=== PATIENT | female | born 1940 | race Caucasian/White ===

== ENCOUNTER → 2016-09-30 | Outpatient (CLI) | payer MEDICARE ==
[2016-09-30 11:25] LABS: ALT 34 U/L (9-52); AST 15 U/L (14-36); Alkaline Phosphatase 64 U/L (38-126); Anion Gap 11 mmol/L; Blood Urea Nitrogen 20 mg/dL (7-17); Calcium 9.5 mg/dL (8.4-10.2); Carbon Dioxide 29 mmol/L (22-30); Chloride 105 mmol/L (98-107); Cholesterol 152 mg/dL (<200); Glucose 112 mg/dL (74-99); HDL Cholesterol 44 mg/dL (40-60); Non-African American GFR(MDRD) 56 (>60 ml/min/1.73 sqM); Potassium 4.6 mmol/L (3.5-5.1); Sodium 145 mmol/L (137-145); Total Bilirubin 0.6 mg/dL (0.2-1.3); Total Protein 6.7 g/dL (6.3-8.2); Triglycerides 186 mg/dL (<150)
[2016-09-30 11:26] LABS: Basophils # (A) 0.1 k/uL (0-0.2); Basophils % (A) 1 %; CH 30.1; Eosinophils # (A) 0.1 k/uL (0-0.7); Eosinophils % (A) 2 %; HCT 43.6 % (34.0-46.0); HDW 2.83; HGB 14.1 gm/dL (11.4-16.0); Luc # (Auto) 0.16; Luc % (Auto) 3; Lymphocytes # (A) 1.6 k/uL (1.0-4.8); Lymphocytes % (A) 24 %; MCH 29.6 pg (25.0-35.0); MCHC 32.4 g/dL (31.0-37.0); MCV 91.4 fL (80.0-100.0); Monocytes # (A) 0.4 k/uL (0-1.0); Monocytes % (A) 5 %; Neutrophils # (A) 4.4 k/uL (1.3-7.7); Neutrophils % (A) 66 %; RBC 4.77 m/uL (3.80-5.40); RDW 14.3 % (11.5-15.5); WBC 6.6 k/uL (3.8-10.6); WBC (Perox) 6.91
== END | disposition home or self-care (01) ==
LOC: LABWHC1 10:23
PROVIDERS: ATTEND Internal Medicine
DX: E78.5 Hyperlipidemia, unspecified (principal); I10 Essential (primary) hypertension
CPT/HCPCS: 36415; 80053; 80061; 84439; 84443; 85025

== ENCOUNTER 2016-10-10 10:40 | Day surgery (SDC) | payer MEDICARE ==
[2016-10-07 15:51] VITALS: BMI 30.4
[~2016-10-10 10:40] MED LIST: LACTATED RINGERS 1,000 ML IV SCH; LIDOCAINE 1% 20 ML VIAL (10MG/ML) FOR IV START INTRADERMA PRN
[2016-10-10 12:07] VITALS: RESP 18; TEMP 98.8
[2016-10-10] MEDS ORDERED: PROPOFOL 10 MG/ML 20 ML VIAL IV ONE (12:07)
--- NOTE | 2016-10-10 12:30 | P.PCN ---
Date of Procedure: 10/10/16 Procedure(s) Performed: Procedure: Esophagogastroduodenoscopy and biopsy. Preoperative diagnosis: Dysphagia and stomach upset. Postoperative diagnosis: 1. Small sliding hiatal hernia with no obvious esophagitis or complicated reflux disease. 2. Mild gastritis and duodenitis. 3. Multiple biopsies obtained from the duodenum, antrum and esophagus. Preparation and sedation: Were provided by anesthesia. Brief clinical history: The patient is a 76-year-old female with chronic reflux symptoms who is referred for this evaluation because of dysphagia and issues with nausea and vomiting that she has had on and off worse over the last few months. This evaluation is to assess for complicated reflux disease or other pathology. Procedure: With the patient on her left lateral decubitus position and after informed consent and adequate sedation, I passed the Olympus-GIF 160 video upper endoscope through the cricopharyngeus down the esophagus. GE junction was around 38-39 cm from the incisors and there was a small sliding hiatal hernia. The esophagus did not show any obvious erosions, ulcers, strictures or Covington's esophagus. The endoscope was then passed into the stomach which was insufflated with air and inspected in detail including the retroflex view in the cardia. There was some mottling and erythema in the antrum but no ulcers or erosions. Pyloric channel did not show any ulcers. Duodenal bulb, post bulbar area and descending duodenum showed minimal erythema. I obtained multiple biopsies from the duodenum, antrum and esophagus then the endoscope was withdrawn. The patient tolerated the procedure well. Plan: The patient was reassured. Will await biopsy results. Will continue symptomatic treatment and further plans can be made based on her course and biopsy results. Would be happy to see in the office of her symptoms persist.
[2016-10-10 16:32] VITALS: BP 154/69; PULSE 53
== END 2016-10-10 13:20 | disposition home or self-care (01) ==
LOC: ORWHC2ENDO 10:40
DX: K29.50 Unspecified chronic gastritis without bleeding (principal); K29.80 Duodenitis without bleeding; K44.9 Diaphragmatic hernia without obstruction or gangrene; K21.9 Gastro-esophageal reflux disease without esophagitis; J45.909 Unspecified asthma, uncomplicated; J44.9 Chronic obstructive pulmonary disease, unspecified; I10 Essential (primary) hypertension; E78.5 Hyperlipidemia, unspecified; G47.33 Obstructive sleep apnea (adult) (pediatric); E07.9 Disorder of thyroid, unspecified; F39 Unspecified mood [affective] disorder; Z86.711 Personal history of pulmonary embolism; Z79.899 Other long term (current) drug therapy; Z88.1 Allergy status to other antibiotic agents; Z88.2 Allergy status to sulfonamides; Z88.8 Allergy status to other drugs, medicaments and biological substances
CPT/HCPCS: 88305; 88342; 43239; J2704

== ENCOUNTER → 2016-12-03 | Outpatient (CLI) | payer MEDICARE ==
--- NOTE | 2016-12-03 10:09 | CT ---
EXAMINATION TYPE: CT chest wo con DATE OF EXAM: 12/03/2016 9:40 AM COMPARISON: August 26, 2012 HISTORY: SOB CT DLP: 405.[address] of the chest was performed with lung and mediastinal window settings submitted. The la ck of contrast limits evaluation of the vascular, mediastinal and parenchymal structures including th e upper abdomen. LUNGS: Right upper lobe nodule is unchanged in size and measures 6 mm. Right middle lobe nodule withi n its periphery is also unchanged and measures 4 mm. 4 mm right upper lobe nodule is also unchanged a djacent to the fissure. Left upper lobe nodule is unchanged image 19 and measures 4.2 mm. No addition al nodules are seen. There is no evidence for pulmonary mass. Hyperinflation compatible with COPD. MEDIASTINUM/KADE: Thoracic aorta is of normal caliber with limited evaluation given lack of contrast . Atheromatous changes seen of the thoracic aorta. The heart is enlarged. Coronary artery calcific ations seen. Chronic small pericardial effusion measuring 9 mm posteriorly. No evidence for mediastin al mass. No lymph nodes greater than 1cm. UPPER ABDOMEN: Cholecystectomy clips identified. OTHER: No significant other abnormality. IMPRESSION: 1. Mild COPD change. No evidence for infiltrate. 2. Stable nonspecific pulmonary nodularity dating back to 2012 indicating benign process. 3. Cardiomegaly with small pericardial effusion.
== END | disposition home or self-care (01) ==
LOC: RADCTMAIN 09:12
PROVIDERS: ATTEND Internal Medicine Hematology & Oncology
DX: J44.9 Chronic obstructive pulmonary disease, unspecified (principal); I51.7 Cardiomegaly; I31.3 Pericardial effusion (noninflammatory); R92.8 Other abnormal and inconclusive findings on diagnostic imaging of breast; C44.92 Squamous cell carcinoma of skin, unspecified
CPT/HCPCS: 71250

== ENCOUNTER 2017-01-28 07:57 | Day surgery (SDC) | payer MEDICARE ==
[~2017-01-28 07:57] MED LIST changes: +ONDANSETRON 4 MG/2 ML VIAL IVP PRN
[2017-01-28] MEDS ORDERED: LACTATED RINGERS 1,000 ML IV ONE (08:14)
[2017-01-28] MEDS ORDERED: SCOPOLAMINE 1.5MG/72HR PATCH TRANSDERM ONE (08:28)
[2017-01-28] MEDS ORDERED: HEPARIN SODIUM,PORCINE 5,000 UNIT/ML 1 ML VIAL SQ ONE ×2 (08:30→08:53)
[2017-01-28] MEDS ORDERED: diphenhydrAMINE 50 MG/ML 1 ML VIAL ONE (09:37)
[2017-01-28] MEDS ORDERED: PROPOFOL 10 MG/ML 20 ML VIAL IV ONE (09:37)
[2017-01-28] MEDS ORDERED: LIDOCAINE 1% INJ 10MG/ML (20 ML MDV) SQ ONE ×2 (09:56)
--- NOTE | 2017-01-28 10:32 | P.OP ---
Date of Procedure: 01/28/17 Preoperative Diagnosis: Skin lesions of concern Postoperative Diagnosis: Lesions 3 left forehead, left leg, left arm Procedure(s) Performed: Wide excision skin lesions left forehead left arm left leg Implants: Anesthesia: RILEY Surgeon: Xiomara Stoner [employer]rication Supervisor #1: Sajan Arredondo Estimated Blood Loss (ml): 5 IV fluids (ml): 200 Pathology: other (Lesion left forehead, lesion left arm, lesion left leg) Condition: stable Disposition: PACU Indications for Procedure: Changing skin lesions Operative Findings: Skin lesions of concern left forehead and left leg left arm Description of Procedure: Patient was taken to the operating room and following sedation the area of the left forehead was prepped in a sterile fashion. One percent lidocaine was used to anesthetize the area of concern wide excision of the of concern was performed. This was approximately 2.5 cm in length. Following this deep Vicryl sutures were placed followed by closure of the skin with nylon suture. The specimen was oriented and marked with a suture. Following this the area of the left leg was approached. The area was prepped in a sterile fashion 1% lidocaine was used to anesthetize the area of concern, instruments were changed appropriately. Wide excision was performed and skin was closed using a nylon suture. The lesion was approximately 1 cm in size. Following this the area of the left arm was approached. Instruments were changed appropriately the arm was prepped and draped in a sterile fashion 1% lidocaine was used to anesthetize the area of concern wide excision was performed through the skin and into the subcutaneous tissue. The skin was then closed using nylon sutures. The specimen was marked for orientation. Patient tolerated procedure in stable condition. Specimens were sent to pathology. All instrument and sponge counts were correct at the end of the case.
--- NOTE | 2017-01-28 10:33 | P.DS ---
Providers Attending physician: Xiomara Stoner Primary care physician: Ying Pearson Plan - Discharge Summary New Discharge Prescriptions: No Action Albuterol Nebulized [Ventolin Nebulized] 1 applicate INHALATION QID PRN PRN Reason: Shortness Of Breath Albuterol Inhaler [Ventolin Hfa Inhaler] 2 puff INHALATION Q4HR PRN PRN Reason: Shortness Of Breath amLODIPine [Norvasc] 10 mg PO QAM ALPRAZolam [ALPRAZolam] 0.5 mg PO Q4-6H PRN PRN Reason: Anxiety Losartan Potassium [Losartan Potassium] 100 mg PO QAM Furosemide [Furosemide] 40 mg PO QAM Atenolol [Atenolol] 25 mg PO QAM Simvastatin [Simvastatin] 40 mg PO HS cloNIDine HCL [cloNIDine HCL] 0.3 mg PO BID Levothyroxine Sodium [Synthroid] 112 mcg PO QAM Metoclopramide [Reglan] 10 mg PO TID PRN PRN Reason: Nausea Potassium Chloride [Klor-Con 20] 20 meq PO QAM Lansoprazole [Prevacid] 30 mg PO BID hydrALAZINE HCL 50 mg PO TID Multivit-Min/Iron/Folic/Lutein [Centrum Silver Women Tablet] 1 each PO DAILY Acetaminophen Tab [Tylenol Tab] 500 mg PO Q6H PRN PRN Reason: Pain L.acidoph,Paracasei, B.lactis [Probiotic] 1 each PO DAILY Stool Softener 1 tab PO DAILY PRN PRN Reason: Constipation Discharge Medication List ALPRAZolam [ALPRAZolam] 0.5 mg PO Q4-6H PRN 07/01/14 [History] Albuterol Inhaler [Ventolin Hfa Inhaler] 2 puff INHALATION Q4HR PRN 07/01/14 [ History] Albuterol Nebulized [Ventolin Nebulized] 1 applicate INHALATION QID PRN [History] Atenolol [Atenolol] 25 mg PO QAM 07/01/14 [History] Furosemide [Furosemide] 40 mg PO QAM 07/01/14 [History] Levothyroxine Sodium [Synthroid] 112 mcg PO QAM 07/01/14 [History] Losartan Potassium [Losartan Potassium] 100 mg PO QAM 07/01/14 [History] Metoclopramide [Reglan] 10 mg PO TID PRN 07/01/14 [History] Simvastatin [Simvastatin] 40 mg PO HS 07/01/14 [History] amLODIPine [Norvasc] 10 mg PO QAM 07/01/14 [History] cloNIDine HCL [cloNIDine HCL] 0.3 mg PO BID 07/01/14 [History] Potassium Chloride [Klor-Con 20] 20 meq PO QAM 09/16/14 [History] Lansoprazole [Prevacid] 30 mg PO BID 03/15/16 [History] Multivit-Min/Iron/Folic/Lutein [Centrum Silver Women Tablet] 1 each PO DAILY [History] hydrALAZINE HCL 50 mg PO TID 03/15/16 [History] Acetaminophen Tab [Tylenol Tab] 500 mg PO Q6H PRN 10/07/16 [History] L.acidoph,Paracasei, B.lactis [Probiotic] 1 each PO DAILY 10/07/16 [History] Stool Softener 1 tab PO DAILY PRN 10/07/16 [History] Patient Instructions/Handouts: *Surgery [facility] - Scopalamine Patch Instructions Activity/Diet/Wound Care/Special Instructions: do not drive today Discharge Disposition: HOME SELF-CARE
[2017-01-28] MEDS: HYDROmorphone 1 MG/ML 1 ML SYRINGE IVP PRN ×2 (11:00→11:15)
[2017-01-28 11:02] VITALS: RESP 16; TEMP 97
[2017-01-28] MEDS ORDERED: ACETAMINOPHEN TAB 325 MG TAB PO ONE (11:59)
[2017-01-28 12:18] VITALS: BP 156/73; PULSE 55
--- NOTE | 2017-02-11 08:10 | CDI ---
Dr. Stoner Ms Franco was seen on 01/28/17 for excision of skin lesions. According the your procedure note the left arm was prepped, draped and a wide excision was performed through the skin and into the subcutaneous tissue. The size of the skin lesion excised from the left arm is needed for proper reporting purposes. Please clarify the size (lesion diameter plus the most narrow margins): * 0.5 cm or LESS * 0.6 to 1.0 cm * 1.1 to 2.0 cm * 2.1 to 3.0 cm * 3.1 to 4.0 cm * over 4.0 cm PLEASE RESPOND TO THIS QUERY BY DICTATING AN ADDENDUM TO YOUR PROCEDURE NOTE. Thank you for your assistance. MINA Rolle If you have any questions, please contact the Assistant Athletic Trainer, Eva Simpson, at [phone]. [facility]
--- NOTE | 2017-03-03 06:54 | CDI ---
Dr. Stoner Ms Franco was seen on 01/28/17 for excision of skin lesions. According the your procedure note the left arm was prepped, draped and a wide excision was performed through the skin and into the subcutaneous tissue. The size of the skin lesion excised from the left arm is needed for proper reporting purposes. Please clarify the size (lesion diameter plus the most narrow margins): * 0.5 cm or LESS * 0.6 to 1.0 cm * 1.1 to 2.0 cm * 2.1 to 3.0 cm * 3.1 to 4.0 cm * over 4.0 cm PLEASE RESPOND TO THIS QUERY BY DICTATING AN ADDENDUM TO YOUR PROCEDURE NOTE. Thank you for your assistance. MINA Rolle If you have any questions, please contact the [place] Attendant, Eva Simpson, at [phone]. I have dictated on this . [facility]
--- NOTE | 2017-03-04 14:12 | P.PN ---
Progress Note - Text This is an addendum on operative report in [facility] Franco from 01/28/2017. Please note the lesion on the left forearm was approximately 1.5 cm in size.
== END 2017-01-28 12:24 | disposition home or self-care (01) ==
LOC: OR 07:57
PROVIDERS: ATTEND Surgery
DX: D04.39 Carcinoma in situ of skin of other parts of face (principal); D04.62 Carcinoma in situ of skin of left upper limb, including shoulder; D04.72 Carcinoma in situ of skin of left lower limb, including hip; L57.0 Actinic keratosis; L57.8 Other skin changes due to chronic exposure to nonionizing radiation; I10 Essential (primary) hypertension; R00.1 Bradycardia, unspecified; J43.9 Emphysema, unspecified; J45.909 Unspecified asthma, uncomplicated; F41.9 Anxiety disorder, unspecified; K21.9 Gastro-esophageal reflux disease without esophagitis; N60.19 Diffuse cystic mastopathy of unspecified breast; E03.9 Hypothyroidism, unspecified; K59.00 Constipation, unspecified; Z87.891 Personal history of nicotine dependence; Z79.52 Long term (current) use of systemic steroids; Z88.6 Allergy status to analgesic agent; Z88.1 Allergy status to other antibiotic agents; Z88.5 Allergy status to narcotic agent; Z88.2 Allergy status to sulfonamides; Z88.8 Allergy status to other drugs, medicaments and biological substances; Z79.2 Long term (current) use of antibiotics; Z79.899 Other long term (current) drug therapy
CPT/HCPCS: 11643; 11601; 11602; 88305; J1200; J1644; J2405; J2001; J1170; J2704

== ENCOUNTER 2017-05-13 12:19 | Day surgery (SDC) | payer MEDICARE ==
[2017-05-07 12:08] VITALS: BMI 30.7
[~2017-05-13 12:19] MED LIST changes: +DEXAMETHASONE SOD PHOSPHATE 10 MG/ML 1 ML VIAL IV ONE; +HEPARIN SODIUM,PORCINE 5,000 UNIT/ML 1 ML VIAL SQ ONE; -LIDOCAINE 1% 20 ML VIAL (10MG/ML) FOR IV START INTRADERMA PRN; +MIDAZOLAM 2 MG/2 ML VIAL IV PRN; +ONDANSETRON 4 MG/2 ML VIAL IVP ONE; -ONDANSETRON 4 MG/2 ML VIAL IVP PRN; +Pre Op ABX Message 1 EACH MISC MISCELLANE ONE
[2017-05-13] MEDS ORDERED: LIDOCAINE 1% 20 ML VIAL (10MG/ML) FOR IV START INTRADERMA ONE (12:45)
[2017-05-13 13:01] LABS: Basophils % (A) 1 %; Eosinophils # (A) 0.1 k/uL (0-0.7); Eosinophils % (A) 2 %; HCT 41.9 % (34.0-46.0); HDW 2.76; HGB 13.5 gm/dL (11.4-16.0); Luc # (Auto) 0.07; Luc % (Auto) 1; Lymphocytes # (A) 1.6 k/uL (1.0-4.8); Lymphocytes % (A) 23 %; MCH 29.6 pg (25.0-35.0); MCHC 32.3 g/dL (31.0-37.0); MCV 91.8 fL (80.0-100.0); Mean Platelet Volume 7.7; Monocytes # (A) 0.3 k/uL (0-1.0); Monocytes % (A) 5 %; Neutrophils # (A) 4.7 k/uL (1.3-7.7); Neutrophils % (A) 69 %; RBC 4.56 m/uL (3.80-5.40); WBC 6.8 k/uL (3.8-10.6); WBC (Perox) 6.99
[2017-05-13 13:11] LABS: ALT 30 U/L (9-52); AST 16 U/L (14-36); Alkaline Phosphatase 60 U/L (38-126); Anion Gap 10 mmol/L; Blood Urea Nitrogen 15 mg/dL (7-17); Calcium 9.2 mg/dL (8.4-10.2); Carbon Dioxide 25 mmol/L (22-30); Chloride 107 mmol/L (98-107); Glucose 114 mg/dL (74-99); Non-African American GFR(MDRD) >60 (>60 ml/min/1.73 sqM); Potassium 4.1 mmol/L (3.5-5.1); Sodium 142 mmol/L (137-145); Total Bilirubin 0.5 mg/dL (0.2-1.3); Total Protein 6.1 g/dL (6.3-8.2)
[2017-05-13] MEDS ORDERED: HEPARIN SODIUM,PORCINE 5,000 UNIT/ML 1 ML VIAL SQ ONE (13:51)
[2017-05-13] MEDS ORDERED: diphenhydrAMINE 50 MG/ML 1 ML VIAL ONE (13:55)
[2017-05-13] MEDS ORDERED: PROPOFOL 10 MG/ML 20 ML VIAL IV ONE (13:55)
[2017-05-13] MEDS ORDERED: LIDOCAINE 1% INJ 10MG/ML (20 ML MDV) SQ ONE ×2 (14:40)
--- NOTE | 2017-05-13 15:31 | P.OP ---
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, one margin positive Postoperative Diagnosis: same Procedure(s) Performed: Excision of skin lesions Anesthesia: local Surgeon: Xiomara Stoner Estimated Blood Loss (ml): 10 IV fluids (ml): 550 Pathology: other (S skin lesions 7) Condition: stable Disposition: PACU Indications for Procedure: Multiple skin lesions of concern Operative Findings: Multiple skin lesions of concern Description of Procedure: The patient was taken to the operating room and following sedation the right posterior arm was prepped in sterile fashion 1% lidocaine was used to anesthetize the area of concern incision was carried down through the skin and subcutaneous tissue. Lesion was removed. This was 3 centimeters in size. The skin was closed using nylon suture. The lesion on the left hand was then prepped in a sterile fashion. 1% lidocaine was used to anesthetize the area of concern. The left lateral hand lesion was excised through the skin and subcutaneous tissue. Lesion was 4.5 centimeters by 2 cm in size. There was marked for orientation. The skin was closed using nylon suture. Three lesions were removed from the left posterior thigh. 1% lidocaine was used to anesthetize the skin. The incisions were carried through skin and subcutaneous tissue. Each lesion was approximately 1.5 cm in size. The skin was closed using nylon suture. Final two lesions were on the left posterior arm. 2 lesions were removed. One percent lidocaine was used to anesthetize the skin. The first was approximately 1.5 cm in size, the second was approximately 3 cm in size. Each lesion was removed through skin and subcutaneous tissue. The skin was closed using nylon suture. The area was dressed using a sterile dressing. All instrument and sponge counts were correct at the end of the case. The patient tolerated the procedure in stable condition.
--- NOTE | 2017-05-13 15:32 | P.DS ---
Providers Attending physician: Xiomara Stoner Primary care physician: Ying Pearson Plan - Discharge Summary New Discharge Prescriptions: No Action Albuterol Nebulized [Ventolin Nebulized] 1 applicate INHALATION QID PRN PRN Reason: Shortness Of Breath Albuterol Inhaler [Ventolin Hfa Inhaler] 2 puff INHALATION Q4HR PRN PRN Reason: Shortness Of Breath amLODIPine [Norvasc] 10 mg PO QAM ALPRAZolam [ALPRAZolam] 0.5 mg PO Q4-6H PRN PRN Reason: Anxiety Losartan Potassium [Losartan Potassium] 100 mg PO QAM Furosemide [Furosemide] 40 mg PO QAM Atenolol [Atenolol] 25 mg PO QAM Simvastatin [Simvastatin] 40 mg PO HS cloNIDine HCL [cloNIDine HCL] 0.3 mg PO BID Levothyroxine Sodium [Synthroid] 112 mcg PO QAM Metoclopramide [Reglan] 10 mg PO QAM Lansoprazole [Prevacid] 30 mg PO QAM hydrALAZINE HCL 50 mg PO BID Multivit-Min/Iron/Folic/Lutein [Centrum Silver Women Tablet] 1 each PO DAILY Acetaminophen Tab [Tylenol Tab] 500 mg PO Q6H PRN PRN Reason: Pain L.acidoph,Paracasei, B.lactis [Probiotic] 1 each PO DAILY Stool Softener 1 tab PO DAILY PRN PRN Reason: Constipation diphenhydrAMINE [Benadryl] 25 mg PO HS PRN PRN Reason: sleep/allergies Melatonin 10 mg PO HS PRN PRN Reason: sleep Potassium Chloride [Klor-Con 10] 20 meq PO DAILY Discharge Medication List ALPRAZolam [ALPRAZolam] 0.5 mg PO Q4-6H PRN 07/01/14 [History] Albuterol Inhaler [Ventolin Hfa Inhaler] 2 puff INHALATION Q4HR PRN 07/01/14 [ History] Albuterol Nebulized [Ventolin Nebulized] 1 applicate INHALATION QID PRN [History] Atenolol [Atenolol] 25 mg PO QAM 07/01/14 [History] Furosemide [Furosemide] 40 mg PO QAM 07/01/14 [History] Levothyroxine Sodium [Synthroid] 112 mcg PO QAM 07/01/14 [History] Losartan Potassium [Losartan Potassium] 100 mg PO QAM 07/01/14 [History] Metoclopramide [Reglan] 10 mg PO QAM 07/01/14 [History] Simvastatin [Simvastatin] 40 mg PO HS 07/01/14 [History] amLODIPine [Norvasc] 10 mg PO QAM 07/01/14 [History] cloNIDine HCL [cloNIDine HCL] 0.3 mg PO BID 07/01/14 [History] Lansoprazole [Prevacid] 30 mg PO QAM 03/15/16 [History] Multivit-Min/Iron/Folic/Lutein [Centrum Silver Women Tablet] 1 each PO DAILY [History] hydrALAZINE HCL 50 mg PO BID 03/15/16 [History] Acetaminophen Tab [Tylenol Tab] 500 mg PO Q6H PRN 10/07/16 [History] L.acidoph,Paracasei, B.lactis [Probiotic] 1 each PO DAILY 10/07/16 [History] Stool Softener 1 tab PO DAILY PRN 10/07/16 [History] Melatonin 10 mg PO HS PRN 05/07/17 [History] Potassium Chloride [Klor-Con 10] 20 meq PO DAILY 05/07/17 [History] diphenhydrAMINE [Benadryl] 25 mg PO HS PRN 05/07/17 [History] Follow up Appointment(s)/Referral(s): Xiomara Stoner MD [STAFF PHYSICIAN] - 1 Week Activity/Diet/Wound Care/Special Instructions: Do not shower [address] Do not drive if taking narcotic pain medication Discharge Disposition: HOME SELF-CARE
[2017-05-13] MEDS: fentaNYL (PF) 50 MCG/ML 2 ML AMP IV PRN ×2 (15:46→15:59)
[2017-05-13 16:16] VITALS: TEMP 97
[2017-05-13 16:19] VITALS: RESP 18
[2017-05-13 17:15] VITALS: PULSE 55
[2017-05-13 17:17] VITALS: BP 145/78
== END 2017-05-13 17:16 | disposition home or self-care (01) ==
LOC: OR 12:19
PROVIDERS: ATTEND Surgery
DX: L90.5 Scar conditions and fibrosis of skin (principal); L57.8 Other skin changes due to chronic exposure to nonionizing radiation; D04.62 Carcinoma in situ of skin of left upper limb, including shoulder; D04.72 Carcinoma in situ of skin of left lower limb, including hip; L57.0 Actinic keratosis; I10 Essential (primary) hypertension; J44.9 Chronic obstructive pulmonary disease, unspecified; E07.9 Disorder of thyroid, unspecified; K21.9 Gastro-esophageal reflux disease without esophagitis; F41.9 Anxiety disorder, unspecified; M19.90 Unspecified osteoarthritis, unspecified site; Z79.899 Other long term (current) drug therapy; Z88.6 Allergy status to analgesic agent; Z88.1 Allergy status to other antibiotic agents; Z88.5 Allergy status to narcotic agent; Z88.2 Allergy status to sulfonamides
CPT/HCPCS: 88305; 80053; 85025; 11406; 11402; 11626; 11602; 11603; J1200; J1644; J1100; J2405; J2001; J3010; J2704

== ENCOUNTER → 2017-12-02 | Outpatient (CLI) | payer MEDICARE ==
--- NOTE | 2017-12-02 14:48 | CT ---
EXAMINATION TYPE: CT angio chest DATE OF EXAM: 12/02/2017 COMPARISON: 12/03/2016 HISTORY: Shortness of breath CT DLP: 470.6 mGycm. Automated Exposure Control for Dose Reduction was Utilized. CONTRAST: CTA scan of the thorax is performed with IV Contrast, patient injected with 74 mL of Isovue 370, pulm onary embolism protocol. MIP Images are created on CT scanner and reviewed. FINDINGS: LUNGS: There is right apical pleural parenchymal scarring. Right middle lobe 3 mm pulmonary nodule pr esent on series 5 image 87. Right upper lobe 6 mm pulmonary nodule is seen on series 5 image 59. Thes e are unchanged in size from the prior exam and stated to be stable back to 2012 on the exam of 2016. The previously seen 4 mm upper lobe pulmonary nodule adjacent to the fissure is no longer prese nt. The known left upper lobe pulmonary nodule measuring 4 mm on the prior exam of 2016 is also not v isualized on today's examination. No focal consolidation is seen. Minimal centrilobular emphysema i s again noted. There is no pleural effusion or pneumothorax seen. The tracheobronchial tree is paten t. MEDIASTINUM: There is satisfactory enhancement of the pulmonary artery and its branches, there is no CT evidence for pulmonary embolism. There are no greater than 1 cm hilar or mediastinal lymph nodes. The right and left main pulmonary arteries are enlarged with the right measuring 3.0 cm and the left measuring 2.6 cm. Moderate three-vessel coronary calcifications are seen. Heart is mildly enlarged. There is a small pericardial effusion. OTHER: Probable prominent, Danny is seen on the left with cortical renal atrophy. Gallbladder surgic ally absent. Atrophy of the pancreatic parenchyma is also noted. IMPRESSION: 1. No evidence of pulmonary embolus. Enlargement of the ulnar arteries suggests underlying pulmonary arterial hypertension. 2. Mild pulmonary emphysema and stable bilateral benign pulmonary nodules. 3. Cardiomegaly and persistent trace pericardial effusion.
== END | disposition home or self-care (01) ==
LOC: RADCTMAIN 12:35
PROVIDERS: ATTEND Internal Medicine
DX: J43.9 Emphysema, unspecified (principal); R91.8 Other nonspecific abnormal finding of lung field; I51.7 Cardiomegaly; I31.3 Pericardial effusion (noninflammatory); Z88.5 Allergy status to narcotic agent; Z88.6 Allergy status to analgesic agent; Z88.2 Allergy status to sulfonamides; Z91.011 Allergy to milk products; Z88.1 Allergy status to other antibiotic agents
CPT/HCPCS: 82565; 84520; 71275; 36415; Q9967

== ENCOUNTER 2018-03-19 13:18 | Inpatient (IN) | payer MEDICARE ==
[2018-03-19 13:50] LABS: Basophils # (A) 0.1 k/uL (0-0.2); Basophils % (A) 1 %; Eosinophils # (A) 0.1 k/uL (0-0.7); Eosinophils % (A) 1 %; Lymphocytes # (A) 2.6 k/uL (1.0-4.8); Lymphocytes % (A) 27 %; MCH 29.8 pg (25.0-35.0); MCHC 32.7 g/dL (31.0-37.0); MCV 91.1 fL (80.0-100.0); Mean Platelet Volume 6.8; Monocytes # (A) 0.4 k/uL (0-1.0); Monocytes % (A) 4 %; Neutrophils # (A) 6.1 k/uL (1.3-7.7); Neutrophils % (A) 64 %; Platelet Count 288 k/uL (150-450); RBC 4.72 m/uL (3.80-5.40); RDW 14.1 % (11.5-15.5); WBC 9.4 k/uL (3.8-10.6)
--- NOTE | 2018-03-19 14:04 | XR ---
EXAMINATION TYPE: XR chest 2V DATE OF EXAM: 03/19/2018 COMPARISON: 09/02/2012 HISTORY: 77-year-old female with chest pain and shortness of breath TECHNIQUE: AP and lateral views FINDINGS: Heart mildly enlarged. Atherosclerotic arch calcifications. Mild diffuse interstitial prominence. Lioda ntration anterior right hemidiaphragm redemonstrated. Mild diffuse interstitial prominence without co nsolidation or pleural effusion. IMPRESSION: Borderline cardiomegaly. There are chronic changes, possible bronchitis or asthma. No definite acute process.
[2018-03-19 14:05] LABS: Albumin 4.6 g/dL (3.5-5.0); Calcium 9.9 mg/dL (8.4-10.2); Magnesium 1.8 mg/dL (1.6-2.3); Potassium 3.8 mmol/L (3.5-5.1); Total Bilirubin 0.6 mg/dL (0.2-1.3); Total Protein 6.6 g/dL (6.3-8.2)
[2018-03-19 14:10] LABS: Partial Thromboplastin Time 23.1 sec (22.0-30.0); Prothrombin Time 9.7 sec (9.0-12.0)
[2018-03-19 14:12] LABS: Creatine Kinase 45 U/L (30-135)
[2018-03-19 14:21] LABS: D-Dimer 0.72 mg/L FEU (<0.60)
[2018-03-19 14:24] LABS: Creatine Kinase MB 0.8 ng/mL (0.0-2.4); Troponin I <0.012 ng/mL (0.000-0.034)
--- NOTE | 2018-03-19 15:37 | CT ---
EXAMINATION TYPE: CT angio chest DATE OF EXAM: 03/19/2018 COMPARISON: 12/02/2017 HISTORY: 77-year-old female with pain, Shortness of breath and cough TECHNIQUE: Contiguous axial scanning of the chest performed with IV Contrast, patient injected with 7 5 mL of Isovue 370. Coronal/sagittal MIP reconstructions performed. CT DLP: 597 mGycm Automated exposure control for dose reduction was used. FINDINGS: Heart is borderline to mildly enlarged with similar small pericardial effusion measuring up to 1.1 cm thick. Coronary vessel calcifications are present. Aorta normal caliber with moderate atherosclerotic arch calcifications and conventional arch vessel b ranching anatomy. Satisfactory opacification of the pulmonary artery system. Redemonstrated large caliber to the main r ight and left pulmonary arteries at 3.0 and 2.8 cm, respectively. Some mild respiratory motion in the lower lobes. No definite pulmonary embolus. Stable nonenlarged and borderline-sized mediastinal lymph nodes measuring up to 1 cm. Mild biapical pleural-parenchymal scarring. Strandy scarring or atelectasis in the lower lungs. Uncha nged 6 mm right midlung pulmonary nodule suggesting a benign etiology. Tiny hiatal hernia. Visualized upper abdomen shows cholecystectomy clips. Bones: Endplate spondylosis mid to lower thoracic spine. IMPRESSION: 1. BORDERLINE TO MILD CARDIOMEGALY WITH SIMILAR SMALL PERICARDIAL EFFUSION. 2. PULMONARY ARTERIAL HYPERTENSION. THERE ARE SOME MILD MOTION ARTIFACTS IN THE LOWER LOBES BUT NO DE FINITE PULMONARY EMBOLUS.
[2018-03-19] MEDS ORDERED: CLOPIDOGREL 75 MG TAB PO STA (15:45)
[2018-03-19] MEDS ORDERED: NALOXONE 0.4 MG/ML 1 ML VIAL IV PRN (16:30)
[2018-03-19] MEDS ORDERED: ALBUTEROL NEBULIZED 2.5 MG/3 ML INHALATION PRN (16:31)
[2018-03-19] MEDS ORDERED: NITROGLYCERIN SL TABS 0.4 MG TAB SUBLINGUAL PRN (16:33)
--- NOTE | 2018-03-19 16:40 | ED ---
General Adult HPI - General Chief complaint: Chest Pain Stated complaint: Chest pain Source: patient Mode of arrival: wheelchair Limitations: no limitations - History of Present Illness Initial comments: Dictation was produced using [employer] dictation software. please excuse any grammatical, word or spelling errors. Chief Complaint: 77-year-old female past medical history asthma, cancer, COPD, dyslipidemia, hypertension, PE presents with acute onset chest pain shortness of breath. History of Present Illness: Medardo is a 77-year-old female with multiple comorbidities presents with acute onset chest pain or shortness of breath. Patient states the new onset was with the chest pain. Patient states she's been short of breath for several days now. Patient has cardiac history. She was evaluated by cardiology and told that she was to receive a cardiac cath. Patient denies any constitutional symptoms. She states that her chest pain is to her midsternal chest. It causes her crushing sensation. Patient never experienced anything like this before. The ROS documented in this emergency department record has been reviewed and confirmed by me. Those systems with pertinent positive or negative responses have been documented in the HPI. All other systems are other negative and/or noncontributory. - Related Data Home Medications Medication Instructions Recorded Confirmed ALPRAZolam 0.5 mg PO Q4-6H PRN 07/01/14 03/19/18 Albuterol Inhaler [Ventolin Hfa 2 puff INHALATION RT-Q4H PRN 07/01/14 03/19/18 Inhaler] Albuterol Nebulized [Ventolin 1 applicate INHALATION QID PRN 07/01/14 03/19/18 Nebulized] Atenolol 25 mg PO QAM 07/01/14 03/19/18 Furosemide 40 mg PO QAM 07/01/14 03/19/18 Levothyroxine Sodium [Synthroid] 112 mcg PO QAM 07/01/14 03/19/18 Losartan Potassium 100 mg PO QAM 07/01/14 03/19/18 Metoclopramide [Reglan] 10 mg PO TID 07/01/14 03/19/18 Simvastatin 40 mg PO HS 07/01/14 03/19/18 amLODIPine [Norvasc] 10 mg PO QAM 07/01/14 03/19/18 cloNIDine HCL 0.3 mg PO BID 07/01/14 03/19/18 Multivit-Min/Iron/Folic/Lutein 1 tab PO DAILY 03/15/16 03/19/18 [Centrum Silver Women Tablet] hydrALAZINE HCL 50 mg PO TID 03/15/16 03/19/18 Acetaminophen Tab [Tylenol Tab] 500 mg PO Q6H PRN 10/07/16 03/19/18 L.acidoph,Paracasei, B.lactis 1 cap PO DAILY 10/07/16 03/19/18 [Probiotic] Stool Softener 1 tab PO DAILY PRN 10/07/16 03/19/18 Potassium Chloride [Klor-Con 10] 20 meq PO DAILY 05/07/17 03/19/18 Allergies Allergy/AdvReac Type Severity Reaction Status Date / Time adhesive Allergy SKIN Verified 03/19/18 14:57 REDDENS & BLISTERS- PAPER TAPE OKAY azithromycin [From Zithromax] Allergy Nausea & Verified 03/19/18 14:57 Vomiting meperidine HCl [From Demerol] Allergy Nausea & Verified 03/19/18 14:57 Vomiting morphine Allergy Nausea & Verified 03/19/18 14:57 Vomiting Sulfa (Sulfonamide Allergy Nausea & Verified 03/19/18 14:57 Antibiotics) Vomiting aspirin AdvReac STOMACH Verified 03/19/18 14:57 HERRERA milk AdvReac Nausea-Gas,Bloating,Stomach Verified 03/19/18 14:57 upset anesthesia Allergy facial/arms/hands Uncoded 03/19/18 13:28 swelling,skin"turns beet red", nausea DISSOLVING SUTURES Allergy INFECTION Uncoded 03/19/18 13:28 Review of Systems ROS Statement: Those systems with pertinent positive or pertinent negative responses have been documented in the HPI. ROS Other: All systems not noted in ROS Statement are negative. 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 melanoma lesion on back, History of Any Multi-Drug Resistant Organisms: None Reported Past Surgical History: Bowel Resection, Cholecystectomy, Hernia Repair, Hysterectomy, Joint Replacement, Orthopedic Surgery Additional Past Surgical History / Comment(s): LEFT KNEE REPLACED, PARTIAL THYROIDECTOMY,HIATAL HERNIA REPAIR 07/2013, ABDOMINAL HERNIA REPAIR,MULTIPLE SKIN LESION ( NECK,RT UPPER & LOWER THIGH,LT ARM,RT ARM, face, back-melanoma) SKIN GRAFTS TO VINOD.LEGS-LT EAR-LT MIDDLE FINGER,ACHILLES TENDON surgery Past Anesthesia/Blood Transfusion Reactions: Previous Problems w/ Anesthesia, Motion Sickness, Postoperative Nausea & Vomiting (PONV) Additional Past Anesthesia/Blood Transfusion Reaction / Comment(s): STATES "HAS HAD SWELLING TO FACE,HANDS,ARMS AND SKIN TURNS "BEET RED"WITH ANESTHESIA-with IV sedation. stgates no problems with last surgery at [facility] 01/2017-anesthesia records on chart Past Psychological History: Anxiety Smoking Status: Former smoker Past Alcohol Use History: None Reported Past Drug Use History: None Reported - Past Family History Mother Family Medical History: Diabetes Mellitus Additional Family Medical History / Comment(s): HEART PROBLEMS Sister(s) Family Medical History: Diabetes Mellitus, Myocardial Infarction ([place]) Additional Family Medical History / Comment(s): EMPHYSEMA Father Family Medical History: Cancer Additional Family Medical History / Comment(s): LUNG CA. General Exam - General Exam Comments Initial Comments: PHYSICAL EXAM: General Impression: Alert and oriented x3, tachypneic HEENT: Normocephalic atraumatic, extra-ocular movements intact, pupils equal and reactive to light bilaterally, mucous membranes moist. Cardiovascular: Heart regular rate and rhythm, S1&S2 audible, no murmurs, rubs or gallops Chest: Lungs clear to auscultation bilaterally, no rhonchi, no wheeze, no rales Abdomen: Bowel sounds present, abdomen soft, non-tender, non-distended, no organomegaly Musculoskeletal: Pulses present and equal in all extremities, no peripheral edema Motor: Power 5/5 bilaterally, no focal deficits noted Neurological: CN II-XII grossly intact, no focal motor or sensory deficits noted Skin: Intact with no visualized rashes Psych: Anxious, tearful Limitations: no limitations Course Vital Signs 03/19/18 03/19/18 13:22 14:18 Temperature 97.3 F L Pulse Rate 60 72 Respiratory 18 22 Rate Blood Pressure 206/84 173/72 O2 Sat by Pulse 96 98 Oximetry Medical Decision Making - Medical Decision Making ED course: 77-year-old female with multiple comorbidities presents with chest pain and shortness of breath. Vital signs upon arrival shows blood pressure 206/84. Chart review shows that patient has history of elevated blood pressure requiring a myriad of antihypertensives. Laboratory evaluation obtained. CBC is unremarkable. Coag panel unremarkable. D-dimer is elevated 0.72. Metabolic panel shows mild hyperglycemia 161. Cardiac enzymes are negative. Chest x-ray shows chronic findings, nothing acute. Given elevated d- dimer CT angios the chest was obtained not showing any findings to suggest pulmonary emboli. Patient's symptoms are concerning for ACS given that is substernal chest pressure and patient has multiple comorbidities. Patient benefit from a inpatient stay for serial troponins and cardiology consultation. Patient given Plavix she is ALLERGIC to aspirin. Discussed patient case with admitting physician who is aware. EKG Interpretation: A 12 lead EKG was obtained. It was interpreted by myself and attending physician. There is a P wave before every QRS complex. Rate is 83. Rhythm is sinus rhythm, IA interval 124, QRS 80, QTc 455. QT is not prolonged. No ST segment depression or elevation. Overall this EKG is unremarkable - Lab Data Result diagrams: 03/19/18 13:28 03/19/18 13:28 Lab Results 03/19/18 03/19/18 03/19/18 Range/Units 13:28 13:28 13:28 WBC 9.4 (3.8-10.6) k/uL RBC 4.72 (3.80-5.40) m/uL Hgb 14.0 (11.4-16.0) gm/dL Hct 43.0 (34.0-46.0) % MCV 91.1 (80.0-100.0) fL MCH 29.8 (25.0-35.0) pg MCHC 32.7 (31.0-37.0) g/dL RDW 14.1 (11.5-15.5) % Plt Count 288 (150-450) k/uL Neutrophils % 64 % Lymphocytes % 27 % Monocytes % 4 % Eosinophils % 1 % Basophils % 1 % Neutrophils # 6.1 (1.3-7.7) k/uL Lymphocytes # 2.6 (1.0-4.8) k/uL Monocytes # 0.4 (0-1.0) k/uL Eosinophils # 0.1 (0-0.7) k/uL Basophils # 0.1 (0-0.2) k/uL PT (9.0-12.0) sec INR (<1.2) APTT (22.0-30.0) sec D-Dimer (<0.60) mg/L FEU Sodium 140 (137-145) mmol/L Potassium 3.8 (3.5-5.1) mmol/L Chloride 102 (98-107) mmol/L Carbon Dioxide 24 (22-30) mmol/L Anion Gap 14 mmol/L BUN 10 (7-17) mg/dL Creatinine 0.91 (0.52-1.04) mg/dL Est GFR (CKD-EPI)AfAm 70 (>60 ml/min/1.73 sqM) Est GFR (CKD-EPI)NonAf 61 (>60 ml/min/1.73 sqM) Glucose 161 H (74-99) mg/dL Calcium 9.9 (8.4-10.2) mg/dL Magnesium 1.8 (1.6-2.3) mg/dL Total Bilirubin 0.6 (0.2-1.3) mg/dL AST 26 (14-36) U/L ALT 27 (9-52) U/L Alkaline Phosphatase 59 (38-126) U/L Total Creatine Kinase 45 (30-135) U/L CK-MB (CK-2) 0.8 (0.0-2.4) ng/mL CK-MB (CK-2) Rel Index 1.8 Troponin I <0.012 (0.000-0.034) ng/mL Total Protein 6.6 (6.3-8.2) g/dL Albumin 4.6 (3.5-5.0) g/dL 03/19/18 Range/Units 13:28 WBC (3.8-10.6) k/uL RBC (3.80-5.40) m/uL Hgb (11.4-16.0) gm/dL Hct (34.0-46.0) % MCV (80.0-100.0) fL MCH (25.0-35.0) pg MCHC (31.0-37.0) g/dL RDW (11.5-15.5) % Plt Count (150-450) k/uL Neutrophils % % Lymphocytes % % Monocytes % % Eosinophils % % Basophils % % Neutrophils # (1.3-7.7) k/uL Lymphocytes # (1.0-4.8) k/uL Monocytes # (0-1.0) k/uL Eosinophils # (0-0.7) k/uL Basophils # (0-0.2) k/uL PT 9.7 (9.0-12.0) sec INR 1.0 (<1.2) APTT 23.1 (22.0-30.0) sec D-Dimer 0.72 H (<0.60) mg/L FEU Sodium (137-145) mmol/L Potassium (3.5-5.1) mmol/L Chloride (98-107) mmol/L Carbon Dioxide (22-30) mmol/L Anion Gap mmol/L BUN (7-17) mg/dL Creatinine (0.52-1.04) mg/dL Est GFR (CKD-EPI)AfAm (>60 ml/min/1.73 sqM) Est GFR (CKD-EPI)NonAf (>60 ml/min/1.73 sqM) Glucose (74-99) mg/dL Calcium (8.4-10.2) mg/dL Magnesium (1.6-2.3) mg/dL Total Bilirubin (0.2-1.3) mg/dL AST (14-36) U/L ALT (9-52) U/L Alkaline Phosphatase (38-126) U/L Total Creatine Kinase (30-135) U/L CK-MB (CK-2) (0.0-2.4) ng/mL CK-MB (CK-2) Rel Index Troponin I (0.000-0.034) ng/mL Total Protein (6.3-8.2) g/dL Albumin (3.5-5.0) g/dL Disposition Clinical Impression: Chest pain Disposition: ADMITTED IP TO THIS HOSP Condition: Fair Referrals: Ying Pearson MD [Primary Care Provider] - 1-2 days Time of Disposition: 16:40
[2018-03-19] MEDS ORDERED: hydrALAZINE HCL 50 MG TAB PO STA (16:47)
[2018-03-19] MEDS ORDERED: amLODIPine 5 MG TAB PO STA (16:47)
[2018-03-19] MEDS ORDERED: LEVOTHYROXINE 112 MCG TAB PO STA (16:48)
[2018-03-19] MEDS ORDERED: LOSARTAN 50 MG TAB PO STA (16:49)
[2018-03-19] MEDS ORDERED: POTASSIUM CHLORIDE ER 20 MEQ TAB.ER PO STA (16:49)
[2018-03-19] MEDS ORDERED: IPRATROPIUM-ALBUTEROL 3 ML NEB INHALATION PRN (17:23)
[2018-03-19] MEDS ORDERED: predniSONE 20 MG TAB PO STA (17:24)
[2018-03-19] MEDS ORDERED: methylPREDNISolone SOD SUCCI 125 MG/2 ML VIAL IV STA (17:25)
[2018-03-19] MEDS ORDERED: ALPRAZolam 0.5 MG TAB PO PRN (17:32)
--- NOTE | 2018-03-19 17:42 | P.HPIM ---
History of Present Illness 71-year-old pleasant female came in with comments of shortness of breath has been going on since November and today patient started having pressure-like chest pain 4/10 in severity nonradiating associated with it seems shortness of breath nonpruritic in nature, no fevers no chills denied is comparing of some dry cough. Patient does have sleep apnea doesn't use CPAP machine. Patient had a CAT scan of the chest which is suspicious for pulmonary hypertension no PE no interstitial infiltrate or pneumonia. Patient had some nonspecific ST-T wave changes fourth set of troponin is negative. Patient is supposed to get cardiac catheterization scheduled by Dr. Corona as an outpatient. Patient had a stress test last year which was negative. Patient denied any fever chills, dysuria. Patient becomes quite short of breath with minimal exertion patient does not have any elevated JVD and is wheezing on exam which is only mildly wheezing all give her a dose of steroids inhalational treatments will obtain an ABG we may need a pulmonary consultation as well. Patient smoked years ago. Patient does have history of asthma. Patient does have mild pedal edema but does not have any elevated JVD patient had multiple skins, several lesions removed in the past Review of Systems REVIEW OF SYSTEMS: CONSTITUTIONAL: No fever, no malaise, no fatigue. HEENT: No recent visual problems or hearing problems. Denied any sore throat. CARDIOVASCULAR: No orthopnea, PND, no palpitations, no syncope. PULMONARY: no hemoptysis. GASTROINTESTINAL: No diarrhea, no nausea, no vomiting, no abdominal pain. Normoactive bowel sounds. NEUROLOGICAL: No headaches, no weakness, no numbness. HEMATOLOGICAL: Denies any bleeding or petechiae. GENITOURINARY: Denies any burning micturition, frequency, or urgency. MUSCULOSKELETAL/RHEUMATOLOGICAL: Denies any joint pain, swelling, or any muscle pain. ENDOCRINE: Denies any polyuria or polydipsia. The rest of the 14-point review of systems is negative. 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 melanoma lesion on back, History of Any Multi-Drug Resistant Organisms: None Reported Past Surgical History: Bowel Resection, Cholecystectomy, Hernia Repair, Hysterectomy, Joint Replacement, Orthopedic Surgery Additional Past Surgical History / Comment(s): LEFT KNEE REPLACED, PARTIAL THYROIDECTOMY,HIATAL HERNIA REPAIR 07/2013, ABDOMINAL HERNIA REPAIR,MULTIPLE SKIN LESION ( NECK,RT UPPER & LOWER THIGH,LT ARM,RT ARM, face, back-melanoma) SKIN GRAFTS TO VINOD.LEGS-LT EAR-LT MIDDLE FINGER,ACHILLES TENDON surgery Past Anesthesia/Blood Transfusion Reactions: Previous Problems w/ Anesthesia, Motion Sickness, Postoperative Nausea & Vomiting (PONV) Additional Past Anesthesia/Blood Transfusion Reaction / Comment(s): STATES "HAS HAD SWELLING TO FACE,HANDS,ARMS AND SKIN TURNS "BEET RED"WITH ANESTHESIA-with IV sedation. stgates no problems with last surgery at [facility] 01/2017-anesthesia records on chart Past Psychological History: Anxiety Smoking Status: Former smoker Past Alcohol Use History: None Reported Past Drug Use History: None Reported - Past Family History Mother Family Medical History: Diabetes Mellitus Additional Family Medical History / Comment(s): HEART PROBLEMS Sister(s) Family Medical History: Diabetes Mellitus, Myocardial Infarction ([place]) Additional Family Medical History / Comment(s): EMPHYSEMA Father Family Medical History: Cancer Additional Family Medical History / Comment(s): LUNG CA. Medications and Allergies Home Medications Medication Instructions Recorded Confirmed Type ALPRAZolam 0.5 mg PO Q4-6H PRN 07/01/14 03/19/18 History Albuterol Inhaler [Ventolin Hfa 2 puff INHALATION RT-Q4H PRN 07/01/14 03/19/18 History Inhaler] Albuterol Nebulized [Ventolin 1 applicate INHALATION QID PRN 07/01/14 03/19/18 History Nebulized] Atenolol 25 mg PO QAM 07/01/14 03/19/18 History Furosemide 40 mg PO QAM 07/01/14 03/19/18 History Levothyroxine Sodium [Synthroid] 112 mcg PO QAM 07/01/14 03/19/18 History Losartan Potassium 100 mg PO QAM 07/01/14 03/19/18 History Metoclopramide [Reglan] 10 mg PO TID 07/01/14 03/19/18 History Simvastatin 40 mg PO HS 07/01/14 03/19/18 History amLODIPine [Norvasc] 10 mg PO QAM 07/01/14 03/19/18 History cloNIDine HCL 0.3 mg PO BID 07/01/14 03/19/18 History Multivit-Min/Iron/Folic/Lutein 1 tab PO DAILY 03/15/16 03/19/18 History [Centrum Silver Women Tablet] hydrALAZINE HCL 50 mg PO TID 03/15/16 03/19/18 History Acetaminophen Tab [Tylenol Tab] 500 mg PO Q6H PRN 10/07/16 03/19/18 History L.acidoph,Paracasei, B.lactis 1 cap PO DAILY 10/07/16 03/19/18 History [Probiotic] Stool Softener 1 tab PO DAILY PRN 10/07/16 03/19/18 History Potassium Chloride [Klor-Con 10] 20 meq PO DAILY 05/07/17 03/19/18 History Allergies Allergy/AdvReac Type Severity Reaction Status Date / Time adhesive Allergy SKIN Verified 03/19/18 14:57 REDDENS & BLISTERS- PAPER TAPE OKAY azithromycin [From Zithromax] Allergy Nausea & Verified 03/19/18 14:57 Vomiting meperidine HCl [From Demerol] Allergy Nausea & Verified 03/19/18 14:57 Vomiting morphine Allergy Nausea & Verified 03/19/18 14:57 Vomiting Sulfa (Sulfonamide Allergy Nausea & Verified 03/19/18 14:57 Antibiotics) Vomiting aspirin AdvReac STOMACH Verified 03/19/18 14:57 HERRERA milk AdvReac Nausea-Gas,Bloating,Stomach Verified 03/19/18 14:57 upset anesthesia Allergy facial/arms/hands Uncoded 03/19/18 13:28 swelling,skin"turns beet red", nausea DISSOLVING SUTURES Allergy INFECTION Uncoded 03/19/18 13:28 Physical Exam Vitals: Vital Signs Temp Pulse Resp BP Pulse Ox 03/19/18 16:56 77 24 178/84 96 03/19/18 14:18 72 22 173/72 98 03/19/18 13:22 97.3 F L 60 18 206/84 96 Intake and Output 03/19/18 03/19/18 03/19/18 06:59 14:59 22:59 Other: Weight 83.007 kg PHYSICAL EXAMINATION: GENERAL: The patient is alert and oriented x3, not in any acute distress. Well developed, well nourished. HEENT: Pupils are round and equally reacting to light. EOMI. No scleral icterus. No conjunctival pallor. Normocephalic, atraumatic. No pharyngeal erythema. No thyromegaly. CARDIOVASCULAR: S1 and S2 present. No murmurs, rubs, or gallops. PULMONARY: Minimal expiratory wheezing minimally decreased air entry into bilateral lung khalil. ABDOMEN: Soft, nontender, nondistended, normoactive bowel sounds. No palpable organomegaly. MUSCULOSKELETAL: No joint swelling or deformity. EXTREMITIES: No cyanosis, clubbing, or pedal edema. NEUROLOGICAL: Gross neurological examination did not reveal any focal deficits. SKIN: No rashes. Results CBC & Chem 7: 03/19/18 13:28 03/19/18 13:28 Labs: Abnormal Lab Results - Last 24 Hours (Table) 03/19/18 03/19/18 Range/Units 13:28 13:28 D-Dimer 0.72 H (<0.60) mg/L FEU Glucose 161 H (74-99) mg/dL Assessment and Plan Plan: -Chest pain: We'll rule out acute coronary syndromes. Patient shortness of breath is not clearly explained patient may benefit from cardiac catheterization. -Shortness of breath: Etiology is not clear patient does have minimal asthma exacerbation given IV steroids and inhalational treatments obtain an ABG pulmonary consultation. Patient does have sleep apnea as well -Sleep apnea uses CPAP machine at home -Rule out pulmonary embolism -Gastroesophageal reflux disease -History of PE in the past -Hypothyroidism -Hypertension -Hyperlipidemia For above-mentioned chronic medical problems patient will be resumed and continued on appropriate home medications
[2018-03-19] MEDS: IPRATROPIUM-ALBUTEROL 3 ML NEB INHALATION SCH (18:13)
[2018-03-19] MEDS: ALPRAZolam 0.5 MG TAB PO PRN ×2 (18:41→23:02)
[2018-03-19 20:05] LABS: Creatine Kinase 36 U/L (30-135)
[2018-03-19 20:18] LABS: Creatine Kinase MB 0.5 ng/mL (0.0-2.4); Troponin I <0.012 ng/mL (0.000-0.034)
[2018-03-19] MEDS: hydrALAZINE HCL 50 MG TAB PO SCH (20:38)
[2018-03-19] MEDS: ATORVASTATIN 20 MG TAB PO SCH (20:38)
[2018-03-19] MEDS: cloNIDine HCL 0.1 MG TAB PO SCH (20:38)
[2018-03-19 20:54] LABS: ABG Base Excess 3.2 mmol/L; ABG HCO3 27 mmol/L (21-25); ABG Oxygen Saturation 96.3 % (94-97); ABG PCO2 37 mmHg (35-45); ABG PH 7.47 (7.35-7.45); ABG PO2 77 mmHg (83-108); ABG TCO2 28 mmol/L (19-24)
[2018-03-19] MEDS: PANTOPRAZOLE 40 MG TABLET PO SCH (22:57)
[2018-03-19] MEDS: METOCLOPRAMIDE 10 MG TAB PO SCH (22:57)
[2018-03-20] MEDS: methylPREDNISolone SOD SUCCI 125 MG/2 ML VIAL IV SCH ×5 (01:06→23:19)
[2018-03-20 01:29] LABS: Cholesterol 139 mg/dL (<200); HDL Cholesterol 47 mg/dL (40-60); LDL Cholesterol,Calculated 67 mg/dL (0-99); Triglycerides 125 mg/dL (<150)
[2018-03-20 01:41] LABS: Creatine Kinase 35 U/L (30-135)
[2018-03-20 01:54] LABS: Creatine Kinase MB 0.5 ng/mL (0.0-2.4); Troponin I <0.012 ng/mL (0.000-0.034)
[2018-03-20] MEDS: LEVOTHYROXINE 112 MCG TAB PO SCH ×2 (05:01→09:10)
[2018-03-20] MEDS: IPRATROPIUM-ALBUTEROL 3 ML NEB INHALATION SCH ×4 (07:01→20:12)
[2018-03-20] MEDS ORDERED: ASPIRIN 325 MG TAB PO STA (08:23)
[2018-03-20] MEDS ORDERED: SODIUM CHLORIDE 0.9% 1,000 ML in EMPTY BAG 1 BAG IV ONE (08:23)
[2018-03-20] MEDS: INSULIN ASPART 100 UNIT/ML 1 ML 10 ML VIAL SQ SCH ×4 (08:46→20:57)
[2018-03-20] MEDS: METOCLOPRAMIDE 10 MG TAB PO SCH ×3 (09:10→19:38)
[2018-03-20] MEDS: hydrALAZINE HCL 50 MG TAB PO SCH (09:10)
[2018-03-20] MEDS: POTASSIUM CHLORIDE ER 20 MEQ TAB.ER PO SCH (09:10)
[2018-03-20] MEDS: PANTOPRAZOLE 40 MG TABLET PO SCH ×2 (09:10→19:38)
[2018-03-20] MEDS: CLOPIDOGREL 75 MG TAB PO SCH (09:10)
[2018-03-20] MEDS: LOSARTAN 50 MG TAB PO SCH (09:11)
[2018-03-20] MEDS: amLODIPine 10 MG TAB PO SCH (09:11)
[2018-03-20] MEDS: cloNIDine HCL 0.1 MG TAB PO SCH ×2 (09:11→19:38)
[2018-03-20] MEDS: ATENOLOL 25 MG TAB PO SCH (09:11)
[2018-03-20] MEDS: ALPRAZolam 0.5 MG TAB PO PRN ×2 (09:53→20:58)
--- NOTE | 2018-03-20 10:18 | P.CRDCN ---
History of Present Illness History of present illness: Mrs. Franco is seen and examined sitting up in bed. Past medical history significant for COPD, hypertension, dyslipidemia, gastroesophageal reflux disease, obstructive sleep apnea and former nicotine use. She follows with Dr. Rudolph in the office. We have been asked to see her in consultation for symptoms of chest pain and shortness of breath. She states yesterday her and went out to eat. After eating she was preparing to walk to the car and she felt so short of breath that she needed to sit and rest before walking. She then started developing a heavy pressure sensation in the mid-sternal region described as an elephant sitting on her chest. She finally was able to walk to the car and came to ED for evaluation. She states she has been feeling increasingly short of breath for the last few weeks. She saw Dr. Rudolph in the office and he thought she may need a heart cath to further evaluate but wanted her evaluated by her security systems manager Dr. Lili rowan. She did she him and was evaluated. He recommended her proceeding with cath as well and thought her symptoms were more related to heart rather than lungs. Office notes reviewed. She is currently chest pain free with ongoing shortness of breath at rest. Blood pressure on arrival 206/84. EKG reveals sinus mechanism with minimal ST depression in lateral leads. Chest x-ray reveals borderline cardiomegaly with chronic changes possible bronchitis or asthma with no acute cardiopulmonary process. CTA borderline mildly enlarged heart with small pericardial effusion and coronary vessel calcifications noted. No definite evidence of PE. Laboratory data reviewed, hemoglobin 14, platelets 288, d-dimer 0.72, sodium 140 , potassium 3.8, magnesium 1.8, creatinine 0.91, cardiac enzymes negative 3, proBNP 189, ABG: PH 7.47, pO2 77, bicarb 27. Lipid panel: LDL 67, HDL 47, triglycerides 125 total cholesterol 139. Current cardiac medications include hydralazine 50 mg 3 times a day, clonidine 0.3 mg twice a day, amlodipine 10 mg daily, simvastatin 40 mg daily, potassium supplementation 20 daily, losartan 100 mg daily, Lasix 40 mg daily and atenolol 25 mg daily. She also takes Xanax, Ventolin, Synthroid, Reglan and Protonix. Most recent echocardiogram performed in the office reveals preserved left ventricular systolic function. Review of Systems At the time of my exam: CONSTITUTIONAL: Denies fever. Denies chills. EYES: Denies blurred vision. Denies vision changes. Denies eye pain. EARS, NOSE, MOUTH & THROAT: Denies headache. Denies sore throat. Denies ear pain. CARDIOVASCULAR: Denies chest pain. Complains of shortness of breath. Denies orthopnea. Denies PND. Denies palpitations. RESPIRATORY: Denies cough. GASTROINTESTINAL: Denies abdominal pain. Denies diarrhea. Denies constipation. Denies nausea. Denies vomiting. MUSCULOSKELETAL: Denies myalgias. INTEGUMENTARY: Denies pruitis. Denies rash. NEUROLOGIC: Denies numbness. Denies tingling. Denies weakness. PSYCHIATRIC: Denies anxiety. Denies depression. ENDOCRINE: Denies fatigue. Denies weight change. Denies polydipsia. Denies polyurina. GENITOURINARY: Denies burning, hematuria or urgency with micturation. HEMATOLOGIC: Denies history of anemia. Denies bleeding. 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 DIVERTICULITIS,FIBROCYSTIC BREAST DISEASE,SLEEP APNEA-CAN'T SLEEP WITH MACHINE. varicose veins, jaundice/hepatitis age 7. 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 History of Any Multi-Drug Resistant Organisms: None Reported Past Surgical History: Bladder Surgery, Bowel Resection, Cholecystectomy, Hernia Repair, Hysterectomy, Joint Replacement, Orthopedic Surgery Additional Past Surgical History / Comment(s): LEFT KNEE REPLACED, PARTIAL THYROIDECTOMY,HIATAL HERNIA REPAIR 07/2013, ABDOMINAL HERNIA REPAIR,MULTIPLE SKIN LESIONS-PT STATED HAS HAS BASAL,SQUAMOUS AND MELANOMA SKIN CA ( NECK,RT UPPER & LOWER THIGH,LT ARM,RT ARM, face, back-melanoma)SKIN GRAFTS TO VINOD.LEGS- LT EAR-LT MIDDLE FINGER,ACHILLES TENDON surgery. RT OVARY 1 TUBE REMOVED, SIGMOID RESECTION D/T BOWEL OBSTRUCTION,RT LITLE FINGER AMP, Past Anesthesia/Blood Transfusion Reactions: Previous Problems w/ Anesthesia, Motion Sickness, Postoperative Nausea & Vomiting (PONV) Additional Past Anesthesia/Blood Transfusion Reaction / Comment(s): STATES "HAS HAD SWELLING TO FACE,HANDS,ARMS AND SKIN TURNS "BEET RED"WITH ANESTHESIA-with IV sedation. stgates no problems with last surgery at [facility] 01/2017-anesthesia records on chart Past Psychological History: Anxiety Smoking Status: Former smoker Past Alcohol Use History: None Reported Additional Past Alcohol Use History / Comment(s): STARTED SMOKING 1963 AND QUIT 1973 SMOKED 1 PPD Past Drug Use History: None Reported - Past Family History Mother Family Medical History: Diabetes Mellitus Additional Family Medical History / Comment(s): HEART PROBLEMS Sister(s) Family Medical History: Diabetes Mellitus, Myocardial Infarction ([place]) Additional Family Medical History / Comment(s): EMPHYSEMA Father Family Medical History: Cancer Additional Family Medical History / Comment(s): LUNG CA. Medications and Allergies Home Medications Medication Instructions Recorded Confirmed Type ALPRAZolam 0.5 mg PO Q4-6H PRN 07/01/14 03/19/18 History Albuterol Inhaler [Ventolin Hfa 2 puff INHALATION RT-Q4H PRN 07/01/14 03/19/18 History Inhaler] Albuterol Nebulized [Ventolin 1 applicate INHALATION QID PRN 07/01/14 03/19/18 History Nebulized] Atenolol 25 mg PO QAM 07/01/14 03/19/18 History Furosemide 40 mg PO QAM 07/01/14 03/19/18 History Levothyroxine Sodium [Synthroid] 112 mcg PO QAM 07/01/14 03/19/18 History Losartan Potassium 100 mg PO QAM 07/01/14 03/19/18 History Metoclopramide [Reglan] 10 mg PO TID 07/01/14 03/19/18 History Simvastatin 40 mg PO HS 07/01/14 03/19/18 History amLODIPine [Norvasc] 10 mg PO QAM 07/01/14 03/19/18 History cloNIDine HCL 0.3 mg PO BID 07/01/14 03/19/18 History Multivit-Min/Iron/Folic/Lutein 1 tab PO DAILY 03/15/16 03/19/18 History [Centrum Silver Women Tablet] hydrALAZINE HCL 50 mg PO TID 03/15/16 03/19/18 History Acetaminophen Tab [Tylenol Tab] 500 mg PO Q6H PRN 10/07/16 03/19/18 History L.acidoph,Paracasei, B.lactis 1 cap PO DAILY 10/07/16 03/19/18 History [Probiotic] Stool Softener 1 tab PO DAILY PRN 10/07/16 03/19/18 History Potassium Chloride [Klor-Con 10] 20 meq PO DAILY 05/07/17 03/19/18 History Pantoprazole Sodium [Protonix] 40 mg PO BID 03/19/18 03/19/18 History Allergies Allergy/AdvReac Type Severity Reaction Status Date / Time adhesive Allergy SKIN Verified 03/19/18 14:57 REDDENS & BLISTERS- PAPER TAPE OKAY azithromycin [From Zithromax] Allergy Nausea & Verified 03/19/18 14:57 Vomiting meperidine HCl [From Demerol] Allergy Nausea & Verified 03/19/18 14:57 Vomiting morphine Allergy Nausea & Verified 03/19/18 14:57 Vomiting Sulfa (Sulfonamide Allergy Nausea & Verified 03/19/18 14:57 Antibiotics) Vomiting aspirin AdvReac STOMACH Verified 03/19/18 14:57 HERRERA milk AdvReac Nausea-Gas,Bloating,Stomach Verified 03/19/18 14:57 upset anesthesia Allergy facial/arms/hands Uncoded 03/19/18 13:28 swelling,skin"turns beet red", nausea DISSOLVING SUTURES Allergy INFECTION Uncoded 03/19/18 13:28 Physical Exam Vitals: Vital Signs Temp Pulse Pulse Resp BP BP Pulse Ox 03/20/18 07:12 72 03/20/18 07:03 68 95 03/20/18 03:58 16 03/20/18 03:24 98.2 F 60 16 121/66 97 03/19/18 23:46 98.8 F 58 L 16 131/75 96 03/19/18 23:43 56 L 20 03/19/18 20:00 61 20 03/19/18 19:15 98.4 F 78 20 152/71 96 03/19/18 18:42 99.5 F 82 18 180/76 96 03/19/18 18:18 78 03/19/18 18:10 78 03/19/18 16:56 77 24 178/84 96 08/02/18 14:18 72 22 173/72 98 03/19/18 13:22 97.3 F L 60 18 206/84 96 Intake and Output 03/19/18 03/20/18 03/20/18 22:59 06:59 14:59 Other: Voiding Method Bedside Commode Bedside Commode # Voids 1 2 Weight 83 kg Blood pressure 144 7308 afebrile maintaining oxygen saturation on nasal cannula GENERAL: This is a 77-year-old female in no apparent distress at the time of my examination. HEENT: Head is atraumatic, normocephalic. Pupils are equal, round. Sclerae anicteric. Conjunctivae are clear. Mucous membranes of the mouth are moist. Neck is supple. There is no jugular venous distention. No carotid bruit is heard. LUNGS: Clear to auscultation no wheezes, rales or rhonchi. No chest wall tenderness is noted on palpation or with deep breathing. Diminished bilaterally. HEART: Regular rate and rhythm without murmurs, rubs or gallops. S1 and S2 heard. ABDOMEN: Soft, nontender. Bowel sounds are heard. No organomegaly noted. EXTREMITIES: No evidence of peripheral edema and no calf tenderness noted. VASCULAR: Radial and dorsalis pedis pulses palpated, no evidence of clubbing. NEUROLOGIC: Patient is awake, alert and oriented x3. Results 03/19/18 13:28 03/19/18 13:28 Cardiac Enzymes 03/19/18 03/19/18 03/19/18 Range/Units 13:28 13:28 19:23 AST 26 (14-36) U/L CK-MB (CK-2) 0.8 0.5 (0.0-2.4) ng/mL Troponin I <0.012 <0.012 (0.000-0.034) ng/mL 03/20/18 Range/Units 01:04 AST (14-36) U/L CK-MB (CK-2) 0.5 (0.0-2.4) ng/mL Troponin I <0.012 (0.000-0.034) ng/mL Coagulation 03/19/18 Range/Units 13:28 PT 9.7 (9.0-12.0) sec APTT 23.1 (22.0-30.0) sec Lipids 03/20/18 Range/Units 01:04 Triglycerides 125 (<150) mg/dL Cholesterol 139 (<200) mg/dL HDL Cholesterol 47 (40-60) mg/dL CBC 03/19/18 Range/Units 13:28 WBC 9.4 (3.8-10.6) k/uL RBC 4.72 (3.80-5.40) m/uL Hgb 14.0 (11.4-16.0) gm/dL Hct 43.0 (34.0-46.0) % Plt Count 288 (150-450) k/uL Comprehensive Metabolic Panel 03/19/18 Range/Units 13:28 Sodium 140 (137-145) mmol/L Potassium 3.8 (3.5-5.1) mmol/L Chloride 102 (98-107) mmol/L Carbon Dioxide 24 (22-30) mmol/L BUN 10 (7-17) mg/dL Creatinine 0.91 (0.52-1.04) mg/dL Glucose 161 H (74-99) mg/dL Calcium 9.9 (8.4-10.2) mg/dL AST 26 (14-36) U/L ALT 27 (9-52) U/L Alkaline Phosphatase 59 (38-126) U/L Total Protein 6.6 (6.3-8.2) g/dL Albumin 4.6 (3.5-5.0) g/dL Current Medications Generic Name Dose Route Start Last Admin Trade Name Freq PRN Reason Stop Dose Admin Acetaminophen 500 mg 03/19/18 16:31 Tylenol Tab PO Q6H PRN Pain Albuterol/Ipratropium 3 ml 03/19/18 17:23 03/19/18 18:08 Duoneb 0.5 Mg-3 Mg/3 Ml Soln INHALATION 3 ml RT-QID PRN Administration Shortness Of Breath Or Wheezing Albuterol/Ipratropium 3 ml 03/19/18 20:00 03/20/18 07:01 Duoneb 0.5 Mg-3 Mg/3 Ml Soln INHALATION 3 ml RT-QID KSENIA Administration Alprazolam 0.5 mg 03/19/18 16:31 03/19/18 23:02 Xanax PO 0.5 mg Q4H PRN Administration MODERATE Anxiety Alprazolam 0.5 mg 03/19/18 17:32 Xanax PO Q6H PRN MILD Anxiety Amlodipine Besylate 10 mg 03/20/18 09:00 Norvasc PO QAM KSENIA Atenolol 25 mg 03/20/18 09:00 Tenormin PO QAM KSENIA Atorvastatin Calcium 20 mg 03/19/18 21:00 03/19/18 20:38 Lipitor PO 20 mg HS KSENIA Administration Clonidine 0.3 mg 03/19/18 21:00 03/19/18 20:38 Catapres PO 0.3 mg BID KSENIA Administration Clopidogrel Bisulfate 75 mg 03/20/18 09:00 Plavix PO DAILY [facility] Hydralazine HCl 50 mg 03/19/18 22:00 03/19/18 20:38 Apresoline PO 50 mg TID [facility] Administration Insulin Aspart 0 unit 03/20/18 07:30 Novolog SQ ACHS [facility] Protocol Levothyroxine Sodium 112 mcg 03/20/18 06:30 03/20/18 05:01 Synthroid PO Not Given 0630 [facility] Losartan Potassium 100 mg 03/20/18 09:00 Cozaar PO QAM [facility] Methylprednisolone Sodium Succinate 60 mg 03/20/18 00:00 03/20/18 05:41 Solu-Medrol IV 60 mg Q6HR KSENIA Administration Metoclopramide HCl 10 mg 03/19/18 22:00 03/19/18 22:57 Reglan PO 10 mg TID [facility] Administration Naloxone HCl 0.2 mg 03/19/18 16:30 Narcan IV Q2M PRN Opioid Reversal Nitroglycerin 0.4 mg 03/19/18 16:33 Nitrostat SUBLINGUAL Q5M PRN Chest Pain Pantoprazole Sodium 40 mg 03/19/18 21:00 03/19/18 22:57 Protonix PO 40 mg BID [facility] Administration Potassium Chloride 20 meq 03/20/18 09:00 K-Dur 20 PO DAILY [facility] Intake and Output 03/19/18 03/20/18 03/20/18 22:59 06:59 14:59 Other: Voiding Method Bedside Commode Bedside Commode # Voids 1 2 Weight 83 kg 03/19/18 13:28 03/19/18 13:28 Assessment and Plan Assessment: ASSESSMENT Unstable angina, exertional chest pain and shortness of breath. Patient has been seen as an outpatient by Dr. Pearson and office notes of been reviewed. Hypertension, uncontrolled Dyslipidemia COPD Obstructive sleep apnea cannot tolerate BiPAP PLAN We recommend proceeding with cardiac catheterization. I have discussed the risks , benefits and alternative therapies for the above-mentioned procedure and for both sedation/analgesia as well as necessary blood product administration, if indicated, as they pertain to this patient. The patient has indicated understanding and acceptance of the risks and procedures discussed. Questions have been answered properly and she is agreeable to move forward with the above stated procedure. Obtain 2-D echocardiogram and Doppler study to assess cardiac structure and function. ProBNP has been added on this morning and is normal. Further recommendations to follow based upon clinical course. Thank you kindly for this consultation. The above impression and plan of care have been discussed and directed by the signing physician. Virgie Sandoval, nurse practitioner, acting as scribe for signing physician.
[2018-03-20] MEDS ORDERED: MIDAZOLAM 2 MG/2 ML VIAL ONE (10:27)
--- NOTE | 2018-03-20 10:27 | P.CNPUL ---
History of Present Illness Consult date: 03/20/18 Reason for consult: dyspnea History of present illness: This is a 77-year-old female patient who was hospitalized for evaluation of shortness of breath. This patient has been seen Dr. Pearson for more than a year regarding shortness of breath. Seems that her breathing has been progressively getting worse and she significantly got worse as of November 2017. The patient was seen in the office by Dr. Chamorro. The patient is an ex-smoker. She has approximate 50-ejni-rwpc smoking history. The patient has had series of 40 function tests in our office dating back as long as 2011. Back and the patient severe obstructive airway limitation when FEV1 as low as 45% of predicted. Subsequent spirometry was done 2016 showed an FEV1 of 50% of predicted and the most recent spirometry was done on 02/19/2018 showed an FEV1 of 56% of predicted with some reversibility post-bronchodilation in the order of 50% with a post-bronchodilators in FEV1 of 64%. Note that during the course of the treatment the patient has received several courses of prednisone taper to which she responded nicely. The patient was given diagnosis of COPD/asthma and the patient was given for rescue inhaler and albuterol solution and that she was using on an as-needed basis. She was not placed on any form of maintenance inhalers. Due to her ongoing shortness of breath, the patient was also referred to cardiology. The patient was supposed to have an outpatient cardiac catheterization by Dr. Corona. This did not get done as the patient got admitted to the hospital for worsening shortness of breath, chest discomfort, occasional pressure-like sensation over the chest and cough and wheeze. A CT angios the chest was done and it showed no evidence of any pulmonary embolism. There was a small posterior pericardial effusion. Some changes consistent with COPD. Otherwise no airspace disease. No collapse or pneumothorax. No atelectasis. No other major abnormalities seen on the CT of the chest. Her cardiac enzymes are negative. EKG showed sinus mechanism with rare PVCs. The patient was started on bronchodilators. The patient is also on IV Solu-Medrol she claims that she is less short of breath compared to yesterday. The cardiac catheterization will be done today by Dr. Capellan. Echo cardiogram and also be done to assess LV function. Review of Systems Constitutional: Denies chills, Denies fever Eyes: denies blurred vision, denies bulging eye, denies decreased vision Ears: deny: decreased hearing, ear discharge, earache, tinnitus Ears, nose, mouth and throat: Reports as per HPI Cardiovascular: Reports decreased exercise tolerance, Reports dyspnea on exertion, Reports shortness of breath Respiratory: Reports cough, Reports dyspnea, Reports wheezing Gastrointestinal: Denies abdominal pain, Denies diarrhea, Denies nausea, Denies vomiting Genitourinary: Denies dysuria, Denies hematuria Musculoskeletal: Reports as per HPI Musculoskeletal: absent: ankle pain, ankle stiffness, ankle swelling Integumentary: Denies pruritus, Denies rash Neurological: Reports as per HPI Psychiatric: Denies anxiety, Denies depression Endocrine: Reports as per HPI Hematologic/Lymphatic: Reports as per HPI Allergic/Immunologic: Reports as per HPI Past Medical History Past Medical History: Asthma, Cancer, COPD, GERD/Reflux, Hyperlipidemia, Hypertension, Osteoarthritis (OA), Pneumonia, Pulmonary Embolus (PE), Rheumatoid Arthritis (RA), Sleep Apnea/CPAP/BIPAP, Thyroid Disorder Additional Past Medical History / Comment(s): COPD/asthma, chronic cough, acid reflux, hypertension, hypothyroidism, previous history of hiatal hernia surgically repaired, history of basal cell carcinoma of the skin resected, history of melanoma of the skin involving the back, resected, history of diverticulosis/diverticulitis, history of fibrocystic disease, obstructive sleep apnea can sleep with the CPAP, varicose veins in lower extremities, questionable history of pulmonary embolism. Many years back, hyperlipidemia, carotid arthritis, hypothyroidism, osteoarthritis History of Any Multi-Drug Resistant Organisms: None Reported Past Surgical History: Bladder Surgery, Bowel Resection, Cholecystectomy, Hernia Repair, Hysterectomy, Joint Replacement, Orthopedic Surgery Additional Past Surgical History / Comment(s): LEFT KNEE REPLACED, PARTIAL THYROIDECTOMY,HIATAL HERNIA REPAIR 07/2013, ABDOMINAL HERNIA REPAIR,MULTIPLE SKIN LESIONS-PT STATED HAS HAS BASAL,SQUAMOUS AND MELANOMA SKIN CA ( NECK,RT UPPER & LOWER THIGH,LT ARM,RT ARM, face, back-melanoma)SKIN GRAFTS TO VINOD.LEGS- LT EAR-LT MIDDLE FINGER,ACHILLES TENDON surgery. RT OVARY 1 TUBE REMOVED, SIGMOID RESECTION D/T BOWEL OBSTRUCTION,RT LITLE FINGER AMP, Past Anesthesia/Blood Transfusion Reactions: Previous Problems w/ Anesthesia, Motion Sickness, Postoperative Nausea & Vomiting (PONV) Additional Past Anesthesia/Blood Transfusion Reaction / Comment(s): STATES "HAS HAD SWELLING TO FACE,HANDS,ARMS AND SKIN TURNS "BEET RED"WITH ANESTHESIA-with IV sedation. stgates no problems with last surgery at [facility] 01/2017-anesthesia records on chart Past Psychological History: Anxiety Smoking Status: Former smoker Past Alcohol Use History: None Reported Additional Past Alcohol Use History / Comment(s): STARTED SMOKING 1963 AND QUIT 1974 SMOKED 1 PPD Past Drug Use History: None Reported - Past Family History Mother Family Medical History: Diabetes Mellitus Additional Family Medical History / Comment(s): HEART PROBLEMS Sister(s) Family Medical History: Diabetes Mellitus, Myocardial Infarction ([place]) Additional Family Medical History / Comment(s): EMPHYSEMA Father Family Medical History: Cancer Additional Family Medical History / Comment(s): LUNG CA. Medications and Allergies Home Medications Medication Instructions Recorded Confirmed Type ALPRAZolam 0.5 mg PO Q4-6H PRN 07/01/14 03/19/18 History Albuterol Inhaler [Ventolin Hfa 2 puff INHALATION RT-Q4H PRN 07/01/14 03/19/18 History Inhaler] Albuterol Nebulized [Ventolin 1 applicate INHALATION QID PRN 07/01/14 03/19/18 History Nebulized] Atenolol 25 mg PO QAM 07/01/14 03/19/18 History Furosemide 40 mg PO QAM 07/01/14 03/19/18 History Levothyroxine Sodium [Synthroid] 112 mcg PO QAM 07/01/14 03/19/18 History Losartan Potassium 100 mg PO QAM 07/01/14 03/19/18 History Metoclopramide [Reglan] 10 mg PO TID 07/01/14 03/19/18 History Simvastatin 40 mg PO HS 07/01/14 03/19/18 History amLODIPine [Norvasc] 10 mg PO QAM 07/01/14 03/19/18 History cloNIDine HCL 0.3 mg PO BID 07/01/14 03/19/18 History Multivit-Min/Iron/Folic/Lutein 1 tab PO DAILY 03/15/16 03/19/18 History [Centrum Silver Women Tablet] hydrALAZINE HCL 50 mg PO TID 03/15/16 03/19/18 History Acetaminophen Tab [Tylenol Tab] 500 mg PO Q6H PRN 10/07/16 03/19/18 History L.acidoph,Paracasei, B.lactis 1 cap PO DAILY 10/07/16 03/19/18 History [Probiotic] Stool Softener 1 tab PO DAILY PRN 10/07/16 03/19/18 History Potassium Chloride [Klor-Con 10] 20 meq PO DAILY 05/07/17 03/19/18 History Pantoprazole Sodium [Protonix] 40 mg PO BID 03/19/18 03/19/18 History Allergies Allergy/AdvReac Type Severity Reaction Status Date / Time adhesive Allergy SKIN Verified 03/19/18 14:57 REDDENS & BLISTERS- PAPER TAPE OKAY azithromycin [From Zithromax] Allergy Nausea & Verified 03/19/18 14:57 Vomiting meperidine HCl [From Demerol] Allergy Nausea & Verified 03/19/18 14:57 Vomiting morphine Allergy Nausea & Verified 03/19/18 14:57 Vomiting Sulfa (Sulfonamide Allergy Nausea & Verified 03/19/18 14:57 Antibiotics) Vomiting aspirin AdvReac STOMACH Verified 03/19/18 14:57 HERRERA milk AdvReac Nausea-Gas,Bloating,Stomach Verified 03/19/18 14:57 upset anesthesia Allergy facial/arms/hands Uncoded 03/19/18 13:28 swelling,skin"turns beet red", nausea DISSOLVING SUTURES Allergy INFECTION Uncoded 03/19/18 13:28 Physical Exam Vitals: Vital Signs Temp Pulse Pulse Resp BP BP Pulse Ox 03/20/18 08:00 97.7 F 88 18 144/73 95 03/20/18 07:12 72 03/20/18 07:03 68 95 03/20/18 03:58 16 03/20/18 03:24 98.2 F 60 16 121/66 97 03/19/18 23:46 98.8 F 58 L 16 131/75 96 03/19/18 23:43 56 L 20 03/19/18 20:00 61 20 03/19/18 19:15 98.4 F 78 20 152/71 96 03/19/18 18:42 99.5 F 82 18 180/76 96 03/19/18 18:18 78 03/19/18 18:10 78 03/19/18 16:56 77 24 178/84 96 03/19/18 14:18 72 22 173/72 98 03/19/18 13:22 97.3 F L 60 18 206/84 96 Intake and Output 03/19/18 03/20/18 03/20/18 22:59 06:59 14:59 Other: Voiding Method Bedside Commode Bedside Commode # Voids 1 2 Weight 83 kg Gen. appearance the patient is calm and she is comfortable. She seems to be having mildly labored breathing even at rest. She is able to speak of. This is without any major difficulties. Head exam was generally normal. There was no scleral icterus or corneal arcus. Mucous membranes were moist. Neck was supple and without jugular venous distension, thyromegaly, or carotid bruits. Carotids were easily palpable bilaterally. There was no adenopathy. Lungs sounds are diminished bilaterally along with some prolongation of expiratory phase of breathing. There are expiratory wheezes bilaterally. Abdominal exam revealed normal bowel sounds. The abdomen was soft, non-tender, and without masses, organomegaly, or appreciable enlargement of the abdominal aorta. Examination of the extremities revealed easily palpable radial, femoral and pedal pulses. There was no cyanosis, clubbing or edema. The patient has varicose veins bilaterally. Examination of the skin revealed no evidence of significant rashes, suspicious appearing nevi or other concerning lesions. Neurologically the patient is awake and alert and there is no focal neurological deficits. Results - Laboratory Findings CBC and BMP: 03/19/18 13:28 03/19/18 13:28 ABG ABG pH 7.47 (7.35-7.45) H 03/19/18 20:49 ABG pCO2 37 mmHg (35-45) 03/19/18 20:49 ABG pO2 77 mmHg (83-108) L 03/19/18 20:49 ABG O2 Saturation 96.3 % (94-97) 03/19/18 20:49 PT/INR, D-dimer PT 9.7 sec (9.0-12.0) 03/19/18 13:28 INR 1.0 (<1.2) 03/19/18 13:28 D-Dimer 0.72 mg/L FEU (<0.60) H 03/19/18 13:28 Abnormal lab findings: Abnormal Labs 03/19/18 03/19/18 03/19/18 13:28 13:28 20:49 D-Dimer 0.72 H ABG pH 7.47 H ABG pO2 77 L ABG HCO3 27 H ABG Total CO2 28 H Glucose 161 H - Diagnostic Findings Chest x-ray: image reviewed CT scan - chest: image reviewed Assessment and Plan Plan: Assessment 1 shortness of breath without obvious signs of an obstructive lung which based on her previous spirometer analysis is a combination of COPD/asthma. The patient has moderate degree of obstructive airway limitation her spirometry with reversibility post-bronchodilation. She hasn't been utilizing any formal maintenance inhalers on outpatient basis. Currently she is on a combination of bronchodilators and steroids. She is improving. A cardiac catheterization and echocardiogram will be done to rule out any cardiac contribution to her chronic shortness of breath. CT angios the chest is negative for pulmonary embolism. 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 Would recommend outpatient maintenance treatment probably an inhaled corticosteroids form such as Breo Ellipta for her COPD/asthma condition. Continue systemic steroids and prednisone burst taper will be done at the time of discharge. Awaiting echocardiogram. Awaiting cardiac catheterization. We'll continue to follow.
[2018-03-20] MEDS ORDERED: LIDOCAINE 1% INJ 10MG/ML (20 ML MDV) ONE (10:28)
[2018-03-20 10:53] LABS: Calcium 9.5 mg/dL (8.4-10.2); Potassium 3.7 mmol/L (3.5-5.1)
[2018-03-20] MEDS ORDERED: LIDOCAINE 1% INJ 10MG/ML (20 ML MDV) IM ONE (11:00)
[2018-03-20] MEDS ORDERED: MIDAZOLAM 2 MG/2 ML VIAL IVP ONE ×2 (11:01→11:06)
--- NOTE | 2018-03-20 11:09 | ECHOF ---
Referral Reason:pericardial effusion MEASUREMENTS -------- HEIGHT: 170.2 cm WEIGHT: 82.5 kg BP: 121/66 IVSd: 1.0 cm (0.6 - 1.1) LVIDd: 5.4 cm (3.9 - 5.3) LVPWd: 1.2 cm (0.6 - 1.1) IVSs: 1.4 cm LVIDs: 2.7 cm LVPWs: 1.5 cm Ao Diam: 3.0 cm (2.0 - 3.7) LA Diam: 4.1 cm (2.7 - 3.8) MV E Nilesh: 0.44 m/s MV DecT: 238 ms MV A Nilesh: 0.93 m/s MV E/A Ratio: 0.47 RAP: 5.00 mmHg RVSP: 15.56 mmHg FINDINGS -------- Sinus rhythm. This was a techncally difficult study with suboptimal views, , Lumason utilized for enhancement of im ages. The left ventricular size is normal. There is mild concentric left ventricular hypertrophy. Overa ll left ventricular systolic function is low-normal with, an EF between 50 - 55 %. The right ventricle is normal in size. The left atrium is mildly dilated. The right atrial size is normal. 5.0mg OF Lumason UTLIZED: 2 OR MORE WALL SEGMENTS NOT VISUALIZED. The aortic valve was not well visualized. Mild mitral regurgitation is present. Mild tricuspid regurgitation present. Right ventricular systolic pressure is normal at < 35 mmHg. There is no evidence of pulmonary hypertension. The pulmonic valve was not well visualized. The aortic root size is normal. Echo free space represents a pericardial fat pad. CONCLUSIONS -------- 1. This was a techncally difficult study with suboptimal views, , Lumason utilized for enhancement of images. 2. The left ventricular size is normal. 3. There is mild concentric left ventricular hypertrophy. 4. Overall left ventricular systolic function is low-normal with, an EF between 50 - 55 %. 5. The right ventricle is normal in size. 6. The left atrium is mildly dilated. 7. The right atrial size is normal. 8. 5.0mg OF Lumason UTLIZED: 2 OR MORE WALL SEGMENTS NOT VISUALIZED. 9. The aortic valve was not well visualized. 10. Mild mitral regurgitation is present. 11. Mild tricuspid regurgitation present. 12. Right ventricular systolic pressure is normal at < 35 mmHg. 13. There is no evidence of pulmonary hypertension. 14. The pulmonic valve was not well visualized. 15. The aortic root size is normal. 16. Echo free space represents a pericardial fat pad. SENIOR [employer] ADMINISTRATOR: Gabbie Boston RDCS
[2018-03-20] MEDS ORDERED: RX INFO: IV CONTRAST WAS GIVEN 1 EACH MISC MISCELLANE PRN (11:21)
[2018-03-20] MEDS ORDERED: IOPAMIDOL-370 125ML BTL INJ ONE (11:23)
[2018-03-20] MEDS ORDERED: IV FLUID CONTINUATION 1,000 ML IV ONE (11:25)
[2018-03-20 12:15] LABS: Glucose,Whole Blood 156 mg/dL (75-99)
--- NOTE | 2018-03-20 14:11 | CC ---
CARDIAC CATHETERIZATION REPORT INDICATION: Unstable angina. This is a 77-year-old lady who follows with Dr. Rudolph, my associate, has been having exertion shortness of breath and yesterday came in with an episode of exertional shortness of breath and chest pressure. The patient was evaluated by Dr. Rudolph and apparently had a negative stress test. Subsequently had seen Dr. Pearson, who thought her symptoms were not explained by any underlying lung disease and advised her to undergo cardiac catheterization. Since being admitted to hospital, she ruled out for myocardial infarction and has remained symptom free. The patient was advised to undergo cardiac catheterization and had been explained of risks, benefits and alternatives. PROCEDURE NOTE: After obtaining informed consent, left heart catheterization and coronary angiogram and LV gram are performed via the right femoral artery using standard Timothy catheters. The patient tolerated the procedure well without any obvious immediate complications. A femoral angiogram was performed and Angio-Seal was deployed for hemostasis. FINDINGS: 1. HEMODYNAMICS: Left ventricular end-diastolic pressure is 14 mm. There is no significant gradient across aortic valve. 2. LEFT VENTRICULOGRAM: Left ventriculogram was performed in VALVERDE position and shows normal left ventricular size and systolic function with an ejection fraction of 60%. 3. ANGIOGRAPHIC DATA: 4. Left Main Coronary Artery: Left main coronary are artery appears calcified. It is a short vessel. Divides into left anterior descending coronary artery and circumflex coronary artery. Circumflex coronary artery and its branches are free of significant stenosis. LAD shows a mild atherosclerotic plaque in the proximal portion. Right coronary artery is a small nondominant vessel and is free of significant disease. CONCLUSIONS: 1. Mild nonobstructive coronary artery disease involving proximal LAD. 2. Normal LV function. PLAN: I reviewed angiographic data with the patient and told her that her shortness of breath is noncardiac in origin and her management is going to be in the form of risk factor modification. After the Angio-Seal was deployed and the nurses noticed that the patient had developed significant splitting of the skin in the groin area. That was prior to out obtaining vascular access and when the patient was prepped for the cath, she did not have any erythema or inflammation in the skin area. However, did not have any excoriation or inflammation prior to cath, but she seemed to have a very fragile skin and has developed splitting of the skin that extends across the groin. We are going to apply sterile dressing and have the wound care team get involved. Talking to the , she has a very fragile skin and the gets peeled off even when a Band-Aid is applied and taken off. I am going to have an opinion from a general surgeon to see if we need to apply any sutures. HARJIT / MPN: [id number] /
--- NOTE | 2018-03-20 14:43 | P.PN ---
Progress Note - Text Called by nurse to evaluate the patient post-procedure for a skin tear to the right groin. Pt is seen laying flat in bed eating chips. Wound approximately 8 cm in length measured by nursing staff. Bright red blood noted at wound base with no active bleeding appreciated. Pt denies pain at the site, no hemotoma felt. Findings reported to Dr. Conde and recommended evaluation per General Surgery for recommendation on possible suturing vs. wound care. We will await his recommendations.
--- NOTE | 2018-03-20 14:45 | P.GSCN ---
History of Present Illness Consult date: 03/20/18 Reason for Consult: Right groin skin tear History of present illness: Patient underwent current catheterization. While they were holding pressure the patient was noted to have a skin tear that is full-thickness just at the groin level. The patient is a history of very thin skin with frequent skin tears. She states that when have tried to suture her skin tears in the past it has been unsuccessful because of the lack of integrity of the skin. Denies pain. No significant bleeding. Review of Systems The patient denies any acute changes in vision or hearing, no dysphagia or odynophagia, no dysuria or hematuria, no headache, no runny nose, no rectal bleeding or melena, no unexplained weight loss Past Medical History Past Medical History: Asthma, Cancer, COPD, GERD/Reflux, Hyperlipidemia, Hypertension, Osteoarthritis (OA), Pneumonia, Pulmonary Embolus (PE), Rheumatoid Arthritis (RA), Sleep Apnea/CPAP/BIPAP, Thyroid Disorder Additional Past Medical History / Comment(s): COPD/asthma, chronic cough, acid reflux, hypertension, hypothyroidism, previous history of hiatal hernia surgically repaired, history of basal cell carcinoma of the skin resected, history of melanoma of the skin involving the back, resected, history of diverticulosis/diverticulitis, history of fibrocystic disease, obstructive sleep apnea can sleep with the CPAP, varicose veins in lower extremities, questionable history of pulmonary embolism. Many years back, hyperlipidemia, carotid arthritis, hypothyroidism, osteoarthritis History of Any Multi-Drug Resistant Organisms: None Reported Past Surgical History: Bladder Surgery, Bowel Resection, Cholecystectomy, Hernia Repair, Hysterectomy, Joint Replacement, Orthopedic Surgery Additional Past Surgical History / Comment(s): LEFT KNEE REPLACED, PARTIAL THYROIDECTOMY,HIATAL HERNIA REPAIR 07/2013, ABDOMINAL HERNIA REPAIR,MULTIPLE SKIN LESIONS-PT STATED HAS HAS BASAL,SQUAMOUS AND MELANOMA SKIN CA ( NECK,RT UPPER & LOWER THIGH,LT ARM,RT ARM, face, back-melanoma)SKIN GRAFTS TO VINOD.LEGS- LT EAR-LT MIDDLE FINGER,ACHILLES TENDON surgery. RT OVARY 1 TUBE REMOVED, SIGMOID RESECTION D/T BOWEL OBSTRUCTION,RT LITLE FINGER AMP, Past Anesthesia/Blood Transfusion Reactions: Previous Problems w/ Anesthesia, Motion Sickness, Postoperative Nausea & Vomiting (PONV) Additional Past Anesthesia/Blood Transfusion Reaction / Comm: STATES "HAS HAD SWELLING TO FACE,HANDS,ARMS AND SKIN TURNS "BEET RED"WITH ANESTHESIA-with IV sedation. stgates no problems with last surgery at [facility] 01/2017-anesthesia records on chart Past Psychological History: Anxiety Smoking Status: Former smoker Past Alcohol Use History: None Reported Additional Past Alcohol Use History / Comment(s): STARTED SMOKING 1963 AND QUIT 1974 SMOKED 1 PPD Past Drug Use History: None Reported - Past Family History Mother Family Medical History: Diabetes Mellitus Additional Family Medical History / Comment(s): HEART PROBLEMS Sister(s) Family Medical History: Diabetes Mellitus, Myocardial Infarction (DC) Additional Family Medical History / Comment(s): EMPHYSEMA Father Family Medical History: Cancer Additional Family Medical History / Comment(s): LUNG CA. Medications and Allergies Home Medications Medication Instructions Recorded Confirmed Type ALPRAZolam 0.5 mg PO Q4-6H PRN 07/01/14 03/19/18 History Albuterol Inhaler [Ventolin Hfa 2 puff INHALATION RT-Q4H PRN 07/01/14 03/19/18 History Inhaler] Albuterol Nebulized [Ventolin 1 applicate INHALATION QID PRN 07/01/14 03/19/18 History Nebulized] Atenolol 25 mg PO QAM 07/01/14 03/19/18 History Furosemide 40 mg PO QAM 07/01/14 03/19/18 History Levothyroxine Sodium [Synthroid] 112 mcg PO QAM 07/01/14 03/19/18 History Losartan Potassium 100 mg PO QAM 07/01/14 03/19/18 History Metoclopramide [Reglan] 10 mg PO TID 07/01/14 03/19/18 History Simvastatin 40 mg PO HS 07/01/14 03/19/18 History amLODIPine [Norvasc] 10 mg PO QAM 07/01/14 03/19/18 History cloNIDine HCL 0.3 mg PO BID 07/01/14 03/19/18 History Multivit-Min/Iron/Folic/Lutein 1 tab PO DAILY 03/15/16 03/19/18 History [Centrum Silver Women Tablet] hydrALAZINE HCL 50 mg PO TID 03/15/16 03/19/18 History Acetaminophen Tab [Tylenol Tab] 500 mg PO Q6H PRN 10/07/16 03/19/18 History L.acidoph,Paracasei, B.lactis 1 cap PO DAILY 10/07/16 03/19/18 History [Probiotic] Stool Softener 1 tab PO DAILY PRN 10/07/16 03/19/18 History Potassium Chloride [Klor-Con 10] 20 meq PO DAILY 05/07/17 03/19/18 History Pantoprazole Sodium [Protonix] 40 mg PO BID 03/19/18 03/19/18 History Allergies Allergy/AdvReac Type Severity Reaction Status Date / Time adhesive Allergy SKIN Verified 03/19/18 14:57 REDDENS & BLISTERS- PAPER TAPE OKAY azithromycin [From Zithromax] Allergy Nausea & Verified 03/19/18 14:57 Vomiting meperidine HCl [From Demerol] Allergy Nausea & Verified 03/19/18 14:57 Vomiting morphine Allergy Nausea & Verified 03/19/18 14:57 Vomiting Sulfa (Sulfonamide Allergy Nausea & Verified 03/19/18 14:57 Antibiotics) Vomiting aspirin AdvReac STOMACH Verified 03/19/18 14:57 HERRERA milk AdvReac Nausea-Gas,Bloating,Stomach Verified 03/19/18 14:57 upset anesthesia Allergy facial/arms/hands Uncoded 03/19/18 13:28 swelling,skin"turns beet red", nausea DISSOLVING SUTURES Allergy INFECTION Uncoded 03/19/18 13:28 Surgical - Exam Vital Signs Temp Pulse Resp BP Pulse Ox 97.3 F L 60 18 206/84 96 03/19/18 13:22 03/19/18 13:22 03/19/18 13:22 03/19/18 13:22 03/19/18 13:22 Physical exam: General: Well-developed, well-nourished HEENT: Normocephalic, sclerae nonicteric Abdomen: Nontender, nondistended Extremities: No edema, laceration right groin 5-6 cm with depth of approximately 8 mm, no bleeding, mild tenderness, no erythema, skin extremely thin Neuro: Alert and oriented Results - Labs 03/19/18 13:28 03/20/18 08:11 Abnormal Lab Results - Last 24 Hours (Table) 03/19/18 03/20/18 03/20/18 Range/Units 20:49 08:11 12:05 ABG pH 7.47 H (7.35-7.45) ABG pO2 77 L (83-108) mmHg ABG HCO3 27 H (21-25) mmol/L ABG Total CO2 28 H (19-24) mmol/L Glucose 191 H (74-99) mg/dL POC Glucose (mg/dL) 156 H (75-99) mg/dL Diabetes panel 03/20/18 03/20/18 Range/Units 01:04 08:11 Sodium 140 (137-145) mmol/L Potassium 3.7 (3.5-5.1) mmol/L Chloride 105 (98-107) mmol/L Carbon Dioxide 23 (22-30) mmol/L BUN 12 (7-17) mg/dL Creatinine 0.91 (0.52-1.04) mg/dL Glucose 191 H (74-99) mg/dL Calcium 9.5 (8.4-10.2) mg/dL Triglycerides 125 (<150) mg/dL HDL Cholesterol 47 (40-60) mg/dL Calcium panel 03/20/18 Range/Units 08:11 Calcium 9.5 (8.4-10.2) mg/dL Pituitary panel 03/20/18 Range/Units 08:11 Sodium 140 (137-145) mmol/L Potassium 3.7 (3.5-5.1) mmol/L Chloride 105 (98-107) mmol/L Carbon Dioxide 23 (22-30) mmol/L BUN 12 (7-17) mg/dL Creatinine 0.91 (0.52-1.04) mg/dL Glucose 191 H (74-99) mg/dL Calcium 9.5 (8.4-10.2) mg/dL Adrenal panel 03/20/18 Range/Units 08:11 Sodium 140 (137-145) mmol/L Potassium 3.7 (3.5-5.1) mmol/L Chloride 105 (98-107) mmol/L Carbon Dioxide 23 (22-30) mmol/L BUN 12 (7-17) mg/dL Creatinine 0.91 (0.52-1.04) mg/dL Glucose 191 H (74-99) mg/dL Calcium 9.5 (8.4-10.2) mg/dL Assessment and Plan (1) Open wound of right thigh Narrative/Plan: Options discussed with the patient and her family in detail. Closure in my opinion would require skin dia for the strength of a provide. She is anxious to have this wound left open with healing by secondary intention. She states that is how she has treated her skin tears in the past. Will start Aquacel silver rope to that area. Will follow. Current Visit: Yes Status: Acute Code(s): S71.101A - UNSPECIFIED OPEN WOUND , RIGHT THIGH, INITIAL ENCOUNTER SNOMED Code(s): 355393419
--- NOTE | 2018-03-20 14:50 | P.PN ---
Subjective Patient is admitted for shortness of breath and chest pressure like sensation patient on cardiac catheterization which did not show any significant coronary occlusive disease. Patient is still short of breath is wheezing on exam patient may have asthma exacerbation along with mild COPD competent. Patient may have restrictive lung disease as well. Patient was started on systemic steroids which will be continued. Patient remains hypoxemic and significantly short of breath with minimal exertion. Patient will be made inpatient. Constitutional: Denied any fatigue denied any fever. Cardio vascular: denied any chest pain, palpitations Gastrointestinal denied any nausea vomiting Pulmonary: As mentioned in HPI Neurologic denied any new focal deficits Objective - Vital Signs Vital signs: Vital Signs Temp 97.7 F 03/20/18 08:24 Pulse 88 03/20/18 08:24 Resp 16 03/20/18 11:45 BP 112/57 03/20/18 11:45 Pulse Ox 96 03/20/18 11:45 Intake & Output 03/19/18 03/20/18 03/20/18 18:59 06:59 18:59 Intake Total 100 Balance 100 Weight 83.007 kg 83 kg Intake: IV 100 Other: Voiding Method Bedside Commode Bedside Commode # Voids 2 - Exam PHYSICAL EXAMINATION: GENERAL: The patient is alert and oriented x3, not in any acute distress. Well developed, well nourished. HEENT: Pupils are round and equally reacting to light. EOMI. No scleral icterus. No conjunctival pallor. Normocephalic, atraumatic. No pharyngeal erythema. No thyromegaly. CARDIOVASCULAR: S1 and S2 present. No murmurs, rubs, or gallops. PULMONARY: Significant expiratory wheezing was appreciated ABDOMEN: Soft, nontender, nondistended, normoactive bowel sounds. No palpable organomegaly. MUSCULOSKELETAL: No joint swelling or deformity. EXTREMITIES: No cyanosis, clubbing, or pedal edema. NEUROLOGICAL: Gross neurological examination did not reveal any focal deficits. SKIN: No rashes. - Labs CBC & Chem 7: 03/19/18 13:28 03/20/18 08:11 Labs: Abnormal Lab Results - Last 24 Hours (Table) 03/19/18 03/20/18 03/20/18 Range/Units 20:49 08:11 12:05 ABG pH 7.47 H (7.35-7.45) ABG pO2 77 L (83-108) mmHg ABG HCO3 27 H (21-25) mmol/L ABG Total CO2 28 H (19-24) mmol/L Glucose 191 H (74-99) mg/dL POC Glucose (mg/dL) 156 H (75-99) mg/dL Assessment and Plan Plan: -Chest pain: Patient underwent cardiac catheterization which did not show any significant coronary atherosclerotic occlusive disease -Shortness of breath: Multifactorial from restrictive as well as obstructive lung disease is and patient is being treated for asthma exacerbation patient was evaluated by pulmonology. -Sleep apnea uses CPAP machine at home -Rule out pulmonary embolism -Gastroesophageal reflux disease -History of PE in the past -Hypothyroidism -Hypertension -Hyperlipidemia For above-mentioned chronic medical problems patient will be resumed and continued on appropriate home medications
[2018-03-20 16:03] LABS: Hemoglobin A1C 5.3 % (4.0-6.0)
[2018-03-20] MEDS: ACETAMINOPHEN TAB 500 MG TAB PO PRN (16:58)
[2018-03-20 17:36] LABS: Glucose,Whole Blood 174 mg/dL (75-99)
[2018-03-20] MEDS: ATORVASTATIN 20 MG TAB PO SCH (19:38)
[2018-03-20 20:51] LABS: Glucose,Whole Blood 280 mg/dL (75-99)
[2018-03-21] MEDS: methylPREDNISolone SOD SUCCI 125 MG/2 ML VIAL IV SCH ×3 (05:50→17:53)
[2018-03-21] MEDS: LEVOTHYROXINE 112 MCG TAB PO SCH (05:51)
[2018-03-21 07:44] LABS: Glucose,Whole Blood 198 mg/dL (75-99)
[2018-03-21] MEDS: CLOPIDOGREL 75 MG TAB PO SCH (08:35)
[2018-03-21] MEDS: LOSARTAN 50 MG TAB PO SCH (08:35)
[2018-03-21] MEDS: cloNIDine HCL 0.1 MG TAB PO SCH ×2 (08:35→22:00)
[2018-03-21] MEDS: IPRATROPIUM-ALBUTEROL 3 ML NEB INHALATION SCH ×4 (08:36→21:08)
[2018-03-21] MEDS: INSULIN ASPART 100 UNIT/ML 1 ML 10 ML VIAL SQ SCH ×4 (08:36→22:05)
[2018-03-21] MEDS: POTASSIUM CHLORIDE ER 20 MEQ TAB.ER PO SCH (08:36)
[2018-03-21] MEDS: amLODIPine 10 MG TAB PO SCH (08:36)
[2018-03-21] MEDS: PANTOPRAZOLE 40 MG TABLET PO SCH ×2 (08:36→22:04)
[2018-03-21] MEDS: ATENOLOL 25 MG TAB PO SCH (08:41)
[2018-03-21] MEDS: METOCLOPRAMIDE 10 MG TAB PO SCH ×3 (09:35→22:00)
--- NOTE | 2018-03-21 10:23 | P.PN ---
Subjective Progress Note Date: 03/21/18 Principal diagnosis: Groin wound Patient doing well today. No pain in the right groin. No significant drainage. She is afebrile. Objective - Vital Signs Vital signs: Vital Signs Temp 97.6 F 03/21/18 07:52 Pulse 84 03/21/18 08:36 Resp 14 03/21/18 08:00 BP 162/77 03/21/18 07:52 Pulse Ox 95 03/21/18 07:52 Intake & Output 03/20/18 03/21/18 03/21/18 18:59 06:59 18:59 Intake Total 100 200 Balance 100 200 Intake: IV 100 Oral 200 Other: Voiding Method Bedside Commode Bedside Commode Bedside Commode - Exam Abdomen: Soft, nondistended, right groin wound clean without erythema or significant tenderness - Labs CBC & Chem 7: 03/19/18 13:28 03/20/18 08:11 Labs: Abnormal Lab Results - Last 24 Hours (Table) 03/20/18 03/20/18 03/20/18 Range/Units 08:11 12:05 17:32 Glucose 191 H (74-99) mg/dL POC Glucose (mg/dL) 156 H 174 H (75-99) mg/dL 03/20/18 03/21/18 Range/Units 20:48 07:37 Glucose (74-99) mg/dL POC Glucose (mg/dL) 280 H 198 H (75-99) mg/dL Assessment and Plan (1) Open wound of right thigh Narrative/Plan: Continue local wound care. Make arrangements for homecare. Follow-up with myself as needed. Current Visit: Yes Status: Acute Code(s): S71.101A - UNSPECIFIED OPEN WOUND , RIGHT THIGH, INITIAL ENCOUNTER SNOMED Code(s): 852090995
[2018-03-21 12:07] LABS: Glucose,Whole Blood 256 mg/dL (75-99)
--- NOTE | 2018-03-21 13:29 | P.PN ---
Subjective Progress Note Date: 03/21/18 This is a 77-year-old female patient who was hospitalized for evaluation of shortness of breath. This patient has been seen Dr. Pearson for more than a year regarding shortness of breath. Seems that her breathing has been progressively getting worse and she significantly got worse as of November 2017. The patient was seen in the office by Dr. Chamorro. The patient is an ex-smoker. She has approximate 33-[id number]-bwle smoking history. The patient has had series of 40 function tests in our office dating back as long as 2011. Back and the patient severe obstructive airway limitation when FEV1 as low as 45% of predicted. Subsequent spirometry was done 2016 showed an FEV1 of 50% of predicted and the most recent spirometry was done on 02/19/2018 showed an FEV1 of 56% of predicted with some reversibility post-bronchodilation in the order of 50% with a post-bronchodilators in FEV1 of 64%. Note that during the course of the treatment the patient has received several courses of prednisone taper to which she responded nicely. The patient was given diagnosis of COPD/asthma and the patient was given for rescue inhaler and albuterol solution and that she was using on an as-needed basis. She was not placed on any form of maintenance inhalers. Due to her ongoing shortness of breath, the patient was also referred to cardiology. The patient was supposed to have an outpatient cardiac catheterization by Dr. Corona. This did not get done as the patient got admitted to the hospital for worsening shortness of breath, chest discomfort, occasional pressure-like sensation over the chest and cough and wheeze. A CT angios the chest was done and it showed no evidence of any pulmonary embolism. There was a small posterior pericardial effusion. Some changes consistent with COPD. Otherwise no airspace disease. No collapse or pneumothorax. No atelectasis. No other major abnormalities seen on the CT of the chest. Her cardiac enzymes are negative. EKG showed sinus mechanism with rare PVCs. The patient was started on bronchodilators. The patient is also on IV Solu-Medrol she claims that she is less short of breath compared to yesterday. The cardiac catheterization will be done today by Dr. Capellan. Echo cardiogram and also be done to assess LV function. On 03/21/2018 I'm seeing this patient for a follow-up. The patient underwent a cardiac catheterization that showed nonocclusive disease and the patient was found to have a normal LV. The Cardizem was also within normal limits. The patient had a skin break and site of the angiogram and she is eating local wound care at this point in time. No evidence of any acute bleeding and she has adequate pulses in lower extremities bilaterally. At the same time the patient is receiving bronchodilators and systemic steroids. She has responded nicely. She is less broken spastic and wheezy and this further supports my suspicion that she has underlying COPD/asthma that needs to be further managed on outpatient basis. She is feeling overall much better compared to yesterday. She is on IV Solu-Medrol. She is free of any chest pain. Objective - Vital Signs Vital signs: Vital Signs Temp 97.9 F 03/21/18 11:37 Pulse 79 03/21/18 12:00 Resp 14 03/21/18 12:00 BP 133/69 03/21/18 11:37 Pulse Ox 93 L 03/21/18 11:37 Intake & Output 03/20/18 03/21/18 03/21/18 18:59 06:59 18:59 Intake Total 100 200 Balance 100 200 Weight 83 kg Intake: IV 100 Oral 200 Other: Voiding Method Bedside Commode Bedside Commode Bedside Commode # Voids 2 - Exam Gen. appearance the patient is calm and she is comfortable. She seems to be having mildly labored breathing even at rest. She is able to speak of. This is without any major difficulties. Head exam was generally normal. There was no scleral icterus or corneal arcus. Mucous membranes were moist. Neck was supple and without jugular venous distension, thyromegaly, or carotid bruits. Carotids were easily palpable bilaterally. There was no adenopathy. Lungs sounds are diminished bilaterally along with some prolongation of expiratory phase of breathing. There are expiratory wheezes bilaterally. Abdominal exam revealed normal bowel sounds. The abdomen was soft, non-tender, and without masses, organomegaly, or appreciable enlargement of the abdominal aorta. Examination of the extremities revealed easily palpable radial, femoral and pedal pulses. There was no cyanosis, clubbing or edema. The patient has varicose veins bilaterally. Examination of the skin revealed no evidence of significant rashes, suspicious appearing nevi or other concerning lesions. The area of the cardiac catheterization is appropriately dressed and there is no evidence of any acute bleeding. Neurologically the patient is awake and alert and there is no focal neurological deficits. - Labs CBC & Chem 7: 03/19/18 13:28 03/20/18 08:11 Labs: Abnormal Lab Results - Last 24 Hours (Table) 03/20/18 03/20/18 03/21/18 Range/Units 17:32 20:48 07:37 POC Glucose (mg/dL) 174 H 280 H 198 H (75-99) mg/dL 03/21/18 Range/Units 12:04 POC Glucose (mg/dL) 256 H (75-99) mg/dL Assessment and Plan Plan: Assessment 1 shortness of breath without obvious signs of an obstructive lung which based on her previous spirometer analysis is a combination of COPD/asthma. The cardiac workup is negative and the cardiac catheterization showed nonocclusive disease. 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 Local wound care to the groin area at the site of the cardiac catheterization.
--- NOTE | 2018-03-21 13:34 | P.DS ---
Providers Date of admission: 03/20/18 13:44 Attending physician: Nita Arias Consults: 03/19/18 16:33 Consult Physician Urgent Consulting Provider: Hans Rudolph Consult Reason/Comments: chest pain w SOB Do you want consulting provider notified?: Yes 03/19/18 17:26 Consult Physician Routine Consulting Provider: Brennen Bose Consult Reason/Comments: SOB, unclear etiology Do you want consulting provider notified?: Yes 03/20/18 12:25 Consult Physician Routine Consulting Provider: Hunter Ragland Consult Reason/Comments: skin tear right groin Do you want consulting provider notified?: Yes Primary care physician: Ying Lili [facility] Course: Patient is admitted for shortness of breath and chest pressure like sensation patient on cardiac catheterization which did not show any significant coronary occlusive disease. Patient is still short of breath is wheezing on exam patient may have asthma exacerbation along with mild COPD competent. Patient may have restrictive lung disease as well. Patient was started on systemic steroids which will be continued. Patient remains hypoxemic and significantly short of breath with minimal exertion. Patient will be made inpatient. 03/21/2018 Patient wheezing completely resolved wanted to go home as today's is her birthday, patient will be discharged on weaning dose of steroids patient and she benefits from 1 more day of hospitalization acid patient uses patient will be discharged on steroid taper. Patient appears to have mostly COPD exacerbation patient has an injury to the right groin after cardiac catheterization for which patient will have local wound care. PHYSICAL EXAMINATION: GENERAL: The patient is alert and oriented x3, not in any acute distress. Well developed, well nourished. HEENT: Pupils are round and equally reacting to light. EOMI. No scleral icterus. No conjunctival pallor. Normocephalic, atraumatic. No pharyngeal erythema. No thyromegaly. CARDIOVASCULAR: S1 and S2 present. No murmurs, rubs, or gallops. PULMONARY: Chest is clear to auscultation, no wheezing or crackles. ABDOMEN: Soft, nontender, nondistended, normoactive bowel sounds. No palpable organomegaly. MUSCULOSKELETAL: No joint swelling or deformity. EXTREMITIES: No cyanosis, clubbing, or pedal edema. NEUROLOGICAL: Gross neurological examination did not reveal any focal deficits. SKIN: No rashes. Assessment and Plan Plan: -Chest pain: Patient underwent cardiac catheterization which did not show any significant coronary atherosclerotic occlusive disease -Shortness of breath: Multifactorial from restrictive as well as obstructive lung disease is and patient is being treated for asthma exacerbation patient was evaluated by pulmonology. Significant improvement in shortness of breath with the steroids. -Sleep apnea uses CPAP machine at home -Rule out pulmonary embolism -Gastroesophageal reflux disease -History of PE in the past -Hypothyroidism -Hypertension -Hyperlipidemia Patient Condition at Discharge: Fair Plan - Discharge Summary Discharge Rx Participant: Yes New Discharge Prescriptions: New Budesonide-Formot 160-4.5 Mcg [Symbicort 160-4.5 Mcg Inhaler] 2 puff INHALATION BID #1 inhaler predniSONE 10 mg PO DAILY #30 tab Tiotropium [place] [Spiriva] 1 cap INHALATION DAILY #1 device Continue Albuterol Nebulized [Ventolin Nebulized] 1 applicate INHALATION QID PRN PRN Reason: Shortness Of Breath Albuterol Inhaler [Ventolin Hfa Inhaler] 2 puff INHALATION RT-Q4H PRN PRN Reason: Shortness Of Breath amLODIPine [Norvasc] 10 mg PO QAM ALPRAZolam 0.5 mg PO Q4-6H PRN PRN Reason: Anxiety Atenolol 25 mg PO QAM Simvastatin 40 mg PO HS cloNIDine HCL 0.3 mg PO BID Levothyroxine Sodium [Synthroid] 112 mcg PO QAM Metoclopramide [Reglan] 10 mg PO TID Multivit-Min/Iron/Folic/Lutein [Centrum Silver Women Tablet] 1 tab PO DAILY Acetaminophen Tab [Tylenol] 500 mg PO Q6H PRN PRN Reason: Pain L.acidoph,Paracasei, B.lactis [Probiotic] 1 cap PO DAILY Stool Softener 1 tab PO DAILY PRN PRN Reason: Constipation Pantoprazole Sodium [Protonix] 40 mg PO BID Changed Losartan Potassium 50 mg PO QAM #0 Discontinued Furosemide 40 mg PO QAM hydrALAZINE HCL 50 mg PO TID Potassium Chloride [Klor-Con 10] 20 meq PO DAILY Discharge Medication List ALPRAZolam 0.5 mg PO Q4-6H PRN 07/01/14 [History] Albuterol Inhaler [Ventolin Hfa Inhaler] 2 puff INHALATION RT-Q4H PRN 07/01/14 [ History] Albuterol Nebulized [Ventolin Nebulized] 1 applicate INHALATION QID PRN [History] Atenolol 25 mg PO QAM 07/01/14 [History] Levothyroxine Sodium [Synthroid] 112 mcg PO QAM 07/01/14 [History] Metoclopramide [Reglan] 10 mg PO TID 07/01/14 [History] Simvastatin 40 mg PO HS 07/01/14 [History] amLODIPine [Norvasc] 10 mg PO QAM 07/01/14 [History] cloNIDine HCL 0.3 mg PO BID 07/01/14 [History] Multivit-Min/Iron/Folic/Lutein [Centrum Silver Women Tablet] 1 tab PO DAILY [History] Acetaminophen Tab [Tylenol] 500 mg PO Q6H PRN 10/07/16 [History] L.acidoph,Paracasei, B.lactis [Probiotic] 1 cap PO DAILY 10/07/16 [History] Stool Softener 1 tab PO DAILY PRN 10/07/16 [History] Pantoprazole Sodium [Protonix] 40 mg PO BID 03/19/18 [History] Budesonide-Formot 160-4.5 Mcg [Symbicort 160-4.5 Mcg Inhaler] 2 puff INHALATION BID #1 inhaler 03/21/18 [Rx] Losartan Potassium 50 mg PO QAM #0 03/21/18 [Rx] Tiotropium [place] [Spiriva] 1 cap INHALATION DAILY #1 device 03/21/18 [Rx] predniSONE 10 mg PO DAILY #30 tab 03/21/18 [Rx] Follow up Appointment(s)/Referral(s): Ying Pearson MD [Primary Care Provider] - 3 Days Hans Rudolph MD [STAFF PHYSICIAN] - 1 Week [facility], [NON-STAFF] - Activity/Diet/Wound Care/Special Instructions: Wound discharge orders: To right groin, apply aquacel silver rope lightly moistened with saline. Cover with dry gauze. Aqualcel silver should be changed every 2-3 days. Dry gauze should be changed every day. Discharge Disposition: HOME WITH HOME HEALTH SERVICES
[2018-03-21] MEDS ORDERED: BISACODYL 10 MG SUPP RECTAL STA (15:28)
[2018-03-21 17:13] LABS: Glucose,Whole Blood 184 mg/dL (75-99)
--- NOTE | 2018-03-21 20:30 | PN ---
PROGRESS NOTE This patient underwent cardiac catheterization yesterday. The patient was found to have a skin separation ulcerated skin in the right groin. Dr. Ragland has seen the patient in consultation. Conservative treatment is recommended. She has been having a little bit of wheezing, shortness of breath and so patient is going to stay in the hospital today. She denies any chest pain. There is evidence of a hematoma. Blood pressure is 149/75 mmHg. Heart is S1, S2. Lungs examination reveals a few scattered wheezes. We will continue the current medications and patient will be probably be discharged home tomorrow. MMODL / IJN: [id number] /
[2018-03-21 20:32] LABS: Glucose,Whole Blood 236 mg/dL (75-99)
[2018-03-21] MEDS: ATORVASTATIN 20 MG TAB PO SCH (21:59)
[2018-03-21] MEDS: ALPRAZolam 0.5 MG TAB PO PRN (22:00)
[2018-03-22] MEDS: methylPREDNISolone SOD SUCCI 125 MG/2 ML VIAL IV SCH ×2 (00:33→05:14)
[2018-03-22] MEDS: ACETAMINOPHEN TAB 500 MG TAB PO PRN (01:10)
[2018-03-22] MEDS: LEVOTHYROXINE 112 MCG TAB PO SCH (05:14)
[2018-03-22 07:09] LABS: Glucose,Whole Blood 191 mg/dL (75-99)
[2018-03-22 07:34] VITALS: RESP 16; TEMP 98.5
[2018-03-22] MEDS: IPRATROPIUM-ALBUTEROL 3 ML NEB INHALATION SCH ×2 (08:05→11:21)
[2018-03-22] MEDS: INSULIN ASPART 100 UNIT/ML 1 ML 10 ML VIAL SQ SCH (08:49)
[2018-03-22] MEDS: amLODIPine 10 MG TAB PO SCH (08:50)
[2018-03-22] MEDS: LOSARTAN 50 MG TAB PO SCH (08:50)
[2018-03-22] MEDS: cloNIDine HCL 0.1 MG TAB PO SCH (08:50)
[2018-03-22] MEDS: ATENOLOL 25 MG TAB PO SCH (08:50)
[2018-03-22] MEDS: METOCLOPRAMIDE 10 MG TAB PO SCH (08:50)
[2018-03-22] MEDS: POTASSIUM CHLORIDE ER 20 MEQ TAB.ER PO SCH (08:51)
[2018-03-22] MEDS: PANTOPRAZOLE 40 MG TABLET PO SCH (08:51)
[2018-03-22] MEDS: CLOPIDOGREL 75 MG TAB PO SCH (08:51)
--- NOTE | 2018-03-22 10:06 | P.PN ---
Subjective Progress Note Date: 03/22/18 Principal diagnosis: Groin wound Patient feels well today. Apparently she did not go home yesterday because of some shortness of breath issues. Denies pain. Objective - Vital Signs Vital signs: Vital Signs Temp 98.5 F 03/22/18 07:31 Pulse 84 03/22/18 08:15 Resp 16 03/22/18 08:00 BP 157/64 03/22/18 07:31 Pulse Ox 93 L 03/22/18 07:31 Intake & Output 03/21/18 03/22/18 03/22/18 18:59 06:59 18:59 Intake Total 240 236 Balance 240 236 Weight 83 kg 83 kg Intake: Oral 240 236 Other: Voiding Method Bedside Commode Bedside Commode Bedside Commode # Voids 2 2 - Exam Right groin wound clean, no erythema, minimal tenderness - Labs CBC & Chem 7: 03/19/18 13:28 03/20/18 08:11 Labs: Abnormal Lab Results - Last 24 Hours (Table) 03/21/18 03/21/18 03/21/18 Range/Units 12:04 17:11 20:27 POC Glucose (mg/dL) 256 H 184 H 236 H (75-99) mg/dL 03/22/18 Range/Units 07:04 POC Glucose (mg/dL) 191 H (75-99) mg/dL Assessment and Plan (1) Open wound of right thigh Narrative/Plan: Continue local wound care. Follow-up in the office as needed. Current Visit: Yes Status: Acute Code(s): S71.101A - UNSPECIFIED OPEN WOUND , RIGHT THIGH, INITIAL ENCOUNTER SNOMED Code(s): 100428831
[2018-03-22 11:32] VITALS: BP 149/72; PULSE 76
--- NOTE | 2018-03-22 12:48 | P.DS ---
Providers Date of admission: 03/20/18 13:44 Attending physician: Nita Arias Consults: 03/19/18 16:33 Consult Physician Urgent Consulting Provider: Hans Rudolph Consult Reason/Comments: chest pain w SOB Do you want consulting provider notified?: Yes 03/19/18 17:26 Consult Physician Routine Consulting Provider: Brennen Bose Consult Reason/Comments: SOB, unclear etiology Do you want consulting provider notified?: Yes 03/20/18 12:25 Consult Physician Routine Consulting Provider: Hunter Ragland Consult Reason/Comments: skin tear right groin Do you want consulting provider notified?: Yes Primary care physician: Ying Lili Layton Hospital Course: Please refer to my discharge summary from yesterday for further details. Patient up staying in the hospital yesterday as pulmonology recommended 1 more day of hospitalization. Pulmonology cleared her to be discharged today. PHYSICAL EXAMINATION: GENERAL: The patient is alert and oriented x3, not in any acute distress. Well developed, well nourished. HEENT: Pupils are round and equally reacting to light. EOMI. No scleral icterus. No conjunctival pallor. Normocephalic, atraumatic. No pharyngeal erythema. No thyromegaly. CARDIOVASCULAR: S1 and S2 present. No murmurs, rubs, or gallops. PULMONARY: Chest is clear to auscultation, no wheezing or crackles. ABDOMEN: Soft, nontender, nondistended, normoactive bowel sounds. No palpable organomegaly. MUSCULOSKELETAL: No joint swelling or deformity. EXTREMITIES: No cyanosis, clubbing, or pedal edema. NEUROLOGICAL: Gross neurological examination did not reveal any focal deficits. SKIN: No rashes. Please refer to my dictation of discharge summary from yesterday for further details Patient Condition at Discharge: Fair Plan - Discharge Summary Discharge Rx Participant: Yes New Discharge Prescriptions: New Budesonide-Formot 160-4.5 Mcg [Symbicort 160-4.5 Mcg Inhaler] 2 puff INHALATION BID #1 inhaler predniSONE 10 mg PO DAILY #30 tab Tiotropium Gipsy [Spiriva] 1 cap INHALATION DAILY #1 device Losartan [Cozaar] 100 mg PO QAM tab Continue Albuterol Nebulized [Ventolin Nebulized] 1 applicate INHALATION QID PRN PRN Reason: Shortness Of Breath Albuterol Inhaler [Ventolin Hfa Inhaler] 2 puff INHALATION RT-Q4H PRN PRN Reason: Shortness Of Breath amLODIPine [Norvasc] 10 mg PO QAM ALPRAZolam 0.5 mg PO Q4-6H PRN PRN Reason: Anxiety Atenolol 25 mg PO QAM Simvastatin 40 mg PO HS cloNIDine HCL 0.3 mg PO BID Levothyroxine Sodium [Synthroid] 112 mcg PO QAM Metoclopramide [Reglan] 10 mg PO TID Multivit-Min/Iron/Folic/Lutein [Centrum Silver Women Tablet] 1 tab PO DAILY Acetaminophen Tab [Tylenol] 500 mg PO Q6H PRN PRN Reason: Pain L.acidoph,Paracasei, B.lactis [Probiotic] 1 cap PO DAILY Stool Softener 1 tab PO DAILY PRN PRN Reason: Constipation Pantoprazole Sodium [Protonix] 40 mg PO BID Discontinued Losartan Potassium 100 mg PO QAM Furosemide 40 mg PO QAM hydrALAZINE HCL 50 mg PO TID Potassium Chloride [Klor-Con 10] 20 meq PO DAILY Discharge Medication List ALPRAZolam 0.5 mg PO Q4-6H PRN 07/01/14 [History] Albuterol Inhaler [Ventolin Hfa Inhaler] 2 puff INHALATION RT-Q4H PRN 07/01/14 [ History] Albuterol Nebulized [Ventolin Nebulized] 1 applicate INHALATION QID PRN [History] Atenolol 25 mg PO QAM 07/01/14 [History] Levothyroxine Sodium [Synthroid] 112 mcg PO QAM 07/01/14 [History] Metoclopramide [Reglan] 10 mg PO TID 07/01/14 [History] Simvastatin 40 mg PO HS 07/01/14 [History] amLODIPine [Norvasc] 10 mg PO QAM 07/01/14 [History] cloNIDine HCL 0.3 mg PO BID 07/01/14 [History] Multivit-Min/Iron/Folic/Lutein [Centrum Silver Women Tablet] 1 tab PO DAILY [History] Acetaminophen Tab [Tylenol] 500 mg PO Q6H PRN 10/07/16 [History] L.acidoph,Paracasei, B.lactis [Probiotic] 1 cap PO DAILY 10/07/16 [History] Stool Softener 1 tab PO DAILY PRN 10/07/16 [History] Pantoprazole Sodium [Protonix] 40 mg PO BID 03/19/18 [History] Budesonide-Formot 160-4.5 Mcg [Symbicort 160-4.5 Mcg Inhaler] 2 puff INHALATION BID #1 inhaler 03/21/18 [Rx] Tiotropium Gipsy [Spiriva] 1 cap INHALATION DAILY #1 device 03/21/18 [Rx] predniSONE 10 mg PO DAILY #30 tab 03/21/18 [Rx] Losartan [Cozaar] 100 mg PO QAM tab 03/22/18 [Rx] Follow up Appointment(s)/Referral(s): Ying Pearson MD [Primary Care Provider] - 3 Days Hans Rudolph MD [STAFF PHYSICIAN] - 1 Week [facility], [NON-STAFF] - Activity/Diet/Wound Care/Special Instructions: Wound discharge orders: To right groin, apply aquacel silver rope lightly moistened with saline. Cover with dry gauze. Aqualcel silver should be changed every 2-3 days. Dry gauze should be changed every day. Discharge Disposition: HOME WITH HOME HEALTH SERVICES
--- NOTE | 2018-03-22 13:02 | P.PN ---
Subjective Progress Note Date: 03/22/18 This is a 77-year-old female patient who was hospitalized for evaluation of shortness of breath. This patient has been seen Dr. Pearson for more than a year regarding shortness of breath. Seems that her breathing has been progressively getting worse and she significantly got worse as of November 2017. The patient was seen in the office by Dr. Chamorro. The patient is an ex-smoker. She has approximate 28-gxtl-mest smoking history. The patient has had series of 40 function tests in our office dating back as long as 2011. Back and the patient severe obstructive airway limitation when FEV1 as low as 45% of predicted. Subsequent spirometry was done 2016 showed an FEV1 of 50% of predicted and the most recent spirometry was done on 02/19/2018 showed an FEV1 of 56% of predicted with some reversibility post-bronchodilation in the order of 50% with a post-bronchodilators in FEV1 of 64%. Note that during the course of the treatment the patient has received several courses of prednisone taper to which she responded nicely. The patient was given diagnosis of COPD/asthma and the patient was given for rescue inhaler and albuterol solution and that she was using on an as-needed basis. She was not placed on any form of maintenance inhalers. Due to her ongoing shortness of breath, the patient was also referred to cardiology. The patient was supposed to have an outpatient cardiac catheterization by Dr. Corona. This did not get done as the patient got admitted to the hospital for worsening shortness of breath, chest discomfort, occasional pressure-like sensation over the chest and cough and wheeze. A CT angios the chest was done and it showed no evidence of any pulmonary embolism. There was a small posterior pericardial effusion. Some changes consistent with COPD. Otherwise no airspace disease. No collapse or pneumothorax. No atelectasis. No other major abnormalities seen on the CT of the chest. Her cardiac enzymes are negative. EKG showed sinus mechanism with rare PVCs. The patient was started on bronchodilators. The patient is also on IV Solu-Medrol she claims that she is less short of breath compared to yesterday. The cardiac catheterization will be done today by Dr. Capellan. Echo cardiogram and also be done to assess LV function. On 03/21/2018 I'm seeing this patient for a follow-up. The patient underwent a cardiac catheterization that showed nonocclusive disease and the patient was found to have a normal LV. The Cardizem was also within normal limits. The patient had a skin break and site of the angiogram and she is eating local wound care at this point in time. No evidence of any acute bleeding and she has adequate pulses in lower extremities bilaterally. At the same time the patient is receiving bronchodilators and systemic steroids. She has responded nicely. She is less broken spastic and wheezy and this further supports my suspicion that she has underlying COPD/asthma that needs to be further managed on outpatient basis. She is feeling overall much better compared to yesterday. She is on IV Solu-Medrol. She is free of any chest pain. On 03/22/2018 the patient is feeling much better and she is very comfortable with her breathing and her cough and wheezing and chest tightness has subsided and the patient has responded nicely to systemic steroids. Cardiac workup has been noted. Objective - Vital Signs Vital signs: Vital Signs Temp 98.5 F 03/22/18 11:30 Pulse 76 03/22/18 11:30 Resp 16 03/22/18 11:30 BP 149/72 03/22/18 11:30 Pulse Ox 92 L 03/22/18 11:30 Intake & Output 03/21/18 03/22/18 03/22/18 18:59 06:59 18:59 Intake Total 240 236 Balance 240 236 Weight 83 kg 83 kg Intake: Oral 240 236 Other: Voiding Method Bedside Commode Bedside Commode Bedside Commode # Voids 2 2 - Exam Gen. appearance the patient is calm and she is comfortable. She seems to be having mildly labored breathing even at rest. She is able to speak of. This is without any major difficulties. Head exam was generally normal. There was no scleral icterus or corneal arcus. Mucous membranes were moist. Neck was supple and without jugular venous distension, thyromegaly, or carotid bruits. Carotids were easily palpable bilaterally. There was no adenopathy. Lungs sounds are diminished bilaterally along with some prolongation of expiratory phase of breathing. There are expiratory wheezes bilaterally. Abdominal exam revealed normal bowel sounds. The abdomen was soft, non-tender, and without masses, organomegaly, or appreciable enlargement of the abdominal aorta. Examination of the extremities revealed easily palpable radial, femoral and pedal pulses. There was no cyanosis, clubbing or edema. The patient has varicose veins bilaterally. Examination of the skin revealed no evidence of significant rashes, suspicious appearing nevi or other concerning lesions. The area of the cardiac catheterization is appropriately dressed and there is no evidence of any acute bleeding. Neurologically the patient is awake and alert and there is no focal neurological deficits. - Labs CBC & Chem 7: 03/19/18 13:28 03/20/18 08:11 Labs: Abnormal Lab Results - Last 24 Hours (Table) 03/21/18 03/21/18 03/22/18 Range/Units 17:11 20:27 07:04 POC Glucose (mg/dL) 184 H 236 H 191 H (75-99) mg/dL Assessment and Plan Plan: Assessment 1 shortness of breath without obvious signs of an obstructive lung which based on her previous spirometer analysis is a combination of COPD/asthma. The cardiac workup is negative and the cardiac catheterization showed nonocclusive disease. Echocardiogram is within normal and the patient will need management of COPD/asthma on outpatient basis 2 hypertension 3 hypothyroidism 4 rheumatoid arthritis 5 obstructive sleep apnea nontolerant to CPAP therapy 6 history of skin cancer in the form of squamous cell carcinoma and basal cell carcinoma and melanoma, all resected 8 history of diverticular disease 9 acid reflux 10 remote history of pulmonary embolism, in a postoperative setting Plan Patient can be discharged home in a prednisone burst taper. She has an albuterol nebulizer at home pH should be following up in our office for further adjustments regarding maintenance of his COPD/asthma. Good for discharge from a pulmonary standpoint.
== END 2018-03-22 11:54 | disposition home health service (06) | DRG 191 ==
LOC: EC 13:18 → 3OBS 16:45 → OBSVTOIN 03-20 13:44 → 3SUR 03-20 19:04 → 3OBS 03-22 01:09
PROVIDERS: ADMIT Internal Medicine; ATTEND Internal Medicine
PROC: B2111ZZ Fluoroscopy of Multiple Coronary Arteries using Low Osmolar Contrast (ICD-10-PCS; 2018-03-20)
PROC: B2151ZZ Fluoroscopy of Left Heart using Low Osmolar Contrast (ICD-10-PCS; 2018-03-20)
PROC: 4A023N7 Measurement of Cardiac Sampling and Pressure, Left Heart, Percutaneous Approach (ICD-10-PCS; principal; 2018-03-20 10:30)
DX: J44.1 Chronic obstructive pulmonary disease with (acute) exacerbation (principal); I31.3 Pericardial effusion (noninflammatory); R07.9 Chest pain, unspecified; S71.111A Laceration without foreign body, right thigh, initial encounter; I11.9 Hypertensive heart disease without heart failure; M06.9 Rheumatoid arthritis, unspecified; E78.5 Hyperlipidemia, unspecified; F41.9 Anxiety disorder, unspecified; G47.33 Obstructive sleep apnea (adult) (pediatric); I49.3 Ventricular premature depolarization; K21.9 Gastro-esophageal reflux disease without esophagitis; N60.19 Diffuse cystic mastopathy of unspecified breast; R09.02 Hypoxemia; I83.90 Asymptomatic varicose veins of unspecified lower extremity; K44.9 Diaphragmatic hernia without obstruction or gangrene; K57.90 Diverticulosis of intestine, part unspecified, without perforation or abscess without bleeding; R73.9 Hyperglycemia, unspecified; E89.0 Postprocedural hypothyroidism; M19.90 Unspecified osteoarthritis, unspecified site; Z79.899 Other long term (current) drug therapy; Z79.890 Hormone replacement therapy; Z90.710 Acquired absence of both cervix and uterus; Z85.820 Personal history of malignant melanoma of skin; Z86.711 Personal history of pulmonary embolism; Z87.891 Personal history of nicotine dependence; Z87.01 Personal history of pneumonia (recurrent); Z87.898 Personal history of other specified conditions; Z88.6 Allergy status to analgesic agent; Z88.1 Allergy status to other antibiotic agents; Z88.5 Allergy status to narcotic agent; Z88.2 Allergy status to sulfonamides; Z88.8 Allergy status to other drugs, medicaments and biological substances; Z91.018 Allergy to other foods; Z91.048 Other nonmedicinal substance allergy status; Z90.49 Acquired absence of other specified parts of digestive tract; Z96.652 Presence of left artificial knee joint; Z83.3 Family history of diabetes mellitus; Z82.5 Family history of asthma and other chronic lower respiratory diseases; Z80.1 Family history of malignant neoplasm of trachea, bronchus and lung; Z82.49 Family history of ischemic heart disease and other diseases of the circulatory system; X58.XXXA Exposure to other specified factors, initial encounter; Y92.239 Unspecified place in hospital as the place of occurrence of the external cause
CPT/HCPCS: 36415; 36600; 71046; 71275; 80048; 80053; 80061; 82550; 82553; 82805; 83036; 83735; 83880; 84484; 85025; 85379; 85610; 85730; 93005; 93306; 93458; 94640; 94760; 99285

== ENCOUNTER → 2018-06-24 | Outpatient (CLI) | payer MEDICARE ==
--- NOTE | 2018-06-30 20:28 | ENG ---
ELECTRONYSTAGMOGRAM REPORT SOURCE OF CONSULT: 06/24/2018. ATTENDING PHYSICIAN: Dr. Jim Marin. VNG INDICATIONS: 78-year-old female with vertigo, lightheadedness, dizziness and imbalance began 5-6 weeks ago associated with a sinus infection. Dizziness is gradual, improving with intermittent vertigo occurring every 4-5 days lasting for 15 minutes at a time. Multiple positions can trigger the vertigo. She has difficulty with hearing bilaterally and wears hearing aids and has tendinitis bilaterally of a steady nature. Denies any pain fullness or pressure in the ears. VNG FINDINGS: Saccades shows unremarkable peak velocities, accuracy and latencies. Gaze with fixation shows no nystagmus when any of the directions of gaze including centrally with vision denied. Tracking is well performed. No break-ups. Optokinetic nystagmus that slower speeds shows no asymmetry. Static position testing was done in 4 different positions with the eyes open and with vision denied and was no nystagmus. Patient could not perform Aimee-Hallpike maneuvers due to back condition. Caloric testing shows a bilateral caloric weakness. IMPRESSIONS: 1. Bilateral caloric weakness precludes any determination of vestibulopathy. Bilateral caloric weakness is unusual, but another test, such as the head thrust test or if available, active and passive rotation testing is required to confirm presence of bilateral vestibular dysfunction. 2. Other features of this VNG are unremarkable. MMODL / IJN: [id number] /
== END | disposition home or self-care (01) ==
LOC: NEUROMAIN 08:51
PROVIDERS: ATTEND Otolaryngology
DX: R42 Dizziness and giddiness (principal)
CPT/HCPCS: 92537; 92540

== ENCOUNTER 2018-12-18 11:51 | Day surgery (SDC) | payer MEDICARE ==
[2018-12-16 16:15] VITALS: BMI 28.1
[~2018-12-18 11:51] MED LIST changes: -DEXAMETHASONE SOD PHOSPHATE 10 MG/ML 1 ML VIAL IV ONE; -HEPARIN SODIUM,PORCINE 5,000 UNIT/ML 1 ML VIAL SQ ONE; -MIDAZOLAM 2 MG/2 ML VIAL IV PRN; -ONDANSETRON 4 MG/2 ML VIAL IVP ONE; -Pre Op ABX Message 1 EACH MISC MISCELLANE ONE
[2018-12-18 13:13] VITALS: RESP 16; TEMP 97.5
[2018-12-18] MEDS ORDERED: PROPOFOL 10 MG/ML 20 ML VIAL IV ONE (14:21)
--- NOTE | 2018-12-18 14:49 | P.PCN ---
Date of Procedure: 12/18/18 Procedure(s) Performed: BRIEF HISTORY: Patient is a 78-year-old pleasant female, scheduled for an elective colonoscopy as a part of value should of chronic diarrhea for the last 1 month duration. She is been having bowel movements attempted to 15 mm was to watery in consistency. No blood or mucus in the stool. She is been on Lomotil 2 tablets 4 times daily with no help. Stool cultures and C. diff toxin was negative. PROCEDURE PERFORMED: Colonoscopy with random biopsies. PREOPERATIVE DIAGNOSIS: Chronic diarrhea 1 month duration. IV sedation per Anesthesia. PROCEDURE: After informed consent was obtained, the patient, was brought into the endoscopy unit. IV sedation was administered by Anesthesia under continuous monitoring. Digital rectal examination was normal. Initially the Olympus CF-160 flexible video colonoscope was then inserted in the rectum, gradually advanced into the cecum without any difficulty. Careful examination was performed as the scope was gradually being withdrawn. Ileocecal valve and the appendiceal orifice were visualized and appeared normal. Prep was excellent. Mucosa of the cecum, ascending colon, transverse colon, descending colon, sigmoid colon, and rectum appeared normal. Random biopsies were done from the ascending and descending colon to rule out microscopic/collagenous colitis. Moderate left sided diverticulosis seen. Retroflexion was performed in the rectum and no lesions were seen. The patient tolerated the procedure well. IMPRESSION: Normal-appearing colon from rectum to cecum with no evidence of colitis or colorectal neoplasia Moderate diverticulosis . RECOMMENDATIONS: Findings of this examination were discussed with the patient as well as her family. She was advised to follow with the biopsy results. She'll be seen in office in one to 2 weeks..
[2018-12-18 15:06] VITALS: BP 169/67; PULSE 71
== END 2018-12-18 15:15 | disposition home or self-care (01) ==
LOC: ORWHC2ENDO 11:51
PROVIDERS: ATTEND Internal Medicine Gastroenterology
DX: K52.839 Microscopic colitis, unspecified (principal); K57.30 Diverticulosis of large intestine without perforation or abscess without bleeding; M06.9 Rheumatoid arthritis, unspecified; G47.33 Obstructive sleep apnea (adult) (pediatric); I10 Essential (primary) hypertension; E78.5 Hyperlipidemia, unspecified; J44.9 Chronic obstructive pulmonary disease, unspecified; Z99.89 Dependence on other enabling machines and devices; K21.9 Gastro-esophageal reflux disease without esophagitis; Z88.6 Allergy status to analgesic agent; Z79.899 Other long term (current) drug therapy; Z91.048 Other nonmedicinal substance allergy status; Z88.5 Allergy status to narcotic agent; Z88.1 Allergy status to other antibiotic agents; Z86.718 Personal history of other venous thrombosis and embolism; Z86.711 Personal history of pulmonary embolism; Z79.890 Hormone replacement therapy
CPT/HCPCS: 88305; 45380; J2704

== ENCOUNTER → 2020-02-09 | Outpatient (CLI) | payer MEDICARE ==
[2020-02-09 08:55] LABS: Basophils # (A) 0.1 k/uL (0-0.2); Basophils % (A) 1 %; Eosinophils # (A) 0.2 k/uL (0-0.7); Eosinophils % (A) 3 %; HCT 43.3 % (34.0-46.0); HGB 13.2 gm/dL (11.4-16.0); Hypochromasia Slight; Lymphocytes # (A) 1.9 k/uL (1.0-4.8); Lymphocytes % (A) 24 %; MCH 29.4 pg (25.0-35.0); MCHC 30.4 g/dL (31.0-37.0); MCV 96.6 fL (80.0-100.0); Mean Platelet Volume 7.2; Monocytes # (A) 0.4 k/uL (0-1.0); Monocytes % (A) 6 %; Neutrophils % (A) 64 %; Platelet Count 257 k/uL (150-450); RBC 4.48 m/uL (3.80-5.40); RDW 14.3 % (11.5-15.5); WBC 7.8 k/uL (3.8-10.6)
[2020-02-09 16:21] LABS: African American GFR (CKD) 61.6 (60.0-200.0); Albumin 4.3 g/dL (3.80-4.90); Albumin/Globulin Ratio 1.95 (1.60-3.17); Anion Gap 10.7 mmol/L (4.00-12.00); Calcium 9.4 mg/dL (8.7-10.3); Carbon Dioxide 28.3 mmol/L (21.6-31.8); Chol/HDL Ratio 3.3; Globulin 2.2 g/dL (1.6-3.3); LDL Cholesterol,Calculated 62.6 mg/dL (0.0-131.0); Non-African American GFR(CKD) 53.2 (60.0-200.0); Potassium 4.4 mmol/L (3.5-5.5); Total Bilirubin 0.4 mg/dL (0.3-1.2); Total Protein 6.5 g/dL (6.2-8.2); VLDL Calculation 38.4 mg/dL (5.00-40.00)
[2020-02-09 16:31] LABS: T4, Free (Free Thyroxine) 1.1 ng/dL (0.80-1.80)
== END | disposition home or self-care (01) ==
LOC: LABWHC1 08:14
PROVIDERS: ATTEND Internal Medicine
DX: Z00.00 Encounter for general adult medical examination without abnormal findings (principal)
CPT/HCPCS: 36415; 80053; 80061; 84439; 84443; 85025

== ENCOUNTER 2020-10-14 21:38 | Emergency (ER) | payer MEDICARE ==
[2020-10-14 21:50] VITALS: RESP 20; TEMP 98.7
--- NOTE | 2020-10-14 22:33 | ED ---
General Adult HPI - General Chief complaint: Anxiety Stated complaint: Anxiety Time Seen by Provider: 10/14/20 21:48 Source: patient, EMS Mode of arrival: EMS - History of Present Illness Initial comments: Dictation was produced using [employer] dictation software. please excuse any grammatical, word or spelling errors. This patient was cared for during a federal and state declared state of emergency secondary to Covid 19 Chief Complaint: 80-year-old female with past nuchal history of hypertension presents with high blood pressure and headache History of Present Illness: 80-year-old female she is brought to the emergency department by EMS. Patient states she is here for elevated blood pressure. She was found have elevated blood pressure by her primary care physician. He thought that perhaps it was due to anxiety. She was recently prescribed Zoloft and Xanax. She was told to monitor blood pressures. She was checking her blood pressure today with significant elevations with systolics measuring greater than 200. Worse that she had a headache starting this morning. She states it was severe however it's much better since being in the emergency department. Patient has a chest pain. No shortness of breath. No focal neurologic deficits. Patient has extensive history of hypertension she takes multiple antihypertensive medications. The ROS documented in this emergency department record has been reviewed and confirmed by me. Those systems with pertinent positive or negative responses have been documented in the HPI. All other systems are other negative and/or noncontributory. PHYSICAL EXAM: General Impression: Alert and oriented x3, not in acute distress HEENT: Normocephalic atraumatic, extra-ocular movements intact, pupils equal and reactive to light bilaterally, mucous membranes moist, no neck stiffness Cardiovascular: Heart regular rate and rhythm Chest: Able to complete full sentences, no retractions, no tachypnea, lungs clear to auscultation bilaterally Abdomen: abdomen soft, non-tender, non-distended, no organomegaly Musculoskeletal: Pulses present and equal in all extremities, no peripheral edema Motor: no focal deficits noted Neurological: CN II-XII grossly intact, no focal motor or sensory deficits noted Skin: Intact with no visualized rashes Psych: Normal affect and mood ED course: 80-year-old female presents with hypertension and headache. Vital Signs upon arrival shows blood pressure 179/77, rest of vital signs within acceptable limits. Patient is well-appearing at bedside. She does not have any neck stiffness. She does report that her headache is. However she does not appear to be in any acute distress. Laboratory evaluation obtained. CBC, coag panel, metabolic panel is unremarkable. Blood pressures are improved while in the emergency department. Computed tomography scan of the brain was obtained showing no acute processes. Chest x-rays negative. Patient is feeling well. Patient wants to be discharge. She denies any headache at this time. Patient is well-appearing at this time. She presents typical for her to get these mild headaches when her blood pressure is high. Patient is agreeable with discharge. Return parameters discussed. EKG interpretation: Ventricular rate 89, sinus rhythm, MD interval 140, QRS 92, QTC 493. No MD prolongation, no QTC prolongation, no ST or T-wave changes noted. EKG compared to 03/19/2018 showing no changes. Overall, this EKG is unrem arkable - Related Data Home Medications Medication Instructions Recorded Confirmed ALPRAZolam 0.5 mg PO Q4-6H PRN 07/01/14 12/18/18 Albuterol Inhaler (Mhu) [Ventolin 2 puff INHALATION RT-Q4H PRN 07/01/14 12/18/18 Hfa Inhaler (Mhu)] Albuterol Nebulized [Ventolin 1 applicate INHALATION QID PRN 07/01/14 12/18/18 Nebulized] Levothyroxine Sodium [Synthroid] 112 mcg PO QAM 07/01/14 12/18/18 Metoclopramide [Reglan] 10 mg PO BID 07/01/14 12/18/18 Simvastatin 40 mg PO HS 07/01/14 12/18/18 amLODIPine [Norvasc] 10 mg PO QAM 07/01/14 12/18/18 cloNIDine HCL 0.3 mg PO BID 07/01/14 12/18/18 Multivit-Min/Iron/Folic/Lutein 1 tab PO DAILY 03/15/16 12/16/18 [Centrum Silver Women Tablet] Acetaminophen Tab [Tylenol] 500 mg PO Q6H PRN 10/07/16 12/18/18 L.acidoph,Paracasei, B.lactis 1 cap PO DAILY 10/07/16 12/18/18 [Probiotic] Stool Softener 1 tab PO DAILY PRN 10/07/16 12/18/18 Pantoprazole Sodium [Protonix] 40 mg PO BID 03/19/18 12/18/18 Budesonide-Formot 160-4.5 Mcg 2 puff INHALATION BID PRN 12/16/18 12/18/18 [Symbicort 160-4.5 Mcg Inhaler] Furosemide [Lasix] 40 mg PO DAILY 12/16/18 12/18/18 Potassium Chloride ER [K-Dur 10] 20 meq PO BID 12/16/18 12/18/18 diphenhydrAMINE [Benadryl] 50 mg PO HS 12/16/18 12/18/18 Previous Rx's Medication Instructions Recorded Losartan [Cozaar] 100 mg PO QAM tab 03/22/18 Allergies Allergy/AdvReac Type Severity Reaction Status Date / Time adhesive Allergy SKIN Verified 10/14/20 21:50 REDDENS & BLISTERS- PAPER TAPE OKAY azithromycin [From Zithromax] Allergy Nausea & Verified 10/14/20 21:50 Vomiting meperidine HCl [From Demerol] Allergy Nausea & Verified 10/14/20 21:50 Vomiting morphine Allergy Nausea & Verified 10/14/20 21:50 Vomiting Sulfa (Sulfonamide Allergy Nausea & Verified 10/14/20 21:50 Antibiotics) Vomiting aspirin AdvReac STOMACH Verified 10/14/20 21:50 HERERRA anesthesia Allergy facial/arms/hands Uncoded 10/14/20 21:50 swelling,skin"turns beet red", nausea DISSOLVING SUTURES Allergy INFECTION Uncoded 10/14/20 21:50 Review of Systems ROS Statement: Those systems with pertinent positive or pertinent negative responses have been documented in the HPI. ROS Other: All systems not noted in ROS Statement are negative. Past Medical History Past Medical History: Asthma, Cancer, COPD, GERD/Reflux, Hyperlipidemia, Hypertension, Osteoarthritis (OA), Pneumonia, Pulmonary Embolus (PE), Rheumatoid Arthritis (RA), Sleep Apnea/CPAP/BIPAP, Thyroid Disorder Additional Past Medical History / Comment(s): COPD/asthma, chronic cough, hypothyroidism, history of basal cell carcinoma of the skin resected, history of melanoma of the skin involving the back, resected, history of diverticulosis/diverticulitis, history of fibrocystic disease, obstructive sleep apnea can sleep with the CPAP, varicose veins in lower extremities, hypothyroidism History of Any Multi-Drug Resistant Organisms: None Reported Past Surgical History: Bladder Surgery, Bowel Resection, Cholecystectomy, Heart Catheterization, Hernia Repair, Hysterectomy, Joint Replacement, Orthopedic Surgery Additional Past Surgical History / Comment(s): LEFT KNEE REPLACED, PARTIAL THYROIDECTOMY,HIATAL HERNIA REPAIR 07/2013, ABDOMINAL HERNIA REPAIR,MULTIPLE SKIN LESIONS-PT STATED HAS HAS BASAL,SQUAMOUS AND MELANOMA SKIN CA ( NECK,RT UPPER & LOWER THIGH,LT ARM,RT ARM, face, back-melanoma)SKIN GRAFTS TO VINOD.LEGS- LT EAR-LT MIDDLE FINGER,ACHILLES TENDON surgery. RT OVARY 1 TUBE REMOVED, SIGMOID RESECTION D/T BOWEL OBSTRUCTION,RT LITLE FINGER AMP, Past Anesthesia/Blood Transfusion Reactions: Previous Problems w/ Anesthesia, Motion Sickness, Postoperative Nausea & Vomiting (PONV) Additional Past Anesthesia/Blood Transfusion Reaction / Comment(s): STATES "HAS HAD SWELLING TO FACE,HANDS,ARMS AND SKIN TURNS "BEET RED"WITH ANESTHESIA-with IV sedation. states no problems with last surgery at [facility] 01/2017-anesthesia records on chart Past Psychological History: Anxiety Smoking Status: Never smoker Past Alcohol Use History: None Reported Past Drug Use History: None Reported - Past Family History Mother Family Medical History: Diabetes Mellitus Additional Family Medical History / Comment(s): HEART PROBLEMS Sister(s) Family Medical History: Diabetes Mellitus, Myocardial Infarction ([place]) Additional Family Medical History / Comment(s): EMPHYSEMA Father Family Medical History: Cancer Additional Family Medical History / Comment(s): LUNG CA. Course Vital Signs 10/14/20 10/14/20 10/14/20 21:43 21:51 23:02 Temperature 98.7 F Pulse Rate 95 91 88 Respiratory 20 20 20 Rate Blood Pressure 206/80 179/77 130/77 O2 Sat by Pulse 96 96 96 Oximetry Medical Decision Making - Lab Data Result diagrams: 10/14/20 22:36 10/14/20 22:36 Lab Results 10/14/20 10/14/20 10/14/20 Range/Units 22:36 22:36 22:36 WBC 12.3 H (3.8-10.6) k/uL RBC 4.59 (3.80-5.40) m/uL Hgb 13.9 (11.4-16.0) gm/dL Hct 42.2 (34.0-46.0) % MCV 92.0 (80.0-100.0) fL MCH 30.4 (25.0-35.0) pg MCHC 33.0 (31.0-37.0) g/dL RDW 14.9 (11.5-15.5) % Plt Count 230 (150-450) k/uL MPV 7.0 Neutrophils % 75 % Lymphocytes % 18 % Monocytes % 4 % Eosinophils % 2 % Basophils % 0 % Neutrophils # 9.3 H (1.3-7.7) k/uL Lymphocytes # 2.2 (1.0-4.8) k/uL Monocytes # 0.5 (0-1.0) k/uL Eosinophils # 0.2 (0-0.7) k/uL Basophils # 0.0 (0-0.2) k/uL PT 9.8 (9.0-12.0) sec INR 0.9 (<1.2) APTT 21.8 L (22.0-30.0) sec Sodium 141 (137-145) mmol/L Potassium 3.4 L (3.5-5.1) mmol/L Chloride 104 (98-107) mmol/L Carbon Dioxide 26 (22-30) mmol/L Anion Gap 11 mmol/L BUN 16 (7-17) mg/dL Creatinine 0.68 (0.52-1.04) mg/dL Est GFR (CKD-EPI)AfAm >90 (>60 ml/min/1.73 sqM) Est GFR (CKD-EPI)NonAf 82 (>60 ml/min/1.73 sqM) Glucose 144 H (74-99) mg/dL Calcium 9.1 (8.4-10.2) mg/dL Disposition Clinical Impression: Headache, Hypertension Disposition: HOME SELF-CARE Instructions (If sedation given, give patient instructions): Generalized Anxiety Disorder (ED), Hypertension (ED) Is patient prescribed a controlled substance at d/c from ED?: No Referrals: Yign Pearson MD [Primary Care Provider] - 1-2 days Time of Disposition: 23:16
--- NOTE | 2020-10-14 22:41 | XR ---
EXAMINATION TYPE: XR chest 1V portable DATE OF EXAM: 10/14/2020 COMPARISON: March 19, 2018 HISTORY: Chest pain TECHNIQUE: FINDINGS: Heart is enlarged. There is no heart failure. Thoracic aorta is atheromatous. There is no p leural effusion. There are no hilar masses. Bony thorax is intact. IMPRESSION: Cardiomegaly. No active cardiopulmonary disease. No change.
[2020-10-14 22:44] LABS: Basophils % (A) 0 %; Eosinophils # (A) 0.2 k/uL (0-0.7); Eosinophils % (A) 2 %; HCT 42.2 % (34.0-46.0); HGB 13.9 gm/dL (11.4-16.0); Lymphocytes # (A) 2.2 k/uL (1.0-4.8); Lymphocytes % (A) 18 %; MCH 30.4 pg (25.0-35.0); Monocytes # (A) 0.5 k/uL (0-1.0); Monocytes % (A) 4 %; Neutrophils # (A) 9.3 k/uL (1.3-7.7); Neutrophils % (A) 75 %; Platelet Count 230 k/uL (150-450); RBC 4.59 m/uL (3.80-5.40); RDW 14.9 % (11.5-15.5); WBC 12.3 k/uL (3.8-10.6)
--- NOTE | 2020-10-14 22:56 | CT ---
EXAMINATION TYPE: CT brain wo con DATE OF EXAM: 10/14/2020 COMPARISON: None HISTORY: HYPERTENSION CT DLP: 1133.4 mGycm Automated exposure control for dose reduction was used. There is mild cerebral atrophy. There is no mass effect nor midline shift. There is no sign of intrac ranial hemorrhage. There is some white matter hypodensity in the posterior temporal lobes bilaterally . The calvarium is intact. Skull base is intact. IMPRESSION: White matter hypodensity suggestive of some chronic small vessel ischemia in the posterior temporal l obes. Mild atrophy.
[2020-10-14 23:01] LABS: INR 0.9 (<1.2); Prothrombin Time 9.8 sec (9.0-12.0)
[2020-10-14 23:03] VITALS: BP 130/77; PULSE 88
[2020-10-14 23:04] LABS: African American GFR (CKD) >90 (>60 ml/min/1.73 sqM); Anion Gap 11 mmol/L; Blood Urea Nitrogen 16 mg/dL (7-17); Calcium 9.1 mg/dL (8.4-10.2); Carbon Dioxide 26 mmol/L (22-30); Chloride 104 mmol/L (98-107); Glucose 144 mg/dL (74-99); Non-African American GFR(CKD) 82 (>60 ml/min/1.73 sqM); Potassium 3.4 mmol/L (3.5-5.1); Sodium 141 mmol/L (137-145)
[2020-10-14 23:05] LABS: Partial Thromboplastin Time 21.8 sec (22.0-30.0)
== END 2020-10-14 23:30 | disposition home or self-care (01) ==
LOC: EC 21:38
DX: I10 Essential (primary) hypertension (principal); R51.9 Headache, unspecified; E78.5 Hyperlipidemia, unspecified; F41.9 Anxiety disorder, unspecified; G47.33 Obstructive sleep apnea (adult) (pediatric); J44.9 Chronic obstructive pulmonary disease, unspecified; K21.9 Gastro-esophageal reflux disease without esophagitis; Z79.51 Long term (current) use of inhaled steroids; Z79.899 Other long term (current) drug therapy
CPT/HCPCS: 36415; 70450; 71045; 80048; 85025; 85610; 85730; 93005; 99284

== ENCOUNTER 2020-10-18 18:35 | Inpatient (IN) | payer MEDICARE ==
[2020-10-18] MEDS ORDERED: ACETAMINOPHEN TAB 500 MG TAB PO STA (19:03)
[2020-10-18] MEDS ORDERED: hydrALAZINE HCL 20 MG/ML 1 ML VIAL IVP STA ×4 (19:04→21:17)
--- NOTE | 2020-10-18 19:15 | ED ---
General Adult HPI - General Chief complaint: Recheck/Abnormal Lab/Rx Stated complaint: High BP Time Seen by Provider: 10/18/20 18:35 Source: patient, RN notes reviewed, old records reviewed Mode of arrival: ambulatory Limitations: no limitations - History of Present Illness Initial comments: This is an 80-year-old female presents emergency Department complaining that her blood pressures elevated and she has headache. Patient states she was here 5 days ago because of same she had a CAT scan and was given something to relax and her blood pressure did come down. Patient states she wasn't given anything emergency department. I verified this on her old chart. Patient states she has headache but it's typical headache that she gets high blood pressure. Patient denies any numbness weakness. Patient denies chest pain difficulty breathing shortness of breath. Patient denies any fever chills or cough per patient denies any abdominal pain patient denies nausea vomiting diarrhea. Patient states she's excessively anxious because her just in August after 62 years of marriage. - Related Data Home Medications Medication Instructions Recorded Confirmed cloNIDine HCL 0.3 mg PO HS 07/01/14 10/18/20 Pantoprazole Sodium [Protonix] 40 mg PO BID 03/19/18 10/18/20 Furosemide [Lasix] 40 mg PO DAILY 12/16/18 10/18/20 Potassium Chloride ER [K-Dur 10] 10 meq PO BID 12/16/18 10/18/20 ALPRAZolam [Xanax] 0.25 mg PO BID PRN 10/18/20 10/18/20 Budesonide [Budesonide EC] 3 mg PO TID 10/18/20 10/18/20 Clotrimazole/Betameth Cream 1 applic TOPICAL BID 10/18/20 10/18/20 [Lotrisone] Colon Probiotic 1 tab PO DAILY 10/18/20 10/18/20 Echinacea 1,000 mg PO BID 10/18/20 10/18/20 Elderberry Fruit and Flower [Black 1 cap PO DAILY 10/18/20 10/18/20 Elderberry 575 mg Cap] Levothyroxine Sodium [Synthroid] 125 mcg PO DAILY 10/18/20 10/18/20 Losartan Potassium 100 mg PO DAILY 10/18/20 10/18/20 Sertraline [Zoloft] 25 mg PO HS 10/18/20 10/18/20 Simvastatin 40 mg PO DAILY 10/18/20 10/18/20 Turmeric Root Extract [Turmeric] 500 mg PO BID 10/18/20 10/18/20 amLODIPine [Norvasc] 10 mg PO HS 10/18/20 10/18/20 hydrALAZINE HCL [Apresoline] 25 mg PO TID 10/18/20 10/18/20 Allergies Allergy/AdvReac Type Severity Reaction Status Date / Time adhesive Allergy SKIN Verified 10/18/20 19:46 REDDENS & BLISTERS- PAPER TAPE OKAY azithromycin [From Zithromax] Allergy Nausea & Verified 10/18/20 19:46 Vomiting meperidine HCl [From Demerol] Allergy Nausea & Verified 10/18/20 19:46 Vomiting morphine Allergy Nausea & Verified 10/18/20 19:46 Vomiting Sulfa (Sulfonamide Allergy Nausea & Verified 10/18/20 19:46 Antibiotics) Vomiting aspirin AdvReac STOMACH Verified 10/18/20 19:46 HERRERA anesthesia Allergy facial/arms/hands Uncoded 10/14/20 21:50 swelling,skin"turns beet red", nausea DISSOLVING SUTURES Allergy INFECTION Uncoded 10/14/20 21:50 Review of Systems ROS Statement: Those systems with pertinent positive or pertinent negative responses have been documented in the HPI. ROS Other: All systems not noted in ROS Statement are negative. Past Medical History Past Medical History: Asthma, Cancer, COPD, GERD/Reflux, Hyperlipidemia, Hypertension, Osteoarthritis (OA), Pneumonia, Pulmonary Embolus (PE), Rheumatoid Arthritis (RA), Sleep Apnea/CPAP/BIPAP, Thyroid Disorder Additional Past Medical History / Comment(s): COPD/asthma, chronic cough, hypothyroidism, history of basal cell carcinoma of the skin resected, history of melanoma of the skin involving the back, resected, history of diverticulosis/diverticulitis, history of fibrocystic disease, obstructive sleep apnea can sleep with the CPAP, varicose veins in lower extremities, hypothyroidism History of Any Multi-Drug Resistant Organisms: None Reported Past Surgical History: Bladder Surgery, Bowel Resection, Cholecystectomy, Heart Catheterization, Hernia Repair, Hysterectomy, Joint Replacement, Orthopedic Surgery Additional Past Surgical History / Comment(s): LEFT KNEE REPLACED, PARTIAL THYROIDECTOMY,HIATAL HERNIA REPAIR 07/2013, ABDOMINAL HERNIA REPAIR,MULTIPLE SKIN LESIONS-PT STATED HAS HAS BASAL,SQUAMOUS AND MELANOMA SKIN CA ( NECK,RT UPPER & LOWER THIGH,LT ARM,RT ARM, face, back-melanoma)SKIN GRAFTS TO VINOD.LEGS- LT EAR-LT MIDDLE FINGER,ACHILLES TENDON surgery. RT OVARY 1 TUBE REMOVED, SIGMOID RESECTION D/T BOWEL OBSTRUCTION,RT LITLE FINGER AMP, Past Anesthesia/Blood Transfusion Reactions: Previous Problems w/ Anesthesia, Motion Sickness, Postoperative Nausea & Vomiting (PONV) Additional Past Anesthesia/Blood Transfusion Reaction / Comment(s): STATES "HAS HAD SWELLING TO FACE,HANDS,ARMS AND SKIN TURNS "BEET RED"WITH ANESTHESIA-with IV sedation. states no problems with last surgery at [facility] 01/2017-anesthesia re cords on chart Past Psychological History: Anxiety Smoking Status: Never smoker Past Alcohol Use History: None Reported Past Drug Use History: None Reported - Past Family History Mother Family Medical History: Diabetes Mellitus Additional Family Medical History / Comment(s): HEART PROBLEMS Sister(s) Family Medical History: Diabetes Mellitus, Myocardial Infarction ([place]) Additional Family Medical History / Comment(s): EMPHYSEMA Father Family Medical History: Cancer Additional Family Medical History / Comment(s): LUNG CA. General Exam - General Exam Comments Initial Comments: GENERAL: Patient is well-developed and well-nourished. Patient is nontoxic and well- hydrated and is in mild distress. ENT: Neck is soft and supple. No significant lymphadenopathy is noted. Oropharynx is clear. Moist mucous membranes. Neck has full range of motion without eliciting any pain. EYES: The sclera were anicteric and conjunctiva were pink and moist. Extraocular movements were intact and pupils were equal round and reactive to light. Eye lids were unremarkable. PULMONARY: Unlabored respirations. Good breath sounds bilaterally. No audible rales rhonchi or wheezing was noted. CARDIOVASCULAR: There is a regular rate and rhythm without any murmurs gallops or rubs. ABDOMEN: Soft and nontender with normal bowel sounds. SKIN: Skin is clear with no lesions or rashes and otherwise unremarkable. NEUROLOGIC: Patient is alert and oriented x3. Cranial nerves II through XII are grossly intact. Motor and sensory are also intact. Normal speech, volume and content. Symmetrical smile. MUSCULOSKELETAL: Normal extremities with adequate strength and full range of motion. LYMPHATICS: No significant lymphadenopathy is noted PSYCHIATRIC: Patient is very anxious Limitations: no limitations Course Vital Signs 0310/18/20 10/18/20 18:37 19:45 20:00 Temperature 98.9 F Pulse Rate 99 94 93 Respiratory 24 20 20 Rate Blood Pressure 220/85 207/90 209/87 O2 Sat by Pulse 96 95 94 L Oximetry 10/18/20 10/18/20 10/18/20 20:30 21:00 21:14 Temperature Pulse Rate 86 101 H 101 H Respiratory 18 22 22 Rate Blood Pressure 191/87 181/83 181/92 O2 Sat by Pulse 95 93 L 94 L Oximetry 10/18/20 21:45 Temperature Pulse Rate 103 H Respiratory 22 Rate Blood Pressure 171/76 O2 Sat by Pulse 93 L Oximetry Medical Decision Making - Medical Decision Making EKG shows sinus rhythm with occasional PVC at 90 bpm MT interval is 136 QRS is 86 QT interval 396 QTC is 484. Patient's EKG shows no ST segment elevation or depression. Patient received hydralazine 10 mg 3 in the emergency department as well as her home Catapres. Patient also got Ativan for her anxiety. CT of the brain shows no acute abnormality. Patient's blood pressure remained high she did become nauseous slightly gave her some droperidol for the nausea and is in analgesia for headache and hopefully for some of her agitation. I spoke with Rekha the nurse practitioner for Dr. Khan she agreed to admit the patient. I consulted the psychiatrist - Lab Data Result diagrams: 10/18/20 21:23 10/18/20 21:23 Lab Results 10/18/20 10/18/20 10/18/20 Range/Units 21:23 21:23 21:23 WBC 11.1 H (3.8-10.6) k/uL RBC 4.50 (3.80-5.40) m/uL Hgb 13.7 (11.4-16.0) gm/dL Hct 41.0 (34.0-46.0) % MCV 91.2 (80.0-100.0) fL MCH 30.4 (25.0-35.0) pg MCHC 33.3 (31.0-37.0) g/dL RDW 14.8 (11.5-15.5) % Plt Count 256 (150-450) k/uL MPV 7.3 Neutrophils % 75 % Lymphocytes % 18 % Monocytes % 3 % Eosinophils % 3 % Basophils % 0 % Neutrophils # 8.3 H (1.3-7.7) k/uL Lymphocytes # 2.0 (1.0-4.8) k/uL Monocytes # 0.3 (0-1.0) k/uL Eosinophils # 0.3 (0-0.7) k/uL Basophils # 0.0 (0-0.2) k/uL Sodium 137 (137-145) mmol/L Potassium 4.0 (3.5-5.1) mmol/L Chloride 102 (98-107) mmol/L Carbon Dioxide 28 (22-30) mmol/L Anion Gap 7 mmol/L BUN 22 H (7-17) mg/dL Creatinine 0.84 (0.52-1.04) mg/dL Est GFR (CKD-EPI)AfAm 75 (>60 ml/min/1.73 sqM) Est GFR (CKD-EPI)NonAf 65 (>60 ml/min/1.73 sqM) Glucose 137 H (74-99) mg/dL Calcium 9.3 (8.4-10.2) mg/dL Total Bilirubin 0.5 (0.2-1.3) mg/dL AST 19 (14-36) U/L ALT 16 (4-34) U/L Alkaline Phosphatase 66 (38-126) U/L Troponin I 0.012 (0.000-0.034) ng/mL Total Protein 6.7 (6.3-8.2) g/dL Albumin 4.2 (3.5-5.0) g/dL Disposition Clinical Impression: Hypertensive urgency, Anxiety Disposition: ADMITTED IP TO THIS [facility] Referrals: Ying Pearson MD [Primary Care Provider] - 1-2 days Time of Disposition: 21:50
[2020-10-18] MEDS: LORazepam 2 MG/ML INJ IV STA ×2 (19:17→20:25)
[2020-10-18] MEDS ORDERED: cloNIDine HCL 0.1 MG TAB PO STA (20:50)
[2020-10-18] MEDS ORDERED: cloNIDine HCL 0.2 MG TAB PO STA (21:02)
[2020-10-18] MEDS ORDERED: ONDANSETRON 4 MG/2 ML VIAL IVP STA (21:15)
[2020-10-18] MEDS ORDERED: LORazepam 2 MG/ML INJ IV STA (21:17)
[2020-10-18 21:34] LABS: Basophils % (A) 0 %; Eosinophils # (A) 0.3 k/uL (0-0.7); Eosinophils % (A) 3 %; HGB 13.7 gm/dL (11.4-16.0); Lymphocytes % (A) 18 %; MCH 30.4 pg (25.0-35.0); MCHC 33.3 g/dL (31.0-37.0); MCV 91.2 fL (80.0-100.0); Mean Platelet Volume 7.3; Monocytes # (A) 0.3 k/uL (0-1.0); Monocytes % (A) 3 %; Neutrophils # (A) 8.3 k/uL (1.3-7.7); Neutrophils % (A) 75 %; Platelet Count 256 k/uL (150-450); RDW 14.8 % (11.5-15.5); WBC 11.1 k/uL (3.8-10.6)
[2020-10-18 21:43] LABS: Albumin 4.2 g/dL (3.5-5.0); Calcium 9.3 mg/dL (8.4-10.2); Total Bilirubin 0.5 mg/dL (0.2-1.3); Total Protein 6.7 g/dL (6.3-8.2)
--- NOTE | 2020-10-18 21:52 | CT ---
EXAMINATION TYPE: CT brain wo con DATE OF EXAM: 10/18/2020 COMPARISON: 10/14/2020 HISTORY: Hypertensive headache. CT DLP: 1247.4 mGycm Automated exposure control for dose reduction was used. Ventricles have normal size. There is no mass effect nor midline shift. There is no sign of intracran ial hemorrhage. There is minimal hypodensity in the periventricular white matter. Calvarium is intact . The skull base is intact. IMPRESSION: Mild atrophy and chronic small vessel ischemia. No acute intracranial abnormality. No change.
[2020-10-18] MEDS ORDERED: SODIUM CHLORIDE 0.9% 1,000 ML IV ONE (22:03)
[2020-10-18] MEDS ORDERED: ALPRAZolam 0.25 MG TAB PO PRN (22:05)
[2020-10-19] MEDS: LEVOTHYROXINE 125 MCG TAB PO SCH (06:31)
[2020-10-19] MEDS: ACETAMINOPHEN TAB 325 MG TAB PO PRN ×3 (06:53→17:32)
[2020-10-19] MEDS ORDERED: FUROSEMIDE 40 MG TAB PO SCH (09:00)
[2020-10-19] MEDS ORDERED: hydrALAZINE HCL 25 MG TAB PO SCH (09:00)
[2020-10-19] MEDS: PANTOPRAZOLE 40 MG TABLET PO SCH ×2 (09:43→19:44)
[2020-10-19] MEDS: ATORVASTATIN 20 MG TAB PO SCH (09:44)
[2020-10-19] MEDS: LOSARTAN 50 MG TAB PO SCH (09:44)
[2020-10-19] MEDS: FUROSEMIDE 10 MG/ML 4 ML VIAL IV SCH ×2 (10:42→17:27)
[2020-10-19] MEDS: carvediloL 6.25 MG TAB PO SCH ×2 (11:47→17:32)
--- NOTE | 2020-10-19 12:00 | ECHOF ---
Referral Reason:shortness of breath, orthopnea MEASUREMENTS -------- HEIGHT: 170.2 cm WEIGHT: 88.0 kg BP: RVIDd: 3.4 cm (< 3.3) IVSd: 1.3 cm (0.6 - 1.1) LVIDd: 4.9 cm (3.9 - 5.3) LVPWd: 2.0 cm (0.6 - 1.1) IVSs: 1.8 cm LVIDs: 4.4 cm LVPWs: 1.7 cm LA Diam: 3.7 cm (2.7 - 3.8) MV EXCURSION: 17.310 mm (> 18.000) MV EF SLOPE: 80 mm/s (70 - 150) EPSS: 0.9 cm MV E Nilesh: 0.32 m/s MV DecT: 247 ms MV A Nilesh: 0.68 m/s MV E/A Ratio: 0.47 RAP: 5.00 mmHg RVSP: 16.65 mmHg FINDINGS -------- Sinus rhythm. This was a techncally difficult study with suboptimal views, , Lumason utilized for enhancement of im ages. The left ventricular size is normal. There is mild concentric left ventricular hypertrophy. Overa ll left ventricular systolic function is low-normal with, an EF between 50 - 55 %. The right ventricle is normal in size. The left atrial size is normal. The right atrial size is normal. The aortic valve was not well visualized. The mitral valve was not well visualized. Mild mitral regurgitation is present. The tricuspid valve was not well visualized. No regurgitation noted Right ventricular systolic pr essure is normal at < 35 mmHg. The pulmonic valve was not well visualized. CONCLUSIONS -------- 1. This was a techncally difficult study with suboptimal views, , Lumason utilized for enhancement of images. 2. The left ventricular size is normal. 3. There is mild concentric left ventricular hypertrophy. 4. Overall left ventricular systolic function is low-normal with, an EF between 50 - 55 %. 5. The right ventricle is normal in size. 6. The left atrial size is normal. 7. The right atrial size is normal. 8. The aortic valve was not well visualized. 9. The mitral valve was not well visualized. 10. Mild mitral regurgitation is present. 11. The tricuspid valve was not well visualized. 12. No regurgitation noted 13. The pulmonic valve was not well visualized. COAL DUMPING EQUIPMENT OPERATOR: Gabbie Boston RDCS
--- NOTE | 2020-10-19 12:57 | P.CRDCN ---
History of Present Illness History of present illness: HISTORY OF PRESENTING ILLNESS This is a pleasant 80-year-old female past medical history significant for asthma, COPD, hypertension, sleep apnea, hyperlipidemia. And she follows in the office with Dr. Newsome. We have been asked to see in consultation for hypertensive urgency, shortness of breath. Patient is seen and examined at bedside, resting in chair, no acute distress. She stated that yesterday while watching TV she started to get a 5/10 constant, dull headache. She knew her blood pressure was high. She called her son to take her to the emergency department. She endorses intermittent shortness of breath and lightheadedness when this occurred. At home her blood pressure usually runs around 130-140 systolic. She recently saw her PCP on 10/17 and was prescribed hydralazine 25 mg three times a day. She has been taking all her medications as prescribed. Her recently . She did hurt her back while taking care of her and has continuously been taking Advil three times a day. She also endorses symptoms of orthopnea and lower extremity edema, she has been sleeping in a recliner. She does have a history of sleep apnea but stated she could not tolerate her CPAP at night. On arrival to emergency department BP 220/85 Hr 99, maintaining oxygen saturations on room air. Patient was given 10 mg of IV hydralazine 3, droperidol 1.5 mg IV, clonidine 2 mg by mouth and admitted to cardiac floor. Patient denies history of diabetes, [place] or stroke. Laboratory data reviewed, sodium 137, potassium 4.0, creatinine 0.84, troponin negative. Vital signs blood pressure 176/92 heart rate 96, oxygen saturation 76% in room air, afebrile. DIAGNOSTICS Most recent Echo in 2018 showed a ejection fraction of 50-55% Patient had a cardiac catheterization in 2018 which showed mild nonobstructive CAD involving proximal LAD with a ejection fraction of 60%. EKG reveals sinus rhythm with PVCs, and left axis deviation. Telemetry tracings indicate patient in sinus rhythm heart rate in the 80s. Current cardiac medications include simvastatin 40 mg daily, hydralazine 25 mg 3 times a day, losartan 100 mg daily, amlodipine 10 mg nightly, clonidine 0.3 mg nightly, Lasix 40 mg by mouth daily. REVIEW OF SYSTEMS At the time of my exam: CONSTITUTIONAL: Denies fever or chills. CARDIOVASCULAR: +shortness of breath, +orthopnea, +PND, +LE edema. Denies chest pain, or palpitations. RESPIRATORY: Denies cough. GASTROINTESTINAL: Denies abdominal pain, diarrhea, constipation, nausea or vomiting. MUSCULOSKELETAL: Denies myalgias. NEUROLOGIC:+headache Denies numbness, tingling, or weakness. ENDOCRINE: Denies fatigue, weight change, polydipsia or polyurina. GENITOURINARY: Denies burning, hematuria or urgency with micturation. HEMATOLOGIC: Denies history of anemia or bleeding. PHYSICAL EXAMINATION CONSTITUTIONAL: No apparent distress. HEENT: Head is normocephalic. Pupils are equal, round. Sclerae anicteric. Mucous membranes of the mouth are moist. No JVD. No carotid bruit. CHEST EXAMINATION: Lungs diminished bibasilar, other lung khalil clear to auscultation. No chest wall tenderness is noted on palpation or with deep breathing. HEART EXAMINATION: Tachycardic rate and rhythm. S1, S2 heard. No murmurs, gallops or rub. ABDOMEN: Soft, nontender. Positive bowel sounds. SKIN: intact, no wounds EXTREMITIES: 2+ peripheral pulses, +3 pitting bilateral lower extremity edema and + calf tenderness. NEUROLOGIC EXAMINATION: Patient is awake, alert and oriented x3. ASSESSMENT -Acute on chronic diastolic heart failure -Hypertensive Urgency -History of coronary artery disease -History of Hypertension -History of hyperlipidemia PLAN -TTE ordered -Start IV diuretics 40mg IV BID and monitor I/Os -Continue losartan 100mg daily, amlodipine 10mg nightly, clonidine 0.3mg nightly -Continue statin -Start beta esthela- carvedilol 6.25mg BID -Heart Healthy Diet, I/Os, Daily Weights Nurse Practitioner note has been reviewed, I agree with a documented findings and plan of care. Patient was seen and examined. Past Medical History Past Medical History: Asthma, Cancer, COPD, GERD/Reflux, Hyperlipidemia, Hypertension, Osteoarthritis (OA), Pneumonia, Pulmonary Embolus (PE), Rheumatoid Arthritis (RA), Sleep Apnea/CPAP/BIPAP, Thyroid Disorder Additional Past Medical History / Comment(s): COPD/asthma, chronic cough, hypothyroidism, history of basal cell carcinoma of the skin resected, history of melanoma of the skin involving the back, resected, history of diverticulosis /diverticulitis, history of fibrocystic disease, obstructive sleep apnea can sleep with the CPAP, varicose veins in lower extremities, hypothyroidism History of Any Multi-Drug Resistant Organisms: None Reported Past Surgical History: Bladder Surgery, Bowel Resection, Cholecystectomy, Heart Catheterization, Hernia Repair, Hysterectomy, Joint Replacement, Orthopedic Surgery Additional Past Surgical History / Comment(s): LEFT KNEE REPLACED, PARTIAL THYROIDECTOMY,HIATAL HERNIA REPAIR 07/2013, ABDOMINAL HERNIA REPAIR,MULTIPLE SKIN LESIONS-PT STATED HAS HAS BASAL,SQUAMOUS AND MELANOMA SKIN CA ( NECK,RT UPPER & LOWER THIGH,LT ARM,RT ARM, face, back-melanoma)SKIN GRAFTS TO VINOD.LEGS- LT EAR-LT MIDDLE FINGER,ACHILLES TENDON surgery. RT OVARY 1 TUBE REMOVED, SIGMOID RESECTION D/T BOWEL OBSTRUCTION,RT LITLE FINGER AMP, Past Anesthesia/Blood Transfusion Reactions: Previous Problems w/ Anesthesia, Motion Sickness, Postoperative Nausea & Vomiting (PONV) Additional Past Anesthesia/Blood Transfusion Reaction / Comment(s): STATES "HAS HAD SWELLING TO FACE,HANDS,ARMS AND SKIN TURNS "BEET RED"WITH ANESTHESIA-with IV sedation. states no problems with last surgery at [facility] 01/2017-anesthesia records on chart Past Psychological History: Anxiety Smoking Status: Never smoker Past Alcohol Use History: None Reported Additional Past Alcohol Use History / Comment(s): STARTED SMOKING 1963 AND QUIT 1973 SMOKED 1 PPD Past Drug Use History: None Reported - Past Family History Mother Family Medical History: Diabetes Mellitus Additional Family Medical History / Comment(s): HEART PROBLEMS Sister(s) Family Medical History: Diabetes Mellitus, Myocardial Infarction ([place]) Additional Family Medical History / Comment(s): EMPHYSEMA Father Family Medical History: Cancer Additional Family Medical History / Comment(s): LUNG CA. Medications and Allergies Home Medications Medication Instructions Recorded Confirmed Type cloNIDine HCL 0.3 mg PO HS 07/01/14 10/18/20 History Pantoprazole Sodium [Protonix] 40 mg PO BID 03/19/18 10/18/20 History Furosemide [Lasix] 40 mg PO DAILY 12/16/18 10/18/20 History Potassium Chloride ER [K-Dur 10] 10 meq PO BID 12/16/18 10/18/20 History ALPRAZolam [Xanax] 0.25 mg PO BID PRN 10/18/20 10/18/20 History Budesonide [Budesonide EC] 3 mg PO TID 10/18/20 10/18/20 History Clotrimazole/Betameth Cream 1 applic TOPICAL BID 10/18/20 10/18/20 History [Lotrisone] Colon Probiotic 1 tab PO DAILY 10/18/20 10/18/20 History Echinacea 1,000 mg PO BID 10/18/20 10/18/20 History Elderberry Fruit and Flower [Black 1 cap PO DAILY 10/18/20 10/18/20 History Elderberry 575 mg Cap] Levothyroxine Sodium [Synthroid] 125 mcg PO DAILY 10/18/20 10/18/20 History Losartan Potassium 100 mg PO DAILY 10/18/20 10/18/20 History Sertraline [Zoloft] 25 mg PO HS 10/18/20 10/18/20 History Simvastatin 40 mg PO DAILY 10/18/20 10/18/20 History Turmeric Root Extract [Turmeric] 500 mg PO BID 10/18/20 10/18/20 History amLODIPine [Norvasc] 10 mg PO HS 10/18/20 10/18/20 History hydrALAZINE HCL [Apresoline] 25 mg PO TID 10/18/20 10/18/20 History Allergies Allergy/AdvReac Type Severity Reaction Status Date / Time adhesive Allergy SKIN Verified 10/18/20 19:46 REDDENS & BLISTERS- PAPER TAPE OKAY azithromycin [From Zithromax] Allergy Nausea & Verified 10/18/20 19:46 Vomiting meperidine HCl [From Demerol] Allergy Nausea & Verified 10/18/20 19:46 Vomiting morphine Allergy Nausea & Verified 10/18/20 19:46 Vomiting Sulfa (Sulfonamide Allergy Nausea & Verified 10/18/20 19:46 Antibiotics) Vomiting aspirin AdvReac STOMACH Verified 10/18/20 19:46 HERRERA anesthesia Allergy facial/arms/hands Uncoded 10/14/20 21:50 swelling,skin"turns beet red", nausea DISSOLVING SUTURES Allergy INFECTION Uncoded 10/14/20 21:50 Physical Exam Vitals: Vital Signs Temp Pulse Pulse Resp BP BP Pulse Ox 10/19/20 06:34 195/88 10/19/20 04:00 98.3 F 86 19 191/84 94 L 10/18/20 23:23 98 F 83 18 174/77 97 10/18/20 22:40 98.3 F 98 24 173/73 94 L 10/18/20 22:00 101 H 22 173/72 93 L 10/18/20 21:45 103 H 22 171/76 93 L 10/18/20 21:14 101 H 22 181/92 94 L 10/18/20 21:00 101 H 22 181/83 93 L 10/18/20 20:30 86 18 191/87 95 10/18/20 20:00 93 20 209/87 94 L 10/18/20 19:45 94 20 207/90 95 10/18/20 18:37 98.9 F 99 24 220/85 96 Intake and Output 10/18/20 10/19/20 10/19/20 22:59 06:59 14:59 Other: Voiding Method Toilet # Voids 1 3 Weight 81.647 kg 88.2 kg Results 10/18/20 21:23 10/18/20 21:23 Cardiac Enzymes 10/18/20 10/18/20 Range/Units 21:23 21:23 AST 19 (14-36) U/L Troponin I 0.012 (0.000-0.034) ng/mL CBC 10/18/20 Range/Units 21:23 WBC 11.1 H (3.8-10.6) k/uL RBC 4.50 (3.80-5.40) m/uL Hgb 13.7 (11.4-16.0) gm/dL Hct 41.0 (34.0-46.0) % Plt Count 256 (150-450) k/uL Comprehensive Metabolic Panel 10/18/20 Range/Units 21:23 Sodium 137 (137-145) mmol/L Potassium 4.0 (3.5-5.1) mmol/L Chloride 102 (98-107) mmol/L Carbon Dioxide 28 (22-30) mmol/L BUN 22 H (7-17) mg/dL Creatinine 0.84 (0.52-1.04) mg/dL Glucose 137 H (74-99) mg/dL Calcium 9.3 (8.4-10.2) mg/dL AST 19 (14-36) U/L ALT 16 (4-34) U/L Alkaline Phosphatase 66 (38-126) U/L Total Protein 6.7 (6.3-8.2) g/dL Albumin 4.2 (3.5-5.0) g/dL Current Medications Generic Name Dose Route Start Last Admin Trade Name Freq PRN Reason Stop Dose Admin Acetaminophen 650 mg 10/19/20 06:39 10/19/20 06:53 Acetaminophen Tab 325 Mg Tab PO 650 mg Q6HR PRN Administration Fever and/ or Pain Alprazolam 0.25 mg 10/18/20 22:05 Alprazolam 0.25 Mg Tab PO BID PRN Anxiety Amlodipine Besylate 10 mg 10/19/20 21:00 Amlodipine 10 Mg Tab PO HS KSENIA Atorvastatin Calcium 20 mg 10/19/20 09:00 Atorvastatin 20 Mg Tab PO DAILY KSENIA Furosemide 40 mg 10/19/20 09:00 Furosemide 40 Mg Tab PO DAILY KSENIA Hydralazine HCl 25 mg 10/19/20 09:00 Hydralazine Hcl 25 Mg Tab PO TID KSENIA Sodium Chloride 1,000 mls @ 50 mls/hr 10/18/20 22:03 10/18/20 22:58 Saline 0.9% IV 10/19/20 18:02 50 mls/hr .Q20H ONE Administration Levothyroxine Sodium 125 mcg 10/19/20 06:30 10/19/20 06:31 Levothyroxine 125 Mcg Tab PO 125 mcg DAILY@0630 KSEINA Administration Losartan Potassium 100 mg 10/19/20 09:00 Losartan 50 Mg Tab PO DAILY KSENIA Pantoprazole Sodium 40 mg 10/19/20 09:00 Pantoprazole 40 Mg Tablet PO BID KSENIA Sertraline HCl 25 mg 10/19/20 21:00 Sertraline 25 Mg Tab PO HS [facility] Intake and Output 10/18/20 10/19/20 10/19/20 22:59 06:59 14:59 Other: Voiding Method Toilet # Voids 1 3 Weight 81.647 kg 88.2 kg 10/18/20 21:23 10/18/20 21:23
--- NOTE | 2020-10-19 13:29 | P.CN ---
Psychiatric Consult - . Consult date: 10/19/20 Consult:: 10/19/20 13:18 IDENTIFYING DATA: This patient is a 80-year-old female, , currently lives alone in a house has 2 kids and 3 grandkids. REASON FOR REFERRAL: Psychiatry was consulted for anxiety/grief reaction HISTORY OF PRESENT ILLNESS: The patient presented to the hospital yesterday with an increase in her blood pressure and complaints of a headache. According to ER report patient was experiencing this and was treated in the ER 5 days prior. Patient was given Catapres and hydralazine in the ER and admitted to medicine for further evaluation and treatment. Patient also had been complaining of significant anxiety and grief due to her dying in August after 62 years of marriage. Patient's computed tomography scan of her brain showed no acute changes are recorded show mild atrophy and chronic vessel ischemia. Patient was seen at the bedside today and was fairly cooperative with typewriter mechanic however appear to be anxious at times. She states that she was having high blood pressure and experiencing significant anxiety at home. She spoke mainly about her who in August of this year. She describes him having a fall at home and breaking his hip and a long and difficult course at rehab. She states that he did not get better at rehab and that it was "the biggest mistake of my life putting them there". She claims that she has guilt associated with this. She states that she took him back home and was not able to care for him and then eventually placed him in a assisted-living home for 2-1/2 months before he . She states that her mood is "down sometimes" and denies any current depression however states that she does "missed him a lot" and was tearful when speaking about her . She states that she has been finding it difficult to cope with her loss over the past few months and states that her 2 kids have been trying to visit her and have been fairly supportive. She states that her sleep has been poor and appetite has been fair. She states that she has been on Zoloft for the past several weeks however has not seen much change in her anxiety and mood. At this time patient denies any suicidal or homical ideations, intent or plan. Patient denies any auditory, visual hallucinations and denies any paranoia or delusions. Patients admits to using no recreational drugs or cigarettes. PAST PSYCHIATRIC HISTORY: Patient has a a history of anxiety and depression. Patient was previously on Xanax when necessary and also Zoloft prescribed by her primary care doctor. Patient denies any previous psychiatric hospitalizations. Patient denies any psychiatric outpatient follow-up. Patient denies any history of suicide attempts in the past. PAST MEDICAL HISTORY: Asthma, cancer, COPD, GERD, hyperlipidemia, hypertension, osteoporosis, rheumatoid arthritis, obstructive sleep apnea, thyroid disorder. ALLERGIES: as per EMR. CHEMICAL DEPENDENCY HISTORY: as per HPI. FAMILY PSYCHIATRIC/SUBSTANCE USE HISTORY: denies SOCIAL HISTORY: Patient was born and raised in [place]. 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 She states that she has never been in shelter or detention. She claims that she currently lives alone in a house has 2 kids and 3 grandkids. MENTAL STATUS EXAM: General Appearance: Patient appears to be sitting in a chair, stated age is alert, pleasant, and cooperative. Appears to be anxious at times. Patient appears to have fair hygiene and grooming wearing hospital gown with fair eye contact. Behavior: Patient is calmly lying in bed without any agitated behavior. Appears to be anxious at times. Speech: Patient's speech is fluent and nonpressured. Mood/Affect: Patient reports their mood is "anxious", affect is congruent Suicidality/Homicidality: Patient denies having any suicidal or homicidal ideation intent or plan. Perceptions: Patient denies any visual hallucinations and denies any auditory hallucinations Though content/process: There is no evidence of any delusional thought content and thought process is linear and goal-directed. Focused on her stressors and her passing away. Memory and concentration: AOX3, grossly intact for the purposes of this session. Can spell "WORLD" backwards Judgment and insight: Fair IMPRESSIONS: Adjustment disorder with mixed anxiety and depressed mood PLAN: -At this time patient DOES NOT meet criteria for inpatient psychiatric admission. -Delirium precautions recommended with patient including - avoiding use of narcotics and SUPERVISOR ABATTOIR sedatives, limit anticholinergic medications when possible, frequent re-orientation, minimize use of restraints, open window shades during the day and close them at night -Would recommend the following medication changes/additions: Increase Zoloft to 50 mg daily for mood/anxiety. Added on Remeron 15 mg daily at bedtime for mood/anxiety/insomnia. Can continue with current dose of Xanax when necessary for now. -spring salvage worker to provide patient with outpatient mental health/psychiatry resources for appropriate follow up upon discharge -Will continue to follow along -Please contact with any questions.
--- NOTE | 2020-10-19 14:48 | P.HPIM ---
History of Present Illness H&P Date: 10/19/20 Chief Complaint: High blood pressure 80-year-old female presents emergency Department complaining that her blood pressures elevated and she has headache. Patient states she was here 5 days ago because of same she had a CAT scan and was given something to relax and her blood pressure did come down. Patient states she wasn't given anything emergency department. I verified this on her old chart. Patient states she has headache but it's typical headache that she gets high blood pressure. Patient denies any numbness weakness. Patient denies chest pain difficulty breathing shortness of breath. Patient denies any fever chills or cough per patient denies any abdominal pain patient denies nausea vomiting diarrhea. Patient states she's excessively anxious because her just in August after 62 years of marriage. Workup in ED including an EKG shows sinus rhythm with occasional PVC at 90 bpm HI interval is 136 QRS is 86 QT interval 396 QTC is 484. Patient's EKG shows no ST segment elevation or depression. Patient received hydralazine 10 mg 3 in the emergency department as well as her home Catapres. Patient also got Ativan for her anxiety. CT of the brain shows no acute abnormality. Patient's blood pressure remained high she did become nauseous; patient received droperidol for the nausea and analgesia for headache and agitation. Review of Systems REVIEW OF SYSTEMS: CONSTITUTIONAL: No fever, no malaise, no fatigue. HEENT: No recent visual problems or hearing problems. Denied any sore throat. CARDIOVASCULAR: No chest pain, orthopnea, PND, no palpitations, no syncope. PULMONARY: No shortness of breath, no cough, no hemoptysis. GASTROINTESTINAL: No diarrhea, no nausea, no vomiting, no abdominal pain. NEUROLOGICAL: No headaches, no weakness, no numbness. HEMATOLOGICAL: Denies any bleeding or petechiae. GENITOURINARY: Denies any burning micturition, frequency, or urgency. MUSCULOSKELETAL/RHEUMATOLOGICAL: Denies any joint pain, swelling, or any muscle pain. ENDOCRINE: Denies any polyuria or polydipsia. The rest of the 14-point review of systems is negative. Past Medical History Past Medical History: Asthma, Cancer, COPD, GERD/Reflux, Hyperlipidemia, Hypertension, Osteoarthritis (OA), Pneumonia, Pulmonary Embolus (PE), Rheumatoid Arthritis (RA), Sleep Apnea/CPAP/BIPAP, Thyroid Disorder Additional Past Medical History / Comment(s): COPD/asthma, chronic cough, hypothyroidism, history of basal cell carcinoma of the skin resected, history of melanoma of the skin involving the back, resected, history of diverticulosis/diverticulitis, history of fibrocystic disease, obstructive sleep apnea can sleep with the CPAP, varicose veins in lower extremities, hypothyroidism History of Any Multi-Drug Resistant Organisms: None Reported Past Surgical History: Bladder Surgery, Bowel Resection, Cholecystectomy, Heart Catheterization, Hernia Repair, Hysterectomy, Joint Replacement, Orthopedic Surgery Additional Past Surgical History / Comment(s): LEFT KNEE REPLACED, PARTIAL THYROIDECTOMY,HIATAL HERNIA REPAIR 07/2013, ABDOMINAL HERNIA REPAIR,MULTIPLE SKIN LESIONS-PT STATED HAS HAS BASAL,SQUAMOUS AND MELANOMA SKIN CA ( NECK,RT UPPER & LOWER THIGH,LT ARM,RT ARM, face, back-melanoma)SKIN GRAFTS TO VINOD.LEGS- LT EAR-LT MIDDLE FINGER,ACHILLES TENDON surgery. RT OVARY 1 TUBE REMOVED, SIGMOID RESECTION D/T BOWEL OBSTRUCTION,RT LITLE FINGER AMP, Past Anesthesia/Blood Transfusion Reactions: Previous Problems w/ Anesthesia, Motion Sickness, Postoperative Nausea & Vomiting (PONV) Additional Past Anesthesia/Blood Transfusion Reaction / Comment(s): STATES "HAS HAD SWELLING TO FACE,HANDS,ARMS AND SKIN TURNS "BEET RED"WITH ANESTHESIA-with IV sedation. states no problems with last surgery at [facility] 01/2017-anesthesia records on chart Past Psychological History: Anxiety Smoking Status: Never smoker Past Alcohol Use History: None Reported Additional Past Alcohol Use History / Comment(s): STARTED SMOKING 1963 AND QUIT 1974 SMOKED 1 PPD Past Drug Use History: None Reported - Past Family History Mother Family Medical History: Diabetes Mellitus Additional Family Medical History / Comment(s): HEART PROBLEMS Sister(s) Family Medical History: Diabetes Mellitus, Myocardial Infarction (ID) Additional Family Medical History / Comment(s): EMPHYSEMA Father Family Medical History: Cancer Additional Family Medical History / Comment(s): LUNG CA. Medications and Allergies Home Medications Medication Instructions Recorded Confirmed Type cloNIDine HCL 0.3 mg PO HS 07/01/14 10/18/20 History Pantoprazole Sodium [Protonix] 40 mg PO BID 03/19/18 10/18/20 History Furosemide [Lasix] 40 mg PO DAILY 12/16/18 10/18/20 History Potassium Chloride ER [K-Dur 10] 10 meq PO BID 12/16/18 10/18/20 History ALPRAZolam [Xanax] 0.25 mg PO BID PRN 10/18/20 10/18/20 History Budesonide [Budesonide EC] 3 mg PO TID 10/18/20 10/18/20 History Clotrimazole/Betameth Cream 1 applic TOPICAL BID 10/18/20 10/18/20 History [Lotrisone] Colon Probiotic 1 tab PO DAILY 10/18/20 10/18/20 History Echinacea 1,000 mg PO BID 10/18/20 10/18/20 History Elderberry Fruit and Flower [Black 1 cap PO DAILY 10/18/20 10/18/20 History Elderberry 575 mg Cap] Levothyroxine Sodium [Synthroid] 125 mcg PO DAILY 10/18/20 10/18/20 History Losartan Potassium 100 mg PO DAILY 10/18/20 10/18/20 History Sertraline [Zoloft] 25 mg PO HS 10/18/20 10/18/20 History Simvastatin 40 mg PO DAILY 10/18/20 10/18/20 History Turmeric Root Extract [Turmeric] 500 mg PO BID 10/18/20 10/18/20 History amLODIPine [Norvasc] 10 mg PO HS 10/18/20 10/18/20 History hydrALAZINE HCL [Apresoline] 25 mg PO TID 10/18/20 10/18/20 History Allergies Allergy/AdvReac Type Severity Reaction Status Date / Time adhesive Allergy SKIN Verified 10/18/20 19:46 REDDENS & BLISTERS- PAPER TAPE OKAY azithromycin [From Zithromax] Allergy Nausea & Verified 10/18/20 19:46 Vomiting meperidine HCl [From Demerol] Allergy Nausea & Verified 10/18/20 19:46 Vomiting morphine Allergy Nausea & Verified 10/18/20 19:46 Vomiting Sulfa (Sulfonamide Allergy Nausea & Verified 10/18/20 19:46 Antibiotics) Vomiting aspirin AdvReac STOMACH Verified 10/18/20 19:46 HERRERA anesthesia Allergy facial/arms/hands Uncoded 10/14/20 21:50 swelling,skin"turns beet red", nausea DISSOLVING SUTURES Allergy INFECTION Uncoded 10/14/20 21:50 Physical Exam Vitals: Vital Signs Temp Pulse Pulse Resp BP BP Pulse Ox 10/19/20 08:00 97.5 F L 96 18 176/92 96 10/19/20 06:34 195/88 10/19/20 04:00 98.3 F 86 19 191/84 94 L 10/18/20 23:23 98 F 83 18 174/77 97 10/18/20 22:40 98.3 F 98 24 173/73 94 L 10/18/20 22:00 101 H 22 173/72 93 L 10/18/20 21:45 103 H 22 171/76 93 L 10/18/20 21:14 101 H 22 181/92 94 L 10/18/20 21:00 101 H 22 181/83 93 L 10/18/20 20:30 86 18 191/87 95 10/18/20 20:00 93 20 209/87 94 L 10/18/20 19:45 94 20 207/90 95 10/18/20 18:37 98.9 F 99 24 220/85 96 Intake and Output 10/18/20 10/19/20 10/19/20 22:59 06:59 14:59 Output Total 200 Balance -200 Output: Urine 200 Other: Voiding Method Toilet Toilet # Voids 1 3 1 Weight 81.647 kg 88.2 kg - Constitutional General appearance: Present: average body habitus, cooperative, no acute distress - EENT Eyes: Present: anicteric sclerae, EOMI, PERRLA, normal appearance ENT: Present: hearing grossly normal, normal oropharynx Ears: bilateral: normal - Neck Neck: Present: normal ROM. Absent: lymphadenopathy, rigidity, thyromegaly Carotids: negative: bruit present Thyroid: bilateral: normal size, negative: enlarged, nodule - Respiratory Respiratory: bilateral: CTA, negative: rales, rhonchi, wheezing - Cardiovascular Rhythm: regular Heart sounds: normal: S1, S2 Abnormal Heart Sounds: Absent: systolic murmur, diastolic murmur - Gastrointestinal General gastrointestinal: Present: normal bowel sounds, soft. Absent: distended, organomegaly, tenderness - Genitourinary Genitourinary Comment(s): deferred - Integumentary Integumentary: Present: normal turgor. Absent: jaundiced, rash, ulcer - Neurologic Neurologic: Present: CNII-XII intact. Absent: focal deficits - Musculoskeletal Musculoskeletal: Present: gait normal, strength equal bilaterally - Psychiatric Psychiatric: Present: A&O x's 3, appropriate affect, intact judgment & insight Results CBC & Chem 7: 10/18/20 21:23 10/18/20 21:23 Labs: Abnormal Lab Results - Last 24 Hours (Table) 10/18/20 10/18/20 Range/Units 21:23 21:23 WBC 11.1 H (3.8-10.6) k/uL Neutrophils # 8.3 H (1.3-7.7) k/uL BUN 22 H (7-17) mg/dL Glucose 137 H (74-99) mg/dL Thrombosis Risk Factor Assmnt - Choose All That Apply Any of the Below Risk Factors Present?: Yes Each Factor Represents 1 point: Abnormal pulmonary function (COPD), Obesity (BMI >25) Other Risk Factors: No Other congenital or acquired thrombophilia - If yes, enter type in comment: No Thrombosis Risk Factor Assessment Total Risk Factor Score: 2 Thrombosis Risk Factor Assessment Level: Low Risk Assessment and Plan Assessment: 1. Acute on chronic diastolic CHF - Cardiology on board and recommending to continue with IV diuretics in form of Lasix 40 mg IV twice a day; monitor strict BALAJI's, daily weights, renal function and electrolytes; continue with low-salt/fluid restricted diet 2. Hypertensive urgency - Patient restarted on home dose of losartan, amlodipine and clonidine; cardiology added Coreg 6.25 mg twice a day; we will increase home hydralazine from 25 mg 3 times a day up to 50 mg 3 times a day; monitor blood pressure closely 3. Mild leukocytosis; possibly reactive; no signs of acute infection; we will monitor CBC 4. Hyperlipidemia; continue with home dose of atorvastatin 20 mg by mouth daily at bedtime 5. Asthma/COPD; not in exacerbation 6. Hypothyroidism; levothyroxine 125 MCG daily 7. Depression; Zoloft 25 mg daily at bedtime along with home dose of Xanax DVT prophylaxis; subcu Lovenox/SCD CODE STATUS; full code
[2020-10-19] MEDS: hydrALAZINE HCL 50 MG TAB PO SCH ×2 (15:28→19:44)
[2020-10-19] MEDS: SERTRALINE 50 MG TAB PO SCH (15:28)
[2020-10-19] MEDS: BUDESONIDE 3 MG PO SCH ×2 (17:15→20:23)
[2020-10-19] MEDS: MIRTAZAPINE 15 MG TAB PO SCH (19:43)
[2020-10-19] MEDS: amLODIPine 10 MG TAB PO SCH (19:43)
[2020-10-19] MEDS: CLOTRIMAZOLE/BETAMETH 1-0.05% CREAM 45 GM TUBE TOPICAL SCH (19:44)
[2020-10-19] MEDS: POTASSIUM CHLORIDE ER 10 MEQ TAB.ER.PRT PO SCH (19:44)
[2020-10-19] MEDS ORDERED: SERTRALINE 25 MG TAB PO SCH (21:00)
[2020-10-19] MEDS ORDERED: cloNIDine HCL 0.1 MG TAB PO SCH (21:00)
[2020-10-20] MEDS: LEVOTHYROXINE 125 MCG TAB PO SCH (06:33)
[2020-10-20] MEDS: carvediloL 6.25 MG TAB PO SCH ×2 (06:33→17:25)
[2020-10-20 08:38] LABS: Basophils % (A) 0 %; Eosinophils # (A) 0.2 k/uL (0-0.7); Eosinophils % (A) 2 %; HCT 43.5 % (34.0-46.0); HGB 14.5 gm/dL (11.4-16.0); Lymphocytes # (A) 2.1 k/uL (1.0-4.8); Lymphocytes % (A) 23 %; MCH 31.3 pg (25.0-35.0); MCHC 33.3 g/dL (31.0-37.0); MCV 94.1 fL (80.0-100.0); Mean Platelet Volume 7.1; Monocytes # (A) 0.5 k/uL (0-1.0); Monocytes % (A) 6 %; Neutrophils % (A) 67 %; Platelet Count 255 k/uL (150-450); RBC 4.62 m/uL (3.80-5.40); RDW 14.6 % (11.5-15.5); WBC 8.9 k/uL (3.8-10.6)
[2020-10-20 08:58] LABS: Calcium 9.4 mg/dL (8.4-10.2); Potassium 3.6 mmol/L (3.5-5.1)
[2020-10-20] MEDS: PANTOPRAZOLE 40 MG TABLET PO SCH ×2 (09:03→20:04)
[2020-10-20] MEDS: SERTRALINE 50 MG TAB PO SCH (09:03)
[2020-10-20] MEDS: hydrALAZINE HCL 50 MG TAB PO SCH ×3 (09:03→20:04)
[2020-10-20] MEDS: ATORVASTATIN 20 MG TAB PO SCH (09:03)
[2020-10-20] MEDS: POTASSIUM CHLORIDE ER 10 MEQ TAB.ER.PRT PO SCH ×2 (09:03→20:04)
[2020-10-20] MEDS: FUROSEMIDE 10 MG/ML 4 ML VIAL IV SCH ×2 (09:04→09:06)
[2020-10-20] MEDS: LOSARTAN 50 MG TAB PO SCH (09:04)
[2020-10-20] MEDS: LACTOBACILLUS ACIDOPH & BULGAR 1 EACH PACKET PO SCH ×2 (09:04→09:07)
--- NOTE | 2020-10-20 11:56 | P.PN ---
Subjective HISTORY OF PRESENTING ILLNESS This is a pleasant 80-year-old female past medical history significant for asthma, COPD, hypertension, sleep apnea, hyperlipidemia. And she follows in the office with Dr. Newsome. We have been asked to see in consultation for hypertensive urgency, shortness of breath. Patient is seen and examined at bed side, resting in chair, no acute distress. She stated that yesterday while watching TV she started to get a 5/10 constant, dull headache. She knew her blood pressure was high. She called her son to take her to the emergency department. She endorses intermittent shortness of breath and lightheadedness when this occurred. At home her blood pressure usually runs around 130-140 systolic. She recently saw her PCP on 10/17 and was prescribed hydralazine 25 mg three times a day. She has been taking all her medications as prescribed. Her recently . She did hurt her back while taking care of her and has continuously been taking Advil three times a day. She also endorses symptoms of orthopnea and lower extremity edema, she has been sleeping in a recliner. She does have a history of sleep apnea but stated she could not tolerate her CPAP at night. On arrival to emergency department BP 220/85 Hr 99, maintaining oxygen saturations on room air. Patient was given 10 mg of IV hydralazine 3, droperidol 1.5 mg IV, clonidine 2 mg by mouth and admitted to cardiac floor. Patient denies history of diabetes, MO or stroke. TTE 10/19: mild concentric left ventricular hypertrophy, EF 50-55%, LV size is normal, RV size is normal, LA size is normal, RA size is normal. 10/20/20: Patient seen and examined this morning, resting comfortably in chair. Endorses intermittent shortness of breath when walking to bathroom, but states her breathing has improved from yesterday. Denies chest pain, palpitations, headache, dizziness, lightheadedness. Laboratory data reviewed, sodium 140, potassium 3.6, renal function stable creatinine 0.84. Blood pressure improving- Vital signs blood pressure 150/70 heart rate 78, oxygen saturation 93% in room air, afebrile. DIAGNOSTICS Most recent Echo in 2018 showed a ejection fraction of 50-55% Patient had a cardiac catheterization in 2018 which showed mild nonobstructive CAD involving proximal LAD with a ejection fraction of 60%. EKG reveals sinus rhythm with PVCs, and left axis deviation. Telemetry tracings indicate patient in sinus rhythm heart rate in the 80s. Current cardiac medications include simvastatin 40 mg daily, hydralazine 25 mg 3 times a day, losartan 100 mg daily, amlodipine 10 mg nightly, clonidine 0.3 mg nightly, Lasix 40 mg by mouth daily. PHYSICAL EXAMINATION CONSTITUTIONAL: No apparent distress. HEENT: Head is normocephalic. Pupils are equal, round. Sclerae anicteric. Mucous membranes of the mouth are moist. No JVD. No carotid bruit. CHEST EXAMINATION: Lungs diminished bibasilar, other lung khalil clear to auscultation. No chest wall tenderness is noted on palpation or with deep breathing. HEART EXAMINATION: Tachycardic rate and rhythm. S1, S2 heard. No murmurs, gallops or rub. ABDOMEN: Soft, nontender. Positive bowel sounds. SKIN: intact, no wounds EXTREMITIES: 2+ peripheral pulses, non- pitting bilateral lower extremity edema and + calf tenderness. NEUROLOGIC EXAMINATION: Patient is awake, alert and oriented x3. ASSESSMENT -Hypertensive Urgency -History of coronary artery disease -History of Hypertension -History of hyperlipidemia PLAN -Patient with improvement in blood pressure and volume status. Will discontinue IV lasix and transition to PO Lasix 40mg daily. -Patient on clonidine 0.3mg nightly at home. Clonidine could be causing rebound hypertension in patient. Will transition to clonidine 0.2mg BID and patient will follow up in cardiology clinic for further titration of dose. -Continue losartan 100mg daily, amlodipine 10mg nightly, carvedilol 6.25mg BID and statin -If continues to be stable, will most likely discharge tomorrow. Nurse Practitioner note has been reviewed, I agree with a documented findings and plan of care. Patient was seen and examined. Objective - Vital Signs Vital signs: Vital Signs Temp 98.2 F 10/20/20 04:05 Pulse 78 10/20/20 04:05 Resp 18 10/20/20 04:05 BP 175/82 10/20/20 04:05 Pulse Ox 93 L 10/20/20 04:05 Intake & Output 10/19/20 10/19/20 10/20/20 06:59 18:59 06:59 Intake Total 458 Output Total 200 Balance 258 Weight 88.2 kg Intake: Oral 458 Output: Urine 200 Other: Voiding Method Toilet Toilet Toilet # Voids 3 6 - Labs CBC & Chem 7: 10/20/20 06:51 10/20/20 06:51
[2020-10-20] MEDS: CLOTRIMAZOLE/BETAMETH 1-0.05% CREAM 45 GM TUBE TOPICAL SCH ×2 (12:16→20:05)
[2020-10-20] MEDS: BUDESONIDE 3 MG PO SCH ×3 (12:17→20:05)
--- NOTE | 2020-10-20 14:19 | P.PN ---
Progress Note - Text Progress Note Date: 10/20/20 Interval History: Patient was seen today for psychiatric follow-up regarding patient's mood and anxiety. Patient was started on Zoloft and Remeron yesterday. Patient appeared to have a brighter affect today and acknowledges bid writer. She states that she is feeling "a lot better" and states that she had the "best sleep I have had in a long time". She claims that she sees the value in taking her medications and wants to continue on the same dose. She is denying any anxiety at this time. She appeared to be more future oriented and spoke about her family today. She claims that her appetite has been mildly improving today. At this time patient denies any suicidal or homical ideations, intent or plan. Patient denies any auditory, visual hallucinations and denies any paranoia or delusions. Patient denies any side effects from the medications and has been compliant with meds. Mental Status Exam: General Appearance: Patient appears to be sitting in a chair, stated age is alert, pleasant, and cooperative. Patient appears to have fair hygiene and grooming wearing hospital gown with fair eye contact. Behavior: Patient is calmly lying in bed without any agitated behavior. Appears to be anxious at times. Speech: Patient's speech is fluent and nonpressured. Mood/Affect: Patient reports their mood is "good", affect is congruent and appropriate. Suicidality/Homicidality: Patient denies having any suicidal or homicidal ideation intent or plan. Perceptions: Patient denies any visual hallucinations and denies any auditory hallucinations Though content/process: There is no evidence of any delusional thought content and thought process is linear and goal-directed. More future oriented today Memory and concentration: AOX3, grossly intact for the purposes of this session Judgment and insight: Fair Assessment Adjustment disorder with mixed anxiety and depressed mood Plan: -At this time patient DOES NOT meet criteria for inpatient psychiatric admission. -Delirium precautions recommended with patient including - avoiding use of narcotics and HOT WALKER sedatives, limit anticholinergic medications when possible, frequent re-orientation, minimize use of restraints, open window shades during the day and close them at night -Would recommend the following medication changes/additions: Continue with Zoloft to 50 mg daily for mood/anxiety. Continue with Remeron 15 mg daily at bedtime for mood/anxiety/insomnia. Can continue with current dose of Xanax when necessary. Spoke with patient in detail about the potential harm for Xanax and the dose should not be increased further due to risk of falls or confusion or abuse. -research worker encyclopedia to provide patient with outpatient mental health/psychiatry resources for appropriate follow up upon discharge -At this time psychiatry will sign off. -Please contact with any questions.
--- NOTE | 2020-10-20 16:40 | P.PN ---
Subjective Progress Note Date: 10/20/20 Principal diagnosis: Acute on chronic diastolic CHF Hypertensive urgency Anxiety/depression 80-year-old female past medical history significant for asthma, COPD, hypertension, sleep apnea, hyperlipidemia. And she follows in the office with Dr. Newsome. We have been asked to see in consultation for hypertensive urgency, shortness of breath. Patient is seen and examined at bedside, resting in chair, no acute distress. She stated that yesterday while watching TV she started to get a 5/10 constant, dull headache. She knew her blood pressure was high. She called her son to take her to the emergency department. She endorses intermittent shortness of breath and lightheadedness when this occurred. At home her blood pressure usually runs around 130-140 systolic. She recently saw her PCP on 10/17 and was prescribed hydralazine 25 mg three times a day. She has been taking all her medications as prescribed. Her recently . She did hurt her back while taking care of her and has continuously been taking Advil three times a day. She also endorses symptoms of orthopnea and lower extremity edema, she has been sleeping in a recliner. She does have a history of sleep apnea but stated she could not tolerate her CPAP at night. On arrival to emergency department BP 220/85 Hr 99, maintaining oxygen saturations on room air. Patient was given 10 mg of IV hydralazine 3, droperidol 1.5 mg IV, clonidine 2 mg by mouth and admitted to cardiac floor. 10/20/2020 Patient is seen and evaluated sitting up in bedside chair; denies any complaint of chest pain or shortness of breath; patient reports concerns about shortness of breath when ambulating to the bathroom but markedly improved since yesterday Vital signs are reviewed with stable blood pressure 175/82, pulse 78, respiration 18 Laboratory review shows sodium of 140, potassium 3.6, BUN/creatinine of 21/0.84 Cardiology on board and recommending to discontinue IV Lasix and transitioned to Lasix 40 mg by mouth daily; patient is currently taking clonidine 0.3 mg daily at bedtime which could be the reason for rebound hypertension; cardiology recommending to transition to clonidine 0.2 mg twice a day and follow-up with cardiology for further titration Patient remains on losartan 100 mg daily, amlodipine 10 mg daily at bedtime, Coreg 6.25 mg twice a day Patient has been evaluated by psychiatry and is started on Remeron 15 mg daily at bedtime for mood/anxiety/insomnia; Zoloft is increased to 50 mg daily Possible discharge in next 24 hours if remains stable Objective - Vital Signs Vital signs: Vital Signs Temp 98.3 F 10/20/20 08:00 Pulse 78 10/20/20 08:00 Resp 20 10/20/20 08:00 BP 150/70 10/20/20 08:00 Pulse Ox 92 L 10/20/20 08:00 Intake & Output 10/19/20 10/20/20 10/20/20 18:59 06:59 18:59 Intake Total 458 240 Output Total 200 400 Balance 258 -160 Weight 88 kg Intake: Oral 458 240 Output: Urine 200 400 Other: Voiding Method Toilet Toilet # Voids 6 - Exam - Constitutional General appearance: Present: average body habitus, cooperative, no acute distress - EENT Eyes: Present: anicteric sclerae, EOMI, PERRLA, normal appearance ENT: Present: hearing grossly normal, normal oropharynx Ears: bilateral: normal - Neck Neck: Present: normal ROM. Absent: lymphadenopathy, rigidity, thyromegaly Carotids: negative: bruit present Thyroid: bilateral: normal size, negative: enlarged, nodule - Respiratory Respiratory: bilateral: CTA, negative: rales, rhonchi, wheezing - Cardiovascular Rhythm: regular Heart sounds: normal: S1, S2 Abnormal Heart Sounds: Absent: systolic murmur, diastolic murmur - Gastrointestinal General gastrointestinal: Present: normal bowel sounds, soft. Absent: distended, organomegaly, tenderness - Genitourinary Genitourinary Comment(s): deferred - Integumentary Integumentary: Present: normal turgor. Absent: jaundiced, rash, ulcer - Neurologic Neurologic: Present: CNII-XII intact. Absent: focal deficits - Musculoskeletal Musculoskeletal: Present: gait normal, strength equal bilaterally - Psychiatric Psychiatric: Present: A&O x's 3, appropriate affect, intact judgment & insight - Labs CBC & Chem 7: 10/20/20 06:51 10/20/20 06:51 Labs: Abnormal Lab Results - Last 24 Hours (Table) 10/20/20 Range/Units 06:51 BUN 21 H (7-17) mg/dL Glucose 101 H (74-99) mg/dL Assessment and Plan Assessment: 1. Acute on chronic diastolic CHF - Cardiology on board and recommending to continue with IV diuretics in form of Lasix 40 mg IV twice a day; monitor strict BALAJI's, daily weights, renal function and electrolytes; continue with low-salt/fluid restricted diet 2. Hypertensive urgency - Patient restarted on home dose of losartan, amlodipine and clonidine; cardiology added Coreg 6.25 mg twice a day; we will increase home hydralazine from 25 mg 3 times a day up to 50 mg 3 times a day; monitor blood pressure closely 3. Mild leukocytosis; possibly reactive; no signs of acute infection; we will monitor CBC 4. Hyperlipidemia; continue with home dose of atorvastatin 20 mg by mouth daily at bedtime 5. Asthma/COPD; not in exacerbation 6. Hypothyroidism; levothyroxine 125 MCG daily 7. Depression; Zoloft 25 mg daily at bedtime along with home dose of Xanax DVT prophylaxis; subcu Lovenox/SCD CODE STATUS; full code
[2020-10-20] MEDS ORDERED: CALCIUM CARBONATE 500 MG CHEWABLE PO PRN (18:27)
[2020-10-20] MEDS: cloNIDine HCL 0.2 MG TAB PO SCH (20:04)
[2020-10-20] MEDS: MIRTAZAPINE 15 MG TAB PO SCH (20:04)
[2020-10-20] MEDS: amLODIPine 10 MG TAB PO SCH (20:04)
[2020-10-21] MEDS: carvediloL 6.25 MG TAB PO SCH ×2 (06:43→16:39)
[2020-10-21] MEDS: LEVOTHYROXINE 125 MCG TAB PO SCH (06:43)
[2020-10-21] MEDS: PANTOPRAZOLE 40 MG TABLET PO SCH ×2 (09:18→20:39)
[2020-10-21] MEDS: hydrALAZINE HCL 50 MG TAB PO SCH ×3 (09:18→20:41)
[2020-10-21] MEDS: SERTRALINE 50 MG TAB PO SCH (09:18)
[2020-10-21] MEDS: ATORVASTATIN 20 MG TAB PO SCH (09:18)
[2020-10-21] MEDS: LOSARTAN 50 MG TAB PO SCH (09:18)
[2020-10-21] MEDS: POTASSIUM CHLORIDE ER 10 MEQ TAB.ER.PRT PO SCH ×2 (09:18→20:39)
[2020-10-21] MEDS: cloNIDine HCL 0.2 MG TAB PO SCH ×2 (09:18→20:39)
[2020-10-21] MEDS: FUROSEMIDE 40 MG TAB PO SCH (09:18)
[2020-10-21] MEDS: LACTOBACILLUS ACIDOPH & BULGAR 1 EACH PACKET PO SCH (09:19)
[2020-10-21] MEDS: BUDESONIDE 3 MG PO SCH ×3 (09:25→20:13)
[2020-10-21 10:29] VITALS: RESP 18
[2020-10-21] MEDS: CLOTRIMAZOLE/BETAMETH 1-0.05% CREAM 45 GM TUBE TOPICAL SCH ×2 (16:39→20:40)
--- NOTE | 2020-10-21 16:51 | P.PN ---
Subjective Progress Note Date: 10/21/20 Principal diagnosis: Acute on chronic diastolic CHF Hypertensive urgency Anxiety/depression 80-year-old female past medical history significant for asthma, COPD, hypertension, sleep apnea, hyperlipidemia. And she follows in the office with Dr. Newsome. We have been asked to see in consultation for hypertensive urgency, shortness of breath. Patient is seen and examined at bedside, resting in chair, no acute distress. She stated that yesterday while watching TV she started to get a 5/10 constant, dull headache. She knew her blood pressure was high. She called her son to take her to the emergency department. She endorses intermittent shortness of breath and lightheadedness when this occurred. At home her blood pressure usually runs around 130-140 systolic. She recently saw her PCP on 10/17 and was prescribed hydralazine 25 mg three times a day. She has been taking all her medications as prescribed. Her recently . She did hurt her back while taking care of her and has continuously been taking Advil three times a day. She also endorses symptoms of orthopnea and lower extremity edema, she has been sleeping in a recliner. She does have a history of sleep apnea but stated she could not tolerate her CPAP at night. On arrival to emergency department BP 220/85 Hr 99, maintaining oxygen saturations on room air. Patient was given 10 mg of IV hydralazine 3, droperidol 1.5 mg IV, clonidine 2 mg by mouth and admitted to cardiac floor. 10/20/2020 Patient is seen and evaluated sitting up in bedside chair; denies any complaint of chest pain or shortness of breath; patient reports concerns about shortness of breath when ambulating to the bathroom but markedly improved since yesterday Vital signs are reviewed with stable blood pressure 175/82, pulse 78, respiration 18 Laboratory review shows sodium of 140, potassium 3.6, BUN/creatinine of 21/0.84 Cardiology on board and recommending to discontinue IV Lasix and transitioned to Lasix 40 mg by mouth daily; patient is currently taking clonidine 0.3 mg daily at bedtime which could be the reason for rebound hypertension; cardiology recommending to transition to clonidine 0.2 mg twice a day and follow-up with cardiology for further titration Patient remains on losartan 100 mg daily, amlodipine 10 mg daily at bedtime, Coreg 6.25 mg twice a day Patient has been evaluated by psychiatry and is started on Remeron 15 mg daily at bedtime for mood/anxiety/insomnia; Zoloft is increased to 50 mg daily Possible discharge in next 24 hours if remains stable 10/21/2020 Patient is seen and evaluated sitting up in bedside chair; reports she feels fine but did have rough morning when blood pressure was markedly elevated Vital signs are reviewed and blood pressure escalated up to 228/10 2 in the morning; currently 122/75 Patient's medications have been adjusted by cardiology but continues to have episodes of markedly elevated blood pressure; continue with all current medications and continued monitoring for another 24 hours; await cardiology to reevaluate and make further recommendations Objective - Vital Signs Vital signs: Vital Signs Temp 98.0 F 10/21/20 12:00 Pulse 74 10/21/20 14:00 Resp 18 10/21/20 14:00 BP 122/75 10/21/20 12:00 Pulse Ox 94 L 10/21/20 12:00 Intake & Output 10/20/20 10/21/20 10/21/20 18:59 06:59 18:59 Intake Total 720 960 Output Total 500 550 Balance 220 410 Weight 86.3 kg Intake: Oral 720 960 Output: Urine 500 550 Other: Voiding Method Toilet Toilet # Voids 1 - Exam - Constitutional General appearance: Present: average body habitus, cooperative, no acute distress - EENT Eyes: Present: anicteric sclerae, EOMI, PERRLA, normal appearance ENT: Present: hearing grossly normal, normal oropharynx Ears: bilateral: normal - Neck Neck: Present: normal ROM. Absent: lymphadenopathy, rigidity, thyromegaly Carotids: negative: bruit present Thyroid: bilateral: normal size, negative: enlarged, nodule - Respiratory Respiratory: bilateral: CTA, negative: rales, rhonchi, wheezing - Cardiovascular Rhythm: regular Heart sounds: normal: S1, S2 Abnormal Heart Sounds: Absent: systolic murmur, diastolic murmur - Gastrointestinal General gastrointestinal: Present: normal bowel sounds, soft. Absent: distended, organomegaly, tenderness - Genitourinary Genitourinary Comment(s): deferred - Integumentary Integumentary: Present: normal turgor. Absent: jaundiced, rash, ulcer - Neurologic Neurologic: Present: CNII-XII intact. Absent: focal deficits - Musculoskeletal Musculoskeletal: Present: gait normal, strength equal bilaterally - Psychiatric Psychiatric: Present: A&O x's 3, appropriate affect, intact judgment & insight - Labs CBC & Chem 7: 10/20/20 06:51 10/20/20 06:51 Assessment and Plan Assessment: 1. Acute on chronic diastolic CHF - Cardiology on board and recommending to continue with IV diuretics in form of Lasix 40 mg IV twice a day; monitor strict BALAJI's, daily weights, renal function and electrolytes; continue with low-salt/fluid restricted diet 2. Hypertensive urgency - Patient restarted on home dose of losartan, amlodipine and clonidine; cardiology added Coreg 6.25 mg twice a day; we will increase home hydralazine from 25 mg 3 times a day up to 50 mg 3 times a day; monitor blood pressure closely 3. Mild leukocytosis; possibly reactive; no signs of acute infection; we will monitor CBC 4. Hyperlipidemia; continue with home dose of atorvastatin 20 mg by mouth daily at bedtime 5. Asthma/COPD; not in exacerbation 6. Hypothyroidism; levothyroxine 125 MCG daily 7. Depression; Zoloft 25 mg daily at bedtime along with home dose of Xanax DVT prophylaxis; subcu Lovenox/SCD CODE STATUS; full code
--- NOTE | 2020-10-21 19:22 | P.PN ---
Subjective HISTORY OF PRESENTING ILLNESS This is a pleasant 80-year-old female past medical history significant for asthma, COPD, hypertension, sleep apnea, hyperlipidemia. And she follows in the office with Dr. Newsome. We have been asked to see in consultation for hypertensive urgency, shortness of breath. Patient is seen and examined at [facility], resting in chair, no acute distress. She stated that yesterday while watching TV she started to get a 5/10 constant, dull headache. She knew her blood pressure was high. She called her son to take her to the emergency department. She endorses intermittent shortness of breath and lightheadedness when this occurred. At home her blood pressure usually runs around 130-140 systolic. She recently saw her PCP on 10/17 and was prescribed hydralazine 25 mg three times a day. She has been taking all her medications as prescribed. Her recently . She did hurt her back while taking care of her and has continuously been taking Advil three times a day. She also endorses symptoms of orthopnea and lower extremity edema, she has been sleeping in a recliner. She does have a history of sleep apnea but stated she could not tolerate her CPAP at night. On arrival to emergency department BP 220/85 Hr 99, maintaining oxygen saturations on room air. Patient was given 10 mg of IV hydralazine 3, droperidol 1.5 mg IV, clonidine 2 mg by mouth and admitted to cardiac floor. Patient denies history of diabetes, [place] or stroke. TTE 10/19: mild concentric left ventricular hypertrophy, EF 50-55%, LV size is normal, RV size is normal, LA size is normal, RA size is normal. 10/20/20: Patient seen and examined this morning, resting comfortably in chair. Endorses intermittent shortness of breath when walking to bathroom, but states her breathing has improved from yesterday. Denies chest pain, palpitations, headache, dizziness, lightheadedness. Laboratory data reviewed, sodium 140, potassium 3.6, renal function stable creatinine 0.84. Blood pressure improving- Vital signs blood pressure 150/70 heart rate 78, oxygen saturation 93% in room air, afebrile. 10/21/20 Patient seen and examined. No chest pain, pressure, SOB. Patient with isolated BP 228/102 this morning however next BP of 112/74. May be some rebound from Catapres. Lasix was changed to 40mg PO daily today. DIAGNOSTICS Most recent Echo in 2018 showed a ejection fraction of 50-55% Patient had a cardiac catheterization in 2018 which showed mild nonobstructive CAD involving proximal LAD with a ejection fraction of 60%. EKG reveals sinus rhythm with PVCs, and left axis deviation. Telemetry tracings indicate patient in sinus rhythm heart rate in the 80s. Current cardiac medications include simvastatin 40 mg daily, hydralazine 25 mg 3 times a day, losartan 100 mg daily, amlodipine 10 mg nightly, clonidine 0.3 mg nightly, Lasix 40 mg by mouth daily. PHYSICAL EXAMINATION CONSTITUTIONAL: No apparent distress. HEENT: Head is normocephalic. Pupils are equal, round. Sclerae anicteric. Mucous membranes of the mouth are moist. No JVD. No carotid bruit. CHEST EXAMINATION: Lungs diminished bibasilar, other lung khalil clear to auscultation. No chest wall tenderness is noted on palpation or with deep breathing. HEART EXAMINATION: Tachycardic rate and rhythm. S1, S2 heard. No murmurs, gallops or rub. ABDOMEN: Soft, nontender. Positive bowel sounds. SKIN: intact, no wounds EXTREMITIES: 2+ peripheral pulses, non- pitting bilateral lower extremity edema and + calf tenderness. NEUROLOGIC EXAMINATION: Patient is awake, alert and oriented x3. ASSESSMENT -Hypertensive Urgency -History of coronary artery disease -History of Hypertension -History of hyperlipidemia -Acute on chronic diastolic heart failure PLAN -Patient with improvement in blood pressure and volume status. Continue maintenence Lasix going home. -Catapres may be causing some rebound hypertension in the morning. -Continue losartan 100mg daily, amlodipine 10mg nightly -Increase Coreg to 12.5mg bid -If continues to be stable, will most likely discharge tomorrow. Objective - Vital Signs Vital signs: Vital Signs Temp 98.5 F 10/21/20 16:00 Pulse 76 10/21/20 16:00 Resp 18 10/21/20 16:00 BP 178/79 10/21/20 16:00 Pulse Ox 94 L 10/21/20 16:00 Intake & Output 10/21/20 10/21/20 10/22/20 06:59 18:59 06:59 Intake Total 1080 Output Total 550 Balance 530 Weight 86.3 kg Intake: Oral 1080 Output: Urine 550 Other: Voiding Method Toilet Toilet # Voids 1 - Labs CBC & Chem 7: 10/20/20 06:51 10/20/20 06:51
[2020-10-21] MEDS: MIRTAZAPINE 15 MG TAB PO SCH (20:39)
[2020-10-21] MEDS: amLODIPine 10 MG TAB PO SCH (20:39)
[2020-10-22] MEDS: carvediloL 12.5 MG TAB PO SCH ×2 (06:24→15:55)
[2020-10-22] MEDS: LEVOTHYROXINE 125 MCG TAB PO SCH (06:24)
[2020-10-22] MEDS: PANTOPRAZOLE 40 MG TABLET PO SCH (08:27)
[2020-10-22] MEDS: cloNIDine HCL 0.2 MG TAB PO SCH (08:27)
[2020-10-22] MEDS: POTASSIUM CHLORIDE ER 10 MEQ TAB.ER.PRT PO SCH (08:27)
[2020-10-22] MEDS: hydrALAZINE HCL 50 MG TAB PO SCH ×2 (08:27→15:55)
[2020-10-22] MEDS: ATORVASTATIN 20 MG TAB PO SCH (08:27)
[2020-10-22] MEDS: SERTRALINE 50 MG TAB PO SCH (08:27)
[2020-10-22] MEDS: FUROSEMIDE 40 MG TAB PO SCH (08:27)
[2020-10-22] MEDS: LOSARTAN 50 MG TAB PO SCH (08:27)
[2020-10-22] MEDS: LACTOBACILLUS ACIDOPH & BULGAR 1 EACH PACKET PO SCH (08:28)
[2020-10-22] MEDS: BUDESONIDE 3 MG PO SCH ×2 (08:28→16:05)
[2020-10-22] MEDS: CLOTRIMAZOLE/BETAMETH 1-0.05% CREAM 45 GM TUBE TOPICAL SCH (08:29)
[2020-10-22 09:08] LABS: Potassium 3.8 mmol/L (3.5-5.1)
[2020-10-22 14:53] VITALS: BP 116/61; PULSE 66; TEMP 98.3
--- NOTE | 2020-10-22 19:47 | P.PN ---
Subjective HISTORY OF PRESENTING ILLNESS This is a pleasant 80-year-old female past medical history significant for asthma, COPD, hypertension, sleep apnea, hyperlipidemia. And she follows in the office with Dr. Newsome. We have been asked to see in consultation for hypertensive urgency, shortness of breath. Patient is seen and examined at [facility], resting in chair, no acute distress. She stated that yesterday while watching TV she started to get a 5/10 constant, dull headache. She knew her blood pressure was high. She called her son to take her to the emergency department. She endorses intermittent shortness of breath and lightheadedness when this occurred. At home her blood pressure usually runs around 130-140 systolic. She recently saw her PCP on 10/17 and was prescribed hydralazine 25 mg three times a day. She has been taking all her medications as prescribed. Her recently . She did hurt her back while taking care of her and has continuously been taking Advil three times a day. She also endorses symptoms of orthopnea and lower extremity edema, she has been sleeping in a recliner. She does have a history of sleep apnea but stated she could not tolerate her CPAP at night. On arrival to emergency department BP 220/85 Hr 99, maintaining oxygen saturations on room air. Patient was given 10 mg of IV hydralazine 3, droperidol 1.5 mg IV, clonidine 2 mg by mouth and admitted to cardiac floor. Patient denies history of diabetes, [place] or stroke. TTE 10/19: mild concentric left ventricular hypertrophy, EF 50-55%, LV size is normal, RV size is normal, LA size is normal, RA size is normal. 10/22/20 Patient seen and examined. No chest pain, pressure, SOB. BP's better controlled over last 24 hrs. DIAGNOSTICS Most recent Echo in 2018 showed a ejection fraction of 50-55% Patient had a cardiac catheterization in 2018 which showed mild nonobstructive CAD involving proximal LAD with a ejection fraction of 60%. EKG reveals sinus rhythm with PVCs, and left axis deviation. Telemetry tracings indicate patient in sinus rhythm heart rate in the 80s. Current cardiac medications include simvastatin 40 mg daily, hydralazine 25 mg 3 times a day, losartan 100 mg daily, amlodipine 10 mg nightly, clonidine 0.3 mg nightly, Lasix 40 mg by mouth daily. PHYSICAL EXAMINATION CONSTITUTIONAL: No apparent distress. HEENT: Head is normocephalic. Pupils are equal, round. Sclerae anicteric. Mucous membranes of the mouth are moist. No JVD. No carotid bruit. CHEST EXAMINATION: Lungs diminished bibasilar, other lung khalil clear to auscultation. No chest wall tenderness is noted on palpation or with deep breathing. HEART EXAMINATION: Tachycardic rate and rhythm. S1, S2 heard. No murmurs, gallops or rub. ABDOMEN: Soft, nontender. Positive bowel sounds. SKIN: intact, no wounds EXTREMITIES: 2+ peripheral pulses, non- pitting bilateral lower extremity edema and + calf tenderness. NEUROLOGIC EXAMINATION: Patient is awake, alert and oriented x3. ASSESSMENT -Hypertensive Urgency -History of coronary artery disease -History of Hypertension -History of hyperlipidemia -Acute on chronic diastolic heart failure PLAN -Patient with improvement in blood pressure and volume status. Continue maintene nce Lasix going home. -Patient appears stable for DC home today. Objective - Vital Signs Vital signs: Vital Signs Temp 98.3 F 10/22/20 12:00 Pulse 66 10/22/20 14:00 Resp 18 10/22/20 14:00 BP 116/61 10/22/20 12:00 Pulse Ox 94 L 10/22/20 12:00 Intake & Output 10/22/20 10/22/20 10/23/20 06:59 18:59 06:59 Intake Total 720 Output Total 400 Balance -400 720 Weight 86.9 kg 86.9 kg Intake: Oral 720 Output: Urine 400 Other: Voiding Method Toilet Toilet # Voids 1 - Labs CBC & Chem 7: 10/20/20 06:51 10/22/20 08:31 Labs: Abnormal Lab Results - Last 24 Hours (Table) 10/22/20 Range/Units 08:31 BUN 28 H (7-17) mg/dL Glucose 206 H (74-99) mg/dL
--- NOTE | 2020-11-01 08:09 | P.DS ---
Providers Date of admission: 10/18/20 22:07 Expected date of discharge: 10/22/20 Attending physician: Victoria Khan Consults: 10/18/20 22:03 Consult Physician Urgent Consulting Provider: [facility] Consult Reason/Comments: Hypertensive urgency Do you want consulting provider notified?: Yes Consult Physician Urgent Consulting Provider: Carlos Alanis Consult Reason/Comments: Anxiety, grief reaction Do you want consulting provider notified?: Yes 10/19/20 13:14 Consult Physician Routine Consulting Provider: Ying Pearson Consult Reason/Comments: knew the pt Do you want consulting provider notified?: Yes Primary care physician: Ying [facility] Course: 80-year-old female past medical history significant for asthma, COPD, hypertension, sleep apnea, hyperlipidemia. And she follows in the office with Dr. Newsome. We have been asked to see in consultation for hypertensive urgency, shortness of breath. Patient is seen and examined at bedside, resting in chair, no acute distress. She stated that yesterday while watching TV she started to get a 5/10 constant, dull headache. She knew her blood pressure was high. She called her son to take her to the emergency department. She endorses intermittent shortness of breath and lightheadedness when this occurred. At home her blood pressure usually runs around 130-140 systolic. She recently saw her PCP on 10/17 and was prescribed hydralazine 25 mg three times a day. She has been taking all her medications as prescribed. Her recently . She did hurt her back while taking care of her and has continuously been taking Advil three times a day. She also endorses symptoms of orthopnea and lower extremity edema, she has been sleeping in a recliner. She does have a history of sleep apnea but stated she could not tolerate her CPAP at night. On arrival to emergency department BP 220/85 Hr 99, maintaining oxygen saturations on room air. Patient was given 10 mg of IV hydralazine 3, droperidol 1.5 mg IV, clonidine 2 mg by mouth and admitted to cardiac floor. Patient denies history of diabetes, [place] or stroke. TTE 10/19: mild concentric left ventricular hypertrophy, EF 50-55%, LV size is normal, RV size is normal, LA size is normal, RA size is normal. 3/5/21: Patient seen and examined this morning, resting comfortably in chair. Endorses intermittent shortness of breath when walking to bathroom, but states her breathing has improved from yesterday. Denies chest pain, palpitations, headache, dizziness, lightheadedness. Laboratory data reviewed, sodium 140, p otassium 3.6, renal function stable creatinine 0.84. Blood pressure improving- Vital signs blood pressure 150/70 heart rate 78, oxygen saturation 93% in room air, afebrile. DIAGNOSTICS Most recent Echo in 2018 showed a ejection fraction of 50-55% Patient had a cardiac catheterization in 2018 which showed mild nonobstructive CAD involving proximal LAD with a ejection fraction of 60%. EKG reveals sinus rhythm with PVCs, and left axis deviation. Telemetry tracings indicate patient in sinus rhythm heart rate in the 80s. Current cardiac medications include simvastatin 40 mg daily, hydralazine 25 mg 3 times a day, losartan 100 mg daily, amlodipine 10 mg nightly, clonidine 0.3 mg nightly, Lasix 40 mg by mouth daily. ASSESSMENT -Hypertensive Urgency -History of coronary artery disease -History of Hypertension -History of hyperlipidemia PLAN -Patient with improvement in blood pressure and volume status. Will discontinue IV lasix and transition to PO Lasix 40mg daily. -Patient on clonidine 0.3mg nightly at home. Clonidine could be causing rebound hypertension in patient. Will transition to clonidine 0.2mg BID and patient will follow up in cardiology clinic for further titration of dose. -Continue losartan 100mg daily, amlodipine 10mg nightly, carvedilol 6.25mg BID and statin -If continues to be stable, will most likely discharge tomorrow. Plan - Discharge Summary Discharge Rx Participant: No New Discharge Prescriptions: New cloNIDine HCL [Catapres] 0.2 mg PO BID 30 Days #60 tab carvediloL [Coreg*] 12.5 mg PO BID-W/MEALS #60 tab Mirtazapine [Remeron] 15 mg PO HS #30 tab Sertraline [Zoloft] 50 mg PO DAILY #30 tab Continue Pantoprazole Sodium [Protonix] 40 mg PO BID Potassium Chloride ER [K-Dur 10] 10 meq PO BID Furosemide [Lasix] 40 mg PO DAILY Colon Probiotic 1 tab PO DAILY Simvastatin 40 mg PO DAILY hydrALAZINE HCL [Apresoline] 25 mg PO TID Losartan Potassium 100 mg PO DAILY Levothyroxine Sodium [Synthroid] 125 mcg PO DAILY amLODIPine [Norvasc] 10 mg PO HS Budesonide [Budesonide EC] 3 mg PO TID ALPRAZolam [Xanax] 0.25 mg PO BID PRN PRN Reason: Anxiety Discontinued cloNIDine HCL 0.3 mg PO HS Turmeric Root Extract [Turmeric] 500 mg PO BID Echinacea 1,000 mg PO BID Sertraline [Zoloft] 25 mg PO HS Clotrimazole/Betameth Cream [Lotrisone] 1 applic TOPICAL BID Elderberry Fruit and Flower [Black Elderberry 575 mg Cap] 1 cap PO DAILY No Action predniSONE [Deltasone] 20 mg PO BID #10 tab Doxycycline Hyclate 100 mg PO BID 1 Days #20 tab Discharge Medication List Pantoprazole Sodium [Protonix] 40 mg PO BID 03/19/18 [History] Furosemide [Lasix] 40 mg PO DAILY 12/16/18 [History] Potassium Chloride ER [K-Dur 10] 10 meq PO BID 12/16/18 [History] ALPRAZolam [Xanax] 0.25 mg PO BID PRN 10/18/20 [History] Budesonide [Budesonide EC] 3 mg PO TID 10/18/20 [History] Colon Probiotic 1 tab PO DAILY 10/18/20 [History] Levothyroxine Sodium [Synthroid] 125 mcg PO DAILY 10/18/20 [History] Losartan Potassium 100 mg PO DAILY 10/18/20 [History] Simvastatin 40 mg PO DAILY 10/18/20 [History] amLODIPine [Norvasc] 10 mg PO HS 10/18/20 [History] hydrALAZINE HCL [Apresoline] 25 mg PO TID 10/18/20 [History] cloNIDine HCL [Catapres] 0.2 mg PO BID 30 Days #60 tab 10/20/20 [Rx] Mirtazapine [Remeron] 15 mg PO HS #30 tab 10/22/20 [Rx] Sertraline [Zoloft] 50 mg PO DAILY #30 tab 10/22/20 [Rx] carvediloL [Coreg*] 12.5 mg PO BID-W/MEALS #60 tab 10/22/20 [Rx] Doxycycline Hyclate 100 mg PO BID 1 Days #20 tab 10/29/20 [Rx] predniSONE [Deltasone] 20 mg PO BID #10 tab 10/29/20 [Rx] Follow up Appointment(s)/Referral(s): Ying Pearson MD [Primary Care Provider] - 1-2 days (Please call when office is open to set up appointment ) Hans Rudolph MD [STAFF PHYSICIAN] - 2 Weeks (Please call when office is open to set up appointment) Patient Instructions/Handouts: Hypertensive Crisis (DC), Hypertensive Crisis (GEN), Anxiety (GEN) Discharge Disposition: HOME SELF-CARE
== END 2020-10-22 17:02 | disposition home or self-care (01) | DRG 304 ==
LOC: EC 18:35 → UNDOADMOB 22:07 → 3SCARD 22:07
PROVIDERS: ADMIT Hospitalist; ATTEND Hospitalist
DX: I16.0 Hypertensive urgency (principal); I50.33 Acute on chronic diastolic (congestive) heart failure; I11.0 Hypertensive heart disease with heart failure; F43.23 Adjustment disorder with mixed anxiety and depressed mood; J44.9 Chronic obstructive pulmonary disease, unspecified; M06.9 Rheumatoid arthritis, unspecified; I49.3 Ventricular premature depolarization; I25.10 Atherosclerotic heart disease of native coronary artery without angina pectoris; G47.00 Insomnia, unspecified; E78.5 Hyperlipidemia, unspecified; E03.9 Hypothyroidism, unspecified; Z63.4 Disappearance and death of family member; F41.9 Anxiety disorder, unspecified; K57.90 Diverticulosis of intestine, part unspecified, without perforation or abscess without bleeding; Z60.2 Problems related to living alone; Z88.4 Allergy status to anesthetic agent; Z88.1 Allergy status to other antibiotic agents; Z88.5 Allergy status to narcotic agent; Z88.2 Allergy status to sulfonamides; E89.0 Postprocedural hypothyroidism; Z20.822 Contact with and (suspected) exposure to COVID-19; Z79.890 Hormone replacement therapy; Z79.899 Other long term (current) drug therapy; G47.33 Obstructive sleep apnea (adult) (pediatric); I83.93 Asymptomatic varicose veins of bilateral lower extremities; Z80.1 Family history of malignant neoplasm of trachea, bronchus and lung; Z82.49 Family history of ischemic heart disease and other diseases of the circulatory system; D72.829 Elevated white blood cell count, unspecified; Z82.5 Family history of asthma and other chronic lower respiratory diseases; Z83.3 Family history of diabetes mellitus; Z85.820 Personal history of malignant melanoma of skin; Z85.828 Personal history of other malignant neoplasm of skin; Z86.711 Personal history of pulmonary embolism; Z87.891 Personal history of nicotine dependence; Z90.710 Acquired absence of both cervix and uterus; Z90.79 Acquired absence of other genital organ(s); Z90.721 Acquired absence of ovaries, unilateral; Z89.021 Acquired absence of right finger(s); Z99.89 Dependence on other enabling machines and devices; Z96.652 Presence of left artificial knee joint; Z90.49 Acquired absence of other specified parts of digestive tract
CPT/HCPCS: 36415; 70450; 80048; 80053; 83880; 84484; 85025; 87635; 93005; 93306; 96374; 96375; 96376; 99285

== ENCOUNTER 2020-10-29 10:56 | Emergency (ER) | payer MEDICARE ==
[2020-10-29 11:01] VITALS: TEMP 97.9
[2020-10-29] MEDS ORDERED: IPRATROPIUM-ALBUTEROL 3 ML NEB INHALATION STA (11:54)
[2020-10-29 12:06] LABS: Basophils # (A) 0.1 k/uL (0-0.2); Basophils % (A) 0 %; Eosinophils # (A) 0.3 k/uL (0-0.7); Eosinophils % (A) 2 %; HCT 38.1 % (34.0-46.0); HGB 12.2 gm/dL (11.4-16.0); Lymphocytes # (A) 1.9 k/uL (1.0-4.8); Lymphocytes % (A) 17 %; MCH 30.5 pg (25.0-35.0); MCHC 32.1 g/dL (31.0-37.0); Mean Platelet Volume 8.7; Monocytes # (A) 0.5 k/uL (0-1.0); Monocytes % (A) 5 %; Neutrophils # (A) 8.2 k/uL (1.3-7.7); Neutrophils % (A) 75 %; Platelet Count 329 k/uL (150-450); RBC 4.01 m/uL (3.80-5.40); RDW 14.8 % (11.5-15.5)
[2020-10-29 12:08] LABS: Albumin 3.7 g/dL (3.5-5.0); Total Bilirubin 0.5 mg/dL (0.2-1.3); Total Protein 6.2 g/dL (6.3-8.2)
--- NOTE | 2020-10-29 12:24 | ED ---
SOB HPI - General Chief Complaint: Shortness of Breath Stated Complaint: sob Time Seen by Provider: 10/29/20 11:00 Source: patient Mode of arrival: wheelchair Limitations: no limitations - History of Present Illness Initial Comments: Pt is an 80-year-old female past history of COPD, asthma, PE who presents to the emergency room with reported shortness of breath. Patient states that she had surgery last week and was intubated for skin cancer removal. States that this morning she awoke feeling more short of breath than normal. Admits to nasal congestion and a nonproductive cough. Has been taking Mucinex without improvement in her symptoms. She does have a nebulizer at home which she only uses as needed. States that she did use once earlier today. Patient is not dependent on oxygen. Follows with Dr. Pearson. Denies any fevers or chills. H ospitalized 2 weeks ago for uncontrolled hypertension therefore does have possible sick contacts. She denies any chest pain. No lower trauma swelling. Admits to history of PE after surgery. Patient not on any anticoagulant patient at this time. No abdominal pain. No other alleviating, precipitating or modifying factors - Related Data Home Medications Medication Instructions Recorded Confirmed Pantoprazole Sodium [Protonix] 40 mg PO BID 03/19/18 10/29/20 Furosemide [Lasix] 40 mg PO DAILY 12/16/18 10/29/20 Potassium Chloride ER [K-Dur 10] 10 meq PO BID 12/16/18 10/29/20 ALPRAZolam [Xanax] 0.25 mg PO BID PRN 10/18/20 10/29/20 Budesonide [Budesonide EC] 3 mg PO TID 10/18/20 10/29/20 Colon Probiotic 1 tab PO DAILY 10/18/20 10/29/20 Levothyroxine Sodium [Synthroid] 125 mcg PO DAILY 10/18/20 10/29/20 Losartan Potassium 100 mg PO DAILY 10/18/20 10/29/20 Simvastatin 40 mg PO DAILY 10/18/20 10/29/20 amLODIPine [Norvasc] 10 mg PO HS 10/18/20 10/29/20 hydrALAZINE HCL [Apresoline] 25 mg PO TID 10/18/20 10/29/20 Previous Rx's Medication Instructions Recorded cloNIDine HCL [Catapres] 0.2 mg PO BID 30 Days #60 tab 10/20/20 Mirtazapine [Remeron] 15 mg PO HS #30 tab 10/22/20 Sertraline [Zoloft] 50 mg PO DAILY #30 tab 10/22/20 carvediloL [Coreg*] 12.5 mg PO BID-W/MEALS #60 tab 10/22/20 Doxycycline Hyclate 100 mg PO BID 1 Days #20 tab 10/29/20 predniSONE [Deltasone] 20 mg PO BID #10 tab 10/29/20 Allergies Allergy/AdvReac Type Severity Reaction Status Date / Time adhesive Allergy SKIN Verified 10/29/20 11:01 REDDENS & BLISTERS- PAPER TAPE OKAY azithromycin [From Zithromax] Allergy Nausea & Verified 10/29/20 11:01 Vomiting meperidine HCl [From Demerol] Allergy Nausea & Verified 10/29/20 11:01 Vomiting morphine Allergy Nausea & Verified 10/29/20 11:01 Vomiting Sulfa (Sulfonamide Allergy Nausea & Verified 10/29/20 11:01 Antibiotics) Vomiting aspirin AdvReac STOMACH Verified 10/29/20 11:01 HERRERA anesthesia Allergy facial/arms/hands Uncoded 10/29/20 11:01 swelling,skin"turns beet red", nausea DISSOLVING SUTURES Allergy INFECTION Uncoded 10/29/20 11:01 Review of Systems ROS Statement: Those systems with pertinent positive or pertinent negative responses have been documented in the HPI. ROS Other: All systems not noted in ROS Statement are negative. Past Medical History Past Medical History: Asthma, Cancer, COPD, GERD/Reflux, Hyperlipidemia, Hypertension, Osteoarthritis (OA), Pneumonia, Pulmonary Embolus (PE), Rheumatoid Arthritis (RA), Sleep Apnea/CPAP/BIPAP, Thyroid Disorder Additional Past Medical History / Comment(s): COPD/asthma, chronic cough, hypothyroidism, history of basal cell carcinoma of the skin resected, history of melanoma of the skin involving the back, resected, history of diverticulosis/div erticulitis, history of fibrocystic disease, obstructive sleep apnea can sleep with the CPAP, varicose veins in lower extremities, hypothyroidism History of Any Multi-Drug Resistant Organisms: None Reported Past Surgical History: Bladder Surgery, Bowel Resection, Cholecystectomy, Heart Catheterization, Hernia Repair, Hysterectomy, Joint Replacement, Orthopedic Surgery Additional Past Surgical History / Comment(s): LEFT KNEE REPLACED, PARTIAL THYROIDECTOMY,HIATAL HERNIA REPAIR 07/2013, ABDOMINAL HERNIA REPAIR,MULTIPLE SK IN LESIONS-PT STATED HAS HAS BASAL,SQUAMOUS AND MELANOMA SKIN CA ( NECK,RT UPPER & LOWER THIGH,LT ARM,RT ARM, face, back-melanoma)SKIN GRAFTS TO VINOD.LEGS-LT EAR- LT MIDDLE FINGER,ACHILLES TENDON surgery. RT OVARY 1 TUBE REMOVED, SIGMOID RESECTION D/T BOWEL OBSTRUCTION,RT LITLE FINGER AMP, Past Anesthesia/Blood Transfusion Reactions: Previous Problems w/ Anesthesia, Motion Sickness, Postoperative Nausea & Vomiting (PONV) Additional Past Anesthesia/Blood Transfusion Reaction / Comment(s): STATES "HAS HAD SWELLING TO FACE,HANDS,ARMS AND SKIN TURNS "BEET RED"WITH ANESTHESIA-with IV sedation. states no problems with last surgery at [facility] 01/2017-anesthesia records on chart Past Psychological History: Anxiety Smoking Status: Never smoker Past Alcohol Use History: None Reported Past Drug Use History: None Reported - Past Family History Mother Family Medical History: Diabetes Mellitus Additional Family Medical History / Comment(s): HEART PROBLEMS Sister(s) Family Medical History: Diabetes Mellitus, Myocardial Infarction (HI) Additional Family Medical History / Comment(s): EMPHYSEMA Father Family Medical History: Cancer Additional Family Medical History / Comment(s): LUNG CA. General Exam Limitations: no limitations General appearance: alert, in no apparent distress Head exam: Present: atraumatic, normocephalic, normal inspection Eye exam: Present: normal appearance, PERRL, EOMI. Absent: scleral icterus, conjunctival injection, periorbital swelling ENT exam: Present: normal exam, mucous membranes moist Neck exam: Present: normal inspection. Absent: tenderness, meningismus, lymphadenopathy Respiratory exam: Present: normal lung sounds bilaterally. Absent: respiratory distress, wheezes, rales, rhonchi, stridor Cardiovascular Exam: Present: regular rate, normal rhythm, normal heart sounds. Absent: systolic murmur, diastolic murmur, rubs, gallop, clicks GI/Abdominal exam: Present: soft, normal bowel sounds. Absent: distended, tenderness, guarding, rebound, rigid Extremities exam: Present: normal inspection, full ROM, normal capillary refill. Absent: tenderness, pedal edema, joint swelling, calf tenderness Back exam: Present: normal inspection Neurological exam: Present: alert, oriented X3, CN II-XII intact Psychiatric exam: Present: normal affect, normal mood Skin exam: Present: warm, dry, intact, normal color. Absent: rash Course Vital Signs 10/29/20 10/29/20 10/29/20 10:57 12:34 12:41 Temperature 97.9 F Pulse Rate 61 55 L 58 L Respiratory 30 H 18 18 Rate Blood Pressure 177/66 O2 Sat by Pulse 94 L Oximetry 10/29/20 12:49 Temperature Pulse Rate 54 L Respiratory 20 Rate Blood Pressure 157/71 O2 Sat by Pulse 98 Oximetry Medical Decision Making - Medical Decision Making Upon arrival patient was placed into room 3. A thorough history and physical exam was performed. IV is established. Laboratories are conducted. Patient did go for CT of her chest that she is not a low-risk candidate. Laboratory studies reveal a lactic acid 2.6. Troponin is negative. Covid negative. CT fails to demonstrate a central pulmonary embolism. Small pericardial effusion slightly increased. I did discuss results with the patient. Patient is requesting to go home at this time. She does have follow-up appointment with Dr. Romero on Friday. I will attempt to treat the patient with prednisone at this time. She is to use her breathing treatments every 4 hours. Patient will also be given a prescription for doxycycline to start taking if her symptoms dont improve in one week. Patient agreed to this. Return to the emergency room for any new or worsening symptoms per patient was discharged home in stable condition - Lab Data Result diagrams: 10/29/20 11:45 10/29/20 11:45 Lab Results 10/29/20 10/29/20 10/29/20 Range/Units 11:45 11:45 11:45 WBC 11.0 H (3.8-10.6) k/uL RBC 4.01 (3.80-5.40) m/uL Hgb 12.2 (11.4-16.0) gm/dL Hct 38.1 (34.0-46.0) % MCV 95.0 (80.0-100.0) fL MCH 30.5 (25.0-35.0) pg MCHC 32.1 (31.0-37.0) g/dL RDW 14.8 (11.5-15.5) % Plt Count 329 (150-450) k/uL MPV 8.7 Neutrophils % 75 % Lymphocytes % 17 % Monocytes % 5 % Eosinophils % 2 % Basophils % 0 % Neutrophils # 8.2 H (1.3-7.7) k/uL Lymphocytes # 1.9 (1.0-4.8) k/uL Monocytes # 0.5 (0-1.0) k/uL Eosinophils # 0.3 (0-0.7) k/uL Basophils # 0.1 (0-0.2) k/uL PT 9.7 (9.0-12.0) sec INR 0.9 (<1.2) APTT 19.7 L (22.0-30.0) sec Sodium 140 (137-145) mmol/L Potassium 4.2 (3.5-5.1) mmol/L Chloride 106 (98-107) mmol/L Carbon Dioxide 22 (22-30) mmol/L Anion Gap 12 mmol/L BUN 24 H (7-17) mg/dL Creatinine 0.83 (0.52-1.04) mg/dL Est GFR (CKD-EPI)AfAm 77 (>60 ml/min/1.73 sqM) Est GFR (CKD-EPI)NonAf 67 (>60 ml/min/1.73 sqM) Glucose 140 H (74-99) mg/dL Lactic Ac Sepsis Rflx Plasma Lactic Acid Tyron (0.7-2.0) mmol/L Calcium 9.0 (8.4-10.2) mg/dL Magnesium 2.0 (1.6-2.3) mg/dL Total Bilirubin 0.5 (0.2-1.3) mg/dL AST 24 (14-36) U/L ALT 10 (4-34) U/L Alkaline Phosphatase 47 (38-126) U/L Troponin I (0.000-0.034) ng/mL NT-Pro-B Natriuret Pep pg/mL Total Protein 6.2 L (6.3-8.2) g/dL Albumin 3.7 (3.5-5.0) g/dL Influenza Type A (PCR) (Not Detectd) Influenza Type B (PCR) (Not Detectd) RSV (PCR) (Not Detectd) SARS-CoV-2 (PCR) (Not Detectd) 10/29/20 10/29/20 10/29/20 Range/Units 11:45 11:45 11:45 WBC (3.8-10.6) k/uL RBC (3.80-5.40) m/uL Hgb (11.4-16.0) gm/dL Hct (34.0-46.0) % MCV (80.0-100.0) fL MCH (25.0-35.0) pg MCHC (31.0-37.0) g/dL RDW (11.5-15.5) % Plt Count (150-450) k/uL MPV Neutrophils % % Lymphocytes % % Monocytes % % Eosinophils % % Basophils % % Neutrophils # (1.3-7.7) k/uL Lymphocytes # (1.0-4.8) k/uL Monocytes # (0-1.0) k/uL Eosinophils # (0-0.7) k/uL Basophils # (0-0.2) k/uL PT (9.0-12.0) sec INR (<1.2) APTT (22.0-30.0) sec Sodium (137-145) mmol/L Potassium (3.5-5.1) mmol/L Chloride (98-107) mmol/L Carbon Dioxide (22-30) mmol/L Anion Gap mmol/L BUN (7-17) mg/dL Creatinine (0.52-1.04) mg/dL Est GFR (CKD-EPI)AfAm (>60 ml/min/1.73 sqM) Est GFR (CKD-EPI)NonAf (>60 ml/min/1.73 sqM) Glucose (74-99) mg/dL Lactic Ac Sepsis Rflx Plasma Lactic Acid Tyron 2.6 H* (0.7-2.0) mmol/L Calcium (8.4-10.2) mg/dL Magnesium (1.6-2.3) mg/dL Total Bilirubin (0.2-1.3) mg/dL AST (14-36) U/L ALT (4-34) U/L Alkaline Phosphatase (38-126) U/L Troponin I <0.012 (0.000-0.034) ng/mL NT-Pro-B Natriuret Pep 2210 pg/mL Total Protein (6.3-8.2) g/dL Albumin (3.5-5.0) g/dL Influenza Type A (PCR) (Not Detectd) Influenza Type B (PCR) (Not Detectd) RSV (PCR) (Not Detectd) SARS-CoV-2 (PCR) (Not Detectd) 10/29/20 10/29/20 Range/Units 12:20 12:21 WBC (3.8-10.6) k/uL RBC (3.80-5.40) m/uL Hgb (11.4-16.0) gm/dL Hct (34.0-46.0) % MCV (80.0-100.0) fL MCH (25.0-35.0) pg MCHC (31.0-37.0) g/dL RDW (11.5-15.5) % Plt Count (150-450) k/uL MPV Neutrophils % % Lymphocytes % % Monocytes % % Eosinophils % % Basophils % % Neutrophils # (1.3-7.7) k/uL Lymphocytes # (1.0-4.8) k/uL Monocytes # (0-1.0) k/uL Eosinophils # (0-0.7) k/uL Basophils # (0-0.2) k/uL PT (9.0-12.0) sec INR (<1.2) APTT (22.0-30.0) sec Sodium (137-145) mmol/L Potassium (3.5-5.1) mmol/L Chloride (98-107) mmol/L Carbon Dioxide (22-30) mmol/L Anion Gap mmol/L BUN (7-17) mg/dL Creatinine (0.52-1.04) mg/dL Est GFR (CKD-EPI)AfAm (>60 ml/min/1.73 sqM) Est GFR (CKD-EPI)NonAf (>60 ml/min/1.73 sqM) Glucose (74-99) mg/dL Lactic Ac Sepsis Rflx Y Plasma Lactic Acid Tyron (0.7-2.0) mmol/L Calcium (8.4-10.2) mg/dL Magnesium (1.6-2.3) mg/dL Total Bilirubin (0.2-1.3) mg/dL AST (14-36) U/L ALT (4-34) U/L Alkaline Phosphatase (38-126) U/L Troponin I (0.000-0.034) ng/mL NT-Pro-B Natriuret Pep pg/mL Total Protein (6.3-8.2) g/dL Albumin (3.5-5.0) g/dL Influenza Type A (PCR) Not Detected (Not Detectd) Influenza Type B (PCR) Not Detected (Not Detectd) RSV (PCR) Not Detected (Not Detectd) SARS-CoV-2 (PCR) Not Detected (Not Detectd) - EKG Data EKG Comments: EKG demonstrates sinus bradycardia with PVCs. Rate of 54. ID interval 158. QRS 100. QTC of 441. No acute ST segment elevations or depressions Disposition Clinical Impression: Shortness of breath, Pulmonary hypertension, COPD (chronic obstructive pulmonary disease), Respiratory insufficiency Disposition: HOME SELF-CARE Condition: Stable Instructions (If sedation given, give patient instructions): Upper Respiratory Infection (ED) Additional Instructions: Please follow up with Dr. Pearson on Friday at your scheduled appointment. Use your breathing treatments every 4 hours. Return to the ED for any new or worsening symptoms. Prescriptions: predniSONE [Deltasone] 20 mg PO BID #10 tab Doxycycline Hyclate 100 mg PO BID 1 Days #20 tab Is patient prescribed a controlled substance at d/c from ED?: No Referrals: Ying Pearson MD [Primary Care Provider] - 1-2 days Time of Disposition: 14:07
[2020-10-29 12:28] LABS: Potassium 4.2 mmol/L (3.5-5.1)
[2020-10-29 12:35] LABS: INR 0.9 (<1.2); Prothrombin Time 9.7 sec (9.0-12.0)
[2020-10-29 12:37] LABS: Partial Thromboplastin Time 19.7 sec (22.0-30.0)
[2020-10-29 12:49] VITALS: BP 157/71; PULSE 54; RESP 20
--- NOTE | 2020-10-29 13:27 | CT ---
EXAMINATION TYPE: CT chest angio for PE DATE OF EXAM: 10/29/2020 COMPARISON: 03/19/2018 HISTORY: 80-year-old female with shortness of breath, Trouble breathing, recent surgery (skin cancer spots removed) TECHNIQUE: Contiguous axial scanning of the chest performed with IV Contrast, patient injected with 1 00, wasted 23 ml mL of Isovue 370. Coronal/sagittal MIP reconstructions performed. CT DLP: 382.2 mGycm Automated exposure control for dose reduction was used. FINDINGS: Heart remains enlarged. No flattening of the interventricular septum. Mild reflux of contrast into th e IVC. Small pericardial effusion slightly increased, laterally measuring up to 1.6 cm versus 1.1 cm, previously. LAD and circumflex coronary calcifications are present. Mild to moderate atherosclerotic arch calcifications with conventional branching anatomy. Moderate pr ostatic calcification centimeter of the descending thoracic aorta. Large caliber to the main right and left pulmonary arteries and 3.3 and 2.9 cm, respectively, suggest ing underlying pulmonary arterial hypertension. There is excessive breathing motion throughout the en tire scan causing significant limitations in assessment for pulmonary emboli. No large central or def inite lobar branch embolus is seen. Many of the segmental and more distal arterial branches are nondi agnostic. No thoracic lymphadenopathy by CT size criteria. Extensive breathing motion limits assessment of the lung parenchyma. Suggestion of some strandy atele ctasis in the lower lungs. Tiny hiatal hernia. Ectatic upper abdominal aorta at 2.8 cm. Bones: DISH within the lower thoracic spine. IMPRESSION: 1. SEVERELY DEGRADED EXAM. THE PATIENT WAS BREATHING THROUGH THE SCAN. NO DEFINITE CENTRAL OR LOBAR B RANCH EMBOLUS. MANY OF THE SEGMENTAL AND MORE DISTAL ARTERIAL BRANCHES ARE NONDIAGNOSTIC AND EMBOLI I N THESE LOCATIONS CANNOT BE EXCLUDED ON THE BASIS OF THIS EXAM. CONSIDER SHORT INTERVAL FOLLOW-UP IF PERSISTENT CLINICAL CONCERN. 2. SMALL PERICARDIAL EFFUSION SLIGHTLY INCREASED. 3. AGAIN, UNDERLYING PULMONARY ARTERIAL HYPERTENSION IS SUGGESTED. CONSIDER FURTHER WORKUP.
[2020-10-29] MEDS ORDERED: methylPREDNISolone SOD SUCCI 125 MG/2 ML VIAL IV STA (13:58)
[2020-10-29] MEDS ORDERED: predniSONE 20 MG TAB PO STA (14:07)
== END 2020-10-29 14:50 | disposition home or self-care (01) ==
LOC: EC 10:56
DX: J44.9 Chronic obstructive pulmonary disease, unspecified (principal); I27.20 Pulmonary hypertension, unspecified; F41.9 Anxiety disorder, unspecified; K21.9 Gastro-esophageal reflux disease without esophagitis; E78.5 Hyperlipidemia, unspecified; I10 Essential (primary) hypertension; M06.9 Rheumatoid arthritis, unspecified; E03.9 Hypothyroidism, unspecified; G47.33 Obstructive sleep apnea (adult) (pediatric); Z79.890 Hormone replacement therapy; Z79.899 Other long term (current) drug therapy; Z88.1 Allergy status to other antibiotic agents; Z88.2 Allergy status to sulfonamides; Z88.5 Allergy status to narcotic agent; Z88.8 Allergy status to other drugs, medicaments and biological substances; Z91.048 Other nonmedicinal substance allergy status; Z85.828 Personal history of other malignant neoplasm of skin; Z90.49 Acquired absence of other specified parts of digestive tract; Z90.710 Acquired absence of both cervix and uterus; Z95.5 Presence of coronary angioplasty implant and graft; Z96.652 Presence of left artificial knee joint; Z80.1 Family history of malignant neoplasm of trachea, bronchus and lung
CPT/HCPCS: 36415; 94640; 93005; 83880; 80053; 83605; 83735; 84484; 85025; 85610; 85730; 87636; 71275; 99285; J7512; Q9967

== ENCOUNTER → 2020-11-23 | Outpatient (CLI) | payer MEDICARE ==
[2020-11-23 22:10] LABS: African American GFR (CKD) 61.2 (60.0-200.0); Anion Gap 4.1 mmol/L (4.00-12.00); Calcium 9.1 mg/dL (8.7-10.3); Carbon Dioxide 31.9 mmol/L (21.6-31.8); Magnesium 2.3 mg/dL (1.5-2.4); Non-African American GFR(CKD) 52.8 (60.0-200.0); Potassium 5.6 mmol/L (3.5-5.5)
== END | disposition home or self-care (01) ==
LOC: LABWHC1 10:24
PROVIDERS: ATTEND Nurse Practitioner Adult Health
DX: I10 Essential (primary) hypertension (principal)
CPT/HCPCS: 36415; 80048; 83735

== ENCOUNTER 2021-05-08 00:05 | Emergency (ER) | payer MEDICARE ==
[2021-05-08 00:15] VITALS: TEMP 99.8
[2021-05-08] MEDS ORDERED: HYDROmorphone 1 MG/ML 1 ML SYRINGE IVP STA ×2 (00:20→01:56)
--- NOTE | 2021-05-08 00:49 | XR ---
EXAMINATION TYPE: XR lumbar spine 2 or 3V DATE OF EXAM: 05/08/2021 COMPARISON: NONE HISTORY: Back pain TECHNIQUE: 3 views FINDINGS: Lumbar vertebra have normal alignment. Posterior elements are intact. There is osteopenia. There is no significant compression fracture. Sacroiliac joints appear intact. IMPRESSION: No acute abnormality. Osteopenia.
[2021-05-08] MEDS ORDERED: ONDANSETRON 4 MG/2 ML VIAL IVP STA (00:50)
--- NOTE | 2021-05-08 00:58 | ED ---
Back Pain HPI - General Chief Complaint: Back Pain/Injury Stated Complaint: Back Pain Time Seen by Provider: 05/08/21 00:16 Source: patient, EMS, RN notes reviewed Limitations: no limitations - History of Present Illness Initial Comments: Patient is an 81-year-old female that presents to the emergency department via EMS for chronic back pain. She notes that she is scheduled to have a epidural injection to help. She notes that she cannot wait any longer and came in for symptomatic control. Patient states that she has chronic high blood pressure and takes several medications. She notes that she does have very bad anxiety also. She notes that she has taken over at home medications as prescribed. She notes that she gets radicular symptoms into her left upper thigh. She denied any injury or trauma. She was otherwise in no apparent distress. She denied chest pain shortness of breath headache nausea vomiting diarrhea constipation fever fatigue chills. - Related Data Home Medications Medication Instructions Recorded Confirmed Pantoprazole Sodium [Protonix] 40 mg PO BID 03/19/18 10/29/20 Furosemide [Lasix] 40 mg PO DAILY 12/16/18 10/29/20 Potassium Chloride ER [K-Dur 10] 10 meq PO BID 12/16/18 10/29/20 ALPRAZolam [Xanax] 0.25 mg PO BID PRN 10/18/20 10/29/20 Budesonide [Budesonide EC] 3 mg PO TID 10/18/20 10/29/20 Colon Probiotic 1 tab PO DAILY 10/18/20 10/29/20 Levothyroxine Sodium [Synthroid] 125 mcg PO DAILY 10/18/20 10/29/20 Losartan Potassium 100 mg PO DAILY 10/18/20 10/29/20 Simvastatin 40 mg PO DAILY 10/18/20 10/29/20 amLODIPine [Norvasc] 10 mg PO HS 10/18/20 10/29/20 hydrALAZINE HCL [Apresoline] 25 mg PO TID 10/18/20 10/29/20 Previous Rx's Medication Instructions Recorded cloNIDine HCL [Catapres] 0.2 mg PO BID 30 Days #60 tab 10/20/20 Mirtazapine [Remeron] 15 mg PO HS #30 tab 10/22/20 Sertraline [Zoloft] 50 mg PO DAILY #30 tab 03/07/21 carvediloL [Coreg*] 12.5 mg PO BID-W/MEALS #60 tab 10/22/20 Doxycycline Hyclate 100 mg PO BID 1 Days #20 tab 10/29/20 predniSONE [Deltasone] 20 mg PO BID #10 tab 10/29/20 Allergies Allergy/AdvReac Type Severity Reaction Status Date / Time adhesive Allergy SKIN Verified 10/29/20 11:01 REDDENS & BLISTERS- PAPER TAPE OKAY azithromycin [From Zithromax] Allergy Nausea & Verified 10/29/20 11:01 Vomiting meperidine HCl [From Demerol] Allergy Nausea & Verified 10/29/20 11:01 Vomiting morphine Allergy Nausea & Verified 10/29/20 11:01 Vomiting Sulfa (Sulfonamide Allergy Nausea & Verified 10/29/20 11:01 Antibiotics) Vomiting aspirin AdvReac STOMACH Verified 10/29/20 11:01 HERRERA anesthesia Allergy facial/arms/hands Uncoded 10/29/20 11:01 swelling,skin"turns beet red", nausea DISSOLVING SUTURES Allergy INFECTION Uncoded 10/29/20 11:01 Review of Systems ROS Statement: Those systems with pertinent positive or pertinent negative responses have been documented in the HPI. ROS Other: All systems not noted in ROS Statement are negative. Past Medical History Past Medical History: Asthma, Cancer, COPD, GERD/Reflux, Hyperlipidemia, Hypertension, Osteoarthritis (OA), Pneumonia, Pulmonary Embolus (PE), Rheumatoid Arthritis (RA), Sleep Apnea/CPAP/BIPAP, Thyroid Disorder Additional Past Medical History / Comment(s): COPD/asthma, chronic cough, hypothyroidism, history of basal cell carcinoma of the skin resected, history of melanoma of the skin involving the back, resected, history of diverticulosis/diverticulitis, history of fibrocystic disease, obstructive sleep apnea can sleep with the CPAP, varicose veins in lower extremities, hypothyroidism History of Any Multi-Drug Resistant Organisms: None Reported Past Surgical History: Bladder Surgery, Bowel Resection, Cholecystectomy, Heart Catheterization, Hernia Repair, Hysterectomy, Joint Replacement, Orthopedic Surgery Additional Past Surgical History / Comment(s): LEFT KNEE REPLACED, PARTIAL THYROIDECTOMY,HIATAL HERNIA REPAIR 07/2013, ABDOMINAL HERNIA REPAIR,MULTIPLE SKIN LESIONS-PT STATED HAS HAS BASAL,SQUAMOUS AND MELANOMA SKIN CA ( NECK,RT UPPER & LOWER THIGH,LT ARM,RT ARM, face, back-melanoma)SKIN GRAFTS TO VINOD.LEGS- LT EAR-LT MIDDLE FINGER,ACHILLES TENDON surgery. RT OVARY 1 TUBE REMOVED, SIGMOID RESECTION D/T BOWEL OBSTRUCTION,RT LITLE FINGER AMP, Past Anesthesia/Blood Transfusion Reactions: Previous Problems w/ Anesthesia, Motion Sickness, Postoperative Nausea & Vomiting (PONV) Additional Past Anesthesia/Blood Transfusion Reaction / Comment(s): STATES "HAS HAD SWELLING TO FACE,HANDS,ARMS AND SKIN TURNS "BEET RED"WITH ANESTHESIA-with IV sedation. states no problems with last surgery at [facility] 01/2017-anesthesia records on chart Past Psychological History: Anxiety Smoking Status: Never smoker Past Alcohol Use History: None Reported Past Drug Use History: None Reported - Past Family History Mother Family Medical History: Diabetes Mellitus Additional Family Medical History / Comment(s): HEART PROBLEMS Sister(s) Family Medical History: Diabetes Mellitus, Myocardial Infarction ([place]) Additional Family Medical History / Comment(s): EMPHYSEMA Father Family Medical History: Cancer Additional Family Medical History / Comment(s): LUNG CA. General Exam Limitations: no limitations General appearance: alert, in no apparent distress, obese, other (Patient wears oxygen at home nasal cannula in place.) Head exam: Present: atraumatic, normocephalic, normal inspection Eye exam: Present: normal appearance, PERRL, EOMI. Absent: scleral icterus, conjunctival injection, periorbital swelling ENT exam: Present: normal exam, mucous membranes moist Neck exam: Present: normal inspection Respiratory exam: Present: normal lung sounds bilaterally. Absent: respiratory distress, wheezes, rales, rhonchi, stridor Cardiovascular Exam: Present: regular rate, normal rhythm, normal heart sounds. Absent: systolic murmur, diastolic murmur, rubs, gallop, clicks Extremities exam: Present: normal inspection, full ROM, normal capillary refill. Absent: tenderness, pedal edema, joint swelling, calf tenderness Back exam: Present: normal inspection, tenderness (Low back and left side) Neurological exam: Present: alert, oriented X3 Psychiatric exam: Present: normal affect, normal mood Skin exam: Present: warm, dry, intact, normal color. Absent: rash Course Vital Signs 05/08/21 00:07 Temperature 99.8 F H Pulse Rate 87 Respiratory 24 Rate Blood Pressure 190/98 O2 Sat by Pulse 96 Oximetry Medical Decision Making - Medical Decision Making 81-year-old female complaining of chronic low back pain requesting symptomatic control. 1 mg of Dilaudid, x-ray lumbar spine ordered. X-ray the lumbar spine shows no acute process, osteopenia. 4 mg Zofran for nausea given. Patient's blood pressure elevated but she denies any headache change in vision blurry vision dizziness lightheadedness. Case discussed with Dr. Abraham, patient can discharge home with follow-up to specialist as planned. - Radiology Data Radiology results: report reviewed, image reviewed Lumbar spine x-ray: No acute abnormality. Osteopenia. Disposition Clinical Impression: Sciatica Disposition: HOME SELF-CARE Condition: Stable Instructions (If sedation given, give patient instructions): Acute Low Back Pain (ED) Additional Instructions: Please return to the Emergency Department if symptoms worsen or any other concerns. Follow-up with primary care 1-2 days. Follow-up with specialist as planned tomorrow. Is patient prescribed a controlled substance at d/c from ED?: No Referrals: Ying Pearson MD [Primary Care Provider] - 1-2 days Time of Disposition: 01:57
[2021-05-08 02:48] VITALS: PULSE 84; RESP 20
[2021-05-08 02:49] VITALS: BP 174/84
== END 2021-05-08 02:49 | disposition home or self-care (01) ==
LOC: EC 00:05
DX: M54.42 Lumbago with sciatica, left side (principal); J44.9 Chronic obstructive pulmonary disease, unspecified; E78.5 Hyperlipidemia, unspecified; K21.9 Gastro-esophageal reflux disease without esophagitis; I10 Essential (primary) hypertension; M19.90 Unspecified osteoarthritis, unspecified site; M06.9 Rheumatoid arthritis, unspecified; G47.33 Obstructive sleep apnea (adult) (pediatric); F41.9 Anxiety disorder, unspecified; Z86.711 Personal history of pulmonary embolism; Z99.81 Dependence on supplemental oxygen
CPT/HCPCS: 72100; 96374; 96375; 96376; 99284

== ENCOUNTER 2021-06-03 19:30 | Inpatient (IN) | payer MEDICARE ==
--- NOTE | 2021-06-03 20:08 | ED ---
General Adult HPI - General Chief complaint: Weakness Stated complaint: Weakness,Nausea Time Seen by Provider: 06/03/21 20:06 Source: patient Mode of arrival: wheelchair Limitations: no limitations - History of Present Illness Initial comments: Patient presents to the ED with her daughter for evaluation. Patient states that she has been generally weak and nauseated for the past 4 days or so. Patient also states that she has had decreased appetite and has felt "hot and cold". Patient admits to having a chronic and unchanged cough. Patient also ad mits to having chronic and unchanged dyspnea. Patient denies measured fever, headache, focal numbness/weakness/neuro deficit, sore throat, nasal congestion, chest pain, hemoptysis, palpitations, syncope, abdominal pain, vomiting, diarrhea or constipation, bloody or melanotic stool, dysuria/hematuria/urinary frequency/urinary symptoms, leg or calf swelling or pain, or any other symptoms or complaints. - Related Data Home Medications Medication Instructions Recorded Confirmed Furosemide [Lasix] 40 mg PO BID 12/16/18 06/03/21 Colon Probiotic 1 tab PO DAILY 10/18/20 06/03/21 Levothyroxine Sodium [Synthroid] 125 mcg PO DAILY 10/18/20 06/03/21 Simvastatin 40 mg PO HS 10/18/20 06/03/21 amLODIPine [Norvasc] 10 mg PO DAILY 10/18/20 06/03/21 Albuterol Sulfate [Albuterol 2 puff PO RT-Q6H PRN 06/03/21 06/03/21 Sulfate Hfa] Clotrimazole/Betamethasone Dip 1 applic TOPICAL BID 06/03/21 06/03/21 [Lotrisone Cream] Elderberry Fruit and Flower [Black 1 cap PO BID 06/03/21 06/03/21 Elderberry 575 mg Cap] HYDROcodone/APAP 7.5-325MG [[place] 1 tab PO TID PRN 06/03/21 06/03/21 7.5-325] Sertraline [Zoloft] 50 mg PO HS 06/03/21 06/03/21 Spironolactone 25 mg PO DAILY 06/03/21 06/03/21 cloNIDine HCL [Catapres] 0.3 mg PO BID 06/03/21 06/03/21 diphenhydrAMINE HCL [Benadryl] 25 mg PO BID 06/03/21 06/03/21 hydrALAZINE HCL 50 mg PO TID 06/03/21 06/03/21 Previous Rx's Medication Instructions Recorded Mirtazapine [Remeron] 15 mg PO HS #30 tab 10/22/20 carvediloL [Coreg*] 12.5 mg PO BID-W/MEALS #60 tab 10/22/20 Allergies Allergy/AdvReac Type Severity Reaction Status Date / Time adhesive Allergy SKIN Verified 06/03/21 22:03 REDDENS & BLISTERS- PAPER TAPE OKAY azithromycin [From Zithromax] Allergy Nausea & Verified 06/03/21 22:03 Vomiting meperidine HCl [From Demerol] Allergy Nausea & Verified 06/03/21 22:03 Vomiting morphine Allergy Nausea & Verified 06/03/21 22:03 Vomiting Sulfa (Sulfonamide Allergy Nausea & Verified 06/03/21 22:03 Antibiotics) Vomiting aspirin AdvReac STOMACH Verified 06/03/21 22:03 HERRERA anesthesia Allergy facial/arms/hands Uncoded 06/03/21 22:03 swelling,skin"turns beet red", nausea DISSOLVING SUTURES Allergy INFECTION Uncoded 06/03/21 22:03 Review of Systems ROS Statement: Those systems with pertinent positive or pertinent negative responses have been documented in the HPI. ROS Other: All systems not noted in ROS Statement are negative. Past Medical History Past Medical History: Asthma, Cancer, COPD, GERD/Reflux, Hyperlipidemia, Hypertension, Osteoarthritis (OA), Pneumonia, Pulmonary Embolus (PE), Rheumatoid Arthritis (RA), Sleep Apnea/CPAP/BIPAP, Thyroid Disorder Additional Past Medical History / Comment(s): COPD/asthma, chronic cough, hypothyroidism, history of basal cell carcinoma of the skin resected, history of melanoma of the skin involving the back, resected, history of divertic ulosis/diverticulitis, history of fibrocystic disease, obstructive sleep apnea can sleep with the CPAP, varicose veins in lower extremities, hypothyroidism History of Any Multi-Drug Resistant Organisms: None Reported Past Surgical History: Bladder Surgery, Bowel Resection, Cholecystectomy, Heart Catheterization, Hernia Repair, Hysterectomy, Joint Replacement, Orthopedic Surgery Additional Past Surgical History / Comment(s): LEFT KNEE REPLACED, PARTIAL THYROIDECTOMY,HIATAL HERNIA REPAIR 07/2013, ABDOMINAL HERNIA REPAIR,MULTIPLE SKIN LESIONS-PT STATED HAS HAS BASAL,SQUAMOUS AND MELANOMA SKIN CA ( NECK,RT UPPER & LOWER THIGH,LT ARM,RT ARM, face, back-melanoma)SKIN GRAFTS TO VINOD.LEGS- LT EAR-LT MIDDLE FINGER,ACHILLES TENDON surgery. RT OVARY 1 TUBE REMOVED, SIGMOID RESECTION D/T BOWEL OBSTRUCTION,RT LITLE FINGER AMP, Past Anesthesia/Blood Transfusion Reactions: Previous Problems w/ Anesthesia, Motion Sickness, Postoperative Nausea & Vomiting (PONV) Additional Past Anesthesia/Blood Transfusion Reaction / Comment(s): STATES "HAS HAD SWELLING TO FACE,HANDS,ARMS AND SKIN TURNS "BEET RED"WITH ANESTHESIA-with IV sedation. states no problems with last surgery at [facility] 01/2017-anesthesia records on chart Past Psychological History: Anxiety Smoking Status: Never smoker Past Alcohol Use History: None Reported Past Drug Use History: None Reported - Past Family History Mother Family Medical History: Diabetes Mellitus Additional Family Medical History / Comment(s): HEART PROBLEMS Sister(s) Family Medical History: Diabetes Mellitus, Myocardial Infarction ([place]) Additional Family Medical History / Comment(s): EMPHYSEMA Father Family Medical History: Cancer Additional Family Medical History / Comment(s): LUNG CA. General Exam Limitations: no limitations General appearance: alert, in no apparent distress Head exam: Present: atraumatic, normocephalic Eye exam: Present: normal appearance, PERRL, EOMI ENT exam: Present: mucous membranes dry Neck exam: Present: other (Trachea is in midline) Respiratory exam: Present: normal lung sounds bilaterally. Absent: respiratory distress, wheezes, rales, rhonchi, stridor Cardiovascular Exam: Present: regular rate, normal rhythm, normal heart sounds, other (Normal radial pulses bilaterally) GI/Abdominal exam: Present: soft. Absent: distended, tenderness, guarding Extremities exam: Absent: tenderness, pedal edema, calf tenderness Back exam: Absent: CVA tenderness (R), CVA tenderness (L) Neurological exam: Present: alert, oriented X3, CN II-XII intact. Absent: motor sensory deficit Psychiatric exam: Present: normal affect, normal mood Skin exam: Present: warm, dry, intact, normal color Course Vital Signs 06/03/21 19:37 Temperature 98.9 F Pulse Rate 64 Respiratory 18 Rate Blood Pressure 174/74 O2 Sat by Pulse 94 L Oximetry - Reevaluation(s) Reevaluation #1: 10/17/21 22:20 Patient denies development of any new symptoms while in the ED. Patient remains alert and breathing comfortably. Patient and daughter are aware of the patient's test results, and they both agree with hospital admission at this time. 06/03/21 22:25 Case, H&P, test results and ED management thus far were discussed with Dr. Estes. She accepts hospital admission. She agrees with cardiology consultation. She does not recommend heparin anticoagulation at this time. She has no further recommendations at this time. EKG Findings - EKG Comments: EKG Findings:: Sinus bradycardia, ventricular rate of 53 bpm, no ectopy, normal FL and QRS intervals, normal QT interval, moderate voltage criteria for LVH, no ST or T-wave abnormality, no significant change when compared to 10/29/2020 EKG Medical Decision Making - Medical Decision Making I suspect that the patient is dehydrated given her dry oral mucosa and elevated renal function labs. Patient has been hydrated with IV fluids in the ED. Patient has a minimally elevated troponin, but she has no EKG changes and she denies having any chest pain or pressure. Patient was treated with a dose of oral aspirin in the ED. Dr. Estse has accepted hospital admission, and she does not recommend heparin anticoagulation at this time. Patient was also given oral and IV potassium repletion given her potassium level of 2.5. A cardiology consultation order has been placed. - Lab Data Result diagrams: 06/03/21 21:00 06/03/21 21:00 Lab Results 06/03/21 06/03/21 06/03/21 Range/Units 21:00 21:00 21:00 WBC 8.3 (3.8-10.6) k/uL RBC 4.22 (3.80-5.40) m/uL Hgb 13.3 (11.4-16.0) gm/dL Hct 38.4 (34.0-46.0) % MCV 91.1 (80.0-100.0) fL MCH 31.6 (25.0-35.0) pg MCHC 34.7 (31.0-37.0) g/dL RDW 15.3 (11.5-15.5) % Plt Count 271 (150-450) k/uL MPV 7.6 Neutrophils % 75 % Lymphocytes % 17 % Monocytes % 4 % Eosinophils % 2 % Basophils % 1 % Neutrophils # 6.2 (1.3-7.7) k/uL Lymphocytes # 1.4 (1.0-4.8) k/uL Monocytes # 0.4 (0-1.0) k/uL Eosinophils # 0.1 (0-0.7) k/uL Basophils # 0.0 (0-0.2) k/uL PT 10.4 (9.0-12.0) sec INR 1.0 (<1.2) APTT 22.8 (22.0-30.0) sec Sodium 133 L (137-145) mmol/L Potassium 2.5 L* (3.5-5.1) mmol/L Chloride 86 L (98-107) mmol/L Carbon Dioxide 36 H (22-30) mmol/L Anion Gap 11 mmol/L BUN 38 H (7-17) mg/dL Creatinine 1.65 H (0.52-1.04) mg/dL Est GFR (CKD-EPI)AfAm 33 (>60 ml/min/1.73 sqM) Est GFR (CKD-EPI)NonAf 29 (>60 ml/min/1.73 sqM) Glucose 166 H (74-99) mg/dL Plasma Lactic Acid Tyron (0.7-2.0) mmol/L Calcium 9.4 (8.4-10.2) mg/dL Magnesium 2.5 H (1.6-2.3) mg/dL Total Bilirubin 0.6 (0.2-1.3) mg/dL AST 22 (14-36) U/L ALT 13 (4-34) U/L Alkaline Phosphatase 94 (38-126) U/L Troponin I (0.000-0.034) ng/mL NT-Pro-B Natriuret Pep pg/mL Total Protein 6.6 (6.3-8.2) g/dL Albumin 4.0 (3.5-5.0) g/dL TSH 3.570 (0.465-4.680) mIU/L Coronavirus (PCR) (Not Detectd) 06/03/21 06/03/21 06/03/21 Range/Units 21:00 21:00 21:00 WBC (3.8-10.6) k/uL RBC (3.80-5.40) m/uL Hgb (11.4-16.0) gm/dL Hct (34.0-46.0) % MCV (80.0-100.0) fL MCH (25.0-35.0) pg MCHC (31.0-37.0) g/dL RDW (11.5-15.5) % Plt Count (150-450) k/uL MPV Neutrophils % % Lymphocytes % % Monocytes % % Eosinophils % % Basophils % % Neutrophils # (1.3-7.7) k/uL Lymphocytes # (1.0-4.8) k/uL Monocytes # (0-1.0) k/uL Eosinophils # (0-0.7) k/uL Basophils # (0-0.2) k/uL PT (9.0-12.0) sec INR (<1.2) APTT (22.0-30.0) sec Sodium (137-145) mmol/L Potassium (3.5-5.1) mmol/L Chloride (98-107) mmol/L Carbon Dioxide (22-30) mmol/L Anion Gap mmol/L BUN (7-17) mg/dL Creatinine (0.52-1.04) mg/dL Est GFR (CKD-EPI)AfAm (>60 ml/min/1.73 sqM) Est GFR (CKD-EPI)NonAf (>60 ml/min/1.73 sqM) Glucose (74-99) mg/dL Plasma Lactic Acid Tyron 1.5 (0.7-2.0) mmol/L Calcium (8.4-10.2) mg/dL Magnesium (1.6-2.3) mg/dL Total Bilirubin (0.2-1.3) mg/dL AST (14-36) U/L ALT (4-34) U/L Alkaline Phosphatase (38-126) U/L Troponin I 0.040 H* (0.000-0.034) ng/mL NT-Pro-B Natriuret Pep 313 pg/mL Total Protein (6.3-8.2) g/dL Albumin (3.5-5.0) g/dL TSH (0.465-4.680) mIU/L Coronavirus (PCR) (Not Detectd) 06/03/21 Range/Units 21:00 WBC (3.8-10.6) k/uL RBC (3.80-5.40) m/uL Hgb (11.4-16.0) gm/dL Hct (34.0-46.0) % MCV (80.0-100.0) fL MCH (25.0-35.0) pg MCHC (31.0-37.0) g/dL RDW (11.5-15.5) % Plt Count (150-450) k/uL MPV Neutrophils % % Lymphocytes % % Monocytes % % Eosinophils % % Basophils % % Neutrophils # (1.3-7.7) k/uL Lymphocytes # (1.0-4.8) k/uL Monocytes # (0-1.0) k/uL Eosinophils # (0-0.7) k/uL Basophils # (0-0.2) k/uL PT (9.0-12.0) sec INR (<1.2) APTT (22.0-30.0) sec Sodium (137-145) mmol/L Potassium (3.5-5.1) mmol/L Chloride (98-107) mmol/L Carbon Dioxide (22-30) mmol/L Anion Gap mmol/L BUN (7-17) mg/dL Creatinine (0.52-1.04) mg/dL Est GFR (CKD-EPI)AfAm (>60 ml/min/1.73 sqM) Est GFR (CKD-EPI)NonAf (>60 ml/min/1.73 sqM) Glucose (74-99) mg/dL Plasma Lactic Acid Tyron (0.7-2.0) mmol/L Calcium (8.4-10.2) mg/dL Magnesium (1.6-2.3) mg/dL Total Bilirubin (0.2-1.3) mg/dL AST (14-36) U/L ALT (4-34) U/L Alkaline Phosphatase (38-126) U/L Troponin I (0.000-0.034) ng/mL NT-Pro-B Natriuret Pep pg/mL Total Protein (6.3-8.2) g/dL Albumin (3.5-5.0) g/dL TSH (0.465-4.680) mIU/L Coronavirus (PCR) Not Detected (Not Detectd) - Radiology Data Radiology results: report reviewed (Chest x-ray: Cardiomegaly. Heart appears increased compared to old exam. No heart failure.) Disposition Clinical Impression: Dehydration, Nausea, Weakness, Elevated troponin, Hypokalemia Disposition: ADMITTED IP TO THIS HOSP Condition: Stable Is patient prescribed a controlled substance at d/c from ED?: No Referrals: Ying Pearson MD [Primary Care Provider] - 1-2 days Time of Disposition: 22:41
[2021-06-03] MEDS ORDERED: SODIUM CHLORIDE 0.9% 500 ML 500 ML IV STA (20:28)
[2021-06-03] MEDS ORDERED: ONDANSETRON 4 MG/2 ML VIAL IVP STA (20:28)
--- NOTE | 2021-06-03 21:15 | XR ---
EXAMINATION TYPE: XR chest 1V portable DATE OF EXAM: 06/03/2021 COMPARISON: 12/11/2020 HISTORY: Short of breath TECHNIQUE: Single view FINDINGS: Heart is enlarged. There is no gross heart failure. Thoracic aorta is atheromatous. Bony th orax is intact. IMPRESSION: Cardiomegaly. Heart appears increased compared to old exam. No heart failure
[2021-06-03 21:25] LABS: Basophils % (A) 1 %; Eosinophils # (A) 0.1 k/uL (0-0.7); Eosinophils % (A) 2 %; HCT 38.4 % (34.0-46.0); HGB 13.3 gm/dL (11.4-16.0); Lymphocytes # (A) 1.4 k/uL (1.0-4.8); Lymphocytes % (A) 17 %; MCH 31.6 pg (25.0-35.0); MCHC 34.7 g/dL (31.0-37.0); MCV 91.1 fL (80.0-100.0); Mean Platelet Volume 7.6; Monocytes # (A) 0.4 k/uL (0-1.0); Monocytes % (A) 4 %; Neutrophils # (A) 6.2 k/uL (1.3-7.7); Neutrophils % (A) 75 %; Platelet Count 271 k/uL (150-450); RBC 4.22 m/uL (3.80-5.40); RDW 15.3 % (11.5-15.5); WBC 8.3 k/uL (3.8-10.6)
[2021-06-03 21:30] LABS: Partial Thromboplastin Time 22.8 sec (22.0-30.0); Prothrombin Time 10.4 sec (9.0-12.0)
[2021-06-03 22:05] LABS: Calcium 9.4 mg/dL (8.4-10.2); Magnesium 2.5 mg/dL (1.6-2.3); Total Bilirubin 0.6 mg/dL (0.2-1.3); Total Protein 6.6 g/dL (6.3-8.2)
[2021-06-03 22:10] LABS: Potassium 2.5 mmol/L (3.5-5.1)
[2021-06-03] MEDS ORDERED: POTASSIUM CHLORIDE ER 20 MEQ TAB.ER PO STA (22:13)
[2021-06-03] MEDS ORDERED: SODIUM CHLORIDE 0.9% 500 ML 500 ML IV ONE (22:13)
[2021-06-03] MEDS ORDERED: ASPIRIN 325 MG TAB PO STA (22:14)
[2021-06-03] MEDS ORDERED: POTASSIUM CHLORIDE 20 MEQ in WATER FOR INJECTION 1 100ML.BAG IVPB ONE (22:30)
[2021-06-03] MEDS: SODIUM CHLORIDE 0.9% 1,000 ML IV SCH (23:08)
[2021-06-04 01:13] LABS: Appearance,Urine Cloudy (Clear); Bacteria,Urine Rare /hpf; Bilirubin,Urine Negative (Negative); Blood,Urine Negative (Negative); Color,Urine Yellow; Glucose,Urine (UA) Negative (Negative); Hyaline Casts,Urine 77 /lpf (0-2); Ketones,Urine Negative (Negative); Leukocyte Esterase,Urine Large (Negative); Mucus,Urine Occasional /hpf; Nitrite,Urine Negative (Negative); PH, Urine 5.5 (5.0-8.0); Protein,Urine Trace (Negative); RBC,Urine 1 /hpf (0-5); Specific Gravity,Urine 1.016 (1.001-1.035); Squamous Epithelial Cell,Urine 8 /hpf (0-4); Urobilinogen,Urine <2.0 mg/dL (<2.0); WBC,Urine 55 /hpf (0-5)
[2021-06-04 04:23] LABS: Basophils % (A) 0 %; Eosinophils # (A) 0.2 k/uL (0-0.7); Eosinophils % (A) 2 %; HGB 12.8 gm/dL (11.4-16.0); Lymphocytes # (A) 1.9 k/uL (1.0-4.8); Lymphocytes % (A) 20 %; MCH 30.3 pg (25.0-35.0); MCHC 31.9 g/dL (31.0-37.0); MCV 94.9 fL (80.0-100.0); Mean Platelet Volume 7.8; Monocytes # (A) 0.4 k/uL (0-1.0); Monocytes % (A) 4 %; Neutrophils # (A) 6.7 k/uL (1.3-7.7); Neutrophils % (A) 71 %; Platelet Count 265 k/uL (150-450); RBC 4.21 m/uL (3.80-5.40); RDW 15.3 % (11.5-15.5); WBC 9.4 k/uL (3.8-10.6)
[2021-06-04 04:31] LABS: Albumin 3.6 g/dL (3.5-5.0); Calcium 8.7 mg/dL (8.4-10.2); Potassium 3.3 mmol/L (3.5-5.1); Total Bilirubin 0.4 mg/dL (0.2-1.3)
[2021-06-04] MEDS: SODIUM CHLORIDE 0.9% 1,000 ML IV SCH ×2 (06:39→21:33)
[2021-06-04] MEDS: LEVOTHYROXINE 125 MCG TAB PO SCH (06:39)
[2021-06-04] MEDS: cloNIDine HCL 0.1 MG TAB PO SCH ×2 (08:24→21:33)
[2021-06-04] MEDS: hydrALAZINE HCL 50 MG TAB PO SCH ×3 (08:24→21:32)
[2021-06-04] MEDS ORDERED: IPRATROPIUM-ALBUTEROL 3 ML NEB INHALATION PRN (08:24)
[2021-06-04] MEDS: amLODIPine 10 MG TAB PO SCH (08:24)
[2021-06-04] MEDS: carvediloL 12.5 MG TAB PO SCH ×2 (08:24→18:45)
[2021-06-04] MEDS ORDERED: FAMOTIDINE 20 MG/2 ML VIAL IV SCH ×2 (09:00)
[2021-06-04] MEDS ORDERED: FUROSEMIDE 40 MG TAB PO SCH (09:00)
--- NOTE | 2021-06-04 09:47 | P.HPIM ---
History of Present Illness This is a pleasant 81 years old female with past medical history of COPD AND CHRONIC HYPOXIC RESPIRATORY FAILURE ON 2.5 L OXYGEN , SHE FOLLOWS UP WITH DR. MURPHY. GERD, Hyperlipidemia, Hypertension, Osteoarthritis (OA), Pulmonary Embolus not on anticoagulation, Rheumatoid Arthritis (RA), Sleep Apnea/CPAP/BIPAP, hypothyroidism, history of basal cell carcinoma of the skin resected, history of melanoma of the skin involving the back, resected, Presents because of nausea, decreased appetite and generalized weakness. Patient states over the last week she was getting episodes of feeling hot with chills with lightheadedness, she does not want to eat but she drinks LIQUIDS. Also she reports worsening of her dyspnea and orthopnea over the last week with worsening cough than usual, she has chronic cough and clear phlegm. She denies any urinary tract symptoms, no dysuria or urgency or hesitancy. No suprapubic tenderness or discomfort. No new back pain. He is really she has constipation however she had 1-2 days episodes of diarrhea which is resolved now, over the last 2 days she did not have bowel movement. She denies any abdominal pain or vomiting. No alcohol, smoking or illicit drugs. Patient not on CPAP. Vitas looks stable, she is to keep liquids breathing rate 20-24, blood pressure 179/84 Labs show unremarkable CBC, INR, low potassium 2.5 came back to 3.3. No sodium 133 and 136. Height creatinine 1.65 came down to 1.36 Urinalysis is suspicious of infection. Coronal virus however is not detected. Troponin elevated 0.04 and 0.035. Her last one was normal 0.030. EKG shows sinus bradycardia at [address]-T changes and QTC 487. Chest x-ray: Cardiomegaly On admission patient received normal saline. Patient was started on aspirin Cardiology team were consulted Review of Systems CONSTITUTIONAL: No fever, no malaise, no fatigue. HEENT: No recent visual problems or hearing problems. Denied any sore throat. CARDIOVASCULAR: No orthopnea, PND, no palpitations, no syncope. PULMONARY: No chest wall tenderness, no hemoptysis. GASTROINTESTINAL: No diarrhea, no nausea, no vomiting, no abdominal pain. Normoactive bowel sounds. NEUROLOGICAL: No headaches, no weakness, no numbness. HEMATOLOGICAL: Denies any bleeding or petechiae. GENITOURINARY: Denies any burning micturition, frequency, or urgency. MUSCULOSKELETAL/RHEUMATOLOGICAL: Denies any joint pain, swelling, or any muscle pain. ENDOCRINE: Denies any polyuria or polydipsia. Past Medical History Past Medical History: Asthma, Cancer, COPD, GERD/Reflux, Hyperlipidemia, Hypertension, Osteoarthritis (OA), Pneumonia, Pulmonary Embolus (PE), Rheumatoid Arthritis (RA), Sleep Apnea/CPAP/BIPAP, Thyroid Disorder Additional Past Medical History / Comment(s): COPD/asthma, chronic cough, hypothyroidism, history of basal cell carcinoma of the skin resected, history of melanoma of the skin involving the back, resected, history of diverticulosis/diverticulitis, history of fibrocystic disease, obstructive sleep apnea can sleep with the CPAP, varicose veins in lower extremities, hypothyroidism History of Any Multi-Drug Resistant Organisms: None Reported Past Surgical History: Bladder Surgery, Bowel Resection, Cholecystectomy, Heart Catheterization, Hernia Repair, Hysterectomy, Joint Replacement, Orthopedic Surgery Additional Past Surgical History / Comment(s): LEFT KNEE REPLACED, PARTIAL THYROIDECTOMY,HIATAL HERNIA REPAIR 07/2013, ABDOMINAL HERNIA REPAIR,MULTIPLE SKIN LESIONS-PT STATED HAS HAS BASAL,SQUAMOUS AND MELANOMA SKIN CA ( NECK,RT UPPER & LOWER THIGH,LT ARM,RT ARM, face, back-melanoma)SKIN GRAFTS TO VINOD.LEGS- LT EAR-LT MIDDLE FINGER,ACHILLES TENDON surgery. RT OVARY 1 TUBE REMOVED, SIGMOID RESECTION D/T BOWEL OBSTRUCTION,RT LITLE FINGER AMP, Past Anesthesia/Blood Transfusion Reactions: Previous Problems w/ Anesthesia, Motion Sickness, Postoperative Nausea & Vomiting (PONV) Additional Past Anesthesia/Blood Transfusion Reaction / Comment(s): STATES "HAS HAD SWELLING TO FACE,HANDS,ARMS AND SKIN TURNS "BEET RED"WITH ANESTHESIA-with IV sedation. states no problems with last surgery at [facility] 01/2017-anesthesia records on chart Past Psychological History: Anxiety Smoking Status: Never smoker Past Alcohol Use History: None Reported Past Drug Use History: None Reported - Past Family History Mother Family Medical History: Diabetes Mellitus Additional Family Medical History / Comment(s): HEART PROBLEMS Sister(s) Family Medical History: Diabetes Mellitus, Myocardial Infarction ([place]) Additional Family Medical History / Comment(s): EMPHYSEMA Father Family Medical History: Cancer Additional Family Medical History / Comment(s): LUNG CA. Medications and Allergies Home Medications Medication Instructions Recorded Confirmed Type Furosemide [Lasix] 40 mg PO BID 12/16/18 06/03/21 History Colon Probiotic 1 tab PO DAILY 10/18/20 06/03/21 History Levothyroxine Sodium [Synthroid] 125 mcg PO DAILY 10/18/20 06/03/21 History Simvastatin 40 mg PO HS 10/18/20 06/03/21 History amLODIPine [Norvasc] 10 mg PO DAILY 10/18/20 06/03/21 History Mirtazapine [Remeron] 15 mg PO HS #30 tab 10/22/20 06/03/21 Rx carvediloL [Coreg*] 12.5 mg PO BID-W/MEALS #60 tab 10/22/20 06/03/21 Rx Albuterol Sulfate [Albuterol 2 puff PO RT-Q6H PRN 06/03/21 06/03/21 History Sulfate Hfa] Clotrimazole/Betamethasone Dip 1 applic TOPICAL BID 06/03/21 06/03/21 History [Lotrisone Cream] Elderberry Fruit and Flower [Black 1 cap PO BID 06/03/21 06/03/21 History Elderberry 575 mg Cap] HYDROcodone/APAP 7.5-325MG [[place] 1 tab PO TID PRN 06/03/21 06/03/21 History 7.5-325] Sertraline [Zoloft] 50 mg PO HS 06/03/21 06/03/21 History Spironolactone 25 mg PO DAILY 06/03/21 06/03/21 History cloNIDine HCL [Catapres] 0.3 mg PO BID 06/03/21 06/03/21 History diphenhydrAMINE HCL [Benadryl] 25 mg PO BID 06/03/21 06/03/21 History hydrALAZINE HCL 50 mg PO TID 06/03/21 06/03/21 History Allergies Allergy/AdvReac Type Severity Reaction Status Date / Time adhesive Allergy SKIN Verified 06/03/21 22:03 REDDENS & BLISTERS- PAPER TAPE OKAY azithromycin [From Zithromax] Allergy Nausea & Verified 06/03/21 22:03 Vomiting meperidine HCl [From Demerol] Allergy Nausea & Verified 06/03/21 22:03 Vomiting morphine Allergy Nausea & Verified 06/03/21 22:03 Vomiting Sulfa (Sulfonamide Allergy Nausea & Verified 06/03/21 22:03 Antibiotics) Vomiting aspirin AdvReac STOMACH Verified 06/03/21 22:03 HERRERA anesthesia Allergy facial/arms/hands Uncoded 06/03/21 22:03 swelling,skin"turns beet red", nausea DISSOLVING SUTURES Allergy INFECTION Uncoded 06/03/21 22:03 Physical Exam Vitals: Vital Signs Temp Pulse Resp BP Pulse Ox 06/04/21 08:19 97.8 F 74 24 179/84 98 06/04/21 05:00 97.8 F 74 24 174/96 98 06/04/21 01:26 97.8 F 96 20 167/83 98 06/04/21 00:11 68 20 167/83 96 06/03/21 19:37 98.9 F 64 18 174/74 94 L Intake and Output 06/03/21 06/04/21 06/04/21 22:59 06:59 14:59 Intake Total 375 Output Total 400 Balance -25 Intake: Intake, IV Titration 375 Amount Sodium Chloride 0.9% 1, 375 000 ml @ 75 mls/hr IV . [id number] [facility] Rx#:[id number] Output: Urine 400 Other: # Voids 2 Weight 92.986 kg GENERAL: The patient is alert and oriented x3, not in any acute distress. Well developed, well nourished. HEENT: Pupils are round and equally reacting to light. EOMI. No scleral icterus. No conjunctival pallor. Normocephalic, atraumatic. No pharyngeal erythema. No thyromegaly. CARDIOVASCULAR: S1 and S2 present. No murmurs, rubs, or gallops. -PULMONARY: Chest is clear to auscultation, no wheezing or crackles. Tachypnea with decreased air entry on both sides ABDOMEN: Soft, nontender, nondistended, normoactive bowel sounds. No palpable organomegaly. MUSCULOSKELETAL: No joint swelling or deformity. -EXTREMITIES: No cyanosis, clubbing, . 1+ bilateral pitting edema. NEUROLOGICAL: Gross neurological examination did not reveal any focal deficits. SKIN: No rashes. No petechiae Results CBC & Chem 7: 06/04/21 04:06 06/04/21 04:06 Labs: Abnormal Lab Results - Last 24 Hours (Table) 10/17/21 10/17/21 10/18/21 Range/Units 21:00 21:00 00:08 Sodium 133 L (137-145) mmol/L Potassium 2.5 L* (3.5-5.1) mmol/L Chloride 86 L (98-107) mmol/L Carbon Dioxide 36 H (22-30) mmol/L BUN 38 H (7-17) mg/dL Creatinine 1.65 H (0.52-1.04) mg/dL Glucose 166 H (74-99) mg/dL Magnesium 2.5 H (1.6-2.3) mg/dL Troponin I 0.040 H* 0.035 H* (0.000-0.034) ng/mL Total Protein (6.3-8.2) g/dL Urine Appearance (Clear) Urine Protein (Negative) Ur Leukocyte Esterase (Negative) Urine WBC (0-5) /hpf Ur Squamous Epith Cells (0-4) /hpf Urine Bacteria (None) /hpf Hyaline Casts (0-2) /lpf Urine Mucus (None) /hpf 06/04/21 06/04/21 Range/Units 00:30 04:06 Sodium 136 L (137-145) mmol/L Potassium 3.3 L (3.5-5.1) mmol/L Chloride 93 L (98-107) mmol/L Carbon Dioxide 35 H (22-30) mmol/L BUN 37 H (7-17) mg/dL Creatinine 1.36 H (0.52-1.04) mg/dL Glucose 129 H (74-99) mg/dL Magnesium (1.6-2.3) mg/dL Troponin I (0.000-0.034) ng/mL Total Protein 6.0 L (6.3-8.2) g/dL Urine Appearance Cloudy H (Clear) Urine Protein Trace H (Negative) Ur Leukocyte Esterase Large H (Negative) Urine WBC 55 H (0-5) /hpf Ur Squamous Epith Cells 8 H (0-4) /hpf Urine Bacteria Rare H (None) /hpf Hyaline Casts 77 H (0-2) /lpf Urine Mucus Occasional H (None) /hpf Assessment and Plan Assessment: Acute COPD exacerbation Possible Acute urinary tract infection, versus asymptomatic bacteriuria Elevated troponin, rule out cardiac causes hypokalemia Chronic hypoxic respiratory failure Acute kidney injury Hypertension Hyperlipidemia History of COPD/asthma, not acute exacerbation History of osteoarthritis History of PE, not on anticoagulation History of rheumatoid arthritis History of sleep apnea Hypothyroidism Plan: This is a pleasant 81 years old female who presents with a gait I an elevated troponin and UTI. Continue with aspirin and cardiology consult, telemetry monitoring. Continue with IV fluids, hold Lasix and Aldactone Start ceftriaxone with follow-up urine culture At [facility] and pulmonary consult, bronchodilators Labs and medication were reviewed.. Continue same treatment. Continue with symptomatic treatment. Resume home medication. Monitor lytes and vitals. DVT and GI prophylaxis. Further recommendations depends on the clinical course of the patient DVT prophylaxis: Subcutaneous heparin GI Prophylaxis: Pepcid PT/OT: Pending Prognosis is guarded
[2021-06-04] MEDS ORDERED: hydrALAZINE HCL 25 MG TAB PO PRN (09:48)
--- NOTE | 2021-06-04 11:18 | P.CRDCN ---
History of Present Illness History of present illness: This is a pleasant 81-year-old female past medical history significant for asthma, COPD, hypertension, sleep apnea, hyperlipidemia. And she follows in the office with Dr. Rudolph. We have been asked to see in consultation for elevated troponin. Patient is seen and examined in the emergency department. Patient presents with feeling weak, nausea, dry heaving, and decreased by mouth intake since Friday. She also endorses a cough. She denies any chest pain, shortness of breath, lightheadedness, dizziness, syncope, palpitations. She denies any fever or chills. She denies any abdominal pain or vomiting. Patient denies history of diabetes, [place] or stroke. She denies smoking. DIAGNOSTICS Most recent Echo October 2020 revealed 5055 percent, mild mitral regurgitation. Patient had a cardiac catheterization in 2018 which showed mild nonobstructive CAD involving proximal LAD with a ejection fraction of 60%. Labs CBC unremarkable, sodium 133, potassium 2.5 improved 3.3, BUN 38, serum creatinine 1.65, magnesium 2.5, troponin 0.04, 0.03, 0.03, proBNP 313, TSH within normal limits, COVID-19 PCR negative EKG reveals sinus bradycardia, heart rate 53, nonspecific STT wave ab normalities. Telemetry tracings indicate sinus mechanism. Current home cardiac medications include carvedilol 12.5 mg twice a day, simvastatin 40 mg nightly, hydralazine 50 mg 3 times a day, aspirin lactone 25 mg daily, Lasix 40 mg twice a day, amlodipine 10 mg daily, clonidine 0.3 mg twice a day REVIEW OF SYSTEMS At the time of my exam: CONSTITUTIONAL: Positive chills Denies fever CARDIOVASCULAR: Denies shortness of breath, Denies orthopnea, PND, Denies chest pain, or palpitations. RESPIRATORY: +cought GASTROINTESTINAL: + Nausea, dry heaves, decreased by mouth intake Denies abdominal pain, diarrhea, constipation, vomiting. MUSCULOSKELETAL: Denies myalgias. NEUROLOGIC:+headache Denies numbness, tingling, or weakness. ENDOCRINE: Denies fatigue, weight change, polydipsia or polyurina. GENITOURINARY: Denies burning, hematuria or urgency with micturation. HEMATOLOGIC: Denies history of anemia or bleeding. PHYSICAL EXAMINATION Vitals blood pressure 154/75, heart rate 50, afebrile, T-max O2 sat on 3 L nasal cannula CONSTITUTIONAL: No apparent distress. HEENT: Head is normocephalic. Pupils are equal, round. Sclerae anicteric. Mucous membranes of the mouth are moist. No JVD. No carotid bruit. CHEST EXAMINATION: Lungs diminished bibasilar, other lung khalil clear to auscultation. No chest wall tenderness is noted on palpation or with deep breathing. HEART EXAMINATION: Regular rate and rhythm. S1, S2 heard. No murmurs, gallops or rub. ABDOMEN: Soft, nontender. Positive bowel sounds. SKIN: intact, no wounds EXTREMITIES: 2+ peripheral pulses, no lower extremity edema NEUROLOGIC EXAMINATION: Patient is awake, alert and oriented x3. ASSESSMENT -Elevated troponin, trend not indicative of acute coronary syndrome -Nausea, Decreased PO Intake -Acute Kidney Injury -Dehydration -Mild non-obstructive coronary artery disease -History of Hypertension -History of hyperlipidemia PLAN -Elevated troponin, not indicative of acute coronary syndrome, most likely due to patient's acute kidney injury. -No further cardiac workup or adjustments from a cardiology perspective. -Continue to hold PO Lasix -Continue home cardiac medications aspirin, statin, carvedilol, clonidine Nurse Practitioner note has been reviewed, I agree with a documented findings and plan of care. Patient was seen and examined. Past Medical History Past Medical History: Asthma, Cancer, COPD, GERD/Reflux, Hyperlipidemia, Hypertension, Osteoarthritis (OA), Pneumonia, Pulmonary Embolus (PE), Rheumatoid Arthritis (RA), Sleep Apnea/CPAP/BIPAP, Thyroid Disorder Additional Past Medical History / Comment(s): COPD/asthma, chronic cough, hypothyroidism, history of basal cell carcinoma of the skin resected, history of melanoma of the skin involving the back, resected, history of diverticulosis/diverticulitis, history of fibrocystic disease, obstructive sleep apnea can sleep with the CPAP, varicose veins in lower extremities, hypot hyroidism History of Any Multi-Drug Resistant Organisms: None Reported Past Surgical History: Bladder Surgery, Bowel Resection, Cholecystectomy, Heart Catheterization, Hernia Repair, Hysterectomy, Joint Replacement, Orthopedic Surgery Additional Past Surgical History / Comment(s): LEFT KNEE REPLACED, PARTIAL THYROIDECTOMY,HIATAL HERNIA REPAIR 07/2013, ABDOMINAL HERNIA REPAIR,MULTIPLE SKIN LESIONS-PT STATED HAS HAS BASAL,SQUAMOUS AND MELANOMA SKIN CA ( NECK,RT UPPER & LOWER THIGH,LT ARM,RT ARM, face, back-melanoma)SKIN GRAFTS TO VINOD.LEGS- LT EAR-LT MIDDLE FINGER,ACHILLES TENDON surgery. RT OVARY 1 TUBE REMOVED, SIGMOID RESECTION D/T BOWEL OBSTRUCTION,RT LITLE FINGER AMP, Past Anesthesia/Blood Transfusion Reactions: Previous Problems w/ Anesthesia, Motion Sickness, Postoperative Nausea & Vomiting (PONV) Additional Past Anesthesia/Blood Transfusion Reaction / Comment(s): STATES "HAS HAD SWELLING TO FACE,HANDS,ARMS AND SKIN TURNS "BEET RED"WITH ANESTHESIA-with IV sedation. states no problems with last surgery at [facility] 01/2017-anesthesia records on chart Past Psychological History: Anxiety Smoking Status: Never smoker Past Alcohol Use History: None Reported Past Drug Use History: None Reported - Past Family History Mother Family Medical History: Diabetes Mellitus Additional Family Medical History / Comment(s): HEART PROBLEMS Sister(s) Family Medical History: Diabetes Mellitus, Myocardial Infarction ([place]) Additional Family Medical History / Comment(s): EMPHYSEMA Father Family Medical History: Cancer Additional Family Medical History / Comment(s): LUNG CA. Medications and Allergies Home Medications Medication Instructions Recorded Confirmed Type Furosemide [Lasix] 40 mg PO BID 12/16/18 06/03/21 History Colon Probiotic 1 tab PO DAILY 10/18/20 06/03/21 History Levothyroxine Sodium [Synthroid] 125 mcg PO DAILY 10/18/20 06/03/21 History Simvastatin 40 mg PO HS 10/18/20 06/03/21 History amLODIPine [Norvasc] 10 mg PO DAILY 10/18/20 06/03/21 History Mirtazapine [Remeron] 15 mg PO HS #30 tab 10/22/20 06/03/21 Rx carvediloL [Coreg*] 12.5 mg PO BID-W/MEALS #60 tab 10/22/20 06/03/21 Rx Albuterol Sulfate [Albuterol 2 puff PO RT-Q6H PRN 06/03/21 06/03/21 History Sulfate Hfa] Clotrimazole/Betamethasone Dip 1 applic TOPICAL BID 06/03/21 06/03/21 History [Lotrisone Cream] Elderberry Fruit and Flower [Black 1 cap PO BID 06/03/21 06/03/21 History Elderberry 575 mg Cap] HYDROcodone/APAP 7.5-325MG [[place] 1 tab PO TID PRN 06/03/21 06/03/21 History 7.5-325] Sertraline [Zoloft] 50 mg PO HS 06/03/21 06/03/21 History Spironolactone 25 mg PO DAILY 06/03/21 06/03/21 History cloNIDine HCL [Catapres] 0.3 mg PO BID 06/03/21 06/03/21 History diphenhydrAMINE HCL [Benadryl] 25 mg PO BID 06/03/21 06/03/21 History hydrALAZINE HCL 50 mg PO TID 06/03/21 06/03/21 History Allergies Allergy/AdvReac Type Severity Reaction Status Date / Time adhesive Allergy SKIN Verified 06/03/21 22:03 REDDENS & BLISTERS- PAPER TAPE OKAY azithromycin [From Zithromax] Allergy Nausea & Verified 06/03/21 22:03 Vomiting meperidine HCl [From Demerol] Allergy Nausea & Verified 06/03/21 22:03 Vomiting morphine Allergy Nausea & Verified 06/03/21 22:03 Vomiting Sulfa (Sulfonamide Allergy Nausea & Verified 06/03/21 22:03 Antibiotics) Vomiting aspirin AdvReac STOMACH Verified 06/03/21 22:03 HERRERA anesthesia Allergy facial/arms/hands Uncoded 06/03/21 22:03 swelling,skin"turns beet red", nausea DISSOLVING SUTURES Allergy INFECTION Uncoded 06/03/21 22:03 Physical Exam Vitals: Vital Signs Temp Pulse Resp BP Pulse Ox 06/04/21 05:00 97.8 F 74 24 174/96 98 06/04/21 01:26 97.8 F 96 20 167/83 98 06/04/21 00:11 68 20 167/83 96 06/03/21 19:37 98.9 F 64 18 174/74 94 L Intake and Output 06/03/21 06/04/21 06/04/21 22:59 06:59 14:59 Intake Total 375 Output Total 400 Balance -25 Intake: Intake, IV Titration 375 Amount Sodium Chloride 0.9% 1, 375 000 ml @ 75 mls/hr IV . [id number] KSENIA Rx#:[id number] Output: Urine 400 Other: # Voids 2 Weight 92.986 kg Results 06/04/21 04:06 06/04/21 04:06 Cardiac Enzymes 06/03/21 06/03/21 06/04/21 Range/Units 21:00 21:00 00:08 AST 22 (14-36) U/L Troponin I 0.040 H* 0.035 H* (0.000-0.034) ng/mL 06/04/21 06/04/21 Range/Units 04:06 04:06 AST 19 (14-36) U/L Troponin I 0.030 (0.000-0.034) ng/mL Coagulation 06/03/21 Range/Units 21:00 PT 10.4 (9.0-12.0) sec APTT 22.8 (22.0-30.0) sec CBC 06/03/21 06/04/21 Range/Units 21:00 04:06 WBC 8.3 9.4 (3.8-10.6) k/uL RBC 4.22 4.21 (3.80-5.40) m/uL Hgb 13.3 12.8 (11.4-16.0) gm/dL Hct 38.4 40.0 (34.0-46.0) % Plt Count 271 265 (150-450) k/uL Comprehensive Metabolic Panel 06/03/21 06/04/21 Range/Units 21:00 04:06 Sodium 133 L 136 L (137-145) mmol/L Potassium 2.5 L* 3.3 L (3.5-5.1) mmol/L Chloride 86 L 93 L (98-107) mmol/L Carbon Dioxide 36 H 35 H (22-30) mmol/L BUN 38 H 37 H (7-17) mg/dL Creatinine 1.65 H 1.36 H (0.52-1.04) mg/dL Glucose 166 H 129 H (74-99) mg/dL Calcium 9.4 8.7 (8.4-10.2) mg/dL AST 22 19 (14-36) U/L ALT 13 12 (4-34) U/L Alkaline Phosphatase 94 81 (38-126) U/L Total Protein 6.6 6.0 L (6.3-8.2) g/dL Albumin 4.0 3.6 (3.5-5.0) g/dL Current Medications Generic Name Dose Route Start Last Admin Trade Name Freq PRN Reason Stop Dose Admin Amlodipine Besylate 10 mg 10/18/21 09:00 Amlodipine 10 Mg Tab PO DAILY PENDING SALE TO [facility] Atorvastatin Calcium 20 mg 06/04/21 21:00 Atorvastatin 20 Mg Tab PO HS KSENIA Carvedilol 12.5 mg 06/04/21 07:30 Carvedilol 12.5 Mg Tab PO BID-W/MEALS [facility] Clonidine 0.3 mg 06/04/21 09:00 Clonidine Hcl 0.1 Mg Tab PO BID [facility] Hydralazine HCl 50 mg 06/04/21 09:00 Hydralazine Hcl 50 Mg Tab PO TID [facility] Sodium Chloride 1,000 mls @ 75 mls/hr 06/03/21 22:45 06/04/21 06:39 Saline 0.9% IV 75 mls/hr .[id number] [facility] Administration Levothyroxine Sodium 125 mcg 06/04/21 06:30 06/04/21 06:39 Levothyroxine 125 Mcg Tab PO 125 mcg DAILY@0630 [facility] Administration Mirtazapine 15 mg 06/04/21 21:00 Mirtazapine 15 Mg Tab PO HS [facility] Ondansetron HCl 4 mg 06/03/21 22:41 Ondansetron 4 Mg/2 Ml Vial IVP Q8HR PRN Nausea And Vomiting Sertraline HCl 50 mg 06/04/21 21:00 Sertraline 50 Mg Tab PO HS PENDING SALE TO [facility] Intake and Output 06/03/21 06/04/21 06/04/21 22:59 06:59 14:59 Intake Total 375 Output Total 400 Balance -25 Intake: Intake, IV Titration 375 Amount Sodium Chloride 0.9% 1, 375 000 ml @ 75 mls/hr IV . [id number] PENDING SALE TO [facility] Rx#:[id number] Output: Urine 400 Other: # Voids 2 Weight 92.986 kg 06/04/21 04:06 06/04/21 04:06
[2021-06-04] MEDS: ONDANSETRON 4 MG/2 ML VIAL IVP PRN ×2 (11:21→21:31)
[2021-06-04] MEDS: ASPIRIN 81 MG PO SCH (11:22)
[2021-06-04] MEDS: HEPARIN SODIUM,PORCINE/PF 5,000 UNIT/0.5 ML SYRINGE SQ SCH ×2 (11:25→21:31)
[2021-06-04] MEDS ORDERED: HYDROcodone/APAP 7.5-325MG 1 EACH TAB PO PRN (15:23)
--- NOTE | 2021-06-04 16:30 | P.CNPUL ---
History of Present Illness Consult date: 06/04/21 History of present illness: 81-year-old female patient, presented to hospital because of feeling weak, nausea, dry heaves, oral dryness, increased cough. No significant chest pain or shortness of breath. No lightheadedness, dizziness, syncope, angina, palpitations, pleurisy or hemoptysis. Denied having any fever or chills. Denied having any nausea vomiting or diarrhea or abdominal pain. She is known to have COPD, obstructive sleep apnea and hypertension and hyperlipidemia. The patient is also known to have mild nonobstructive CAD and based on recent cardiac catheterization from 2017, the patient ejection fraction of 60% with mild nonobstructive CAD involving the proximal LAD. Echo from October 2020 showed an ejection fraction of 50-55% and the patient also had a mild mitral regurgitation. She is also known to have rheumatoid arthritis and skin cancer t hat has been resected in the form of melanoma and basal cell carcinoma. In emergency, workup has been initiated and the patient had a CBC that was essentially unremarkable. The patient's blood work showed a sodium of 133 with a potassium of 2.5 at a time of admission with a creatinine of 1.65 and a BUN of 38. Troponins were 0.04, 0.03 and 0.03 respectively 3. ProBNP level was 313. TSH was normal. EKG was showing sinus bradycardia, no acute ischemic changes. COVID-19 testing was also negative. The patienthad a chest x-ray that was essentially within normal with some cardiomegaly. UA was abnormal. Review of Systems Constitutional: Denies chills, Denies fever, positive for generalized weakness and fatigue Eyes: denies blurred vision, denies bulging eye, denies decreased vision Ears: deny: decreased hearing, ear discharge, earache, tinnitus Ears, nose, mouth and throat: Reports as per HPI Cardiovascular: Reports decreased exercise tolerance, Reports dyspnea on exertion, Reports shortness of breath Respiratory: Reports cough, Reports dyspnea, Reports wheezing Gastrointestinal: Denies abdominal pain, Denies diarrhea, Denies nausea, Denies vomiting Genitourinary: Denies dysuria, Denies hematuria Musculoskeletal: Reports as per HPI Musculoskeletal: absent: ankle pain, ankle stiffness, ankle swelling Integumentary: Denies pruritus, Denies rash Neurological: Reports as per HPI Psychiatric: Denies anxiety, Denies depression Endocrine: Reports as per HPI Hematologic/Lymphatic: Reports as per HPI Allergic/Immunologic: Reports as per HPI Past Medical History Past Medical History: Asthma, Cancer, COPD, GERD/Reflux, Hyperlipidemia, Hypertension, Osteoarthritis (OA), Pneumonia, Pulmonary Embolus (PE), Rheumatoid Arthritis (RA), Sleep Apnea/CPAP/BIPAP, Thyroid Disorder Additional Past Medical History / Comment(s): COPD/asthma, chronic cough, hypothyroidism, history of basal cell carcinoma of the skin resected, history of melanoma of the skin involving the back, resected, history of diverticulosis/diverticulitis, history of fibrocystic disease, obstructive sleep apnea can sleep with the CPAP, varicose veins in lower extremities, hypothyroidism History of Any Multi-Drug Resistant Organisms: None Reported Past Surgical History: Bladder Surgery, Bowel Resection, Cholecystectomy, Heart Catheterization, Hernia Repair, Hysterectomy, Joint Replacement, Orthopedic Surgery Additional Past Surgical History / Comment(s): LEFT KNEE REPLACED, PARTIAL THYROIDECTOMY,HIATAL HERNIA REPAIR 07/2013, ABDOMINAL HERNIA REPAIR,MULTIPLE SKIN LESIONS-PT STATED HAS HAS BASAL,SQUAMOUS AND MELANOMA SKIN CA ( NECK,RT UPPER & LOWER THIGH,LT ARM,RT ARM, face, back-melanoma)SKIN GRAFTS TO VINOD.LEGS- LT EAR-LT MIDDLE FINGER,ACHILLES TENDON surgery. RT OVARY 1 TUBE REMOVED, SIGMOID RESECTION D/T BOWEL OBSTRUCTION,RT LITLE FINGER AMP, Past Anesthesia/Blood Transfusion Reactions: Previous Problems w/ Anesthesia, Motion Sickness, Postoperative Nausea & Vomiting (PONV) Additional Past Anesthesia/Blood Transfusion Reaction / Comment(s): STATES "HAS HAD SWELLING TO FACE,HANDS,ARMS AND SKIN TURNS "BEET RED"WITH ANESTHESIA-with IV sedation. states no problems with last surgery at [facility] 01/2017-anesthesia records on chart Past Psychological History: Anxiety Smoking Status: Never smoker Past Alcohol Use History: None Reported Past Drug Use History: None Reported - Past Family History Mother Family Medical History: Diabetes Mellitus Additional Family Medical History / Comment(s): HEART PROBLEMS Sister(s) Family Medical History: Diabetes Mellitus, Myocardial Infarction ([place]) Additional Family Medical History / Comment(s): EMPHYSEMA Father Family Medical History: Cancer Additional Family Medical History / Comment(s): LUNG CA. Medications and Allergies Home Medications Medication Instructions Recorded Confirmed Type Colon Probiotic 1 tab PO DAILY 10/18/20 06/03/21 History Levothyroxine Sodium [Synthroid] 125 mcg PO DAILY 10/18/20 06/03/21 History Simvastatin 40 mg PO HS 10/18/20 06/03/21 History amLODIPine [Norvasc] 10 mg PO DAILY 10/18/20 06/03/21 History Mirtazapine [Remeron] 15 mg PO HS #30 tab 10/22/20 06/03/21 Rx carvediloL [Coreg*] 12.5 mg PO BID-W/MEALS #60 tab 10/22/20 06/03/21 Rx Albuterol Sulfate [Albuterol 2 puff PO RT-Q6H PRN 06/03/21 06/03/21 History Sulfate Hfa] Clotrimazole/Betamethasone Dip 1 applic TOPICAL BID 06/03/21 06/03/21 History [Lotrisone Cream] Elderberry Fruit and Flower [Black 1 cap PO BID 06/03/21 06/03/21 History Elderberry 575 mg Cap] HYDROcodone/APAP 7.5-325MG [Mark 1 tab PO TID PRN 06/03/21 06/03/21 History 7.5-325] Sertraline [Zoloft] 50 mg PO HS 06/03/21 06/03/21 History Spironolactone 25 mg PO DAILY 06/03/21 06/03/21 History cloNIDine HCL [Catapres] 0.3 mg PO BID 06/03/21 06/03/21 History diphenhydrAMINE HCL [Benadryl] 25 mg PO BID 06/03/21 06/03/21 History hydrALAZINE HCL 50 mg PO TID 06/03/21 06/03/21 History Allergies Allergy/AdvReac Type Severity Reaction Status Date / Time adhesive Allergy SKIN Verified 06/03/21 22:03 REDDENS & BLISTERS- PAPER TAPE OKAY azithromycin [From Zithromax] Allergy Nausea & Verified 06/03/21 22:03 Vomiting meperidine HCl [From Demerol] Allergy Nausea & Verified 06/03/21 22:03 Vomiting morphine Allergy Nausea & Verified 06/03/21 22:03 Vomiting Sulfa (Sulfonamide Allergy Nausea & Verified 06/03/21 22:03 Antibiotics) Vomiting aspirin AdvReac STOMACH Verified 06/03/21 22:03 HERRERA anesthesia Allergy facial/arms/hands Uncoded 06/03/21 22:03 swelling,skin"turns beet red", nausea DISSOLVING SUTURES Allergy INFECTION Uncoded 06/03/21 22:03 Physical Exam Vitals: Vital Signs Temp Pulse Resp BP Pulse Ox 06/04/21 12:16 62 22 96 06/04/21 11:00 58 L 22 154/75 96 06/04/21 10:00 22 06/04/21 09:00 24 06/04/21 08:20 24 06/04/21 08:19 97.8 F 74 24 179/84 98 06/04/21 05:00 97.8 F 74 24 174/96 98 06/04/21 01:26 97.8 F 96 20 167/83 98 06/04/21 00:11 68 20 167/83 96 06/03/21 19:37 98.9 F 64 18 174/74 94 L Intake and Output 06/03/21 06/04/21 06/04/21 22:59 06:59 14:59 Intake Total 375 Output Total 400 Balance -25 Intake: Intake, IV Titration 375 Amount Sodium Chloride 0.9% 1, 375 000 ml @ 75 mls/hr IV . [id number] [facility] Rx#:[id number] Output: Urine 400 Other: # Voids 2 Weight 92.986 kg Gen. appearance the patient is calm and she is comfortable. breathing is nonlabored Head exam was generally normal. There was no scleral icterus or corneal arcus. Mucous membranes were moist. Neck was supple and without jugular venous distension, thyromegaly, or carotid bruits. Carotids were easily palpable bilaterally. There was no adenopathy. Lungs sounds are diminished bilaterally along with some prolongation of expiratory phase of breathing. There are expiratory wheezes bilaterally. Abdominal exam revealed normal bowel sounds. The abdomen was soft, non-tender, and without masses, organomegaly, or appreciable enlargement of the abdominal aorta. Examination of the extremities revealed easily palpable radial, femoral and pedal pulses. There was no cyanosis, clubbing or edema. The patient has varicose veins bilaterally. Examination of the skin revealed no evidence of significant rashes, suspicious appearing nevi or other concerning lesions. Neurologically the patient is awake and alert and there is no focal neurological deficits. Results - Laboratory Findings CBC and BMP: 06/04/21 04:06 06/04/21 04:06 PT/INR, D-dimer PT 10.4 sec (9.0-12.0) 06/03/21 21:00 INR 1.0 (<1.2) 06/03/21 21:00 Abnormal lab findings: Abnormal Labs 06/03/21 06/03/21 06/04/21 21:00 21:00 00:08 Sodium 133 L Potassium 2.5 L* Chloride 86 L Carbon Dioxide 36 H BUN 38 H Creatinine 1.65 H Glucose 166 H Magnesium 2.5 H Troponin I 0.040 H* 0.035 H* Total Protein Urine Appearance Urine Protein Ur Leukocyte Esterase Urine WBC Ur Squamous Epith Cells Urine Bacteria Hyaline Casts Urine Mucus 06/04/21 06/04/21 00:30 04:06 Sodium 136 L Potassium 3.3 L Chloride 93 L Carbon Dioxide 35 H BUN 37 H Creatinine 1.36 H Glucose 129 H Magnesium Troponin I Total Protein 6.0 L Urine Appearance Cloudy H Urine Protein Trace H Ur Leukocyte Esterase Large H Urine WBC 55 H Ur Squamous Epith Cells 8 H Urine Bacteria Rare H Hyaline Casts 77 H Urine Mucus Occasional H - Diagnostic Findings Chest x-ray: image reviewed Assessment and Plan Plan: 1 generalized weakness, likely on the basis of an underlying UTI, consider underlying sepsis 2 COPD currently inactive in stable and the patient has chronic dyspnea has been vaccinated for COVID-19 3 coronary artery disease with nonocclusive disease based on a cardiac catheterization from 2018 with mild disease involving the LAD, preserved LV function 4 rheumatoid arthritis 5 obstructive sleep apnea nontolerant to CPAP therapy 6 history of skin cancer in the 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 14 acute kidney injury, recovering Plan urine cultures Blood culture IV Rocephin Cardiology evaluation Resume home medications We'll follow
[2021-06-04] MEDS: IPRATROPIUM-ALBUTEROL 3 ML NEB INHALATION SCH (19:34)
[2021-06-04] MEDS: SYMBICORT 160-4.5 MCG INHALER INHALATION SCH (19:34)
[2021-06-04] MEDS: HYDROcodone/APAP 7.5-325MG 1 EACH TAB PO PRN (21:32)
[2021-06-04] MEDS: ATORVASTATIN 20 MG TAB PO SCH (21:32)
[2021-06-04] MEDS: MIRTAZAPINE 15 MG TAB PO SCH (21:32)
[2021-06-04] MEDS: SERTRALINE 50 MG TAB PO SCH (21:32)
[2021-06-05] MEDS: LEVOTHYROXINE 125 MCG TAB PO SCH (06:18)
[2021-06-05] MEDS: carvediloL 12.5 MG TAB PO SCH ×2 (06:20→17:28)
[2021-06-05] MEDS: SYMBICORT 160-4.5 MCG INHALER INHALATION SCH ×2 (07:49→20:28)
[2021-06-05] MEDS: IPRATROPIUM-ALBUTEROL 3 ML NEB INHALATION SCH ×4 (07:49→20:28)
[2021-06-05] MEDS: HEPARIN SODIUM,PORCINE/PF 5,000 UNIT/0.5 ML SYRINGE SQ SCH ×2 (09:18→20:36)
[2021-06-05] MEDS: amLODIPine 10 MG TAB PO SCH (09:19)
[2021-06-05] MEDS: cloNIDine HCL 0.1 MG TAB PO SCH ×2 (09:19→20:35)
[2021-06-05] MEDS: ASPIRIN 81 MG PO SCH (09:19)
[2021-06-05] MEDS: hydrALAZINE HCL 50 MG TAB PO SCH (09:19)
[2021-06-05] MEDS: HYDROcodone/APAP 7.5-325MG 1 EACH TAB PO PRN ×2 (09:20→17:28)
[2021-06-05] MEDS: FAMOTIDINE 20 MG TAB PO SCH (09:20)
[2021-06-05 11:06] LABS: Potassium 3.3 mmol/L (3.5-5.1)
[2021-06-05] MEDS ORDERED: POTASSIUM CHLORIDE ER 20 MEQ TAB.ER PO ONE (11:18)
[2021-06-05] MEDS ORDERED: Potassium Replacement Protocol 1 EACH MISC MISCELLANE PRN (11:18)
--- NOTE | 2021-06-05 11:31 | P.PN ---
Subjective Progress Note Date: 06/05/21 81-year-old female patient, presented to hospital because of feeling weak, nausea, dry heaves, oral dryness, increased cough. No significant chest pain or shortness of breath. No lightheadedness, dizziness, syncope, angina, palpitations, pleurisy or hemoptysis. Denied having any fever or chills. Emmanuel ed having any nausea vomiting or diarrhea or abdominal pain. She is known to have COPD, obstructive sleep apnea and hypertension and hyperlipidemia. The patient is also known to have mild nonobstructive CAD and based on recent cardiac catheterization from 2017, the patient ejection fraction of 60% with mild nonobstructive CAD involving the proximal LAD. Echo from October 2020 showed an ejection fraction of 50-55% and the patient also had a mild mitral regurgitation. She is also known to have rheumatoid arthritis and skin cancer that has been resected in the form of melanoma and basal cell carcinoma. In emergency, workup has been initiated and the patient had a CBC that was essentially unremarkable. The patient's blood work showed a sodium of 133 with a potassium of 2.5 at a time of admission with a creatinine of 1.65 and a BUN of 38. Troponins were 0.04, 0.03 and 0.03 respectively 3. ProBNP level was 313. TSH was normal. EKG was showing sinus bradycardia, no acute ischemic changes. COVID-19 testing was also negative. The patienthad a chest x-ray that was essentially within normal with some cardiomegaly. UA was abnormal. Evaluation on today's evaluation of 06/05/2021, the patient is feeling much better. Energy level is improved significantly and the patient is working with physical therapy. No more fever. The urine cultures still pending for now. The patient remains on IV Rocephin. No nausea. No vomiting. No diarrhea. No abdominal pain. No chest pain. No other significant events overnight. The electrolytes all within normal limits. Creatinine is normalized and is down to 1.09 with a BUN of 25. COVID-19 testing came back negative. No other sign ificant events overnight. Objective - Vital Signs Vital signs: Vital Signs Temp 98.4 F 06/05/21 08:00 Pulse 68 06/05/21 08:01 Resp 16 06/05/21 08:01 BP 183/79 06/05/21 08:00 Pulse Ox 97 06/05/21 08:00 Intake & Output 06/04/21 06/05/21 06/05/21 18:59 06:59 18:59 Intake Total 350 150 240 Output Total 1000 Balance -650 150 240 Weight 92.986 kg Intake: Intake, IV Titration 150 Amount Sodium Chloride 0.9% 1, 150 000 ml @ 75 mls/hr IV . [id number] [facility] Rx#:[id number] Oral 350 240 Output: Urine 1000 Other: Voiding Method Bedside Commode # Voids 4 1 - Exam Gen. appearance the patient is calm and she is comfortable. breathing is nonlabored Head exam was generally normal. There was no scleral icterus or corneal arcus. Mucous membranes were moist. Neck was supple and without jugular venous distension, thyromegaly, or carotid bruits. Carotids were easily palpable bilaterally. There was no adenopathy. Lungs sounds are diminished bilaterally along with some prolongation of expiratory phase of breathing. There are expiratory wheezes bilaterally. Abdominal exam revealed normal bowel sounds. The abdomen was soft, non-tender, and without masses, organomegaly, or appreciable enlargement of the abdominal aorta. Examination of the extremities revealed easily palpable radial, femoral and pedal pulses. There was no cyanosis, clubbing or edema. The patient has varicose veins bilaterally. Examination of the skin revealed no evidence of significant rashes, suspicious appearing nevi or other concerning lesions. Neurologically the patient is awake and alert and there is no focal neurological deficits. - Labs CBC & Chem 7: 06/04/21 04:06 06/05/21 10:24 Labs: Abnormal Lab Results - Last 24 Hours (Table) 06/05/21 Range/Units 10:24 Potassium 3.3 L (3.5-5.1) mmol/L Chloride 96 L (98-107) mmol/L Carbon Dioxide 34 H (22-30) mmol/L BUN 25 H (7-17) mg/dL Creatinine 1.09 H (0.52-1.04) mg/dL Glucose 152 H (74-99) mg/dL Microbiology - Last 24 Hours (Table) 06/03/21 21:00 Blood Culture - Preliminary Blood No Growth after 24 hours 06/04/21 00:30 Urine Culture - Preliminary Urine,Voided Assessment and Plan Plan: 1 generalized weakness, likely on the basis of an underlying UTI, consider un derlying sepsis awaiting final cultures. The patient clinically is improved. Acute kidney injury is also improved and recovered. 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 14 acute kidney injury, recovering, creatinine is back to normal Plan urine cultures, pending Blood culture, pending negative for now Continue IV Rocephin Cardiology evaluation Resume home medications We'll follow, possible home with home care
--- NOTE | 2021-06-05 12:18 | P.PN ---
Subjective This is a pleasant 81-year-old female past medical history significant for asthma, COPD, hypertension, sleep apnea, hyperlipidemia. And she follows in the office with Dr. Rudolph. We have been asked to see in consultation for elevated troponin. Patient is seen and examined in the emergency department. Patient presents with feeling weak, nausea, dry heaving, and decreased by mouth intake since Friday. She also endorses a cough. She denies any chest pain, shortness of breath, lightheadedness, dizziness, syncope, palpitations. She denies any fever or chills. She denies any abdominal pain or vomiting. Patient denies history of diabetes, CT or stroke. She denies smoking. DIAGNOSTICS Most recent Echo October 2020 revealed 5055% mild mitral regurgitation. Patient had a cardiac catheterization in 2018 which showed mild nonobstructive CAD involving proximal LAD with a ejection fraction of 60%. Labs CBC unremarkable, sodium 133, potassium 2.5 improved 3.3, BUN 38, serum creatinine 1.65, magnesium 2.5, troponin 0.04, 0.03, 0.03, proBNP 313, TSH within normal limits, COVID-19 PCR negative EKG reveals sinus bradycardia, heart rate 53, nonspecific STT wave abnormalities. 06/05/21: Patient seen and examined at bedside, no acute distress. She states she is feeling much better. No carotid bruits of chest pain, shortness of breath, lightheadedness, dizziness. Laboratory data reviewed, sodium 138, potassium 3.3, BUN 25, serum creatinine 1.0. Patient was receiving IV fluids. She's currently maintained on aspirin 81 mg daily, atorvastatin 20 mg nightly, amlodipine 10 mg daily, carvedilol 12.5 mg twice a day, clonidine 0.3 mg twice a day, hydralazine 75 mg 3 times a day. PHYSICAL EXAMINATION Vitals blood pressure 183/79, (SBP was in the 150s yesterday) heart rate 61, afebrile, maintaining oxygen saturations 97% on 3 L nasal cannula CONSTITUTIONAL: No apparent distress. HEENT: Neck Supple. No JVD. CHEST EXAMINATION: Lungs diminished bibasilar, other lung khalil clear to auscultation. No chest wall tenderness is noted on palpation or with deep breathing. HEART EXAMINATION: Regular rate and rhythm. S1, S2 heard. No murmurs, gallops or rub. ABDOMEN: Soft, nontender. Positive bowel sounds. SKIN: intact, no wounds EXTREMITIES: 2+ peripheral pulses, no lower extremity edema NEUROLOGIC EXAMINATION: Patient is awake, alert and oriented x3. ASSESSMENT -Elevated troponin, trend not indicative of acute coronary syndrome -Nausea, Decreased PO Intake -Acute Kidney Injury, improving -Hypokalemia -Dehydration -Mild non-obstructive coronary artery disease -History of Hypertension -History of hyperlipidemia PLAN -Elevated troponin, not indicative of acute coronary syndrome, most likely due to patient's acute kidney injury. -Replace potassium per protocol -Continue to hold PO Lasix -Continue home cardiac medications aspirin, statin, carvedilol, clonidine -No further cardiac workup or adjustments from a cardiology perspective. -Patient to follow up with Dr. Rudolph outpatient, patient has an appointment scheduled on June 26, 2021. Nurse Practitioner note has been reviewed, I agree with a documented findings and plan of care. Patient was seen and examined. Objective - Vital Signs Vital signs: Vital Signs Temp 98.4 F 06/05/21 08:00 Pulse 68 06/05/21 08:01 Resp 16 06/05/21 08:01 BP 183/79 06/05/21 08:00 Pulse Ox 97 06/05/21 08:00 Intake & Output 06/04/21 06/05/21 06/05/21 18:59 06:59 18:59 Intake Total 350 150 240 Output Total 1000 Balance -650 150 240 Weight 92.986 kg Intake: Intake, IV Titration 150 Amount Sodium Chloride 0.9% 1, 150 000 ml @ 75 mls/hr IV . [id number] [facility] Rx#:[id number] Oral 350 240 Output: Urine 1000 Other: Voiding Method Bedside Commode # Voids 4 1 - Labs CBC & Chem 7: 06/04/21 04:06 06/05/21 10:24 Labs: Abnormal Lab Results - Last 24 Hours (Table) 06/05/21 Range/Units 10:24 Potassium 3.3 L (3.5-5.1) mmol/L Chloride 96 L (98-107) mmol/L Carbon Dioxide 34 H (22-30) mmol/L BUN 25 H (7-17) mg/dL Creatinine 1.09 H (0.52-1.04) mg/dL Glucose 152 H (74-99) mg/dL Microbiology - Last 24 Hours (Table) 06/03/21 21:00 Blood Culture - Preliminary Blood No Growth after 24 hours 06/04/21 00:30 Urine Culture - Preliminary Urine,Voided
--- NOTE | 2021-06-05 12:21 | P.PN ---
Subjective This is a pleasant 81 years old female with past medical history of COPD AND CHRONIC HYPOXIC RESPIRATORY FAILURE ON 2.5 L OXYGEN , SHE FOLLOWS UP WITH DR. MURPHY. GERD, Hyperlipidemia, Hypertension, Osteoarthritis (OA), Pulmonary Embolus not on anticoagulation, Rheumatoid Arthritis (RA), Sleep Apnea/CPAP/BIPAP, hypothyroidism, history of basal cell carcinoma of the skin resected, history of melanoma of the skin involving the back, resected, Presents because of nausea, decreased appetite and generalized weakness. Patient states over the last week she was getting episodes of feeling hot with chills with lightheadedness, she does not want to eat but she drinks LIQUIDS. Also she reports worsening of her dyspnea and orthopnea over the last week with worsening cough than usual, she has chronic cough and clear phlegm. She denies any urinary tract symptoms, no dysuria or urgency or hesitancy. No suprapubic tenderness or discomfort. No new back pain. He is really she has constipation however she had 1-2 days episodes of diarrhea which is resolved now, over the last 2 days she did not have bowel movement. She denies any abdominal pain or vomiting. No alcohol, smoking or illicit drugs. Patient not on CPAP. Vitas looks stable, she is to keep liquids breathing rate 20-24, blood pressure 179/84 Labs show unremarkable CBC, INR, low potassium 2.5 came back to 3.3. No sodium 133 and 136. Height creatinine 1.65 came down to 1.36 Urinalysis is suspicious of infection. Coronal virus however is not detected. Troponin elevated 0.04 and 0.035. Her last one was normal 0.030. EKG shows sinus bradycardia at [address]-T changes and QTC 487. Chest x-ray: Cardiomegaly On admission patient received normal saline. Patient was started on aspirin Cardiology team were consulted 06/05/2021 Patient still with generalized weakness, no overt urinary symptoms. No chest pain or dyspnea., However patient feels some heartburn. She is hemodynamically stable, blood pressure elevated 183/79. Hydralazine 50 mg 3 times a day increased to 75 mg. Creatinine back to normal at 1.0, stop IV fluid, patient still might have el ements of chronic kidney disease. Oral Lasix and hold, continue with ceftriaxone, urine culture is negative however urine analysis was repeated a still abnormal. Cardiology recommended no further cardiac workup and elevated troponin related to renal disease. Continue with home oxygen of 30 L/m. Physical therapy: Pending Objective - Vital Signs Vital signs: Vital Signs Temp 98.4 F 06/05/21 08:00 Pulse 68 06/05/21 08:01 Resp 16 06/05/21 08:01 BP 183/79 06/05/21 08:00 Pulse Ox 97 06/05/21 08:00 Intake & Output 06/04/21 06/05/21 06/05/21 18:59 06:59 18:59 Intake Total 350 150 240 Output Total 1000 Balance -650 150 240 Weight 92.986 kg Intake: Intake, IV Titration 150 Amount Sodium Chloride 0.9% 1, 150 000 ml @ 75 mls/hr IV . [id number] [facility] Rx#:[id number] Oral 350 240 Output: Urine 1000 Other: Voiding Method Bedside Commode # Voids 4 1 - Exam -GENERAL: The patient is alert and oriented x3, not in any acute distress. Well developed, well nourished. Mild general weakness HEENT: Pupils are round and equally reacting to light. EOMI. No scleral icterus. No conjunctival pallor. Normocephalic, atraumatic. No pharyngeal erythema. No thyromegaly. CARDIOVASCULAR: S1 and S2 present. No murmurs, rubs, or gallops. PULMONARY: Chest is clear to auscultation, no wheezing or crackles. ABDOMEN: Soft, nontender, nondistended, normoactive bowel sounds. No palpable organomegaly. MUSCULOSKELETAL: No joint swelling or deformity. EXTREMITIES: No cyanosis, clubbing, or pedal edema. NEUROLOGICAL: Gross neurological examination did not reveal any focal deficits. SKIN: No rashes. no petechiae. - Labs CBC & Chem 7: 06/04/21 04:06 06/05/21 10:24 Labs: Abnormal Lab Results - Last 24 Hours (Table) 06/05/21 Range/Units 10:24 Potassium 3.3 L (3.5-5.1) mmol/L Chloride 96 L (98-107) mmol/L Carbon Dioxide 34 H (22-30) mmol/L BUN 25 H (7-17) mg/dL Creatinine 1.09 H (0.52-1.04) mg/dL Glucose 152 H (74-99) mg/dL Microbiology - Last 24 Hours (Table) 06/03/21 21:00 Blood Culture - Preliminary Blood No Growth after 24 hours 06/04/21 00:30 Urine Culture - Preliminary Urine,Voided Assessment and Plan Assessment: Acute COPD exacerbation Possible Acute urinary tract infection, versus asymptomatic bacteriuria Elevated troponin, cardiac causes were ruled out hypokalemia Chronic hypoxic respiratory failure Acute kidney injury Hypertension Hyperlipidemia History of COPD/asthma, not acute exacerbation History of osteoarthritis History of PE, not on anticoagulation History of rheumatoid arthritis History of sleep apnea Hypothyroidism Plan: This is a pleasant 81 years old female who presents with a gait I an elevated troponin and UTI. Continue with aspirin and cardiology consult Discontinue Continue with IV fluids, hold Lasix and Aldactone Continue with ceftriaxone with follow-up urine culture Add Symbicort and pulmonary consult, bronchodilators Labs and medication were reviewed.. Continue same treatment. Continue with symptomatic treatment. Resume home medication. Monitor lytes and vitals. DVT and GI prophylaxis. Further recommendations depends on the clinical course of the patient DVT prophylaxis: Subcutaneous heparin GI Prophylaxis: Pepcid PT/OT: Pending Prognosis is guarded
[2021-06-05] MEDS: hydrALAZINE HCL 25 MG TAB PO SCH ×2 (17:27→23:05)
[2021-06-05] MEDS: ATORVASTATIN 20 MG TAB PO SCH (20:35)
[2021-06-05] MEDS: MIRTAZAPINE 15 MG TAB PO SCH (20:35)
[2021-06-05] MEDS: SERTRALINE 50 MG TAB PO SCH (20:35)
[2021-06-05] MEDS: AMPICILLIN-SULBACTAM 3 GM in SODIUM CHLORIDE 0.9% 100 ML IVPB SCH (20:36)
[2021-06-05] MEDS: ONDANSETRON 4 MG/2 ML VIAL IVP PRN (20:37)
[2021-06-06] MEDS: ONDANSETRON 4 MG/2 ML VIAL IVP PRN ×3 (03:15→23:32)
[2021-06-06] MEDS: AMPICILLIN-SULBACTAM 3 GM in SODIUM CHLORIDE 0.9% 100 ML IVPB SCH ×4 (03:15→18:38)
[2021-06-06] MEDS ORDERED: MORPHINE SULFATE 2 MG/ML SYRINGE IVP STA (04:11)
[2021-06-06] MEDS ORDERED: KETOROLAC 15 MG/ML 1 ML VIAL IVP PRN (04:28)
[2021-06-06] MEDS ORDERED: KETOROLAC 15 MG/ML 1 ML VIAL IVP SCH (06:00)
[2021-06-06] MEDS: LEVOTHYROXINE 125 MCG TAB PO SCH (06:27)
[2021-06-06] MEDS: carvediloL 12.5 MG TAB PO SCH ×2 (06:27→17:29)
[2021-06-06] MEDS: HYDROcodone/APAP 7.5-325MG 1 EACH TAB PO PRN (06:32)
[2021-06-06] MEDS: SYMBICORT 160-4.5 MCG INHALER INHALATION SCH ×2 (08:16→20:23)
[2021-06-06] MEDS: IPRATROPIUM-ALBUTEROL 3 ML NEB INHALATION SCH ×4 (08:16→20:23)
[2021-06-06] MEDS: cloNIDine HCL 0.1 MG TAB PO SCH ×2 (08:41→20:08)
[2021-06-06] MEDS: ASPIRIN 81 MG PO SCH (08:41)
[2021-06-06] MEDS: hydrALAZINE HCL 25 MG TAB PO SCH ×3 (08:41→20:08)
[2021-06-06] MEDS: HEPARIN SODIUM,PORCINE/PF 5,000 UNIT/0.5 ML SYRINGE SQ SCH ×2 (08:41→20:26)
[2021-06-06] MEDS: FAMOTIDINE 20 MG TAB PO SCH (08:41)
[2021-06-06] MEDS: amLODIPine 10 MG TAB PO SCH (08:42)
--- NOTE | 2021-06-06 09:20 | XR ---
EXAMINATION TYPE: XR abdomen 2V DATE OF EXAM: 06/06/2021 COMPARISON: NONE HISTORY: Pain and bloating TECHNIQUE: One view abdominal series FINDINGS: Bibasilar infiltrates. Surgical clips right upper quadrant. Numerous dilated small bowel loops with a ir-fluid levels. Surgical clips right upper quadrant. Air is seen within the rectum. Arthropathy of t he hips and degenerative change of the spine. Vascular calcification of the aorta. Abdominal aortic a neurysm suspected. Additional vascular calcifications noted. IMPRESSION: 1. Multiple dilated small bowel loops correlate for obstruction or severe ileus. 2. Suspect abdominal aortic aneurysm correlate clinically. 3. Bibasilar atelectasis or infiltrate.
[2021-06-06] MEDS ORDERED: Magnesium Replacement Protocol 1 EACH MISC MISCELLANE PRN (09:43)
--- NOTE | 2021-06-06 09:49 | P.PN ---
Subjective This is a pleasant 81 years old female with past medical history of COPD AND CHRONIC HYPOXIC RESPIRATORY FAILURE ON 2.5 L OXYGEN , SHE FOLLOWS UP WITH DR. MURPHY. GERD, Hyperlipidemia, Hypertension, Osteoarthritis (OA), Pulmonary Embolus not on anticoagulation, Rheumatoid Arthritis (RA), Sleep Apnea/CPAP/BIPAP, hypothyroidism, history of basal cell carcinoma of the skin resected, history of melanoma of the skin involving the back, resected, Presents because of nausea, decreased appetite and generalized weakness. Patient states over the last week she was getting episodes of feeling hot with chills with lightheadedness, she does not want to eat but she drinks LIQUIDS. Also she reports worsening of her dyspnea and orthopnea over the last week with worsening cough than usual, she has chronic cough and clear phlegm. She denies any urinary tract symptoms, no dysuria or urgency or hesitancy. No suprapubic tenderness or discomfort. No new back pain. He is really she has constipation however she had 1-2 days episodes of diarrhea which is resolved now, over the last 2 days she did not have bowel movement. She denies any abdominal pain or vomiting. No alcohol, smoking or illicit drugs. Patient not on CPAP. Vitas looks stable, she is to keep liquids breathing rate 20-24, blood pressure 179/84 Labs show unremarkable CBC, INR, low potassium 2.5 came back to 3.3. No sodium 133 and 136. Height creatinine 1.65 came down to 1.36 Urinalysis is suspicious of infection. Coronal virus however is not detected. Troponin elevated 0.04 and 0.035. Her last one was normal 0.030. EKG shows sinus bradycardia at [address]-T changes and QTC 487. Chest x-ray: Cardiomegaly On admission patient received normal saline. Patient was started on aspirin Cardiology team were consulted 06/05/2021 Patient still with generalized weakness, no overt urinary symptoms. No chest pain or dyspnea., However patient feels some heartburn. She is hemodynamically stable, blood pressure elevated 183/79. Hydralazine 50 mg 3 times a day increased to 75 mg. Creatinine back to normal at 1.0, stop IV fluid, patient still might have el ements of chronic kidney disease. Oral Lasix and hold, continue with ceftriaxone, urine culture is negative however urine analysis was repeated a still abnormal. Cardiology recommended no further cardiac workup and elevated troponin related to renal disease. Continue with home oxygen of 30 L/m. Physical therapy: Pending 06/06/2021 Patient today developed severe abdominal periumbilical pain started last night with significant nausea, vomited once. No bowel movement over the last 2 days, no passing gas. Baseline bowel movement is every 2-3 days. Also her abdomen was distended and tender on examination. Abdominal x-ray showed dilated loops suspicious for bowel obstruction. Patient was placed nothing by mouth, IV fluid and pain medication. Surgery team consulted. Other than that she is doing well from cardiology and pulmonary perspective for discharge yesterday Urine culture came pulmonary results for enterococcus, antibiotics were adjusted to Unasyn for now. Start the patient on normal saline at 75 mL/h Monitor potassium and magnesium. Physical therapy pending Review of systems CONSTITUTIONAL: No fever, no malaise, no fatigue. HEENT: No recent visual problems or hearing problems. Denied any sore throat. CARDIOVASCULAR: No orthopnea, PND, no palpitations, no syncope. PULMONARY: No shortness of breath, no cough, no hemoptysis. GASTROINTESTINAL: No diarrhea, no hematemesis. Normoactive bowel sounds. Active Medications Generic Name Dose Route Start Last Admin Trade Name Freq PRN Reason Stop Dose Admin Hydrocodone Bitart/Acetaminophen 1 each 06/04/21 15:22 06/06/21 06:32 Hydrocodone/Apap 7.5-325mg 1 Each Tab PO 1 each TID PRN Administration Pain Hydrocodone Bitart/Acetaminophen 1 each 06/04/21 15:23 Hydrocodone/Apap 7.5-325mg 1 Each Tab PO Q8HR PRN Pain Albuterol/Ipratropium 3 ml 06/04/21 08:24 06/04/21 16:18 Ipratropium-Albuterol 3 Ml Neb INHALATION 3 ml RT-QID PRN Administration Shortness Of Breath Or Wheezing Albuterol/Ipratropium 3 ml 06/04/21 20:00 06/06/21 08:16 Ipratropium-Albuterol 3 Ml Neb INHALATION Not Given RT-QID [facility] Amlodipine Besylate 10 mg 06/04/21 09:00 06/06/21 08:42 Amlodipine 10 Mg Tab PO 10 mg DAILY [facility] Administration Aspirin 81 mg 06/04/21 09:00 06/06/21 08:41 Aspirin 81 Mg PO 81 mg DAILY [facility] Administration Atorvastatin Calcium 20 mg 06/04/21 21:00 06/05/21 20:35 Atorvastatin 20 Mg Tab PO 20 mg HS [facility] Administration Budesonide/Formoterol Fumarate 2 puff 06/04/21 20:00 06/06/21 08:16 Symbicort 160-4.5 Mcg Inhaler INHALATION Not Given RT-BID [facility] Carvedilol 12.5 mg 06/04/21 07:30 06/06/21 06:27 Carvedilol 12.5 Mg Tab PO 12.5 mg BID-W/MEALS [facility] Administration Clonidine 0.3 mg 06/04/21 09:00 06/06/21 08:41 Clonidine Hcl 0.1 Mg Tab PO 0.3 mg BID [facility] Administration Famotidine 20 mg 06/05/21 09:00 06/06/21 08:41 Famotidine 20 Mg Tab PO 20 mg DAILY [facility] Administration Heparin Sodium (Porcine) 5,000 unit 06/04/21 09:00 06/06/21 08:41 Heparin Sodium,Porcine/Pf 5,000 Unit/0.5 Ml Syringe SQ 5,000 unit Q12HR [facility] Administration Hydralazine HCl 25 mg 06/04/21 09:48 06/04/21 18:45 Hydralazine Hcl 25 Mg Tab PO 25 mg QID PRN Administration Blood Pressure - High Hydralazine HCl 75 mg 06/05/21 16:00 06/06/21 08:41 Hydralazine Hcl 25 Mg Tab PO 75 mg TID [facility] Administration Ampicillin Sodium/Sulbactam 100 mls @ 200 mls/hr 06/05/21 19:15 06/06/21 08:38 Sodium 3 gm/ Sodium Chloride IVPB 200 mls/hr Q6HR [facility] Administration Dextrose/Sodium Chloride 1,000 mls @ 75 mls/hr 06/06/21 10:00 Dextrose 5%-Ns Iv Soln IV .[id number] [facility] Levothyroxine Sodium 125 mcg 06/04/21 06:30 06/06/21 06:27 Levothyroxine 125 Mcg Tab PO 125 mcg DAILY@0630 [facility] Administration Mirtazapine 15 mg 06/04/21 21:00 06/05/21 20:35 Mirtazapine 15 Mg Tab PO 15 mg HS [facility] Administration Miscellaneous Information 1 each 06/05/21 11:18 Potassium Replacement Protocol 1 Each [facility] [place] MISCELLANE DAILY PRN Per Protocol Protocol Miscellaneous Information 1 each 06/06/21 09:43 Magnesium Replacement Protocol 1 Each [facility] [place] MISCELLANE DAILY PRN Per Protocol Protocol Morphine Sulfate 4 mg 06/06/21 08:25 Morphine Sulfate 4 Mg/Ml Syringe IVP Q4HR PRN Pain Ondansetron HCl 4 mg 06/03/21 22:41 06/06/21 03:15 Ondansetron 4 Mg/2 Ml Vial IVP 4 mg Q8HR PRN Administration Nausea And Vomiting Sertraline HCl 50 mg 06/04/21 21:00 06/05/21 20:35 Sertraline 50 Mg Tab PO 50 mg HS [facility] Administration Objective - Vital Signs Vital signs: Vital Signs Temp 98.2 F 06/06/21 08:00 Pulse 71 06/06/21 08:00 Resp 20 06/06/21 08:00 BP 173/72 06/06/21 08:00 Pulse Ox 97 06/06/21 08:00 Intake & Output 06/05/21 06/06/21 06/06/21 18:59 06:59 18:59 Intake Total 480 325 100 Output Total 300 Balance 180 325 100 Intake: Intake, IV Titration 325 100 Amount Ampicillin-Sulbactam 3 gm 100 100 In Sodium Chloride 0.9% 100 ml @ 200 mls/hr IVPB Q6HR [facility] Rx#:[id number] Sodium Chloride 0.9% 1, 225 000 ml @ 75 mls/hr IV . [id number] [facility] Rx#:[id number] Oral 480 Output: Urine 300 Other: Voiding Method Bedside Commode # Voids 2 1 - Exam -GENERAL: The patient is alert and oriented x3, not in any acute distress. Well developed, well nourished. Mild general weakness HEENT: Pupils are round and equally reacting to light. EOMI. No scleral icterus. No conjunctival pallor. Normocephalic, atraumatic. No pharyngeal erythema. No thyromegaly. CARDIOVASCULAR: S1 and S2 present. No murmurs, rubs, or gallops. PULMONARY: Chest is clear to auscultation, no wheezing or crackles. -ABDOMEN: Soft, distended with periumbilical tenderness, normoactive bowel sounds. No palpable organomegaly. MUSCULOSKELETAL: No joint swelling or deformity. EXTREMITIES: No cyanosis, clubbing, or pedal edema. NEUROLOGICAL: Gross neurological examination did not reveal any focal deficits. SKIN: No rashes. no petechiae. - Labs CBC & Chem 7: 06/04/21 04:06 06/05/21 10:24 Labs: Abnormal Lab Results - Last 24 Hours (Table) 06/05/21 Range/Units 10:24 Potassium 3.3 L (3.5-5.1) mmol/L Chloride 96 L (98-107) mmol/L Carbon Dioxide 34 H (22-30) mmol/L BUN 25 H (7-17) mg/dL Creatinine 1.09 H (0.52-1.04) mg/dL Glucose 152 H (74-99) mg/dL Microbiology - Last 24 Hours (Table) 06/03/21 21:00 Blood Culture - Preliminary Blood No Growth after 48 hours 06/04/21 00:30 Urine Culture - Preliminary Urine,Voided Group D Enterococcus Assessment and Plan Assessment: Acute bowel obstruction enterococcus urinary tract infection Acute COPD exacerbation, mild improved Elevated troponin, cardiac causes were ruled out hypokalemia Chronic hypoxic respiratory failure Acute kidney injury Hypertension Hyperlipidemia History of COPD/asthma, not acute exacerbation History of osteoarthritis History of PE, not on anticoagulation History of rheumatoid arthritis History of sleep apnea Hypothyroidism Plan: This is a pleasant 81 years old female who presents with a gait I an elevated troponin and UTI. Nothing by mouth, IV fluids and pain medication and surgical consult. Continue with Unasyn and follow-up final urine culture results. Continue gentle hydration Continue with Symbicort. Pulmonary team on the case Labs and medication were reviewed.. Continue same treatment. Continue with symptomatic treatment. Resume home medication. Monitor lytes and vitals. DVT and GI prophylaxis. Further recommendations depends on the clinical course of the patient DVT prophylaxis: Subcutaneous heparin GI Prophylaxis: Pepcid PT/OT: Pending Prognosis is guarded
[2021-06-06 10:47] LABS: Potassium 3.2 mmol/L (3.5-5.1)
[2021-06-06] MEDS: MORPHINE SULFATE 4 MG/ML SYRINGE IVP PRN ×2 (11:28→16:28)
[2021-06-06] MEDS: DEXTROSE 5%-0.9% NACL 1,000 ML IV SCH (11:28)
[2021-06-06] MEDS: IOPAMIDOL CONTRAST (ORAL USE) VIAL PO PRN ×2 (11:48→13:00)
--- NOTE | 2021-06-06 11:48 | P.PN ---
Subjective Progress Note Date: 06/06/21 81-year-old female patient, presented to hospital because of feeling weak, nausea, dry heaves, oral dryness, increased cough. No significant chest pain or shortness of breath. No lightheadedness, dizziness, syncope, angina, palpitations, pleurisy or hemoptysis. Denied having any fever or chills. Emmanuel ed having any nausea vomiting or diarrhea or abdominal pain. She is known to have COPD, obstructive sleep apnea and hypertension and hyperlipidemia. The patient is also known to have mild nonobstructive CAD and based on recent cardiac catheterization from 2017, the patient ejection fraction of 60% with mild nonobstructive CAD involving the proximal LAD. Echo from October 2020 showed an ejection fraction of 50-55% and the patient also had a mild mitral regurgitation. She is also known to have rheumatoid arthritis and skin cancer that has been resected in the form of melanoma and basal cell carcinoma. In emergency, workup has been initiated and the patient had a CBC that was essentially unremarkable. The patient's blood work showed a sodium of 133 with a potassium of 2.5 at a time of admission with a creatinine of 1.65 and a BUN of 38. Troponins were 0.04, 0.03 and 0.03 respectively 3. ProBNP level was 313. TSH was normal. EKG was showing sinus bradycardia, no acute ischemic changes. COVID-19 testing was also negative. The patienthad a chest x-ray that was essentially within normal with some cardiomegaly. UA was abnormal. Evaluation on today's evaluation of 06/05/2021, the patient is feeling much better. Energy level is improved significantly and the patient is working with physical therapy. No more fever. The urine cultures still pending for now. The patient remains on IV Rocephin. No nausea. No vomiting. No diarrhea. No abdominal pain. No chest pain. No other significant events overnight. The electrolytes all within normal limits. Creatinine is normalized and is down to 1.09 with a BUN of 25. COVID-19 testing came back negative. No other sign ificant events overnight. On today's evaluation of 06/06/2021, the patient is being treated for an enterococcal UTI. Urine culture came back positive for enterococcus and the patient wasto Unasyn. Nevertheless, as of yesterday, the patient developed some periumbilical pain that was quite achy and crampy. She hasn't had a bowel movement for the past 2-3 days. Flat film of the abdomen was done and showed some dilated loops of bowel. Gen. surgery consultation was obtained and a CAT scan of the abdomen and pelvis is in progress. Otherwise, electrodes are normal, her potassium level is at 3.2 that needs to be replaced, creatinine is at 1.1. She is on Unasyn regarding her enterococcal UTI. No nausea. No vomiting. No fever. No chills. IV fluids are in the form of [id number] at the rate of 75mL an hour. The patient is also working with physical therapy. She is on oxygen at 3 L per minute nasal cannula. Objective - Vital Signs Vital signs: Vital Signs Temp 98.2 F 06/06/21 08:00 Pulse 71 06/06/21 08:00 Resp 20 06/06/21 08:00 BP 173/72 06/06/21 08:00 Pulse Ox 97 06/06/21 08:00 Intake & Output 06/05/21 06/06/21 06/06/21 18:59 06:59 18:59 Intake Total 480 325 100 Output Total 300 Balance 180 325 100 Intake: Intake, IV Titration 325 100 Amount Ampicillin-Sulbactam 3 gm 100 100 In Sodium Chloride 0.9% 100 ml @ 200 mls/hr IVPB Q6HR [facility] Rx#:[id number] Sodium Chloride 0.9% 1, 225 000 ml @ 75 mls/hr IV . [id number] [facility] Rx#:[id number] Oral 480 Output: Urine 300 Other: Voiding Method Bedside Commode # Voids 2 1 - Exam Gen. appearance the patient is calm and she is comfortable. breathing is nonlabored Head exam was generally normal. There was no scleral icterus or corneal arcus. Mucous membranes were moist. Neck was supple and without jugular venous distension, thyromegaly, or carotid bruits. Carotids were easily palpable bilaterally. There was no adenopathy. Lungs sounds are diminished bilaterally along with some prolongation of exp iratory phase of breathing. There are expiratory wheezes bilaterally. Abdominal exam revealed normal bowel sounds. The abdomen was soft, non-tender, and without masses, organomegaly, or appreciable enlargement of the abdominal aorta. Examination of the extremities revealed easily palpable radial, femoral and pedal pulses. There was no cyanosis, clubbing or edema. The patient has varicose veins bilaterally. Examination of the skin revealed no evidence of significant rashes, suspicious appearing nevi or other concerning lesions. Neurologically the patient is awake and alert and there is no focal neurological deficits. - Labs CBC & Chem 7: 06/04/21 04:06 06/06/21 09:38 Labs: Abnormal Lab Results - Last 24 Hours (Table) 06/06/21 06/06/21 Range/Units 09:38 09:38 Potassium 3.2 L (3.5-5.1) mmol/L Carbon Dioxide 31 H (22-30) mmol/L BUN 19 H (7-17) mg/dL Creatinine 1.11 H (0.52-1.04) mg/dL Glucose 150 H (74-99) mg/dL Magnesium 2.4 H (1.6-2.3) mg/dL Microbiology - Last 24 Hours (Table) 06/03/21 21:00 Blood Culture - Preliminary Blood No Growth after 48 hours 06/04/21 00:30 Urine Culture - Preliminary Urine,Voided Group D Enterococcus Assessment and Plan Plan: 1 generalized weakness, likely on the basis of an underlying UTI as the patient was found to have enterococcus group B in the urine and the patient was switched to Unasyn. Currently being investigated for an abdominal pain, periumbilical, given morphine for pain control, currently free of any abdominal pain and the patient will have a CAT scan of the abdomen and pelvis today with by mouth contrast., 2 COPD currently inactive in stable and the patient has chronic dyspnea has been vaccinated for COVID-19 3 coronary artery disease with nonocclusive disease based on a cardiac catheterization from 2018 with mild disease involving the LAD, preserved LV function 4 rheumatoid arthritis 5 obstructive sleep apnea nontolerant to CPAP therapy 6 history of skin cancer in the form of squamous cell carcinoma and basal cell carcinoma and melanoma, all resected 8 history of diverticular disease 9 acid reflux 10 remote history of pulmonary embolism, in a postoperative setting 11 hypertension 12 hypothyroidism 13 Chronic back pain has been on [place] 7.5 and she'll be given 1 tablet every 24 hours on an as-needed basis for ongoing pain. 14 acute kidney injury, recovering, creatinine is back to normal 15 abdominal pain currently under investigation Plan Continue Unasyn CAT scan of the abdomen and pelvis with oral contrast Urine cultures were noted Working with physical therapy General surgery consultation Replace potassium We'll continue to follow
[2021-06-06] MEDS ORDERED: METOCLOPRAMIDE 5 MG/ML 2 ML VIAL IVP STA (13:07)
[2021-06-06] MEDS: PROMETHAZINE 25 MG TAB PO PRN (13:18)
--- NOTE | 2021-06-06 13:34 | P.GSCN ---
History of Present Illness Consult date: 06/06/21 History of present illness: CHIEF COMPLAINT: Weakness Reason for consult bowel obstruction HISTORY OF PRESENT ILLNESS: This is a 81-year-old female who initially presented to the hospital with complaints of weakness. She is currently being treated for a UTI with enterococcus. She's also been having hypokalemia. Yesterday patient started having sharp abdominal pains in the center of her abdomen. She reports she's been having dry heaves and nausea. Her last bowel movement was 2 days ago and it was a large bowel movement. Abdominal x-ray completed showing multiple dilated small bowel loops correlate for obstruction or severe ileus. Patient does have prior history of bowel obstructions. Most of them have been treated conservatively. She did require a bowel resection several years ago. Patient has had multiple abdominal surgeries. She denies any fever chills or sweats. Denies any burning with urination. PAST MEDICAL HISTORY: COPD, service of apnea, hypertension and hyperlipidemia, coronary artery disease, rheumatoid arthritis, skin cancer melanoma and basal cell carcinoma, hypothyroidism, diverticulosis, PE in postoperative setting and is not on any anticoagulation PAST SURGICAL HISTORY: Bowel resection, cholecystectomy, hiatal hernia repair, abdominal hernia repair, hysterectomy MEDICATIONS: See list. ALLERGIES: See list. SOCIAL HISTORY: No illicit drug use. REVIEW OF SYSTEMS: CONSTITUTIONAL: Denies fever or chills. HEENT: Denies blurred vision, vision changes, or eye pain. Denies hemoptysis CARDIOVASCULAR: Denies chest pain or pressure. RESPIRATORY: No shortness of breath. GASTROINTESTINAL: See HPI for pertinent findings HEMATOLOGIC: Denies bleeding disorders. GENITOURINARY: Denies any blood in urine or increased urinary frequency. SKIN: Denies pruitis. Denies rash. PHYSICAL EXAM: VITAL SIGNS: Reviewed GENERAL: Well-developed in no acute distress. HEENT: No sclera icterus. Extraocular movements grossly intact. Moist buccal mucosa. Head is atraumatic, normocephalic. No nasal drainage. ABDOMEN: Soft. Mildly distended. left mid abdominal tenderness. Patient does have evidence of yeast infection in skin folds. Skin has broken down. NEUROLOGIC: Alert and oriented. Cranial nerves II through XII grossly intact. LABORATORY DATA: WBC 9.4 hemoglobin 12.8 sodium 138 potassium 3.2 BUN 19 creatinine 1.11 magnesium 2.4 Urine cultures group D enterococcus IMAGING: Abdominal x-ray showing multiple dilated small bowel loops correlate for obstruction or severe ileus. Suspect abdominal aortic aneurysm. Bibasilar atelectasis or infiltrate ASSESSMENT: 1. Abdominal pain 2. Possible small bowel obstruction versus severe ileus 3. Multiple abdominal surgeries 4. Prior history of bowel obstruction requiring bowel resection 5. UTI 6. Hypokalemia PLAN: -Check a computed tomography scan of the abdomen and pelvis with oral contrast for further evaluation of patient's abdominal pain and possible small bowel obstruction versus ileus -Keep patient nothing by mouth -Continue to correct potassium -Continue antibiotics for UTI -Further recommendations forthcoming per surgeon depending on computed tomography scan results Thank you for this consultation Physician Decontamination Technician note has been reviewed by physician. Signing provider agrees with the documented findings, assessment, and plan of care. Past Medical History Past Medical History: Asthma, Cancer, Heart Failure, COPD, GERD/Reflux, Hyperlipidemia, Hypertension, Osteoarthritis (OA), Pneumonia, Pulmonary Embolus (PE), Rheumatoid Arthritis (RA), Sleep Apnea/CPAP/BIPAP, Thyroid Disorder Additional Past Medical History / Comment(s): COPD/asthma, chronic cough, hypothyroidism, history of basal cell carcinoma of the skin resected, history of melanoma of the skin involving the back, resected, history of diverticulosis/diverticulitis, history of fibrocystic disease, obstructive sleep apnea can sleep with the CPAP, varicose veins in lower extremities, hypothyroidism History of Any Multi-Drug Resistant Organisms: None Reported Past Surgical History: Bladder Surgery, Bowel Resection, Cholecystectomy, Heart Catheterization, Hernia Repair, Hysterectomy, Joint Replacement, Orthopedic Surgery Additional Past Surgical History / Comment(s): LEFT KNEE REPLACED, PARTIAL THYROIDECTOMY,HIATAL HERNIA REPAIR 07/2013, ABDOMINAL HERNIA REPAIR,MULTIPLE SKIN LESIONS-PT STATED HAS HAS BASAL,SQUAMOUS AND MELANOMA SKIN CA ( NECK,RT UPPER & LOWER THIGH,LT ARM,RT ARM, face, back-melanoma)SKIN GRAFTS TO VINOD.LEGS- LT EAR-LT MIDDLE FINGER,ACHILLES TENDON surgery. RT OVARY 1 TUBE REMOVED, SIGMOID RESECTION D/T BOWEL OBSTRUCTION,RT LITLE FINGER AMP, Past Anesthesia/Blood Transfusion Reactions: Previous Problems w/ Anesthesia, Motion Sickness, Postoperative Nausea & Vomiting (PONV) Additional Past Anesthesia/Blood Transfusion Reaction / Comm: STATES "HAS HAD SWELLING TO FACE,HANDS,ARMS AND SKIN TURNS "BEET RED"WITH ANESTHESIA-with IV sedation. states no problems with last surgery at [facility] 01/2017-anesthesia records on chart Past Psychological History: Anxiety Smoking Status: Former smoker Past Alcohol Use History: None Reported Additional Past Alcohol Use History / Comment(s): STARTED SMOKING 1963 AND QUIT 1973 SMOKED 1 PPD Past Drug Use History: None Reported - Past Family History Mother Family Medical History: Diabetes Mellitus Additional Family Medical History / Comment(s): HEART PROBLEMS Sister(s) Family Medical History: Diabetes Mellitus, Myocardial Infarction (ME) Additional Family Medical History / Comment(s): EMPHYSEMA Father Family Medical History: Cancer Additional Family Medical History / Comment(s): LUNG CA. Medications and Allergies Home Medications Medication Instructions Recorded Confirmed Type Colon Probiotic 1 tab PO DAILY 10/18/20 06/03/21 History Levothyroxine Sodium [Synthroid] 125 mcg PO DAILY 10/18/20 06/03/21 History Simvastatin 40 mg PO HS 10/18/20 06/03/21 History amLODIPine [Norvasc] 10 mg PO DAILY 10/18/20 06/03/21 History Mirtazapine [Remeron] 15 mg PO HS #30 tab 10/22/20 06/03/21 Rx carvediloL [Coreg*] 12.5 mg PO BID-W/MEALS #60 tab 10/22/20 06/03/21 Rx Albuterol Sulfate [Albuterol 2 puff PO RT-Q6H PRN 06/03/21 06/03/21 History Sulfate Hfa] Clotrimazole/Betamethasone Dip 1 applic TOPICAL BID 06/03/21 06/03/21 History [Lotrisone Cream] Elderberry Fruit and Flower [Black 1 cap PO BID 06/03/21 06/03/21 History Elderberry 575 mg Cap] HYDROcodone/APAP 7.5-325MG [[place] 1 tab PO TID PRN 06/03/21 06/03/21 History 7.5-325] Sertraline [Zoloft] 50 mg PO HS 06/03/21 06/03/21 History Spironolactone 25 mg PO DAILY 06/03/21 06/03/21 History cloNIDine HCL [Catapres] 0.3 mg PO BID 06/03/21 06/03/21 History Budesonide-Formot 160-4.5 Mcg 2 puff INHALATION RT-BID #1 inh 06/05/21 Rx [Symbicort 160-4.5 Mcg Inhaler] Cefuroxime Axetil [Ceftin] 500 mg PO BID 3 Days #6 tab 06/05/21 Rx hydrALAZINE HCL [Apresoline] 75 mg PO TID #270 tab 06/05/21 Rx Allergies Allergy/AdvReac Type Severity Reaction Status Date / Time adhesive Allergy SKIN Verified 06/03/21 22:03 REDDENS & BLISTERS- PAPER TAPE OKAY azithromycin [From Zithromax] Allergy Nausea & Verified 06/03/21 22:03 Vomiting meperidine HCl [From Demerol] Allergy Nausea & Verified 06/03/21 22:03 Vomiting morphine Allergy Nausea & Verified 06/03/21 22:03 Vomiting Sulfa (Sulfonamide Allergy Nausea & Verified 06/03/21 22:03 Antibiotics) Vomiting aspirin AdvReac STOMACH Verified 06/03/21 22:03 HERRERA anesthesia Allergy facial/arms/hands Uncoded 06/03/21 22:03 swelling,skin"turns beet red", nausea DISSOLVING SUTURES Allergy INFECTION Uncoded 06/03/21 22:03 Surgical - Exam Vital Signs Temp Pulse Resp BP Pulse Ox 98.9 F 64 18 174/74 94 L 06/03/21 19:37 06/03/21 19:37 06/03/21 19:37 06/03/21 19:37 06/03/21 19:37 Results - Labs 06/04/21 04:06 06/06/21 09:38 Abnormal Lab Results - Last 24 Hours (Table) 06/06/21 06/06/21 Range/Units 09:38 09:38 Potassium 3.2 L (3.5-5.1) mmol/L Carbon Dioxide 31 H (22-30) mmol/L BUN 19 H (7-17) mg/dL Creatinine 1.11 H (0.52-1.04) mg/dL Glucose 150 H (74-99) mg/dL Magnesium 2.4 H (1.6-2.3) mg/dL Microbiology - Last 24 Hours (Table) 06/03/21 21:00 Blood Culture - Preliminary Blood No Growth after 48 hours 06/04/21 00:30 Urine Culture - Preliminary Urine,Voided Group D Enterococcus Diabetes panel 06/06/21 Range/Units 09:38 Sodium 138 (137-145) mmol/L Potassium 3.2 L (3.5-5.1) mmol/L Chloride 99 (98-107) mmol/L Carbon Dioxide 31 H (22-30) mmol/L BUN 19 H (7-17) mg/dL Creatinine 1.11 H (0.52-1.04) mg/dL Glucose 150 H (74-99) mg/dL Calcium 9.0 (8.4-10.2) mg/dL Calcium panel 06/06/21 Range/Units 09:38 Calcium 9.0 (8.4-10.2) mg/dL Pituitary panel 06/06/21 Range/Units 09:38 Sodium 138 (137-145) mmol/L Potassium 3.2 L (3.5-5.1) mmol/L Chloride 99 (98-107) mmol/L Carbon Dioxide 31 H (22-30) mmol/L BUN 19 H (7-17) mg/dL Creatinine 1.11 H (0.52-1.04) mg/dL Glucose 150 H (74-99) mg/dL Calcium 9.0 (8.4-10.2) mg/dL Adrenal panel 06/06/21 Range/Units 09:38 Sodium 138 (137-145) mmol/L Potassium 3.2 L (3.5-5.1) mmol/L Chloride 99 (98-107) mmol/L Carbon Dioxide 31 H (22-30) mmol/L BUN 19 H (7-17) mg/dL Creatinine 1.11 H (0.52-1.04) mg/dL Glucose 150 H (74-99) mg/dL Calcium 9.0 (8.4-10.2) mg/dL
--- NOTE | 2021-06-06 14:11 | CT ---
EXAMINATION TYPE: CT abdomen pelvis wo con DATE OF EXAM: 06/06/2021 COMPARISON: None HISTORY: Abdominal pain. CT DLP: 1077.2 mGycm Examination of the solid and hollow viscera is limited given the lack of contrast. FINDINGS: LUNG BASES: No evidence for nodule. No evidence for infiltrate. LIVER/GB: The gallbladder is surgically absent. No space-occupying hepatic lesion. PANCREAS: No pancreatic mass identified. No inflammatory process seen. SPLEEN: No evidence for splenomegaly. No intrasplenic lesions seen. ADRENALS: No adrenal nodules identified. No evidence for thickening. KIDNEYS: 1 cm hyperdense lesion lower pole right kidney may reflect hemorrhagic or mucinous containin g cyst. No nephrolithiasis. No hydronephrosis. BOWEL: There are multiple dilated loops of small bowel with air-fluid levels seen measuring up to 3.8 cm. Distal small bowel loops are decompressed. Partial or early complete small bowel obstruction is difficult to exclude. The appendix has a normal appearance. No evidence for free air or abscess. Lymph nodes: No evidence for adenopathy greater than 1 cm. Abdominal aorta: Atheromatous changes seen. No evidence for aneurysm. Genital organs: No significant abnormality. Other: No significant abnormality. IMPRESSION: 1.There are multiple dilated loops of small bowel with air-fluid levels seen measuring up to 3.8 cm. Distal small bowel loops are decompressed. Partial or early complete small bowel obstruction is diffi cult to exclude.
[2021-06-06] MEDS: HYDROmorphone 0.5 MG/0.5 ML SYRINGE IVP PRN ×3 (17:30→23:35)
[2021-06-06] MEDS: SERTRALINE 50 MG TAB PO SCH (20:08)
[2021-06-06] MEDS: MIRTAZAPINE 15 MG TAB PO SCH (20:08)
[2021-06-06] MEDS: ATORVASTATIN 20 MG TAB PO SCH (20:08)
--- NOTE | 2021-06-06 20:32 | XR ---
EXAMINATION TYPE: XR chest 1V DATE OF EXAM: 06/06/2021 COMPARISON: 06/03/2021 HISTORY: NG tube placement TECHNIQUE: Single frontal view of the chest is obtained. FINDINGS: NG tube seen coursing in the abdomen bilateral infiltrate and small effusion. No pneumotho rax. Atherosclerotic change aorta. Diffuse osteopenia with arthropathy of the shoulders. Heart enlarg ed. IMPRESSION: 1. NG tube seen coursing into the abdomen. 2. Bibasilar infiltrate and small effusion.
[2021-06-07] MEDS: AMPICILLIN-SULBACTAM 3 GM in SODIUM CHLORIDE 0.9% 100 ML IVPB SCH ×5 (01:44→23:22)
[2021-06-07] MEDS: SYMBICORT 160-4.5 MCG INHALER INHALATION SCH ×2 (05:34→19:25)
[2021-06-07] MEDS: IPRATROPIUM-ALBUTEROL 3 ML NEB INHALATION SCH ×4 (05:34→19:24)
[2021-06-07] MEDS: DEXTROSE 5%-0.9% NACL 1,000 ML IV SCH ×2 (05:36→11:33)
[2021-06-07] MEDS: LEVOTHYROXINE 125 MCG TAB PO SCH (05:37)
[2021-06-07] MEDS: HYDROmorphone 0.5 MG/0.5 ML SYRINGE IVP PRN (05:37)
[2021-06-07 08:50] LABS: HGB 13.5 gm/dL (11.4-16.0); MCH 30.5 pg (25.0-35.0); MCHC 32.1 g/dL (31.0-37.0); Mean Platelet Volume 7.4; Platelet Count 279 k/uL (150-450); RBC 4.43 m/uL (3.80-5.40); RDW 14.7 % (11.5-15.5); WBC 11.7 k/uL (3.8-10.6)
[2021-06-07] MEDS: carvediloL 12.5 MG TAB PO SCH (08:53)
[2021-06-07] MEDS ORDERED: cloNIDine 0.3 MG/24HR PATCH TRANSDERM SCH (09:00)
[2021-06-07] MEDS: HEPARIN SODIUM,PORCINE/PF 5,000 UNIT/0.5 ML SYRINGE SQ SCH ×2 (09:01→20:56)
[2021-06-07] MEDS: ONDANSETRON 4 MG/2 ML VIAL IVP PRN ×2 (09:01→16:02)
[2021-06-07] MEDS: FAMOTIDINE 20 MG/2 ML VIAL IV SCH (09:05)
[2021-06-07] MEDS: HYDROmorphone 1 MG/ML 1 ML SYRINGE IVP PRN ×3 (09:05→16:54)
[2021-06-07] MEDS: hydrALAZINE HCL 20 MG/ML 1 ML VIAL IVP SCH ×5 (09:05→23:22)
[2021-06-07 09:09] LABS: Calcium 9.4 mg/dL (8.4-10.2); Magnesium 2.4 mg/dL (1.6-2.3); Potassium 3.1 mmol/L (3.5-5.1)
[2021-06-07] MEDS: PROMETHAZINE 25 MG TAB PO PRN (10:09)
[2021-06-07] MEDS ORDERED: Potassium Replacement Protocol 1 EACH MISC MISCELLANE PRN (10:25)
[2021-06-07] MEDS: POTASSIUM CHLORIDE 10 MEQ in WATER FOR INJECTION 1 100ML.BAG IVPB SCH ×4 (11:25→15:57)
--- NOTE | 2021-06-07 12:41 | P.PN ---
Subjective This is a pleasant 81 years old female with past medical history of COPD AND CHRONIC HYPOXIC RESPIRATORY FAILURE ON 2.5 L OXYGEN , SHE FOLLOWS UP WITH DR. MURPHY. GERD, Hyperlipidemia, Hypertension, Osteoarthritis (OA), Pulmonary Embolus not on anticoagulation, Rheumatoid Arthritis (RA), Sleep Apnea/CPAP/BIPAP, hypothyroidism, history of basal cell carcinoma of the skin resected, history of melanoma of the skin involving the back, resected, Presents because of nausea, decreased appetite and generalized weakness. Patient states over the last week she was getting episodes of feeling hot with chills with lightheadedness, she does not want to eat but she drinks LIQUIDS. Also she reports worsening of her dyspnea and orthopnea over the last week with worsening cough than usual, she has chronic cough and clear phlegm. She denies any urinary tract symptoms, no dysuria or urgency or hesitancy. No suprapubic tenderness or discomfort. No new back pain. He is really she has constipation however she had 1-2 days episodes of diarrhea which is resolved now, over the last 2 days she did not have bowel movement. She denies any abdominal pain or vomiting. No alcohol, smoking or illicit drugs. Patient not on CPAP. Vitas looks stable, she is to keep liquids breathing rate 20-24, blood pressure 179/84 Labs show unremarkable CBC, INR, low potassium 2.5 came back to 3.3. No sodium 133 and 136. Height creatinine 1.65 came down to 1.36 Urinalysis is suspicious of infection. Coronal virus however is not detected. Troponin elevated 0.04 and 0.035. Her last one was normal 0.030. EKG shows sinus bradycardia at [address]-T changes and QTC 487. Chest x-ray: Cardiomegaly On admission patient received normal saline. Patient was started on aspirin Cardiology team were consulted 06/05/2021 Patient still with generalized weakness, no overt urinary symptoms. No chest pain or dyspnea., However patient feels some heartburn. She is hemodynamically stable, blood pressure elevated 183/79. Hydralazine 50 mg 3 times a day increased to 75 mg. Creatinine back to normal at 1.0, stop IV fluid, patient still might have el ements of chronic kidney disease. Oral Lasix and hold, continue with ceftriaxone, urine culture is negative however urine analysis was repeated a still abnormal. Cardiology recommended no further cardiac workup and elevated troponin related to renal disease. Continue with home oxygen of 30 L/m. Physical therapy: Pending 06/06/2021 Patient today developed severe abdominal periumbilical pain started last night with significant nausea, vomited once. No bowel movement over the last 2 days, no passing gas. Baseline bowel movement is every 2-3 days. Also her abdomen was distended and tender on examination. Abdominal x-ray showed dilated loops suspicious for bowel obstruction. Patient was placed nothing by mouth, IV fluid and pain medication. Surgery team consulted. Other than that she is doing well from cardiology and pulmonary perspective for discharge yesterday Urine culture came pulmonary results for enterococcus, antibiotics were adjusted to Unasyn for now. Start the patient on normal saline at 75 mL/h Monitor potassium and magnesium. Physical therapy pending 06/07/2021 Her abdominal pain got more severe yesterday evening and this morning, NG tube was started yesterday and she has 500 mL of color discharge most likely bile. Also started on Dilaudid 0.5 mg increased to 1 mg every 3 hours when necessary. She is afebrile. Blood pressure slightly elevated and change her blood pressure medication and to IV hydralazine when necessary and clonidine patch 0.3 mg instead of oral hydralazine 75 mg 3 times a day and clonidine 0.3 mg twice a day. We will keep monitor blood pressure closely. Creatinine is stable at 1.06. WBC is slightly elevated at 11.7. Chest x-ray showing NG tube is in place and she has bilateral infiltrates in both lung bases which looks similar to x-ray from 06/03/2021. She remains on Unasyn for urine culture final enterococcus which is sensitive to vancomycin and ampicillin. Also she kept on D5 normal saline at 75 mL/h Algology Teacher already cleared the patient. Keep monitoring labs and electrolytes. Surgery team on the case Objective - Vital Signs Vital signs: Vital Signs Temp 98.4 F 06/07/21 11:20 Pulse 92 06/07/21 11:20 Resp 22 06/07/21 11:20 BP 175/87 06/07/21 11:20 Pulse Ox 97 06/07/21 11:20 Intake & Output 06/06/21 06/07/21 06/07/21 18:59 06:59 18:59 Intake Total 100 0 Output Total 300 75 Balance 100 -300 -75 Intake: Intake, IV Titration 100 Amount Ampicillin-Sulbactam 3 gm 100 In Sodium Chloride 0.9% 100 ml @ 200 mls/hr IVPB Q6HR [facility] Rx#:[id number] Oral 0 0 Output: Gastric Drainage 200 75 Urine 100 Other: Voiding Method Bedside Commode # Voids 2 1 - Exam -GENERAL: The patient is alert and oriented x3, not in any acute distress. Well developed, well nourished. Mild general weakness HEENT: Pupils are round and equally reacting to light. EOMI. No scleral icterus. No conjunctival pallor. Normocephalic, atraumatic. No pharyngeal erythema. No thyromegaly. CARDIOVASCULAR: S1 and S2 present. No murmurs, rubs, or gallops. PULMONARY: Chest is clear to auscultation, no wheezing or crackles. -ABDOMEN: Soft, distended with periumbilical tenderness, normoactive bowel sounds. No palpable organomegaly. MUSCULOSKELETAL: No joint swelling or deformity. EXTREMITIES: No cyanosis, clubbing, or pedal edema. NEUROLOGICAL: Gross neurological examination did not reveal any focal deficits. SKIN: No rashes. no petechiae. - Labs CBC & Chem 7: 06/07/21 08:22 06/07/21 08:22 Labs: Abnormal Lab Results - Last 24 Hours (Table) 06/07/21 06/07/21 Range/Units 08:22 08:22 WBC 11.7 H (3.8-10.6) k/uL Potassium 3.1 L (3.5-5.1) mmol/L Creatinine 1.06 H (0.52-1.04) mg/dL Glucose 153 H (74-99) mg/dL Magnesium 2.4 H (1.6-2.3) mg/dL Microbiology - Last 24 Hours (Table) 06/03/21 21:00 Blood Culture - Preliminary Blood No Growth after 72 hours 06/04/21 00:30 Urine Culture - Final Urine,Voided Enterococcus faecalis Assessment and Plan Assessment: Acute bowel obstruction enterococcus urinary tract infection Acute COPD exacerbation, mild improved Elevated troponin, cardiac causes were ruled out hypokalemia Chronic hypoxic respiratory failure Acute kidney injury Hypertension Hyperlipidemia History of COPD/asthma, not acute exacerbation History of osteoarthritis History of PE, not on anticoagulation History of rheumatoid arthritis History of sleep apnea Hypothyroidism Plan: This is a pleasant 81 years old female who presents with a gait I an elevated troponin and UTI. Nothing by mouth, IV fluids and pain medication and surgical consult. Continue with Unasyn and follow-up final urine culture results. Continue gentle hydration Continue with Symbicort. Pulmonary team on the case Labs and medication were reviewed.. Continue same treatment. Continue with symptomatic treatment. Resume home medication. Monitor lytes and vitals. DVT and GI prophylaxis. Further recommendations depends on the clinical course of the patient DVT prophylaxis: Subcutaneous heparin GI Prophylaxis: Pepcid PT/OT: Pending Prognosis is guarded
--- NOTE | 2021-06-07 12:47 | P.PN ---
Subjective Progress Note Date: 06/07/21 CHIEF COMPLAINT: Small bowel obstruction HISTORY OF PRESENT ILLNESS: Surgical service is following regards to patient's small bowel obstruction. She had NG tube placed yesterday. Patient does report relief in her abdominal pain after NG tube placed. NG tube output is dark brown. Patient has had 275 mL output. She does report abdominal pain is controlled with medication. She has been having some nausea. No flatus or BM. Afebrile. WBC 11.7 hemoglobin 13.5 platelets 274 potassium is still low at 3.1 magnesium is 2.4 patient is on antibiotics for UTI CT abdomen and pelvis shows multiple dilated loops of small bowel with air-fluid level seen measuring up to 3.8 cm. Distal small bowel loops are decompressed. A partial or early complete small bowel obstruction is difficult to exclude. PHYSICAL EXAM: VITAL SIGNS: Reviewed. GENERAL: Well-developed in no acute distress. HEENT: No sclera icterus. Extraocular movements grossly intact. Moist buccal mucosa. Head is atraumatic, normocephalic. ABDOMEN: Soft. Distended upper abdominal tenderness with palpation NEUROLOGIC: Alert and oriented. Cranial nerves II through XII grossly intact. ASSESSMENT: 1. Abdominal pain with partial small bowel obstruction 2. Hypokalemia 3. History of multiple abdominal surgeries PLAN: -Continue NG tube for decompression -Continue supportive care -If no bowel function by Friday patient will require surgical intervention -Continue to replace potassium -Continue IV fluids Physician Ornamental Iron Erector note has been reviewed by physician. Signing provider agrees with the documented findings, assessment, and plan of care. Objective - Vital Signs Vital signs: Vital Signs Temp 98.4 F 06/07/21 11:20 Pulse 92 06/07/21 11:20 Resp 22 06/07/21 11:20 BP 175/87 06/07/21 11:20 Pulse Ox 97 06/07/21 11:20 Intake & Output 06/06/21 06/07/21 06/07/21 18:59 06:59 18:59 Intake Total 100 0 Output Total 300 75 Balance 100 -300 -75 Intake: Intake, IV Titration 100 Amount Ampicillin-Sulbactam 3 gm 100 In Sodium Chloride 0.9% 100 ml @ 200 mls/hr IVPB Q6HR [facility] Rx#:[id number] Oral 0 0 Output: Gastric Drainage 200 75 Urine 100 Other: Voiding Method Bedside Commode # Voids 2 1 - Labs CBC & Chem 7: 06/07/21 08:22 06/07/21 08:22 Labs: Abnormal Lab Results - Last 24 Hours (Table) 06/07/21 06/07/21 Range/Units 08:22 08:22 WBC 11.7 H (3.8-10.6) k/uL Potassium 3.1 L (3.5-5.1) mmol/L Creatinine 1.06 H (0.52-1.04) mg/dL Glucose 153 H (74-99) mg/dL Magnesium 2.4 H (1.6-2.3) mg/dL Microbiology - Last 24 Hours (Table) 06/03/21 21:00 Blood Culture - Preliminary Blood No Growth after 72 hours 06/04/21 00:30 Urine Culture - Final Urine,Voided Enterococcus faecalis
--- NOTE | 2021-06-07 13:26 | P.PN ---
Subjective Progress Note Date: 06/07/21 81-year-old female patient, presented to hospital because of feeling weak, nausea, dry heaves, oral dryness, increased cough. No significant chest pain or shortness of breath. No lightheadedness, dizziness, syncope, angina, palpitations, pleurisy or hemoptysis. Denied having any fever or chills. Emmanuel ed having any nausea vomiting or diarrhea or abdominal pain. She is known to have COPD, obstructive sleep apnea and hypertension and hyperlipidemia. The patient is also known to have mild nonobstructive CAD and based on recent cardiac catheterization from 2017, the patient ejection fraction of 60% with mild nonobstructive CAD involving the proximal LAD. Echo from October 2020 showed an ejection fraction of 50-55% and the patient also had a mild mitral regurgitation. She is also known to have rheumatoid arthritis and skin cancer that has been resected in the form of melanoma and basal cell carcinoma. In emergency, workup has been initiated and the patient had a CBC that was essentially unremarkable. The patient's blood work showed a sodium of 133 with a potassium of 2.5 at a time of admission with a creatinine of 1.65 and a BUN of 38. Troponins were 0.04, 0.03 and 0.03 respectively 3. ProBNP level was 313. TSH was normal. EKG was showing sinus bradycardia, no acute ischemic changes. COVID-19 testing was also negative. The patienthad a chest x-ray that was essentially within normal with some cardiomegaly. UA was abnormal. Evaluation on today's evaluation of 06/05/2021, the patient is feeling much better. Energy level is improved significantly and the patient is working with physical therapy. No more fever. The urine cultures still pending for now. The patient remains on IV Rocephin. No nausea. No vomiting. No diarrhea. No abdominal pain. No chest pain. No other significant events overnight. The electrolytes all within normal limits. Creatinine is normalized and is down to 1.09 with a BUN of 25. COVID-19 testing came back negative. No other sign ificant events overnight. On today's evaluation of 06/06/2021, the patient is being treated for an enterococcal UTI. Urine culture came back positive for enterococcus and the patient wasto Unasyn. Nevertheless, as of yesterday, the patient developed some periumbilical pain that was quite achy and crampy. She hasn't had a bowel movement for the past 2-3 days. Flat film of the abdomen was done and showed some dilated loops of bowel. Gen. surgery consultation was obtained and a CAT scan of the abdomen and pelvis is in progress. Otherwise, electrodes are normal, her potassium level is at 3.2 that needs to be replaced, creatinine is at 1.1. She is on Unasyn regarding her enterococcal UTI. No nausea. No vomiting. No fever. No chills. IV fluids are in the form of [id number] at the rate of 75mL an hour. The patient is also working with physical therapy. She is on oxygen at 3 L per minute nasal cannula. 06/07/2021, the patient is being seen for a follow-up. She was having abdominal pain. Stop the abdomen was done yesterday and it showed evidence of bowel obstruction involving the small bowel. NG tube was inserted and a total of 2 75 mL and output was obtained. Currently she is calm and comfortable. Her CAT scan of the abdomen showed multiple dilated loops of small bowel along with air- fluid levels with dilatation of the small bowel up to 3.8 cm in size. Distal small bowel loops were decompressed. Meanwhile, the patient is still being treated for a enterococcal UTI. Currently she is on Unasyn. No respiratory distress. No fever. No chills. Hemodynamically stable and she is currently untreated oxygen by nasal cannula with a pulse ox of 98%. IV fluids are in the form of D5 normal saline at the rate of 75 mL an hour. Her blood work is showing a white cell count of 11.7 with a hemoglobin of 13.5. Electrodes are normal and the potassium needs to be replaced at 3.1. The glucose at 153. BUN and creatinine are normal with a creatinine of 1.06. Objective - Vital Signs Vital signs: Vital Signs Temp 98.4 F 06/07/21 11:20 Pulse 92 06/07/21 11:20 Resp 22 06/07/21 11:20 BP 175/87 06/07/21 11:20 Pulse Ox 97 06/07/21 11:20 Intake & Output 06/06/21 06/07/21 06/07/21 18:59 06:59 18:59 Intake Total 100 0 Output Total 300 75 Balance 100 -300 -75 Intake: Intake, IV Titration 100 Amount Ampicillin-Sulbactam 3 gm 100 In Sodium Chloride 0.9% 100 ml @ 200 mls/hr IVPB Q6HR COUNT INCLUDES THE [facility] Rx#:[id number] Oral 0 0 Output: Gastric Drainage 200 75 Urine 100 Other: Voiding Method Bedside Commode # Voids 2 1 - Exam Gen. appearance the patient is calm and she is comfortable. breathing is nonlabored, NG tube is in place Head exam was generally normal. There was no scleral icterus or corneal arcus. Mucous membranes were moist. Neck was supple and without jugular venous distension, thyromegaly, or carotid bruits. Carotids were easily palpable bilaterally. There was no adenopathy. Lungs sounds are diminished bilaterally along with some prolongation of expiratory phase of breathing. There are expiratory wheezes bilaterally. . The abdomen was soft, non-tender, and without masses, organomegaly, or appreciable enlargement of the abdominal aorta. The patient has no significant bowel sounds on today's evaluation. The bowel sounds are extremely sluggish. Examination of the extremities revealed easily palpable radial, femoral and pedal pulses. There was no cyanosis, clubbing or edema. The patient has varicose veins bilaterally. Examination of the skin revealed no evidence of significant rashes, suspicious appearing nevi or other concerning lesions. Neurologically the patient is awake and alert and there is no focal neurological deficits. - Labs CBC & Chem 7: 06/07/21 08:22 06/07/21 08:22 Labs: Abnormal Lab Results - Last 24 Hours (Table) 06/07/21 06/07/21 Range/Units 08:22 08:22 WBC 11.7 H (3.8-10.6) k/uL Potassium 3.1 L (3.5-5.1) mmol/L Creatinine 1.06 H (0.52-1.04) mg/dL Glucose 153 H (74-99) mg/dL Magnesium 2.4 H (1.6-2.3) mg/dL Microbiology - Last 24 Hours (Table) 06/03/21 21:00 Blood Culture - Preliminary Blood No Growth after 72 hours 06/04/21 00:30 Urine Culture - Final Urine,Voided Enterococcus faecalis Assessment and Plan Plan: 1 generalized weakness, likely on the basis of an underlying UTI as the patient was found to have enterococcus group B in the urine and the patient was switched to Unasyn. Currently being investigated for an abdominal pain, periumbilical, given morphine for pain control, currently free of any abdominal pain and the patient will have a CAT scan of the abdomen and pelvis today with by mouth contrast., NG tube is in place. Further investigation revealed that the patient had a small bowel obstruction and an NG tube in place. She was having increased nausea and abdominal pain and emesis. NG tube was inserted accordingly. She is currently nothing by mouth and the bowels were placed to rest 2 COPD currently inactive in stable and the patient has chronic dyspnea has been vaccinated for COVID-19 3 coronary artery disease with nonocclusive disease based on a cardiac catheterization from 2018 with mild disease involving the LAD, preserved LV function 4 rheumatoid arthritis 5 obstructive sleep apnea nontolerant to CPAP therapy 6 history of skin cancer in the form of squamous cell carcinoma and basal cell carcinoma and melanoma, all resected 8 history of diverticular disease 9 acid reflux 10 remote history of pulmonary embolism, in a postoperative setting 11 hypertension 12 hypothyroidism 13 Chronic back pain has been on [place] 7.5 and she'll be given 1 tablet every 24 hours on an as-needed basis for ongoing pain. 14 acute kidney injury, recovering, creatinine is back to normal 15 abdominal pain secondary to small bowel obstruction. NG tube is in place. Further investigation revealed that the patient had a small bowel obstruction and an NG tube in place. She was having increased nausea and abdominal pain and emesis. NG tube was inserted accordingly. She is currently nothing by mouth and the bowels were placed to rest no Plan Continue Unasyn CAT scan of the abdomen and pelvis with oral contrast was completed and was consistent with small bowel obstruction. The patient currently has an NG tube in place. She is currently nothing by mouth. Urine cultures were noted and the patient has enterococcal UTI currently on IV Unasyn Working with physical therapy General surgery consultation Replace potassium We'll continue to follow
[2021-06-07] MEDS: D5-0.9% NACL WITH KCL 40 MEQ/L 1,000 ML IV SCH (15:00)
[2021-06-07] MEDS ORDERED: LORazepam 2 MG/ML INJ IV STA (16:49)
--- NOTE | 2021-06-07 17:57 | XR ---
EXAMINATION TYPE: XR chest 1V DATE OF EXAM: 06/07/2021 COMPARISON: Chest x-ray 06/06/2021 HISTORY: Dyspnea TECHNIQUE: Single frontal view of the chest is obtained. FINDINGS: NG tube is present, coiled within the stomach. The aorta is dense, patient is rotated There is no focal air space opacity, pleural effusion, or pneumothorax seen. The cardiac silhouette size is stable and enlarged. Lung volumes are improved compared to prior exam. There are overlying artif acts. Patient is rotated. The osseous structures are intact. IMPRESSION: Improvement in lung volume. Stable cardiomegaly.
[2021-06-07 18:22] LABS: Magnesium 2.4 mg/dL (1.6-2.3); Potassium 3.7 mmol/L (3.5-5.1)
[2021-06-07] MEDS: MIRTAZAPINE 15 MG TAB PO SCH (20:47)
[2021-06-07] MEDS: SERTRALINE 50 MG TAB PO SCH (20:47)
[2021-06-07] MEDS: LORazepam 2 MG/ML INJ IV PRN (21:06)
[2021-06-08] MEDS: hydrALAZINE HCL 20 MG/ML 1 ML VIAL IVP SCH ×6 (04:15→23:55)
[2021-06-08] MEDS: D5-0.9% NACL WITH KCL 40 MEQ/L 1,000 ML IV SCH (04:18)
[2021-06-08] MEDS: AMPICILLIN-SULBACTAM 3 GM in SODIUM CHLORIDE 0.9% 100 ML IVPB SCH ×4 (06:43→23:55)
[2021-06-08 07:35] LABS: Basophils % (A) 0 %; Eosinophils # (A) 0.1 k/uL (0-0.7); Eosinophils % (A) 1 %; HCT 38.8 % (34.0-46.0); HGB 12.5 gm/dL (11.4-16.0); Lymphocytes # (A) 1.4 k/uL (1.0-4.8); Lymphocytes % (A) 15 %; MCH 31.1 pg (25.0-35.0); MCHC 32.3 g/dL (31.0-37.0); MCV 96.2 fL (80.0-100.0); Mean Platelet Volume 7.7; Monocytes # (A) 0.5 k/uL (0-1.0); Monocytes % (A) 5 %; Neutrophils # (A) 7.1 k/uL (1.3-7.7); Neutrophils % (A) 77 %; Platelet Count 285 k/uL (150-450); RBC 4.03 m/uL (3.80-5.40); WBC 9.3 k/uL (3.8-10.6)
[2021-06-08 07:57] LABS: Calcium 9.1 mg/dL (8.4-10.2); Magnesium 2.4 mg/dL (1.6-2.3); Potassium 3.8 mmol/L (3.5-5.1)
[2021-06-08] MEDS: SYMBICORT 160-4.5 MCG INHALER INHALATION SCH ×2 (08:02→20:35)
[2021-06-08] MEDS: IPRATROPIUM-ALBUTEROL 3 ML NEB INHALATION SCH ×4 (08:02→20:35)
[2021-06-08] MEDS: LORazepam 2 MG/ML INJ IV PRN (08:47)
[2021-06-08] MEDS: POTASSIUM CHLORIDE 10 MEQ in WATER FOR INJECTION 1 100ML.BAG IVPB SCH ×2 (08:48→11:17)
[2021-06-08] MEDS: HEPARIN SODIUM,PORCINE/PF 5,000 UNIT/0.5 ML SYRINGE SQ SCH ×2 (08:48→21:23)
[2021-06-08] MEDS: FAMOTIDINE 20 MG/2 ML VIAL IV SCH (08:48)
[2021-06-08] MEDS: HYDROmorphone 1 MG/ML 1 ML SYRINGE IVP PRN (08:55)
[2021-06-08] MEDS: DEXTROSE 5%-0.9% NACL 1,000 ML IV SCH ×2 (09:19→21:25)
--- NOTE | 2021-06-08 11:25 | P.PN ---
Subjective Progress Note Date: 06/08/21 81-year-old female patient, presented to hospital because of feeling weak, nausea, dry heaves, oral dryness, increased cough. No significant chest pain or shortness of breath. No lightheadedness, dizziness, syncope, angina, palpitations, pleurisy or hemoptysis. Denied having any fever or chills. Denied having any nausea vomiting or diarrhea or abdominal pain. She is known to have COPD, obstructive sleep apnea and hypertension and hyperlipidemia. The patient is also known to have mild nonobstructive CAD and based on recent cardiac catheterization from 2017, the patient ejection fraction of 60% with mild nonobstructive CAD involving the proximal LAD. Echo from October 2020 showed an ejection fraction of 50-55% and the patient also had a mild mitral regurgitation. She is also known to have rheumatoid arthritis and skin cancer that has been resected in the form of melanoma and basal cell carcinoma. In emergency, workup has been initiated and the patient had a CBC that was essentially unremarkable. The patient's blood work showed a sodium of 133 with a potassium of 2.5 at a time of admission with a creatinine of 1.65 and a BUN of 38. Troponins were 0.04, 0.03 and 0.03 respectively 3. ProBNP level was 313. TSH was normal. EKG was showing sinus bradycardia, no acute ischemic changes. COVID-19 testing was also negative. The patienthad a chest x-ray that was essentially within normal with some cardiomegaly. UA was abnormal. Evaluation on today's evaluation of 06/05/2021, the patient is feeling much better. Energy level is improved significantly and the patient is working with physical therapy. No more fever. The urine cultures still pending for now. The patient remains on IV Rocephin. No nausea. No vomiting. No diarrhea. No abdominal pain. No chest pain. No other significant events overnight. The electrolytes all within normal limits. Creatinine is normalized and is down to 1.09 with a BUN of 25. COVID-19 testing came back negative. No other signif icant events overnight. On today's evaluation of 06/06/2021, the patient is being treated for an en terococcal UTI. Urine culture came back positive for enterococcus and the patient wasto Unasyn. Nevertheless, as of yesterday, the patient developed some periumbilical pain that was quite achy and crampy. She hasn't had a bowel movement for the past 2-3 days. Flat film of the abdomen was done and showed some dilated loops of bowel. Gen. surgery consultation was obtained and a CAT scan of the abdomen and pelvis is in progress. Otherwise, electrodes are normal, her potassium level is at 3.2 that needs to be replaced, creatinine is at 1.1. She is on Unasyn regarding her enterococcal UTI. No nausea. No vomiting. No fever. No chills. IV fluids are in the form of [id number] at the rate of 75mL an hour. The patient is also working with physical therapy. She is on oxygen at 3 L per minute nasal cannula. 06/07/2021, the patient is being seen for a follow-up. She was having abdominal pain. Stop the abdomen was done yesterday and it showed evidence of bowel obstruction involving the small bowel. NG tube was inserted and a total of 2 75 mL and output was obtained. Currently she is calm and comfortable. Her CAT scan of the abdomen showed multiple dilated loops of small bowel along with air- fluid levels with dilatation of the small bowel up to 3.8 cm in size. Distal small bowel loops were decompressed. Meanwhile, the patient is still being treated for a enterococcal UTI. Currently she is on Unasyn. No respiratory distress. No fever. No chills. Hemodynamically stable and she is currently untreated oxygen by nasal cannula with a pulse ox of 98%. IV fluids are in the form of D5 normal saline at the rate of 75 mL an hour. Her blood work is showing a white cell count of 11.7 with a hemoglobin of 13.5. Electrodes are normal and the potassium needs to be replaced at 3.1. The glucose at 153. BUN and creatinine are normal with a creatinine of 1.06. On 06/08/2021 patient is seen in follow-up on 3 [address] monitored bed, she said she had a rough night, but denies any worsening dyspnea, lung sounds are positive for some rare scattered rhonchi, no significant wheezing, she remains on 3 L of oxygen pulse ox of 96%, she has had a low-grade fevers overnight, abdomen is nontender, NG tube remains in place, and patient is now starting to passing flatus. Patient had a total of 925 ML of gastric output in the last 24 hours, general surgery is following closely. Patient states she usually takes milk of magnesia, and stool softeners. Today's labs have been reviewed, CBC is all within normal limits, white blood cell count is 9.3, hemoglobin is 12.5, platelet count is 285, electrolytes are within normal limits, BUN 17 creatinine 1.08. Urine culture was positive for enterococcus faecalis, blood culture was negative, patient is currently on Unasyn. He is on Symbicort and DuoNeb nebulized treatments. Breathing is stable. Objective - Vital Signs Vital signs: Vital Signs Temp 99.9 F H 06/08/21 07:30 Pulse 108 H 06/08/21 11:12 Resp 18 06/08/21 07:30 BP 128/81 06/08/21 07:30 Pulse Ox 96 06/08/21 07:30 Intake & Output 06/07/21 06/08/21 06/08/21 18:59 06:59 18:59 Intake Total 1510 200 10 Output Total 475 450 Balance 1035 -250 10 Intake: IV 1510 200 10 Ampicillin-Sulbactam 3 gm 200 In Sodium Chloride 0.9% 100 ml @ 200 mls/hr IVPB Q6HR [facility] Rx#:[id number] D5-0.9% NaCl with KCl 40 75 Meq/l 1,000 ml @ 75 mls/ hr IV .[id number] [facility] Rx#: [id number] Dextrose 5%-0.9% NaCl 1, 825 200 000 ml @ 75 mls/hr IV . [id number] [facility] Rx#:[id number] Invasive Line 3 10 Invasive Line 4 10 Potassium Chloride 10 meq 400 In Water For Injection 1 100ml.bag @ 100 mls/hr IVPB Q1HR [facility] Rx#: [id number] Oral 0 0 Output: Gastric Drainage 475 450 Other: Voiding Method Bedside Commode Bedside Commode Bedside Commode # Voids 1 - Exam GENERAL EXAM: Alert, very pleasant, 81-year-old white female, on 3 L of oxygen pulse ox 96%, comfortable in no apparent distress. HEAD: Normocephalic/atraumatic. EYES: Normal reaction of pupils, equal size. Conjunctiva pink, sclera white. NOSE: Clear with pink turbinates. NG tube is present, to low intermittent suction, with a total of 925 mL of gastric output, NG tube was inserted for possible bowel obstruction THROAT: No erythema or exudates. NECK: No masses, no JVD, no thyroid enlargement, no adenopathy. CHEST: No chest wall deformity. Symmetrical expansion. LUNGS: Equal air entry with a few scattered rhonchi CVS: Regular rate and rhythm, normal S1 and S2, no gallops, no murmurs, no rubs ABDOMEN: Soft, nontender. No hepatosplenomegaly, normal bowel sounds, no guarding or rigidity. EXTREMITIES: No clubbing, mild bilateral lower extremity edema, no cyanosis, 2+ pulses and upper and lower extremities. MUSCULOSKELETAL: Muscle strength and tone normal. SPINE: No scoliosis or deformity SKIN: No rashes CENTRAL NERVOUS SYSTEM: Alert and oriented -3. No focal deficits, tone is normal in all 4 extremities. PSYCHIATRIC: Alert and oriented -3. Appropriate affect. Intact judgment and insight. - Labs CBC & Chem 7: 06/08/21 06:45 06/08/21 06:48 Labs: Abnormal Lab Results - Last 24 Hours (Table) 06/07/21 06/08/21 Range/Units 18:00 06:48 Creatinine 1.08 H (0.52-1.04) mg/dL Glucose 138 H (74-99) mg/dL Magnesium 2.4 H 2.4 H (1.6-2.3) mg/dL Microbiology - Last 24 Hours (Table) 06/03/21 21:00 Blood Culture - Preliminary Blood No Growth after 96 hours Assessment and Plan Plan: Assessment: #1. Generalized weakness, likely on the basis of an underlying UTI as the patient was found to have enterococcus group B in the urine and the patient was switched to Unasyn. Currently being investigated for an abdominal pain, periumbilical, given morphine for pain control, currently free of any abdominal pain and the patient will have a CAT scan of the abdomen and pelvis today with by mouth contrast., NG tube is in place. Further investigation revealed that the patient had a small bowel obstruction and an NG tube in place. She was having increased nausea and abdominal pain and emesis. NG tube was inserted accordingly. She is currently nothing by mouth and the bowels were placed to rest #2. COPD currently inactive in stable and the patient has chronic dyspnea has been vaccinated for COVID-19 #3. Coronary artery disease with nonocclusive disease based on a cardiac catheterization from 2018 with mild disease involving the LAD, preserved LV function #4. Rheumatoid arthritis #5. Obstructive sleep apnea nontolerant to CPAP therapy #6. History of skin cancer in the form of squamous cell carcinoma and basal cell carcinoma and melanoma, all resected #7. History of diverticular disease #8. Acid reflux #10. Remote history of pulmonary embolism, in a postoperative setting #11. Hypertension #12. Hypothyroidism #13. Chronic back pain has been on [place] 7.5 and she'll be given 1 tablet every 24 hours on an as-needed basis for ongoing pain. #14. Acute kidney injury, recovering, creatinine is back to normal #15. Abdominal pain secondary to small bowel obstruction. NG tube is in place. Further investigation revealed that the patient had a small bowel obstruction and an NG tube in place. She was having increased nausea and abdominal pain and emesis. NG tube was inserted accordingly. She is currently nothing by mouth and the bowels were placed to rest no Plan Continue current medical treatment From pulmonary perspective she remains stable, no worsening dyspnea, Continue Symbicort, nebulized bronchodilators Provide incentive spirometer instructed on the use Continue with Unasyn for Enterococcus faecalis urinary tract infection Gen. surgery is following, patient is starting to pass gas, NG tube remains in place for small bowel obstruction Hemodynamically she is stable, We'll continue to follow I performed a history & physical examination of the patient and discussed their management with my nurse practitioner, Meghan Naidu. I reviewed the nurse practitioner's note and agree with the documented findings and plan of care. Lung sounds are positive for diminished breath sounds throughout the lung khalil. The findings and the impression was discussed with the patient. I attest to the documentation by the nurse practitioner. Time with Patient: Less than 30
[2021-06-08] MEDS: LACTULOSE 20 GM/30 ML CUP PO SCH ×2 (12:11→21:24)
[2021-06-08] MEDS: SERTRALINE 50 MG TAB PO SCH (12:12)
--- NOTE | 2021-06-08 12:14 | P.PN ---
Subjective This is a pleasant 81 years old female with past medical history of COPD AND CHRONIC HYPOXIC RESPIRATORY FAILURE ON 2.5 L OXYGEN , SHE FOLLOWS UP WITH DR. MURPHY. GERD, Hyperlipidemia, Hypertension, Osteoarthritis (OA), Pulmonary Embolus not on anticoagulation, Rheumatoid Arthritis (RA), Sleep Apnea/CPAP/BIPAP, hypothyroidism, history of basal cell carcinoma of the skin resected, history of melanoma of the skin involving the back, resected, Presents because of nausea, decreased appetite and generalized weakness. Patient states over the last week she was getting episodes of feeling hot with chills with lightheadedness, she does not want to eat but she drinks LIQUIDS. Also she reports worsening of her dyspnea and orthopnea over the last week with worsening cough than usual, she has chronic cough and clear phlegm. She denies any urinary tract symptoms, no dysuria or urgency or hesitancy. No suprapubic tenderness or discomfort. No new back pain. He is really she has constipation however she had 1-2 days episodes of diarrhea which is resolved now, over the last 2 days she did not have bowel movement. She denies any abdominal pain or vomiting. No alcohol, smoking or illicit drugs. Patient not on CPAP. Vitas looks stable, she is to keep liquids breathing rate 20-24, blood pressure 179/84 Labs show unremarkable CBC, INR, low potassium 2.5 came back to 3.3. No sodium 133 and 136. Height creatinine 1.65 came down to 1.36 Urinalysis is suspicious of infection. Coronal virus however is not detected. Troponin elevated 0.04 and 0.035. Her last one was normal 0.030. EKG shows sinus bradycardia at [address]-T changes and QTC 487. Chest x-ray: Cardiomegaly On admission patient received normal saline. Patient was started on aspirin Cardiology team were consulted 06/05/2021 Patient still with generalized weakness, no overt urinary symptoms. No chest pain or dyspnea., However patient feels some heartburn. She is hemodynamically stable, blood pressure elevated 183/79. Hydralazine 50 mg 3 times a day increased to 75 mg. Creatinine back to normal at 1.0, stop IV fluid, patient still might have el ements of chronic kidney disease. Oral Lasix and hold, continue with ceftriaxone, urine culture is negative however urine analysis was repeated a still abnormal. Cardiology recommended no further cardiac workup and elevated troponin related to renal disease. Continue with home oxygen of 30 L/m. Physical therapy: Pending 06/06/2021 Patient today developed severe abdominal periumbilical pain started last night with significant nausea, vomited once. No bowel movement over the last 2 days, no passing gas. Baseline bowel movement is every 2-3 days. Also her abdomen was distended and tender on examination. Abdominal x-ray showed dilated loops suspicious for bowel obstruction. Patient was placed nothing by mouth, IV fluid and pain medication. Surgery team consulted. Other than that she is doing well from cardiology and pulmonary perspective for discharge yesterday Urine culture came pulmonary results for enterococcus, antibiotics were adjusted to Unasyn for now. Start the patient on normal saline at 75 mL/h Monitor potassium and magnesium. Physical therapy pending 06/07/2021 Her abdominal pain got more severe yesterday evening and this morning, NG tube was started yesterday and she has 500 mL of color discharge most likely bile. Also started on Dilaudid 0.5 mg increased to 1 mg every 3 hours when necessary. She is afebrile. Blood pressure slightly elevated and change her blood pressure medication and to IV hydralazine when necessary and clonidine patch 0.3 mg instead of oral hydralazine 75 mg 3 times a day and clonidine 0.3 mg twice a day. We will keep monitor blood pressure closely. Creatinine is stable at 1.06. WBC is slightly elevated at 11.7. Chest x-ray showing NG tube is in place and she has bilateral infiltrates in both lung bases which looks similar to x-ray from 06/03/2021. She remains on Unasyn for urine culture final enterococcus which is sensitive to vancomycin and ampicillin. Also she kept on D5 normal saline at 75 mL/h Director Of Technology already cleared the patient. Keep monitoring labs and electrolytes. Surgery team on the case 06/08/2021 Patient has this discharge from her NG tube around 200 mL this morning. Her abdominal pain and distention almost improved completely. However she still have discharge from NG tube. Surgery team start her on lactulose today. Patient is passing a lot of gas is but no bowel movement yet. Patient remains nothing by mouth currently. She is hemodynamically stable but developing low-grade fever 99.9. Blood pressure is wished to IV hydralazine and clonidine patch. Creatinine is stable at 1.08 and WBC is back to normal today. She remains on Unasyn and D5 normal saline at 75. Keep monitoring labs Objective - Vital Signs Vital signs: Vital Signs Temp 99.7 F H 06/08/21 11:19 Pulse 87 06/08/21 11:19 Resp 18 06/08/21 11:19 BP 176/92 06/08/21 11:19 Pulse Ox 97 06/08/21 11:19 Intake & Output 06/07/21 06/08/21 06/08/21 18:59 06:59 18:59 Intake Total 1510 200 910 Output Total 475 450 250 Balance 1035 -250 660 Weight 106.5 kg Intake: IV 1510 200 910 Ampicillin-Sulbactam 3 gm 200 100 In Sodium Chloride 0.9% 100 ml @ 200 mls/hr IVPB Q6HR [facility] Rx#:[id number] D5-0.9% NaCl with KCl 40 75 Meq/l 1,000 ml @ 75 mls/ hr IV .[id number] [facility] Rx#: [id number] Dextrose 5%-0.9% NaCl 1, 825 200 600 000 ml @ 75 mls/hr IV . [id number] [facility] Rx#:[id number] Invasive Line 3 10 Invasive Line 4 10 Potassium Chloride 10 meq 400 200 In Water For Injection 1 100ml.bag @ 100 mls/hr IVPB Q1HR [facility] Rx#: [id number] Oral 0 0 Output: Gastric Drainage 475 450 250 Other: Voiding Method Bedside Commode Bedside Commode Bedside Commode # Voids 1 - Exam -GENERAL: The patient is alert and oriented x3, not in any acute distress. Well developed, well nourished. Mild general weakness HEENT: Pupils are round and equally reacting to light. EOMI. No scleral icterus. No conjunctival pallor. Normocephalic, atraumatic. No pharyngeal erythema. No thyromegaly. CARDIOVASCULAR: S1 and S2 present. No murmurs, rubs, or gallops. PULMONARY: Chest is clear to auscultation, no wheezing or crackles. -ABDOMEN: Soft, distended with periumbilical tenderness, normoactive bowel sounds. No palpable organomegaly. MUSCULOSKELETAL: No joint swelling or deformity. EXTREMITIES: No cyanosis, clubbing, or pedal edema. NEUROLOGICAL: Gross neurological examination did not reveal any focal deficits. SKIN: No rashes. no petechiae. - Labs CBC & Chem 7: 06/08/21 06:45 06/08/21 06:48 Labs: Abnormal Lab Results - Last 24 Hours (Table) 06/07/21 06/08/21 Range/Units 18:00 06:48 Creatinine 1.08 H (0.52-1.04) mg/dL Glucose 138 H (74-99) mg/dL Magnesium 2.4 H 2.4 H (1.6-2.3) mg/dL Microbiology - Last 24 Hours (Table) 06/03/21 21:00 Blood Culture - Preliminary Blood No Growth after 96 hours Assessment and Plan Assessment: Acute bowel obstruction enterococcus urinary tract infection Acute COPD exacerbation, mild improved Elevated troponin, cardiac causes were ruled out hypokalemia Chronic hypoxic respiratory failure Acute kidney injury Hypertension Hyperlipidemia History of COPD/asthma, not acute exacerbation History of osteoarthritis History of PE, not on anticoagulation History of rheumatoid arthritis History of sleep apnea Hypothyroidism Plan: This is a pleasant 81 years old female who presents with a gait I an elevated t roponin and UTI. Nothing by mouth, IV fluids and pain medication and surgical consult. Continue with Unasyn and follow-up final urine culture results. Continue gentle hydration Continue with Symbicort. Pulmonary team on the case Labs and medication were reviewed.. Continue same treatment. Continue with symptomatic treatment. Resume home medication. Monitor lytes and vitals. DVT and GI prophylaxis. Further recommendations depends on the clinical course of the patient DVT prophylaxis: Subcutaneous heparin GI Prophylaxis: Pepcid PT/OT: Pending Prognosis is guarded
--- NOTE | 2021-06-08 12:37 | P.PN ---
Subjective Progress Note Date: 06/08/21 CHIEF COMPLAINT: Small bowel obstruction HISTORY OF PRESENT ILLNESS: Surgical service is following regards to patient's small bowel obstruction. Patient currently has NG tube in place. She had 450 ML output through the night. She reports a decrease in her pain and nausea. She has having a large amount of flatus. Afebrile WBC has normalized at 9.3. Hypokalemia resolved potassium 3.8 CT abdomen and pelvis shows multiple dilated loops of small bowel with air-fluid level seen measuring up to 3.8 cm. Distal small bowel loops are decompressed. A partial or early complete small bowel obstruction is difficult to exclude. Patient seen and examined with Dr. fabian PHYSICAL EXAM: VITAL SIGNS: Reviewed. GENERAL: Well-developed in no acute distress. HEENT: No sclera icterus. Extraocular movements grossly intact. Moist buccal mucosa. Head is atraumatic, normocephalic. ABDOMEN: Soft. Abdomen less distended. Minimal pain with palpation of upper abdomen. NEUROLOGIC: Alert and oriented. Cranial nerves II through XII grossly intact. ASSESSMENT: 1. Small bowel obstruction 2. Hypokalemia improved 3. History of multiple abdominal surgeries PLAN: -discontinue NG tube -Start clear liquids -Lactulose twice a day -Continue supportive care -Continue IV fluids Physician Spray Rig Operator note has been reviewed by physician. Signing provider agrees with the documented findings, assessment, and plan of care. Objective - Vital Signs Vital signs: Vital Signs Temp 99.9 F H 06/08/21 07:30 Pulse 97 06/08/21 07:30 Resp 18 06/08/21 07:30 BP 128/81 06/08/21 07:30 Pulse Ox 96 06/08/21 07:30 Intake & Output 06/07/21 06/08/21 06/08/21 18:59 06:59 18:59 Intake Total 1510 200 10 Output Total 475 450 Balance 1035 -250 10 Intake: IV 1510 200 10 Ampicillin-Sulbactam 3 gm 200 In Sodium Chloride 0.9% 100 ml @ 200 mls/hr IVPB Q6HR [facility] Rx#:[id number] D5-0.9% NaCl with KCl 40 75 Meq/l 1,000 ml @ 75 mls/ hr IV .[id number] [facility] Rx#: [id number] Dextrose 5%-0.9% NaCl 1, 825 200 000 ml @ 75 mls/hr IV . [id number] [facility] Rx#:[id number] Invasive Line 3 10 Invasive Line 4 10 Potassium Chloride 10 meq 400 In Water For Injection 1 100ml.bag @ 100 mls/hr IVPB Q1HR [facility] Rx#: [id number] Oral 0 0 Output: Gastric Drainage 475 450 Other: Voiding Method Bedside Commode Bedside Commode Bedside Commode # Voids 1 - Labs CBC & Chem 7: 06/08/21 06:45 06/08/21 06:48 Labs: Abnormal Lab Results - Last 24 Hours (Table) 06/07/21 06/08/21 Range/Units 18:00 06:48 Creatinine 1.08 H (0.52-1.04) mg/dL Glucose 138 H (74-99) mg/dL Magnesium 2.4 H 2.4 H (1.6-2.3) mg/dL Microbiology - Last 24 Hours (Table) 06/03/21 21:00 Blood Culture - Preliminary Blood No Growth after 96 hours
[2021-06-08] MEDS: POTASSIUM CHLORIDE ER 20 MEQ TAB.ER PO SCH (17:07)
[2021-06-08] MEDS: MIRTAZAPINE 15 MG TAB PO SCH (21:24)
[2021-06-09] MEDS: hydrALAZINE HCL 20 MG/ML 1 ML VIAL IVP SCH ×6 (03:50→23:33)
[2021-06-09] MEDS: AMPICILLIN-SULBACTAM 3 GM in SODIUM CHLORIDE 0.9% 100 ML IVPB SCH (06:33)
[2021-06-09] MEDS: LEVOTHYROXINE 125 MCG TAB PO SCH (06:33)
[2021-06-09] MEDS: carvediloL 12.5 MG TAB PO SCH ×2 (06:33→17:24)
[2021-06-09] MEDS: SYMBICORT 160-4.5 MCG INHALER INHALATION SCH ×2 (07:45→19:54)
[2021-06-09] MEDS: IPRATROPIUM-ALBUTEROL 3 ML NEB INHALATION SCH ×4 (07:45→19:54)
[2021-06-09] MEDS: FAMOTIDINE 20 MG TAB PO SCH (08:24)
[2021-06-09] MEDS: HEPARIN SODIUM,PORCINE/PF 5,000 UNIT/0.5 ML SYRINGE SQ SCH ×2 (08:24→20:50)
[2021-06-09] MEDS: ATORVASTATIN 20 MG TAB PO SCH (08:24)
[2021-06-09] MEDS: LACTULOSE 20 GM/30 ML CUP PO SCH ×2 (08:24→20:51)
[2021-06-09] MEDS: cloNIDine HCL 0.2 MG TAB PO SCH ×2 (08:24→20:51)
[2021-06-09 08:30] LABS: Calcium 9.2 mg/dL (8.4-10.2); Magnesium 2.3 mg/dL (1.6-2.3); Potassium 3.5 mmol/L (3.5-5.1)
--- NOTE | 2021-06-09 10:03 | P.PN ---
Subjective Progress Note Date: 06/09/21 81-year-old female patient, presented to hospital because of feeling weak, nausea, dry heaves, oral dryness, increased cough. No significant chest pain or shortness of breath. No lightheadedness, dizziness, syncope, angina, palpitations, pleurisy or hemoptysis. Denied having any fever or chills. Emmanuel ed having any nausea vomiting or diarrhea or abdominal pain. She is known to have COPD, obstructive sleep apnea and hypertension and hyperlipidemia. The patient is also known to have mild nonobstructive CAD and based on recent cardiac catheterization from 2017, the patient ejection fraction of 60% with mild nonobstructive CAD involving the proximal LAD. Echo from October 2020 showed an ejection fraction of 50-55% and the patient also had a mild mitral regurgitation. She is also known to have rheumatoid arthritis and skin cancer that has been resected in the form of melanoma and basal cell carcinoma. In emergency, workup has been initiated and the patient had a CBC that was essentially unremarkable. The patient's blood work showed a sodium of 133 with a potassium of 2.5 at a time of admission with a creatinine of 1.65 and a BUN of 38. Troponins were 0.04, 0.03 and 0.03 respectively 3. ProBNP level was 313. TSH was normal. EKG was showing sinus bradycardia, no acute ischemic changes. COVID-19 testing was also negative. The patienthad a chest x-ray that was essentially within normal with some cardiomegaly. UA was abnormal. Evaluation on today's evaluation of 06/05/2021, the patient is feeling much better. Energy level is improved significantly and the patient is working with physical therapy. No more fever. The urine cultures still pending for now. The patient remains on IV Rocephin. No nausea. No vomiting. No diarrhea. No abdominal pain. No chest pain. No other significant events overnight. The electrolytes all within normal limits. Creatinine is normalized and is down to 1.09 with a BUN of 25. COVID-19 testing came back negative. No other sign ificant events overnight. On today's evaluation of 06/06/2021, the patient is being treated for an enterococcal UTI. Urine culture came back positive for enterococcus and the patient wasto Unasyn. Nevertheless, as of yesterday, the patient developed some periumbilical pain that was quite achy and crampy. She hasn't had a bowel movement for the past 2-3 days. Flat film of the abdomen was done and showed some dilated loops of bowel. Gen. surgery consultation was obtained and a CAT scan of the abdomen and pelvis is in progress. Otherwise, electrodes are normal, her potassium level is at 3.2 that needs to be replaced, creatinine is at 1.1. She is on Unasyn regarding her enterococcal UTI. No nausea. No vomiting. No fever. No chills. IV fluids are in the form of A4tigrct at the rate of 75mL an hour. The patient is also working with physical therapy. She is on oxygen at 3 L per minute nasal cannula. 06/07/2021, the patient is being seen for a follow-up. She was having abdominal pain. Stop the abdomen was done yesterday and it showed evidence of bowel obstruction involving the small bowel. NG tube was inserted and a total of 2 75 mL and output was obtained. Currently she is calm and comfortable. Her CAT scan of the abdomen showed multiple dilated loops of small bowel along with air- fluid levels with dilatation of the small bowel up to 3.8 cm in size. Distal small bowel loops were decompressed. Meanwhile, the patient is still being treated for a enterococcal UTI. Currently she is on Unasyn. No respiratory distress. No fever. No chills. Hemodynamically stable and she is currently untreated oxygen by nasal cannula with a pulse ox of 98%. IV fluids are in the form of D5 normal saline at the rate of 75 mL an hour. Her blood work is showing a white cell count of 11.7 with a hemoglobin of 13.5. Electrodes are normal and the potassium needs to be replaced at 3.1. The glucose at 153. BUN and creatinine are normal with a creatinine of 1.06. On 06/08/2021 patient is seen in follow-up on 3 south monitored bed, she said she had a rough night, but denies any worsening dyspnea, lung sounds are positive for some rare scattered rhonchi, no significant wheezing, she remains on 3 L of oxygen pulse ox of 96%, she has had a low-grade fevers overnight, abd omen is nontender, NG tube remains in place, and patient is now starting to passing flatus. Patient had a total of 925 ML of gastric output in the last 24 hours, general surgery is following closely. Patient states she usually takes milk of magnesia, and stool softeners. Today's labs have been reviewed, CBC is all within normal limits, white blood cell count is 9.3, hemoglobin is 12.5, platelet count is 285, electrolytes are within normal limits, BUN 17 creatinine 1.08. Urine culture was positive for enterococcus faecalis, blood culture was negative, patient is currently on Unasyn. He is on Symbicort and DuoNeb nebulized treatments. Breathing is stable. 06/09/2021, the patient's abdominal pain has subsided. The patient is passing flatus. She had several bowel movements activity. NG tube has been removed. The patient is currently a clear liquid diet. She had a bout of emesis this morning. Overall, she is doing better. No abdominal pain. She is on antibiotics regarding her enterococcal urinary tract infection the patient is on IV Unasyn. Sodium is at 142 and potassium is at 3.5 and a BUN and creatinine are within normal limits. No fever. No significant respiratory distress. General surgeries on the case regarding her bowel obstruction. Blood culture has been negative. Objective - Vital Signs Vital signs: Vital Signs Temp 98.4 F 06/09/21 08:00 Pulse 80 06/09/21 08:00 Resp 18 06/09/21 08:00 BP 174/70 06/09/21 08:00 Pulse Ox 95 06/09/21 08:00 Intake & Output 06/08/21 06/09/21 06/09/21 18:59 06:59 18:59 Intake Total 1190 118 Output Total 250 150 Balance 940 -150 118 Weight 106.5 kg 92.9 kg Intake: IV 950 Ampicillin-Sulbactam 3 gm 100 In Sodium Chloride 0.9% 100 ml @ 200 mls/hr IVPB Q6HR [facility] Rx#:[id number] Dextrose 5%-0.9% NaCl 1, 600 000 ml @ 75 mls/hr IV . [id number] [facility] Rx#:[id number] Invasive Line 4 30 Invasive Line 5 20 Potassium Chloride 10 meq 200 In Water For Injection 1 100ml.bag @ 100 mls/hr IVPB Q1HR [facility] Rx#: [id number] Oral 240 118 Output: Gastric Drainage 250 Urine 150 Other: Voiding Method Bedside Commode Bedside Commode Bedside Commode # Voids 2 # Bowel Movements 1 - Exam Gen. appearance the patient is calm and she is comfortable. breathing is nonlabored, NG tube has been removed Head exam was generally normal. There was no scleral icterus or corneal arcus. Mucous membranes were moist. Neck was supple and without jugular venous distension, thyromegaly, or carotid bruits. Carotids were easily palpable bilaterally. There was no adenopathy. Lungs sounds are diminished bilaterally along with some prolongation of expiratory phase of breathing. There are expiratory wheezes bilaterally. . The abdomen was soft, non-tender, and without masses, organomegaly, or appreciable enlargement of the abdominal aorta. The patient has no significant bowel sounds on today's evaluation. The bowel sounds have improved compared to yesterday and the patient has adequate bowel sounds Examination of the extremities revealed easily palpable radial, femoral and pedal pulses. There was no cyanosis, clubbing or edema. The patient has vari cose veins bilaterally. Examination of the skin revealed no evidence of significant rashes, suspicious appearing nevi or other concerning lesions. Neurologically the patient is awake and alert and there is no focal neurological deficits. - Labs CBC & Chem 7: 06/08/21 06:45 06/09/21 07:26 Labs: Abnormal Lab Results - Last 24 Hours (Table) 06/08/21 06/09/21 Range/Units 16:28 07:26 Potassium 3.3 L (3.5-5.1) mmol/L Chloride 110 H (98-107) mmol/L Glucose 133 H (74-99) mg/dL Microbiology - Last 24 Hours (Table) 06/03/21 21:00 Blood Culture - Preliminary Blood No Growth after 120 hours Assessment and Plan Plan: 1 UTI secondary to enterococcus currently on IV Unasyn 2 COPD currently inactive in stable and the patient has chronic dyspnea has been vaccinated for COVID-19 3 coronary artery disease with nonocclusive disease based on a cardiac catheterization from 2018 with mild disease involving the LAD, preserved LV function 4 small bowel obstruction, recovered and the NG tube was removed and the patient is passing flatus and bowel movements. 5 obstructive sleep apnea nontolerant to CPAP therapy 6 history of skin cancer in the form of squamous cell carcinoma and basal cell carcinoma and melanoma, all resected 8 history of diverticular disease 9 acid reflux 10 remote history of pulmonary embolism, in a postoperative setting 11 hypertension 12 hypothyroidism 13 Chronic back pain has been on [place] 7.5 and she'll be given 1 tablet every 24 hours on an as-needed basis for ongoing pain. 14 acute kidney injury, recovering, creatinine is back to normal 15 rheumatoid arthritis Plan IV Unasyn can be discontinued and the patient can be switched to Augmentin 875 mg by mouth twice a day Advance diet as tolerated, currently on clear liquid diet and I will leave it up to Gen. surgery to advance her diet Working with physical therapy General surgery consultation Morbidities are all inactive in stable We'll continue to follow
--- NOTE | 2021-06-09 10:57 | P.PN ---
Progress Note - Text Progress Note Date: 06/09/21 The patient's sleeping in her bed. She is difficult to get any information from. On exam vital signs are stable. Abdomen soft. There is no significant tenderness. Resolving colonic ileus. Patient will continue lactulose and have her diet advanced as tolerated.
[2021-06-09] MEDS: DEXTROSE 5%-0.9% NACL 1,000 ML IV SCH ×2 (12:20→23:31)
[2021-06-09] MEDS ORDERED: POTASSIUM CHLORIDE ER 20 MEQ TAB.ER PO STA (12:22)
--- NOTE | 2021-06-09 12:24 | P.PN ---
Subjective This is a pleasant 81 years old female with past medical history of COPD AND CHRONIC HYPOXIC RESPIRATORY FAILURE ON 2.5 L OXYGEN , SHE FOLLOWS UP WITH DR. MURPHY. GERD, Hyperlipidemia, Hypertension, Osteoarthritis (OA), Pulmonary Embolus not on anticoagulation, Rheumatoid Arthritis (RA), Sleep Apnea/CPAP/BIPAP, hypothyroidism, history of basal cell carcinoma of the skin resected, history of melanoma of the skin involving the back, resected, Presents because of nausea, decreased appetite and generalized weakness. Patient states over the last week she was getting episodes of feeling hot with chills with lightheadedness, she does not want to eat but she drinks LIQUIDS. Also she reports worsening of her dyspnea and orthopnea over the last week with worsening cough than usual, she has chronic cough and clear phlegm. She denies any urinary tract symptoms, no dysuria or urgency or hesitancy. No suprapubic tenderness or discomfort. No new back pain. He is really she has constipation however she had 1-2 days episodes of diarrhea which is resolved now, over the last 2 days she did not have bowel movement. She denies any abdominal pain or vomiting. No alcohol, smoking or illicit drugs. Patient not on CPAP. Vitas looks stable, she is to keep liquids breathing rate 20-24, blood pressure 179/84 Labs show unremarkable CBC, INR, low potassium 2.5 came back to 3.3. No sodium 133 and 136. Height creatinine 1.65 came down to 1.36 Urinalysis is suspicious of infection. Coronal virus however is not detected. Troponin elevated 0.04 and 0.035. Her last one was normal 0.030. EKG shows sinus bradycardia at [address]-T changes and QTC 487. Chest x-ray: Cardiomegaly On admission patient received normal saline. Patient was started on aspirin Cardiology team were consulted 06/05/2021 Patient still with generalized weakness, no overt urinary symptoms. No chest pain or dyspnea., However patient feels some heartburn. She is hemodynamically stable, blood pressure elevated 183/79. Hydralazine 50 mg 3 times a day increased to 75 mg. Creatinine back to normal at 1.0, stop IV fluid, patient still might have el ements of chronic kidney disease. Oral Lasix and hold, continue with ceftriaxone, urine culture is negative however urine analysis was repeated a still abnormal. Cardiology recommended no further cardiac workup and elevated troponin related to renal disease. Continue with home oxygen of 30 L/m. Physical therapy: Pending 06/06/2021 Patient today developed severe abdominal periumbilical pain started last night with significant nausea, vomited once. No bowel movement over the last 2 days, no passing gas. Baseline bowel movement is every 2-3 days. Also her abdomen was distended and tender on examination. Abdominal x-ray showed dilated loops suspicious for bowel obstruction. Patient was placed nothing by mouth, IV fluid and pain medication. Surgery team consulted. Other than that she is doing well from cardiology and pulmonary perspective for discharge yesterday Urine culture came pulmonary results for enterococcus, antibiotics were adjusted to Unasyn for now. Start the patient on normal saline at 75 mL/h Monitor potassium and magnesium. Physical therapy pending 06/07/2021 Her abdominal pain got more severe yesterday evening and this morning, NG tube was started yesterday and she has 500 mL of color discharge most likely bile. Also started on Dilaudid 0.5 mg increased to 1 mg every 3 hours when necessary. She is afebrile. Blood pressure slightly elevated and change her blood pressure medication and to IV hydralazine when necessary and clonidine patch 0.3 mg instead of oral hydralazine 75 mg 3 times a day and clonidine 0.3 mg twice a day. We will keep monitor blood pressure closely. Creatinine is stable at 1.06. WBC is slightly elevated at 11.7. Chest x-ray showing NG tube is in place and she has bilateral infiltrates in both lung bases which looks similar to x-ray from 06/03/2021. She remains on Unasyn for urine culture final enterococcus which is sensitive to vancomycin and ampicillin. Also she kept on D5 normal saline at 75 mL/h [employer] already cleared the patient. Keep monitoring labs and electrolytes. Surgery team on the case 06/08/2021 Patient has this discharge from her NG tube around 200 mL this morning. Her abdominal pain and distention almost improved completely. However she still have discharge from NG tube. Surgery team start her on lactulose today. Patient is passing a lot of gas is but no bowel movement yet. Patient remains nothing by mouth currently. She is hemodynamically stable but developing low-grade fever 99.9. Blood pressure is wished to IV hydralazine and clonidine patch. Creatinine is stable at 1.08 and WBC is back to normal today. She remains on Unasyn and D5 normal saline at 75. Keep monitoring labs 06/09/2021 Patient is a well today, tube has been taken out, she had good soft bowel movement this morning. Abdominal pain and distention resolved. And she was placed on clear liquid diet but she vomited once this morning and she wanted after that to be advanced to full liquid diet. Also IV fluid was lowered to 50 mL/h. Hemodynamically stable. Blood pressure slightly elevated but her oral blood pressure medication from home were started. At exchanged to Augmentin. For her enterococcus UTI. Objective - Vital Signs Vital signs: Vital Signs Temp 98.4 F 06/09/21 08:00 Pulse 100 06/09/21 11:03 Resp 18 06/09/21 08:00 BP 174/70 06/09/21 08:00 Pulse Ox 95 06/09/21 08:00 Intake & Output 06/08/21 06/09/21 06/09/21 18:59 06:59 18:59 Intake Total 1190 118 Output Total 250 150 Balance 940 -150 118 Weight 106.5 kg 92.9 kg Intake: IV 950 Ampicillin-Sulbactam 3 gm 100 In Sodium Chloride 0.9% 100 ml @ 200 mls/hr IVPB Q6HR [facility] Rx#:[id number] Dextrose 5%-0.9% NaCl 1, 600 000 ml @ 75 mls/hr IV . [id number] [facility] Rx#:[id number] Invasive Line 4 30 Invasive Line 5 20 Potassium Chloride 10 meq 200 In Water For Injection 1 100ml.bag @ 100 mls/hr IVPB Q1HR [facility] Rx#: [id number] Oral 240 118 Output: Gastric Drainage 250 Urine 150 Other: Voiding Method Bedside Commode Bedside Commode Bedside Commode # Voids 2 1 # Bowel Movements 1 1 - Exam -GENERAL: The patient is alert and oriented x3, not in any acute distress. Well developed, well nourished. Mild general weakness HEENT: Pupils are round and equally reacting to light. EOMI. No scleral icterus. No conjunctival pallor. Normocephalic, atraumatic. No pharyngeal erythema. No thyromegaly. CARDIOVASCULAR: S1 and S2 present. No murmurs, rubs, or gallops. PULMONARY: Chest is clear to auscultation, no wheezing or crackles. -ABDOMEN: Soft, distended with periumbilical tenderness, normoactive bowel sounds. No palpable organomegaly. MUSCULOSKELETAL: No joint swelling or deformity. EXTREMITIES: No cyanosis, clubbing, or pedal edema. NEUROLOGICAL: Gross neurological examination did not reveal any focal deficits. SKIN: No rashes. no petechiae. - Labs CBC & Chem 7: 06/08/21 06:45 06/09/21 07:26 Labs: Abnormal Lab Results - Last 24 Hours (Table) 06/08/21 06/09/21 Range/Units 16:28 07:26 Potassium 3.3 L (3.5-5.1) mmol/L Chloride 110 H (98-107) mmol/L Glucose 133 H (74-99) mg/dL Microbiology - Last 24 Hours (Table) 06/03/21 21:00 Blood Culture - Preliminary Blood No Growth after 120 hours Assessment and Plan Assessment: Acute bowel obstruction enterococcus urinary tract infection Acute COPD exacerbation, mild improved Elevated troponin, cardiac causes were ruled out hypokalemia Chronic hypoxic respiratory failure Acute kidney injury Hypertension Hyperlipidemia History of COPD/asthma, not acute exacerbation History of osteoarthritis History of PE, not on anticoagulation History of rheumatoid arthritis History of sleep apnea Hypothyroidism Plan: This is a pleasant 81 years old female who presents with a gait I an elevated tr oponin and UTI. Nothing by mouth, IV fluids and pain medication and surgical consult. Continue with Augmentin Advance diet Continue gentle hydration Continue with Symbicort. Pulmonary team on the case Labs and medication were reviewed.. Continue same treatment. Continue with symptomatic treatment. Resume home medication. Monitor lytes and vitals. DVT and GI prophylaxis. Further recommendations depends on the clinical course of the patient DVT prophylaxis: Subcutaneous heparin GI Prophylaxis: Pepcid PT/OT: Pending Prognosis is guarded
[2021-06-09] MEDS: AMOXIC-POT CLAV 875-125MG 1 EACH TAB PO SCH (20:51)
[2021-06-09] MEDS: SERTRALINE 50 MG TAB PO SCH (20:51)
[2021-06-09] MEDS: MIRTAZAPINE 15 MG TAB PO SCH (20:51)
[2021-06-10] MEDS: hydrALAZINE HCL 20 MG/ML 1 ML VIAL IVP SCH ×4 (04:14→16:21)
[2021-06-10] MEDS: LEVOTHYROXINE 125 MCG TAB PO SCH (06:15)
[2021-06-10] MEDS: carvediloL 12.5 MG TAB PO SCH ×2 (06:15→16:21)
[2021-06-10] MEDS: SYMBICORT 160-4.5 MCG INHALER INHALATION SCH ×2 (07:41→21:03)
[2021-06-10] MEDS: IPRATROPIUM-ALBUTEROL 3 ML NEB INHALATION SCH ×4 (07:41→21:03)
[2021-06-10] MEDS: cloNIDine HCL 0.2 MG TAB PO SCH ×2 (07:58→22:54)
[2021-06-10] MEDS: LACTULOSE 20 GM/30 ML CUP PO SCH ×2 (07:58→20:23)
[2021-06-10] MEDS: HEPARIN SODIUM,PORCINE/PF 5,000 UNIT/0.5 ML SYRINGE SQ SCH ×2 (07:58→22:55)
[2021-06-10] MEDS: FAMOTIDINE 20 MG TAB PO SCH (07:58)
[2021-06-10] MEDS: AMOXIC-POT CLAV 875-125MG 1 EACH TAB PO SCH ×2 (07:58→22:54)
[2021-06-10] MEDS: ATORVASTATIN 20 MG TAB PO SCH (07:58)
[2021-06-10 09:03] LABS: Calcium 8.9 mg/dL (8.4-10.2); Magnesium 2.1 mg/dL (1.6-2.3); Potassium 3.4 mmol/L (3.5-5.1)
--- NOTE | 2021-06-10 09:49 | P.PN ---
Subjective Progress Note Date: 06/10/21 81-year-old female patient, presented to hospital because of feeling weak, nausea, dry heaves, oral dryness, increased cough. No significant chest pain or shortness of breath. No lightheadedness, dizziness, syncope, angina, palpitations, pleurisy or hemoptysis. Denied having any fever or chills. Emmanuel ed having any nausea vomiting or diarrhea or abdominal pain. She is known to have COPD, obstructive sleep apnea and hypertension and hyperlipidemia. The patient is also known to have mild nonobstructive CAD and based on recent cardiac catheterization from 2017, the patient ejection fraction of 60% with mild nonobstructive CAD involving the proximal LAD. Echo from October 2020 showed an ejection fraction of 50-55% and the patient also had a mild mitral regurgitation. She is also known to have rheumatoid arthritis and skin cancer that has been resected in the form of melanoma and basal cell carcinoma. In emergency, workup has been initiated and the patient had a CBC that was essentially unremarkable. The patient's blood work showed a sodium of 133 with a potassium of 2.5 at a time of admission with a creatinine of 1.65 and a BUN of 38. Troponins were 0.04, 0.03 and 0.03 respectively 3. ProBNP level was 313. TSH was normal. EKG was showing sinus bradycardia, no acute ischemic changes. COVID-19 testing was also negative. The patienthad a chest x-ray that was essentially within normal with some cardiomegaly. UA was abnormal. Evaluation on today's evaluation of 06/05/2021, the patient is feeling much better. Energy level is improved significantly and the patient is working with physical therapy. No more fever. The urine cultures still pending for now. The patient remains on IV Rocephin. No nausea. No vomiting. No diarrhea. No abdominal pain. No chest pain. No other significant events overnight. The electrolytes all within normal limits. Creatinine is normalized and is down to 1.09 with a BUN of 25. COVID-19 testing came back negative. No other sign ificant events overnight. On today's evaluation of 06/06/2021, the patient is being treated for an enterococcal UTI. Urine culture came back positive for enterococcus and the patient wasto Unasyn. Nevertheless, as of yesterday, the patient developed some periumbilical pain that was quite achy and crampy. She hasn't had a bowel movement for the past 2-3 days. Flat film of the abdomen was done and showed some dilated loops of bowel. Gen. surgery consultation was obtained and a CAT scan of the abdomen and pelvis is in progress. Otherwise, electrodes are normal, her potassium level is at 3.2 that needs to be replaced, creatinine is at 1.1. She is on Unasyn regarding her enterococcal UTI. No nausea. No vomiting. No fever. No chills. IV fluids are in the form of [id number] at the rate of 75mL an hour. The patient is also working with physical therapy. She is on oxygen at 3 L per minute nasal cannula. 06/07/2021, the patient is being seen for a follow-up. She was having abdominal pain. Stop the abdomen was done yesterday and it showed evidence of bowel obstruction involving the small bowel. NG tube was inserted and a total of 2 75 mL and output was obtained. Currently she is calm and comfortable. Her CAT scan of the abdomen showed multiple dilated loops of small bowel along with air- fluid levels with dilatation of the small bowel up to 3.8 cm in size. Distal small bowel loops were decompressed. Meanwhile, the patient is still being treated for a enterococcal UTI. Currently she is on Unasyn. No respiratory distress. No fever. No chills. Hemodynamically stable and she is currently untreated oxygen by nasal cannula with a pulse ox of 98%. IV fluids are in the form of D5 normal saline at the rate of 75 mL an hour. Her blood work is showing a white cell count of 11.7 with a hemoglobin of 13.5. Electrodes are normal and the potassium needs to be replaced at 3.1. The glucose at 153. BUN and creatinine are normal with a creatinine of 1.06. On 06/08/2021 patient is seen in follow-up on 3 south monitored bed, she said she had a rough night, but denies any worsening dyspnea, lung sounds are positive for some rare scattered rhonchi, no significant wheezing, she remains on 3 L of oxygen pulse ox of 96%, she has had a low-grade fevers overnight, abd omen is nontender, NG tube remains in place, and patient is now starting to passing flatus. Patient had a total of 925 ML of gastric output in the last 24 hours, general surgery is following closely. Patient states she usually takes milk of magnesia, and stool softeners. Today's labs have been reviewed, CBC is all within normal limits, white blood cell count is 9.3, hemoglobin is 12.5, platelet count is 285, electrolytes are within normal limits, BUN 17 creatinine 1.08. Urine culture was positive for enterococcus faecalis, blood culture was negative, patient is currently on Unasyn. He is on Symbicort and DuoNeb nebulized treatments. Breathing is stable. 06/09/2021, the patient's abdominal pain has subsided. The patient is passing flatus. She had several bowel movements activity. NG tube has been removed. The patient is currently a clear liquid diet. She had a bout of emesis this morning. Overall, she is doing better. No abdominal pain. She is on antibiotics regarding her enterococcal urinary tract infection the patient is on IV Unasyn. Sodium is at 142 and potassium is at 3.5 and a BUN and creatinine are within normal limits. No fever. No significant respiratory distress. General surgeries on the case regarding her bowel obstruction. Blood culture has been negative. On today's evaluation of 06/10/2021, the patient is on full liquid diet and she is having bowel movements and her diet can be advanced. No nausea. No emesis. She has adequate bowel sounds. She is passing flatus. Electrolytes from yesterday were all within normal limits. Blood work from today in the involving electrolytes and renal function are all stable. The patient is currently on oral Augmentin for respiratory distress. No other issues otherwise. Objective - Vital Signs Vital signs: Vital Signs Temp 98.6 F 06/10/21 08:00 Pulse 70 06/10/21 08:00 Resp 20 06/10/21 08:00 BP 161/69 06/10/21 08:00 Pulse Ox 96 06/10/21 08:00 Intake & Output 06/09/21 06/10/21 06/10/21 18:59 06:59 18:59 Intake Total 236 250 Output Total 4 200 Balance 232 50 Weight 108.6 kg Intake: Intake, IV Titration 250 Amount Dextrose 5%-0.9% NaCl 1, 250 000 ml @ 50 mls/hr IV . Q20H [facility] Rx#:[id number] Oral 236 Output: Urine 200 Urine/Stool Mix 4 Other: Voiding Method Bedside Commode Bedside Commode Bedside Commode Diaper # Voids 1 1 # Bowel Movements 1 - Exam Gen. appearance the patient is calm and she is comfortable. breathing is nonlabored, NG tube has been removed Head exam was generally normal. There was no scleral icterus or corneal arcus. Mucous membranes were moist. Neck was supple and without jugular venous distension, thyromegaly, or carotid bruits. Carotids were easily palpable bilaterally. There was no adenopathy. Lungs sounds are diminished bilaterally along with some prolongation of expiratory phase of breathing. There are expiratory wheezes bilaterally. . The abdomen was soft, non-tender, and without masses, organomegaly, or appreciable enlargement of the abdominal aorta. The patient has no significant bowel sounds on today's evaluation. The bowel sounds have improved compared to yesterday and the patient has adequate bowel sounds Examination of the extremities revealed easily palpable radial, femoral and pedal pulses. There was no cyanosis, clubbing or edema. The patient has varicose veins bilaterally. Examination of the skin revealed no evidence of significant rashes, suspicious appearing nevi or other concerning lesions. Neurologically the patient is awake and alert and there is no focal neurological deficits. - Labs CBC & Chem 7: 06/08/21 06:45 06/10/21 08:09 Labs: Abnormal Lab Results - Last 24 Hours (Table) 06/10/21 Range/Units 08:09 Potassium 3.4 L (3.5-5.1) mmol/L Chloride 108 H (98-107) mmol/L Glucose 144 H (74-99) mg/dL Microbiology - Last 24 Hours (Table) 06/03/21 21:00 Blood Culture - Final Blood No Growth after 144 hours Assessment and Plan Plan: 1 UTI secondary to enterococcus currently on Augmentin 2 COPD currently inactive in stable and the patient has chronic dyspnea has been vaccinated for COVID-19 3 coronary artery disease with nonocclusive disease based on a cardiac catheterization from 2018 with mild disease involving the LAD, preserved LV function 4 small bowel obstruction, recovered and the NG tube was removed and the patient is passing flatus and bowel movements. Diet is to be advanced 5 obstructive sleep apnea nontolerant to CPAP therapy 6 history of skin cancer in the form of squamous cell carcinoma and basal cell carcinoma and melanoma, all resected 8 history of diverticular disease 9 acid reflux 10 remote history of pulmonary embolism, in a postoperative setting 11 hypertension 12 hypothyroidism 13 Chronic back pain has been on [place] 7.5 and she'll be given 1 tablet every 24 hours on an as-needed basis for ongoing pain. 14 acute kidney injury, recovering, creatinine is back to normal 15 rheumatoid arthritis Plan Augmentin 875 mg by mouth twice a day Advance diet as tolerated, currently on clear liquid diet and I will leave it up to Gen. surgery to advance her diet Working with physical therapy General surgery consultation Morbidities are all inactive in stable Pulmonary service will sign off and the patient should be able to advance her diet and discharge within next 24 hours.
--- NOTE | 2021-06-10 10:30 | P.PN ---
Progress Note - Text Progress Note Date: 06/10/21 Patient states she feels better today. She has had bowel movements and flatus. On exam vital signs are stable. Abdomen soft. Resolving ileus. Patient will continue supportive care. She'll have her diet advanced.
--- NOTE | 2021-06-10 14:18 | P.PN ---
Subjective This is a pleasant 81 years old female with past medical history of COPD AND CHRONIC HYPOXIC RESPIRATORY FAILURE ON 2.5 L OXYGEN , SHE FOLLOWS UP WITH DR. MURPHY. GERD, Hyperlipidemia, Hypertension, Osteoarthritis (OA), Pulmonary Embolus not on anticoagulation, Rheumatoid Arthritis (RA), Sleep Apnea/CPAP/BIPAP, hypothyroidism, history of basal cell carcinoma of the skin resected, history of melanoma of the skin involving the back, resected, Presents because of nausea, decreased appetite and generalized weakness. Patient states over the last week she was getting episodes of feeling hot with chills with lightheadedness, she does not want to eat but she drinks LIQUIDS. Also she reports worsening of her dyspnea and orthopnea over the last week with worsening cough than usual, she has chronic cough and clear phlegm. She denies any urinary tract symptoms, no dysuria or urgency or hesitancy. No suprapubic tenderness or discomfort. No new back pain. He is really she has constipation however she had 1-2 days episodes of diarrhea which is resolved now, over the last 2 days she did not have bowel movement. She denies any abdominal pain or vomiting. No alcohol, smoking or illicit drugs. Patient not on CPAP. Vitas looks stable, she is to keep liquids breathing rate 20-24, blood pressure 179/84 Labs show unremarkable CBC, INR, low potassium 2.5 came back to 3.3. No sodium 133 and 136. Height creatinine 1.65 came down to 1.36 Urinalysis is suspicious of infection. Coronal virus however is not detected. Troponin elevated 0.04 and 0.035. Her last one was normal 0.030. EKG shows sinus bradycardia at [address]-T changes and QTC 487. Chest x-ray: Cardiomegaly On admission patient received normal saline. Patient was started on aspirin Cardiology team were consulted 06/05/2021 Patient still with generalized weakness, no overt urinary symptoms. No chest pain or dyspnea., However patient feels some heartburn. She is hemodynamically stable, blood pressure elevated 183/79. Hydralazine 50 mg 3 times a day increased to 75 mg. Creatinine back to normal at 1.0, stop IV fluid, patient still might have el ements of chronic kidney disease. Oral Lasix and hold, continue with ceftriaxone, urine culture is negative however urine analysis was repeated a still abnormal. Cardiology recommended no further cardiac workup and elevated troponin related to renal disease. Continue with home oxygen of 30 L/m. Physical therapy: Pending 06/06/2021 Patient today developed severe abdominal periumbilical pain started last night with significant nausea, vomited once. No bowel movement over the last 2 days, no passing gas. Baseline bowel movement is every 2-3 days. Also her abdomen was distended and tender on examination. Abdominal x-ray showed dilated loops suspicious for bowel obstruction. Patient was placed nothing by mouth, IV fluid and pain medication. Surgery team consulted. Other than that she is doing well from cardiology and pulmonary perspective for discharge yesterday Urine culture came pulmonary results for enterococcus, antibiotics were adjusted to Unasyn for now. Start the patient on normal saline at 75 mL/h Monitor potassium and magnesium. Physical therapy pending 06/07/2021 Her abdominal pain got more severe yesterday evening and this morning, NG tube was started yesterday and she has 500 mL of color discharge most likely bile. Also started on Dilaudid 0.5 mg increased to 1 mg every 3 hours when necessary. She is afebrile. Blood pressure slightly elevated and change her blood pressure medication and to IV hydralazine when necessary and clonidine patch 0.3 mg instead of oral hydralazine 75 mg 3 times a day and clonidine 0.3 mg twice a day. We will keep monitor blood pressure closely. Creatinine is stable at 1.06. WBC is slightly elevated at 11.7. Chest x-ray showing NG tube is in place and she has bilateral infiltrates in both lung bases which looks similar to x-ray from 06/03/2021. She remains on Unasyn for urine culture final enterococcus which is sensitive to vancomycin and ampicillin. Also she kept on D5 normal saline at 75 mL/h [employer] Repair Person already cleared the patient. Keep monitoring labs and electrolytes. Surgery team on the case 06/08/2021 Patient has this discharge from her NG tube around 200 mL this morning. Her abdominal pain and distention almost improved completely. However she still have discharge from NG tube. Surgery team start her on lactulose today. Patient is passing a lot of gas is but no bowel movement yet. Patient remains nothing by mouth currently. She is hemodynamically stable but developing low-grade fever 99.9. Blood pressure is wished to IV hydralazine and clonidine patch. Creatinine is stable at 1.08 and WBC is back to normal today. She remains on Unasyn and D5 normal saline at 75. Keep monitoring labs 06/09/2021 Patient is a well today, tube has been taken out, she had good soft bowel movement this morning. Abdominal pain and distention resolved. And she was placed on clear liquid diet but she vomited once this morning and she wanted after that to be advanced to full liquid diet. Also IV fluid was lowered to 50 mL/h. Hemodynamically stable. Blood pressure slightly elevated but her oral blood pressure medication from home were started. At exchanged to Augmentin. For her enterococcus UTI. 06/10/2021 Today patient is improving significantly. She is tolerating liquid diet that was to be advanced. IV fluids were stopped. No abdominal pain. Blood pressure elevated 171/72 and she is on clonidine and metoprolol, we will hydralazine 50 mg 3 times a day. She remains on Augmentin for her enterococcus UTI. Oral Lasix remains on hold. Respiratory status is better and pulmonary team signed off Objective - Vital Signs Vital signs: Vital Signs Temp 98.6 F 06/10/21 11:46 Pulse 67 06/10/21 14:00 Resp 19 06/10/21 14:00 BP 171/72 06/10/21 11:46 Pulse Ox 99 06/10/21 11:46 Intake & Output 06/09/21 06/10/21 06/10/21 18:59 06:59 18:59 Intake Total 236 250 Output Total 4 200 Balance 232 50 Weight 108.6 kg Intake: Intake, IV Titration 250 Amount Dextrose 5%-0.9% NaCl 1, 250 000 ml @ 50 mls/hr IV . [facility] Rx#:[id number] Oral 236 Output: Urine 200 Urine/Stool Mix 4 Other: Voiding Method Bedside Commode Bedside Commode Bedside Commode Diaper # Voids 1 1 1 # Bowel Movements 1 1 - Exam -GENERAL: The patient is alert and oriented x3, not in any acute distress. Well developed, well nourished. Mild general weakness HEENT: Pupils are round and equally reacting to light. EOMI. No scleral icterus. No conjunctival pallor. Normocephalic, atraumatic. No pharyngeal erythema. No thyromegaly. CARDIOVASCULAR: S1 and S2 present. No murmurs, rubs, or gallops. PULMONARY: Chest is clear to auscultation, no wheezing or crackles. -ABDOMEN: Soft, distended with periumbilical tenderness, normoactive bowel sounds. No palpable organomegaly. MUSCULOSKELETAL: No joint swelling or deformity. EXTREMITIES: No cyanosis, clubbing, or pedal edema. NEUROLOGICAL: Gross neurological examination did not reveal any focal deficits. SKIN: No rashes. no petechiae. - Labs CBC & Chem 7: 06/08/21 06:45 06/10/21 08:09 Labs: Abnormal Lab Results - Last 24 Hours (Table) 06/10/21 Range/Units 08:09 Potassium 3.4 L (3.5-5.1) mmol/L Chloride 108 H (98-107) mmol/L Glucose 144 H (74-99) mg/dL Microbiology - Last 24 Hours (Table) 06/03/21 21:00 Blood Culture - Final Blood No Growth after 144 hours Assessment and Plan Assessment: Acute bowel obstruction , resolved enterococcus urinary tract infection Acute COPD exacerbation, mild . improved Elevated troponin, cardiac causes were ruled out hypokalemia Chronic hypoxic respiratory failure Acute kidney injury Hypertension Hyperlipidemia History of COPD/asthma, not acute exacerbation History of osteoarthritis History of PE, not on anticoagulation History of rheumatoid arthritis History of sleep apnea Hypothyroidism Plan: This is a pleasant 81 years old female who presents with a gait I an elevated troponin and UTI. Advance diet. Discontinue IV fluid Continue with Augmentin Continue with Symbicort. Pulmonary team on the case and signed off Labs and medication were reviewed.. Continue same treatment. Continue with symptomatic treatment. Resume home medication. Monitor lytes and vitals. DVT and GI prophylaxis. Further recommendations depends on the clinical course of the patient DVT prophylaxis: Subcutaneous heparin GI Prophylaxis: Pepcid PT/OT: Pending Prognosis is guarded
[2021-06-10] MEDS: hydrALAZINE HCL 50 MG TAB PO SCH ×2 (16:21→22:54)
[2021-06-10] MEDS: MIRTAZAPINE 15 MG TAB PO SCH (22:54)
[2021-06-10] MEDS: HYDROcodone/APAP 7.5-325MG 1 EACH TAB PO PRN (22:55)
[2021-06-10] MEDS: SERTRALINE 50 MG TAB PO SCH (22:55)
[2021-06-11] MEDS: LEVOTHYROXINE 125 MCG TAB PO SCH (06:48)
[2021-06-11] MEDS: carvediloL 12.5 MG TAB PO SCH ×2 (06:48→15:47)
[2021-06-11] MEDS: AMOXIC-POT CLAV 875-125MG 1 EACH TAB PO SCH (07:49)
[2021-06-11] MEDS: cloNIDine HCL 0.2 MG TAB PO SCH (07:49)
[2021-06-11] MEDS: HEPARIN SODIUM,PORCINE/PF 5,000 UNIT/0.5 ML SYRINGE SQ SCH (07:49)
[2021-06-11] MEDS: ATORVASTATIN 20 MG TAB PO SCH (07:49)
[2021-06-11] MEDS: hydrALAZINE HCL 50 MG TAB PO SCH (07:49)
[2021-06-11] MEDS: FAMOTIDINE 20 MG TAB PO SCH (07:49)
[2021-06-11] MEDS: LACTULOSE 20 GM/30 ML CUP PO SCH (07:50)
[2021-06-11] MEDS: SYMBICORT 160-4.5 MCG INHALER INHALATION SCH (08:41)
[2021-06-11] MEDS: IPRATROPIUM-ALBUTEROL 3 ML NEB INHALATION SCH ×3 (08:41→15:38)
[2021-06-11 09:09] LABS: Basophils % (A) 1 %; Eosinophils # (A) 0.2 k/uL (0-0.7); Eosinophils % (A) 3 %; HCT 34.8 % (34.0-46.0); HGB 11.2 gm/dL (11.4-16.0); Lymphocytes # (A) 1.6 k/uL (1.0-4.8); Lymphocytes % (A) 29 %; MCH 31.2 pg (25.0-35.0); MCV 97.5 fL (80.0-100.0); Mean Platelet Volume 8.8; Monocytes # (A) 0.3 k/uL (0-1.0); Monocytes % (A) 5 %; Neutrophils # (A) 3.4 k/uL (1.3-7.7); Neutrophils % (A) 62 %; Platelet Count 196 k/uL (150-450); RBC 3.57 m/uL (3.80-5.40); RDW 14.9 % (11.5-15.5); WBC 5.5 k/uL (3.8-10.6)
[2021-06-11 09:30] LABS: Potassium 4.1 mmol/L (3.5-5.1)
[2021-06-11] MEDS ORDERED: DOCUSATE 100 MG CAP PO SCH (10:00)
[2021-06-11] MEDS ORDERED: BENZOCAINE/MENTHOL LOZENG 1 EACH LOZENGE MUCOUS MEM PRN (12:18)
[2021-06-11] MEDS ORDERED: FUROSEMIDE 40 MG TAB PO SCH (12:30)
[2021-06-11] MEDS: HYDROcodone/APAP 7.5-325MG 1 EACH TAB PO PRN (13:26)
--- NOTE | 2021-06-11 13:44 | P.PN ---
Subjective Progress Note Date: 06/11/21 CHIEF COMPLAINT: ileus HISTORY OF PRESENT ILLNESS: Surgical service is following regards to patient's ileus. Patient is tolerating diet. She is having bowel movements and flatus. She denies any abdominal pain. Afebrile. WBC 5.5 potassium 4.1. Patient refusing lactulose and requesting stool softener. PHYSICAL EXAM: VITAL SIGNS: Reviewed. GENERAL: Well-developed in no acute distress. HEENT: No sclera icterus. Extraocular movements grossly intact. Moist buccal mucosa. Head is atraumatic, normocephalic. ABDOMEN: Soft. Nontender nondistended NEUROLOGIC: Alert and oriented. Cranial nerves II through XII grossly intact. ASSESSMENT: 1. Ileus resolved 2. Hypokalemia improved 3. History of multiple abdominal surgeries PLAN: -Continue supportive care -No surgical intervention planned -Add Colace -Patient can be discharged from surgical standpoint when medically stable Physician Senior Investigator note has been reviewed by physician. Signing provider agrees with the documented findings, assessment, and plan of care. Objective - Vital Signs Vital signs: Vital Signs Temp 98.0 F 06/11/21 07:53 Pulse 70 06/11/21 08:53 Resp 19 06/11/21 08:00 BP 185/66 06/11/21 07:53 Pulse Ox 98 06/11/21 07:53 Intake & Output 06/10/21 06/11/21 06/11/21 18:59 06:59 18:59 Intake Total 320 300 480 Output Total 0 Balance 320 300 480 Intake: Oral 320 300 480 Output: Urine 0 Stool 0 Urine/Stool Mix 0 Other: Voiding Method Bedside Commode Bedside Commode Bedside Commode Diaper Diaper Diaper # Voids 1 5 0 # Bowel Movements 1 0 - Labs CBC & Chem 7: 06/11/21 08:54 06/11/21 08:54 Labs: Abnormal Lab Results - Last 24 Hours (Table) 06/11/21 06/11/21 Range/Units 08:54 08:54 RBC 3.57 L (3.80-5.40) m/uL Hgb 11.2 L (11.4-16.0) gm/dL Glucose 171 H (74-99) mg/dL
[2021-06-11 15:27] VITALS: BP 176/68; RESP 19; TEMP 98
--- NOTE | 2021-06-11 15:28 | P.DS ---
Providers Date of admission: 06/06/21 14:59 Attending physician: Ashley Estes MD Consults: 06/03/21 22:42 Consult Physician Urgent Consulting Provider: Hans Rudolph Consult Reason/Comments: elevated troponin Do you want consulting provider notified?: Yes 06/04/21 09:46 Consult Physician Urgent Consulting Provider: Brennen Bose Consult Reason/Comments: copd Do you want consulting provider notified?: Yes 06/06/21 10:47 Consult Physician Urgent Consulting Provider: Fede Sneed Consult Reason/Comments: bowel obstruction Do you want consulting provider notified?: Already Contacted Primary care physician: Ying Pearson [facility] Course: Final diagnoses Acute bowel obstruction , resolved enterococcus urinary tract infection Acute COPD exacerbation, mild . improved Elevated troponin, cardiac causes were ruled out hypokalemia, repleted Chronic hypoxic respiratory failure Acute kidney injury, resolved. Hypertension Hyperlipidemia History of COPD/asthma History of osteoarthritis History of PE, not on anticoagulation History of rheumatoid arthritis History of sleep apnea Hypothyroidism Discharge disposition Patient was discharged to [facility] for rehab. She will follow up with primary care, cardiology, GI. Scripts are given. Hospital course This is a pleasant 81-year-old female who came to the hospital with complaints of nausea, decreased appetite, generalized weakness. Patient states over the last week she was getting episodes of Hot with Chills Lightheadedness and a Decreased Appetite. She Was Drinking Liquids. Patient Has a past Medical History for COPD, Chronic Hypoxic Respiratory Failure onto a Half Liters Oxygen at Home [place] up with Dr. Chamorro, GERD, Hyperlipidemia, Hypertension, Osteoarthritis. Also, History of Pulmonary Embolism Not on Any Anticoagulation, Rheumatoid Arthritis, Sleep Apnea, CPAP BiPAP, Hypothyroidism, History of Basal Cell Carcinoma of the Skin Which Was Resected, History of Melanoma of the Skin Involving the Back Which Was Resected. Patient is also reporting worsening dyspnea and orthopnea with a cough. She does have a chronic cough and clear phlegm. She denied any suprapubic tenderness, discomfort, no new back pain, denies any dysuria, urgency, hesitancy. Patient has a history of constipation, she did have 1-2 days of diarrhea which had resolved. And then over the last 2 days she did not have a bowel movement. Patient had an abdominal pelvis CT completed which showed multiple dilated loops of small bowel with air fluid levels seen measuring up to 3.8 cm. There was distal small bowel loops are decompressed. Partial or early complete small bowel obstruction was difficult to exclude. Patient subsequently had an NG tube placed which was removed yesterday. Patient is tolerating a full liquid diet well. She did have a large soft bowel movement negative for any blood today. She was refusing lactulose and responded well to Colace. Labs on admission included a creatinine of 1.65 and a BUN of 38. Her BUN and CR on discharge are 10 and 0.75 on discharge. Her Lasix was initially on hold, we will resume at half dose of 40 mg by mouth daily. All blood pressure medications have been resumed. The patient had a positive UTI which showed resistant Enterococcus faecalis on culture. She completed antibiotic therapy IP will finish a 3 day course of oral Ceftin on discharge. Potassium initially was 2.5, it was replaced and on day of discharge her potassium level is 4.1. Hemoglobin on admission was 13.1 and is now 11.2, there have been no signs of active bleeding. Patient did experience hypertension this admission, her hydralazine was increased to 75 mg by mouth 3 times a day. Patient has remained afebrile. Oxygen saturation remains 97-98% on her home dose of 2.5 liters NC. 06/11/2021 Patient is stable medically for discharge to rehab at [facility]. She is on her home dose of nasal cannula maintaining oxygen saturation at 98%. She denies any chest pain, shortness of breath, cough. She does report a mild sore throat possibly due to the NG tube, she can take Cepacol lozenges for this. Patient will continue on Colace for stool softener. Blood pressure medications have been adjusted. Patient's lungs are clear to auscultation, S1-S2 auscultated, abdomen is soft and nontender and active bowel sounds. Patient is passing gas. She had a bowel movement today 06/11/2021. Focal neurological exam is negative. Blood pressure today is 176/68, hydralazine has been increased on discharge. Heart rate is 60, afebrile at 98.2, 97% on 2 L nasal cannula. Repeat CBC and BMP in 3 days. Please see medication reconciliation for list of current medications. Thank you for allowing us to participate in the care of this patient. Patient Condition at Discharge: Stable Plan - Discharge Summary Discharge Rx Participant: No New Discharge Prescriptions: New hydrALAZINE HCL [Apresoline] 75 mg PO TID #270 tab Furosemide [Lasix] 40 mg PO DAILY #30 tab Cefuroxime Axetil [Ceftin] 500 mg PO BID 3 Days #6 tab Budesonide-Formot 160-4.5 Mcg [Symbicort 160-4.5 Mcg Inhaler] 2 puff INHALATION RT-BID #1 inh Benzocaine/Menthol Lozeng [Cepacol lozenge] 1 each MUCOUS MEM Q4HR PRN lozenge PRN Reason: Sore Throat Docusate [Colace] 100 mg PO BID cap Famotidine [Pepcid] 20 mg PO DAILY #30 tab Continue Colon Probiotic 1 tab PO DAILY Simvastatin 40 mg PO HS Levothyroxine Sodium [Synthroid] 125 mcg PO DAILY amLODIPine [Norvasc] 10 mg PO DAILY carvediloL [Coreg*] 12.5 mg PO BID-W/MEALS #60 tab Mirtazapine [Remeron] 15 mg PO HS #30 tab Elderberry Fruit and Flower [Black Elderberry 575 mg Cap] 1 cap PO BID Albuterol Sulfate [Albuterol Sulfate Hfa] 2 puff PO RT-Q6H PRN PRN Reason: Shortness Of Breath Sertraline [Zoloft] 50 mg PO HS Clotrimazole/Betamethasone Dip [Lotrisone Cream] 1 applic TOPICAL BID HYDROcodone/APAP 7.5-325MG [[place] 7.5-325] 1 tab PO TID PRN PRN Reason: Pain Spironolactone 25 mg PO DAILY cloNIDine HCL [Catapres] 0.3 mg PO BID Discontinued Furosemide [Lasix] 40 mg PO BID Furosemide [Lasix] 40 mg PO BID diphenhydrAMINE HCL [Benadryl] 25 mg PO BID hydrALAZINE HCL 50 mg PO TID Discharge Medication List Colon Probiotic 1 tab PO DAILY 10/18/20 [History] Levothyroxine Sodium [Synthroid] 125 mcg PO DAILY 10/18/20 [History] Simvastatin 40 mg PO HS 10/18/20 [History] amLODIPine [Norvasc] 10 mg PO DAILY 10/18/20 [History] Mirtazapine [Remeron] 15 mg PO HS #30 tab 10/22/20 [Rx] carvediloL [Coreg*] 12.5 mg PO BID-W/MEALS #60 tab 10/22/20 [Rx] Albuterol Sulfate [Albuterol Sulfate Hfa] 2 puff PO RT-Q6H PRN 06/03/21 [History] Clotrimazole/Betamethasone Dip [Lotrisone Cream] 1 applic TOPICAL BID 06/03/21 [History] Elderberry Fruit and Flower [Black Elderberry 575 mg Cap] 1 cap PO BID 06/03/21 [History] HYDROcodone/APAP 7.5-325MG [[place] 7.5-325] 1 tab PO TID PRN 06/03/21 [History] Sertraline [Zoloft] 50 mg PO HS 06/03/21 [History] Spironolactone 25 mg PO DAILY 06/03/21 [History] cloNIDine HCL [Catapres] 0.3 mg PO BID 06/03/21 [History] Budesonide-Formot 160-4.5 Mcg [Symbicort 160-4.5 Mcg Inhaler] 2 puff INHALATION RT-BID #1 inh 06/05/21 [Rx] Cefuroxime Axetil [Ceftin] 500 mg PO BID 3 Days #6 tab 06/05/21 [Rx] hydrALAZINE HCL [Apresoline] 75 mg PO TID #270 tab 06/05/21 [Rx] Benzocaine/Menthol Lozeng [Cepacol lozenge] 1 each MUCOUS MEM Q4HR PRN lozenge 06/11/21 [Rx] Docusate [Colace] 100 mg PO BID cap 06/11/21 [Rx] Famotidine [Pepcid] 20 mg PO DAILY #30 tab 06/11/21 [Rx] Furosemide [Lasix] 40 mg PO DAILY #30 tab 06/11/21 [Rx] Follow up Appointment(s)/Referral(s): Ying Pearson MD [Primary Care Provider] - 06/08/21 4:15 pm Hans Rudolph MD [STAFF PHYSICIAN] - 06/26/21 4:45 pm (Your appointment On June 26, 2021 is at the [facility] ) Sarah Conde MD [STAFF PHYSICIAN] - 2 Weeks [facility], [NON-STAFF] - Ambulatory/Diagnostic Orders: Basic Metabolic Panel [LAB.AMB] Time Frame: 3 Days, Location: None Selected Complete Blood Count w/diff [LAB.AMB] Time Frame: 3 Days, Location: None Selected Activity/Diet/Wound Care/Special Instructions: Heart healthy diet. Fluid restriction Activity is restricted till you see your doctor Discharge Disposition: HOME SELF-CARE
[2021-06-11 15:50] VITALS: PULSE 72
[2021-06-11] MEDS ORDERED: hydrALAZINE HCL 50 MG TAB PO SCH (16:00)
[2021-06-11] MEDS ORDERED: hydrALAZINE HCL 25 MG TAB PO SCH ×2 (16:00)
== END 2021-06-11 17:12 | DRG 389 ==
LOC: EC 19:30 → 3SCARD 22:41 → OBSVTOIN 06-06 14:59
PROVIDERS: ADMIT Internal Medicine; ATTEND Internal Medicine
PROC: 0D9670Z Drainage of Stomach with Drainage Device, Via Natural or Artificial Opening (ICD-10-PCS; principal; 2021-06-06)
PROC: 05HC33Z Insertion of Infusion Device into Left Basilic Vein, Percutaneous Approach (ICD-10-PCS; 2021-06-08 08:55)
DX: K56.600 Partial intestinal obstruction, unspecified as to cause (principal); J44.1 Chronic obstructive pulmonary disease with (acute) exacerbation; N17.9 Acute kidney failure, unspecified; J96.11 Chronic respiratory failure with hypoxia; N39.0 Urinary tract infection, site not specified; I11.0 Hypertensive heart disease with heart failure; I50.9 Heart failure, unspecified; Z99.81 Dependence on supplemental oxygen; M06.9 Rheumatoid arthritis, unspecified; Z20.822 Contact with and (suspected) exposure to COVID-19; E86.0 Dehydration; E87.6 Hypokalemia; B95.2 Enterococcus as the cause of diseases classified elsewhere; K21.9 Gastro-esophageal reflux disease without esophagitis; E78.5 Hyperlipidemia, unspecified; I25.10 Atherosclerotic heart disease of native coronary artery without angina pectoris; I34.0 Nonrheumatic mitral (valve) insufficiency; E89.0 Postprocedural hypothyroidism; G47.33 Obstructive sleep apnea (adult) (pediatric); K59.00 Constipation, unspecified; R00.1 Bradycardia, unspecified; K57.90 Diverticulosis of intestine, part unspecified, without perforation or abscess without bleeding; G89.29 Other chronic pain; M54.9 Dorsalgia, unspecified; M19.90 Unspecified osteoarthritis, unspecified site; N60.19 Diffuse cystic mastopathy of unspecified breast; I83.90 Asymptomatic varicose veins of unspecified lower extremity; F41.9 Anxiety disorder, unspecified; R77.8 Other specified abnormalities of plasma proteins; Z79.890 Hormone replacement therapy; Z79.899 Other long term (current) drug therapy; Z87.891 Personal history of nicotine dependence; Z85.820 Personal history of malignant melanoma of skin; Z87.01 Personal history of pneumonia (recurrent); Z86.711 Personal history of pulmonary embolism; Z90.49 Acquired absence of other specified parts of digestive tract; Z87.19 Personal history of other diseases of the digestive system; Z90.710 Acquired absence of both cervix and uterus; Z96.652 Presence of left artificial knee joint; Z87.42 Personal history of other diseases of the female genital tract; Z90.721 Acquired absence of ovaries, unilateral; Z90.79 Acquired absence of other genital organ(s); Z89.021 Acquired absence of right finger(s); Z98.890 Other specified postprocedural states; Z88.6 Allergy status to analgesic agent; Z88.4 Allergy status to anesthetic agent; Z88.1 Allergy status to other antibiotic agents; Z88.5 Allergy status to narcotic agent; Z88.2 Allergy status to sulfonamides; Z91.048 Other nonmedicinal substance allergy status; Z83.3 Family history of diabetes mellitus; Z82.5 Family history of asthma and other chronic lower respiratory diseases; Z80.1 Family history of malignant neoplasm of trachea, bronchus and lung; Z82.49 Family history of ischemic heart disease and other diseases of the circulatory system
CPT/HCPCS: 36410; 36415; 71045; 74019; 74176; 76937; 80048; 80053; 81001; 83605; 83735; 83880; 84132; 84443; 84484; 85025; 85027; 85610; 85730; 87040; 87077; 87086; 87186; 87635; 93005; 94640; 94760; 96361; 96374; 99285

== ENCOUNTER 2021-06-17 19:33 | Emergency (ER) | payer MEDICARE ==
[2021-06-17 19:47] VITALS: RESP 18; TEMP 99
[2021-06-17] MEDS ORDERED: LIDOCAINE/EPINEPHR/TETRACAINE 5 ML BOTTLE TOPICAL ONE (20:50)
[2021-06-17] MEDS ORDERED: HYDROcodone/APAP 7.5-325MG 1 EACH TAB PO ONE (20:51)
[2021-06-17] MEDS ORDERED: BACITRACIN OINT 1 EACH PACKET TOPICAL STA (21:37)
--- NOTE | 2021-06-17 22:10 | ED ---
Skin/Abscess/FB HPI - General Chief complaint: Skin/Abscess/Foreign Body Stated complaint: Skin Abrasion Time Seen by Provider: 06/17/21 19:40 Source: patient, EMS Mode of arrival: EMS Limitations: physical limitation - History of Present Illness Initial comments: 81 year-old female patient presents to the emergency department for evaluation of wound to the left groin. She is receiving rehab at [facility] on the [place], an aid was cleaning her up after a bowel movement and accidentally caused an injury to the left groin. Patient states that the area is sore. She states last tetanus was within 5 years. She denies any other injuries or concerns. - Related Data Home Medications Medication Instructions Recorded Confirmed Colon Probiotic 1 tab PO DAILY 10/18/20 06/03/21 Levothyroxine Sodium [Synthroid] 125 mcg PO DAILY 10/18/20 06/03/21 Simvastatin 40 mg PO HS 10/18/20 06/03/21 amLODIPine [Norvasc] 10 mg PO DAILY 10/18/20 06/03/21 Albuterol Sulfate [Albuterol 2 puff PO RT-Q6H PRN 06/03/21 06/03/21 Sulfate Hfa] Clotrimazole/Betamethasone Dip 1 applic TOPICAL BID 06/03/21 06/03/21 [Lotrisone Cream] Elderberry Fruit and Flower [Black 1 cap PO BID 06/03/21 06/03/21 Elderberry 575 mg Cap] Sertraline [Zoloft] 50 mg PO HS 06/03/21 06/03/21 Spironolactone 25 mg PO DAILY 06/03/21 06/03/21 cloNIDine HCL [Catapres] 0.3 mg PO BID 06/03/21 06/03/21 Previous Rx's Medication Instructions Recorded Mirtazapine [Remeron] 15 mg PO HS #30 tab 10/22/20 carvediloL [Coreg*] 12.5 mg PO BID-W/MEALS #60 tab 10/22/20 Budesonide-Formot 160-4.5 Mcg 2 puff INHALATION RT-BID #1 inh 06/05/21 [Symbicort 160-4.5 Mcg Inhaler] Cefuroxime Axetil [Ceftin] 500 mg PO BID 3 Days #6 tab 06/05/21 Benzocaine/Menthol Lozeng [Cepacol 1 each MUCOUS MEM Q4HR PRN lozenge 06/11/21 lozenge] Docusate [Colace] 100 mg PO BID cap 06/11/21 Famotidine [Pepcid] 20 mg PO DAILY #30 tab 06/11/21 Furosemide [Lasix] 40 mg PO DAILY #30 tab 06/11/21 HYDROcodone/APAP 7.5-325MG [[place] 1 tab PO TID PRN #6 tab 06/11/21 7.5-325] hydrALAZINE HCL [Apresoline] 75 mg PO TID #90 tab 06/11/21 Allergies Allergy/AdvReac Type Severity Reaction Status Date / Time adhesive Allergy SKIN Verified 06/17/21 19:47 REDDENS & BLISTERS- PAPER TAPE OKAY azithromycin [From Zithromax] Allergy Nausea & Verified 06/17/21 19:47 Vomiting meperidine HCl [From Demerol] Allergy Nausea & Verified 06/17/21 19:47 Vomiting morphine Allergy Nausea & Verified 06/17/21 19:47 Vomiting Sulfa (Sulfonamide Allergy Nausea & Verified 06/17/21 19:47 Antibiotics) Vomiting aspirin AdvReac STOMACH Verified 06/17/21 19:47 HERRERA anesthesia Allergy facial/arms/hands Uncoded 06/17/21 19:47 swelling,skin"turns beet red", nausea DISSOLVING SUTURES Allergy INFECTION Uncoded 06/17/21 19:47 Review of Systems ROS Statement: Those systems with pertinent positive or pertinent negative responses have been documented in the HPI. ROS Other: All systems not noted in ROS Statement are negative. Past Medical History Past Medical History: Asthma, Cancer, Heart Failure, COPD, GERD/Reflux, Hyperlipidemia, Hypertension, Osteoarthritis (OA), Pneumonia, Pulmonary Embolus (PE), Rheumatoid Arthritis (RA), Sleep Apnea/CPAP/BIPAP, Thyroid Disorder Additional Past Medical History / Comment(s): COPD/asthma, chronic cough, hypothyroidism, history of basal cell carcinoma of the skin resected, history of melanoma of the skin involving the back, resected, history of diverticulosis/diverticulitis, history of fibrocystic disease, obstructive sleep apnea can sleep with the CPAP, varicose veins in lower extremities, hypothyroidism History of Any Multi-Drug Resistant Organisms: None Reported Past Surgical History: Bladder Surgery, Bowel Resection, Cholecystectomy, Heart Catheterization, Hernia Repair, Hysterectomy, Joint Replacement, Orthopedic Surgery Additional Past Surgical History / Comment(s): LEFT KNEE REPLACED, PARTIAL THYROIDECTOMY,HIATAL HERNIA REPAIR 07/2013, ABDOMINAL HERNIA REPAIR,MULTIPLE SKIN LESIONS-PT STATED HAS HAS BASAL,SQUAMOUS AND MELANOMA SKIN CA ( NECK,RT UPPER & LOWER THIGH,LT ARM,RT ARM, face, back-melanoma)SKIN GRAFTS TO VINOD.LEGS- LT EAR-LT MIDDLE FINGER,ACHILLES TENDON surgery. RT OVARY 1 TUBE REMOVED, SIGMOID RESECTION D/T BOWEL OBSTRUCTION,RT LITLE FINGER AMP, Past Anesthesia/Blood Transfusion Reactions: Previous Problems w/ Anesthesia, Motion Sickness, Postoperative Nausea & Vomiting (PONV) Additional Past Anesthesia/Blood Transfusion Reaction / Comment(s): STATES "HAS HAD SWELLING TO FACE,HANDS,ARMS AND SKIN TURNS "BEET RED"WITH ANESTHESIA-with IV sedation. states no problems with last surgery at [facility] 01/2017-anesthesia records on chart Past Psychological History: Anxiety Smoking Status: Former smoker Past Alcohol Use History: None Reported Past Drug Use History: None Reported - Past Family History Mother Family Medical History: Diabetes Mellitus Additional Family Medical History / Comment(s): HEART PROBLEMS Sister(s) Family Medical History: Diabetes Mellitus, Myocardial Infarction ([place]) Additional Family Medical History / Comment(s): EMPHYSEMA Father Family Medical History: Cancer Additional Family Medical History / Comment(s): LUNG CA. General Exam Limitations: physical limitation General appearance: alert, in no apparent distress Respiratory exam: Present: normal lung sounds bilaterally. Absent: respiratory distress, wheezes, rales, rhonchi, stridor Cardiovascular Exam: Present: regular rate, normal rhythm, normal heart sounds. Absent: systolic murmur, diastolic murmur, rubs, gallop, clicks External exam: Present: other (Left groin skin tear about 4cm in length, mild active bleeding. ) Neurological exam: Present: alert, oriented X3, CN II-XII intact Psychiatric exam: Present: normal affect, normal mood Skin exam: Present: warm, dry, intact, normal color. Absent: rash Course Vital Signs 06/17/21 19:44 Temperature 99.0 F Pulse Rate 69 Respiratory 18 Rate Blood Pressure 174/69 O2 Sat by Pulse 96 Oximetry Medical Decision Making - Medical Decision Making 81-year-old female patient presents to the emergency department today for evaluation of skin tear to the left groin. Physical examination did reveal a tear approximately 4 cm in length. There is mild active bleeding. Wound was cleansed. Bacitracin applied. A silver dressing applied. Patient tolerated this well. She'll be discharged with instructions for wound care. She is to be started on Cipro for UTI tonight so this should work for prophylaxis. Return parameters were discussed in detail. She verbalizes understanding and agrees with this plan. My attending is Dr. Abraham. Disposition Clinical Impression: Skin tear, Wound of left groin Disposition: HOME SELF-CARE Condition: Good Instructions (If sedation given, give patient instructions): Skin Tear (ED) Additional Instructions: Cleanse wound daily. Apply new dressing daily. Return for any new, worsening, or concerning symptoms. Is patient prescribed a controlled substance at d/c from ED?: No Referrals: Compa Mckenna MD [Primary Care Provider] - 1-2 days Time of Disposition: 22:10
[2021-06-17 22:32] VITALS: BP 162/68; PULSE 68
== END 2021-06-17 22:54 | disposition home or self-care (01) ==
LOC: SUPCPDRO 19:33 → EC 19:33
DX: S30.92XA Unspecified superficial injury of abdominal wall, initial encounter (principal); J45.909 Unspecified asthma, uncomplicated; E78.5 Hyperlipidemia, unspecified; I10 Essential (primary) hypertension; M19.90 Unspecified osteoarthritis, unspecified site; I50.9 Heart failure, unspecified; M06.9 Rheumatoid arthritis, unspecified; E03.9 Hypothyroidism, unspecified; Z79.51 Long term (current) use of inhaled steroids; Z79.899 Other long term (current) drug therapy
CPT/HCPCS: 99283

== ENCOUNTER 2021-06-29 12:44 | Inpatient (IN) | payer MEDICARE ==
[2021-06-29] MEDS ORDERED: ALBUTEROL NEBULIZED 2.5 MG/3 ML INHALATION STA (12:53)
[2021-06-29] MEDS ORDERED: methylPREDNISolone SOD SUCCI 125 MG/2 ML VIAL IV STA (12:53)
[2021-06-29] MEDS ORDERED: IPRATROPIUM 0.5 MG/2.5 ML NEBU INHALATION STA (12:53)
--- NOTE | 2021-06-29 13:04 | ED ---
General Adult HPI - General Stated complaint: SOB Time Seen by Provider: 06/29/21 12:45 Source: patient, RN notes reviewed, old records reviewed - History of Present Illness Initial comments: This is an 81-year-old female who presents emergency Department with a past medical history significant for COPD. Patient comes in today stating during the night she started having difficulty breathing and Aggressively worse this morning. Patient denies any fever chills per patient states she has been coughing quite a bit. Patient denies any chest pain or palpitations. Patient denies lightheadedness or dizziness. Patient denies any increased swelling to legs but she states she has chronic swelling bilaterally to the point where she has blisters on both legs and she has full flex wrapped and they were wrapped yesterday. Patient denies any abdominal pain patient denies nausea vomiting diarrhea. Patient states she did get the COVID vaccine. Patient is on 3 L of O2 [id number]. - Related Data Home Medications Medication Instructions Recorded Confirmed Levothyroxine Sodium [Synthroid] 125 mcg PO DAILY@0600 10/18/20 06/29/21 amLODIPine [Norvasc] 10 mg PO DAILY@0900 10/18/20 06/29/21 Albuterol Sulfate [Albuterol 2 puff PO RT-Q6H PRN 06/03/21 06/29/21 Sulfate Hfa] Sertraline [Zoloft] 50 mg PO HS@209906/03/21 06/29/21 cloNIDine HCL [Catapres] 0.3 mg PO BID@0900,209906/03/21 06/29/21 ALPRAZolam [Xanax] 0.5 mg PO DAILY PRN 06/29/21 06/29/21 Acetaminophen [Tylenol 8 Hour] 650 mg PO Q6H PRN 06/29/21 06/29/21 Atorvastatin [Lipitor] 20 mg PO HS@209906/29/21 06/29/21 Benzocaine/Menthol Lozeng [Cepacol 1 lozenge MUCOUS MEM Q4HR PRN 06/29/21 06/29/21 lozenge] Budesonide-Formot 160-4.5 Mcg 2 puff INHALATION RT-BID@0900,209906/29/21 06/29/21 [Symbicort 160-4.5 Mcg Inhaler] Docusate [Colace] 100 mg PO BID@0900,2100 06/29/21 06/29/21 Famotidine [Pepcid] 20 mg PO DAILY@0600 06/29/21 06/29/21 Furosemide [Lasix] 40 mg PO DAILY@0600 06/29/21 06/29/21 HYDROcodone/APAP 7.5-325MG [[place] 1 tab PO QID 06/29/21 06/29/21 7.5-325] Ipratropium-Albuterol Nebulize 3 ml INHALATION RT-Q4H PRN 06/29/21 06/29/21 [Duoneb 0.5 mg-3 mg/3 ml Soln] Magnesium Hydroxide [Milk of 2,400 mg PO Q72H PRN 06/29/21 06/29/21 Magnesia] Mirtazapine [Remeron] 15 mg PO HS@209906/29/21 06/29/21 Spironolactone 50 mg PO DAILY@0900 06/29/21 06/29/21 carvediloL [Coreg*] 12.5 mg PO BID@0900,209906/29/21 06/29/21 diphenhydrAMINE [Benadryl] 25 mg PO BID@0900,209906/29/21 06/29/21 hydrALAZINE HCL [Apresoline] 75 mg PO TID@0600,1400,2200 06/29/21 06/29/21 Allergies Allergy/AdvReac Type Severity Reaction Status Date / Time adhesive Allergy SKIN Verified 06/29/21 13:08 REDDENS & BLISTERS- PAPER TAPE OKAY azithromycin [From Zithromax] Allergy Nausea & Verified 06/29/21 13:08 Vomiting meperidine HCl [From Demerol] Allergy Nausea & Verified 06/29/21 13:08 Vomiting morphine Allergy Nausea & Verified 06/29/21 13:08 Vomiting Sulfa (Sulfonamide Allergy Nausea & Verified 06/29/21 13:08 Antibiotics) Vomiting aspirin AdvReac STOMACH Verified 06/29/21 13:08 HERRERA anesthesia Allergy facial/arms/hands Uncoded 06/17/21 19:47 swelling,skin"turns beet red", nausea DISSOLVING SUTURES Allergy INFECTION Uncoded 06/17/21 19:47 Review of Systems ROS Statement: Those systems with pertinent positive or pertinent negative responses have been documented in the HPI. ROS Other: All systems not noted in ROS Statement are negative. Past Medical History Past Medical History: Asthma, Cancer, Heart Failure, COPD, GERD/Reflux, Hyperlipidemia, Hypertension, Osteoarthritis (OA), Pneumonia, Pulmonary Embolus (PE), Rheumatoid Arthritis (RA), Sleep Apnea/CPAP/BIPAP, Thyroid Disorder Additional Past Medical History / Comment(s): COPD/asthma, chronic cough, hypothyroidism, history of basal cell carcinoma of the skin resected, history of melanoma of the skin involving the back, resected, history of d iverticulosis/diverticulitis, history of fibrocystic disease, obstructive sleep apnea can sleep with the CPAP, varicose veins in lower extremities, hypothyroidism History of Any Multi-Drug Resistant Organisms: None Reported Past Surgical History: Bladder Surgery, Bowel Resection, Cholecystectomy, Heart Catheterization, Hernia Repair, Hysterectomy, Joint Replacement, Orthopedic Surgery Additional Past Surgical History / Comment(s): LEFT KNEE REPLACED, PARTIAL THYROIDECTOMY,HIATAL HERNIA REPAIR 07/2013, ABDOMINAL HERNIA REPAIR,MULTIPLE SKIN LESIONS-PT STATED HAS HAS BASAL,SQUAMOUS AND MELANOMA SKIN CA ( NECK,RT UPPER & LOWER THIGH,LT ARM,RT ARM, face, back-melanoma)SKIN GRAFTS TO VINOD.LEGS- LT EAR-LT MIDDLE FINGER,ACHILLES TENDON surgery. RT OVARY 1 TUBE REMOVED, SIGMOID RESECTION D/T BOWEL OBSTRUCTION,RT LITLE FINGER AMP, Past Anesthesia/Blood Transfusion Reactions: Previous Problems w/ Anesthesia, Motion Sickness, Postoperative Nausea & Vomiting (PONV) Additional Past Anesthesia/Blood Transfusion Reaction / Comment(s): STATES "HAS HAD SWELLING TO FACE,HANDS,ARMS AND SKIN TURNS "BEET RED"WITH ANESTHESIA-with IV sedation. states no problems with last surgery at [facility] 01/2017-anesthesia records on chart Past Psychological History: Anxiety Smoking Status: Former smoker Past Alcohol Use History: None Reported Past Drug Use History: None Reported - Past Family History Mother Family Medical History: Diabetes Mellitus Additional Family Medical History / Comment(s): HEART PROBLEMS Sister(s) Family Medical History: Diabetes Mellitus, Myocardial Infarction ([place]) Additional Family Medical History / Comment(s): EMPHYSEMA Father Family Medical History: Cancer Additional Family Medical History / Comment(s): LUNG CA. General Exam - General Exam Comments Initial Comments: GENERAL: Patient is well-developed and well-nourished. Patient is nontoxic and well- hydrated and is in mild distress. ENT: Neck is soft and supple. No significant lymphadenopathy is noted. Oropharynx is clear. Moist mucous membranes. Neck has full range of motion without eliciting any pain. EYES: The sclera were anicteric and conjunctiva were pink and moist. Extraocular movements were intact and pupils were equal round and reactive to light. Eyelids were unremarkable. PULMONARY: She has expiratory wheezing CARDIOVASCULAR: There is a regular rate and rhythm without any murmurs gallops or rubs. ABDOMEN: Soft and nontender with normal bowel sounds. No palpable organomegaly was noted. There is no palpable pulsatile mass. SKIN: Skin is clear with no lesions or rashes and otherwise unremarkable. NEUROLOGIC: There is alert and oriented 3 cranial nerves II through XII are grossly intact MUSCULOSKELETAL: Normal extremities with adequate strength and full range of motion. No lower extremity swelling or edema. No calf tenderness. LYMPHATICS: No significant lymphadenopathy is noted PSYCHIATRIC: Normal psychiatric evaluation. Course Vital Signs 06/29/21 06/29/21 06/29/21 13:06 13:09 13:28 Temperature 98.8 F Pulse Rate 55 L 53 L Respiratory 22 24 20 Rate Blood Pressure 145/65 O2 Sat by Pulse 99 Oximetry 06/29/21 06/29/21 13:55 14:28 Temperature Pulse Rate 55 L 56 L Respiratory 18 Rate Blood Pressure 121/51 O2 Sat by Pulse 98 Oximetry Medical Decision Making - Medical Decision Making EKG shows sinus bradycardia at a rate of 54 bpm VT interval 274 QRS is 90 QT interval 466 QTC is 441. Patient's EKG shows no ST segment elevation or depression patient does have Q waves in leads 3 and aVF Patient received a breathing treatment emergency Department with steroids and she was doing better however she still had wheezing diffusely on exam. I spoke with the [facility] agreed to admit the patient admitted the patient I wrote admitting orders. - Lab Data Result diagrams: 06/29/21 13:06/29/21 13:09 Lab Results 06/29/21 06/29/21 06/29/21 Range/Units 13: 13: 13:09 WBC 8.7 (3.8-10.6) k/uL RBC 3.36 L (3.80-5.40) m/uL Hgb 10.5 L (11.4-16.0) gm/dL Hct 32.4 L (34.0-46.0) % MCV 96.7 (80.0-100.0) fL MCH 31.4 (25.0-35.0) pg MCHC 32.5 (31.0-37.0) g/dL RDW 14.4 (11.5-15.5) % Plt Count 254 (150-450) k/uL MPV 7.4 Neutrophils % 75 % Lymphocytes % 16 % Monocytes % 4 % Eosinophils % 3 % Basophils % 0 % Neutrophils # 6.5 (1.3-7.7) k/uL Lymphocytes # 1.4 (1.0-4.8) k/uL Monocytes # 0.4 (0-1.0) k/uL Eosinophils # 0.2 (0-0.7) k/uL Basophils # 0.0 (0-0.2) k/uL PT 10.1 (9.0-12.0) sec INR 0.9 (<1.2) APTT 23.2 (22.0-30.0) sec Sodium 137 (137-145) mmol/L Potassium 4.2 (3.5-5.1) mmol/L Chloride 102 (98-107) mmol/L Carbon Dioxide 29 (22-30) mmol/L Anion Gap 6 mmol/L BUN 11 (7-17) mg/dL Creatinine 0.69 (0.52-1.04) mg/dL Est GFR (CKD-EPI)AfAm >90 (>60 ml/min/1.73 sqM) Est GFR (CKD-EPI)NonAf 81 (>60 ml/min/1.73 sqM) Glucose 127 H (74-99) mg/dL Plasma Lactic Acid Tyron (0.7-2.0) mmol/L Calcium 8.5 (8.4-10.2) mg/dL Magnesium 1.9 (1.6-2.3) mg/dL Total Bilirubin 0.3 (0.2-1.3) mg/dL AST 18 (14-36) U/L ALT 8 (4-34) U/L Alkaline Phosphatase 68 (38-126) U/L Troponin I (0.000-0.034) ng/mL NT-Pro-B Natriuret Pep pg/mL Total Protein 5.2 L (6.3-8.2) g/dL Albumin 2.8 L (3.5-5.0) g/dL 06/29/21 06/29/21 06/29/21 Range/Units 13:09 13:09 13:09 WBC (3.8-10.6) k/uL RBC (3.80-5.40) m/uL Hgb (11.4-16.0) gm/dL Hct (34.0-46.0) % MCV (80.0-100.0) fL MCH (25.0-35.0) pg MCHC (31.0-37.0) g/dL RDW (11.5-15.5) % Plt Count (150-450) k/uL MPV Neutrophils % % Lymphocytes % % Monocytes % % Eosinophils % % Basophils % % Neutrophils # (1.3-7.7) k/uL Lymphocytes # (1.0-4.8) k/uL Monocytes # (0-1.0) k/uL Eosinophils # (0-0.7) k/uL Basophils # (0-0.2) k/uL PT (9.0-12.0) sec INR (<1.2) APTT (22.0-30.0) sec Sodium (137-145) mmol/L Potassium (3.5-5.1) mmol/L Chloride (98-107) mmol/L Carbon Dioxide (22-30) mmol/L Anion Gap mmol/L BUN (7-17) mg/dL Creatinine (0.52-1.04) mg/dL Est GFR (CKD-EPI)AfAm (>60 ml/min/1.73 sqM) Est GFR (CKD-EPI)NonAf (>60 ml/min/1.73 sqM) Glucose (74-99) mg/dL Plasma Lactic Acid Tyron 1.3 (0.7-2.0) mmol/L Calcium (8.4-10.2) mg/dL Magnesium (1.6-2.3) mg/dL Total Bilirubin (0.2-1.3) mg/dL AST (14-36) U/L ALT (4-34) U/L Alkaline Phosphatase (38-126) U/L Troponin I <0.012 (0.000-0.034) ng/mL NT-Pro-B Natriuret Pep 801 pg/mL Total Protein (6.3-8.2) g/dL Albumin (3.5-5.0) g/dL Disposition Clinical Impression: Acute exacerbation of chronic obstructive pulmonary disease Disposition: ADMITTED IP TO THIS HOSP Referrals: Ying Pearson MD [Primary Care Provider] - 1-2 days Time of Disposition: 14:53
[2021-06-29 13:40] LABS: Basophils % (A) 0 %; Eosinophils # (A) 0.2 k/uL (0-0.7); Eosinophils % (A) 3 %; HCT 32.4 % (34.0-46.0); HGB 10.5 gm/dL (11.4-16.0); Lymphocytes # (A) 1.4 k/uL (1.0-4.8); Lymphocytes % (A) 16 %; MCH 31.4 pg (25.0-35.0); MCHC 32.5 g/dL (31.0-37.0); MCV 96.7 fL (80.0-100.0); Mean Platelet Volume 7.4; Monocytes # (A) 0.4 k/uL (0-1.0); Monocytes % (A) 4 %; Neutrophils # (A) 6.5 k/uL (1.3-7.7); Neutrophils % (A) 75 %; Platelet Count 254 k/uL (150-450); RBC 3.36 m/uL (3.80-5.40); RDW 14.4 % (11.5-15.5); WBC 8.7 k/uL (3.8-10.6)
[2021-06-29 13:50] LABS: INR 0.9 (<1.2); Partial Thromboplastin Time 23.2 sec (22.0-30.0); Prothrombin Time 10.1 sec (9.0-12.0)
[2021-06-29 13:56] LABS: ALT 8 U/L (4-34); AST 18 U/L (14-36); African American GFR (CKD) >90 (>60 ml/min/1.73 sqM); Albumin 2.8 g/dL (3.5-5.0); Alkaline Phosphatase 68 U/L (38-126); Anion Gap 6 mmol/L; Blood Urea Nitrogen 11 mg/dL (7-17); Calcium 8.5 mg/dL (8.4-10.2); Carbon Dioxide 29 mmol/L (22-30); Chloride 102 mmol/L (98-107); Glucose 127 mg/dL (74-99); Magnesium 1.9 mg/dL (1.6-2.3); Non-African American GFR(CKD) 81 (>60 ml/min/1.73 sqM); Potassium 4.2 mmol/L (3.5-5.1); Sodium 137 mmol/L (137-145); Total Bilirubin 0.3 mg/dL (0.2-1.3); Total Protein 5.2 g/dL (6.3-8.2)
--- NOTE | 2021-06-29 14:14 | XR ---
EXAMINATION TYPE: XR chest 2V DATE OF EXAM: 06/29/2021 COMPARISON: Chest x-ray June 07, 2021 HISTORY: Dyspnea. TECHNIQUE: Frontal and lateral views of the chest are obtained. FINDINGS: There is persistent cardiomegaly with new [id number] central vascular congestion and small bilateral pleural effusions. The osseous structures remain demineralized. IMPRESSION: CHF exacerbation suspected. Correlate clinically.
[2021-06-29] MEDS ORDERED: FUROSEMIDE 10 MG/ML 4 ML VIAL IV STA (14:32)
[2021-06-29] MEDS ORDERED: FUROSEMIDE 10 MG/ML 4 ML VIAL IV SCH (16:00)
[2021-06-29] MEDS ORDERED: ALPRAZolam 0.5 MG TAB PO PRN (16:11)
[2021-06-29] MEDS ORDERED: ACETAMINOPHEN TAB 325 MG TAB PO PRN (16:11)
[2021-06-29] MEDS ORDERED: BENZOCAINE/MENTHOL LOZENG 1 EACH LOZENGE MUCOUS MEM PRN (16:11)
[2021-06-29] MEDS: HYDROcodone/APAP 7.5-325MG 1 EACH TAB PO SCH ×2 (19:25→22:27)
[2021-06-29] MEDS: methylPREDNISolone SOD SUCCI 125 MG/2 ML VIAL IV SCH (19:27)
[2021-06-29] MEDS: IPRATROPIUM-ALBUTEROL 3 ML NEB INHALATION PRN (20:18)
[2021-06-29] MEDS: SYMBICORT 160-4.5 MCG INHALER INHALATION SCH (20:19)
[2021-06-29] MEDS: carvediloL 12.5 MG TAB PO SCH (22:38)
[2021-06-29] MEDS: DOCUSATE 100 MG CAP PO SCH (22:38)
[2021-06-29] MEDS: MIRTAZAPINE 15 MG TAB PO SCH (22:38)
[2021-06-29] MEDS: ATORVASTATIN 20 MG TAB PO SCH (22:38)
--- NOTE | 2021-06-29 23:31 | P.HPIM ---
History of Present Illness H&P Date: 06/29/21 Chief Complaint: Shortness of breath Patient is a 81-year-old female with a known history of hypertension, hyperlipidemia, asthma/COPD on home oxygen at 3 L 24 x 7, history of PE, parotiditis, obstructive sleep apnea on CPAP, varicose veins in the bilateral lower extremities, hypothyroidism and other multiple medical problems and recent history of bowel obstruction and Enterococcus UTI, was sent to extended care facility presented to ER with complaints of shortness of breath worsening since last night. Patient breathing status got worse this morning and was sent to ER. Otherwise patient denied any fever or chills. Does have cough with or sputum production. Patient does have chronic bilateral leg swelling and venous stasis and varicose veins. Patient is also having blisters on both legs and Lenard wrap. Denied any complaints of nausea vomiting or abdominal pain or diarrhea. No dysuria or hematuria. Chest x-ray showed CHF exacerbation suspected. EKG showed sinus bradycardia Patient had 2D echocardiogram done in October 2020 showed ejection fraction 50 to 55%. No significant valvular abnormalities were noted. Right ventricular systolic pressure is less than 35 on his disease. Laboratory showed WBC 8.7 hemoglobin 10.5 and platelets 254 Sodium 137 potassium 4.2 chloride 102 bicarb is 29 BUN 11 and creatinine 0.69 and blood sugar is 127 magnesium 1.9 troponin less than 0.012 and proBNP 801 and coronavirus PCR not detected. Patient is vaccinated against COVID-19. Review of Systems Constitutional: Patient denies any fever or chills . No generalized weakness or weight loss. Abdomen: Patient denied nausea vomiting and diarrhea and abdominal pain. Cardiovascular: Patient denies any chest pain or short of breath no palpi tations. Respiratory: Patient does have cough without sputum production and shortness of breath. Bilateral chronic leg swelling. Neurologic: Patient denied any numbness or tingling headache. Musculoskeletal: Patient denies any complaints of joint swelling or deformity. Skin: Negative Psychiatric: Negative Endocrine: No heat or cold intolerance. No recent weight gain. Genitourinary: No dysuria or hematuria. All other 14 point ROS negative except the above Past Medical History Past Medical History: Asthma, Cancer, Heart Failure, COPD, GERD/Reflux, Hyperl ipidemia, Hypertension, Osteoarthritis (OA), Pneumonia, Pulmonary Embolus (PE), Rheumatoid Arthritis (RA), Sleep Apnea/CPAP/BIPAP, Thyroid Disorder Additional Past Medical History / Comment(s): COPD/asthma, chronic cough, hypothyroidism, history of basal cell carcinoma of the skin resected, history of melanoma of the skin involving the back, resected, history of diverticu losis/diverticulitis, history of fibrocystic disease, obstructive sleep apnea can sleep with the CPAP, varicose veins in lower extremities, hypothyroidism History of Any Multi-Drug Resistant Organisms: None Reported Past Surgical History: Bladder Surgery, Bowel Resection, Cholecystectomy, Heart Catheterization, Hernia Repair, Hysterectomy, Joint Replacement, Orthopedic Surgery Additional Past Surgical History / Comment(s): LEFT KNEE REPLACED, PARTIAL THYROIDECTOMY,HIATAL HERNIA REPAIR 07/2013, ABDOMINAL HERNIA REPAIR,MULTIPLE SKIN LESIONS-PT STATED HAS HAS BASAL,SQUAMOUS AND MELANOMA SKIN CA ( NECK,RT UPPER & LOWER THIGH,LT ARM,RT ARM, face, back-melanoma)SKIN GRAFTS TO VINOD.LEGS- LT EAR-LT MIDDLE FINGER,ACHILLES TENDON surgery. RT OVARY 1 TUBE REMOVED, SIGMOID RESECTION D/T BOWEL OBSTRUCTION,RT LITLE FINGER AMP, Past Anesthesia/Blood Transfusion Reactions: Previous Problems w/ Anesthesia, Motion Sickness, Postoperative Nausea & Vomiting (PONV) Additional Past Anesthesia/Blood Transfusion Reaction / Comment(s): STATES "HAS HAD SWELLING TO FACE,HANDS,ARMS AND SKIN TURNS "BEET RED"WITH ANESTHESIA-with IV sedation. states no problems with last surgery at [facility] 01/2017-anesthesia records on chart Past Psychological History: Anxiety Smoking Status: Former smoker Past Alcohol Use History: None Reported Past Drug Use History: None Reported - Past Family History Mother Family Medical History: Diabetes Mellitus Additional Family Medical History / Comment(s): HEART PROBLEMS Sister(s) Family Medical History: Diabetes Mellitus, Myocardial Infarction ([place]) Additional Family Medical History / Comment(s): EMPHYSEMA Father Family Medical History: Cancer Additional Family Medical History / Comment(s): LUNG CA. Medications and Allergies Home Medications Medication Instructions Recorded Confirmed Type Levothyroxine Sodium [Synthroid] 125 mcg PO DAILY@0600 10/18/20 06/29/21 History amLODIPine [Norvasc] 10 mg PO DAILY@0900 10/18/20 06/29/21 History Albuterol Sulfate [Albuterol 2 puff PO RT-Q6H PRN 06/03/21 06/29/21 History Sulfate Hfa] Sertraline [Zoloft] 50 mg PO HS@2100 06/03/21 11/12/21 History cloNIDine HCL [Catapres] 0.3 mg PO BID@0900,209906/03/21 06/29/21 History ALPRAZolam [Xanax] 0.5 mg PO DAILY PRN 06/29/21 06/29/21 History Acetaminophen [Tylenol 8 Hour] 650 mg PO Q6H PRN 06/29/21 06/29/21 History Atorvastatin [Lipitor] 20 mg PO HS@209906/29/21 06/29/21 History Benzocaine/Menthol Lozeng [Cepacol 1 lozenge MUCOUS MEM Q4HR PRN 06/29/21 06/29/21 History lozenge] Budesonide-Formot 160-4.5 Mcg 2 puff INHALATION RT-BID@899,209906/29/21 06/29/21 History [Symbicort 160-4.5 Mcg Inhaler] Docusate [Colace] 100 mg PO BID@00,209906/29/21 06/29/21 History Famotidine [Pepcid] 20 mg PO DAILY@0606/29/21 06/29/21 History Furosemide [Lasix] 40 mg PO DAILY@0606/29/21 06/29/21 History HYDROcodone/APAP 7.5-325MG [[place] 1 tab PO QID 06/29/21 06/29/21 History 7.5-325] Ipratropium-Albuterol Nebulize 3 ml INHALATION RT-Q4H PRN 06/29/21 06/29/21 History [Duoneb 0.5 mg-3 mg/3 ml Soln] Magnesium Hydroxide [Milk of 2,400 mg PO Q72H PRN 06/29/21 06/29/21 History Magnesia] Mirtazapine [Remeron] 15 mg PO HS@209906/29/21 06/29/21 History Spironolactone 50 mg PO DAILY@0906/29/21 06/29/21 History carvediloL [Coreg*] 12.5 mg PO BID@0900,209906/29/21 06/29/21 History diphenhydrAMINE [Benadryl] 25 mg PO BID@0900,209906/29/21 06/29/21 History hydrALAZINE HCL [Apresoline] 75 mg PO TID@0600,1400,2200 06/29/21 06/29/21 History Allergies Allergy/AdvReac Type Severity Reaction Status Date / Time adhesive Allergy SKIN Verified 06/29/21 13:08 REDDENS & BLISTERS- PAPER TAPE OKAY azithromycin [From Zithromax] Allergy Nausea & Verified 06/29/21 13:08 Vomiting meperidine HCl [From Demerol] Allergy Nausea & Verified 06/29/21 13:08 Vomiting morphine Allergy Nausea & Verified 06/29/21 13:08 Vomiting Sulfa (Sulfonamide Allergy Nausea & Verified 06/29/21 13:08 Antibiotics) Vomiting tree and shrub pollen Allergy Cough Verified 06/29/21 23:54 aspirin AdvReac STOMACH Verified 06/29/21 13:08 HERRERA anesthesia Allergy facial/arms/hands Uncoded 06/17/21 19:47 swelling,skin"turns beet red", nausea DISSOLVING SUTURES Allergy INFECTION Uncoded 06/17/21 19:47 Physical Exam Vitals: Vital Signs Temp Pulse Resp BP Pulse Ox 06/29/21 14:28 56 L 18 121/51 98 06/29/21 13:55 55 L 06/29/21 13:28 53 L 20 06/29/21 13:09 24 06/29/21 13:06 98.8 F 55 L 22 145/65 99 Intake and Output 06/29/21 06/29/21 06/29/21 06:59 14:59 22:59 Other: Weight 108.862 kg PHYSICAL EXAMINATION: Patient is lying in the bed comfortably, no acute distress, awake alert and oriented.. HEENT: Normocephalic. Neck is supple. Pupils reactive. Nostrils clear. Oral cavity is moist. Neck reveals no JVD, carotid bruits, or thyromegaly. CHEST EXAMINATION: Trachea is central. Symmetrical expansion. Bilateral diffuse wheezing and diminished air entry. Nonlabored breathing.. CARDIAC: Normal S1, S2 with no gallops. No murmurs ABDOMEN: Soft. Bowel sounds normal. No organomegaly. No abdominal bruits. Extremities: 3+ pedal edema. No clubbing or cyanosis Neurologically awake, alert, oriented x3 with well-coordinated movements. No focal deficits noted Skin: No rash or skin lesions. Psychiatric: Cooperative. Nonsuicidal, anxious Musculoskeletal: No joint swelling or deformity. Normal range of motion. Results CBC & Chem 7: 06/30/21 06:21 06/30/21 06:21 Labs: Abnormal Lab Results - Last 24 Hours (Table) 06/29/21 06/29/21 Range/Units 13:09 13:09 RBC 3.36 L (3.80-5.40) m/uL Hgb 10.5 L (11.4-16.0) gm/dL Hct 32.4 L (34.0-46.0) % Glucose 127 H (74-99) mg/dL Total Protein 5.2 L (6.3-8.2) g/dL Albumin 2.8 L (3.5-5.0) g/dL Thrombosis Risk Factor Assmnt - DVT/VTE Prophylaxis DVT/VTE Prophylaxis: Pharmacologic Prophylaxis ordered Assessment and Plan Assessment: Shortness of breath secondary to acute COPD exacerbation Acute on chronic CHF with diastolic dysfunction. Chronic hypoxic respiratory failure on oxygen at 3 L via nasal cannula. Recent admission with bowel obstruction and discharged to ECF. Hypertension Hyperlipidemia GERD History of basal cell skin cancer status post resection Rheumatoid arthritis Obstructive sleep apnea on CPAP Obesity with BMI 37.6 Hypothyroidism History of diverticulosis Anxiety Chronic swelling of the bilateral lower extremities, venous stasis and varicose veins. Previous history of smoking DVT prophylaxis with heparin subcu Plan: Patient will be continued on oxygen supplementation and continue with IV steroids and Symbicort. Continue duo nebs. Patient was given a dose of IV Lasix. Continue with IV Lasix 40 mg twice daily. Monitor renal function closely. Repeat chest x-ray in the morning. Pulmonary will be consulted and follow-up closely. Prognosis guarded with multiple medical problems and comorbid conditions. Time with Patient: Greater than 30
[2021-06-29 23:45] LABS: Glucose,Whole Blood 220 mg/dL (75-99)
[2021-06-30] MEDS ORDERED: FUROSEMIDE 10 MG/ML 4 ML VIAL IV SCH
[2021-06-30] MEDS ORDERED: INSULIN ASPART (NovoLOG) 100 UNIT/ML VIAL SQ ONE (00:34)
[2021-06-30] MEDS: methylPREDNISolone SOD SUCCI 125 MG/2 ML VIAL IV SCH ×4 (01:14→17:39)
[2021-06-30] MEDS: HEPARIN SODIUM,PORCINE/PF 5,000 UNIT/0.5 ML SYRINGE SQ SCH ×3 (01:14→17:39)
[2021-06-30] MEDS: FAMOTIDINE 20 MG TAB PO SCH (05:46)
[2021-06-30] MEDS: LEVOTHYROXINE 125 MCG TAB PO SCH (06:15)
[2021-06-30 07:18] LABS: Glucose,Whole Blood 237 mg/dL (75-99)
[2021-06-30] MEDS: INSULIN ASPART (NovoLOG) 100 UNIT/ML VIAL SQ SCH ×4 (07:48→20:22)
[2021-06-30] MEDS: HYDROcodone/APAP 7.5-325MG 1 EACH TAB PO SCH ×5 (07:49→22:38)
[2021-06-30] MEDS: carvediloL 12.5 MG TAB PO SCH ×2 (07:49→20:22)
[2021-06-30] MEDS: DOCUSATE 100 MG CAP PO SCH ×2 (07:49→20:22)
[2021-06-30] MEDS: FUROSEMIDE 10 MG/ML 4 ML VIAL IV SCH ×2 (07:50→20:21)
[2021-06-30] MEDS: SYMBICORT 160-4.5 MCG INHALER INHALATION SCH ×2 (08:51→20:34)
[2021-06-30] MEDS: IPRATROPIUM-ALBUTEROL 3 ML NEB INHALATION PRN ×4 (08:51→20:33)
[2021-06-30] MEDS ORDERED: VANCOMYCIN IV PER PHARMACY 1 EACH MISC MISCELLANE SCH (09:15)
[2021-06-30] MEDS ORDERED: VANCOMYCIN 1,750 MG in SODIUM CHLORIDE 0.9% 500 ML 500 ML IVPB ONE (09:30)
[2021-06-30 13:53] LABS: Basophils # (A) 0.01 X 10*3/uL (0.00-0.10); Basophils % (A) 0.1 %; Eosinophils # (A) 0 X 10*3/uL (0.04-0.35); Eosinophils % (A) 0 %; HCT 37.8 % (37.2-46.3); HGB 11.4 g/dL (12.0-15.0); Lymphocytes # (A) 1.49 X 10*3/uL (0.90-5.00); Lymphocytes % (A) 13.1 %; MCH 29.4 pg (27.0-32.0); MCHC 30.2 g/dL (32.0-37.0); MCV 97.4 fL (80.0-97.0); Mean Platelet Volume 10.5 fL (9.5-12.2); Monocytes % (A) 0.9 %; Neutrophils # (A) 9.73 X 10*3/uL (1.80-7.70); Neutrophils % (A) 85.3 %; Platelet Count 246 X 10*3/uL (140-440); RBC 3.88 X 10*6/uL (4.10-5.20); RDW 14.2 % (11.5-14.5)
--- NOTE | 2021-06-30 14:20 | P.CNPUL ---
History of Present Illness Consult date: 06/30/21 Requesting physician: Victoria Khan Reason for consult: dyspnea Chief complaint: Shortness of breath, cough, congestion History of present illness: This a very pleasant 81-year-old female patient who follows with Dr. Pearson is her primary care provider. She has a history of chronic obstructive pulmonary disease/asthma, hyperlipidemia, hypertension, osteoarthritis, rheumatoid arthritis, pulmonary embolism, obstructive sleep apnea retained on CPAP, hypothyroidism, melanoma resected from her back, chronic diastolic congestive heart failure, chronic lower extremity edema with cellulitis and open wounds at times. Her last admission she had been residing at [facility]. Yesterday she developed increasing shortness of breath cough and congestion and was brought here to the emergency room. Chest x-ray revealed evidence of congestive heart failure with mild to moderate central vascular congestion and small bilateral effusions. Echocardiogram from earlier this year revealed preserved left ventricular systolic function with ejection fraction 50-55%. No significant valvular heart disease. EKG with sinus bradycardia. He can't 11.4. Hemoglobin 11.4. Sodium 137. Potassium 4.2. Creatinine 0.69. Glucose 237. Troponin negative times one. ProBNP 801. TSH 0.748. Currently virus not detected. She is seen today in consultation on the regular medical floor. She is currently sitting up in a chair at the bedside. Awake and alert in no acute distress. Maintaining O2 saturations in the 90s on 3 L/m per nasal cannula. She does have some lower extremity edema. Dressings dry and intact. Initial blood cultures revealing gram-positive cocci in clusters. She's been initiated on vancomycin. She's continued on IV Solu-Medrol, IV diuretics, Symbicort, DuoNeb inhalations. Review of Systems REVIEW OF SYSTEMS: CONSTITUTIONAL: Denies any recent significant weight loss or weight gain. EYES: Denies change in vision. EARS, NOSE, MOUTH, THROAT: Denies headaches, denies sore throat. CARDIOVASCULAR: Denies chest pain, palpitations or syncopal episodes. RESPIRATORY: Positive for shortness of breath, cough, congestion no hemoptysis. GASTROINTESTINAL: Denies change in appetite, denies abdominal pain GENITOURINARY: Denies hematuria, denies infections. MUSKULOSKELETAL: Denies pain, denies swelling. INTEGUMENTARY: Positive for redness, edema, losing of the lower extremities. NEUROLOGICAL: Denies recent memory loss, no recent seizure activity. PSYCHIATRIC: Denies anxiety, denies depression. HEMATOLOGIC/LYMPHATIC: Denies anemia, denies enlarged lymph nodes. s Past Medical History Past Medical History: Asthma, Cancer, Heart Failure, COPD, GERD/Reflux, Hyperlipidemia, Hypertension, Osteoarthritis (OA), Pneumonia, Pulmonary Embolus (PE), Rheumatoid Arthritis (RA), Sleep Apnea/CPAP/BIPAP, Thyroid Disorder Additional Past Medical History / Comment(s): COPD/asthma, chronic cough, hypothyroidism, history of basal cell carcinoma of the skin resected, history of melanoma of the skin involving the back, resected, history of diverticulosis/diverticulitis, history of fibrocystic disease, obstructive sleep apnea can sleep with the CPAP, varicose veins in lower extremities, hyp othyroidism History of Any Multi-Drug Resistant Organisms: None Reported Past Surgical History: Bladder Surgery, Bowel Resection, Cholecystectomy, Heart Catheterization, Hernia Repair, Hysterectomy, Joint Replacement, Orthopedic Surgery Additional Past Surgical History / Comment(s): LEFT KNEE REPLACED, PARTIAL THYROIDECTOMY,HIATAL HERNIA REPAIR 07/2013, ABDOMINAL HERNIA REPAIR,MULTIPLE SKIN LESIONS-PT STATED HAS HAS BASAL,SQUAMOUS AND MELANOMA SKIN CA ( NECK,RT UPPER & LOWER THIGH,LT ARM,RT ARM, face, back-melanoma)SKIN GRAFTS TO VINOD.LEGS- LT EAR-LT MIDDLE FINGER,ACHILLES TENDON surgery. RT OVARY 1 TUBE REMOVED, SIGMOI D RESECTION D/T BOWEL OBSTRUCTION,RT LITLE FINGER AMP, Past Anesthesia/Blood Transfusion Reactions: Previous Problems w/ Anesthesia, Motion Sickness, Postoperative Nausea & Vomiting (PONV) Additional Past Anesthesia/Blood Transfusion Reaction / Comment(s): STATES "HAS HAD SWELLING TO FACE,HANDS,ARMS AND SKIN TURNS "BEET RED"WITH ANESTHESIA-with IV sedation. states no problems with last surgery at [facility] 01/2017-anesthesia records on chart Past Psychological History: Anxiety Smoking Status: Former smoker Past Alcohol Use History: None Reported Additional Past Alcohol Use History / Comment(s): STARTED SMOKING 1963 AND QUIT 1973 SMOKED 1 PPD Past Drug Use History: None Reported - Past Family History Mother Family Medical History: Diabetes Mellitus Additional Family Medical History / Comment(s): HEART PROBLEMS Sister(s) Family Medical History: Diabetes Mellitus, Myocardial Infarction ([place]) Additional Family Medical History / Comment(s): EMPHYSEMA Father Family Medical History: Cancer Additional Family Medical History / Comment(s): LUNG CA. Medications and Allergies Home Medications Medication Instructions Recorded Confirmed Type Levothyroxine Sodium [Synthroid] 125 mcg PO DAILY@0600 10/18/20 06/29/21 History amLODIPine [Norvasc] 10 mg PO DAILY@0900 10/18/20 06/29/21 History Albuterol Sulfate [Albuterol 2 puff PO RT-Q6H PRN 06/03/21 06/29/21 History Sulfate Hfa] Sertraline [Zoloft] 50 mg PO HS@209906/03/21 06/29/21 History cloNIDine HCL [Catapres] 0.3 mg PO BID@0900,209906/03/21 06/29/21 History ALPRAZolam [Xanax] 0.5 mg PO DAILY PRN 06/29/21 06/29/21 History Acetaminophen [Tylenol 8 Hour] 650 mg PO Q6H PRN 06/29/21 06/29/21 History Atorvastatin [Lipitor] 20 mg PO HS@209906/29/21 06/29/21 History Benzocaine/Menthol Lozeng [Cepacol 1 lozenge MUCOUS MEM Q4HR PRN 06/29/21 06/29/21 History lozenge] Budesonide-Formot 160-4.5 Mcg 2 puff INHALATION RT-BID@899,209906/29/21 06/29/21 History [Symbicort 160-4.5 Mcg Inhaler] Docusate [Colace] 100 mg PO BID@0900,209906/29/21 06/29/21 History Famotidine [Pepcid] 20 mg PO DAILY@59906/29/21 06/29/21 History Furosemide [Lasix] 40 mg PO DAILY@0606/29/21 06/29/21 History HYDROcodone/APAP 7.5-325MG [[place] 1 tab PO QID 06/29/21 06/29/21 History 7.5-325] Ipratropium-Albuterol Nebulize 3 ml INHALATION RT-Q4H PRN 06/29/21 06/29/21 History [Duoneb 0.5 mg-3 mg/3 ml Soln] Magnesium Hydroxide [Milk of 2,400 mg PO Q72H PRN 06/29/21 06/29/21 History Magnesia] Mirtazapine [Remeron] 15 mg PO HS@2100 06/29/21 06/29/21 History Spironolactone 50 mg PO DAILY@0900 06/29/21 06/29/21 History carvediloL [Coreg*] 12.5 mg PO BID@0900,2100 06/29/21 06/29/21 History diphenhydrAMINE [Benadryl] 25 mg PO BID@0900,2100 06/29/21 06/29/21 History hydrALAZINE HCL [Apresoline] 75 mg PO TID@0600,1400,2200 06/29/21 06/29/21 History Allergies Allergy/AdvReac Type Severity Reaction Status Date / Time adhesive Allergy SKIN Verified 06/29/21 13:08 REDDENS & BLISTERS- PAPER TAPE OKAY azithromycin [From Zithromax] Allergy Nausea & Verified 06/29/21 13:08 Vomiting meperidine HCl [From Demerol] Allergy Nausea & Verified 06/29/21 13:08 Vomiting morphine Allergy Nausea & Verified 06/29/21 13:08 Vomiting Sulfa (Sulfonamide Allergy Nausea & Verified 06/29/21 13:08 Antibiotics) Vomiting tree and shrub pollen Allergy Cough Verified 06/29/21 23:54 aspirin AdvReac STOMACH Verified 06/29/21 13:08 HERRERA anesthesia Allergy facial/arms/hands Uncoded 06/17/21 19:47 swelling,skin"turns beet red", nausea DISSOLVING SUTURES Allergy INFECTION Uncoded 06/17/21 19:47 Physical Exam Vitals: Vital Signs Temp Pulse Pulse Resp BP BP BP 06/30/21 09:11 100 06/30/21 08:52 100 06/30/21 07:15 97.5 F L 74 18 150/71 06/30/21 01:11 97.8 F 78 22 159/70 06/29/21 23:41 97.8 F 75 20 163/74 06/29/21 20:31 72 06/29/21 20:19 70 06/29/21 19:30 67 18 145/79 06/29/21 18:42 65 18 115/57 06/29/21 14:28 56 L 18 121/51 Pulse Ox 06/30/21 09:11 06/30/21 08:52 06/30/21 07:15 97 06/30/21 01:11 96 06/29/21 23:41 96 06/29/21 20:31 06/29/21 20:19 06/29/21 19:30 98 06/29/21 18:42 98 06/29/21 14:28 98 Intake and Output 06/29/21 06/30/21 06/30/21 22:59 06:59 14:59 Intake Total 298 Balance 298 Intake: Oral 298 Other: Voiding Method Diaper Diaper External Catheter External Catheter # Voids 1 Weight 107 kg GENERAL EXAM: Alert, pleasant 81-year-old female patient, up in a chair at the bedside, on 3 L nasal cannula, comfortable in no apparent distress. HEAD: Normocephalic. EYES: Normal reaction of pupils, equal size. NOSE: Clear with pink turbinates. THROAT: No erythema or exudates. NECK: No masses, no JVD. CHEST: No chest wall deformity. LUNGS: Equal air entry with crackles in the bilateral posterior bases. CVS: S1 and S2 normal with no audible murmur, regular rhythm. ABDOMEN: No hepatosplenomegaly, normal bowel sounds, no guarding or rigidity. SPINE: No scoliosis or deformity SKIN: No rashes CENTRAL NERVOUS SYSTEM: No focal deficits, tone is normal in all 4 extremities. EXTREMITIES: There is 1+ peripheral edema. Changes of chronic venous stasis, dressing is dry and intact to the lower extremities No clubbing, no cyanosis. Peripheral pulses are intact. Results - Laboratory Findings CBC and BMP: 06/30/21 06:21 06/29/21 13:09 PT/INR, D-dimer PT 10.1 sec (9.0-12.0) 06/29/21 13:09 INR 0.9 (<1.2) 06/29/21 13:09 Abnormal lab findings: Abnormal Labs 06/29/21 06/29/21 06/29/21 13:09 13:09 23:43 WBC RBC 3.36 L Hgb 10.5 L Hct 32.4 L MCV MCHC Immature Gran # Neutrophils # Monocytes # Eosinophils # Glucose 127 H POC Glucose (mg/dL) 220 H Total Protein 5.2 L Albumin 2.8 L 06/30/21 06/30/21 06:21 07:15 WBC 11.40 H RBC 3.88 L Hgb 11.4 L Hct MCV 97.4 H MCHC 30.2 L Immature Gran # 0.07 H Neutrophils # 9.73 H Monocytes # 0.10 L Eosinophils # 0 L Glucose POC Glucose (mg/dL) 237 H Total Protein Albumin - Diagnostic Findings Chest x-ray: image reviewed Assessment and Plan Assessment: 1 Acute on chronic hypoxemic respiratory failure secondary to an acute exacerbation of diastolic congestive heart failure 2 Bacteremia secondary to grams positive cocci in clusters 3 Acute exacerbation of COPD and the patient has chronic dyspnea has been vaccinated for COVID-19 4 Rheumatoid arthritis 5 Obstructive sleep apnea nontolerant to CPAP therapy 6 History of skin cancer in the form of squamous cell carcinoma and basal cell carcinoma and melanoma, all resected 7 History of diverticular disease 8 Gastroesophageal reflux disease 9 Remote history of pulmonary embolism, in a postoperative setting 10 Hypertension 11 Hypothyroidism 12 Chronic back pain has been on [place] 7.5 and she'll be given 1 tablet every 24 hours on an as-needed basis for ongoing pain. 13 Coronary artery disease with nonocclusive disease based on a cardiac catheterization from 2018 with mild disease involving the LAD, preserved LV function Plan: The patient was seen and evaluated by Dr. Bose Chest x-ray, blood cultures and labs reviewed Currently on vancomycin Continue IV diuretics Continue IV Solu-Medrol, Symbicort, DuoNeb inhalations Titrate the FiO2 as tolerated Increase her activity as tolerated We will continue to follow and make further recommendations based on her clinical status I, the cosigning physician, performed a history & physical examination of the patient. Lungs sounds crackles in the bilateral bases. Maintaining good O2 saturations in the 90s on 3 L/m per nasal cannula. I discussed the assessment and plan of care with my nurse practitioner, Lashae Blackburn. I attest to the above note as dictated by her. Time with Patient: Greater than 30
[2021-06-30 14:22] LABS: African American GFR (CKD) 79.6 (60.0-200.0); Calcium 8.9 mg/dL (8.7-10.3); Carbon Dioxide 21.8 mmol/L (21.6-31.8); Chloride 100 mmol/L (96-109); Glucose 224 mg/dL (70-110); Non-African American GFR(CKD) 68.7 (60.0-200.0); Potassium 4.5 mmol/L (3.5-5.5); Sodium 138 mmol/L (135-145)
[2021-06-30 17:19] LABS: Glucose,Whole Blood 194 mg/dL (75-99)
[2021-06-30 20:15] LABS: Glucose,Whole Blood 221 mg/dL (75-99)
[2021-06-30] MEDS: MIRTAZAPINE 15 MG TAB PO SCH (20:22)
[2021-06-30] MEDS: ATORVASTATIN 20 MG TAB PO SCH (20:22)
--- NOTE | 2021-06-30 23:09 | P.PN ---
Subjective Progress Note Date: 06/30/21 Principal diagnosis: Acute COPD exacerbation and acute on chronic CHF with respiratory dysfunction Patient is a 81-year-old female with a known history of hypertension, hyperlipidemia, asthma/COPD on home oxygen at 3 L 24 x 7, history of PE, parotiditis, obstructive sleep apnea on CPAP, varicose veins in the bilateral lower extremities, hypothyroidism and other multiple medical problems and recent history of bowel obstruction and Enterococcus UTI, was sent to [facility] care facility presented to ER with complaints of shortness of breath worsening since last night. Patient breathing status got worse this morning and was sent to ER. Otherwise patient denied any fever or chills. Does have cough with or sputum production. Patient does have chronic bilateral leg swelling and venous stasis and varicose veins. Patient is also having blisters on both legs and Lenard wrap. Denied any complaints of nausea vomiting or abdominal pain or diarrhea. No dys uria or hematuria. Chest x-ray showed CHF exacerbation suspected. EKG showed sinus bradycardia Patient had 2D echocardiogram done in October 2020 showed ejection fraction 50 to 55%. No significant valvular abnormalities were noted. Right ventricular systolic pressure is less than 35 on his disease. Laboratory showed WBC 8.7 hemoglobin 10.5 and platelets 254 Sodium 137 potassium 4.2 chloride 102 bicarb is 29 BUN 11 and creatinine 0.69 and blood sugar is 127 magnesium 1.9 troponin less than 0.012 and proBNP 801 and coronavirus PCR not detected. Patient is vaccinated against COVID-19. 06/30/2021 Patient is currently sitting in the recliner. Shortness of breath is much improved. Denies any complaints of chest pain. Still having bilateral diminished air entry and wheezing present. Bilateral lower extremity swelling is improving. Patient is having good urine output. No fever no chills. No cough or sputum production. No nausea vomiting abdominal pain or diarrhea. Patient has been: IV Lasix 40 mg every 12 and IV steroids and duo nebs. Pulmonary is on board. Laboratory showed WBC 11.4 hemoglobin 11.4 and platelets 246 BUN 14 and creatinine 0.8 and blood sugar is 224 and TSH level is 0.748 Current medications reviewed. Objective - Vital Signs Vital signs: Vital Signs Temp 98.8 F 06/30/21 20:00 Pulse 84 06/30/21 20:47 Resp 16 06/30/21 20:00 BP 173/73 06/30/21 20:00 Pulse Ox 96 06/30/21 20:34 Intake & Output 06/30/21 06/30/21 07/01/21 06:59 18:59 06:59 Intake Total 416 100 Output Total 900 Balance -484 100 Weight 107 kg Intake: Oral 416 100 Output: Urine 900 Other: Voiding Method Diaper Diaper Diaper External Catheter External Catheter External Catheter # Voids 1 1 1 - Exam PHYSICAL EXAMINATION: Patient is lying in the bed comfortably, no acute distress, awake alert and oriented.. HEENT: Normocephalic. Neck is supple. Pupils reactive. Nostrils clear. Oral cavity is moist. Neck reveals no JVD, carotid bruits, or thyromegaly. CHEST EXAMINATION: Trachea is central. Symmetrical expansion. Bilateral diffuse wheezing and diminished air entry. Nonlabored breathing.. CARDIAC: Normal S1, S2 with no gallops. No murmurs ABDOMEN: Soft. Bowel sounds normal. No organomegaly. No abdominal bruits. Extremities: 3+ pedal edema. No clubbing or cyanosis Neurologically awake, alert, oriented x3 with well-coordinated movements. No focal deficits noted Skin: No rash or skin lesions. Psychiatric: Cooperative. Nonsuicidal, anxious Musculoskeletal: No joint swelling or deformity. Normal range of motion. - Labs CBC & Chem 7: 07/01/21 06:28 07/01/21 06:28 Labs: Abnormal Lab Results - Last 24 Hours (Table) 06/29/21 06/30/21 06/30/21 Range/Units 23:43 06:21 06:21 WBC 11.40 H (4.50-10.00) X 10*3/uL RBC 3.88 L (4.10-5.20) X 10*6/uL Hgb 11.4 L (12.0-15.0) g/dL MCV 97.4 H (80.0-97.0) fL MCHC 30.2 L (32.0-37.0) g/dL Immature Gran # 0.07 H (0.00-0.04) X 10*3/uL Neutrophils # 9.73 H (1.80-7.70) X 10*3/uL Monocytes # 0.10 L (0.20-1.00) X 10*3/uL Eosinophils # 0 L (0.04-0.35) X 10*3/uL Anion Gap 16.20 H (4.00-12.00) mmol/L Glucose 224 H (70-110) mg/dL POC Glucose (mg/dL) 220 H (75-99) mg/dL 06/30/21 06/30/21 06/30/21 Range/Units 07:15 17:12 20:13 WBC (4.50-10.00) X 10*3/uL RBC (4.10-5.20) X 10*6/uL Hgb (12.0-15.0) g/dL MCV (80.0-97.0) fL MCHC (32.0-37.0) g/dL Immature Gran # (0.00-0.04) X 10*3/uL Neutrophils # (1.80-7.70) X 10*3/uL Monocytes # (0.20-1.00) X 10*3/uL Eosinophils # (0.04-0.35) X 10*3/uL Anion Gap (4.00-12.00) mmol/L Glucose (70-110) mg/dL POC Glucose (mg/dL) 237 H 194 H 221 H (75-99) mg/dL Microbiology - Last 24 Hours (Table) 06/29/21 13:09 Blood Culture Gram Stain - Preliminary Blood Blood Culture - Preliminary Staphylococcus epidermidis 06/29/21 13:09 Blood Culture - Final Blood Assessment and Plan Assessment: Shortness of breath secondary to acute COPD exacerbation Acute on chronic CHF with diastolic dysfunction. Chronic hypoxic respiratory failure on oxygen at 3 L via nasal cannula. Recent admission with bowel obstruction and discharged to ECF. Hypertension Hyperlipidemia GERD History of basal cell skin cancer status post resection Rheumatoid arthritis Obstructive sleep apnea on CPAP Obesity with BMI 37.6 Hypothyroidism History of diverticulosis Anxiety Chronic swelling of the bilateral lower extremities, venous stasis and varicose veins. Previous history of smoking DVT prophylaxis with heparin subcu Plan: Patient will be continued on oxygen supplementation and continue with IV steroids and Symbicort. Continue duo nebs. Patient was given a dose of IV Lasix. Continue with IV Lasix 40 mg twice daily. Monitor renal function closely. Repeat chest x-ray in the morning. Pulmonary is on board. follow-up closely. Prognosis guarded with multiple medical problems and comorbid conditions. Time with Patient: Greater than 30
[2021-07-01] MEDS: HEPARIN SODIUM,PORCINE/PF 5,000 UNIT/0.5 ML SYRINGE SQ SCH ×4 (00:56→21:23)
[2021-07-01] MEDS: methylPREDNISolone SOD SUCCI 125 MG/2 ML VIAL IV SCH ×5 (00:56→23:52)
[2021-07-01] MEDS ORDERED: VANCOMYCIN 1,750 MG in SODIUM CHLORIDE 0.9% 500 ML 500 ML IVPB SCH (02:00)
[2021-07-01] MEDS: LEVOTHYROXINE 125 MCG TAB PO SCH (06:17)
[2021-07-01] MEDS: FAMOTIDINE 20 MG TAB PO SCH (06:19)
[2021-07-01 07:14] LABS: Glucose,Whole Blood 145 mg/dL (75-99)
[2021-07-01 07:19] LABS: African American GFR (CKD) >90 (>60 ml/min/1.73 sqM); Anion Gap 10 mmol/L; Blood Urea Nitrogen 19 mg/dL (7-17); Calcium 9.1 mg/dL (8.4-10.2); Carbon Dioxide 27 mmol/L (22-30); Chloride 100 mmol/L (98-107); Glucose 163 mg/dL (74-99); Non-African American GFR(CKD) 79 (>60 ml/min/1.73 sqM); Sodium 137 mmol/L (137-145)
[2021-07-01] MEDS: HYDROcodone/APAP 7.5-325MG 1 EACH TAB PO SCH ×4 (08:02→21:22)
[2021-07-01] MEDS: INSULIN ASPART (NovoLOG) 100 UNIT/ML VIAL SQ SCH ×4 (08:03→21:21)
[2021-07-01] MEDS: carvediloL 12.5 MG TAB PO SCH ×2 (08:03→19:40)
[2021-07-01] MEDS: FUROSEMIDE 10 MG/ML 4 ML VIAL IV SCH ×2 (08:03→19:41)
[2021-07-01] MEDS: DOCUSATE 100 MG CAP PO SCH ×2 (08:03→19:40)
--- NOTE | 2021-07-01 08:11 | XR ---
EXAMINATION TYPE: XR chest 1V DATE OF EXAM: 07/01/2021 COMPARISON: 06/29/2021 INDICATION: CHF TECHNIQUE: Single frontal view of the chest is obtained. FINDINGS: The heart size is moderate. The pulmonary vasculature is normal. No suspicious infiltrates. IMPRESSION: 1. Cardiomegaly
[2021-07-01] MEDS: IPRATROPIUM-ALBUTEROL 3 ML NEB INHALATION PRN ×4 (08:40→20:27)
[2021-07-01] MEDS: SYMBICORT 160-4.5 MCG INHALER INHALATION SCH ×2 (08:41→20:27)
[2021-07-01 10:44] LABS: Basophils # (A) 0.03 X 10*3/uL (0.00-0.10); Basophils % (A) 0.2 %; Eosinophils # (A) 0 X 10*3/uL (0.04-0.35); Eosinophils % (A) 0 %; HCT 39.7 % (37.2-46.3); HGB 12.3 g/dL (12.0-15.0); Lymphocytes # (A) 1.49 X 10*3/uL (0.90-5.00); Lymphocytes % (A) 7.9 %; MCH 29.9 pg (27.0-32.0); MCV 96.6 fL (80.0-97.0); Monocytes # (A) 1.52 X 10*3/uL (0.20-1.00); Monocytes % (A) 8.1 %; Neutrophils # (A) 15.53 X 10*3/uL (1.80-7.70); Neutrophils % (A) 82.8 %; Platelet Count 354 X 10*3/uL (140-440); RBC 4.11 X 10*6/uL (4.10-5.20); RDW 14.5 % (11.5-14.5); WBC 18.75 X 10*3/uL (4.50-10.00)
[2021-07-01 12:20] LABS: Glucose,Whole Blood 188 mg/dL (75-99)
--- NOTE | 2021-07-01 14:30 | P.PN ---
Subjective Progress Note Date: 07/01/21 This a very pleasant 81-year-old female patient who follows with Dr. Pearson is her primary care provider. She has a history of chronic obstructive pulmonary disease/asthma, hyperlipidemia, hypertension, osteoarthritis, rheumatoid arthritis, pulmonary embolism, obstructive sleep apnea retained on CPAP, hypothyroidism, melanoma resected from her back, chronic diastolic congestive heart failure, chronic lower extremity edema with cellulitis and open wounds at times. Her last admission she had been residing at [facility] on the [place]. Yesterday she developed increasing shortness of breath cough and congestion and was brought here to the emergency room. Chest x-ray revealed evidence of congestive heart failure with mild to moderate central vascular congestion and small bilateral effusions. Echocardiogram from earlier this year revealed preserved left ventricular systolic function with ejection fraction 50-55%. No significant valvular heart disease. EKG with sinus bradycardia. He can't 11.4. Hemoglobin 11.4. Sodium 137. Potassium 4.2. Creatinine 0.69. Glucose 237. Troponin negative times one. ProBNP 801. TSH 0.748. Currently virus not detected. She is seen today in consultation on the regular medical floor. She is currently sitting up in a chair at the bedside. Awake and alert in no acute distress. Maintaining O2 saturations in the 90s on 3 L/m per nasal cannula. She does have some lower extremity edema. Dressings dry and intact. Initial blood cultures revealing gram-positive cocci in clusters. She's been initiated on vancomycin. She's continued on IV Solu-Medrol, IV diuretics, Symbicort, DuoNeb inhalations. 07/01/2021 patient is feeling slightly better compared to yesterday. Chest x- ray shows clear to megaly and improvement in the volume status and the interstitial infiltrates. The patient continues to be on diuretics. She is a negative fluid balance. Blood work today still pending for now. Meanwhile, the patient is on Lasix 40 g IV every 12 hours. She remains on bronchodilators. She remains on steroids. She is less bronchospastic compared to yesterday. The blood cultures obtained earlier [place] to be staph epidermidis, likely contaminant. Objective - Vital Signs Vital signs: Vital Signs Temp 98.4 F 07/01/21 07:20 Pulse 88 07/01/21 12:51 Resp 20 07/01/21 07:20 BP 168/74 07/01/21 07:20 Pulse Ox 98 07/01/21 07:20 Intake & Output 06/30/21 07/01/21 07/01/21 18:59 06:59 18:59 Intake Total 416 350 318 Output Total 900 900 Balance -484 350 -582 Weight 106.5 kg Intake: Oral 416 350 318 Output: Urine 900 900 Other: Voiding Method Diaper Diaper Diaper External Catheter External Catheter External Catheter # Voids 1 2 1 - Exam GENERAL EXAM: Alert, pleasant 81-year-old female patient, up in a chair at the bedside, on 3 L nasal cannula, comfortable in no apparent distress. HEAD: Normocephalic. EYES: Normal reaction of pupils, equal size. NOSE: Clear with pink turbinates. THROAT: No erythema or exudates. NECK: No masses, no JVD. CHEST: No chest wall deformity. LUNGS: Equal air entry with crackles in the bilateral posterior bases. CVS: S1 and S2 normal with no audible murmur, regular rhythm. ABDOMEN: No hepatosplenomegaly, normal bowel sounds, no guarding or rigidity. SPINE: No scoliosis or deformity SKIN: No rashes CENTRAL NERVOUS SYSTEM: No focal deficits, tone is normal in all 4 extremities. EXTREMITIES: There is 1+ peripheral edema. Changes of chronic venous stasis, dressing is dry and intact to the lower extremities No clubbing, no cyanosis. Peripheral pulses are intact. - Labs CBC & Chem 7: 07/01/21 06:28 07/01/21 06:28 Labs: Abnormal Lab Results - Last 24 Hours (Table) 06/30/21 06/30/21 07/01/21 Range/Units 17:12 20:13 06:28 WBC (4.50-10.00) X 10*3/uL MCHC (32.0-37.0) g/dL Immature Gran # (0.00-0.04) X 10*3/uL Neutrophils # (1.80-7.70) X 10*3/uL Monocytes # (0.20-1.00) X 10*3/uL Eosinophils # (0.04-0.35) X 10*3/uL BUN 19 H (7-17) mg/dL Glucose 163 H (74-99) mg/dL POC Glucose (mg/dL) 194 H 221 H (75-99) mg/dL 07/01/21 07/01/21 07/01/21 Range/Units 06:28 07:12 12:19 WBC 18.75 H (4.50-10.00) X 10*3/uL MCHC 31.0 L (32.0-37.0) g/dL Immature Gran # 0.18 H (0.00-0.04) X 10*3/uL Neutrophils # 15.53 H (1.80-7.70) X 10*3/uL Monocytes # 1.52 H (0.20-1.00) X 10*3/uL Eosinophils # 0 L (0.04-0.35) X 10*3/uL BUN (7-17) mg/dL Glucose (74-99) mg/dL POC Glucose (mg/dL) 145 H 188 H (75-99) mg/dL Microbiology - Last 24 Hours (Table) 06/29/21 13:09 Blood Culture Gram Stain - Preliminary Blood Blood Culture - Preliminary Staphylococcus epidermidis Assessment and Plan Plan: Assessment: 1 Acute on chronic hypoxemic respiratory failure secondary to an acute exacerbation of diastolic congestive heart failure, improving with a combination of diuretics and the patient is also being treated with systemic steroids for COPD exacerbation and this is also improving. 2 Bacteremia secondary to grams positive cocci in clusters, contaminant, staph epidermidis 3 Acute exacerbation of COPD and the patient has chronic dyspnea has been vaccinated for COVID-19 4 Rheumatoid arthritis 5 Obstructive sleep apnea nontolerant to CPAP therapy 6 History of skin cancer in the form of squamous cell carcinoma and basal cell carcinoma and melanoma, all resected 7 History of diverticular disease 8 Gastroesophageal reflux disease 9 Remote history of pulmonary embolism, in a postoperative setting 10 Hypertension 11 Hypothyroidism 12 Chronic back pain has been on [place] 7.5 and she'll be given 1 tablet every 24 hours on an as-needed basis for ongoing pain. 13 Coronary artery disease with nonocclusive disease based on a cardiac catheterization from 2018 with mild disease involving the LAD, preserved LV function Plan: No need for vancomycin Continue IV diuretics Continue IV Solu-Medrol, Symbicort, DuoNeb inhalations Titrate the FiO2 as tolerated Increase her activity as tolerated Clinically improved compared to yesterday. Monitor renal function. Obtain labs. We will continue to follow and make further recommendations based on her clinica l status
[2021-07-01 17:01] LABS: Glucose,Whole Blood 236 mg/dL (75-99)
[2021-07-01] MEDS: MIRTAZAPINE 15 MG TAB PO SCH (19:41)
[2021-07-01] MEDS: ATORVASTATIN 20 MG TAB PO SCH (19:41)
[2021-07-01 20:22] LABS: Glucose,Whole Blood 266 mg/dL (75-99)
[2021-07-01] MEDS ORDERED: hydrALAZINE HCL 20 MG/ML 1 ML VIAL IVP PRN (20:30)
--- NOTE | 2021-07-01 23:01 | P.PN ---
Subjective Progress Note Date: 07/01/21 Principal diagnosis: Acute COPD exacerbation and acute on chronic CHF with respiratory dysfunction Patient is a 81-year-old female with a known history of hypertension, hyperlipidemia, asthma/COPD on home oxygen at 3 L 24 x 7, history of PE, parotiditis, obstructive sleep apnea on CPAP, varicose veins in the bilateral lower extremities, hypothyroidism and other multiple medical problems and recent history of bowel obstruction and Enterococcus UTI, was sent to [facility] care facility presented to ER with complaints of shortness of breath worsening since last night. Patient breathing status got worse this morning and was sent to ER. Otherwise patient denied any fever or chills. Does have cough with or sputum production. Patient does have chronic bilateral leg swelling and venous stasis and varicose veins. Patient is also having blisters on both legs and Lenard wrap. Denied any complaints of nausea vomiting or abdominal pain or diarrhea. No dys uria or hematuria. Chest x-ray showed CHF exacerbation suspected. EKG showed sinus bradycardia Patient had 2D echocardiogram done in October 2020 showed ejection fraction 50 to 55%. No significant valvular abnormalities were noted. Right ventricular systolic pressure is less than 35 on his disease. Laboratory showed WBC 8.7 hemoglobin 10.5 and platelets 254 Sodium 137 potassium 4.2 chloride 102 bicarb is 29 BUN 11 and creatinine 0.69 and blood sugar is 127 magnesium 1.9 troponin less than 0.012 and proBNP 801 and coronavirus PCR not detected. Patient is vaccinated against COVID-19. 06/30/2021 Patient is currently sitting in the recliner. Shortness of breath is much improved. Denies any complaints of chest pain. Still having bilateral diminished air entry and wheezing present. Bilateral lower extremity swelling is improving. Patient is having good urine output. No fever no chills. No cough or sputum production. No nausea vomiting abdominal pain or diarrhea. Patient has been: IV Lasix 40 mg every 12 and IV steroids and duo nebs. Pulmonary is on board. Laboratory showed WBC 11.4 hemoglobin 11.4 and platelets 246 BUN 14 and creatinine 0.8 and blood sugar is 224 and TSH level is 0.748 07/01/2021 Patient is currently in the recliner. Breathing status is better today. Still having chest tightness and expiratory wheezing and scattered rhonchi present. Patient has been afebrile. Continue IV steroids and also IV diuretics. Leg swelling is better. Patient has been afebrile. No cough or sputum production. No headache or dizziness or lightheadedness. Currently requiring 4 L oxygen via nasal cannula. Laboratory data showed WBC 18.75 hemoglobin 12.3 and platelets 354 BUN 19 and creatinine 0.72 and blood sugar is 163. Pulmonary is on board. Current medications reviewed. Objective - Vital Signs Vital signs: Vital Signs Temp 98.7 F 07/01/21 14:58 Pulse 80 07/01/21 16:31 Resp 20 07/01/21 14:58 BP 188/70 07/01/21 14:58 Pulse Ox 95 07/01/21 14:58 Intake & Output 06/30/21 07/01/21 07/01/21 18:59 06:59 18:59 Intake Total 416 350 436 Output Total 900 1850 Balance -484 350 -1414 Weight 106.5 kg Intake: Oral 416 350 436 Output: Urine 900 1850 Other: Voiding Method Diaper Diaper Diaper External Catheter External Catheter External Catheter # Voids 1 2 1 - Exam PHYSICAL EXAMINATION: Patient is lying in the bed comfortably, no acute distress, awake alert and oriented.. HEENT: Normocephalic. Neck is supple. Pupils reactive. Nostrils clear. Oral cavity is moist. Neck reveals no JVD, carotid bruits, or thyromegaly. CHEST EXAMINATION: Trachea is central. Symmetrical expansion. Bilateral diffuse wheezing and diminished air entry. Nonlabored breathing.. CARDIAC: Normal S1, S2 with no gallops. No murmurs ABDOMEN: Soft. Bowel sounds normal. No organomegaly. No abdominal bruits. Extremities: 3+ pedal edema. No clubbing or cyanosis Neurologically awake, alert, oriented x3 with well-coordinated movements. No focal deficits noted Skin: No rash or skin lesions. Psychiatric: Cooperative. Nonsuicidal, anxious Musculoskeletal: No joint swelling or deformity. Normal range of motion. - Labs CBC & Chem 7: 07/01/21 06:28 07/01/21 06:28 Labs: Abnormal Lab Results - Last 24 Hours (Table) 06/30/21 06/30/21 07/01/21 Range/Units 17:12 20:13 06:28 WBC (4.50-10.00) X 10*3/uL MCHC (32.0-37.0) g/dL Immature Gran # (0.00-0.04) X 10*3/uL Neutrophils # (1.80-7.70) X 10*3/uL Monocytes # (0.20-1.00) X 10*3/uL Eosinophils # (0.04-0.35) X 10*3/uL BUN 19 H (7-17) mg/dL Glucose 163 H (74-99) mg/dL POC Glucose (mg/dL) 194 H 221 H (75-99) mg/dL 07/01/21 07/01/21 07/01/21 Range/Units 06:28 07:12 12:19 WBC 18.75 H (4.50-10.00) X 10*3/uL MCHC 31.0 L (32.0-37.0) g/dL Immature Gran # 0.18 H (0.00-0.04) X 10*3/uL Neutrophils # 15.53 H (1.80-7.70) X 10*3/uL Monocytes # 1.52 H (0.20-1.00) X 10*3/uL Eosinophils # 0 L (0.04-0.35) X 10*3/uL BUN (7-17) mg/dL Glucose (74-99) mg/dL POC Glucose (mg/dL) 145 H 188 H (75-99) mg/dL Microbiology - Last 24 Hours (Table) 06/29/21 13:09 Blood Culture Gram Stain - Preliminary Blood Blood Culture - Preliminary Staphylococcus epidermidis Coagulase Negative Staph Assessment and Plan Assessment: Shortness of breath secondary to acute COPD exacerbation Acute on chronic CHF with diastolic dysfunction. Chronic hypoxic respiratory failure on oxygen at 3 L via nasal cannula. Recent admission with bowel obstruction and discharged to [facility]. Hypertension Hyperlipidemia GERD History of basal cell skin cancer status post resection Rheumatoid arthritis Obstructive sleep apnea on CPAP Obesity with BMI 37.6 Hypothyroidism History of diverticulosis Anxiety Chronic swelling of the bilateral lower extremities, venous stasis and varicose veins. Previous history of smoking DVT prophylaxis with heparin subcu Plan: Patient will be continued on oxygen supplementation and continue with IV steroids and Symbicort. Continue duo nebs. Patient was given a dose of IV Lasix. Continue with IV Lasix 40 mg twice daily. Monitor renal function closely. Repeat chest x-ray showed cardiomegaly. Pulmonary is on board. follow-up closely. Prognosis guarded with multiple medical problems and comorbid conditions. Time with Patient: Greater than 30
[2021-07-02] MEDS: methylPREDNISolone SOD SUCCI 125 MG/2 ML VIAL IV SCH (05:08)
[2021-07-02] MEDS: FAMOTIDINE 20 MG TAB PO SCH (05:09)
[2021-07-02] MEDS: LEVOTHYROXINE 125 MCG TAB PO SCH (05:09)
[2021-07-02 06:29] LABS: African American GFR (CKD) 89 (>60 ml/min/1.73 sqM); Anion Gap 7 mmol/L; Blood Urea Nitrogen 22 mg/dL (7-17); Carbon Dioxide 33 mmol/L (22-30); Chloride 97 mmol/L (98-107); Glucose 234 mg/dL (74-99); Non-African American GFR(CKD) 77 (>60 ml/min/1.73 sqM); Potassium 3.7 mmol/L (3.5-5.1); Sodium 137 mmol/L (137-145)
[2021-07-02 07:33] LABS: Glucose,Whole Blood 217 mg/dL (75-99)
[2021-07-02] MEDS: SYMBICORT 160-4.5 MCG INHALER INHALATION SCH ×2 (08:22→19:59)
[2021-07-02] MEDS ORDERED: Potassium Replacement Protocol 1 EACH MISC MISCELLANE PRN (08:42)
[2021-07-02] MEDS: HEPARIN SODIUM,PORCINE/PF 5,000 UNIT/0.5 ML SYRINGE SQ SCH ×3 (08:44→20:26)
[2021-07-02] MEDS: carvediloL 12.5 MG TAB PO SCH ×2 (08:44→20:25)
[2021-07-02] MEDS: hydrALAZINE HCL 25 MG TAB PO SCH ×3 (08:44→21:55)
[2021-07-02] MEDS: HYDROcodone/APAP 7.5-325MG 1 EACH TAB PO SCH ×4 (08:44→21:55)
[2021-07-02] MEDS: FUROSEMIDE 10 MG/ML 4 ML VIAL IV SCH ×2 (08:44→20:25)
[2021-07-02] MEDS: DOCUSATE 100 MG CAP PO SCH ×2 (08:44→20:25)
[2021-07-02] MEDS: predniSONE 10 MG TAB PO SCH (08:45)
[2021-07-02] MEDS: INSULIN ASPART (NovoLOG) 100 UNIT/ML VIAL SQ SCH ×4 (08:45→20:24)
[2021-07-02] MEDS ORDERED: POTASSIUM CHLORIDE ER 20 MEQ TAB.ER PO SCH (09:00)
[2021-07-02 11:05] LABS: Basophils # (A) 0.01 X 10*3/uL (0.00-0.10); Basophils % (A) 0.1 %; Eosinophils # (A) 0 X 10*3/uL (0.04-0.35); Eosinophils % (A) 0 %; HCT 39.1 % (37.2-46.3); HGB 12.3 g/dL (12.0-15.0); Lymphocytes # (A) 1.51 X 10*3/uL (0.90-5.00); Lymphocytes % (A) 11.6 %; MCH 30.1 pg (27.0-32.0); MCHC 31.5 g/dL (32.0-37.0); MCV 95.8 fL (80.0-97.0); Mean Platelet Volume 10.4 fL (9.5-12.2); Monocytes # (A) 0.42 X 10*3/uL (0.20-1.00); Monocytes % (A) 3.2 %; Neutrophils # (A) 10.91 X 10*3/uL (1.80-7.70); Neutrophils % (A) 83.9 %; Platelet Count 315 X 10*3/uL (140-440); RBC 4.08 X 10*6/uL (4.10-5.20); RDW 14.3 % (11.5-14.5); WBC 13.01 X 10*3/uL (4.50-10.00)
[2021-07-02] MEDS: IPRATROPIUM-ALBUTEROL 3 ML NEB INHALATION PRN ×3 (11:24→19:59)
--- NOTE | 2021-07-02 11:25 | P.PN ---
Subjective Progress Note Date: 07/02/21 Principal diagnosis: Acute exacerbation of diastolic CHF, gram-positive bacteremia This a very pleasant 81-year-old female patient who follows with Dr. Pearson is her primary care provider. She has a history of chronic obstructive pulmonary disease/asthma, hyperlipidemia, hypertension, osteoarthritis, rheumatoid arthritis, pulmonary embolism, obstructive sleep apnea retained on CPAP, hypothyroidism, melanoma resected from her back, chronic diastolic congestive heart failure, chronic lower extremity edema with cellulitis and open wounds at times. Her last admission she had been residing at [facility]. Yesterday she developed increasing shortness of breath cough and congestion and was brought here to the emergency room. Chest x-ray revealed evidence of congestive heart failure with mild to moderate central vascular congestion and small bilateral effusions. Echocardiogram from earlier this year revealed preserved left ventricular systolic function with ejection fraction 50-55%. No significant valvular heart disease. EKG with sinus bradycardia. He can't 11.4. Hemoglobin 11.4. Sodium 137. Potassium 4.2. Creatinine 0.69. Glucose 237. Troponin ne gative times one. ProBNP 801. TSH 0.748. Currently virus not detected. She is seen today in consultation on the regular medical floor. She is currently sitting up in a chair at the bedside. Awake and alert in no acute distress. Maintaining O2 saturations in the 90s on 3 L/m per nasal cannula. She does have some lower extremity edema. Dressings dry and intact. Initial blood cultures revealing gram-positive cocci in clusters. She's been initiated on vancomycin. She's continued on IV Solu-Medrol, IV diuretics, Symbicort, DuoNeb inhalations. 07/01/2021 patient is feeling slightly better compared to yesterday. Chest x- ray shows clear to megaly and improvement in the volume status and the interstitial infiltrates. The patient continues to be on diuretics. She is a negative fluid balance. Blood work today still pending for now. Meanwhile, the patient is on Lasix 40 g IV every 12 hours. She remains on bronchodilators. She remains on steroids. She is less bronchospastic compared to yesterday. The blood cultures obtained earlier engine turner to be staph epidermidis, likely co ntaminant. On 07/02/2001 patient seen in follow-up on medical surgical floor, she is currently resting comfortably in the recliner, she is currently on 4 L of oxygen pulse ox is 97%, she continues on Lasix 40 mg every 12 hours, she is in -2.3 L net fluid balance. She still has a mildly congested cough, oral her breathing is improving. She has had no fever or chills, her blood cultures resulted with Staphylococcus epidermidis related to a skin contaminant. Another set of blood cultures drawn on the same day showed no growth. There is labs have been reviewed, white blood cell, 13.1 improving, hemoglobin is 12.3, sodium is 137, potassium is 3.7, chloride is 97, CO2 33, B1 is 22 creatinine 0.73. Patient has had elevated blood pressures, and she developed hyperglycemia although patient does not have history of diabetes at baseline. This is likely steroid-induced hyperglycemia and we will adjust her steroid dose, and anti-hypertensives. Otherwise clinically she's been stable, we will consider her for discharge likely tomorrow. Objective - Vital Signs Vital signs: Vital Signs Temp 98.1 F 07/02/21 07:00 Pulse 77 07/02/21 07:00 Resp 20 07/02/21 07:00 BP 199/99 07/02/21 07:00 Pulse Ox 96 07/02/21 07:00 Intake & Output 07/01/21 07/02/21 07/02/21 18:59 06:59 18:59 Intake Total 436 Output Total 1850 925 0 Balance -1414 -925 0 Weight 105 kg Intake: Oral 436 Output: Urine 1850 925 Emesis 0 0 Other: Voiding Method Diaper Diaper Diaper External Catheter External Catheter External Catheter # Voids 1 # Bowel Movements 0 0 - Exam GENERAL EXAM: Alert, very pleasant, 81-year-old white female, on 4 L of oxygen with pulse ox 97%, sitting up in the recliner., comfortable in no apparent distress. HEAD: Normocephalic/atraumatic. EYES: Normal reaction of pupils, equal size. Conjunctiva pink, sclera white. NOSE: Clear with pink turbinates. THROAT: No erythema or exudates. NECK: No masses, no JVD, no thyroid enlargement, no adenopathy. CHEST: No chest wall deformity. Symmetrical expansion. LUNGS: Equal air entry with mild end expiratory wheezing, mildly congested cough CVS: Regular rate and rhythm, normal S1 and S2, no gallops, no murmurs, no rubs ABDOMEN: Soft, nontender. No hepatosplenomegaly, normal bowel sounds, no guarding or rigidity. EXTREMITIES: No clubbing, 1+ lower extremity edema, with possible wounds although the patient states she does not have any draining wounds on her lower extremities, and these areas are covered by bandages. no cyanosis, 2+ pulses and upper and lower extremities. MUSCULOSKELETAL: Muscle strength and tone normal. SPINE: No scoliosis or deformity SKIN: No rashes CENTRAL NERVOUS SYSTEM: Alert and oriented -3. No focal deficits, tone is norm al in all 4 extremities. PSYCHIATRIC: Alert and oriented -3. Appropriate affect. Intact judgment and insight. - Labs CBC & Chem 7: 07/02/21 05:31 07/02/21 05:31 Labs: Abnormal Lab Results - Last 24 Hours (Table) 07/01/21 07/01/21 07/01/21 Range/Units 12:19 17:00 20:17 WBC (4.50-10.00) X 10*3/uL RBC (4.10-5.20) X 10*6/uL MCHC (32.0-37.0) g/dL Immature Gran # (0.00-0.04) X 10*3/uL Neutrophils # (1.80-7.70) X 10*3/uL Eosinophils # (0.04-0.35) X 10*3/uL Chloride (98-107) mmol/L Carbon Dioxide (22-30) mmol/L BUN (7-17) mg/dL Glucose (74-99) mg/dL POC Glucose (mg/dL) 188 H 236 H 266 H (75-99) mg/dL 07/02/21 07/02/21 07/02/21 Range/Units 05:31 05:31 07:26 WBC 13.01 H (4.50-10.00) X 10*3/uL RBC 4.08 L (4.10-5.20) X 10*6/uL MCHC 31.5 L (32.0-37.0) g/dL Immature Gran # 0.16 H (0.00-0.04) X 10*3/uL Neutrophils # 10.91 H (1.80-7.70) X 10*3/uL Eosinophils # 0 L (0.04-0.35) X 10*3/uL Chloride 97 L (98-107) mmol/L Carbon Dioxide 33 H (22-30) mmol/L BUN 22 H (7-17) mg/dL Glucose 234 H (74-99) mg/dL POC Glucose (mg/dL) 217 H (75-99) mg/dL Microbiology - Last 24 Hours (Table) 06/29/21 13:09 Blood Culture Gram Stain - Preliminary Blood Blood Culture - Preliminary Staphylococcus epidermidis Coagulase Negative Staph Assessment and Plan Plan: Assessment: #1. Acute on chronic hypoxic respiratory failure secondary to acute exacerbation of diastolic CHF, improving #2. Acute exacerbation of COPD related to the above #3. Status post vaccination for COVID-19, COVID19 PCR is negative this admission #4. Bacteremia related to staph epidermidis, skin contaminant #5. Rheumatoid arthritis #6. Obstructive sleep apnea nontolerant to CPAP therapy #7. 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 History of diverticular disease #9. GERD/reflux #10. Remote history of pulmonary embolism #11. Hypertension #12. Hypothyroidism #13. Chronic back pain #14. Coronary artery disease with nonocclusive disease and preserved LV function Plan: We will stop IV steroids, and start the patient on oral prednisone 30 mg And hydralazine 25 mg 3 times daily Continue Lasix 40 mg every 12 hours Continue bronchodilators Increase Coreg to 25 mg twice daily Patient is improving, will need another 24 hours of treatment, If continues to improve will consider for discharge to subacute rehab tomorrow I performed a history & physical examination of the patient and discussed their management with my nurse practitioner, Meghan Naidu. I reviewed the nurse practitioner's note and agree with the documented findings and plan of care. Lung sounds are positive for diminished breath sounds throughout the lung khalil. The findings and the impression was discussed with the patient. I attest to the documentation by the nurse practitioner. Time with Patient: Less than 30
[2021-07-02 12:25] LABS: Glucose,Whole Blood 160 mg/dL (75-99)
--- NOTE | 2021-07-02 13:36 | P.PN ---
Subjective Progress Note Date: 07/02/21 Acute COPD exacerbation and acute on chronic CHF with respiratory dysfunction Patient is a 81-year-old female with a known history of hypertension, hyperlipidemia, asthma/COPD on home oxygen at 3 L 24 x 7, history of PE, parotiditis, obstructive sleep apnea on CPAP, varicose veins in the bilateral lower extremities, hypothyroidism and other multiple medical problems and recent history of bowel obstruction and Enterococcus UTI, was sent to extended care facility presented to ER with complaints of shortness of breath worsening since last night. Patient breathing status got worse this morning and was sent to ER. Otherwise patient denied any fever or chills. Does have cough with or sputum production. Patient does have chronic bilateral leg swelling and venous stasis and varicose veins. Patient is also having blisters on both legs and Lenard wrap. Denied any complaints of nausea vomiting or abdominal pain or diarrhea. No dysuria or hematuria. Chest x-ray showed CHF exacerbation suspected. EKG showed sinus bradycardia Patient had 2D echocardiogram done in October 2020 showed ejection fraction 50 to 55%. No significant valvular abnormalities were noted. Right ventricular systolic pressure is less than 35 on his disease. Laboratory showed WBC 8.7 hemoglobin 10.5 and platelets 254 Sodium 137 potassium 4.2 chloride 102 bicarb is 29 BUN 11 and creatinine 0.69 and blood sugar is 127 magnesium 1.9 troponin less than 0.012 and proBNP 801 and coronavirus PCR not detected. Patient is vaccinated against COVID-19. 06/30/2021 Patient is currently sitting in the recliner. Shortness of breath is much improved. Denies any complaints of chest pain. Still having bilateral diminished air entry and wheezing present. Bilateral lower extremity swelling is improving. Patient is having good urine output. No fever no chills. No cough or sputum production. No nausea vomiting abdominal pain or diarrhea. Patient has been: IV Lasix 40 mg every 12 and IV steroids and duo nebs. Pulmonary is on board. Laboratory showed WBC 11.4 hemoglobin 11.4 and platelets 246 BUN 14 and creatinine 0.8 and blood sugar is 224 and TSH level is 0.748 07/01/2021 Patient is currently in the recliner. Breathing status is better today. Still having chest tightness and expiratory wheezing and scattered rhonchi present. Patient has been afebrile. Continue IV steroids and also IV diuretics. Leg swelling is better. Patient has been afebrile. No cough or sputum production. No headache or dizziness or lightheadedness. Currently requiring 4 L oxygen via nasal cannula. Laboratory data showed WBC 18.75 hemoglobin 12.3 and platelets 354 BUN 19 and creatinine 0.72 and blood sugar is 163. Pulmonary is on board. 07/02/2021 Patient evaluated tracing the recliner, she states that her breathing is overall improving. She still has a coarse congested cough and is on subcu oxygen sat uration 96%. She does wear 3 L normally. Plan is to return to [facility] once medically stable. The patient a white count of 13.01. CO2 33. Blood sugars in the 200s, patient was changed to oral steroids today. Blood pressure was elevated today 199/99, patient is on Coreg which was increased, oral hydralazine. We are pending a recheck. Bilateral lower extremities are edematous and weeping, wrapped with kerlex. Change daily, keep elevated while sitting. Pt does state that overall the swelling in her legs is improving. Current medications reviewed. Constitutional: Denied any fatigue denied any fever. Cardio vascular: denied any chest pain, palpitations Gastrointestinal denied any nausea vomiting Pulmonary: Denied any shortness of breath cough Neurologic denied any new focal deficits All inpatient medications were reviewed and appropriate changes in these medicat ions as dictated in the interval history and assessment and plan. PHYSICAL EXAMINATION: GENERAL: The patient is alert and oriented x3, not in any acute distress. Well developed, well nourished. HEENT: Pupils are round and equally reacting to light. EOMI. No scleral icterus. No conjunctival pallor. Normocephalic, atraumatic. No pharyngeal erythema. No thyromegaly. CARDIOVASCULAR: S1 and S2 present. No murmurs, rubs, or gallops. PULMONARY: Chest is clear to auscultation, no wheezing or crackles. ABDOMEN: Soft, nontender, nondistended, normoactive bowel sounds. No palpable organomegaly. MUSCULOSKELETAL: No joint swelling or deformity. EXTREMITIES: No cyanosis, clubbing, or pedal edema. NEUROLOGICAL: Gross neurological examination did not reveal any focal deficits. SKIN: No rashes. Assessment and plan Assessment Shortness of breath secondary to acute COPD exacerbation Acute on chronic CHF with diastolic dysfunction, EF 50-55% Chronic hypoxic respiratory failure on oxygen at 3 L via nasal cannula. Recent admission with bowel obstruction and discharged to [facility]. Hypertension Hyperlipidemia GERD History of basal cell skin cancer status post resection Rheumatoid arthritis Obstructive sleep apnea on CPAP Obesity with BMI 37.6 Hypothyroidism History of diverticulosis Anxiety Chronic swelling of the bilateral lower extremities, venous stasis and varicose veins. Previous history of smoking DVT prophylaxis with heparin subcu Plan: Patient will be continued on oxygen supplementation and continue with IV steroids and Symbicort. Continue duo nebs. Continue with IV Lasix 40 mg twice daily. Change to PO Lasix in the morning. Monitor renal function closely. Repeat chest x-ray showed cardiomegaly. Pulmonary is on board. follow-up closely. Prognosis guarded with multiple medical problems and comorbid conditions. Patient should be cleared for discharge back to [facility] tomorrow. Objective - Vital Signs Vital signs: Vital Signs Temp 98.1 F 07/02/21 07:00 Pulse 77 07/02/21 07:00 Resp 20 07/02/21 07:00 BP 199/99 07/02/21 07:00 Pulse Ox 96 07/02/21 07:00 Intake & Output 07/01/21 07/02/21 07/02/21 18:59 06:59 18:59 Intake Total 436 Output Total 1850 925 0 Balance -1414 -925 0 Weight 105 kg Intake: Oral 436 Output: Urine 1850 925 Emesis 0 0 Other: Voiding Method Diaper Diaper Diaper External Catheter External Catheter External Catheter # Voids 1 # Bowel Movements 0 0 - Labs CBC & Chem 7: 07/02/21 05:31 07/02/21 05:31 Labs: Abnormal Lab Results - Last 24 Hours (Table) 07/01/21 07/01/21 07/01/21 Range/Units 06:28 12:19 17:00 WBC 18.75 H (4.50-10.00) X 10*3/uL MCHC 31.0 L (32.0-37.0) g/dL Immature Gran # 0.18 H (0.00-0.04) X 10*3/uL Neutrophils # 15.53 H (1.80-7.70) X 10*3/uL Monocytes # 1.52 H (0.20-1.00) X 10*3/uL Eosinophils # 0 L (0.04-0.35) X 10*3/uL Chloride (98-107) mmol/L Carbon Dioxide (22-30) mmol/L BUN (7-17) mg/dL Glucose (74-99) mg/dL POC Glucose (mg/dL) 188 H 236 H (75-99) mg/dL 07/01/21 07/02/21 07/02/21 Range/Units 20:17 05:31 07:26 WBC (4.50-10.00) X 10*3/uL MCHC (32.0-37.0) g/dL Immature Gran # (0.00-0.04) X 10*3/uL Neutrophils # (1.80-7.70) X 10*3/uL Monocytes # (0.20-1.00) X 10*3/uL Eosinophils # (0.04-0.35) X 10*3/uL Chloride 97 L (98-107) mmol/L Carbon Dioxide 33 H (22-30) mmol/L BUN 22 H (7-17) mg/dL Glucose 234 H (74-99) mg/dL POC Glucose (mg/dL) 266 H 217 H (75-99) mg/dL Microbiology - Last 24 Hours (Table) 06/29/21 13:09 Blood Culture Gram Stain - Preliminary Blood Blood Culture - Preliminary Staphylococcus epidermidis Coagulase Negative Staph Assessment and Plan Time with Patient: Greater than 30
[2021-07-02 17:52] LABS: Glucose,Whole Blood 207 mg/dL (75-99)
[2021-07-02 20:21] LABS: Glucose,Whole Blood 199 mg/dL (75-99)
[2021-07-02] MEDS: ATORVASTATIN 20 MG TAB PO SCH (20:26)
[2021-07-02] MEDS: MIRTAZAPINE 15 MG TAB PO SCH (20:26)
[2021-07-03] MEDS: FAMOTIDINE 20 MG TAB PO SCH (05:16)
[2021-07-03] MEDS: LEVOTHYROXINE 125 MCG TAB PO SCH (05:16)
[2021-07-03] MEDS: SYMBICORT 160-4.5 MCG INHALER INHALATION SCH (07:26)
[2021-07-03] MEDS: IPRATROPIUM-ALBUTEROL 3 ML NEB INHALATION PRN ×3 (07:26→15:31)
[2021-07-03] MEDS: carvediloL 12.5 MG TAB PO SCH (08:06)
[2021-07-03] MEDS: HEPARIN SODIUM,PORCINE/PF 5,000 UNIT/0.5 ML SYRINGE SQ SCH ×2 (08:06→16:04)
[2021-07-03] MEDS: hydrALAZINE HCL 25 MG TAB PO SCH ×2 (08:07→16:04)
[2021-07-03] MEDS: predniSONE 10 MG TAB PO SCH (08:07)
[2021-07-03] MEDS: HYDROcodone/APAP 7.5-325MG 1 EACH TAB PO SCH ×3 (08:07→18:06)
[2021-07-03] MEDS: DOCUSATE 100 MG CAP PO SCH (08:08)
[2021-07-03 08:12] LABS: Glucose,Whole Blood 140 mg/dL (75-99)
[2021-07-03] MEDS: INSULIN ASPART (NovoLOG) 100 UNIT/ML VIAL SQ SCH ×3 (08:24→18:06)
[2021-07-03] MEDS ORDERED: FUROSEMIDE 40 MG TAB PO SCH (09:00)
[2021-07-03 11:21] LABS: Basophils # (A) 0.02 X 10*3/uL (0.00-0.10); Basophils % (A) 0.2 %; Eosinophils # (A) 0.01 X 10*3/uL (0.04-0.35); Eosinophils % (A) 0.1 %; HCT 40.2 % (37.2-46.3); HGB 12.1 g/dL (12.0-15.0); Lymphocytes # (A) 1.94 X 10*3/uL (0.90-5.00); Lymphocytes % (A) 14.6 %; MCH 29.4 pg (27.0-32.0); MCHC 30.1 g/dL (32.0-37.0); MCV 97.8 fL (80.0-97.0); Mean Platelet Volume 10.3 fL (9.5-12.2); Monocytes # (A) 1.54 X 10*3/uL (0.20-1.00); Monocytes % (A) 11.6 %; Neutrophils % (A) 72.1 %; Platelet Count 289 X 10*3/uL (140-440); RBC 4.11 X 10*6/uL (4.10-5.20); RDW 14.4 % (11.5-14.5); WBC 13.29 X 10*3/uL (4.50-10.00)
--- NOTE | 2021-07-03 11:49 | XR ---
EXAMINATION TYPE: XR chest 2V DATE OF EXAM: 07/03/2021 COMPARISON: 07/01/2021 TECHNIQUE: PA and lateral views submitted. HISTORY: Shortness of FINDINGS: Heart size normal with bilateral subsegmental consolidation. Perihilar interstitial changes are seen. Biapical pleural thickening. No pneumothorax. Small pleural effusions. Atherosclerotic change of aor ta and degenerative changes spine. Surgical clips in the abdomen. IMPRESSION: 1. Correlate for mild CHF otherwise consider interstitial pneumonia.
--- NOTE | 2021-07-03 12:15 | P.PN ---
Subjective Progress Note Date: 07/03/21 Principal diagnosis: Acute exacerbation of diastolic congestive heart failure This a very pleasant 81-year-old female patient who follows with Dr. Pearson is her primary care provider. She has a history of chronic obstructive pulmonary disease/asthma, hyperlipidemia, hypertension, osteoarthritis, rheumatoid arthritis, pulmonary embolism, obstructive sleep apnea retained on CPAP, hypothyroidism, melanoma resected from her back, chronic diastolic congestive heart failure, chronic lower extremity edema with cellulitis and open wounds at times. Her last admission she had been residing at [facility] on [facility]. Yesterday she developed increasing shortness of breath cough and congestion and was brought here to the emergency room. Chest x-ray revealed evidence of congestive heart failure with mild to moderate central vascular congestion and small bilateral effusions. Echocardiogram from earlier this year revealed preserved left ventricular systolic function with ejection fraction 50-55%. No significant valvular heart disease. EKG with sinus bradycardia. He can't 11.4. Hemoglobin 11.4. Sodium 137. Potassium 4.2. Creatinine 0.69. Glucose 237. Troponin negative times one. ProBNP 801. TSH 0.748. Currently virus not detected. She is seen today in consultation on the regular medical floor. She is currently sitting up in a chair at the bedside. Awake and alert in no acute distress. Maintaining O2 saturations in the 90s on 3 L/m per nasal cannula. She does have some lower extremity edema. Dressings dry and intact. Initial blood cultures revealing gram-positive cocci in clusters. She's been initiated on vancomycin. She's continued on IV Solu-Medrol, IV diuretics, Symbicort, DuoNeb inhalations. 07/01/2021 patient is feeling slightly better compared to yesterday. Chest x- ray shows clear to megaly and improvement in the volume status and the interstitial infiltrates. The patient continues to be on diuretics. She is a negative fluid balance. Blood work today still pending for now. Meanwhile, the patient is on Lasix 40 g IV every 12 hours. She remains on bronchodilators. She remains on steroids. She is less bronchospastic compared to yesterday. The blood cultures obtained earlier box turner to be staph epidermidis, likely contami nant. On 07/02/2001 patient seen in follow-up on medical surgical floor, she is currently resting comfortably in the recliner, she is currently on 4 L of oxygen pulse ox is 97%, she continues on Lasix 40 mg every 12 hours, she is in -2.3 L net fluid balance. She still has a mildly congested cough, oral her breathing is improving. She has had no fever or chills, her blood cultures resulted with Staphylococcus epidermidis related to a skin contaminant. Another set of blood cultures drawn on the same day showed no growth. There is labs have been reviewed, white blood cell, 13.1 improving, hemoglobin is 12.3, sodium is 137, potassium is 3.7, chloride is 97, CO2 33, B1 is 22 creatinine 0.73. Patient has had elevated blood pressures, and she developed hyperglycemia although patient does not have history of diabetes at baseline. This is likely steroid-induced hyperglycemia and we will adjust her steroid dose, and anti-hypertensives. Otherwise clinically she's been stable, we will consider her for discharge likely tomorrow. The patient is seen today 07/03/2021 in follow-up on the regular medical floor. She is currently sitting up in a chair at the bedside. Awake and alert in no acute distress. Feeling back to her baseline as far as her pulmonary status is concerned. She does have home oxygen at 4 L/m per nasal cannula. Chest x-ray shows evidence of mild CHF. White count 13.2. Hemoglobin 12.1. Glucose 140. She is continued on Symbicort, DuoNeb inhalations, prednisone. Heparin for DVT prophylaxis. Remains on oral diuretics. Objective - Vital Signs Vital signs: Vital Signs Temp 98.1 F 07/03/21 07:00 Pulse 84 07/03/21 10:56 Resp 18 07/03/21 08:00 BP 166/81 07/03/21 07:00 Pulse Ox 96 07/03/21 07:00 Intake & Output 07/02/21 07/03/21 07/03/21 18:59 06:59 18:59 Intake Total 360 300 Output Total 1 400 1 Balance 359 -400 299 Weight 104.6 kg Intake: Oral 360 300 Output: Urine 400 Stool 1 1 Emesis 0 Other: Voiding Method Diaper Diaper Diaper External Catheter External Catheter External Catheter # Voids 1 3 1 # Bowel Movements 0 - Exam GENERAL EXAM: Alert, very pleasant, 81-year-old female patient, on 4 L of oxygen with pulse ox 96%, sitting up in the recliner., comfortable in no apparent distress. HEAD: Normocephalic/atraumatic. EYES: Normal reaction of pupils, equal size. Conjunctiva pink, sclera white. NOSE: Clear with pink turbinates. THROAT: No erythema or exudates. NECK: No masses, no JVD, no thyroid enlargement, no adenopathy. CHEST: No chest wall deformity. Symmetrical expansion. LUNGS: Equal air entry with mild end expiratory wheezing, diminished CVS: Regular rate and rhythm, normal S1 and S2, no gallops, no murmurs, no rubs ABDOMEN: Soft, nontender. No hepatosplenomegaly, normal bowel sounds, no guarding or rigidity. EXTREMITIES: No clubbing, 1+ lower extremity edema, with possible wounds although the patient states she does not have any draining wounds on her lower extremities, and these areas are covered by bandages. no cyanosis, 2+ pulses and upper and lower extremities. MUSCULOSKELETAL: Muscle strength and tone normal. SPINE: No scoliosis or deformity SKIN: No rashes CENTRAL NERVOUS SYSTEM: No focal deficits, tone is normal in all 4 extremities. PSYCHIATRIC: Alert and oriented -3. Appropriate affect. Intact judgment and i nsight. - Labs CBC & Chem 7: 07/03/21 07:05 07/02/21 05:31 Labs: Abnormal Lab Results - Last 24 Hours (Table) 07/02/21 07/02/21 07/02/21 Range/Units 12:07 17:47 20:19 WBC (4.50-10.00) X 10*3/uL MCV (80.0-97.0) fL MCHC (32.0-37.0) g/dL Absolute Nucleated RBC (0.00-0.00) X 10*3/uL Immature Gran # (0.00-0.04) X 10*3/uL Neutrophils # (1.80-7.70) X 10*3/uL Monocytes # (0.20-1.00) X 10*3/uL Eosinophils # (0.04-0.35) X 10*3/uL NRBC/100 WBC Diff (0.0-0.0) /100 WBCS POC Glucose (mg/dL) 160 H 207 H 199 H (75-99) mg/dL 07/03/21 07/03/21 Range/Units 07:05 07:24 WBC 13.29 H (4.50-10.00) X 10*3/uL MCV 97.8 H (80.0-97.0) fL MCHC 30.1 L (32.0-37.0) g/dL Absolute Nucleated RBC 0.02 H (0.00-0.00) X 10*3/uL Immature Gran # 0.18 H (0.00-0.04) X 10*3/uL Neutrophils # 9.60 H (1.80-7.70) X 10*3/uL Monocytes # 1.54 H (0.20-1.00) X 10*3/uL Eosinophils # 0.01 L (0.04-0.35) X 10*3/uL NRBC/100 WBC Diff 0.2 H (0.0-0.0) /100 WBCS POC Glucose (mg/dL) 140 H (75-99) mg/dL Microbiology - Last 24 Hours (Table) 06/29/21 13:09 Blood Culture Gram Stain - Final Blood Blood Culture - Final Staphylococcus epidermidis Coagulase Negative Staph Assessment and Plan Assessment: 1 Acute on chronic hypoxemic respiratory failure secondary to an acute exacerbation of diastolic congestive heart failure 2 Bacteremia secondary to grams positive cocci in clusters considered contaminant, staph epidermidis 3 Acute exacerbation of COPD and the patient has chronic dyspnea has been vaccinated for COVID-19 4 Rheumatoid arthritis 5 Obstructive sleep apnea nontolerant to CPAP therapy 6 History of skin cancer in the form of squamous cell carcinoma and basal cell carcinoma and melanoma, all resected 7 History of diverticular disease 8 Gastroesophageal reflux disease 9 Remote history of pulmonary embolism, in a postoperative setting 10 Hypertension 11 Hypothyroidism 12 Chronic back pain has been on Turpin 7.5 and she'll be given 1 tablet every 24 hours on an as-needed basis for ongoing pain. 13 Coronary artery disease with nonocclusive disease based on a cardiac catheterization from 2018 with mild disease involving the LAD, preserved LV function Plan: The patient was seen and evaluated by Dr. Pearson Chest x-ray, labs reviewed Stable for transfer to [facility] from the pulmonary standpoint Has home oxygen at 4 L Continue Symbicort, DuoNeb inhalations, prednisone taper Follow-up in the office in 1-2 weeks' time I, the cosigning physician, performed a history & physical examination of the patient. Lungs sounds with end expiratory wheeze, diminished. Maintaining good O2 saturations in the 90s on 4 L/m per nasal cannula. I discussed the assessment and plan of care with my nurse practitioner, Lashae Blackburn. I attest to the above note as dictated by her.
[2021-07-03 12:23] LABS: Glucose,Whole Blood 163 mg/dL (75-99)
[2021-07-03 13:10] LABS: Anion Gap 14.7 mmol/L (4.00-12.00); BUN/Creat Ratio 27.44 Ratio (12.00-20.00); Blood Urea Nitrogen 24.7 mg/dL (9.0-27.0); Calcium 8.8 mg/dL (8.7-10.3); Carbon Dioxide 28.3 mmol/L (21.6-31.8); Non-African American GFR(CKD) 59.5 (60.0-200.0)
--- NOTE | 2021-07-03 13:19 | P.DS ---
Providers Date of admission: 07/02/21 09:00 Attending physician: Victoria Khan Consults: 06/29/21 23:31 Consult Physician Routine Consulting Provider: Ying Pearson Consult Reason/Comments: COPD exacerbation Do you want consulting provider notified?: Yes, Notify in am Primary care physician: Ying Pearson Hospital Course: Final Diagnosis Shortness of breath secondary to acute COPD exacerbation Acute on chronic CHF with diastolic dysfunction, EF 50-55% Chronic hypoxic respiratory failure on oxygen at 3 L via nasal cannula. Recent admission with bowel obstruction and discharged to [facility]. Hypertension Hyperlipidemia GERD History of basal cell skin cancer status post resection Rheumatoid arthritis Obstructive sleep apnea on CPAP Obesity with BMI 37.6 Hypothyroidism History of diverticulosis Anxiety Chronic swelling of the bilateral lower extremities, venous stasis and varicose veins. Previous history of smoking Discharge Disposition Patient is cleared medically and from pulmonary services for discharge back to [facility] on 4 L nasal cannula. Continue with DuoNeb's and Symbicort and continue with steroid taper. Repeat CBC and CMP in 2-3 days. Hospital course This is a pleasant 81-year-old female who presented to the from [facility] with a known history of hypertension, hyperlipidemia, asthma COPD on home oxygen at 3 L /, history of PE, parotiditis, obstructive sleep apnea on CPAP, hypothyro idism as well as multiple medical problems. Patient also had a recent history of bowel obstruction and enterococcus UTI was discharged to [facility]. Patient presented to the hospital with complaints of shortness of breath worsening since last night. She denies any fever or chills. There is a cough with sputum production. Patient does have chronic bilateral leg swelling and venous stasis and varicose veins. Patient also has blisters on both legs and they are Lenard wrapped. Patient denied any nausea vomiting diarrhea or abdominal pain. There is no dysuria or hematuria. Chest x-ray on admission was suspicious for a CHF exacerbation, EKG shows sinus bradycardia. Recent echocardiogram done in October 2020 showed an EF of 50-55%. Patient was counseled by pulmonary services who also covers as her primary care. She was treated with IV Lasix 40 mg every 12 hours and was transitioned back to oral Lasix on the . Patient is vaccinated against COVID-19. Covid PCR is negative this admission. Blood culture was positive for staph epidermidis and coagulase negative staph which is most likely contaminant as a second blood culture was taken the same time which is negative. Labs on admission showed a white count initially of 8.7, peaked at 18.75 and is trending down to 13.2. TSH was within normal limits at 0.748, glucose was elevated in the 200s, improved with decreasing steroids. Patient has remained afebrile this admission. Blood pressure was elevated in the 190s systolic at maximum, she is resumed on her home medications for discharge. 07/03/2021 Patient is evaluated today sitting up in the chair. She states that her breathing is much improved. At baseline she has shortness of breath, even with mild activity. She is on 4 L nasal cannula. She does have some pitting to her lower extremities, more so on the left than the right. There is still LENARD wraps over the blisters on her lower extremities which have popped open these can be just treated with barrier cream and Lenard wrap. Repeat chest oxygenation correlate for mild CHF. Patient will continue on oral Lasix 40 mg by mouth daily which is her home dose. Lungs are clearing, there is still some wheezing noted to the right posterior base. S1-S2 is auscultated. Abdomen is soft nontender. Focal neurological examination is negative. Patient can be discharged back to [facility] today and will follow-up with Dr. Pearson who is her PCP 1-2 weeks. Thank you for allowing us to participate in the care of this patient. Patient Condition at Discharge: Fair Plan - Discharge Summary Discharge Rx Participant: No New Discharge Prescriptions: New hydrALAZINE HCL [Apresoline] 25 mg PO TID tab Furosemide [Lasix] 40 mg PO DAILY tab methylPREDNISolone Dose Pack [Medrol Dose Pack] See Taper PO DIRECTED #8 tab predniSONE 30 mg PO DAILY tab Continue Levothyroxine Sodium [Synthroid] 125 mcg PO DAILY@0600 amLODIPine [Norvasc] 10 mg PO DAILY@0900 Albuterol Sulfate [Albuterol Sulfate Hfa] 2 puff PO RT-Q6H PRN PRN Reason: Shortness Of Breath Sertraline [Zoloft] 50 mg PO HS@2100 Magnesium Hydroxide [Milk of Magnesia] 2,400 mg PO Q72H PRN PRN Reason: Constipation Acetaminophen [Tylenol 8 Hour] 650 mg PO Q6H PRN PRN Reason: Pain Spironolactone 50 mg PO DAILY@0900 carvediloL [Coreg*] 12.5 mg PO BID@899,2099 Budesonide-Formot 160-4.5 Mcg [Symbicort 160-4.5 Mcg Inhaler] 2 puff INHALATION RT-BID@899,2099 ALPRAZolam [Xanax] 0.5 mg PO DAILY PRN #3 tab PRN Reason: Anxiety cloNIDine HCL [Catapres] 0.3 mg PO BID@899,2099 Ipratropium-Albuterol Nebulize [Duoneb 0.5 mg-3 mg/3 ml Soln] 3 ml INHALATION RT-Q4H PRN PRN Reason: Shortness Of Breath diphenhydrAMINE [Benadryl] 25 mg PO BID@899,2099 Atorvastatin [Lipitor] 20 mg PO HS@2099 Mirtazapine [Remeron] 15 mg PO HS@2099 Furosemide [Lasix] 40 mg PO DAILY@06 Famotidine [Pepcid] 20 mg PO DAILY@599 Docusate [Colace] 100 mg PO BID@899,2099 Benzocaine/Menthol Lozeng [Cepacol lozenge] 1 lozenge MUCOUS MEM Q4HR PRN PRN Reason: Sore Throat Changed HYDROcodone/APAP 7.5-325MG [Ceres 7.5-325] 1 tab PO QID #4 tab Discontinued hydrALAZINE HCL [Apresoline] 75 mg PO TID@0600,1400,2200 Discharge Medication List Levothyroxine Sodium [Synthroid] 125 mcg PO DAILY@0610/18/20 [History] amLODIPine [Norvasc] 10 mg PO DAILY@89910/18/20 [History] Albuterol Sulfate [Albuterol Sulfate Hfa] 2 puff PO RT-Q6H PRN 06/03/21 [History] Sertraline [Zoloft] 50 mg PO HS@209906/03/21 [History] cloNIDine HCL [Catapres] 0.3 mg PO BID@899,209906/03/21 [History] Acetaminophen [Tylenol 8 Hour] 650 mg PO Q6H PRN 06/29/21 [History] Atorvastatin [Lipitor] 20 mg PO HS@209906/29/21 [History] Benzocaine/Menthol Lozeng [Cepacol lozenge] 1 lozenge MUCOUS MEM Q4HR PRN 06/29/21 [History] Budesonide-Formot 160-4.5 Mcg [Symbicort 160-4.5 Mcg Inhaler] 2 puff INHALATION RT-BID@899,209906/29/21 [History] Docusate [Colace] 100 mg PO BID@899,209906/29/21 [History] Famotidine [Pepcid] 20 mg PO DAILY@59906/29/21 [History] Furosemide [Lasix] 40 mg PO DAILY@59906/29/21 [History] Ipratropium-Albuterol Nebulize [Duoneb 0.5 mg-3 mg/3 ml Soln] 3 ml INHALATION RT-Q4H PRN 06/29/21 [History] Magnesium Hydroxide [Milk of Magnesia] 2,400 mg PO Q72H PRN 06/29/21 [History] Mirtazapine [Remeron] 15 mg PO HS@209906/29/21 [History] Spironolactone 50 mg PO DAILY@89906/29/21 [History] carvediloL [Coreg*] 12.5 mg PO BID@899,209906/29/21 [History] diphenhydrAMINE [Benadryl] 25 mg PO BID@899,209906/29/21 [History] ALPRAZolam [Xanax] 0.5 mg PO DAILY PRN #3 tab 07/03/21 [Rx] Furosemide [Lasix] 40 mg PO DAILY tab 07/03/21 [Rx] HYDROcodone/APAP 7.5-325MG [Ceres 7.5-325] 1 tab PO QID #4 tab 07/03/21 [Rx] hydrALAZINE HCL [Apresoline] 25 mg PO TID tab 07/03/21 [Rx] methylPREDNISolone Dose Pack [Medrol Dose Pack] See Taper PO DIRECTED #8 tab 07/03/21 [Rx] predniSONE 30 mg PO DAILY tab 07/03/21 [Rx] Follow up Appointment(s)/Referral(s): Ying Pearson MD [Primary Care Provider] - 1 Week Ambulatory/Diagnostic Orders: Basic Metabolic Panel [LAB.AMB] Time Frame: 3 Days, Location: None Selected Complete Blood Count w/diff [LAB.AMB] Time Frame: 3 Days, Location: None Selected Discharge Disposition: TRANSFER TO SNF/ECF
[2021-07-03 14:16] VITALS: BP 183/76; RESP 20; TEMP 98
[2021-07-03 15:47] VITALS: PULSE 84
[2021-07-03 17:34] LABS: Glucose,Whole Blood 154 mg/dL (75-99)
== END 2021-07-03 18:15 | DRG 190 ==
LOC: EC 12:44 → SUPCPDRO 12:44 → 1SOBS 15:14 → 6NMEDSUR 20:49 → OBSVTOIN 07-02 09:00
PROVIDERS: ADMIT Hospitalist; ATTEND Hospitalist
DX: J44.1 Chronic obstructive pulmonary disease with (acute) exacerbation (principal); I50.33 Acute on chronic diastolic (congestive) heart failure; J96.21 Acute and chronic respiratory failure with hypoxia; R78.81 Bacteremia; I11.0 Hypertensive heart disease with heart failure; I25.10 Atherosclerotic heart disease of native coronary artery without angina pectoris; Z20.822 Contact with and (suspected) exposure to COVID-19; B96.89 Other specified bacterial agents as the cause of diseases classified elsewhere; E03.9 Hypothyroidism, unspecified; E66.9 Obesity, unspecified; E78.5 Hyperlipidemia, unspecified; M06.9 Rheumatoid arthritis, unspecified; F41.9 Anxiety disorder, unspecified; I83.93 Asymptomatic varicose veins of bilateral lower extremities; T38.0X5A Adverse effect of glucocorticoids and synthetic analogues, initial encounter; G47.33 Obstructive sleep apnea (adult) (pediatric); G89.29 Other chronic pain; M54.9 Dorsalgia, unspecified; R00.1 Bradycardia, unspecified; K57.90 Diverticulosis of intestine, part unspecified, without perforation or abscess without bleeding; E11.65 Type 2 diabetes mellitus with hyperglycemia; I87.8 Other specified disorders of veins; K21.9 Gastro-esophageal reflux disease without esophagitis; Z68.37 Body mass index [BMI] 37.0-37.9, adult; Z87.891 Personal history of nicotine dependence; Z79.51 Long term (current) use of inhaled steroids; Z79.890 Hormone replacement therapy; Z79.899 Other long term (current) drug therapy; Z80.1 Family history of malignant neoplasm of trachea, bronchus and lung; Z85.820 Personal history of malignant melanoma of skin; Z86.711 Personal history of pulmonary embolism; Z90.710 Acquired absence of both cervix and uterus; Z99.81 Dependence on supplemental oxygen; Z88.1 Allergy status to other antibiotic agents; Z88.5 Allergy status to narcotic agent; Z91.048 Other nonmedicinal substance allergy status; Z87.19 Personal history of other diseases of the digestive system; Z68.36 Body mass index [BMI] 36.0-36.9, adult; Z87.440 Personal history of urinary (tract) infections; X58.XXXA Exposure to other specified factors, initial encounter; Z89.021 Acquired absence of right finger(s); Z88.6 Allergy status to analgesic agent; Z88.4 Allergy status to anesthetic agent; Z88.2 Allergy status to sulfonamides
CPT/HCPCS: 36415; 71045; 71046; 80048; 80053; 83605; 83735; 83880; 84443; 84484; 85025; 85610; 85730; 87040; 87635; 93005; 94640; 94760; 96374; 99285

== ENCOUNTER 2021-07-10 21:58 | Inpatient (IN) | payer MEDICARE ==
[2021-07-10] MEDS ORDERED: SODIUM CHLORIDE 0.9% 1,000 ML IV STA (22:20)
[2021-07-10 22:43] LABS: Basophils % (A) 0 %; Eosinophils # (A) 0.2 k/uL (0-0.7); Eosinophils % (A) 2 %; HCT 35.7 % (34.0-46.0); HGB 11.8 gm/dL (11.4-16.0); Lymphocytes # (A) 2.1 k/uL (1.0-4.8); Lymphocytes % (A) 15 %; MCH 30.3 pg (25.0-35.0); MCHC 33.1 g/dL (31.0-37.0); Mean Platelet Volume 7.5; Monocytes # (A) 0.6 k/uL (0-1.0); Monocytes % (A) 5 %; Neutrophils # (A) 10.5 k/uL (1.3-7.7); Neutrophils % (A) 77 %; Platelet Count 312 k/uL (150-450); RDW 14.4 % (11.5-15.5); WBC 13.7 k/uL (3.8-10.6)
[2021-07-10 22:52] LABS: Albumin 3.6 g/dL (3.5-5.0); Magnesium 2.1 mg/dL (1.6-2.3); Total Bilirubin 0.3 mg/dL (0.2-1.3); Total Protein 6.1 g/dL (6.3-8.2)
[2021-07-10 23:01] LABS: INR 0.9 (<1.2); Prothrombin Time 9.9 sec (9.0-12.0)
--- NOTE | 2021-07-10 23:01 | XR ---
EXAMINATION TYPE: XR chest 2V DATE OF EXAM: 07/10/2021 COMPARISON: 07/03/2021 HISTORY: Chest pain TECHNIQUE: 2 views FINDINGS: Heart is enlarged. There is no heart failure. Costophrenic angles show no sign of fluid. Th oracic aorta is atheromatous. Bony thorax is intact. IMPRESSION: No active cardiopulmonary disease. Cardiomegaly. No adverse change.
[2021-07-10 23:05] LABS: MCV 91.6 fL (80.0-100.0)
--- NOTE | 2021-07-10 23:08 | ED ---
General Adult HPI - General Chief complaint: Chest Pain Stated complaint: Chest Pain Time Seen by Provider: 07/10/21 22:19 Source: patient, EMS Mode of arrival: EMS Limitations: no limitations - History of Present Illness Initial comments: Sissy is a pleasant 81-year-old female who presents to the emergency department today via EMS for evaluation of 7 hours of burning epigastric discomfort that radiates up her esophagus to her throat and an episode of feeling like she could not catch her breath. Patient reports the discomfort began at 3 PM, persisted throughout the evening, it wasn't severe enough for her to call the ambulance however she developed some sensation that she couldn't catch her breath and she felt "breathy" which prompted her call EMS. Patient was wearing her baseline 4 L nasal cannula. She reports she's been compliant with this. She is vaccinated for COVID-19. She has had recent hospitalizations for COPD exacerbation and CH F. - Related Data Home Medications Medication Instructions Recorded Confirmed Levothyroxine Sodium [Synthroid] 125 mcg PO DAILY 10/18/20 07/10/21 amLODIPine [Norvasc] 10 mg PO DAILY 10/18/20 07/10/21 Albuterol Sulfate [Albuterol 2 puff PO RT-Q6H PRN 06/03/21 07/10/21 Sulfate Hfa] Sertraline [Zoloft] 50 mg PO HS 06/03/21 07/10/21 cloNIDine HCL [Catapres] 0.3 mg PO BID 06/03/21 07/10/21 Docusate [Colace] 100 mg PO DAILY 06/29/21 07/10/21 Furosemide [Lasix] 40 mg PO DAILY 06/29/21 07/10/21 Mirtazapine [Remeron] 15 mg PO HS 06/29/21 07/10/21 Spironolactone 50 mg PO DAILY 06/29/21 07/10/21 carvediloL [Coreg*] 12.5 mg PO BID 06/29/21 07/10/21 Clotrimazole/Betamethasone Dip 1 applic TOPICAL BID 07/10/21 07/10/21 [Lotrisone Cream] Elderberry Fruit and Flower [Black 1,150 mg PO BID 07/10/21 07/10/21 Elderberry 575 mg Cap] Fluticasone/Salmeterol [Advair Hfa 2 puff INHALATION RT-BID 07/10/21 07/10/21 115-21 Mcg Inhaler] HYDROcodone/APAP 7.5-325MG [[place] 1 tab PO QID PRN 07/10/21 07/10/21 7.5-325] L.acidoph,Paracasei, B.lactis 1 cap PO DAILY 07/10/21 07/10/21 [Probiotic] Multivit-Min/Iron/Folic/Lutein 1 tab PO DAILY 07/10/21 07/10/21 [Centrum Silver Women Tablet] Simvastatin 40 mg PO HS 07/10/21 07/10/21 Previous Rx's Medication Instructions Recorded hydrALAZINE HCL [Apresoline] 25 mg PO TID tab 07/03/21 Allergies Allergy/AdvReac Type Severity Reaction Status Date / Time adhesive Allergy SKIN Verified 07/10/21 23:23 REDDENS & BLISTERS- PAPER TAPE OKAY azithromycin [From Zithromax] Allergy Nausea & Verified 07/10/21 23:23 Vomiting meperidine HCl [From Demerol] Allergy Nausea & Verified 07/10/21 23:23 Vomiting morphine Allergy Nausea & Verified 07/10/21 23:23 Vomiting Sulfa (Sulfonamide Allergy Nausea & Verified 07/10/21 23:23 Antibiotics) Vomiting tree and shrub pollen Allergy Cough Verified 07/10/21 23:23 aspirin AdvReac STOMACH Verified 07/10/21 23:23 HERRERA anesthesia Allergy facial/arms/hands Uncoded 06/17/21 19:47 swelling,skin"turns beet red", nausea DISSOLVING SUTURES Allergy INFECTION Uncoded 06/17/21 19:47 Review of Systems ROS Statement: Those systems with pertinent positive or pertinent negative responses have been documented in the HPI. ROS Other: All systems not noted in ROS Statement are negative. Past Medical History Past Medical History: Asthma, Cancer, Heart Failure, COPD, GERD/Reflux, Hyperlipidemia, Hypertension, Osteoarthritis (OA), Pneumonia, Pulmonary Embolus (PE), Rheumatoid Arthritis (RA), Sleep Apnea/CPAP/BIPAP, Thyroid Disorder Additional Past Medical History / Comment(s): COPD/asthma, chronic cough, hypothyroidism, history of basal cell carcinoma of the skin resected, history of melanoma of the skin involving the back, resected, history of diverticulosis/diverticulitis, history of fibrocystic disease, obstructive sleep apnea can sleep with the CPAP, varicose veins in lower extremities, hypothyroidism History of Any Multi-Drug Resistant Organisms: None Reported Past Surgical History: Bladder Surgery, Bowel Resection, Cholecystectomy, Heart Catheterization, Hernia Repair, Hysterectomy, Joint Replacement, Orthopedic Surgery Additional Past Surgical History / Comment(s): LEFT KNEE REPLACED, PARTIAL THYROIDECTOMY,HIATAL HERNIA REPAIR 07/2013, ABDOMINAL HERNIA REPAIR,MULTIPLE SKIN LESIONS-PT STATED HAS HAS BASAL,SQUAMOUS AND MELANOMA SKIN CA ( NECK,RT UPPER & LOWER THIGH,LT ARM,RT ARM, face, back-melanoma)SKIN GRAFTS TO VINOD.LEGS- LT EAR-LT MIDDLE FINGER,ACHILLES TENDON surgery. RT OVARY 1 TUBE REMOVED, SIGMOID RESECTION D/T BOWEL OBSTRUCTION,RT LITLE FINGER AMP, Past Anesthesia/Blood Transfusion Reactions: Previous Problems w/ Anesthesia, Motion Sickness, Postoperative Nausea & Vomiting (PONV) Additional Past Anesthesia/Blood Transfusion Reaction / Comment(s): STATES "HAS HAD SWELLING TO FACE,HANDS,ARMS AND SKIN TURNS "BEET RED"WITH ANESTHESIA-with IV sedation. states no problems with last surgery at [facility] 01/2017-anesthesia records on chart Past Psychological History: Anxiety Smoking Status: Former smoker Past Alcohol Use History: None Reported Past Drug Use History: None Reported - Past Family History Mother Family Medical History: Diabetes Mellitus Additional Family Medical History / Comment(s): HEART PROBLEMS Sister(s) Family Medical History: Diabetes Mellitus, Myocardial Infarction ([place]) Additional Family Medical History / Comment(s): EMPHYSEMA Father Family Medical History: Cancer Additional Family Medical History / Comment(s): LUNG CA. General Exam - General Exam Comments Initial Comments: Physical Exam GENERAL: Elderly, chronically ill appearing HENT: Normocephalic, Atraumatic. EYES: PERRL, EOMI PULMONARY: 4L NC Unlabored respirations. CARDIOVASCULAR: RRR Warm and well perfused extremities ABDOMEN: Non-distended SKIN: Chronic venous stasis : Deferred NEUROLOGIC: Alert and oriented Normal speech MUSCULOSKELETAL: Bilateral lower extremity edema PSYCHIATRIC: No SI/HI Limitations: no limitations Course Vital Signs 07/10/21 07/11/21 07/11/21 22:00 00:00 01:00 Temperature 100 F H Pulse Rate 73 71 73 Respiratory 18 18 18 Rate Blood Pressure 185/94 156/66 129/92 O2 Sat by Pulse 97 97 97 Oximetry Medical Decision Making - Lab Data Result diagrams: 07/10/21 22:33 07/10/21 22:33 Lab Results 07/10/21 07/10/21 07/10/21 Range/Units 22:33 22:33 22:33 WBC 13.7 H (3.8-10.6) k/uL RBC 3.90 (3.80-5.40) m/uL Hgb 11.8 (11.4-16.0) gm/dL Hct 35.7 (34.0-46.0) % MCV 91.6 D (80.0-100.0) fL MCH 30.3 (25.0-35.0) pg MCHC 33.1 (31.0-37.0) g/dL RDW 14.4 (11.5-15.5) % Plt Count 312 (150-450) k/uL MPV 7.5 Neutrophils % 77 % Lymphocytes % 15 % Monocytes % 5 % Eosinophils % 2 % Basophils % 0 % Neutrophils # 10.5 H (1.3-7.7) k/uL Lymphocytes # 2.1 (1.0-4.8) k/uL Monocytes # 0.6 (0-1.0) k/uL Eosinophils # 0.2 (0-0.7) k/uL Basophils # 0.0 (0-0.2) k/uL PT 9.9 (9.0-12.0) sec INR 0.9 (<1.2) APTT 21.6 L (22.0-30.0) sec Sodium (137-145) mmol/L Potassium (3.5-5.1) mmol/L Chloride (98-107) mmol/L Carbon Dioxide (22-30) mmol/L Anion Gap mmol/L BUN (7-17) mg/dL Creatinine (0.52-1.04) mg/dL Est GFR (CKD-EPI)AfAm (>60 ml/min/1.73 sqM) Est GFR (CKD-EPI)NonAf (>60 ml/min/1.73 sqM) Glucose (74-99) mg/dL Calcium (8.4-10.2) mg/dL Magnesium (1.6-2.3) mg/dL Total Bilirubin (0.2-1.3) mg/dL AST (14-36) U/L ALT (4-34) U/L Alkaline Phosphatase (38-126) U/L Troponin I (0.000-0.034) ng/mL NT-Pro-B Natriuret Pep pg/mL Total Protein (6.3-8.2) g/dL Albumin (3.5-5.0) g/dL Lipase (23-300) U/L Urine Color Yellow Urine Appearance Clear (Clear) Urine pH 5.5 (5.0-8.0) Ur Specific [place] 1.013 (1.001-1.035) Urine Protein Negative (Negative) Urine Glucose (UA) Negative (Negative) Urine Ketones Negative (Negative) Urine Blood Small H (Negative) Urine Nitrite Negative (Negative) Urine Bilirubin Negative (Negative) Urine Urobilinogen <2.0 (<2.0) mg/dL Ur Leukocyte Esterase Moderate H (Negative) Urine RBC <1 (0-5) /hpf Urine WBC 31 H (0-5) /hpf Ur Squamous Epith Cells 2 (0-4) /hpf Urine Bacteria Occasional H (None) /hpf Hyaline Casts 28 H (0-2) /lpf Urine Mucus Rare H (None) /hpf 07/10/21 07/10/21 07/10/21 Range/Units 22:33 22:33 22:33 WBC (3.8-10.6) k/uL RBC (3.80-5.40) m/uL Hgb (11.4-16.0) gm/dL Hct (34.0-46.0) % MCV (80.0-100.0) fL MCH (25.0-35.0) pg MCHC (31.0-37.0) g/dL RDW (11.5-15.5) % Plt Count (150-450) k/uL MPV Neutrophils % % Lymphocytes % % Monocytes % % Eosinophils % % Basophils % % Neutrophils # (1.3-7.7) k/uL Lymphocytes # (1.0-4.8) k/uL Monocytes # (0-1.0) k/uL Eosinophils # (0-0.7) k/uL Basophils # (0-0.2) k/uL PT (9.0-12.0) sec INR (<1.2) APTT (22.0-30.0) sec Sodium 134 L (137-145) mmol/L Potassium 2.5 L* (3.5-5.1) mmol/L Chloride 91 L (98-107) mmol/L Carbon Dioxide 32 H (22-30) mmol/L Anion Gap 11 mmol/L BUN 29 H (7-17) mg/dL Creatinine 1.10 H (0.52-1.04) mg/dL Est GFR (CKD-EPI)AfAm 54 (>60 ml/min/1.73 sqM) Est GFR (CKD-EPI)NonAf 47 (>60 ml/min/1.73 sqM) Glucose 171 H (74-99) mg/dL Calcium 9.0 (8.4-10.2) mg/dL Magnesium 2.1 (1.6-2.3) mg/dL Total Bilirubin 0.3 (0.2-1.3) mg/dL AST 18 (14-36) U/L ALT 17 (4-34) U/L Alkaline Phosphatase 82 (38-126) U/L Troponin I 0.026 (0.000-0.034) ng/mL NT-Pro-B Natriuret Pep 551 pg/mL Total Protein 6.1 L (6.3-8.2) g/dL Albumin 3.6 (3.5-5.0) g/dL Lipase 90 (23-300) U/L Urine Color Urine Appearance (Clear) Urine pH (5.0-8.0) Ur Specific [place] (1.001-1.035) Urine Protein (Negative) Urine Glucose (UA) (Negative) Urine Ketones (Negative) Urine Blood (Negative) Urine Nitrite (Negative) Urine Bilirubin (Negative) Urine Urobilinogen (<2.0) mg/dL Ur Leukocyte Esterase (Negative) Urine RBC (0-5) /hpf Urine WBC (0-5) /hpf Ur Squamous Epith Cells (0-4) /hpf Urine Bacteria (None) /hpf Hyaline Casts (0-2) /lpf Urine Mucus (None) /hpf Disposition Clinical Impression: Hypokalemia, Chest pain Disposition: ADMITTED IP TO THIS [facility] Condition: Serious Is patient prescribed a controlled substance at d/c from ED?: No Referrals: Ying Pearson MD [Primary Care Provider] - 1-2 days
[2021-07-10 23:13] LABS: Potassium 2.5 mmol/L (3.5-5.1)
[2021-07-10 23:37] LABS: Partial Thromboplastin Time 21.6 sec (22.0-30.0)
[2021-07-11 00:40] LABS: Appearance,Urine Clear (Clear); Bacteria,Urine Occasional /hpf; Bilirubin,Urine Negative (Negative); Blood,Urine Small (Negative); Color,Urine Yellow; Glucose,Urine (UA) Negative (Negative); Hyaline Casts,Urine 28 /lpf (0-2); Ketones,Urine Negative (Negative); Leukocyte Esterase,Urine Moderate (Negative); Mucus,Urine Rare /hpf; Nitrite,Urine Negative (Negative); PH, Urine 5.5 (5.0-8.0); Protein,Urine Negative (Negative); RBC,Urine <1 /hpf (0-5); Specific Gravity,Urine 1.013 (1.001-1.035); Squamous Epithelial Cell,Urine 2 /hpf (0-4); Urobilinogen,Urine <2.0 mg/dL (<2.0); WBC,Urine 31 /hpf (0-5)
[2021-07-11] MEDS ORDERED: Potassium Replacement Protocol 1 EACH MISC MISCELLANE PRN (01:36)
[2021-07-11] MEDS: POTASSIUM CHLORIDE ER 20 MEQ TAB.ER PO SCH ×3 (01:48→05:27)
[2021-07-11] MEDS: POTASSIUM CHLORIDE 10 MEQ in WATER FOR INJECTION 1 100ML.BAG IVPB SCH ×7 (01:51→23:40)
[2021-07-11] MEDS ORDERED: NITROGLYCERIN SL TABS 0.4 MG TAB SUBLINGUAL PRN (03:14)
[2021-07-11 07:15] LABS: Basophils % (A) 0 %; Eosinophils # (A) 0.2 k/uL (0-0.7); Eosinophils % (A) 2 %; HCT 34.7 % (34.0-46.0); HGB 11.5 gm/dL (11.4-16.0); Lymphocytes # (A) 2.3 k/uL (1.0-4.8); Lymphocytes % (A) 19 %; MCH 30.5 pg (25.0-35.0); MCV 92.6 fL (80.0-100.0); Mean Platelet Volume 7.4; Monocytes # (A) 0.6 k/uL (0-1.0); Monocytes % (A) 5 %; Neutrophils # (A) 8.5 k/uL (1.3-7.7); Neutrophils % (A) 72 %; Platelet Count 287 k/uL (150-450); RBC 3.75 m/uL (3.80-5.40); RDW 14.4 % (11.5-15.5); WBC 11.8 k/uL (3.8-10.6)
[2021-07-11] MEDS ORDERED: ALBUTEROL NEBULIZED 2.5 MG/3 ML INHALATION PRN (07:40)
[2021-07-11] MEDS ORDERED: HYDROcodone/APAP 7.5-325MG 1 EACH TAB PO PRN (07:43)
[2021-07-11 08:04] LABS: African American GFR (CKD) 63 (>60 ml/min/1.73 sqM); Anion Gap 7 mmol/L; Blood Urea Nitrogen 24 mg/dL (7-17); Calcium 8.9 mg/dL (8.4-10.2); Carbon Dioxide 35 mmol/L (22-30); Chloride 95 mmol/L (98-107); Glucose 139 mg/dL (74-99); Non-African American GFR(CKD) 55 (>60 ml/min/1.73 sqM); Potassium 2.9 mmol/L (3.5-5.1); Sodium 137 mmol/L (137-145)
[2021-07-11] MEDS: MIRTAZAPINE 15 MG TAB PO SCH ×2 (08:52→23:41)
[2021-07-11] MEDS: SPIRONOLACTONE 25 MG TAB PO SCH (08:53)
[2021-07-11] MEDS: hydrALAZINE HCL 25 MG TAB PO SCH ×3 (08:53→23:41)
[2021-07-11] MEDS: amLODIPine 10 MG TAB PO SCH (08:53)
[2021-07-11] MEDS: LEVOTHYROXINE 125 MCG TAB PO SCH (08:53)
[2021-07-11] MEDS: cloNIDine HCL 0.1 MG TAB PO SCH ×2 (08:54→23:41)
[2021-07-11] MEDS: carvediloL 12.5 MG TAB PO SCH ×2 (08:54→20:34)
[2021-07-11] MEDS: DOCUSATE 100 MG CAP PO SCH (08:54)
--- NOTE | 2021-07-11 09:40 | P.HPIM ---
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 Patient does not describe as chest pain stating and it is only burning. Denies nausea vomiting or diarrhea or abdominal pain. She states she has COPD before. He denies any urinary symptoms, no dysuria or urgency. No suprapubic tenderness However both of her legs are pink and warm with scaling and there is some bruises with a scar behind the right upper leg posteriorly, for 1 month as per patient She denies smoking, alcohol or illicit drugs She said she takes Lasix 40 mg twice daily at home although it is documented once daily Vitals are stable on admission. However patient had low-grade fever of 100 upon admission also with mild leukocytosis at 13.7 and 11.8. Sodium 134, potassium 2.5, creatinine elevated to 1.1 with baseline 0.7-0.9 Troponin are negative x3 . 0.0-6, 0.0-6 and 0.0-4 ProBNP is 554 Urinalysis is suspicious for infection EKG showing normal sinus rhythm at [address]-T changes. Chest x-ray: No acute process. Patient already started normal saline and potassium replacement per protocol M APS was checked and she is on [place] 7.5 Review of Systems CONSTITUTIONAL: No fever, no malaise, no fatigue. HEENT: No recent visual problems or hearing problems. Denied any sore throat. CARDIOVASCULAR: No orthopnea, PND, no palpitations, no syncope. PULMONARY: No shortness of breath, no cough, no hemoptysis. GASTROINTESTINAL: No diarrhea, no nausea, no vomiting, no abdominal pain. Normoactive bowel sounds. NEUROLOGICAL: No headaches, no weakness, no numbness. HEMATOLOGICAL: Denies any bleeding or petechiae. GENITOURINARY: Denies any burning micturition, frequency, or urgency. MUSCULOSKELETAL/RHEUMATOLOGICAL: Denies any joint pain, swelling, or any muscle pain. ENDOCRINE: Denies any polyuria or polydipsia. Past Medical History Past Medical History: Asthma, Cancer, Heart Failure, COPD, GERD/Reflux, Hyperlipidemia, Hypertension, Osteoarthritis (OA), Pneumonia, Pulmonary Embolus (PE), Rheumatoid Arthritis (RA), Sleep Apnea/CPAP/BIPAP, Thyroid Disorder Additional Past Medical History / Comment(s): COPD/asthma, chronic cough, hypothyroidism, history of basal cell carcinoma of the skin resected, history of melanoma of the skin involving the back, resected, history of diverticulosis/diverticulitis, history of fibrocystic disease, obstructive sleep apnea can sleep with the CPAP, varicose veins in lower extremities, hypothyroidism History of Any Multi-Drug Resistant Organisms: None Reported Past Surgical History: Bladder Surgery, Bowel Resection, Cholecystectomy, Heart Catheterization, Hernia Repair, Hysterectomy, Joint Replacement, Orthopedic Surgery Additional Past Surgical History / Comment(s): LEFT KNEE REPLACED, PARTIAL THYROIDECTOMY,HIATAL HERNIA REPAIR 07/2013, ABDOMINAL HERNIA REPAIR,MULTIPLE SKIN LESIONS-PT STATED HAS HAS BASAL,SQUAMOUS AND MELANOMA SKIN CA ( NECK,RT UPPER & LOWER THIGH,LT ARM,RT ARM, face, back-melanoma)SKIN GRAFTS TO VINOD.LEGS- LT EAR-LT MIDDLE FINGER,ACHILLES TENDON surgery. RT OVARY 1 TUBE REMOVED, SIGMOID RESECTION D/T BOWEL OBSTRUCTION,RT LITLE FINGER AMP, Past Anesthesia/Blood Transfusion Reactions: Previous Problems w/ Anesthesia, Motion Sickness, Postoperative Nausea & Vomiting (PONV) Additional Past Anesthesia/Blood Transfusion Reaction / Comment(s): STATES "HAS HAD SWELLING TO FACE,HANDS,ARMS AND SKIN TURNS "BEET RED"WITH ANESTHESIA-with IV sedation. states no problems with last surgery at [facility] 01/2017-anesthesia records on chart Past Psychological History: Anxiety Smoking Status: Former smoker Past Alcohol Use History: None Reported Past Drug Use History: None Reported - Past Family History Mother Family Medical History: Diabetes Mellitus Additional Family Medical History / Comment(s): HEART PROBLEMS Sister(s) Family Medical History: Diabetes Mellitus, Myocardial Infarction ([place]) Additional Family Medical History / Comment(s): EMPHYSEMA Father Family Medical History: Cancer Additional Family Medical History / Comment(s): LUNG CA. Medications and Allergies Home Medications Medication Instructions Recorded Confirmed Type Levothyroxine Sodium [Synthroid] 125 mcg PO DAILY 10/18/20 07/10/21 History amLODIPine [Norvasc] 10 mg PO DAILY 10/18/20 07/10/21 History Albuterol Sulfate [Albuterol 2 puff PO RT-Q6H PRN 06/03/21 07/10/21 History Sulfate Hfa] Sertraline [Zoloft] 50 mg PO HS 06/03/21 07/10/21 History cloNIDine HCL [Catapres] 0.3 mg PO BID 06/03/21 07/10/21 History Docusate [Colace] 100 mg PO DAILY 06/29/21 07/10/21 History Furosemide [Lasix] 40 mg PO DAILY 06/29/21 07/10/21 History Mirtazapine [Remeron] 15 mg PO HS 06/29/21 07/10/21 History Spironolactone 50 mg PO DAILY 06/29/21 07/10/21 History carvediloL [Coreg*] 12.5 mg PO BID 06/29/21 07/10/21 History hydrALAZINE HCL [Apresoline] 25 mg PO TID tab 07/03/21 07/10/21 Rx Clotrimazole/Betamethasone Dip 1 applic TOPICAL BID 07/10/21 07/10/21 History [Lotrisone Cream] Elderberry Fruit and Flower [Black 1,150 mg PO BID 07/10/21 07/10/21 History Elderberry 575 mg Cap] Fluticasone/Salmeterol [Advair Hfa 2 puff INHALATION RT-BID 07/10/21 07/10/21 History 115-21 Mcg Inhaler] HYDROcodone/APAP 7.5-325MG [[place] 1 tab PO QID PRN 07/10/21 07/10/21 History 7.5-325] L.acidoph,Paracasei, B.lactis 1 cap PO DAILY 07/10/21 07/10/21 History [Probiotic] Multivit-Min/Iron/Folic/Lutein 1 tab PO DAILY 07/10/21 07/10/21 History [Centrum Silver Women Tablet] Simvastatin 40 mg PO HS 07/10/21 07/10/21 History Allergies Allergy/AdvReac Type Severity Reaction Status Date / Time adhesive Allergy SKIN Verified 07/10/21 23:23 REDDENS & BLISTERS- PAPER TAPE OKAY azithromycin [From Zithromax] Allergy Nausea & Verified 07/10/21 23:23 Vomiting meperidine HCl [From Demerol] Allergy Nausea & Verified 07/10/21 23:23 Vomiting morphine Allergy Nausea & Verified 07/10/21 23:23 Vomiting Sulfa (Sulfonamide Allergy Nausea & Verified 07/10/21 23:23 Antibiotics) Vomiting tree and shrub pollen Allergy Cough Verified 07/10/21 23:23 aspirin AdvReac STOMACH Verified 07/10/21 23:23 HERRERA anesthesia Allergy facial/arms/hands Uncoded 06/17/21 19:47 swelling,skin"turns beet red", nausea DISSOLVING SUTURES Allergy INFECTION Uncoded 06/17/21 19:47 Physical Exam Vitals: Vital Signs Temp Pulse Resp BP Pulse Ox 07/11/21 06:17 75 18 164/99 99 07/11/21 04:00 71 18 196/84 99 07/11/21 02:00 71 18 127/70 97 07/11/21 01:00 73 18 129/92 97 07/11/21 00:00 71 18 156/66 97 07/10/21 22:00 100 F H 73 18 185/94 97 Intake and Output 07/10/21 07/11/21 07/11/21 22:59 06:59 14:59 Other: Weight 99.79 kg -GENERAL: The patient is alert and oriented x3, not in any acute distress. Obese HEENT: Pupils are round and equally reacting to light. EOMI. No scleral icterus. No conjunctival pallor. Normocephalic, atraumatic. No pharyngeal erythema. No thyromegaly. CARDIOVASCULAR: S1 and S2 present. No murmurs, rubs, or gallops. PULMONARY: Chest is clear to auscultation, no wheezing or crackles. ABDOMEN: Soft, nontender, nondistended, normoactive bowel sounds. No palpable organomegaly. MUSCULOSKELETAL: No joint swelling or deformity. -EXTREMITIES: No cyanosis, clubbing, or pedal edema. Both legs are pink and warm and scales allover. Also she has small bruise behind the right upper leg. NEUROLOGICAL: Gross neurological examination did not reveal any focal deficits. SKIN: No rashes. No petechiae Results CBC & Chem 7: 07/11/21 06:37 07/11/21 06:37 Labs: Abnormal Lab Results - Last 24 Hours (Table) 11/23/21 11/23/21 11/23/21 Range/Units 22:33 22:33 22:33 WBC 13.7 H (3.8-10.6) k/uL RBC (3.80-5.40) m/uL Neutrophils # 10.5 H (1.3-7.7) k/uL APTT 21.6 L (22.0-30.0) sec Sodium (137-145) mmol/L Potassium (3.5-5.1) mmol/L Chloride (98-107) mmol/L Carbon Dioxide (22-30) mmol/L BUN (7-17) mg/dL Creatinine (0.52-1.04) mg/dL Glucose (74-99) mg/dL Total Protein (6.3-8.2) g/dL Urine Blood Small H (Negative) Ur Leukocyte Esterase Moderate H (Negative) Urine WBC 31 H (0-5) /hpf Urine Bacteria Occasional H (None) /hpf Hyaline Casts 28 H (0-2) /lpf Urine Mucus Rare H (None) /hpf 07/10/21 07/11/21 Range/Units 22:33 06:37 WBC 11.8 H (3.8-10.6) k/uL RBC 3.75 L (3.80-5.40) m/uL Neutrophils # 8.5 H (1.3-7.7) k/uL APTT (22.0-30.0) sec Sodium 134 L (137-145) mmol/L Potassium 2.5 L* (3.5-5.1) mmol/L Chloride 91 L (98-107) mmol/L Carbon Dioxide 32 H (22-30) mmol/L BUN 29 H (7-17) mg/dL Creatinine 1.10 H (0.52-1.04) mg/dL Glucose 171 H (74-99) mg/dL Total Protein 6.1 L (6.3-8.2) g/dL Urine Blood (Negative) Ur Leukocyte Esterase (Negative) Urine WBC (0-5) /hpf Urine Bacteria (None) /hpf Hyaline Casts (0-2) /lpf Urine Mucus (None) /hpf Assessment and Plan Assessment: acute Bilateral leg cellulitis Most likely asymptomatic bacteriuria, less likely Acute urinary tract infection Sepsis with fever and leukocytosis Mild acute kidney injury Severe hypokalemia on admission Hypertension Hyperlipidemia History of GERD COPD Chronic heart failure History of osteoarthritis History of pulmonary embolism not on anticoagulation History of rheumatoid arthritis History of sleep apnea on CPAP Hypothyroidism Obesity with BMI of 34.5 Plan: This is a pleasant 81 years old female who presents with UTI and hypokalemia Replaced potassium and monitor level. Discontinue Lasix for now Start cefazoin and, continue with gentle hydration for 24 hours follow-up urine culture results. cardiology consult Labs and medication were reviewed.. Continue same treatment. Continue with symptomatic treatment. Resume home medication. Monitor lytes and vitals. DVT and GI prophylaxis. Further recommendations depends on the clinical course of the patient DVT prophylaxis: Subcutaneous heparin GI Prophylaxis: Pepcid PT/OT: Pending Prognosis is guarded
[2021-07-11] MEDS ORDERED: SODIUM CHLORIDE 0.9% 1,000 ML IV SCH (09:45)
[2021-07-11] MEDS ORDERED: methylPREDNISolone SOD SUCCI 40 MG/ML 1 ML VIAL IV SCH (09:45)
[2021-07-11] MEDS: HEPARIN SODIUM,PORCINE/PF 5,000 UNIT/0.5 ML SYRINGE SQ SCH ×2 (10:07→23:41)
--- NOTE | 2021-07-11 11:21 | P.CNPUL ---
History of Present Illness Consult date: 07/11/21 Requesting physician: Victoria Khan Reason for consult: dyspnea, chest pain Chief complaint: Shortness of breath, chest pain History of present illness: This a very pleasant 81-year-old female patient who follows with Dr. Pearson is her primary care provider. She has a history of chronic obstructive pulmonary disease/asthma, hyperlipidemia, hypertension, osteoarthritis, rheumatoid arthritis, pulmonary embolism, obstructive sleep apnea retained on CPAP, hypothyroidism, melanoma resected from her back, chronic diastolic congestive heart failure, chronic lower extremity edema with cellulitis and open wounds at times. She was recently discharged from here on 07/03/2021 following acute on chronic hypoxic respiratory failure secondary to acute exacerbation diastolic congestive heart failure and chronic obstructive pulmonary disease. She represented to the emergency room last evening with complaints of chest pain and shortness of breath. She described it as epigastric discomfort and burning up into her throat and across her chest. Stating she could not catch her breath. Chest x-ray showed no acute cardiopulmonary disease. Troponins were negative 3. EKG revealed nonspecific ST and T wave abnormalities. White count 11.8. Hemoglobin 11.5. Sodium 137. Initial potassium 2.5. Currently 2.9. Creatinine 0.97. Glucose 139. [place]ett virus not detected. The patient is vaccinated. Urine culture pending. She is seen today in consultation in the emergency department. She is currently sitting up in bed having breakfast. Awake and alert in no acute distress. Currently denies any chest pain or worsening shortness of breath. She is anxious to go home. Review of Systems REVIEW OF SYSTEMS: CONSTITUTIONAL: Denies any recent significant weight loss or weight gain. EYES: Denies change in vision. EARS, NOSE, MOUTH, THROAT: Denies headaches, denies sore throat. CARDIOVASCULAR: Positive for burning chest pain, no palpitations or syncopal episodes. RESPIRATORY: Positive for shortness of breath, cough, congestion no hemoptysis. GASTROINTESTINAL: Denies change in appetite, denies abdominal pain GENITOURINARY: Denies hematuria, denies infections. MUSKULOSKELETAL: Denies pain, denies swelling. INTEGUMENTARY: Denies rash, denies eczema. NEUROLOGICAL: Denies recent memory loss, no recent seizure activity. PSYCHIATRIC: Denies anxiety, denies depression. HEMATOLOGIC/LYMPHATIC: Denies anemia, denies enlarged lymph nodes. Past Medical History Past Medical History: Asthma, Cancer, Heart Failure, COPD, GERD/Reflux, Hyperlipidemia, Hypertension, Osteoarthritis (OA), Pneumonia, Pulmonary Embolus (PE), Rheumatoid Arthritis (RA), Sleep Apnea/CPAP/BIPAP, Thyroid Disorder Additional Past Medical History / Comment(s): COPD/asthma, chronic cough, hypothyroidism, history of basal cell carcinoma of the skin resected, history of melanoma of the skin involving the back, resected, history of diverticulosis/diverticulitis, history of fibrocystic disease, obstructive sleep apnea can sleep with the CPAP, varicose veins in lower extremities, hypothyroidism History of Any Multi-Drug Resistant Organisms: None Reported Past Surgical History: Bladder Surgery, Bowel Resection, Cholecystectomy, Heart Catheterization, Hernia Repair, Hysterectomy, Joint Replacement, Orthopedic Surgery Additional Past Surgical History / Comment(s): LEFT KNEE REPLACED, PARTIAL THYROIDECTOMY,HIATAL HERNIA REPAIR 07/2013, ABDOMINAL HERNIA REPAIR,MULTIPLE SKIN LESIONS-PT STATED HAS HAS BASAL,SQUAMOUS AND MELANOMA SKIN CA ( NECK,RT U PPER & LOWER THIGH,LT ARM,RT ARM, face, back-melanoma)SKIN GRAFTS TO VINOD.LEGS-LT EAR-LT MIDDLE FINGER,ACHILLES TENDON surgery. RT OVARY 1 TUBE REMOVED, SIGMOID RESECTION D/T BOWEL OBSTRUCTION,RT LITLE FINGER AMP, Past Anesthesia/Blood Transfusion Reactions: Previous Problems w/ Anesthesia, Motion Sickness, Postoperative Nausea & Vomiting (PONV) Additional Past Anesthesia/Blood Transfusion Reaction / Comment(s): STATES "HAS HAD SWELLING TO FACE,HANDS,ARMS AND SKIN TURNS "BEET RED"WITH ANESTHESIA-with IV sedation. states no problems with last surgery at [facility] 01/2017-anesthesia records on chart Past Psychological History: Anxiety Smoking Status: Former smoker Past Alcohol Use History: None Reported Past Drug Use History: None Reported - Past Family History Mother Family Medical History: Diabetes Mellitus Additional Family Medical History / Comment(s): HEART PROBLEMS Sister(s) Family Medical History: Diabetes Mellitus, Myocardial Infarction ([place]) Additional Family Medical History / Comment(s): EMPHYSEMA Father Family Medical History: Cancer Additional Family Medical History / Comment(s): LUNG CA. Medications and Allergies Home Medications Medication Instructions Recorded Confirmed Type Levothyroxine Sodium [Synthroid] 125 mcg PO DAILY 10/18/20 07/10/21 History amLODIPine [Norvasc] 10 mg PO DAILY 10/18/20 07/10/21 History Albuterol Sulfate [Albuterol 2 puff PO RT-Q6H PRN 06/03/21 07/10/21 History Sulfate Hfa] Sertraline [Zoloft] 50 mg PO HS 06/03/21 07/10/21 History cloNIDine HCL [Catapres] 0.3 mg PO BID 06/03/21 07/10/21 History Docusate [Colace] 100 mg PO DAILY 06/29/21 07/10/21 History Furosemide [Lasix] 40 mg PO DAILY 06/29/21 07/10/21 History Mirtazapine [Remeron] 15 mg PO HS 06/29/21 07/10/21 History Spironolactone 50 mg PO DAILY 06/29/21 07/10/21 History carvediloL [Coreg*] 12.5 mg PO BID 06/29/21 07/10/21 History hydrALAZINE HCL [Apresoline] 25 mg PO TID tab 07/03/21 07/10/21 Rx Clotrimazole/Betamethasone Dip 1 applic TOPICAL BID 07/10/21 07/10/21 History [Lotrisone Cream] Elderberry Fruit and Flower [Black 1,150 mg PO BID 07/10/21 07/10/21 History Elderberry 575 mg Cap] Fluticasone/Salmeterol [Advair Hfa 2 puff INHALATION RT-BID 07/10/21 07/10/21 History 115-21 Mcg Inhaler] HYDROcodone/APAP 7.5-325MG [[place] 1 tab PO QID PRN 07/10/21 07/10/21 History 7.5-325] L.acidoph,Paracasei, B.lactis 1 cap PO DAILY 07/10/21 07/10/21 History [Probiotic] Multivit-Min/Iron/Folic/Lutein 1 tab PO DAILY 07/10/21 07/10/21 History [Centrum Silver Women Tablet] Simvastatin 40 mg PO HS 07/10/21 07/10/21 History Allergies Allergy/AdvReac Type Severity Reaction Status Date / Time adhesive Allergy SKIN Verified 07/10/21 23:23 REDDENS & BLISTERS- PAPER TAPE OKAY azithromycin [From Zithromax] Allergy Nausea & Verified 07/10/21 23:23 Vomiting meperidine HCl [From Demerol] Allergy Nausea & Verified 07/10/21 23:23 Vomiting morphine Allergy Nausea & Verified 07/10/21 23:23 Vomiting Sulfa (Sulfonamide Allergy Nausea & Verified 07/10/21 23:23 Antibiotics) Vomiting tree and shrub pollen Allergy Cough Verified 07/10/21 23:23 aspirin AdvReac STOMACH Verified 07/10/21 23:23 HERRERA anesthesia Allergy facial/arms/hands Uncoded 06/17/21 19:47 swelling,skin"turns beet red", nausea DISSOLVING SUTURES Allergy INFECTION Uncoded 06/17/21 19:47 Physical Exam Vitals: Vital Signs Temp Pulse Resp BP Pulse Ox 07/11/21 09:16 17 07/11/21 07:40 80 16 144/71 97 07/11/21 06:17 75 18 164/99 99 07/11/21 04:00 71 18 196/84 99 07/11/21 02:00 71 18 127/70 97 07/11/21 01:00 73 18 129/92 97 07/11/21 00:00 71 18 156/66 97 07/10/21 22:00 100 F H 73 18 185/94 97 Intake and Output 07/10/21 07/11/21 07/11/21 22:59 06:59 14:59 Other: Weight 99.79 kg GENERAL EXAM: Alert, pleasant 81-year-old female patient, up in a chair at the bedside, on 4 L nasal cannula, comfortable in no apparent distress. HEAD: Normocephalic. EYES: Normal reaction of pupils, equal size. NOSE: Clear with pink turbinates. THROAT: No erythema or exudates. NECK: No masses, no JVD. CHEST: No chest wall deformity. LUNGS: Equal air entry with no crackles, wheeze or rhonchi. Diminished.. CVS: S1 and S2 normal with no audible murmur, regular rhythm. ABDOMEN: No hepatosplenomegaly, normal bowel sounds, no guarding or rigidity. SPINE: No scoliosis or deformity SKIN: No rashes CENTRAL NERVOUS SYSTEM: No focal deficits, tone is normal in all 4 extremities. EXTREMITIES: There is 1+ peripheral edema. Changes of chronic venous stasis, dressing is dry and intact to the lower extremities No clubbing, no cyanosis. Peripheral pulses are intact. Results - Laboratory Findings CBC and BMP: 07/11/21 06:37 07/11/21 06:37 PT/INR, D-dimer PT 9.9 sec (9.0-12.0) 07/10/21 22:33 INR 0.9 (<1.2) 07/10/21 22:33 Abnormal lab findings: Abnormal Labs 07/10/21 07/10/21 07/10/21 22:33 22:33 22:33 WBC 13.7 H RBC Neutrophils # 10.5 H APTT 21.6 L Sodium Potassium Chloride Carbon Dioxide BUN Creatinine Glucose Total Protein Urine Blood Small H Ur Leukocyte Esterase Moderate H Urine WBC 31 H Urine Bacteria Occasional H Hyaline Casts 28 H Urine Mucus Rare H 07/10/21 07/11/21 07/11/21 22:33 06:37 06:37 WBC 11.8 H RBC 3.75 L Neutrophils # 8.5 H APTT Sodium 134 L Potassium 2.5 L* 2.9 L Chloride 91 L 95 L Carbon Dioxide 32 H 35 H BUN 29 H 24 H Creatinine 1.10 H Glucose 171 H 139 H Total Protein 6.1 L Urine Blood Ur Leukocyte Esterase Urine WBC Urine Bacteria Hyaline Casts Urine Mucus - Diagnostic Findings Chest x-ray: image reviewed Assessment and Plan Assessment: 1 Atypical chest pain and shortness of breath suspect secondary to acid reflux 2 Hypokalemia on diuretics in the outpatient setting 3 Recent admission for acute on chronic hypoxemic respiratory failure secondary to an acute exacerbation of diastolic congestive heart failure/COPD 4 Rheumatoid arthritis 5 Obstructive sleep apnea nontolerant to CPAP therapy 6 History of skin cancer in the form of squamous cell carcinoma and basal cell carcinoma and melanoma, all resected 7 History of diverticular disease 8 Gastroesophageal reflux disease 9 Remote history of pulmonary embolism, in a postoperative setting 10 Hypertension 11 Hypothyroidism 12 Chronic back pain has been on [place] 7.5 and she'll be given 1 tablet every 24 hours on an as-needed basis for ongoing pain. 13 Coronary artery disease with nonocclusive disease based on a cardiac catheterization from 2018 with mild disease involving the LAD, preserved LV function Plan: The patient was seen and evaluated by Dr. Fitzgerald Chest x-ray and labs reviewed Replace potassium Continue Symbicort, DuoNeb's Discontinue IV Solu-Medrol She is stable from the pulmonary standpoint Home once cleared by medicine I, the cosigning physician, performed a history & physical examination of the patient. Lungs sounds are clear but diminished. Maintaining good O2 saturations in the 90s on 4 L/m per nasal cannula. I discussed the assessment and plan of care with my nurse practitioner, Lashae Blackburn. I attest to the above consultation as dictated by her. Time with Patient: Greater than 30
[2021-07-11] MEDS ORDERED: methylPREDNISolone SOD SUCCI 125 MG/2 ML VIAL IV STA (11:24)
[2021-07-11] MEDS: diphenhydrAMINE 50 MG/ML 1 ML VIAL IVP PRN (11:27)
[2021-07-11] MEDS ORDERED: FAMOTIDINE 20 MG/2 ML VIAL IV SCH (11:30)
[2021-07-11] MEDS: IPRATROPIUM-ALBUTEROL 3 ML NEB INHALATION SCH ×3 (11:35→20:01)
--- NOTE | 2021-07-11 14:31 | US ---
EXAMINATION TYPE: US venous doppler duplex LE DATE OF EXAM: 07/11/2021 9:42 AM COMPARISON: NONE CLINICAL HISTORY: 81-year-old female leg swelling. leg swelling for years, history of DVT in the arm years ago, extremely tender legs, patient would not allow tech to do compression images, patient was in recliner for exam, refused to tranfer to bed SIDE PERFORMED: Bilateral TECHNIQUE: The lower extremity deep venous system is examined utilizing real time linear array sonog cherry with graded compression, doppler sonography and color-flow sonography. FINDINGS: VESSELS IMAGED: Common Femoral Vein Deep Femoral Vein Greater Saphenous Vein * Femoral Vein Popliteal Vein Small Saphenous Vein * Proximal Calf Veins (* superficial vessels) Right Leg: very limited exam, color doppler of CFV and femoral vein with pulse doppler done, unable to do compression due to patients pain tolerance. Unable to even visualize popiteal vessels due to ex tensive edema Left Leg: very limited exam, color doppler of CFV and femoral vein with pulse doppler done, unable t o do compression due to patients pain tolerance. patients exam needed to stop due to possible reaction to antibiotic that effected her breathing. IMPRESSION: Suboptimal study. There seems to be color-flow patency on the right from the common femoral vein into the lower superfi cial femoral vein. On the left, color-flow patency seen from the common femoral vein down into the pr oximal superficial femoral vein. The exam had to be prematurely stopped due to patient's condition. Extensive soft tissue edema. The popliteal veins could not be adequately visualized to assess patency.
[2021-07-11] MEDS: SYMBICORT 160-4.5 MCG INHALER INHALATION SCH (20:02)
[2021-07-11] MEDS ORDERED: IPRATROPIUM-ALBUTEROL 3 ML NEB INHALATION PRN (20:37)
[2021-07-11] MEDS: SERTRALINE 50 MG TAB PO SCH (23:41)
[2021-07-12] MEDS: POTASSIUM CHLORIDE 10 MEQ in WATER FOR INJECTION 1 100ML.BAG IVPB SCH (02:28)
[2021-07-12] MEDS: POTASSIUM CHLORIDE ER 20 MEQ TAB.ER PO SCH ×3 (03:45→04:39)
[2021-07-12] MEDS: LEVOTHYROXINE 125 MCG TAB PO SCH (06:27)
[2021-07-12 07:15] LABS: HCT 32.4 % (34.0-46.0); HGB 10.7 gm/dL (11.4-16.0); MCH 31.2 pg (25.0-35.0); MCHC 33.1 g/dL (31.0-37.0); MCV 94.2 fL (80.0-100.0); RBC 3.44 m/uL (3.80-5.40); RDW 14.6 % (11.5-15.5); WBC 20.3 k/uL (3.8-10.6)
[2021-07-12 07:16] LABS: Basophils % (A) 0 %; Eosinophils % (A) 0 %; Lymphocytes # (A) 1.4 k/uL (1.0-4.8); Lymphocytes % (A) 7 %; Mean Platelet Volume 7.5; Monocytes # (A) 0.6 k/uL (0-1.0); Monocytes % (A) 3 %; Neutrophils # (A) 18.1 k/uL (1.3-7.7); Neutrophils % (A) 89 %; Platelet Count 296 k/uL (150-450)
[2021-07-12] MEDS: SYMBICORT 160-4.5 MCG INHALER INHALATION SCH ×2 (07:51→20:32)
[2021-07-12] MEDS: IPRATROPIUM-ALBUTEROL 3 ML NEB INHALATION SCH ×4 (07:51→20:32)
[2021-07-12] MEDS: SPIRONOLACTONE 25 MG TAB PO SCH (09:10)
[2021-07-12] MEDS: carvediloL 12.5 MG TAB PO SCH ×2 (09:11→17:32)
[2021-07-12] MEDS: hydrALAZINE HCL 25 MG TAB PO SCH ×3 (09:11→21:29)
[2021-07-12] MEDS: FAMOTIDINE 20 MG TAB PO SCH (09:12)
[2021-07-12] MEDS: DOCUSATE 100 MG CAP PO SCH (09:12)
[2021-07-12] MEDS: amLODIPine 10 MG TAB PO SCH (09:20)
[2021-07-12] MEDS: cloNIDine HCL 0.1 MG TAB PO SCH ×2 (09:20→21:29)
[2021-07-12] MEDS: HEPARIN SODIUM,PORCINE/PF 5,000 UNIT/0.5 ML SYRINGE SQ SCH ×2 (09:21→21:30)
[2021-07-12] MEDS: ASPIRIN 325 MG TAB PO SCH (09:26)
[2021-07-12 11:20] LABS: African American GFR (CKD) 45.1 (60.0-200.0); BUN/Creat Ratio 17.03 Ratio (12.00-20.00); Blood Urea Nitrogen 21.8 mg/dL (9.0-27.0); Calcium 8.8 mg/dL (8.7-10.3); Carbon Dioxide 27.3 mmol/L (20.0-27.5); Chloride 98 mmol/L (96-109); Chol/HDL Ratio 3.72 Ratio; Glucose 245 mg/dL (70-110); LDL Cholesterol,Calculated 82.3 mg/dL (0.0-131.0); Magnesium 2.2 mg/dL (1.5-2.4); Non-African American GFR(CKD) 38.9 (60.0-200.0); Potassium 3.7 mmol/L (3.5-5.5); Sodium 139 mmol/L (135-145)
[2021-07-12] MEDS: CLINDAMYCIN 300 MG in DEXTROSE 5% IN WATER 50 ML IVPB SCH ×4 (14:49→21:31)
--- NOTE | 2021-07-12 14:49 | P.PN ---
Subjective Progress Note Date: 07/12/21 Principal diagnosis: Atypical chest pain This a very pleasant 81-year-old female patient who follows with Dr. Pearson is her primary care provider. She has a history of chronic obstructive pulmonary disease/asthma, hyperlipidemia, hypertension, osteoarthritis, rheumatoid arthrit is, pulmonary embolism, obstructive sleep apnea retained on CPAP, hypothyroidism, melanoma resected from her back, chronic diastolic congestive heart failure, chronic lower extremity edema with cellulitis and open wounds at times. She was recently discharged from here on 07/03/2021 following acute on chronic hypoxic respiratory failure secondary to acute exacerbation diastolic congestive heart failure and chronic obstructive pulmonary disease. She represented to the emergency room last evening with complaints of chest pain and shortness of breath. She described it as epigastric discomfort and burning up into her throat and across her chest. Stating she could not catch her breath. Chest x-ray showed no acute cardiopulmonary disease. Troponins were negative 3. EKG revealed nonspecific ST and T wave abnormalities. White count 11.8. Hemoglobin 11.5. Sodium 137. Initial potassium 2.5. Currently 2.9. Creatinine 0.97. Glucose 139. Pickett virus not detected. The patient is vac cinated. Urine culture pending. She is seen today in consultation in the emergency department. She is currently sitting up in bed having breakfast. Awake and alert in no acute distress. Currently denies any chest pain or worsening shortness of breath. She is anxious to go home. The patient is seen today the 2020 in follow-up on the regular medical floor. She is currently sitting up in a chair at the bedside. Awake and alert in no acute distress. She denies any worsening shortness of breath cough or congestion. Maintaining good O2 saturations up to 98% on 4 L/m per nasal cannula. Afebrile. Hemodynamically stable. Urine culture pending. Blood cultures reveal no growth to date. White count 20.3. Hemoglobin 10.7. Sodium 139. Potassium 3.7. Creatinine 1.3. Pro-calcitonin 0.27. She continues on DuoNeb inhalations, Symbicort. Heparin for DVT prophylaxis. Antibiotics in the form of clindamycin. Objective - Vital Signs Vital signs: Vital Signs Temp 97.8 F 07/12/21 11:41 Pulse 64 07/12/21 11:54 Resp 18 07/12/21 11:41 BP 103/50 07/12/21 11:41 Pulse Ox 98 07/12/21 11:41 Intake & Output 07/11/21 07/12/21 07/12/21 18:59 06:59 18:59 Intake Total 100 Balance 100 Weight 99.79 kg Intake: Intake, IV Titration 100 Amount Potassium Chloride 10 meq 100 In Water For Injection 1 100ml.bag @ 100 mls/hr IVPB Q1HR [facility] Rx#: [id number] Other: Voiding Method Diaper Diaper - Exam GENERAL EXAM: Alert, pleasant 81-year-old female patient, up in a chair at the bedside, on 4 L nasal cannula, comfortable in no apparent distress. HEAD: Normocephalic. EYES: Normal reaction of pupils, equal size. NOSE: Clear with pink turbinates. THROAT: No erythema or exudates. NECK: No masses, no JVD. CHEST: No chest wall deformity. LUNGS: Equal air entry with no crackles, wheeze or rhonchi. Diminished.. CVS: S1 and S2 normal with no audible murmur, regular rhythm. ABDOMEN: No hepatosplenomegaly, normal bowel sounds, no guarding or rigidity. SPINE: No scoliosis or deformity SKIN: No rashes CENTRAL NERVOUS SYSTEM: No focal deficits, tone is normal in all 4 extremities. EXTREMITIES: There is 1+ peripheral edema. Changes of chronic venous stasis, dressing is dry and intact to the lower extremities No clubbing, no cyanosis. Peripheral pulses are intact. - Labs CBC & Chem 7: 07/12/21 06:47 07/12/21 06:47 Labs: Abnormal Lab Results - Last 24 Hours (Table) 07/12/21 07/12/21 07/12/21 Range/Units 06:47 06:47 06:47 WBC 20.3 H (3.8-10.6) k/uL RBC 3.44 L (3.80-5.40) m/uL Hgb 10.7 L (11.4-16.0) gm/dL Hct 32.4 L (34.0-46.0) % Neutrophils # 18.1 H (1.3-7.7) k/uL Est GFR (CKD-EPI)AfAm 45.1 L (60.0-200.0) Est GFR (CKD-EPI)NonAf 38.9 L (60.0-200.0) Glucose 245 H (70-110) mg/dL Triglycerides 166.00 H (0.00-149.00) mg/dL Procalcitonin 0.27 H (0.02-0.09) ng/mL Microbiology - Last 24 Hours (Table) 07/11/21 09:16 Blood Culture - Preliminary Blood No Growth after 24 hours 07/11/21 09:32 Blood Culture - Preliminary Blood No Growth after 24 hours 07/11/21 00:00 Urine Culture - Preliminary Urine,Voided Assessment and Plan Assessment: 1 Atypical chest pain and shortness of breath suspect secondary to acid reflux 2 Hypokalemia on diuretics in the outpatient setting 3 Recent admission for acute on chronic hypoxemic respiratory failure secondary to an acute exacerbation of diastolic congestive heart failure/COPD 4 Rheumatoid arthritis 5 Obstructive sleep apnea nontolerant to CPAP therapy 6 History of skin cancer in the form of squamous cell carcinoma and basal cell carcinoma and melanoma, all resected 7 History of diverticular disease 8 Gastroesophageal reflux disease 9 Remote history of pulmonary embolism, in a postoperative setting 10 Hypertension 11 Hypothyroidism 12 Chronic back pain has been on [place] 7.5 and she'll be given 1 tablet every 24 hours on an as-needed basis for ongoing pain. 13 Coronary artery disease with nonocclusive disease based on a cardiac catheterization from 2018 with mild disease involving the LAD, preserved LV function Plan: The patient was seen and evaluated by Franco Manuel's She is stable from the pulmonary standpoint Home once cleared by medicine I, the cosigning physician, performed a history & physical examination of the patient. Lungs sounds are clear but diminished. Maintaining good O2 saturations in the 90s on 4 L/m per nasal cannula. I discussed the assessment and plan of care with my nurse practitioner, Lashae Blackburn. I attest to the above note as dictated by her.
[2021-07-12] MEDS ORDERED: POTASSIUM CHLORIDE ER 20 MEQ TAB.ER PO STA (19:44)
--- NOTE | 2021-07-12 19:50 | P.PN ---
Subjective This is a pleasant 81 years old female with past medical history of Asthma, Heart Failure, COPD, GERD, Hyperlipidemia, Hypertension, Osteoarthritis , Pulmonary Embolus not on anticoagulation, Rheumatoid Arthritis, Sleep Apnea/CPAP/BIPAP, hypothyroidism She sees [facility] chief Dr. Kohli Patient's presents because she was feeling shortness of breath and coughing which is dry for one day duration associated with burning sensation in the center of her chest which is now much better. Patient does not describe as chest pain stating and it is only burning. Denies nausea vomiting or diarrhea or abdominal pain. She states she has COPD before. He denies any urinary symptoms, no dysuria or urgency. No suprapubic tenderness However both of her legs are pink and warm with scaling and there is some bruises with a scar behind the right upper leg posteriorly, for 1 month as per patient She denies smoking, alcohol or illicit drugs She said she takes Lasix 40 mg twice daily at home although it is documented once daily Vitals are stable on admission. However patient had low-grade fever of 100 upon admission also with mild leukocytosis at 13.7 and 11.8. Sodium 134, potassium 2.5, creatinine elevated to 1.1 with baseline 0.7-0.9 Troponin are negative x3 . 0.0-6, 0.0-6 and 0.0-4 ProBNP is 554 Urinalysis is suspicious for infection EKG showing normal sinus rhythm at [address]-T changes. Chest x-ray: No acute process. Patient already started normal saline and potassium replacement per protocol M APS was checked and she is on [place] 7.5 07/12/2021 Patient breathing is stable. Hemodynamically stable. No more fever. Patient she had fever of 100 upon admission. Her both legs look the same as yesterday as she could not get cefazolin because of its ALLERGIC reaction to it. Cefazolin was stopped on patient informed that she is ALLERGIC to cefazolin. Antibiotics was adjusted to clindamycin. procalcitonin is slightly elevated at 0.27. WBC jumped 11 up to 20 but also because she kept steroids yesterday. Patient was cleared for discharge by pulmonary team, we will we will discharge the patient was she's also cleared by infectious disease team. Possible 24-48hr once cleared. Also patient refused to go to rehab if indicated and states she already have home care at home. Objective - Vital Signs Vital signs: Vital Signs Temp 97.8 F 07/12/21 11:41 Pulse 64 07/12/21 11:54 Resp 18 07/12/21 11:41 BP 103/50 07/12/21 11:41 Pulse Ox 98 07/12/21 11:41 Intake & Output 07/11/21 07/12/21 07/12/21 18:59 06:59 18:59 Intake Total 100 Balance 100 Weight 99.79 kg Intake: Intake, IV Titration 100 Amount Potassium Chloride 10 meq 100 In Water For Injection 1 100ml.bag @ 100 mls/hr IVPB Q1HR [facility] Rx#: [id number] Other: Voiding Method Diaper Diaper - Exam -GENERAL: The patient is alert and oriented x3, not in any acute distress. Obese HEENT: Pupils are round and equally reacting to light. EOMI. No scleral icterus. No conjunctival pallor. Normocephalic, atraumatic. No pharyngeal erythema. No thyromegaly. CARDIOVASCULAR: S1 and S2 present. No murmurs, rubs, or gallops. PULMONARY: Chest is clear to auscultation, no wheezing or crackles. ABDOMEN: Soft, nontender, nondistended, normoactive bowel sounds. No palpable organomegaly. MUSCULOSKELETAL: No joint swelling or deformity. -EXTREMITIES: No cyanosis, clubbing, or pedal edema. Both legs are pink and warm and scales allover. Also she has small bruise behind the right upper leg. NEUROLOGICAL: Gross neurological examination did not reveal any focal deficits. SKIN: No rashes. No petechiae - Labs CBC & Chem 7: 07/12/21 06:47 07/12/21 06:47 Labs: Abnormal Lab Results - Last 24 Hours (Table) 07/12/21 07/12/21 07/12/21 Range/Units 06:47 06:47 06:47 WBC 20.3 H (3.8-10.6) k/uL RBC 3.44 L (3.80-5.40) m/uL Hgb 10.7 L (11.4-16.0) gm/dL Hct 32.4 L (34.0-46.0) % Neutrophils # 18.1 H (1.3-7.7) k/uL Est GFR (CKD-EPI)AfAm 45.1 L (60.0-200.0) Est GFR (CKD-EPI)NonAf 38.9 L (60.0-200.0) Glucose 245 H (70-110) mg/dL Triglycerides 166.00 H (0.00-149.00) mg/dL Procalcitonin 0.27 H (0.02-0.09) ng/mL Microbiology - Last 24 Hours (Table) 07/11/21 09:16 Blood Culture - Preliminary Blood No Growth after 24 hours 07/11/21 09:32 Blood Culture - Preliminary Blood No Growth after 24 hours 07/11/21 00:00 Urine Culture - Preliminary Urine,Voided Assessment and Plan Assessment: acute Bilateral leg cellulitis Most likely asymptomatic bacteriuria, less likely Acute urinary tract infection Sepsis with fever and leukocytosis Mild acute kidney injury Severe hypokalemia on admission, improving Hypertension Hyperlipidemia History of GERD COPD Chronic heart failure History of osteoarthritis History of pulmonary embolism not on anticoagulation History of rheumatoid arthritis History of sleep apnea on CPAP Hypothyroidism Obesity with BMI of 34.5 Plan: This is a pleasant 81 years old female who presents with cellulitis and hypokalemia Replaced potassium and monitor level. Discontinue Lasix for now Change cefazolin to clindamycin Pulmonary consult team. The patient for discharge. We'll discharge the patient was cleared by ID team as well Labs and medication were reviewed.. Continue same treatment. Continue with symptomatic treatment. Resume home medication. Monitor lytes and vitals. DVT and GI prophylaxis. Further recommendations depends on the clinical course of the patient DVT prophylaxis: Subcutaneous heparin GI Prophylaxis: Pepcid PT/OT: Pending
[2021-07-12] MEDS: SERTRALINE 50 MG TAB PO SCH (21:29)
[2021-07-12] MEDS: MIRTAZAPINE 15 MG TAB PO SCH (21:30)
[2021-07-12] MEDS: diphenhydrAMINE 50 MG/ML 1 ML VIAL IVP PRN (23:22)
[2021-07-13] MEDS: CLINDAMYCIN 300 MG in DEXTROSE 5% IN WATER 50 ML IVPB SCH ×4 (05:47→14:33)
[2021-07-13] MEDS: SYMBICORT 160-4.5 MCG INHALER INHALATION SCH (08:03)
[2021-07-13] MEDS: IPRATROPIUM-ALBUTEROL 3 ML NEB INHALATION SCH ×3 (08:03→15:35)
[2021-07-13] MEDS: SPIRONOLACTONE 25 MG TAB PO SCH (09:19)
[2021-07-13] MEDS: FAMOTIDINE 20 MG TAB PO SCH (09:19)
[2021-07-13] MEDS: HEPARIN SODIUM,PORCINE/PF 5,000 UNIT/0.5 ML SYRINGE SQ SCH (09:19)
[2021-07-13] MEDS: ASPIRIN 325 MG TAB PO SCH (09:19)
[2021-07-13] MEDS: DOCUSATE 100 MG CAP PO SCH (09:19)
[2021-07-13] MEDS: LEVOTHYROXINE 125 MCG TAB PO SCH (09:20)
[2021-07-13] MEDS: cloNIDine HCL 0.1 MG TAB PO SCH (09:21)
[2021-07-13] MEDS: hydrALAZINE HCL 25 MG TAB PO SCH (09:21)
[2021-07-13] MEDS: carvediloL 12.5 MG TAB PO SCH (09:21)
[2021-07-13] MEDS: amLODIPine 10 MG TAB PO SCH (09:21)
[2021-07-13] MEDS ORDERED: IOPAMIDOL CONTRAST (ORAL USE) VIAL PO PRN (10:14)
--- NOTE | 2021-07-13 10:18 | P.CONS ---
History of Present Illness - Reason for Consult Consult date: 07/12/21 leg cellulitis Requesting physician: Dontae Ferrari - Chief Complaint epigastric burning pain x 1 day - History of Present Illness History of present illness : Patient is 81-year female presenting to the ER via EMS for evaluation of burning epigastric discomfort that radiates up her esophagus to the throat and episode of feeling like she cannot catch her breath the patient symptoms started 3 PM the day of presentation the hospital patient denies any fever or chills but she did have low-grade fever 100 Fahrenheit on admission patient initially was not hypoxic subsequently have low- grade fever of 80 F patient did have white count of 13 point 7 repeat is up to 20.3 BUN/creatinine was mild elevated subsequent normalized urine has been mildly positive patient apparently was started on cefazolin for suspected lower extremity cellulitis in this patient who did have history of diffuse swelling to the leg however develop allergic reaction which was discontinued patient was started on clindamycin and infectious disease was consulted for further management patient Denies having any pain to lower extremity patient did have a negative chest x-ray on admission and did have a negative lower extremity Dopplers Review of system: CONSTITUTIONAL: Positive for weakness along with the fever. EYES: No complaint. ENT: No complaint. RESPIRATORY: No complaint. CARDIOVASCULAR: No complaint. GENITOURINARY: No complaint. GASTROINTESTINAL as per history of present illness. MUSCULOSKELETAL: No complaint. INTEGUMENTARY as per history of present illness. PSYCHOLOGIC: No complaint. ENDOCRINE: No complaint. NEUROLOGIC: No complaint. Past medical history : Reviewed, documented below Past surgical history : Reviewed, documented below Social history: Reviewed, documented below Medications: Reviewed, as documented below EXAMINATION: Vital sigans= Reviewed and documented below GENERAL DESCRIPTION: Elderly female up in the chair, no distress. No tachypnea or accessory muscle of respiration use. HEENT: Shows Pallor , no scleral icterus. Oral mucous membrane is dry. NECK: Trachea central, no thyromegaly. LUNGS: Unlabored breathing. Decreased breath sound at the base. No wheeze or crackle. HEART: S1, S2, regular rate and rhythm. ABDOMEN: Soft, no tenderness , guarding or rigidity EXTREMITIES: Diffuse swelling to the lower extremity with some erythematous patches but no significant warmth SKIN: No rash, no masses palpable. NEUROLOGICAL: The patient is awake, alert, oriented x3, mood and affect normal. LABS AND RADIOLOGY: Reviewed results see below Assessment : 1-patient presented to hospital with epigastric burning pain in this patient subsequently did have a low-grade fever and did have elevated white count patient did have a negative chest x-ray mildly positive UA did have some lower extremity swelling which seems to be chronic for him and some erythematous patches but no convincing evidence of cellulitis for her elevated white count and abdominal symptom will need to rule out any abdominal pathology 2-patient with multiple antibiotic allergies that would limit the number of antibiotics safe to use Plan: 1-obtain CT abdominal pelvis with oral contrast only 2-continue with clindamycin for now 3-Lenard wrap to the leg from just above the toe to below the knee We will follow on clinical condition and cultures to further adjust medication if needed Thank you for this consultation we will follow the patient along with you Past Medical History Past Medical History: Asthma, Cancer, Heart Failure, COPD, GERD/Reflux, Hyperlipidemia, Hypertension, Osteoarthritis (OA), Pneumonia, Pulmonary Embolus (PE), Rheumatoid Arthritis (RA), Sleep Apnea/CPAP/BIPAP, Thyroid Disorder Additional Past Medical History / Comment(s): COPD/asthma, chronic cough, hypothyroidism, history of basal cell carcinoma of the skin resected, history of melanoma of the skin involving the back, resected, history of diverticulosis/diverticulitis, history of fibrocystic disease, obstructive sleep apnea can sleep with the CPAP, varicose veins in lower extremities, hypothyroidism History of Any Multi-Drug Resistant Organisms: None Reported Past Surgical History: Bladder Surgery, Bowel Resection, Cholecystectomy, Heart Catheterization, Hernia Repair, Hysterectomy, Joint Replacement, Orthopedic Surgery Additional Past Surgical History / Comment(s): LEFT KNEE REPLACED, PARTIAL THYROIDECTOMY,HIATAL HERNIA REPAIR 07/2013, ABDOMINAL HERNIA REPAIR,MULTIPLE SKIN LESIONS-PT STATED HAS HAS BASAL,SQUAMOUS AND MELANOMA SKIN CA ( NECK,RT UPPER & LOWER THIGH,LT ARM,RT ARM, face, back-melanoma)SKIN GRAFTS TO VINOD.LEGS-L T EAR-LT MIDDLE FINGER,ACHILLES TENDON surgery. RT OVARY 1 TUBE REMOVED, SIGMOID RESECTION D/T BOWEL OBSTRUCTION,RT LITLE FINGER AMP, Past Anesthesia/Blood Transfusion Reactions: Previous Problems w/ Anesthesia, Motion Sickness, Postoperative Nausea & Vomiting (PONV) Additional Past Anesthesia/Blood Transfusion Reaction / Comm: STATES "HAS HAD SWELLING TO FACE,HANDS,ARMS AND SKIN TURNS "BEET RED"WITH ANESTHESIA-with IV sedation. states no problems with last surgery at [facility] 01/2017-anesthesia records on chart Past Psychological History: Anxiety Smoking Status: Former smoker Past Alcohol Use History: None Reported Additional Past Alcohol Use History / Comment(s): STARTED SMOKING 1963 AND QUIT 1974 SMOKED 1 PPD Past Drug Use History: None Reported - Past Family History Mother Family Medical History: Diabetes Mellitus Additional Family Medical History / Comment(s): HEART PROBLEMS Sister(s) Family Medical History: Diabetes Mellitus, Myocardial Infarction (MT) Additional Family Medical History / Comment(s): EMPHYSEMA Father Family Medical History: Cancer Additional Family Medical History / Comment(s): LUNG CA. Medications and Allergies Home Medications Medication Instructions Recorded Confirmed Type Levothyroxine Sodium [Synthroid] 125 mcg PO DAILY 10/18/20 07/10/21 History amLODIPine [Norvasc] 10 mg PO DAILY 10/18/20 07/10/21 History Albuterol Sulfate [Albuterol 2 puff PO RT-Q6H PRN 06/03/21 07/10/21 History Sulfate Hfa] Sertraline [Zoloft] 50 mg PO HS 06/03/21 07/10/21 History cloNIDine HCL [Catapres] 0.3 mg PO BID 06/03/21 07/10/21 History Docusate [Colace] 100 mg PO DAILY 06/29/21 07/10/21 History Furosemide [Lasix] 40 mg PO DAILY 06/29/21 07/10/21 History Mirtazapine [Remeron] 15 mg PO HS 06/29/21 07/10/21 History Spironolactone 50 mg PO DAILY 06/29/21 07/10/21 History carvediloL [Coreg*] 12.5 mg PO BID 06/29/21 07/10/21 History hydrALAZINE HCL [Apresoline] 25 mg PO TID tab 07/03/21 07/10/21 Rx Clotrimazole/Betamethasone Dip 1 applic TOPICAL BID 07/10/21 07/10/21 History [Lotrisone Cream] Elderberry Fruit and Flower [Black 1,150 mg PO BID 07/10/21 07/10/21 History Elderberry 575 mg Cap] Fluticasone/Salmeterol [Advair Hfa 2 puff INHALATION RT-BID 07/10/21 07/10/21 History 115-21 Mcg Inhaler] HYDROcodone/APAP 7.5-325MG [[place] 1 tab PO QID PRN 07/10/21 07/10/21 History 7.5-325] L.acidoph,Paracasei, B.lactis 1 cap PO DAILY 07/10/21 07/10/21 History [Probiotic] Multivit-Min/Iron/Folic/Lutein 1 tab PO DAILY 07/10/21 07/10/21 History [Centrum Silver Women Tablet] Simvastatin 40 mg PO HS 07/10/21 07/10/21 History Albuterol Inhaler [Ventolin Hfa 1 puff INHALATION RT-QID PRN #8 gm 07/13/21 Rx Inhaler] Clindamycin [Cleocin] 300 mg PO Q8H #42 cap 07/13/21 Rx Allergies Allergy/AdvReac Type Severity Reaction Status Date / Time adhesive Allergy SKIN Verified 07/10/21 23:23 REDDENS & BLISTERS- PAPER TAPE OKAY azithromycin [From Zithromax] Allergy Nausea & Verified 07/10/21 23:23 Vomiting meperidine HCl [From Demerol] Allergy Nausea & Verified 07/10/21 23:23 Vomiting morphine Allergy Nausea & Verified 07/10/21 23:23 Vomiting Sulfa (Sulfonamide Allergy Nausea & Verified 07/10/21 23:23 Antibiotics) Vomiting tree and shrub pollen Allergy Cough Verified 07/10/21 23:23 aspirin AdvReac STOMACH Verified 07/10/21 23:23 HERRERA anesthesia Allergy facial/arms/hands Uncoded 06/17/21 19:47 swelling,skin"turns beet red", nausea DISSOLVING SUTURES Allergy INFECTION Uncoded 06/17/21 19:47 Physical Exam Vitals: Vital Signs Temp Pulse Pulse Resp BP BP Pulse Ox 07/12/21 11:54 64 07/12/21 11:42 64 07/12/21 11:41 97.8 F 65 18 103/50 98 07/12/21 08:05 68 07/12/21 07:51 72 07/12/21 05:05 97.5 F L 62 18 120/63 98 07/11/21 23:34 74 162/67 07/11/21 20:35 70 20 07/11/21 20:20 98.1 F 76 20 152/67 94 L 07/11/21 20:18 72 07/11/21 20:02 74 07/11/21 18:37 73 12 128/78 96 07/11/21 18:00 79 16 170/87 99 07/11/21 16:09 69 07/11/21 16:02 70 07/11/21 15:00 72 16 165/73 94 L Intake and Output 07/11/21 07/12/21 07/12/21 22:59 06:59 14:59 Intake Total 100 Balance 100 Intake: Intake, IV Titration 100 Amount Potassium Chloride 10 meq 100 In Water For Injection 1 100ml.bag @ 100 mls/hr IVPB Q1HR [facility] Rx#: [id number] Other: Voiding Method Diaper Diaper Weight 99.79 kg Results CBC & Chem 7: 07/12/21 06:47 07/12/21 06:47 Labs: Abnormal Lab Results - Last 24 Hours (Table) 07/12/21 07/12/21 07/12/21 Range/Units 06:47 06:47 06:47 WBC 20.3 H (3.8-10.6) k/uL RBC 3.44 L (3.80-5.40) m/uL Hgb 10.7 L (11.4-16.0) gm/dL Hct 32.4 L (34.0-46.0) % Neutrophils # 18.1 H (1.3-7.7) k/uL Est GFR (CKD-EPI)AfAm 45.1 L (60.0-200.0) Est GFR (CKD-EPI)NonAf 38.9 L (60.0-200.0) Glucose 245 H (70-110) mg/dL Triglycerides 166.00 H (0.00-149.00) mg/dL Procalcitonin 0.27 H (0.02-0.09) ng/mL Microbiology - Last 24 Hours (Table) 07/11/21 09:16 Blood Culture - Preliminary Blood No Growth after 24 hours 07/11/21 09:32 Blood Culture - Preliminary Blood No Growth after 24 hours 07/11/21 00:00 Urine Culture - Preliminary Urine,Voided
[2021-07-13 10:43] LABS: HCT 33.2 % (34.0-46.0); HGB 10.8 gm/dL (11.4-16.0); MCH 31.1 pg (25.0-35.0); MCHC 32.4 g/dL (31.0-37.0); Mean Platelet Volume 7.7; Platelet Count 285 k/uL (150-450); RBC 3.46 m/uL (3.80-5.40); RDW 14.8 % (11.5-15.5); WBC 11.8 k/uL (3.8-10.6)
[2021-07-13 11:02] LABS: Magnesium 2.1 mg/dL (1.6-2.3); Potassium 3.8 mmol/L (3.5-5.1)
--- NOTE | 2021-07-13 11:39 | CT ---
EXAMINATION TYPE: CT abdomen pelvis wo con DATE OF EXAM: 07/13/2021 COMPARISON: 06/06/2021 HISTORY: 81-year-old female Abdominal pain with fever CT DLP: 1626 mGycm. Automated exposure control for dose reduction was used. TECHNIQUE: Contiguous axial scanning of the abdomen and pelvis without IV contrast. Coronal and sagit brii reconstructions performed. FINDINGS: Heart mildly enlarged with small pericardial effusion measuring up to 9 mm posteriorly. This appears present back to at least 10/29/2020. Coronary artery calcifications are present. Prominent dependent atelectasis. A couple 4 mm left basilar pulmonary nodules, axial image 22 and 25 and also right middle lobe, axial image 19, appear to have been present on 10/29/2020 but not as well-visualized. 6 month follow-up can be performed. Suspected prior Lorri fundoplication. Noncontrast appearance of the liver, adrenal glands, spleen with tiny hilar splenule, and atrophic pa ncreas show no gross abnormality by noncontrast CT. There is bilateral renal cortical thinning compatible with chronic medical renal disease. Rounded soft tissue density midpole left kidney measuring 2 cm, unchanged from 06/06/2021. 1 cm high density lesion of the lower pole right kidney versus 1.7 cm on 06/06/2021. This may represe nt a hemorrhagic cyst. Possible rounded soft tissue area measuring 2.5 cm and the right lower lobe just above. Both of these All of these lesions in the kidneys should be followed to ensure stability Possible severe stenosis proximal left renal artery and moderate proximal right renal artery. Moderate stenosis origin of the celiac axis and mild at the origin of the SMA. 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 Cholecystectomy clips. No dilated small bowel, free fluid, or free air. No mesenteric or retroperitoneal lymphadenopathy. Normal appendix. There is moderate stool within the right side of the pelvis. Left-sided colonic dive rticulosis. Staple line from prior resection and re-anastomosis at the mid sigmoid colon. No pericolo parris inflammatory change. Subcutaneous air along the anterior abdominal wall and some areas of soft tissue nodularity likely re lating to subcutaneous injections. Mild skin thickening anterior lower abdominal skin, axial image 149. Correlation can be made to exclu de cellulitis. Bladder partially distended. Uterus surgically absent. Neither ovary clearly seen. Mild pelvic floor relaxation. No abnormal fluid collection in the pelvis or pelvic lymphadenopathy. Bones: Osteopenia. Moderate degenerative change of both hips. Degenerative bony ankylosis right SI navid int. Superior endplate deformity L2 with mild retropulsion into the ventral spinal canal. Additionall y the lower thoracic spine. Findings are new compared to 11/05/2013 but still age indeterminate. IMPRESSION: 1. Prominent dependent opacities in the visualized lower lungs, likely atelectasis. A few 4 mm pulmo nary nodules in the lung bases suspected to have been present on 10/29/2020 but not as well-visualized . 6 month follow-up CT chest to reassess. 2. Rounded soft tissue densities in the kidneys measuring up to 2.5 cm. These could represent lobula tions of the renal parenchyma on a background of chronic kidney disease. At least one is suspected to represent a hemorrhagic cyst measuring 1.7 cm. Six-month follow-up CT to ensure stability and exclud e underlying solid masses. 3. Moderate stool in the right side of the colon. Left-sided colonic diverticulosis without acute di verticulitis. Previous resection and re-anastomosis of the mid sigmoid colon. 4. Skin thickening focally along the anterior lower abdomen. Correlate to exclude cellulitis. Additi onal changes are present slightly higher along the abdominal wall suggesting subcutaneous injections. 5. Superior endplate deformity of L2 with mild retropulsion into the ventral spinal canal. Suspect s ubacute to chronic injury. Noted to be new compared to 11/05/2013. Clinically correlate as to acuity.
[2021-07-13 14:05] VITALS: BP 129/52; RESP 18; TEMP 97.9
[2021-07-13] MEDS ORDERED: polyethylene glycoL 3350 17 GM POWD.PACK PO STA (15:12)
[2021-07-13 15:45] VITALS: PULSE 70
--- NOTE | 2021-07-13 16:31 | PN ---
PROGRESS NOTE DATE OF SERVICE: 07/13/2021 REASON FOR FOLLOWUP: Leukocytosis and a question of lower extremity cellulitis. INTERVAL HISTORY: The patient is afebrile. The patient was ordered to have a CT of abdomen and pelvis with contrast in view of her symptoms and elevated white count. The patient refused contrast. CT was done without, even though it was ordered to be canceled. The patient is currently feeling better. No further burning pain or vomiting. No chest pain, shortness of breath or cough. No abdominal pain or pain to the lower extremities. Feeling better, wants to go home. PHYSICAL EXAMINATION: Blood pressure 129/52 with a pulse of 73, temperature 97.9. She is 96% on 4 L nasal cannula. General description is an elderly female up in the chair in no distress. Respiratory system: Unlabored breathing, decreased breath sounds at the base. No wheeze. Heart S1, S2. Regular rate and rhythm. Abdomen soft, no tenderness. Lower extremities currently wrapped up. No obvious drainage on the dressing. LABS: Hemoglobin is 10.8, white count 11.8. CT of abdomen and pelvis shows multiple abnormalities. No evidence of any colitis. DIAGNOSTIC IMPRESSION AND PLAN: Patient with elevated white count. Concern for possible lower extremity cellulitis in this patient whose white count has responded to IV clindamycin. That will be transitioned to oral clindamycin for about a week. Advised to increase the probiotic and yogurt intake. She did have multiple abnormalities on the CT, a copy of which will be provided to the patient so her primary physician can follow up on it. Continue with supportive care. MMODL / IJN: [id number] /
--- NOTE | 2021-07-13 18:46 | P.PN ---
Subjective Progress Note Date: 07/13/21 Principal diagnosis: Atypical chest pain This a very pleasant 81-year-old female patient who follows with Dr. Pearson is her primary care provider. She has a history of chronic obstructive pulmonary disease/asthma, hyperlipidemia, hypertension, osteoarthritis, rheumatoid arthrit is, pulmonary embolism, obstructive sleep apnea retained on CPAP, hypothyroidism, melanoma resected from her back, chronic diastolic congestive heart failure, chronic lower extremity edema with cellulitis and open wounds at times. She was recently discharged from here on 07/03/2021 following acute on chronic hypoxic respiratory failure secondary to acute exacerbation diastolic congestive heart failure and chronic obstructive pulmonary disease. She represented to the emergency room last evening with complaints of chest pain and shortness of breath. She described it as epigastric discomfort and burning up into her throat and across her chest. Stating she could not catch her breath. Chest x-ray showed no acute cardiopulmonary disease. Troponins were negative 3. EKG revealed nonspecific ST and T wave abnormalities. White count 11.8. Hemoglobin 11.5. Sodium 137. Initial potassium 2.5. Currently 2.9. Creatinine 0.97. Glucose 139. Picktet virus not detected. The patient is vac cinated. Urine culture pending. She is seen today in consultation in the emergency department. She is currently sitting up in bed having breakfast. Awake and alert in no acute distress. Currently denies any chest pain or worsening shortness of breath. She is anxious to go home. The patient is seen today the 2020 in follow-up on the regular medical floor. She is currently sitting up in a chair at the bedside. Awake and alert in no acute distress. She denies any worsening shortness of breath cough or congestion. Maintaining good O2 saturations up to 98% on 4 L/m per nasal cannula. Afebrile. Hemodynamically stable. Urine culture pending. Blood cultures reveal no growth to date. White count 20.3. Hemoglobin 10.7. Sodium 139. Potassium 3.7. Creatinine 1.3. Pro-calcitonin 0.27. She continues on DuoNeb inhalations, Symbicort. Heparin for DVT prophylaxis. Antibiotics in the form of clindamycin. The patient is seen today 07/13/2021 in follow-up on the regular medical floor. She is currently sitting up in chair at the bedside. Awake and alert in no acute distress. No plans of shortness of breath, cough or congestion. She is maintaining her oxygen at her home dose of 4 L/m per nasal cannula. She's been on clindamycin. Continue bronchodilators. Computed tomography scan of the abdomen and pelvis revealed prominent dependent opacities in the lower lung most likely atelectasis. A few 4 mm pulmonary nodules in the bases. Present in October 2020. Rounded soft she densities in the kidneys. White count 11.8. Hemoglobin 10.8. Potassium 3.8. Objective - Vital Signs Vital signs: Vital Signs Temp 97.9 F 07/13/21 12:47 Pulse 70 07/13/21 15:45 Resp 18 07/13/21 12:47 BP 129/52 07/13/21 12:47 Pulse Ox 96 07/13/21 12:47 Intake & Output 07/12/21 07/13/21 07/13/21 18:59 06:59 18:59 Intake Total 550 250 Balance 550 250 Intake: Intake, IV Titration 50 Amount Clindamycin 300 mg In 50 Dextrose 5% in Water 50 ml @ 50 mls/hr IVPB Q8H [facility] Rx#:[id number] Oral 500 250 Other: Voiding Method Diaper Bedside Commode Bedside Commode Diaper Diaper # Voids 2 3 # Bowel Movements 1 - Exam GENERAL EXAM: Alert, pleasant 81-year-old female patient, up in a chair at the bedside, on 4 L nasal cannula, comfortable in no apparent distress. HEAD: Normocephalic. EYES: Normal reaction of pupils, equal size. NOSE: Clear with pink turbinates. THROAT: No erythema or exudates. NECK: No masses, no JVD. CHEST: No chest wall deformity. LUNGS: Equal air entry with no crackles, wheeze or rhonchi. Diminished.. CVS: S1 and S2 normal with no audible murmur, regular rhythm. ABDOMEN: No hepatosplenomegaly, normal bowel sounds, no guarding or rigidity. SPINE: No scoliosis or deformity SKIN: No rashes CENTRAL NERVOUS SYSTEM: No focal deficits, tone is normal in all 4 extremities. EXTREMITIES: There is 1+ peripheral edema. Changes of chronic venous stasis, dressing is dry and intact to the lower extremities No clubbing, no cyanosis. Peripheral pulses are intact. - Labs CBC & Chem 7: 07/13/21 10:29 07/13/21 10:29 Labs: Abnormal Lab Results - Last 24 Hours (Table) 07/13/21 Range/Units 10:29 WBC 11.8 H (3.8-10.6) k/uL RBC 3.46 L (3.80-5.40) m/uL Hgb 10.8 L (11.4-16.0) gm/dL Hct 33.2 L (34.0-46.0) % Microbiology - Last 24 Hours (Table) 07/11/21 00:00 Urine Culture - Preliminary Urine,Voided Gram Neg Bacilli 07/11/21 09:16 Blood Culture - Preliminary Blood No Growth after 48 hours 07/11/21 09:32 Blood Culture - Preliminary Blood No Growth after 48 hours Assessment and Plan Assessment: 1 Atypical chest pain and shortness of breath suspect secondary to acid reflux 2 Hypokalemia on diuretics in the outpatient setting 3 Recent admission for acute on chronic hypoxemic respiratory failure secondary to an acute exacerbation of diastolic congestive heart failure/COPD 4 Rheumatoid arthritis 5 Obstructive sleep apnea nontolerant to CPAP therapy 6 History of skin cancer in the form of squamous cell carcinoma and basal cell carcinoma and melanoma, all resected 7 History of diverticular disease 8 Gastroesophageal reflux disease 9 Remote history of pulmonary embolism, in a postoperative setting 10 Hypertension 11 Hypothyroidism 12 Chronic back pain has been on [place] 7.5 and she'll be given 1 tablet every 24 hours on an as-needed basis for ongoing pain. 13 Coronary artery disease with nonocclusive disease based on a cardiac catheterization from 2018 with mild disease involving the LAD, preserved LV function Plan: The patient was seen and evaluated by Dr. Fitzgerald For discharge from the pulmonary standpoint Follow up with Dr. Pearson as scheduled I, the cosigning physician, performed a history & physical examination of the patient. Lungs sounds are clear but diminished. Maintaining good O2 saturations in the 90s on 4 L/m per nasal cannula. I discussed the assessment and plan of care with my nurse practitioner, Lashae Blackburn. I attest to the above note as dictated by her.
[2021-07-13] MEDS ORDERED: DOCUSATE 100 MG CAP PO SCH (21:00)
--- NOTE | 2021-07-13 22:52 | P.DS ---
Providers Date of admission: 07/11/21 03:14 Attending physician: Victoria Khan Consults: 07/11/21 09:43 Consult Physician Urgent Consulting Provider: Tony Fitzgerald Consult Reason/Comments: copd, known to your service Do you want consulting provider notified?: Yes 07/11/21 15:44 Consult Physician Urgent Consulting Provider: Wade Hough Consult Reason/Comments: possible leg cellulitis Do you want consulting provider notified?: Yes Primary care physician: Ying Pearson Hospital Course: Diagnoses: acute Bilateral leg cellulitis Most likely asymptomatic bacteriuria, less likely Acute urinary tract infection Sepsis with fever and leukocytosis Mild acute kidney injury Severe hypokalemia on admission, improving Hypertension Hyperlipidemia History of GERD COPD Chronic heart failure History of osteoarthritis History of pulmonary embolism not on anticoagulation History of rheumatoid arthritis History of sleep apnea on CPAP Hypothyroidism Obesity with BMI of 34.5 Hospital course: This is a pleasant 81 years old female with past medical history of Asthma, Heart Failure, COPD, GERD, Hyperlipidemia, Hypertension, Osteoarthritis , Pulmonary Embolus not on anticoagulation, Rheumatoid Arthritis, Sleep Apnea/CPAP/BIPAP, hypothyroidism She sees frame assembler Dr. Kohli Patient's presents because she was feeling shortness of breath and epigastric abdominal pain of one-day duration which is resolved completely. COPD suspected so pulmonary team were consulted. Her IV steroids and front patient at baseline with her shortness of breath and abdominal pain secondary to her COPD which is resolved. However she had fever and leukocytosis on admission with source most likely was cellulitis of the legs on both sides as they were warm and pink and painful. Patient was started on cefazolin but she develops ALLERGY after 1 day and it was stopped and patient informed to avoid it and she agrees. Antibiotics to clindamycin and her leg cellulitis showed significant improvement, today her temperature close to normal, not warm, pink discoloration is improving either less painful and patient feels better Infectious disease team came consult recommended CT of the abdomen to rule out any intra-abdominal source of infection. No signs of infection was found to seat of the abdomen, there was suspicion of some abdominal wall cellulitis but clinically there is no redness or swelling in the abdominal wall. Also CT showed several lesions including pulmonary nodules and patient has appointment with her PCP and anesthesiologist assistant certified at the same time Dr. Chamorro on July 20, also she has bilateral renal cyst, hemorrhagic cyst is suspected with recommendation for repeat CAT scan in 6 months, patient informed with recommendation to follow up with urologist Dr. Arreola in 1-2 weeks and she agrees to call and make appointment. She did not want to wait to see Dr. Sanchez in the hospital and she was to follow up with him in the office. The same thing with Dr. 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 Patient states she is back to her baseline. Pulmonology team and infectious disease and clear for discharge. Patient will be discharged on 7 days of clindamycin Problems and management plan were discussed with the patient and he verbalized understanding and acceptance Patient was found stable and can be discharged home however he needs follow-up as an outpatient. Patient was instructed to follow up with PCP Dr. Chamorro within one week and patient agrees with the appointments made for her on 07/20. Also patient was instructed to follow up with Dr. Arreola urologist and Dr. Keys orthopedic in 2 weeks and she agrees to call and make her on appointments. Appointments could not be made today because it is after and before we can't and all offices were closed Physical exam Gen: patient is a AAOx3, no distress CVS: S1-S2, RRR, no murmur Lungs: B/L CTA, no wheezing Abdomen: soft, no distention, no tenderness, positive bowel sounds Extremity: no leg edema or induration. Improving bilateral leg cellulitis Time spent more than 35 minutes coughing which is dry for one day duration associated with burning sensation in the center of her chest which is now much better. Patient does not describe as chest pain stating and it is only burning. Denies nausea vomiting or diarrhea or abdominal pain. She states she has COPD before. He denies any urinary symptoms, no dysuria or urgency. No suprapubic tenderness However both of her legs are pink and warm with scaling and there is some bruises with a scar behind the right upper leg posteriorly, for 1 month as per patient She denies smoking, alcohol or illicit drugs She said she takes Lasix 40 mg twice daily at home although it is documented once daily Vitals are stable on admission. However patient had low-grade fever of 100 upon admission also with mild leukocytosis at 13.7 and 11.8. Sodium 134, potassium 2.5, creatinine elevated to 1.1 with baseline 0.7-0.9 Troponin are negative x3 . 0.0-6, 0.0-6 and 0.0-4 ProBNP is 554 Urinalysis is suspicious for infection EKG showing normal sinus rhythm at [address]-T changes. Chest x-ray: No acute process. Patient already started normal saline and potassium replacement per protocol M APS was checked and she is on [place] 7.5 07/12/2021 Patient breathing is stable. Hemodynamically stable. No more fever. Patient she had fever of 100 upon admission. Her both legs look the same as yesterday as she could not get cefazolin because of its ALLERGIC reaction to it. Cefazolin was stopped on patient informed that she is ALLERGIC to cefazolin. Antibiotics was adjusted to clindamycin. procalcitonin is slightly elevated at 0.27. WBC jumped 11 up to 20 but also because she kept steroids yesterday. Patient was cleared for discharge by pulmonary team, we will we will discharge the patient was she's also cleared by infectious disease team. Possible 24-48hr once cleared. Also patient refused to go to rehab if indicated and states she already have home care at home. Patient Condition at Discharge: Good Plan - Discharge Summary Discharge Rx Participant: Yes New Discharge Prescriptions: New Clindamycin [Cleocin] 300 mg PO Q8H #42 cap Albuterol Inhaler [Ventolin Hfa Inhaler] 1 puff INHALATION RT-QID PRN #8 gm PRN Reason: Shortness Of Breath Continue Levothyroxine Sodium [Synthroid] 125 mcg PO DAILY amLODIPine [Norvasc] 10 mg PO DAILY Albuterol Sulfate [Albuterol Sulfate Hfa] 2 puff PO RT-Q6H PRN PRN Reason: Shortness Of Breath Sertraline [Zoloft] 50 mg PO HS Spironolactone 50 mg PO DAILY carvediloL [Coreg*] 12.5 mg PO BID hydrALAZINE HCL [Apresoline] 25 mg PO TID tab HYDROcodone/APAP 7.5-325MG [[place] 7.5-325] 1 tab PO QID PRN PRN Reason: Pain L.acidoph,Paracasei, B.lactis [Probiotic] 1 cap PO DAILY Fluticasone/Salmeterol [Advair Hfa 115-21 Mcg Inhaler] 2 puff INHALATION RT-B ID cloNIDine HCL [Catapres] 0.3 mg PO BID Mirtazapine [Remeron] 15 mg PO HS Furosemide [Lasix] 40 mg PO DAILY Docusate [Colace] 100 mg PO DAILY Simvastatin 40 mg PO HS Multivit-Min/Iron/Folic/Lutein [Centrum Silver Women Tablet] 1 tab PO DAILY Elderberry Fruit and Flower [Black Elderberry 575 mg Cap] 1,150 mg PO BID Clotrimazole/Betamethasone Dip [Lotrisone Cream] 1 applic TOPICAL BID Discharge Medication List Levothyroxine Sodium [Synthroid] 125 mcg PO DAILY 10/18/20 [History] amLODIPine [Norvasc] 10 mg PO DAILY 10/18/20 [History] Albuterol Sulfate [Albuterol Sulfate Hfa] 2 puff PO RT-Q6H PRN 06/03/21 [History] Sertraline [Zoloft] 50 mg PO HS 06/03/21 [History] cloNIDine HCL [Catapres] 0.3 mg PO BID 06/03/21 [History] Docusate [Colace] 100 mg PO DAILY 06/29/21 [History] Furosemide [Lasix] 40 mg PO DAILY 06/29/21 [History] Mirtazapine [Remeron] 15 mg PO HS 06/29/21 [History] Spironolactone 50 mg PO DAILY 06/29/21 [History] carvediloL [Coreg*] 12.5 mg PO BID 06/29/21 [History] hydrALAZINE HCL [Apresoline] 25 mg PO TID tab 07/03/21 [Rx] Clotrimazole/Betamethasone Dip [Lotrisone Cream] 1 applic TOPICAL BID 07/10/21 [History] Elderberry Fruit and Flower [Black Elderberry 575 mg Cap] 1,150 mg PO BID 07/10/21 [History] Fluticasone/Salmeterol [Advair Hfa 115-21 Mcg Inhaler] 2 puff INHALATION RT-BID 07/10/21 [History] HYDROcodone/APAP 7.5-325MG [[place] 7.5-325] 1 tab PO QID PRN 07/10/21 [History] L.acidoph,Paracasei, B.lactis [Probiotic] 1 cap PO DAILY 07/10/21 [History] Multivit-Min/Iron/Folic/Lutein [Centrum Silver Women Tablet] 1 tab PO DAILY 07/10/21 [History] Simvastatin 40 mg PO HS 07/10/21 [History] Albuterol Inhaler [Ventolin Hfa Inhaler] 1 puff INHALATION RT-QID PRN #8 gm 07/13/21 [Rx] Clindamycin [Cleocin] 300 mg PO Q8H #42 cap 07/13/21 [Rx] Follow up Appointment(s)/Referral(s): Ying Pearson MD [Primary Care Provider] - 07/20/21 2:15 pm Fausto Keys DO [Doctor of Osteopathic Medicine] - 2 Weeks (Spine surgeon for L2 deformity) [facility], [NON-STAFF] - 1 Week Johan Mims MD [STAFF PHYSICIAN] - 2 Weeks (Office is closed today, 07-13-21. Please call the office [phone], to schedule your appointment ) Patient Instructions/Handouts: Clindamycin (By mouth), Albuterol (By breathing), Heart Healthy Diet (DC), Hypokalemia (DC) Activity/Diet/Wound Care/Special Instructions: heart healthy diet activity is restricted till you see your doctor Discharge Disposition: HOME WITH HOME HEALTH SERVICES
== END 2021-07-13 17:00 | disposition home health service (06) | DRG 872 ==
LOC: EC 21:58 → 5NMEDONC 07-11 03:14
PROVIDERS: ADMIT Hospitalist; ATTEND Hospitalist
DX: A41.9 Sepsis, unspecified organism (principal); N17.9 Acute kidney failure, unspecified; I50.32 Chronic diastolic (congestive) heart failure; L03.116 Cellulitis of left lower limb; L03.115 Cellulitis of right lower limb; J98.11 Atelectasis; I11.0 Hypertensive heart disease with heart failure; J44.9 Chronic obstructive pulmonary disease, unspecified; M06.9 Rheumatoid arthritis, unspecified; Z20.822 Contact with and (suspected) exposure to COVID-19; E87.6 Hypokalemia; G47.33 Obstructive sleep apnea (adult) (pediatric); K21.9 Gastro-esophageal reflux disease without esophagitis; E89.0 Postprocedural hypothyroidism; E78.5 Hyperlipidemia, unspecified; R82.71 Bacteriuria; R91.8 Other nonspecific abnormal finding of lung field; G89.29 Other chronic pain; M54.9 Dorsalgia, unspecified; M19.90 Unspecified osteoarthritis, unspecified site; K57.90 Diverticulosis of intestine, part unspecified, without perforation or abscess without bleeding; I25.10 Atherosclerotic heart disease of native coronary artery without angina pectoris; F41.9 Anxiety disorder, unspecified; N28.1 Cyst of kidney, acquired; N60.19 Diffuse cystic mastopathy of unspecified breast; I83.90 Asymptomatic varicose veins of unspecified lower extremity; E66.9 Obesity, unspecified; Z68.34 Body mass index [BMI] 34.0-34.9, adult; Z99.81 Dependence on supplemental oxygen; Z79.890 Hormone replacement therapy; Z79.51 Long term (current) use of inhaled steroids; Z79.899 Other long term (current) drug therapy; Z86.711 Personal history of pulmonary embolism; Z85.828 Personal history of other malignant neoplasm of skin; Z85.820 Personal history of malignant melanoma of skin; Z87.01 Personal history of pneumonia (recurrent); Z87.19 Personal history of other diseases of the digestive system; Z90.49 Acquired absence of other specified parts of digestive tract; Z87.448 Personal history of other diseases of urinary system; Z90.710 Acquired absence of both cervix and uterus; Z87.42 Personal history of other diseases of the female genital tract; Z96.652 Presence of left artificial knee joint; Z90.79 Acquired absence of other genital organ(s); Z90.721 Acquired absence of ovaries, unilateral; Z86.69 Personal history of other diseases of the nervous system and sense organs; Z87.39 Personal history of other diseases of the musculoskeletal system and connective tissue; Z89.021 Acquired absence of right finger(s); Z87.891 Personal history of nicotine dependence; Z98.890 Other specified postprocedural states; Z88.6 Allergy status to analgesic agent; Z88.4 Allergy status to anesthetic agent; Z88.1 Allergy status to other antibiotic agents; Z88.5 Allergy status to narcotic agent; Z88.2 Allergy status to sulfonamides; Z88.8 Allergy status to other drugs, medicaments and biological substances; Z91.048 Other nonmedicinal substance allergy status; Z83.3 Family history of diabetes mellitus; Z82.49 Family history of ischemic heart disease and other diseases of the circulatory system; Z82.5 Family history of asthma and other chronic lower respiratory diseases; Z80.1 Family history of malignant neoplasm of trachea, bronchus and lung
CPT/HCPCS: 36415; 71046; 74176; 80048; 80053; 80061; 81001; 83690; 83735; 83880; 84132; 84145; 84484; 85025; 85027; 85610; 85730; 87040; 87077; 87086; 87186; 87635; 93005; 93970; 94640; 99285

== ENCOUNTER 2021-07-14 13:16 | Emergency (ER) | payer MEDICARE ==
[2021-07-14 13:38] VITALS: RESP 18; TEMP 97.8
[2021-07-14 14:24] LABS: Appearance,Urine Clear (Clear); Bacteria,Urine Rare /hpf; Bilirubin,Urine Negative (Negative); Blood,Urine Negative (Negative); Color,Urine Light Yellow; Glucose,Urine (UA) Negative (Negative); Hyaline Casts,Urine 3 /lpf (0-2); Ketones,Urine Negative (Negative); Leukocyte Esterase,Urine Large (Negative); Mucus,Urine Rare /hpf; Nitrite,Urine Negative (Negative); PH, Urine 6.5 (5.0-8.0); Protein,Urine Negative (Negative); RBC,Urine 8 /hpf (0-5); Specific Gravity,Urine 1.008 (1.001-1.035); Squamous Epithelial Cell,Urine 1 /hpf (0-4); Urobilinogen,Urine <2.0 mg/dL (<2.0); WBC,Urine 108 /hpf (0-5)
[2021-07-14] MEDS ORDERED: CIPROFLOXACIN HCL 500 MG TAB PO STA (14:56)
--- NOTE | 2021-07-14 14:58 | ED ---
General Adult HPI - General Chief complaint: Abdominal Pain Stated complaint: Possible UTI Time Seen by Provider: 07/14/21 13:52 Source: patient, family Mode of arrival: wheelchair Limitations: no limitations - History of Present Illness Initial comments: 81-year-old female with a complicated past medical history presents to the emergency room for a chief complaint of UTI symptoms. Patient states she was just discharged from the hospital. She states that at that time she had maybe a UTI but since she did not have symptoms they did not treat her. She is currently on clindamycin for cellulitis of the legs. Patient states that today she started to get urinary frequency and urgency. States it herrera as she is urinating. Patient denies any flank or abdominal pain. Denies fevers or chills. Patient states she usually needs Cipro for UTI.Patient has no other complaints at this time including shortness of breath, chest pain, abdominal pain, nausea or vomiting, headache, or visual changes. - Related Data Home Medications Medication Instructions Recorded Confirmed Levothyroxine Sodium [Synthroid] 125 mcg PO DAILY 10/18/20 07/10/21 amLODIPine [Norvasc] 10 mg PO DAILY 10/18/20 07/10/21 Albuterol Sulfate [Albuterol 2 puff PO RT-Q6H PRN 06/03/21 07/10/21 Sulfate Hfa] Sertraline [Zoloft] 50 mg PO HS 06/03/21 07/10/21 cloNIDine HCL [Catapres] 0.3 mg PO BID 06/03/21 07/10/21 Docusate [Colace] 100 mg PO DAILY 06/29/21 07/10/21 Furosemide [Lasix] 40 mg PO DAILY 06/29/21 07/10/21 Mirtazapine [Remeron] 15 mg PO HS 06/29/21 07/10/21 Spironolactone 50 mg PO DAILY 06/29/21 07/10/21 carvediloL [Coreg*] 12.5 mg PO BID 06/29/21 07/10/21 Clotrimazole/Betamethasone Dip 1 applic TOPICAL BID 07/10/21 07/10/21 [Lotrisone Cream] Elderberry Fruit and Flower [Black 1,150 mg PO BID 07/10/21 07/10/21 Elderberry 575 mg Cap] Fluticasone/Salmeterol [Advair Hfa 2 puff INHALATION RT-BID 07/10/21 07/10/21 115-21 Mcg Inhaler] HYDROcodone/APAP 7.5-325MG [[place] 1 tab PO QID PRN 07/10/21 07/10/21 7.5-325] L.acidoph,Paracasei, B.lactis 1 cap PO DAILY 07/10/21 07/10/21 [Probiotic] Multivit-Min/Iron/Folic/Lutein 1 tab PO DAILY 07/10/21 07/10/21 [Centrum Silver Women Tablet] Simvastatin 40 mg PO HS 07/10/21 07/10/21 Previous Rx's Medication Instructions Recorded hydrALAZINE HCL [Apresoline] 25 mg PO TID tab 07/03/21 Albuterol Inhaler [Ventolin Hfa 1 puff INHALATION RT-QID PRN #8 gm 07/13/21 Inhaler] Clindamycin [Cleocin] 300 mg PO Q8H #42 cap 07/13/21 Ciprofloxacin HCl [Cipro] 500 mg PO BID 7 Days #14 tab 07/14/21 Allergies Allergy/AdvReac Type Severity Reaction Status Date / Time adhesive Allergy SKIN Verified 07/14/21 13:37 REDDENS & BLISTERS- PAPER TAPE OKAY azithromycin [From Zithromax] Allergy Nausea & Verified 07/14/21 13:37 Vomiting meperidine HCl [From Demerol] Allergy Nausea & Verified 07/14/21 13:37 Vomiting morphine Allergy Nausea & Verified 07/14/21 13:37 Vomiting Sulfa (Sulfonamide Allergy Nausea & Verified 07/14/21 13:37 Antibiotics) Vomiting tree and shrub pollen Allergy Cough Verified 07/14/21 13:37 aspirin AdvReac STOMACH Verified 07/14/21 13:37 HERRERA anesthesia Allergy facial/arms/hands Uncoded 07/14/21 13:37 swelling,skin"turns beet red", nausea DISSOLVING SUTURES Allergy INFECTION Uncoded 07/14/21 13:37 Review of Systems ROS Statement: Those systems with pertinent positive or pertinent negative responses have been documented in the HPI. ROS Other: All systems not noted in ROS Statement are negative. Past Medical History Past Medical History: Asthma, Cancer, Heart Failure, COPD, GERD/Reflux, Hyperlipidemia, Hypertension, Osteoarthritis (OA), Pneumonia, Pulmonary Embolus (PE), Rheumatoid Arthritis (RA), Sleep Apnea/CPAP/BIPAP, Thyroid Disorder Additional Past Medical History / Comment(s): COPD/asthma, chronic cough, hypothyroidism, history of basal cell carcinoma of the skin resected, history of melanoma of the skin involving the back, resected, history of diverticulosis/diverticulitis, history of fibrocystic disease, obstructive sleep apnea can sleep with the CPAP, varicose veins in lower extremities, hypothyroidism History of Any Multi-Drug Resistant Organisms: None Reported Past Surgical History: Bladder Surgery, Bowel Resection, Cholecystectomy, Heart Catheterization, Hernia Repair, Hysterectomy, Joint Replacement, Orthopedic Surgery Additional Past Surgical History / Comment(s): LEFT KNEE REPLACED, PARTIAL THYROIDECTOMY,HIATAL HERNIA REPAIR 07/2013, ABDOMINAL HERNIA REPAIR,MULTIPLE SKIN LESIONS-PT STATED HAS HAS BASAL,SQUAMOUS AND MELANOMA SKIN CA ( NECK,RT UPPER & LOWER THIGH,LT ARM,RT ARM, face, back-melanoma)SKIN GRAFTS TO VINOD.LEGS- LT EAR-LT MIDDLE FINGER,ACHILLES TENDON surgery. RT OVARY 1 TUBE REMOVED, SIGMOID RESECTION D/T BOWEL OBSTRUCTION,RT LITLE FINGER AMP, Past Anesthesia/Blood Transfusion Reactions: Previous Problems w/ Anesthesia, Motion Sickness, Postoperative Nausea & Vomiting (PONV) Additional Past Anesthesia/Blood Transfusion Reaction / Comment(s): STATES "HAS HAD SWELLING TO FACE,HANDS,ARMS AND SKIN TURNS "BEET RED"WITH ANESTHESIA-with IV sedation. states no problems with last surgery at [facility] 01/2017-anesthesia records on chart Past Psychological History: Anxiety Smoking Status: Former smoker Past Alcohol Use History: None Reported Past Drug Use History: None Reported - Past Family History Mother Family Medical History: Diabetes Mellitus Additional Family Medical History / Comment(s): HEART PROBLEMS Sister(s) Family Medical History: Diabetes Mellitus, Myocardial Infarction (DE) Additional Family Medical History / Comment(s): EMPHYSEMA Father Family Medical History: Cancer Additional Family Medical History / Comment(s): LUNG CA. General Exam Limitations: no limitations General appearance: alert, in no apparent distress Head exam: Present: atraumatic Eye exam: Present: normal appearance ENT exam: Present: normal exam, TM's normal bilaterally Neck exam: Present: normal inspection, full ROM. Absent: tenderness Respiratory exam: Present: normal lung sounds bilaterally. Absent: respiratory distress, wheezes Cardiovascular Exam: Present: regular rate, normal rhythm, normal heart sounds GI/Abdominal exam: Present: soft, normal bowel sounds. Absent: distended, tenderness Back exam: Absent: CVA tenderness (R), CVA tenderness (L) Course Vital Signs 07/14/21 13:32 Temperature 97.8 F Pulse Rate 59 L Respiratory 18 Rate Blood Pressure 158/80 O2 Sat by Pulse 97 Oximetry Medical Decision Making - Medical Decision Making Vitals are stable. Patient is on 4 L oxygen which is her baseline. Urinalysis does show evidence of infection. Urine was cultured throughout her hospital stay and was positive for gram-negative bacteria. However there is no sensitivity associated. Patient states she usually needs Cipro. We will start her on this and have her continue the clindamycin for cellulitis. She will follow up with her doctor. She will return here for any worsening symptoms. - Lab Data Lab Results 07/14/21 Range/Units Unknown Urine Color Light Yellow Urine Appearance Clear (Clear) Urine pH 6.5 (5.0-8.0) Ur Specific [place] 1.008 (1.001-1.035) Urine Protein Negative (Negative) Urine Glucose (UA) Negative (Negative) Urine Ketones Negative (Negative) Urine Blood Negative (Negative) Urine Nitrite Negative (Negative) Urine Bilirubin Negative (Negative) Urine Urobilinogen <2.0 (<2.0) mg/dL Ur Leukocyte Esterase Large H (Negative) Urine RBC 8 H (0-5) /hpf Urine WBC 108 H (0-5) /hpf Ur Squamous Epith Cells 1 (0-4) /hpf Urine Bacteria Rare H (None) /hpf Hyaline Casts 3 H (0-2) /lpf Urine Mucus Rare H (None) /hpf Disposition Clinical Impression: UTI (urinary tract infection) Disposition: HOME SELF-CARE Condition: Good Instructions (If sedation given, give patient instructions): Urinary Tract Infection in Women (ED) Additional Instructions: Continue to take both antibiotics. Follow-up with your doctor. Return to the emergency room for any worsening symptoms. Prescriptions: Ciprofloxacin HCl [Cipro] 500 mg PO BID 7 Days #14 tab Is patient prescribed a controlled substance at d/c from ED?: No Referrals: Ying Pearson MD [Primary Care Provider] - 1-2 days Time of Disposition: 14:56
[2021-07-14 15:09] VITALS: BP 136/78; PULSE 80
== END 2021-07-14 15:30 | disposition home or self-care (01) ==
LOC: EC 13:16
DX: N39.0 Urinary tract infection, site not specified (principal); J44.9 Chronic obstructive pulmonary disease, unspecified; I11.9 Hypertensive heart disease without heart failure; I50.9 Heart failure, unspecified; E78.5 Hyperlipidemia, unspecified; M19.90 Unspecified osteoarthritis, unspecified site; E07.9 Disorder of thyroid, unspecified; Z79.890 Hormone replacement therapy; Z79.899 Other long term (current) drug therapy; Z79.51 Long term (current) use of inhaled steroids; Z86.711 Personal history of pulmonary embolism; Z91.09 Other allergy status, other than to drugs and biological substances; Z88.1 Allergy status to other antibiotic agents; Z88.0 Allergy status to penicillin; Z88.2 Allergy status to sulfonamides; Z87.891 Personal history of nicotine dependence; Z88.6 Allergy status to analgesic agent; Z88.7 Allergy status to serum and vaccine; Z88.8 Allergy status to other drugs, medicaments and biological substances
CPT/HCPCS: 81001; 87077; 87086; 87186; 99284

== ENCOUNTER 2021-07-27 11:01 | Emergency (ER) | payer MEDICARE ==
[2021-07-27 11:08] VITALS: TEMP 98.7
[2021-07-27] MEDS ORDERED: methylPREDNISolone SOD SUCCI 125 MG/2 ML VIAL IV STA (11:22)
[2021-07-27] MEDS ORDERED: ALBUTEROL HFA INHALER INHALATION STA (11:22)
--- NOTE | 2021-07-27 11:25 | ED ---
General Adult HPI - General Chief complaint: Shortness of Breath Stated complaint: SOB Time Seen by Provider: 07/27/21 11:09 Source: patient, RN notes reviewed Mode of arrival: EMS Limitations: no limitations - History of Present Illness Initial comments: Patient is a pleasant 81-year-old female presenting to the emergency department with difficulty breathing. Onset of symptoms was several days ago. Patient was started on Levaquin 2 or [address] Pearson. Patient was also started on Keflex for cellulitis of her legs. No fevers. Patient does have cough and dyspnea similar to previous COPD. Legs are little bit more swollen than normal. - Related Data Home Medications Medication Instructions Recorded Confirmed Levothyroxine Sodium [Synthroid] 125 mcg PO DAILY 10/18/20 07/27/21 amLODIPine [Norvasc] 10 mg PO DAILY 10/18/20 07/27/21 Albuterol Sulfate [Albuterol 2 puff INHALATION RT-Q6H PRN 06/03/21 07/27/21 Sulfate Hfa] Sertraline [Zoloft] 50 mg PO HS 06/03/21 07/27/21 cloNIDine HCL [Catapres] 0.3 mg PO BID 06/03/21 07/27/21 Docusate [Colace] 100 mg PO DAILY 06/29/21 07/27/21 Furosemide [Lasix] 40 mg PO BID 06/29/21 07/27/21 Mirtazapine [Remeron] 15 mg PO HS 06/29/21 07/27/21 Spironolactone 50 mg PO DAILY 06/29/21 07/27/21 carvediloL [Coreg*] 12.5 mg PO BID 06/29/21 07/27/21 Clotrimazole/Betamethasone Dip 1 applic TOPICAL BID 07/10/21 07/27/21 [Lotrisone Cream] Elderberry Fruit and Flower [Black 1,150 mg PO BID 07/10/21 07/27/21 Elderberry 575 mg Cap] Fluticasone/Salmeterol [Advair Hfa 2 puff INHALATION RT-BID 07/10/21 07/27/21 115-21 Mcg Inhaler] L.acidoph,Paracasei, B.lactis 1 cap PO DAILY 07/10/21 07/27/21 [Probiotic] Multivit-Min/Iron/Folic/Lutein 1 tab PO DAILY 07/10/21 07/27/21 [Centrum Silver Women Tablet] Simvastatin 40 mg PO HS 07/10/21 07/27/21 ALPRAZolam [Xanax] 0.5 mg PO DAILY PRN 07/27/21 07/27/21 Cephalexin [Keflex] 500 mg PO BID 07/27/21 07/27/21 Levofloxacin [Levaquin] 500 mg PO DAILY 07/27/21 07/27/21 SILVER sulfADIAZINE Cream 1 applic TOPICAL DIRECTED 07/27/21 07/27/21 [Silvadene 1% Cream] hydrALAZINE HCL [Apresoline] 25 mg PO DAILY 07/27/21 07/27/21 Allergies Allergy/AdvReac Type Severity Reaction Status Date / Time adhesive Allergy SKIN Verified 07/27/21 11:08 REDDENS & BLISTERS- PAPER TAPE OKAY azithromycin [From Zithromax] Allergy Nausea & Verified 07/27/21 11:08 Vomiting meperidine HCl [From Demerol] Allergy Nausea & Verified 07/27/21 11:08 Vomiting morphine Allergy Nausea & Verified 07/27/21 11:08 Vomiting Sulfa (Sulfonamide Allergy Nausea & Verified 07/27/21 11:08 Antibiotics) Vomiting tree and shrub pollen Allergy Cough Verified 07/27/21 11:08 aspirin AdvReac STOMACH Verified 07/27/21 11:08 HERRERA anesthesia Allergy facial/arms/hands Uncoded 07/27/21 11:08 swelling,skin"turns beet red", nausea DISSOLVING SUTURES Allergy INFECTION Uncoded 07/27/21 11:08 Review of Systems ROS Statement: Those systems with pertinent positive or pertinent negative responses have been documented in the HPI. ROS Other: All systems not noted in ROS Statement are negative. Constitutional: Denies: fever, chills Eyes: Denies: eye pain ENT: Denies: ear pain Respiratory: Reports: as per HPI, cough, dyspnea Cardiovascular: Denies: chest pain Endocrine: Denies: fatigue Gastrointestinal: Denies: abdominal pain Genitourinary: Denies: dysuria Musculoskeletal: Denies: back pain Skin: Reports: as per HPI, rash Neurological: Denies: weakness Past Medical History Past Medical History: Asthma, Cancer, Heart Failure, COPD, GERD/Reflux, Hyperlipidemia, Hypertension, Osteoarthritis (OA), Pneumonia, Pulmonary Embolus (PE), Rheumatoid Arthritis (RA), Sleep Apnea/CPAP/BIPAP, Thyroid Disorder Additional Past Medical History / Comment(s): COPD/asthma, chronic cough, hypothyroidism, history of basal cell carcinoma of the skin resected, history of melanoma of the skin involving the back, resected, history of diverticulosis/diverticulitis, history of fibrocystic disease, obstructive sleep apnea can sleep with the CPAP, varicose veins in lower extremities, hypothyroidism History of Any Multi-Drug Resistant Organisms: None Reported Past Surgical History: Bladder Surgery, Bowel Resection, Cholecystectomy, Heart Catheterization, Hernia Repair, Hysterectomy, Joint Replacement, Orthopedic Surgery Additional Past Surgical History / Comment(s): LEFT KNEE REPLACED, PARTIAL THYR OIDECTOMY,HIATAL HERNIA REPAIR 07/2013, ABDOMINAL HERNIA REPAIR,MULTIPLE SKIN LESIONS-PT STATED HAS HAS BASAL,SQUAMOUS AND MELANOMA SKIN CA ( NECK,RT UPPER & LOWER THIGH,LT ARM,RT ARM, face, back-melanoma)SKIN GRAFTS TO VINOD.LEGS-LT EAR-LT MIDDLE FINGER,ACHILLES TENDON surgery. RT OVARY 1 TUBE REMOVED, SIGMOID RESECTION D/T BOWEL OBSTRUCTION,RT LITLE FINGER AMP, Past Anesthesia/Blood Transfusion Reactions: Previous Problems w/ Anesthesia, Motion Sickness, Postoperative Nausea & Vomiting (PONV) Additional Past Anesthesia/Blood Transfusion Reaction / Comment(s): STATES "HAS HAD SWELLING TO FACE,HANDS,ARMS AND SKIN TURNS "BEET RED"WITH ANESTHESIA-with IV sedation. states no problems with last surgery at [facility] 01/2017-anesthesia records on chart Past Psychological History: Anxiety Smoking Status: Former smoker Past Alcohol Use History: None Reported Past Drug Use History: None Reported - Past Family History Mother Family Medical History: Diabetes Mellitus Additional Family Medical History / Comment(s): HEART PROBLEMS Sister(s) Family Medical History: Diabetes Mellitus, Myocardial Infarction ([place]) Additional Family Medical History / Comment(s): EMPHYSEMA Father Family Medical History: Cancer Additional Family Medical History / Comment(s): LUNG CA. General Exam Limitations: no limitations General appearance: alert, in no apparent distress Head exam: Present: normocephalic Eye exam: Present: normal appearance Neck exam: Present: normal inspection Respiratory exam: Present: wheezes, decreased breath sounds Cardiovascular Exam: Present: regular rate, normal rhythm GI/Abdominal exam: Present: soft. Absent: tenderness Extremities exam: Present: pedal edema. Absent: calf tenderness Neurological exam: Present: alert Psychiatric exam: Present: normal affect, normal mood Skin exam: Present: erythema (Bilateral lower leg erythema consistent with patient's recent diagnosis of cellulitis) Course Vital Signs 07/27/21 07/27/21 07/27/21 11:03 11:46 12:06 Temperature 98.7 F Pulse Rate 75 66 Respiratory 30 H 28 H 20 Rate Blood Pressure 139/69 143/57 O2 Sat by Pulse 98 97 Oximetry EKG Findings - EKG Comments: EKG Findings:: Normal sinus rhythm with a rate of 79. MI 154. QRS 100. QT 424. QTC 46. Left axis. LVH criteria. No acute ST change. Medical Decision Making - Medical Decision Making Patient feels much better following nebulizer and is requesting discharge home. Lungs are clear to auscultation. No tachypnea. - Lab Data Result diagrams: 07/27/21 11:27 07/27/21 11:27 Lab Results 07/27/21 07/27/21 07/27/21 Range/Units 11:27 11:27 11:27 WBC 7.2 (3.8-10.6) k/uL RBC 3.71 L (3.80-5.40) m/uL Hgb 11.3 L (11.4-16.0) gm/dL Hct 35.0 (34.0-46.0) % MCV 94.3 (80.0-100.0) fL MCH 30.5 (25.0-35.0) pg MCHC 32.3 (31.0-37.0) g/dL RDW 14.4 (11.5-15.5) % Plt Count 398 (150-450) k/uL MPV 7.7 Neutrophils % 71 % Lymphocytes % 20 % Monocytes % 5 % Eosinophils % 2 % Basophils % 1 % Neutrophils # 5.1 (1.3-7.7) k/uL Lymphocytes # 1.4 (1.0-4.8) k/uL Monocytes # 0.4 (0-1.0) k/uL Eosinophils # 0.2 (0-0.7) k/uL Basophils # 0.1 (0-0.2) k/uL PT 10.8 (9.0-12.0) sec INR 1.0 (<1.2) APTT 24.1 (22.0-30.0) sec Sodium 137 (137-145) mmol/L Potassium 3.8 (3.5-5.1) mmol/L Chloride 99 (98-107) mmol/L Carbon Dioxide 28 (22-30) mmol/L Anion Gap 10 mmol/L BUN 8 (7-17) mg/dL Creatinine 0.95 (0.52-1.04) mg/dL Est GFR (CKD-EPI)AfAm 65 (>60 ml/min/1.73 sqM) Est GFR (CKD-EPI)NonAf 56 (>60 ml/min/1.73 sqM) Glucose 152 H (74-99) mg/dL Plasma Lactic Acid Tyron (0.7-2.0) mmol/L Calcium 8.9 (8.4-10.2) mg/dL Total Bilirubin 0.4 (0.2-1.3) mg/dL AST 15 (14-36) U/L ALT 8 (4-34) U/L Alkaline Phosphatase 73 (38-126) U/L Troponin I (0.000-0.034) ng/mL NT-Pro-B Natriuret Pep pg/mL Total Protein 5.8 L (6.3-8.2) g/dL Albumin 3.4 L (3.5-5.0) g/dL Coronavirus (PCR) (Not Detectd) 07/27/21 07/27/21 07/27/21 Range/Units 11:27 11:27 11:27 WBC (3.8-10.6) k/uL RBC (3.80-5.40) m/uL Hgb (11.4-16.0) gm/dL Hct (34.0-46.0) % MCV (80.0-100.0) fL MCH (25.0-35.0) pg MCHC (31.0-37.0) g/dL RDW (11.5-15.5) % Plt Count (150-450) k/uL MPV Neutrophils % % Lymphocytes % % Monocytes % % Eosinophils % % Basophils % % Neutrophils # (1.3-7.7) k/uL Lymphocytes # (1.0-4.8) k/uL Monocytes # (0-1.0) k/uL Eosinophils # (0-0.7) k/uL Basophils # (0-0.2) k/uL PT (9.0-12.0) sec INR (<1.2) APTT (22.0-30.0) sec Sodium (137-145) mmol/L Potassium (3.5-5.1) mmol/L Chloride (98-107) mmol/L Carbon Dioxide (22-30) mmol/L Anion Gap mmol/L BUN (7-17) mg/dL Creatinine (0.52-1.04) mg/dL Est GFR (CKD-EPI)AfAm (>60 ml/min/1.73 sqM) Est GFR (CKD-EPI)NonAf (>60 ml/min/1.73 sqM) Glucose (74-99) mg/dL Plasma Lactic Acid Tyron 1.2 (0.7-2.0) mmol/L Calcium (8.4-10.2) mg/dL Total Bilirubin (0.2-1.3) mg/dL AST (14-36) U/L ALT (4-34) U/L Alkaline Phosphatase (38-126) U/L Troponin I <0.012 (0.000-0.034) ng/mL NT-Pro-B Natriuret Pep 873 pg/mL Total Protein (6.3-8.2) g/dL Albumin (3.5-5.0) g/dL Coronavirus (PCR) (Not Detectd) 07/27/21 Range/Units 11:27 WBC (3.8-10.6) k/uL RBC (3.80-5.40) m/uL Hgb (11.4-16.0) gm/dL Hct (34.0-46.0) % MCV (80.0-100.0) fL MCH (25.0-35.0) pg MCHC (31.0-37.0) g/dL RDW (11.5-15.5) % Plt Count (150-450) k/uL MPV Neutrophils % % Lymphocytes % % Monocytes % % Eosinophils % % Basophils % % Neutrophils # (1.3-7.7) k/uL Lymphocytes # (1.0-4.8) k/uL Monocytes # (0-1.0) k/uL Eosinophils # (0-0.7) k/uL Basophils # (0-0.2) k/uL PT (9.0-12.0) sec INR (<1.2) APTT (22.0-30.0) sec Sodium (137-145) mmol/L Potassium (3.5-5.1) mmol/L Chloride (98-107) mmol/L Carbon Dioxide (22-30) mmol/L Anion Gap mmol/L BUN (7-17) mg/dL Creatinine (0.52-1.04) mg/dL Est GFR (CKD-EPI)AfAm (>60 ml/min/1.73 sqM) Est GFR (CKD-EPI)NonAf (>60 ml/min/1.73 sqM) Glucose (74-99) mg/dL Plasma Lactic Acid Tyron (0.7-2.0) mmol/L Calcium (8.4-10.2) mg/dL Total Bilirubin (0.2-1.3) mg/dL AST (14-36) U/L ALT (4-34) U/L Alkaline Phosphatase (38-126) U/L Troponin I (0.000-0.034) ng/mL NT-Pro-B Natriuret Pep pg/mL Total Protein (6.3-8.2) g/dL Albumin (3.5-5.0) g/dL Coronavirus (PCR) Not Detected (Not Detectd) - Radiology Data Radiology results: image reviewed (Chest x-ray shows no acute process) Disposition Clinical Impression: Acute exacerbation of chronic obstructive pulmonary disease Disposition: HOME SELF-CARE Condition: Stable Instructions (If sedation given, give patient instructions): COPD (Chronic Obstructive Pulmonary Disease) (ED) Additional Instructions: Continue breathing treatments at home. Please do follow-up with her primary care physician and lung doctor in the next couple days for recheck. Return for difficulty breathing, fevers, worsening symptoms or other concerns. Is patient prescribed a controlled substance at d/c from ED?: No Referrals: Ying Pearson MD [Primary Care Provider] - 1-2 days Time of Disposition: 13:40
[2021-07-27 11:54] LABS: Basophils # (A) 0.1 k/uL (0-0.2); Basophils % (A) 1 %; Eosinophils # (A) 0.2 k/uL (0-0.7); Eosinophils % (A) 2 %; HGB 11.3 gm/dL (11.4-16.0); Lymphocytes # (A) 1.4 k/uL (1.0-4.8); Lymphocytes % (A) 20 %; MCH 30.5 pg (25.0-35.0); MCHC 32.3 g/dL (31.0-37.0); MCV 94.3 fL (80.0-100.0); Mean Platelet Volume 7.7; Monocytes # (A) 0.4 k/uL (0-1.0); Monocytes % (A) 5 %; Neutrophils # (A) 5.1 k/uL (1.3-7.7); Neutrophils % (A) 71 %; Platelet Count 398 k/uL (150-450); RBC 3.71 m/uL (3.80-5.40); RDW 14.4 % (11.5-15.5); WBC 7.2 k/uL (3.8-10.6)
[2021-07-27 12:05] LABS: Partial Thromboplastin Time 24.1 sec (22.0-30.0); Prothrombin Time 10.8 sec (9.0-12.0)
[2021-07-27 12:06] VITALS: BP 143/57
--- NOTE | 2021-07-27 12:09 | XR ---
EXAMINATION TYPE: XR chest 2V DATE OF EXAM: 07/27/2021 COMPARISON: 07/10/2021 HISTORY: Shortness of breath TECHNIQUE: Frontal and lateral views of the chest are obtained. FINDINGS: Scattered senescent parenchymal changes noted. Hyperinflation compatible with COPD. No evidence for infiltrate. No evidence for atelectasis. Heart size is stable. Mediastinal structures are stable and grossly unremarkable. No evidence for hilar prominence. Degenerative changes dorsal spine. IMPRESSION: 1. No evidence for acute pulmonary disease.
[2021-07-27 12:28] LABS: Albumin 3.4 g/dL (3.5-5.0); Calcium 8.9 mg/dL (8.4-10.2); Potassium 3.8 mmol/L (3.5-5.1); Total Bilirubin 0.4 mg/dL (0.2-1.3); Total Protein 5.8 g/dL (6.3-8.2)
[2021-07-27 13:59] VITALS: PULSE 77; RESP 22
== END 2021-07-27 13:59 | disposition home or self-care (01) ==
LOC: EC 11:01
DX: J44.1 Chronic obstructive pulmonary disease with (acute) exacerbation (principal); Z20.822 Contact with and (suspected) exposure to COVID-19; I11.0 Hypertensive heart disease with heart failure; I50.9 Heart failure, unspecified; K21.9 Gastro-esophageal reflux disease without esophagitis; E78.5 Hyperlipidemia, unspecified; M06.9 Rheumatoid arthritis, unspecified; E03.9 Hypothyroidism, unspecified; F41.9 Anxiety disorder, unspecified; Z87.891 Personal history of nicotine dependence; Z79.890 Hormone replacement therapy; Z79.51 Long term (current) use of inhaled steroids; Z79.899 Other long term (current) drug therapy; Z88.2 Allergy status to sulfonamides; Z88.6 Allergy status to analgesic agent; Z88.8 Allergy status to other drugs, medicaments and biological substances; Z88.1 Allergy status to other antibiotic agents
CPT/HCPCS: 36415; 94640; 93005; 83880; 80053; 83605; 84484; 85025; 85610; 85730; 87635; 71046; 99285; 96374; J2930

== ENCOUNTER 2021-09-25 12:26 | Inpatient (IN) | payer MEDICARE ==
[2021-09-25] MEDS ORDERED: IPRATROPIUM-ALBUTEROL 3 ML NEB INHALATION STA (12:47)
[2021-09-25] MEDS ORDERED: ALBUTEROL NEBULIZED 2.5 MG/3 ML INHALATION STA (12:47)
--- NOTE | 2021-09-25 12:55 | ED ---
General Adult HPI - General Chief complaint: Shortness of Breath Stated complaint: MIRTHA Time Seen by Provider: 09/25/21 12:31 Source: patient, EMS, RN notes reviewed, old records reviewed Mode of arrival: EMS Limitations: no limitations - History of Present Illness Initial comments: 81-year-old female history of oxygen dependent COPD presents for evaluation of increased cough and dyspnea. Patient recently had coronavirus approximately 3 weeks ago. She denies fever. She's had some central chest pain which is worse with cough. Minimal lower extremity edema. She is currently wearing 5 L of nasal cannula supplemental oxygen. - Related Data Home Medications Medication Instructions Recorded Confirmed Levothyroxine Sodium [Synthroid] 125 mcg PO DAILY@0700 10/18/20 09/25/21 amLODIPine [Norvasc] 10 mg PO DAILY@0700 10/18/20 09/25/21 Sertraline [Zoloft] 50 mg PO HS@1900 06/03/21 09/25/21 cloNIDine HCL [Catapres] 0.3 mg PO BID@0700,1900 06/03/21 09/25/21 Docusate [Colace] 400 mg PO HS@1900 06/29/21 09/25/21 Furosemide [Lasix] 40 mg PO BID@0700,1900 06/29/21 09/25/21 Mirtazapine [Remeron] 15 mg PO HS@1900 06/29/21 09/25/21 Multivit-Min/Iron/Folic/Lutein 1 tab PO DAILY@0700 07/10/21 09/25/21 [Centrum Silver Women Tablet] Simvastatin 40 mg PO HS@1900 07/10/21 09/25/21 SILVER sulfADIAZINE Cream 1 applic TOPICAL BID@0700,1900 07/27/21 09/25/21 [Silvadene 1% Cream] hydrALAZINE HCL [Apresoline] 25 mg PO BID@0700,1900 07/27/21 09/25/21 Acetaminophen [Tylenol] 500 - 1,000 mg PO Q6H PRN 08/26/21 09/25/21 Black Elderberry 2000mg Capsule 4,000 mg PO BID@0700,1900 08/26/21 09/25/21 Calcium Carbonate [Tums] 1,000 - 2,000 mg PO DAILY PRN 08/26/21 09/25/21 Carvedilol [Coreg] 25 mg PO BID@0700,1900 08/26/21 09/25/21 Guaifenesin/Dextromethorphan 20 ml PO DIRECTED PRN 08/26/21 09/25/21 [Robitussin Cough-Chest Dm Liq] HYDROcodone/APAP 7.5-325MG [[place] 1 tab PO TID PRN 08/26/21 09/25/21 7.5-325] Lansoprazole [Prevacid] 30 mg PO DAILY@69908/26/21 09/25/21 Menthol [[place]] 7.5 mg MM DIRECTED PRN 08/26/21 09/25/21 Spironolactone 25 mg PO DAILY@69908/26/21 09/25/21 Zolpidem Tartrate [Ambien] 5 mg PO HS PRN 08/26/21 09/25/21 Allergy Relief 50 mg PO BID@0700,1900 09/25/21 09/25/21 Ascorbic Acid [Vitamin C] 500 mg PO DAILY@69909/25/21 09/25/21 Benzonatate [Benzonatate Perle] 200 mg PO TID@0700,1400,1900 09/25/21 09/25/21 Cholecalciferol [Vitamin D3 (25 25 mcg PO DAILY@69909/25/21 09/25/21 Mcg = 1000 Iu)] Colon Health Probiotic 1 cap PO DAILY@0700 09/25/21 09/25/21 Ipratropium-Albuterol Nebulize 3 ml INHALATION RT-QID 09/25/21 09/25/21 [Duoneb 0.5 mg-3 mg/3 ml Soln] Levofloxacin [Levaquin] 500 mg PO BID@0700,1900 09/25/21 09/25/21 Quercetin Bromelain Caps 2 cap PO DAILY@69909/25/21 09/25/21 Zinc 50 mg PO DAILY@69909/25/21 09/25/21 guaiFENesin [Mucinex] 1,200 mg PO Q12H PRN 09/25/21 09/25/21 Allergies Allergy/AdvReac Type Severity Reaction Status Date / Time adhesive Allergy SKIN Verified 09/25/21 13:35 REDDENS & BLISTERS- PAPER TAPE OKAY azithromycin [From Zithromax] Allergy Nausea & Verified 09/25/21 13:35 Vomiting meperidine HCl [From Demerol] Allergy Nausea & Verified 09/25/21 13:35 Vomiting morphine Allergy Nausea & Verified 09/25/21 13:35 Vomiting onion Allergy Unknown Verified 09/25/21 13:35 Sulfa (Sulfonamide Allergy Nausea & Verified 09/25/21 13:35 Antibiotics) Vomiting tree and shrub pollen Allergy Cough Verified 09/25/21 13:35 aspirin AdvReac STOMACH Verified 09/25/21 13:35 HERRERA milk AdvReac Nausea & Verified 09/25/21 13:35 Vomiting anesthesia Allergy facial/arms/hands Uncoded 09/25/21 12:36 swelling,skin"turns beet red", nausea DISSOLVING SUTURES Allergy INFECTION Uncoded 09/25/21 12:36 Review of Systems ROS Statement: Those systems with pertinent positive or pertinent negative responses have been documented in the HPI. ROS Other: All systems not noted in ROS Statement are negative. Past Medical History Past Medical History: Asthma, Cancer, Heart Failure, COPD, GERD/Reflux, Hyperlipidemia, Hypertension, Osteoarthritis (OA), Pneumonia, Pulmonary Embolus (PE), Rheumatoid Arthritis (RA), Sleep Apnea/CPAP/BIPAP, Thyroid Disorder Additional Past Medical History / Comment(s): COPD/asthma, chronic cough, hypothyroidism, history of basal cell carcinoma of the skin resected, history of melanoma of the skin involving the back, resected, history of diverticulosis/diverticulitis, history of fibrocystic disease, obstructive sleep apnea can sleep with the CPAP, varicose veins in lower extremities, hypothyroidism History of Any Multi-Drug Resistant Organisms: None Reported Past Surgical History: Bladder Surgery, Bowel Resection, Cholecystectomy, Heart Catheterization, Hernia Repair, Hysterectomy, Joint Replacement, Orthopedic Surgery Additional Past Surgical History / Comment(s): LEFT KNEE REPLACED, PARTIAL THYROIDECTOMY,HIATAL HERNIA REPAIR 07/2013, ABDOMINAL HERNIA REPAIR,MULTIPLE SKIN LESIONS-PT STATED HAS HAS BASAL,SQUAMOUS AND MELANOMA SKIN CA ( NECK,RT UPPER & LOWER THIGH,LT ARM,RT ARM, face, back-melanoma)SKIN GRAFTS TO VINOD.LEGS- LT EAR-LT MIDDLE FINGER,ACHILLES TENDON surgery. RT OVARY 1 TUBE REMOVED, SIGMOID RESECTION D/T BOWEL OBSTRUCTION,RT LITLE FINGER AMP, Past Anesthesia/Blood Transfusion Reactions: Previous Problems w/ Anesthesia, Motion Sickness, Postoperative Nausea & Vomiting (PONV) Additional Past Anesthesia/Blood Transfusion Reaction / Comment(s): STATES "HAS HAD SWELLING TO FACE,HANDS,ARMS AND SKIN TURNS "BEET RED"WITH ANESTHESIA-with IV sedation. states no problems with last surgery at [facility] 01/2017-anesthesia records on chart Past Psychological History: Anxiety Smoking Status: Former smoker Past Alcohol Use History: None Reported Past Drug Use History: None Reported - Past Family History Mother Family Medical History: Diabetes Mellitus Additional Family Medical History / Comment(s): HEART PROBLEMS Sister(s) Family Medical History: Diabetes Mellitus, Myocardial Infarction ([place]) Additional Family Medical History / Comment(s): EMPHYSEMA Father Family Medical History: Cancer Additional Family Medical History / Comment(s): LUNG CA. General Exam Limitations: no limitations General appearance: alert, in no apparent distress Head exam: Present: atraumatic, normocephalic Eye exam: Present: normal appearance, PERRL ENT exam: Present: normal exam Neck exam: Present: normal inspection. Absent: tenderness, meningismus Respiratory exam: Present: wheezes, decreased breath sounds. Absent: respiratory distress Cardiovascular Exam: Present: regular rate, normal rhythm GI/Abdominal exam: Present: soft. Absent: distended, tenderness, guarding Extremities exam: Present: normal capillary refill, pedal edema Neurological exam: Present: alert, oriented X3, CN II-XII intact. Absent: motor sensory deficit Course Vital Signs 09/25/21 12:29 Temperature 98.5 F Pulse Rate 62 Respiratory 18 Rate Blood Pressure 184/79 O2 Sat by Pulse 96 Oximetry - Reevaluation(s) Reevaluation #1: 09/25/21 14:14 CT angiography has been ordered, results pending. Rule out pulmonary embolism. EKG Findings - EKG Comments: EKG Findings:: Sinus rhythm, rate of 63, ME interval 177, QRS duration 90, QTC 424, no ST segment elevation. Medical Decision Making - Medical Decision Making 81 yo female presenting with increased cough and dyspnea history of COPD. Patient denies fever. She does report some central chest pain which is worse with cough. Chest x-ray showing stable chronic findings, no acute findings. Patient had been sent in by the home care nurse to receive CT angiography of the chest to rule out pulmonary embolus. These results are pending. Patient has a mild leukocytosis. She is currently on oral steroids. Normal CMP negative troponin, negative BNP. Case discussed with Dr. Arias who will admit. He will follow-up with CT angiography. - Lab Data Result diagrams: 09/25/21 13:12 09/25/21 13:12 Lab Results 09/25/21 09/25/21 09/25/21 Range/Units 13:12 13:12 13:12 WBC 10.8 H (3.8-10.6) k/uL RBC 4.32 (3.80-5.40) m/uL Hgb 12.6 (11.4-16.0) gm/dL Hct 40.1 (34.0-46.0) % MCV 92.8 (80.0-100.0) fL MCH 29.2 (25.0-35.0) pg MCHC 31.4 (31.0-37.0) g/dL RDW 15.3 (11.5-15.5) % Plt Count 270 (150-450) k/uL MPV 7.2 Neutrophils % 74 % Lymphocytes % 17 % Monocytes % 5 % Eosinophils % 2 % Basophils % 0 % Neutrophils # 7.9 H (1.3-7.7) k/uL Lymphocytes # 1.8 (1.0-4.8) k/uL Monocytes # 0.5 (0-1.0) k/uL Eosinophils # 0.2 (0-0.7) k/uL Basophils # 0.0 (0-0.2) k/uL PT 10.5 (9.0-12.0) sec INR 1.0 (<1.2) APTT 23.2 (22.0-30.0) sec Sodium 135 L (137-145) mmol/L Potassium 3.8 (3.5-5.1) mmol/L Chloride 99 (98-107) mmol/L Carbon Dioxide 31 H (22-30) mmol/L Anion Gap 5 mmol/L BUN 17 (7-17) mg/dL Creatinine 1.08 H (0.52-1.04) mg/dL Est GFR (CKD-EPI)AfAm 55 (>60 ml/min/1.73 sqM) Est GFR (CKD-EPI)NonAf 48 (>60 ml/min/1.73 sqM) Glucose 167 H (74-99) mg/dL Plasma Lactic Acid Tyron (0.7-2.0) mmol/L Calcium 9.2 (8.4-10.2) mg/dL Magnesium 2.1 (1.6-2.3) mg/dL Total Bilirubin 0.5 (0.2-1.3) mg/dL AST 18 (14-36) U/L ALT 15 (4-34) U/L Alkaline Phosphatase 71 (38-126) U/L Troponin I (0.000-0.034) ng/mL NT-Pro-B Natriuret Pep pg/mL Total Protein 6.4 (6.3-8.2) g/dL Albumin 3.7 (3.5-5.0) g/dL 09/25/21 09/25/21 09/25/21 Range/Units 13:12 13:12 13:12 WBC (3.8-10.6) k/uL RBC (3.80-5.40) m/uL Hgb (11.4-16.0) gm/dL Hct (34.0-46.0) % MCV (80.0-100.0) fL MCH (25.0-35.0) pg MCHC (31.0-37.0) g/dL RDW (11.5-15.5) % Plt Count (150-450) k/uL MPV Neutrophils % % Lymphocytes % % Monocytes % % Eosinophils % % Basophils % % Neutrophils # (1.3-7.7) k/uL Lymphocytes # (1.0-4.8) k/uL Monocytes # (0-1.0) k/uL Eosinophils # (0-0.7) k/uL Basophils # (0-0.2) k/uL PT (9.0-12.0) sec INR (<1.2) APTT (22.0-30.0) sec Sodium (137-145) mmol/L Potassium (3.5-5.1) mmol/L Chloride (98-107) mmol/L Carbon Dioxide (22-30) mmol/L Anion Gap mmol/L BUN (7-17) mg/dL Creatinine (0.52-1.04) mg/dL Est GFR (CKD-EPI)AfAm (>60 ml/min/1.73 sqM) Est GFR (CKD-EPI)NonAf (>60 ml/min/1.73 sqM) Glucose (74-99) mg/dL Plasma Lactic Acid Tyron 1.2 (0.7-2.0) mmol/L Calcium (8.4-10.2) mg/dL Magnesium (1.6-2.3) mg/dL Total Bilirubin (0.2-1.3) mg/dL AST (14-36) U/L ALT (4-34) U/L Alkaline Phosphatase (38-126) U/L Troponin I <0.012 (0.000-0.034) ng/mL NT-Pro-B Natriuret Pep 262 pg/mL Total Protein (6.3-8.2) g/dL Albumin (3.5-5.0) g/dL Disposition Clinical Impression: Acute exacerbation of chronic obstructive pulmonary disease Disposition: ADMITTED IP TO THIS HOSP Condition: Stable Is patient prescribed a controlled substance at d/c from ED?: No Referrals: Ying Pearson MD [Primary Care Provider] - 1-2 days Time of Disposition: 14:17
[2021-09-25 13:23] LABS: Basophils % (A) 0 %; Eosinophils # (A) 0.2 k/uL (0-0.7); Eosinophils % (A) 2 %; HCT 40.1 % (34.0-46.0); HGB 12.6 gm/dL (11.4-16.0); Lymphocytes # (A) 1.8 k/uL (1.0-4.8); Lymphocytes % (A) 17 %; MCH 29.2 pg (25.0-35.0); MCHC 31.4 g/dL (31.0-37.0); MCV 92.8 fL (80.0-100.0); Mean Platelet Volume 7.2; Monocytes # (A) 0.5 k/uL (0-1.0); Monocytes % (A) 5 %; Neutrophils # (A) 7.9 k/uL (1.3-7.7); Neutrophils % (A) 74 %; Platelet Count 270 k/uL (150-450); RBC 4.32 m/uL (3.80-5.40); RDW 15.3 % (11.5-15.5); WBC 10.8 k/uL (3.8-10.6)
[2021-09-25 13:34] LABS: Partial Thromboplastin Time 23.2 sec (22.0-30.0); Prothrombin Time 10.5 sec (9.0-12.0)
[2021-09-25 13:40] LABS: Albumin 3.7 g/dL (3.5-5.0); Calcium 9.2 mg/dL (8.4-10.2); Magnesium 2.1 mg/dL (1.6-2.3); Potassium 3.8 mmol/L (3.5-5.1); Total Bilirubin 0.5 mg/dL (0.2-1.3); Total Protein 6.4 g/dL (6.3-8.2)
--- NOTE | 2021-09-25 13:43 | XR ---
EXAMINATION TYPE: XR chest 2V DATE OF EXAM: 09/25/2021 COMPARISON: Chest x-ray August 26, 2021 HISTORY: History of asthma and COPD with shortness of breath. TECHNIQUE: Frontal and lateral views of the chest are obtained. FINDINGS: There is 20.1 change bilaterally without suspicious new focal air space opacity, pleural e ffusion, or pneumothorax seen. Cardiomegaly with atherosclerotic thoracic aorta is redemonstrated. The osseous structures are demineralized. Cholecystectomy clips are noted. IMPRESSION: Chronic emphysematous change and cardiomegaly without acute pulmonary process. No signif icant change from prior.
[2021-09-25] MEDS ORDERED: IPRATROPIUM-ALBUTEROL 3 ML NEB INHALATION PRN (14:13)
[2021-09-25] MEDS ORDERED: SODIUM CHLORIDE 0.9% 500 ML 500 ML IV ONE (14:14)
[2021-09-25] MEDS ORDERED: ACETAMINOPHEN TAB 325 MG TAB PO PRN (14:47)
[2021-09-25] MEDS ORDERED: HYDROcodone/APAP 7.5-325MG 1 EACH TAB PO PRN (15:53)
[2021-09-25] MEDS ORDERED: ZOLPIDEM 5 MG TAB PO PRN (15:53)
[2021-09-25] MEDS ORDERED: ALBUTEROL NEBULIZED 2.5 MG/3 ML INHALATION SCH (16:00)
--- NOTE | 2021-09-25 16:04 | CT ---
EXAMINATION TYPE: CT angio chest DATE OF EXAM: 09/25/2021 COMPARISON: CTA chest March 19, 2018 and older studies HISTORY: Difficulty breathing. CT DLP: 561.3 mGycm. Automated Exposure Control for Dose Reduction was Utilized. CONTRAST: CTA scan of the thorax is performed with IV Contrast, patient injected with 80 mL of Isovue 370, pulm onary embolism protocol. MIP Images are created on CT scanner and reviewed. FINDINGS: LUNGS: Exam is suboptimal due to body habitus and patient's inability to hold breath. Low lung volume s with basilar compressive atelectasis is present. No pleural effusion or pneumothorax seen bilateral ly. MEDIASTINUM: There is partial occlusive low dense emboli and lingular branches centrally axial image 52 and 54 for reference. No significant lower lobe emboli. Stable enlarged right and left pulmonary arteries consistent with underlying pulmonary artery hypertension. Cardiomegaly redemonstrated. Coron óscar artery calcification again seen. Small pericardial effusion posteriorly redemonstrated. No new ri ght ventricular dilatation. Moderate mixed plaque in the aorta redemonstrated. Satisfactory enhanceme nt of the aorta without aneurysm or dissection. OTHER: Multilevel spurring in the spine. Osseous structures are demineralized.. IMPRESSION: Suboptimal study, small partially occlusive emboli in the lingula branches are now presen t. Case discussed with emergency room via telephone at time of dictation.
--- NOTE | 2021-09-25 16:32 | P.HPIM ---
History of Present Illness Patient is a pleasant 81-year-old female still complains of shortness of breath, cough with greenish sputum production believe patient may have pneumonia. Patient doesn't have any fever the 7 leukocytosis COVID-19 is negative. Patient does have chronic hypercapnic respiratory failure uses around 4 L of oxygen appears to have advanced COPD although patient didn't smoke for 50 years. Patient does have chronic venous is of bilateral lower extremities because of which patient uses Lasix and is also on Aldactone. Patient was told she has heart failure although I reviewed her echocardiogram which did not show any decreased ejection fraction, patient was never admitted for pulmonary edema in the past. Patient does have history of rheumatoid arthritis. Patient will also company of greenish sputum production chest x-ray and CT angios the chest did not show any pneumonia. Patient had greenish sputum production about 2 days ago note on to yellowish in color. Patient is also receiving Levoxine at home. Patient's baseline creatinine is around 0.8 present creatinine is 1.08. REVIEW OF SYSTEMS: CONSTITUTIONAL: No fever, no malaise, no fatigue. HEENT: No recent visual problems or hearing problems. Denied any sore throat. CARDIOVASCULAR: No chest pain, orthopnea, PND, no palpitations, no syncope. PULMONARY: no hemoptysis. GASTROINTESTINAL: No diarrhea, no nausea, no vomiting, no abdominal pain. NEUROLOGICAL: No headaches, no weakness, no numbness. HEMATOLOGICAL: Denies any bleeding or petechiae. GENITOURINARY: Denies any burning micturition, frequency, or urgency. MUSCULOSKELETAL/RHEUMATOLOGICAL: Denies any joint pain, swelling, or any muscle pain. ENDOCRINE: Denies any polyuria or polydipsia. The rest of the 14-point review of systems is negative. PHYSICAL EXAMINATION: GENERAL: The patient is alert and oriented x3, not in any acute distress. Well developed, well nourished. HEENT: Pupils are round and equally reacting to light. EOMI. No scleral icterus. No conjunctival pallor. Normocephalic, atraumatic. No pharyngeal erythema. No thyromegaly. CARDIOVASCULAR: S1 and S2 present. No murmurs, rubs, or gallops. PULMONARY: She has significant wheezing on exam no crackles were appreciated ABDOMEN: Soft, nontender, nondistended, normoactive bowel sounds. No palpable organomegaly. MUSCULOSKELETAL: No joint swelling or deformity. EXTREMITIES: No cyanosis, clubbing, mild pedal edema. NEUROLOGICAL: Gross neurological examination did not reveal any focal deficits. SKIN: Chronic lower extremity redness no significant edema Assessment and plan -Acute on chronic hypoxic and hypercapnic respiratory failure is admitted for COPD exacerbation, patient will continue on systemic steroids inhalational treatments. CT angios did not show any PE and chest x-ray is consistent with emphysema. Pulmonology was consulted. -Bilateral lower extremity chronic venous stasis presently only mild edema patient will be resumed on home dose of Lasix and Aldactone my suspicion is low that patient has heart failure. -Hypertension -Depression -hypothyroidism -Hyperlipidemia -Tracheobronchitis for which patient on levofloxacin which will be continued -History of sleep apnea patient uses BiPAP which will be continued -History of PE in the past presently not on any anticoagulation -related arthritis DVT prophylaxis: Lovenox Past Medical History Past Medical History: Asthma, Cancer, Heart Failure, COPD, GERD/Reflux, Hyperlipidemia, Hypertension, Osteoarthritis (OA), Pneumonia, Pulmonary Embolus (PE), Rheumatoid Arthritis (RA), Sleep Apnea/CPAP/BIPAP, Thyroid Disorder Additional Past Medical History / Comment(s): COPD/asthma, chronic cough, hypothyroidism, history of basal cell carcinoma of the skin resected, history of melanoma of the skin involving the back, resected, history of diverticulosis/diverticulitis, history of fibrocystic disease, obstructive sleep apnea can sleep with the CPAP, varicose veins in lower extremities, hypothyroidism History of Any Multi-Drug Resistant Organisms: None Reported Past Surgical History: Bladder Surgery, Bowel Resection, Cholecystectomy, Heart Catheterization, Hernia Repair, Hysterectomy, Joint Replacement, Orthopedic Surgery Additional Past Surgical History / Comment(s): LEFT KNEE REPLACED, PARTIAL THYROIDECTOMY,HIATAL HERNIA REPAIR 07/2013, ABDOMINAL HERNIA REPAIR,MULTIPLE SKIN LESIONS-PT STATED HAS HAS BASAL,SQUAMOUS AND MELANOMA SKIN CA ( NECK,RT UPPER & LOWER THIGH,LT ARM,RT ARM, face, back-melanoma)SKIN GRAFTS TO VINOD.LEGS- LT EAR-LT MIDDLE FINGER,ACHILLES TENDON surgery. RT OVARY 1 TUBE REMOVED, SIGMOID RESECTION D/T BOWEL OBSTRUCTION,RT LITLE FINGER AMP, Past Anesthesia/Blood Transfusion Reactions: Previous Problems w/ Anesthesia, Motion Sickness, Postoperative Nausea & Vomiting (PONV) Additional Past Anesthesia/Blood Transfusion Reaction / Comment(s): STATES "HAS HAD SWELLING TO FACE,HANDS,ARMS AND SKIN TURNS "BEET RED"WITH ANESTHESIA-with IV sedation. states no problems with last surgery at [facility] 01/2017-anesthesia records on chart Past Psychological History: Anxiety Smoking Status: Former smoker Past Alcohol Use History: None Reported Past Drug Use History: None Reported - Past Family History Mother Family Medical History: Diabetes Mellitus Additional Family Medical History / Comment(s): HEART PROBLEMS Sister(s) Family Medical History: Diabetes Mellitus, Myocardial Infarction ([place]) Additional Family Medical History / Comment(s): EMPHYSEMA Father Family Medical History: Cancer Additional Family Medical History / Comment(s): LUNG CA. Medications and Allergies Home Medications Medication Instructions Recorded Confirmed Type Levothyroxine Sodium [Synthroid] 125 mcg PO DAILY@69910/18/20 09/25/21 History amLODIPine [Norvasc] 10 mg PO DAILY@0700 10/18/20 09/25/21 History Sertraline [Zoloft] 50 mg PO HS@189906/03/21 09/25/21 History cloNIDine HCL [Catapres] 0.3 mg PO BID@07,189906/03/21 09/25/21 History Docusate [Colace] 400 mg PO HS@19006/29/21 09/25/21 History Furosemide [Lasix] 40 mg PO BID@07,189906/29/21 09/25/21 History Mirtazapine [Remeron] 15 mg PO HS@1900 06/29/21 09/25/21 History Multivit-Min/Iron/Folic/Lutein 1 tab PO DAILY@0707/10/21 09/25/21 History [Centrum Silver Women Tablet] Simvastatin 40 mg PO HS@1900 07/10/21 09/25/21 History SILVER sulfADIAZINE Cream 1 applic TOPICAL BID@0700,189907/27/21 09/25/21 History [Silvadene 1% Cream] hydrALAZINE HCL [Apresoline] 25 mg PO BID@0700,19007/27/21 09/25/21 History Acetaminophen [Tylenol] 500 - 1,000 mg PO Q6H PRN 08/26/21 09/25/21 History Black Elderberry 2000mg Capsule 4,000 mg PO BID@0700,19008/26/21 09/25/21 History Calcium Carbonate [Tums] 1,000 - 2,000 mg PO DAILY PRN 08/26/21 09/25/21 History Carvedilol [Coreg] 25 mg PO BID@0700,1900 08/26/21 09/25/21 History Guaifenesin/Dextromethorphan 20 ml PO DIRECTED PRN 08/26/21 09/25/21 History [Robitussin Cough-Chest Dm Liq] HYDROcodone/APAP 7.5-325MG [[place] 1 tab PO TID PRN 08/26/21 09/25/21 History 7.5-325] Lansoprazole [Prevacid] 30 mg PO DAILY@00 08/26/21 09/25/21 History Menthol [[place]] 7.5 mg MM DIRECTED PRN 08/26/21 09/25/21 History Spironolactone 25 mg PO DAILY@0700 08/26/21 09/25/21 History Zolpidem Tartrate [Ambien] 5 mg PO HS PRN 08/26/21 09/25/21 History Allergy Relief 50 mg PO BID@0700,1900 09/25/21 09/25/21 History Ascorbic Acid [Vitamin C] 500 mg PO DAILY@69909/25/21 09/25/21 History Benzonatate [Benzonatate Perle] 200 mg PO TID@0700,1400,1900 09/25/21 09/25/21 History Cholecalciferol [Vitamin D3 (25 25 mcg PO DAILY@69909/25/21 09/25/21 History Mcg = 1000 Iu)] Colon Health Probiotic 1 cap PO DAILY@0700 09/25/21 09/25/21 History Ipratropium-Albuterol Nebulize 3 ml INHALATION RT-QID 09/25/21 09/25/21 History [Duoneb 0.5 mg-3 mg/3 ml Soln] Levofloxacin [Levaquin] 500 mg PO BID@0700,1900 09/25/21 09/25/21 History Quercetin Bromelain Caps 2 cap PO DAILY@0700 09/25/21 09/25/21 History Zinc 50 mg PO DAILY@0700 09/25/21 09/25/21 History guaiFENesin [Mucinex] 1,200 mg PO Q12H PRN 09/25/21 09/25/21 History Allergies Allergy/AdvReac Type Severity Reaction Status Date / Time adhesive Allergy SKIN Verified 09/25/21 13:35 REDDENS & BLISTERS- PAPER TAPE OKAY azithromycin [From Zithromax] Allergy Nausea & Verified 09/25/21 13:35 Vomiting meperidine HCl [From Demerol] Allergy Nausea & Verified 09/25/21 13:35 Vomiting morphine Allergy Nausea & Verified 09/25/21 13:35 Vomiting onion Allergy Unknown Verified 09/25/21 13:35 Sulfa (Sulfonamide Allergy Nausea & Verified 09/25/21 13:35 Antibiotics) Vomiting tree and shrub pollen Allergy Cough Verified 09/25/21 13:35 aspirin AdvReac STOMACH Verified 09/25/21 13:35 HERRERA milk AdvReac Nausea & Verified 09/25/21 13:35 Vomiting anesthesia Allergy facial/arms/hands Uncoded 09/25/21 12:36 swelling,skin"turns beet red", nausea DISSOLVING SUTURES Allergy INFECTION Uncoded 09/25/21 12:36 Physical Exam Vitals: Vital Signs Temp Pulse Resp BP Pulse Ox 09/25/21 12:29 98.5 F 62 18 184/79 96 Intake and Output 09/25/21 09/25/21 09/25/21 06:59 14:59 22:59 Other: Weight 99.79 kg Results CBC & Chem 7: 09/25/21 13:12 09/25/21 13:12 Labs: Abnormal Lab Results - Last 24 Hours (Table) 09/25/21 09/25/21 Range/Units 13:12 13:12 WBC 10.8 H (3.8-10.6) k/uL Neutrophils # 7.9 H (1.3-7.7) k/uL Sodium 135 L (137-145) mmol/L Carbon Dioxide 31 H (22-30) mmol/L Creatinine 1.08 H (0.52-1.04) mg/dL Glucose 167 H (74-99) mg/dL
[2021-09-25] MEDS: ALBUTEROL NEB (CONC) 2.5 MG/0.5 ML INHALATION SCH (16:44)
[2021-09-25] MEDS: IPRATROPIUM-ALBUTEROL 3 ML NEB INHALATION SCH ×2 (16:44→19:51)
[2021-09-25] MEDS ORDERED: LEVOFLOXACIN 500 MG TAB PO SCH (17:00)
[2021-09-25] MEDS: methylPREDNISolone SOD SUCCI 125 MG/2 ML VIAL IV SCH (17:37)
[2021-09-25] MEDS ORDERED: HEPARIN SODIUM 1,000 UN/ML (10ML VL) IV ONE (18:14)
[2021-09-25] MEDS ORDERED: HEPARIN SODIUM 1,000 UN/ML (10ML VL) IV PRN (18:14)
[2021-09-25] MEDS: FUROSEMIDE 40 MG TAB PO SCH (19:42)
[2021-09-25] MEDS: DOCUSATE 100 MG CAP PO SCH (19:42)
[2021-09-25] MEDS: MIRTAZAPINE 15 MG TAB PO SCH (19:42)
[2021-09-25] MEDS: SERTRALINE 50 MG TAB PO SCH (19:43)
[2021-09-25] MEDS: BENZONATATE 100 MG CAP PO SCH (19:43)
[2021-09-25] MEDS: ATORVASTATIN 20 MG TAB PO SCH (19:43)
[2021-09-25] MEDS: carvediloL 12.5 MG TAB PO SCH (19:43)
[2021-09-25] MEDS: cloNIDine HCL 0.1 MG TAB PO SCH (19:43)
[2021-09-25] MEDS: HEPARIN SOD,PORK IN 0.45% NACL 25,000 UNIT in 0.45% NACL 1 250ML.BAG IV SCH (19:53)
[2021-09-25] MEDS: guaiFENesin-DM 100-10MG/5ML 10 ML CUP PO PRN (21:14)
[2021-09-25] MEDS: BENZOCAINE/MENTHOL LOZENG 1 EACH LOZENGE MUCOUS MEM PRN (21:46)
[2021-09-26] MEDS: methylPREDNISolone SOD SUCCI 125 MG/2 ML VIAL IV SCH ×4 (00:15→18:21)
[2021-09-26 02:43] LABS: HCT 41.4 % (34.0-46.0); HGB 12.9 gm/dL (11.4-16.0); Hypochromasia Slight; MCH 29.8 pg (25.0-35.0); MCHC 31.1 g/dL (31.0-37.0); Mean Platelet Volume 7.2; Platelet Count 294 k/uL (150-450); RBC 4.31 m/uL (3.80-5.40); RDW 15.1 % (11.5-15.5); WBC 11.7 k/uL (3.8-10.6)
[2021-09-26 03:22] LABS: African American GFR (CKD) 42 (>60 ml/min/1.73 sqM); Anion Gap 16 mmol/L; Blood Urea Nitrogen 21 mg/dL (7-17); Calcium 9.3 mg/dL (8.4-10.2); Carbon Dioxide 24 mmol/L (22-30); Chloride 94 mmol/L (98-107); Glucose 389 mg/dL (74-99); Magnesium 2.2 mg/dL (1.6-2.3); Non-African American GFR(CKD) 37 (>60 ml/min/1.73 sqM); Potassium 4.4 mmol/L (3.5-5.1); Sodium 134 mmol/L (137-145)
[2021-09-26] MEDS ORDERED: SPIRONOLACTONE 25 MG TAB PO SCH (07:00)
[2021-09-26] MEDS: IPRATROPIUM-ALBUTEROL 3 ML NEB INHALATION SCH ×4 (07:52→19:55)
[2021-09-26] MEDS: SYMBICORT 160-4.5 MCG INHALER INHALATION SCH ×2 (08:23→19:56)
[2021-09-26] MEDS: CHOLECALCIFEROL 25 MCG (1000 IU) TABLET PO SCH (08:53)
[2021-09-26] MEDS: PANTOPRAZOLE 40 MG TABLET PO SCH (08:53)
[2021-09-26] MEDS: amLODIPine 10 MG TAB PO SCH (08:53)
[2021-09-26] MEDS: carvediloL 12.5 MG TAB PO SCH ×2 (08:53→21:08)
[2021-09-26] MEDS: FUROSEMIDE 40 MG TAB PO SCH ×2 (08:53→21:08)
[2021-09-26] MEDS: BENZONATATE 100 MG CAP PO SCH ×3 (08:54→21:07)
[2021-09-26] MEDS: LEVOTHYROXINE 125 MCG TAB PO SCH (08:54)
[2021-09-26] MEDS: cloNIDine HCL 0.1 MG TAB PO SCH ×2 (08:54→22:39)
[2021-09-26] MEDS ORDERED: ENOXAPARIN 40 MG/0.4 ML SYRINGE SQ SCH (09:00)
[2021-09-26] MEDS: BENZOCAINE/MENTHOL LOZENG 1 EACH LOZENGE MUCOUS MEM PRN ×3 (10:49→21:07)
[2021-09-26] MEDS: HEPARIN SOD,PORK IN 0.45% NACL 25,000 UNIT in 0.45% NACL 1 250ML.BAG IV SCH (10:49)
[2021-09-26] MEDS: ALBUTEROL NEB (CONC) 2.5 MG/0.5 ML INHALATION SCH ×3 (11:14→19:56)
--- NOTE | 2021-09-26 11:44 | P.CNPUL ---
History of Present Illness Consult date: 09/26/21 Requesting physician: Nita Arias Reason for consult: dyspnea Chief complaint: Shortness of breath, cough, congestion History of present illness: This a very pleasant 81-year-old female patient who follows with Dr. Pearson is her primary care provider. She has a history of chronic obstructive pulmonary disease/asthma, hyperlipidemia, hypertension, osteoarthritis, rheumatoid arthritis, pulmonary embolism, obstructive sleep apnea retained on CPAP, hypothyroidism, melanoma resected from her back, chronic diastolic congestive heart failure, chronic lower extremity edema with cellulitis and open wounds at times. She also has a history of previous PE and was on warfarin for some time but it was too upsetting to her stomach and it was discontinued. She presented here to the emergency room yesterday with complaints of increasing shortness of breath cough and congestion. She did test positive for coronary virus approximately 3 weeks ago. She's been having some central chest discomfort and minimal lower extremity edema. She normally wears oxygen at home at 5 L/m per nasal cannula. X-ray shows chronic emphysematous changes and cardiomegaly without acute pulmonary process. No significant change compared to prior x-ray on 08/26/2021. EKG revealed normal sinus rhythm with no significant ST or T wave abnormalities. CT angiogram was a suboptimal study but there was some con cern regarding a small partially occlusive emboli in the lingular branches. The patient was initiated on a heparin drip. White count 11.7. Hemoglobin 12.9. Sodium 134. Potassium 4.4. Creatinine 1.35. Troponin negative times one. ProBNP 262. Blood glucose 167. Carotid virus by PCR not detected. She is seen today in consultation on the regular medical floor. She is currently sitting up in a chair at the bedside. Awake and alert in no acute distress. She has been afebrile. Hemodynamically stable. Maintaining O2 saturations up to 97% on 5 L/m per nasal cannula. He's been initiated on Symbicort, DuoNeb inhalations, IV Solu-Medrol. She is on antibiotics in the form of Levaquin. Review of Systems REVIEW OF SYSTEMS: CONSTITUTIONAL: Denies any recent significant weight loss or weight gain. EYES: Denies change in vision. EARS, NOSE, MOUTH, THROAT: Denies headaches, denies sore throat. CARDIOVASCULAR: Positive for chest pain, no palpitations or syncopal episodes. RESPIRATORY: Positive for shortness of breath, cough, congestion no hemoptysis. GASTROINTESTINAL: Denies change in appetite, denies abdominal pain GENITOURINARY: Denies hematuria, denies infections. MUSKULOSKELETAL: Denies pain, denies swelling. INTEGUMENTARY: Denies rash, denies eczema. NEUROLOGICAL: Denies recent memory loss, no recent seizure activity. PSYCHIATRIC: Denies anxiety, denies depression. HEMATOLOGIC/LYMPHATIC: Denies anemia, denies enlarged lymph nodes. Past Medical History Past Medical History: Asthma, Cancer, Heart Failure, COPD, GERD/Reflux, Hyperlipidemia, Hypertension, Osteoarthritis (OA), Pneumonia, Pulmonary Embolus (PE), Rheumatoid Arthritis (RA), Sleep Apnea/CPAP/BIPAP, Thyroid Disorder Additional Past Medical History / Comment(s): COPD/asthma, chronic cough, hypothyroidism, history of basal cell carcinoma of the skin resected, history of melanoma of the skin involving the back, resected, history of diverticulosis/diverticulitis, history of fibrocystic disease, obstructive sleep apnea can sleep with the CPAP, varicose veins in lower extremities, hypothyroidism, covid 3-4 weeks ago. History of Any Multi-Drug Resistant Organisms: None Reported Past Surgical History: Bladder Surgery, Bowel Resection, Cholecystectomy, Heart Catheterization, Hernia Repair, Hysterectomy, Joint Replacement, Orthopedic Surgery Additional Past Surgical History / Comment(s): LEFT KNEE REPLACED, PARTIAL THYROIDECTOMY,HIATAL HERNIA REPAIR 07/2013, ABDOMINAL HERNIA REPAIR,MULTIPLE SKIN LESIONS-PT STATED HAS HAS BASAL,SQUAMOUS AND MELANOMA SKIN CA ( NECK,RT UPPER & LOWER THIGH,LT ARM,RT ARM, face, back-melanoma)SKIN GRAFTS TO VINOD.LEGS- LT EAR-LT MIDDLE FINGER,ACHILLES TENDON surgery. RT OVARY 1 TUBE REMOVED, SIGMOID RESECTION D/T BOWEL OBSTRUCTION,RT LITLE FINGER AMP, Past Anesthesia/Blood Transfusion Reactions: Previous Problems w/ Anesthesia, Motion Sickness, Postoperative Nausea & Vomiting (PONV) Additional Past Anesthesia/Blood Transfusion Reaction / Comment(s): STATES "HAS HAD SWELLING TO FACE,HANDS,ARMS AND SKIN TURNS "BEET RED"WITH ANESTHESIA-with IV sedation. states no problems with last surgery at [facility] 01/2017-anesthesia records on chart Past Psychological History: Anxiety Smoking Status: Former smoker Past Alcohol Use History: None Reported Additional Past Alcohol Use History / Comment(s): STARTED SMOKING 1963 AND QUIT 1973 SMOKED 1 PPD Past Drug Use History: None Reported - Past Family History Mother Family Medical History: Diabetes Mellitus Additional Family Medical History / Comment(s): HEART PROBLEMS Sister(s) Family Medical History: Diabetes Mellitus, Myocardial Infarction ([place]) Additional Family Medical History / Comment(s): EMPHYSEMA Father Family Medical History: Cancer Additional Family Medical History / Comment(s): LUNG CA. Medications and Allergies Home Medications Medication Instructions Recorded Confirmed Type Levothyroxine Sodium [Synthroid] 125 mcg PO DAILY@0700 10/18/20 09/25/21 History amLODIPine [Norvasc] 10 mg PO DAILY@0700 10/18/20 09/25/21 History Sertraline [Zoloft] 50 mg PO HS@189906/03/21 09/25/21 History cloNIDine HCL [Catapres] 0.3 mg PO BID@0700,189906/03/21 09/25/21 History Docusate [Colace] 400 mg PO HS@19006/29/21 09/25/21 History Furosemide [Lasix] 40 mg PO BID@0700,189906/29/21 09/25/21 History Mirtazapine [Remeron] 15 mg PO HS@1900 06/29/21 09/25/21 History Multivit-Min/Iron/Folic/Lutein 1 tab PO DAILY@0700 07/10/21 09/25/21 History [Centrum Silver Women Tablet] Simvastatin 40 mg PO HS@1900 07/10/21 09/25/21 History SILVER sulfADIAZINE Cream 1 applic TOPICAL BID@07,189907/27/21 09/25/21 History [Silvadene 1% Cream] hydrALAZINE HCL [Apresoline] 25 mg PO BID@0700,1900 07/27/21 09/25/21 History Acetaminophen [Tylenol] 500 - 1,000 mg PO Q6H PRN 08/26/21 09/25/21 History Black Elderberry 2000mg Capsule 4,000 mg PO BID@0700,19008/26/21 09/25/21 History Calcium Carbonate [Tums] 1,000 - 2,000 mg PO DAILY PRN 08/26/21 09/25/21 History Carvedilol [Coreg] 25 mg PO BID@0700,1900 08/26/21 09/25/21 History Guaifenesin/Dextromethorphan 20 ml PO DIRECTED PRN 08/26/21 09/25/21 History [Robitussin Cough-Chest Dm Liq] HYDROcodone/APAP 7.5-325MG [[place] 1 tab PO TID PRN 08/26/21 09/25/21 History 7.5-325] Lansoprazole [Prevacid] 30 mg PO DAILY@0700 08/26/21 09/25/21 History Menthol [[place]] 7.5 mg MM DIRECTED PRN 08/26/21 09/25/21 History Spironolactone 25 mg PO DAILY@0700 08/26/21 09/25/21 History Zolpidem Tartrate [Ambien] 5 mg PO HS PRN 08/26/21 09/25/21 History Allergy Relief 50 mg PO BID@0700,1900 09/25/21 09/25/21 History Ascorbic Acid [Vitamin C] 500 mg PO DAILY@0700 09/25/21 09/25/21 History Benzonatate [Benzonatate Perle] 200 mg PO TID@0700,1400,1900 09/25/21 09/25/21 History Cholecalciferol [Vitamin D3 (25 25 mcg PO DAILY@69909/25/21 09/25/21 History Mcg = 1000 Iu)] Colon Health Probiotic 1 cap PO DAILY@0700 09/25/21 09/25/21 History Ipratropium-Albuterol Nebulize 3 ml INHALATION RT-QID 09/25/21 09/25/21 History [Duoneb 0.5 mg-3 mg/3 ml Soln] Levofloxacin [Levaquin] 500 mg PO BID@0700,1900 09/25/21 09/25/21 History Quercetin Bromelain Caps 2 cap PO DAILY@0700 09/25/21 09/25/21 History Zinc 50 mg PO DAILY@0700 09/25/21 09/25/21 History guaiFENesin [Mucinex] 1,200 mg PO Q12H PRN 09/25/21 09/25/21 History Apixaban [Eliquis Starter Pack 5 - 10 mg PO DIRECTED 30 Days 09/26/21 Rx (for VTE)] #1 each Allergies Allergy/AdvReac Type Severity Reaction Status Date / Time adhesive Allergy SKIN Verified 09/25/21 13:35 REDDENS & BLISTERS- PAPER TAPE OKAY azithromycin [From Zithromax] Allergy Nausea & Verified 09/25/21 13:35 Vomiting meperidine HCl [From Demerol] Allergy Nausea & Verified 09/25/21 13:35 Vomiting morphine Allergy Nausea & Verified 09/25/21 13:35 Vomiting onion Allergy Unknown Verified 09/25/21 13:35 Sulfa (Sulfonamide Allergy Nausea & Verified 09/25/21 13:35 Antibiotics) Vomiting tree and shrub pollen Allergy Cough Verified 09/25/21 13:35 aspirin AdvReac STOMACH Verified 09/25/21 13:35 HERRERA anesthesia Allergy facial/arms/hands Uncoded 09/25/21 12:36 swelling,skin"turns beet red", nausea DISSOLVING SUTURES Allergy INFECTION Uncoded 09/25/21 12:36 Physical Exam Vitals: Vital Signs Temp Pulse Pulse Resp BP BP Pulse Ox 09/26/21 11:27 78 09/26/21 11:14 78 09/26/21 10:47 69 24 09/26/21 08:13 84 09/26/21 08:02 84 09/26/21 08:00 69 24 09/26/21 07:05 97.7 F 69 24 147/75 97 09/26/21 00:22 97.5 F L 73 20 137/83 96 09/25/21 20:08 76 09/25/21 19:55 75 09/25/21 19:26 98.8 F 74 21 161/75 96 09/25/21 17:13 97.7 F 77 22 172/96 96 09/25/21 16:54 78 09/25/21 16:47 72 09/25/21 16:43 73 22 172/88 96 09/25/21 16:36 73 22 172/88 96 09/25/21 12:29 98.5 F 62 18 184/79 96 Intake and Output 09/25/21 09/26/21 09/26/21 22:59 06:59 14:59 Intake Total 170.34 79.66 Balance 170.34 79.66 Intake: Intake, IV Titration 170.34 79.66 Amount Heparin Sod,Pork in 0.45% 170.34 79.66 NaCl 25,000 unit In 0.45 % NaCl 1 250ml.bag @ 18 UNITS/KG/HR 17.962 mls/hr IV .[id number] [facility] Rx#: [id number] Other: Voiding Method Toilet Toilet Toilet # Voids 1 3 Weight 99.79 kg GENERAL EXAM: Alert, very pleasant 81-year-old female patient, on 5 L nasal cannula, up in a chair at the bedside, comfortable in no apparent distress. HEAD: Normocephalic. EYES: Normal reaction of pupils, equal size. NOSE: Clear with pink turbinates. THROAT: No erythema or exudates. NECK: No masses, no JVD. CHEST: No chest wall deformity. LUNGS: Equal air entry with mild end expiratory wheeze, diminished. CVS: S1 and S2 normal with no audible murmur, regular rhythm. ABDOMEN: No hepatosplenomegaly, normal bowel sounds, no guarding or rigidity. SPINE: No scoliosis or deformity SKIN: No rashes CENTRAL NERVOUS SYSTEM: No focal deficits, tone is normal in all 4 extremities. EXTREMITIES: There is no peripheral edema. No clubbing, no cyanosis. Peripher al pulses are intact. Results - Laboratory Findings CBC and BMP: 09/26/21 02:28 09/26/21 02:28 PT/INR, D-dimer PT 10.5 sec (9.0-12.0) 09/25/21 13:12 INR 1.0 (<1.2) 09/25/21 13:12 Abnormal lab findings: Abnormal Labs 09/25/21 09/25/21 09/26/21 13:12 13:12 02:28 WBC 10.8 H Neutrophils # 7.9 H APTT 92.6 H Sodium 135 L Chloride Carbon Dioxide 31 H BUN Creatinine 1.08 H Glucose 167 H 09/26/21 09/26/21 02:28 02:28 WBC 11.7 H Neutrophils # APTT Sodium 134 L Chloride 94 L Carbon Dioxide BUN 21 H Creatinine 1.35 H Glucose 389 H - Diagnostic Findings Chest x-ray: image reviewed CT scan - chest: image reviewed Assessment and Plan Assessment: 1 Acute on chronic hypoxemic respiratory failure secondary to an acute exacerbation of chronic obstructive pulmonary disease and small nonocclusive pulmonary emboli of the lingula. 2 Small nonocclusive pulmonary emboli the lingula. Initiated on a heparin drip 3 Previous history of PE intolerant to warfarin 4 Rheumatoid arthritis 5 Obstructive sleep apnea nontolerant to CPAP therapy 6 History of skin cancer in the form of squamous cell carcinoma and basal cell carcinoma and melanoma, all resected 7 History of diverticular disease 8 Gastroesophageal reflux disease 9 Remote history of pulmonary embolism, in a postoperative setting 10 Hypertension 11 Hypothyroidism 12 Chronic back pain has been on [place] 7.5 and she'll be given 1 tablet every 24 hours on an as-needed basis for ongoing pain. 13 Coronary artery disease with nonocclusive disease based on a cardiac catheterization from 2018 with mild disease involving the LAD, preserved LV function Plan: The patient was seen and evaluated Chest x-ray, CAT scans and labs reviewed We will discontinue heparin drip, initiate Eliquis Continue Levaquin, Solu-Medrol, bronchodilators Titrate the FiO2 as tolerated Increase her activity as tolerated We will continue to follow and make further recommendations based on her clinical status I, the cosigning physician, performed a history & physical examination of the patient. Lungs sounds with bilateral end expiratory wheeze, diminished. Maintaining good O2 saturations in the 90s on 5 L/m per nasal cannula. I discussed the assessment and plan of care with my nurse practitioner, Lashae Blackburn. I attest to the above consultation as dictated by her. Time with Patient: Greater than 30
[2021-09-26] MEDS: APIXABAN 5 MG TAB PO SCH ×2 (12:45→21:08)
[2021-09-26] MEDS: guaiFENesin-DM 100-10MG/5ML 10 ML CUP PO PRN ×2 (16:00→21:07)
[2021-09-26 17:19] LABS: Glucose,Whole Blood 477 mg/dL (75-99)
[2021-09-26] MEDS: INSULIN ASPART (NovoLOG) 100 UNIT/ML VIAL SQ SCH ×2 (18:20→21:07)
[2021-09-26] MEDS: LEVOFLOXACIN 250 MG TAB PO SCH (18:21)
[2021-09-26 20:53] LABS: Glucose,Whole Blood 442 mg/dL (75-99)
[2021-09-26] MEDS: MIRTAZAPINE 15 MG TAB PO SCH (21:08)
[2021-09-26] MEDS: ATORVASTATIN 20 MG TAB PO SCH (21:08)
[2021-09-26] MEDS: SERTRALINE 50 MG TAB PO SCH (21:08)
[2021-09-26] MEDS: DOCUSATE 100 MG CAP PO SCH (21:08)
[2021-09-26] MEDS ORDERED: INSULIN DETEMIR (LEVEMIR) 100 UNIT/ML SYR SQ SCH (23:45)
[2021-09-27] MEDS: methylPREDNISolone SOD SUCCI 125 MG/2 ML VIAL IV SCH ×2 (00:38→05:32)
--- NOTE | 2021-09-27 01:29 | P.PN ---
Subjective Progress Note Date: 09/26/21 Patient is a pleasant 81-year-old female still complains of shortness of breath, cough with greenish sputum production believe patient may have pneumonia. Patient doesn't have any fever the 7 leukocytosis COVID-19 is negative. Patient does have chronic hypercapnic respiratory failure uses around 4 L of oxygen appears to have advanced COPD although patient didn't smoke for 50 years. Patient does have chronic venous is of bilateral lower extremities because of which patient uses Lasix and is also on Aldactone. Patient was told she has heart failure although I reviewed her echocardiogram which did not show any decreased ejection fraction, patient was never admitted for pulmonary edema in the past. Patient does have history of rheumatoid arthritis. Patient will also complains of greenish sputum production chest x-ray and CT angios the chest did not show any pneumonia. Patient had greenish sputum production about 2 days ago note on to yellowish in color. Patient is also receiving Levoquin at home. Patient's baseline creatinine is around 0.8 present creatinine is 1.08. 09/26/2021 Patient is seen in follow up and continues to have shortness of breath. Patient is continued on 5L via NC and continues with IV steroids and oral lasix and breathing inhalational treatments. Patient was maintained on IV heparin for CTA findings of small partially occlusive emboli in the lingula branches that are now present. Script for Eliquis sent to pharmacy to verify coverage and discussed with Case management. Blood sugars elevated most likely steroid induced and will add sliding scale and long acting low dose at night. Labs: WBC is 11.7, hgb is 12.9, plts are 294, sodium is 134, potassium is 4.4, bun is 21, creat is 1.35 Review of systems: Constitutional: No reports of fatigue, fever, or chills Cardiovascular: No reports of chest pain or palpitations Respiratory: reports of continued shortness of breath and cough GI: No reports of nausea, vomiting, or diarrhea : No reports of dysuria or retention Neurovascular: reports of generalized weakness All medications have been reviewed Active Medications Acetaminophen (Acetaminophen Tab 325 Mg Tab) 650 mg PO Q6H PRN PRN Reason: Fever and/ or Pain Hydrocodone Bitart/Acetaminophen (Hydrocodone/Apap 7.5-325mg 1 Each Tab) 1 each PO TID PRN PRN Reason: Pain Albuterol Sulfate (Albuterol Neb (Conc) 2.5 Mg/0.5 Ml) 2.5 mg INHALATION RT-QID [facility] Last Admin: 09/26/21 11:14 Dose: Not Given Documented by: Albuterol/Ipratropium (Ipratropium-Albuterol 3 Ml Neb) 3 ml INHALATION RT-Q4H PRN PRN Reason: Shortness Of Breath Or Wheezing Albuterol/Ipratropium (Ipratropium-Albuterol 3 Ml Neb) 3 ml INHALATION RT-QID [facility] Last Admin: 09/26/21 11:14 Dose: 3 ml Documented by: Amlodipine Besylate (Amlodipine 10 Mg Tab) 10 mg PO DAILY@0700 [facility] Last Admin: 09/26/21 08:53 Dose: 10 mg Documented by: Apixaban (Apixaban 5 Mg Tab) 10 mg PO BID [facility]; Protocol Stop: 10/02/21 21:01 Last Admin: 09/26/21 12:45 Dose: 10 mg Documented by: Atorvastatin Calcium (Atorvastatin 20 Mg Tab) 20 mg PO HS@1900 [facility] Last Admin: 09/25/21 19:43 Dose: 20 mg Documented by: Benzocaine/Menthol (Benzocaine/Menthol Lozeng 1 Each Lozenge) 1 each MUCOUS MEM Q2H PRN PRN Reason: Cough Last Admin: 09/26/21 10:49 Dose: 1 each Documented by: Benzonatate (Benzonatate 100 Mg Cap) 200 mg PO TID@0700,1400,1900 [facility] Last Admin: 09/26/21 08:54 Dose: 200 mg Documented by: Budesonide/Formoterol Fumarate (Symbicort 160-4.5 Mcg Inhaler) 2 puff INHALATION RT-BID [facility] Last Admin: 09/26/21 08:23 Dose: 2 puff Documented by: Carvedilol (Carvedilol 12.5 Mg Tab) 25 mg PO BID@0700,1900 [facility] Last Admin: 09/26/21 08:53 Dose: 25 mg Documented by: Cholecalciferol (Cholecalciferol 25 Mcg (1000 Iu) Tablet) 25 mcg PO DAILY@0700 [facility] Last Admin: 09/26/21 08:53 Dose: 25 mcg Documented by: Clonidine (Clonidine Hcl 0.1 Mg Tab) 0.3 mg PO BID@0700,1900 [facility] Last Admin: 09/26/21 08:54 Dose: 0.3 mg Documented by: Docusate Sodium (Docusate 100 Mg Cap) 400 mg PO HS@1899 [facility] Last Admin: 09/25/21 19:42 Dose: 400 mg Documented by: Furosemide (Furosemide 40 Mg Tab) 40 mg PO BID@ [facility] Last Admin: 09/26/21 08:53 Dose: 40 mg Documented by: Guaifenesin/Dextromethorphan (Guaifenesin-Dm 100-10mg/5ml 10 Ml Cup) 10 ml PO QID PRN PRN Reason: Cough Last Admin: 09/25/21 21:14 Dose: 10 ml Documented by: Insulin Aspart (Insulin Aspart (Novolog) 100 Unit/Ml Vial) 0 unit SQ [facility]; Protocol Levofloxacin (Levofloxacin 500 Mg Tab) 500 mg PO Q24H [facility] Last Admin: 09/25/21 17:28 Dose: Not Given Documented by: Levothyroxine Sodium (Levothyroxine 125 Mcg Tab) 125 mcg PO DAILY@699 [facility] Last Admin: 09/26/21 08:54 Dose: 125 mcg Documented by: Methylprednisolone Sodium Succinate (Methylprednisolone Sod Succi 125 Mg/2 Ml Vial) 60 mg IV Q6HR [facility] Last Admin: 09/26/21 12:45 Dose: 60 mg Documented by: Mirtazapine (Mirtazapine 15 Mg Tab) 15 mg PO HS@1899 [facility] Last Admin: 09/25/21 19:42 Dose: 15 mg Documented by: Pantoprazole Sodium (Pantoprazole 40 Mg Tablet) 40 mg PO DAILY@699 [facility] Last Admin: 09/26/21 08:53 Dose: 40 mg Documented by: Sertraline HCl (Sertraline 50 Mg Tab) 50 mg PO HS@1899 [facility] Last Admin: 09/25/21 19:43 Dose: 50 mg Documented by: Silver Sulfadiazine (Silver Sulfadiazine 1% Cream 25 Gm Tube) 1 applic TOPICAL BID@ [facility] Last Admin: 09/26/21 08:55 Dose: 1 applic Documented by: Zolpidem Tartrate (Zolpidem 5 Mg Tab) 5 mg PO HS PRN PRN Reason: Insomnia PHYSICAL EXAMINATION: GENERAL: The patient is alert and oriented x3, not in any acute distress. Well developed, well nourished. Currently on 5 L via nasal cannula she wears chronically HEENT: Pupils are round and equally reacting to light. EOMI. No scleral icterus. No conjunctival pallor. Normocephalic, atraumatic. No pharyngeal erythema. No thyromegaly. CARDIOVASCULAR: S1 and S2 present. No murmurs, rubs, or gallops. PULMONARY: She has significant wheezing on exam, diminished breath sounds bilaterally ABDOMEN: Soft, nontender, nondistended, normoactive bowel sounds. No palpable organomegaly. MUSCULOSKELETAL: No joint swelling or deformity. EXTREMITIES: No cyanosis, clubbing, mild pedal edema. NEUROLOGICAL: Gross neurological examination did not reveal any focal deficits. SKIN: Chronic lower extremity redness no significant edema Assessment and plan: -Acute on chronic hypoxic and hypercapnic respiratory failure is admitted for COPD exacerbation, patient will continue on systemic steroids inhalational treatments. Pulmonary following -Pulmonary emboli noted on CTA -elevated blood glucose most likely steroid induced. Will add sliding scale and low dose long acting. continue accuchecks -Bilateral lower extremity chronic venous stasis presently only mild edema patient will be resumed on home dose of Lasix and Aldactone my suspicion is low that patient has heart failure. -Hypertension -Depression -hypothyroidism -Hyperlipidemia -Tracheobronchitis for which patient on levofloxacin which will be continued -History of sleep apnea patient uses BiPAP which will be continued -History of PE in the past presently not on any anticoagulation -rheumatoid arthritis -DVT prophylaxis: IV heparin Plan: CTA findings as mentioned previously noted and was started on IV heparin. Eliquis sent to the pharmacy to verify coverage and will likely transition. Pulmonary following and maintained on lasix, IV steroids, breathing inhalational treatments. Will repeat am labs and continue to monitor closely. Pt/OT to evaluate. Patients blood sugars elevated and most likely steroid induced and will add sliding scale and 10 units of levemir. Continue accuchecks. Objective - Vital Signs Vital signs: Vital Signs Temp 97.7 F 09/26/21 07:05 Pulse 84 09/26/21 08:13 Resp 24 09/26/21 07:05 BP 147/75 09/26/21 07:05 Pulse Ox 97 09/26/21 07:05 Intake & Output 09/25/21 09/26/21 09/26/21 18:59 06:59 18:59 Intake Total 170.34 Balance 170.34 Weight 99.79 kg Intake: Intake, IV Titration 170.34 Amount Heparin Sod,Pork in 0.45% 170.34 NaCl 25,000 unit In 0.45 % NaCl 1 250ml.bag @ 18 UNITS/KG/HR 17.962 mls/hr IV .[id number] [facility] Rx#: [id number] Other: Voiding Method Toilet # Voids 3 - Labs CBC & Chem 7: 09/26/21 02:09/26/21 02:28 Labs: Abnormal Lab Results - Last 24 Hours (Table) 09/25/21 09/25/21 09/26/21 Range/Units 13:12 13:12 02: WBC 10.8 H (3.8-10.6) k/uL Neutrophils # 7.9 H (1.3-7.7) k/uL APTT 92.6 H (22.0-30.0) sec Sodium 135 L (137-145) mmol/L Chloride (98-107) mmol/L Carbon Dioxide 31 H (22-30) mmol/L BUN (7-17) mg/dL Creatinine 1.08 H (0.52-1.04) mg/dL Glucose 167 H (74-99) mg/dL 09/26/21 09/26/21 Range/Units 02:28 02:28 WBC 11.7 H (3.8-10.6) k/uL Neutrophils # (1.3-7.7) k/uL APTT (22.0-30.0) sec Sodium 134 L (137-145) mmol/L Chloride 94 L (98-107) mmol/L Carbon Dioxide (22-30) mmol/L BUN 21 H (7-17) mg/dL Creatinine 1.35 H (0.52-1.04) mg/dL Glucose 389 H (74-99) mg/dL
[2021-09-27 07:14] LABS: Glucose,Whole Blood 401 mg/dL (75-99)
[2021-09-27] MEDS: INSULIN ASPART (NovoLOG) 100 UNIT/ML VIAL SQ SCH ×3 (07:36→17:48)
[2021-09-27] MEDS: cloNIDine HCL 0.1 MG TAB PO SCH (07:42)
[2021-09-27] MEDS: FUROSEMIDE 40 MG TAB PO SCH (07:44)
[2021-09-27] MEDS: amLODIPine 10 MG TAB PO SCH (07:45)
[2021-09-27] MEDS: CHOLECALCIFEROL 25 MCG (1000 IU) TABLET PO SCH (07:45)
[2021-09-27] MEDS: carvediloL 12.5 MG TAB PO SCH (07:45)
[2021-09-27] MEDS: LEVOTHYROXINE 125 MCG TAB PO SCH (07:45)
[2021-09-27] MEDS: PANTOPRAZOLE 40 MG TABLET PO SCH (07:45)
[2021-09-27] MEDS: APIXABAN 5 MG TAB PO SCH (07:46)
[2021-09-27] MEDS: BENZONATATE 100 MG CAP PO SCH ×2 (07:49→15:00)
[2021-09-27] MEDS ORDERED: INSULIN DETEMIR (LEVEMIR) 100 UNIT/ML SYR SQ STA (07:54)
[2021-09-27] MEDS: IPRATROPIUM-ALBUTEROL 3 ML NEB INHALATION SCH ×3 (08:08→15:53)
[2021-09-27] MEDS: SYMBICORT 160-4.5 MCG INHALER INHALATION SCH (08:08)
[2021-09-27] MEDS: ALBUTEROL NEB (CONC) 2.5 MG/0.5 ML INHALATION SCH ×2 (08:08→11:18)
[2021-09-27 08:40] LABS: African American GFR (CKD) 49 (>60 ml/min/1.73 sqM); Anion Gap 6 mmol/L; Blood Urea Nitrogen 30 mg/dL (7-17); Calcium 9.4 mg/dL (8.4-10.2); Carbon Dioxide 31 mmol/L (22-30); Chloride 98 mmol/L (98-107); Glucose 396 mg/dL (74-99); Non-African American GFR(CKD) 43 (>60 ml/min/1.73 sqM); Potassium 4.5 mmol/L (3.5-5.1); Sodium 135 mmol/L (137-145)
--- NOTE | 2021-09-27 11:18 | P.PN ---
Subjective Progress Note Date: 09/27/21 Principal diagnosis: COPD exacerbation/PE This a very pleasant 81-year-old female patient who follows with Dr. Pearson is her primary care provider. She has a history of chronic obstructive pulmonary disease/asthma, hyperlipidemia, hypertension, osteoarthritis, rheumatoid arthri tis, pulmonary embolism, obstructive sleep apnea retained on CPAP, hypothyroidism, melanoma resected from her back, chronic diastolic congestive heart failure, chronic lower extremity edema with cellulitis and open wounds at times. She also has a history of previous PE and was on warfarin for some time but it was too upsetting to her stomach and it was discontinued. She presented here to the emergency room yesterday with complaints of increasing shortness of breath cough and congestion. She did test positive for coronary virus approximately 3 weeks ago. She's been having some central chest discomfort and minimal lower extremity edema. She normally wears oxygen at home at 5 L/m per nasal cannula. X-ray shows chronic emphysematous changes and cardiomegaly without acute pulmonary process. No significant change compared to prior x-ray on 08/26/2021. EKG revealed normal sinus rhythm with no significant ST or T wave abnormalities. CT angiogram was a suboptimal study but there was some concern regarding a small partially occlusive emboli in the lingular branches. The patient was initiated on a heparin drip. White count 11.7. Hemoglobin 12.9. Sodium 134. Potassium 4.4. Creatinine 1.35. Troponin negative times one. ProBNP 262. Blood glucose 167. Carotid virus by PCR not detected. She is seen today in consultation on the regular medical floor. She is currently sitting up in a chair at the bedside. Awake and alert in no acute distress. She has been afebrile. Hemodynamically stable. Maintaining O2 saturations up to 97% on 5 L/m per nasal cannula. He's been initiated on Symbicort, DuoNeb inhalations, IV Solu-Medrol. She is on antibiotics in the form of Levaquin. The patient is seen today 2021 in follow-up on the regular medical floor. She is currently sitting up in a chair at the bedside. Awake and alert in no acute distress. Denies any worsening shortness of breath, cough or congestion. She remains dyspneic on exertion. She does have home oxygen. Maintaining O2 saturations in the upper 90s on 5 L/m per nasal cannula. Afebrile. Sodium 135. Potassium 4.5. Bicarb 30. Creatinine 1.19. Glucose 396. She remains on IV Solu-Medrol, Symbicort, DuoNeb inhalations. Anticoagulated with Eliquis. Objective - Vital Signs Vital signs: Vital Signs Temp 97.9 F 09/27/21 07:00 Pulse 78 09/27/21 08:21 Resp 20 09/27/21 07:00 BP 197/94 09/27/21 07:00 Pulse Ox 97 09/27/21 07:00 Intake & Output 09/26/21 09/27/21 09/27/21 18:59 06:59 18:59 Intake Total 597.66 Balance 597.66 Intake: Intake, IV Titration 79.66 Amount Heparin Sod,Pork in 0.45% 79.66 NaCl 25,000 unit In 0.45 % NaCl 1 250ml.bag @ 18 UNITS/KG/HR 17.962 mls/hr IV .[id number] [facility] Rx#: [id number] Oral 518 Other: Voiding Method Toilet Toilet # Voids 2 3 1 # Bowel Movements 1 - Exam GENERAL EXAM: Alert, very pleasant 81-year-old female patient, on 5 L nasal cannula, up in a chair at the bedside, comfortable in no apparent distress. HEAD: Normocephalic. EYES: Normal reaction of pupils, equal size. NOSE: Clear with pink turbinates. THROAT: No erythema or exudates. NECK: No masses, no JVD. CHEST: No chest wall deformity. LUNGS: Equal air entry with mild end expiratory wheeze, diminished. CVS: S1 and S2 normal with no audible murmur, regular rhythm. ABDOMEN: No hepatosplenomegaly, normal bowel sounds, no guarding or rigidity. SPINE: No scoliosis or deformity SKIN: No rashes CENTRAL NERVOUS SYSTEM: No focal deficits, tone is normal in all 4 extremities. EXTREMITIES: There is no peripheral edema. No clubbing, no cyanosis. Peripheral pulses are intact. - Labs CBC & Chem 7: 09/26/21 02:28 09/27/21 07:30 Labs: Abnormal Lab Results - Last 24 Hours (Table) 09/26/21 09/26/21 09/26/21 Range/Units 11:23 17:13 20:51 APTT 80.0 H (22.0-30.0) sec Sodium (137-145) mmol/L Carbon Dioxide (22-30) mmol/L BUN (7-17) mg/dL Creatinine (0.52-1.04) mg/dL Glucose (74-99) mg/dL POC Glucose (mg/dL) 477 H 442 H (75-99) mg/dL 09/27/21 09/27/21 Range/Units 07:11 07:30 APTT (22.0-30.0) sec Sodium 135 L (137-145) mmol/L Carbon Dioxide 31 H (22-30) mmol/L BUN 30 H (7-17) mg/dL Creatinine 1.19 H (0.52-1.04) mg/dL Glucose 396 H (74-99) mg/dL POC Glucose (mg/dL) 401 H (75-99) mg/dL Assessment and Plan Assessment: 1 Acute on chronic hypoxemic respiratory failure secondary to an acute exacerbation of chronic obstructive pulmonary disease and small nonocclusive pulmonary emboli of the lingula. 2 Small nonocclusive pulmonary emboli the lingula. Initiated on a heparin drip and transitioned to Eliquis 3 Previous history of PE intolerant to warfarin 4 Rheumatoid arthritis 5 Obstructive sleep apnea nontolerant to CPAP therapy 6 History of skin cancer in the form of squamous cell carcinoma and basal cell carcinoma and melanoma, all resected 7 History of diverticular disease 8 Gastroesophageal reflux disease 9 Remote history of pulmonary embolism, in a postoperative setting 10 Hypertension 11 Hypothyroidism 12 Chronic back pain has been on [place] 7.5 and she'll be given 1 tablet every 24 hours on an as-needed basis for ongoing pain. 13 Coronary artery disease with nonocclusive disease based on a cardiac catheterization from 2018 with mild disease involving the LAD, preserved LV function Plan: The patient was seen and evaluated She has been transitioned to Eliquis Cleared for transfer back to her assisted care facility Informed she will remain short of breath for the most part due to her COPD Discontinue IV Solu-Medrol Complete a prednisone taper starting at 40 mg daily for 4 days Continue her home pulmonary medications, home oxygen I, the cosigning physician, performed a history & physical examination of the patient. Lungs sounds with bilateral end expiratory wheeze, diminished. M aintaining good O2 saturations in the 90s on 5 L/m per nasal cannula. I discussed the assessment and plan of care with my nurse practitioner, Lashae Blackburn. I attest to the above note as dictated by her.
[2021-09-27 11:53] LABS: Glucose,Whole Blood 553 mg/dL (75-99)
[2021-09-27] MEDS ORDERED: INSULIN ASPART (NovoLOG) 100 UNIT/ML VIAL SQ ONE ×2 (12:15→14:38)
[2021-09-27 14:38] LABS: Glucose,Whole Blood 459 mg/dL (75-99)
[2021-09-27 16:04] VITALS: BP 169/74; RESP 22; TEMP 98.3
[2021-09-27 16:17] VITALS: PULSE 70
[2021-09-27 16:57] LABS: Glucose,Whole Blood 301 mg/dL (75-99)
[2021-09-27] MEDS: LEVOFLOXACIN 250 MG TAB PO SCH (17:49)
[2021-09-27] MEDS ORDERED: INSULIN DETEMIR (LEVEMIR) 100 UNIT/ML SYR SQ SCH (21:00)
[2021-09-28] MEDS ORDERED: predniSONE 20 MG TAB PO SCH (09:00)
--- NOTE | 2021-09-28 09:57 | P.DS ---
Providers Date of admission: 09/26/21 11:32 Expected date of discharge: 09/27/21 Attending physician: Nita Arias Consults: 09/25/21 14:13 Consult Physician Routine Consulting Provider: Ying Pearson Consult Reason/Comments: copd Do you want consulting provider notified?: Yes Primary care physician: Ying Pearson Hospital Course: Final diagnosis -Acute on chronic hypoxic and hypercapnic respiratory failure is admitted for COPD exacerbation -Pulmonary emboli noted on CTA -elevated blood glucose most likely steroid induced. Will add sliding scale and low dose long acting. continue accuchecks -Bilateral lower extremity chronic venous stasis presently only mild edema patient will be resumed on home dose of Lasix and Aldactone my suspicion is low that patient has heart failure. -Hypertension -Depression -hypothyroidism -Hyperlipidemia -Tracheobronchitis for which patient on levofloxacin which will be continued -History of sleep apnea patient uses BiPAP which will be continued -History of PE in the past presently not on any anticoagulation -rheumatoid arthritis -DVT prophylaxis -No code -Palliative care in the outpatient setting Discharge disposition Patient is being discharged in a stable condition with guarded prognosis to [facility]. Patient will continue with palliative care patient. Patient will follow-up with Dr. Pearson upon discharge. Patient will continue with a short course of oral antibiotics in the form of recurrent 250 mg for the next 5 days Patient will also continue on a prednisone taper in the outpatient setting. Total time taken is greater than 35 minutes. Hospital course Is an 81-year-old female who was recently admitted with worsening shortness of breath cough and sputum production and was being closely monitored. Pulmonary evaluated the patient and patient wasn't COPD acute exacerbation and maintained on high-dose steroids and breathing treatments. Patient had been on Levaquin at home and will continue to complete the course. Patient will be on a prednisone taper starting at 40 mg for 4 days and tapering down. Patient's blood sugars have been extremely high with no history of diabetes and patient states this occurs every time she is on steroids and was maintained on long-acting along with sliding scale. Patient will be provided with a prescription for glucometer and testing supplies and will continue with short course of insulin and long- acting as blood sugars were in the 4 to 500s. Patient's was also discussed in detail with daughter and the [facility] is capable of monitoring blood sugar s and insulin. Patient underwent CTA for an elevated d-dimer which was positive for PE and patient does have past medical history of PE although was not on anticoagulant. Patient was maintained on IV heparin and transition to Eliquis. Patient is starting on 10 mg twice daily for 1 week and will titrate down to 5 mg twice a day thereafter. Currently no reports of chest pain, worsening shortness of breath, or palpitations. Patient is afebrile. No reports of nausea or vomiting and patient is tolerating diet. Patient and family will continue with palliative care in the outpatient setting. Guarded prognosis. PHYSICAL EXAMINATION: GENERAL: The patient is alert and oriented x3, not in any acute distress. Well developed, well nourished. Currently on 5 L via nasal cannula she wears chron ically HEENT: Pupils are round and equally reacting to light. EOMI. No scleral icterus. No conjunctival pallor. Normocephalic, atraumatic. No pharyngeal erythema. No thyromegaly. CARDIOVASCULAR: S1 and S2 present. No murmurs, rubs, or gallops. PULMONARY: She has significant wheezing on exam, diminished breath sounds bilaterally ABDOMEN: Soft, nontender, nondistended, normoactive bowel sounds. No palpable organomegaly. MUSCULOSKELETAL: No joint swelling or deformity. EXTREMITIES: No cyanosis, clubbing, mild pedal edema. NEUROLOGICAL: Gross neurological examination did not reveal any focal deficits. SKIN: Chronic lower extremity redness no significant edema Please refer to medication reconciliation sheet for a list of medications. Patient Condition at Discharge: Fair Plan - Discharge Summary Discharge Rx Participant: No New Discharge Prescriptions: New Apixaban [Eliquis Starter Pack (for VTE)] 5 - 10 mg PO DIRECTED 30 Days #1 each Insulin Detemir (Levemir) [Levemir] 10 unit SQ BID@0700,2100 30 Days #4 pen predniSONE [Deltasone] 40 mg PO DAILY #24 tab Ipratropium-Albuterol Nebulize [Duoneb 0.5 mg-3 mg/3 ml Soln] 3 ml INHALATION RT-Q4H PRN ml PRN Reason: Shortness Of Breath Or Wheezing Levofloxacin [Levaquin] 250 mg PO Q24H 5 Days #5 tab INSULIN ASPART (NovoLOG) [NovoLOG (formulary)] 30 unit SQ ACHS 30 Days #5 pen Budesonide-Formot 160-4.5 Mcg [Symbicort 160-4.5 Mcg Inhaler] 2 puff INHALATION RT-BID 30 Days #8 gm Continue Levothyroxine Sodium [Synthroid] 125 mcg PO DAILY@0700 amLODIPine [Norvasc] 10 mg PO DAILY@0700 Sertraline [Zoloft] 50 mg PO HS@1900 Acetaminophen [Tylenol] 500 - 1,000 mg PO Q6H PRN PRN Reason: Fever And/ Or Pain Calcium Carbonate [Tums] 1,000 - 2,000 mg PO DAILY PRN PRN Reason: Gi Upset Menthol [[place]] 7.5 mg MM DIRECTED PRN PRN Reason: Cough Spironolactone 25 mg PO DAILY@0700 Benzonatate [Benzonatate Perle] 200 mg PO TID@0700,1400,1900 guaiFENesin [Mucinex] 1,200 mg PO Q12H PRN PRN Reason: Congestion cloNIDine HCL [Catapres] 0.3 mg PO BID@0700,1900 Mirtazapine [Remeron] 15 mg PO HS@1900 Furosemide [Lasix] 40 mg PO BID@0700,1900 Docusate [Colace] 400 mg PO HS@1900 Simvastatin 40 mg PO HS@1900 Multivit-Min/Iron/Folic/Lutein [Centrum Silver Women Tablet] 1 tab PO DAILY@0700 SILVER sulfADIAZINE Cream [Silvadene 1% Cream] 1 applic TOPICAL BID@0700,1900 Zolpidem Tartrate [Ambien] 5 mg PO HS PRN PRN Reason: Insomnia Guaifenesin/Dextromethorphan [Robitussin Cough-Chest Dm Liq] 20 ml PO DIRECTED PRN PRN Reason: Cough HYDROcodone/APAP 7.5-325MG [Bryan 7.5-325] 1 tab PO TID PRN PRN Reason: Pain Lansoprazole [Prevacid] 30 mg PO DAILY@0700 Carvedilol [Coreg] 25 mg PO BID@0700,1900 Black Elderberry 2000mg Capsule 4,000 mg PO BID@0700,1900 Allergy Relief 50 mg PO BID@0700,1900 Colon Health Probiotic 1 cap PO DAILY@0700 Quercetin Bromelain Caps 2 cap PO DAILY@0700 Ascorbic Acid [Vitamin C] 500 mg PO DAILY@0700 Cholecalciferol [Vitamin D3 (25 Mcg = 1000 Iu)] 25 mcg PO DAILY@07 Ipratropium-Albuterol Nebulize [Duoneb 0.5 mg-3 mg/3 ml Soln] 3 ml INHALATION RT-QID Zinc 50 mg PO DAILY@0700 Discontinued Levofloxacin [Levaquin] 500 mg PO BID@07,1899 hydrALAZINE HCL [Apresoline] 25 mg PO BID@0700,190 Discharge Medication List Levothyroxine Sodium [Synthroid] 125 mcg PO DAILY@0710/18/20 [History] amLODIPine [Norvasc] 10 mg PO DAILY@0710/18/20 [History] Sertraline [Zoloft] 50 mg PO HS@189906/03/21 [History] cloNIDine HCL [Catapres] 0.3 mg PO BID@07,189906/03/21 [History] Docusate [Colace] 400 mg PO HS@189906/29/21 [History] Furosemide [Lasix] 40 mg PO BID@07,189906/29/21 [History] Mirtazapine [Remeron] 15 mg PO HS@189906/29/21 [History] Multivit-Min/Iron/Folic/Lutein [Centrum Silver Women Tablet] 1 tab PO DAILY@69907/10/21 [History] Simvastatin 40 mg PO HS@189907/10/21 [History] SILVER sulfADIAZINE Cream [Silvadene 1% Cream] 1 applic TOPICAL BID@699,189907/27/21 [History] Acetaminophen [Tylenol] 500 - 1,000 mg PO Q6H PRN 08/26/21 [History] Black Elderberry 2000mg Capsule 4,000 mg PO BID@0700,189908/26/21 [History] Calcium Carbonate [Tums] 1,000 - 2,000 mg PO DAILY PRN 08/26/21 [History] Carvedilol [Coreg] 25 mg PO BID@0700,1900 08/26/21 [History] Guaifenesin/Dextromethorphan [Robitussin Cough-Chest Dm Liq] 20 ml PO DIRECTED PRN 08/26/21 [History] HYDROcodone/APAP 7.5-325MG [Bryan 7.5-325] 1 tab PO TID PRN 08/26/21 [History] Lansoprazole [Prevacid] 30 mg PO DAILY@0708/26/21 [History] Menthol [[place]] 7.5 mg MM DIRECTED PRN 08/26/21 [History] Spironolactone 25 mg PO DAILY@0708/26/21 [History] Zolpidem Tartrate [Ambien] 5 mg PO HS PRN 08/26/21 [History] Allergy Relief 50 mg PO BID@0700,1900 09/25/21 [History] Ascorbic Acid [Vitamin C] 500 mg PO DAILY@0709/25/21 [History] Benzonatate [Benzonatate Perle] 200 mg PO TID@0700,1400,1900 09/25/21 [History] Cholecalciferol [Vitamin D3 (25 Mcg = 1000 Iu)] 25 mcg PO DAILY@0709/25/21 [History] Colon Health Probiotic 1 cap PO DAILY@69909/25/21 [History] Ipratropium-Albuterol Nebulize [Duoneb 0.5 mg-3 mg/3 ml Soln] 3 ml INHALATION RT-QID 09/25/21 [History] Quercetin Bromelain Caps 2 cap PO DAILY@0709/25/21 [History] Zinc 50 mg PO DAILY@69909/25/21 [History] guaiFENesin [Mucinex] 1,200 mg PO Q12H PRN 09/25/21 [History] Apixaban [Eliquis Starter Pack (for VTE)] 5 - 10 mg PO DIRECTED 30 Days #1 each 09/26/21 [Rx] Budesonide-Formot 160-4.5 Mcg [Symbicort 160-4.5 Mcg Inhaler] 2 puff INHALATION RT-BID 30 Days #8 gm 09/27/21 [Rx] INSULIN ASPART (NovoLOG) [NovoLOG (formulary)] 30 unit SQ ACHS 30 Days #5 pen 09/27/21 [Rx] Insulin Detemir (Levemir) [Levemir] 10 unit SQ BID@0700,2100 30 Days #4 pen 09/27/21 [Rx] Ipratropium-Albuterol Nebulize [Duoneb 0.5 mg-3 mg/3 ml Soln] 3 ml INHALATION RT-Q4H PRN ml 09/27/21 [Rx] Levofloxacin [Levaquin] 250 mg PO Q24H 5 Days #5 tab 09/27/21 [Rx] predniSONE [Deltasone] 40 mg PO DAILY #24 tab 09/27/21 [Rx] Follow up Appointment(s)/Referral(s): Ying Pearson MD [Primary Care Provider] - 10/05/21 1:30 pm [facility], [NON-STAFF] - 1-2 Days [facility] [NON-STAFF] - 1-[address] [facility] [NON-STAFF] - As Needed (supplier of home ) Ambulatory/Diagnostic Orders: Basic Metabolic Panel [LAB.AMB] Time Frame: 3 Days, Location: None Selected Patient Instructions/Handouts: Heart Healthy Diet (DC) Activity/Diet/Wound Care/Special Instructions: Patient is returning to [facility] living Activity as tolerated Continue medications as prescribed Continue with prednisone taper as prescribed Recommend repeat labs of CBC and BMP in 2-3 days Follow-up with pulmonary outpatient Continue consistent carb heart healthy diet Blood sugars are elevated and will continue on sliding scale along with long acting and recommend to monitor blood sugars before meals and at bedtime and hold insulin if blood sugar is 120 or less Please use the sliding scale for coverage as prescription may appear different on the dosage NovoLog sliding scale 0-150 equals 0 units 151-200 equals 2 units 201-250 equals 4 units 251-300 equals 6 units 301-350 equals 8 units 351-400 equals 10 units Please notify provider if blood sugar is 400 or above Blood sugars will be expected to improve when steroids are completed Discharge Disposition: TRANSFER TO SNF/ECF
== END 2021-09-27 18:26 | DRG 190 ==
LOC: EC 12:26 → 6NMEDSUR 14:13 → 3SCARD 16:16 → 6NMEDSUR 16:27 → OBSVTOIN 09-26 11:32
PROVIDERS: ADMIT Internal Medicine; ATTEND Internal Medicine
DX: J44.1 Chronic obstructive pulmonary disease with (acute) exacerbation (principal); I26.99 Other pulmonary embolism without acute cor pulmonale; J96.21 Acute and chronic respiratory failure with hypoxia; J96.22 Acute and chronic respiratory failure with hypercapnia; I50.32 Chronic diastolic (congestive) heart failure; I11.0 Hypertensive heart disease with heart failure; D72.829 Elevated white blood cell count, unspecified; I25.10 Atherosclerotic heart disease of native coronary artery without angina pectoris; Z20.822 Contact with and (suspected) exposure to COVID-19; Z51.5 Encounter for palliative care; T38.0X5A Adverse effect of glucocorticoids and synthetic analogues, initial encounter; E03.9 Hypothyroidism, unspecified; E11.65 Type 2 diabetes mellitus with hyperglycemia; E78.5 Hyperlipidemia, unspecified; F32.A Depression, unspecified; F41.9 Anxiety disorder, unspecified; G47.33 Obstructive sleep apnea (adult) (pediatric); G89.29 Other chronic pain; I87.8 Other specified disorders of veins; K21.9 Gastro-esophageal reflux disease without esophagitis; J40 Bronchitis, not specified as acute or chronic; K57.90 Diverticulosis of intestine, part unspecified, without perforation or abscess without bleeding; M06.9 Rheumatoid arthritis, unspecified; J30.1 Allergic rhinitis due to pollen; J30.2 Other seasonal allergic rhinitis; M19.90 Unspecified osteoarthritis, unspecified site; Z79.01 Long term (current) use of anticoagulants; Z79.890 Hormone replacement therapy; Z79.899 Other long term (current) drug therapy; Z80.1 Family history of malignant neoplasm of trachea, bronchus and lung; Z82.49 Family history of ischemic heart disease and other diseases of the circulatory system; Z82.5 Family history of asthma and other chronic lower respiratory diseases; Z83.3 Family history of diabetes mellitus; Z85.820 Personal history of malignant melanoma of skin; Z86.711 Personal history of pulmonary embolism; Z87.891 Personal history of nicotine dependence; Z90.710 Acquired absence of both cervix and uterus; Z99.81 Dependence on supplemental oxygen; Z88.8 Allergy status to other drugs, medicaments and biological substances; Z88.5 Allergy status to narcotic agent; Z87.19 Personal history of other diseases of the digestive system; Z90.49 Acquired absence of other specified parts of digestive tract; Z88.4 Allergy status to anesthetic agent; Z91.018 Allergy to other foods; Z91.011 Allergy to milk products
CPT/HCPCS: 36415; 71046; 71275; 80048; 80053; 83036; 83605; 83735; 83880; 84484; 85025; 85027; 85610; 85730; 87635; 93005; 94640; 99285

== ENCOUNTER 2021-10-21 07:58 | Emergency (ER) | payer MEDICARE ==
[2021-10-21] MEDS ORDERED: HYDROmorphone 0.5 MG/0.5 ML SYRINGE IVP STA (08:16)
[2021-10-21] MEDS ORDERED: ONDANSETRON 4 MG/2 ML VIAL IVP STA (08:16)
[2021-10-21] MEDS ORDERED: IPRATROPIUM-ALBUTEROL 3 ML NEB INHALATION STA (08:21)
--- NOTE | 2021-10-21 08:42 | ED ---
Abdominal Pain HPI - General Chief Complaint: Abdominal Pain Stated Complaint: Abd pain Time Seen by Provider: 10/21/21 08:07 Source: patient, EMS, RN notes reviewed Mode of arrival: EMS - History of Present Illness Initial Comments: This 81-year-old female presents emergency Department chief complaint of left- sided abdominal pain. Patient does have a long history of abdominal issues. She has had prior cholecystectomy, hysterectomy, colon resection secondary to diverticulitis. Patient states pain started 3 days ago has been progressive. Patient states that she also had some increasing shortness of breath but states that she saw her field specialist a few days ago had an x-ray showing some atelectasis. Patient does have a history of lung issues. Patient denies vomiting she did have some nausea, no significant change in bowel habits denies melena, hematochezia, diarrhea or significant constipation. Patient does admit to fevers and chills. - Related Data Home Medications Medication Instructions Recorded Confirmed Levothyroxine Sodium [Synthroid] 125 mcg PO DAILY@0700 10/18/20 10/08/21 amLODIPine [Norvasc] 10 mg PO DAILY@0700 10/18/20 10/08/21 Sertraline [Zoloft] 50 mg PO HS@1900 06/03/21 09/25/21 cloNIDine HCL [Catapres] 0.3 mg PO BID@0700,1900 06/03/21 10/08/21 Docusate [Colace] 400 mg PO HS@1900 06/29/21 10/08/21 Furosemide [Lasix] 40 mg PO BID@0700,1900 06/29/21 10/08/21 Mirtazapine [Remeron] 15 mg PO HS@1900 06/29/21 10/08/21 Multivit-Min/Iron/Folic/Lutein 1 tab PO DAILY@0700 07/10/21 10/08/21 [Centrum Silver Women Tablet] Simvastatin 40 mg PO HS@1900 07/10/21 10/08/21 SILVER sulfADIAZINE Cream 1 applic TOPICAL BID@0700,1900 07/27/21 10/08/21 [Silvadene 1% Cream] Acetaminophen [Tylenol] 500 - 1,000 mg PO Q6H PRN 08/26/21 10/08/21 Black Elderberry 2000mg Capsule 4,000 mg PO BID@0700,1900 08/26/21 10/08/21 Calcium Carbonate [Tums] 1,000 - 2,000 mg PO DAILY PRN 08/26/21 10/08/21 Carvedilol [Coreg] 25 mg PO BID@0700,1900 08/26/21 10/08/21 Guaifenesin/Dextromethorphan 20 ml PO DIRECTED PRN 08/26/21 10/08/21 [Robitussin Cough-Chest Dm Liq] HYDROcodone/APAP 7.5-325MG [[place] 1 tab PO TID PRN 08/26/21 10/08/21 7.5-325] Lansoprazole [Prevacid] 30 mg PO DAILY@0700 08/26/21 10/08/21 Menthol [[place]] 7.5 mg MM DIRECTED PRN 08/26/21 10/08/21 Spironolactone 25 mg PO DAILY@0700 08/26/21 10/08/21 Zolpidem Tartrate [Ambien] 5 mg PO HS PRN 08/26/21 10/08/21 Allergy Relief 50 mg PO BID@0700,1900 09/25/21 10/08/21 Ascorbic Acid [Vitamin C] 500 mg PO DAILY@0709/25/21 10/08/21 Benzonatate [Benzonatate Perle] 200 mg PO TID@0700,1400,1900 09/25/21 09/25/21 Cholecalciferol [Vitamin D3 (25 25 mcg PO DAILY@0709/25/21 10/08/21 Mcg = 1000 Iu)] Colon Health Probiotic 1 cap PO DAILY@0700 09/25/21 10/08/21 Ipratropium-Albuterol Nebulize 3 ml INHALATION RT-QID 09/25/21 09/25/21 [Duoneb 0.5 mg-3 mg/3 ml Soln] Zinc 50 mg PO DAILY@0709/25/21 10/08/21 guaiFENesin [Mucinex] 1,200 mg PO Q12H PRN 09/25/21 09/25/21 hydrALAZINE HCL 25 mg PO BID@0700,1900 10/08/21 10/08/21 Previous Rx's Medication Instructions Recorded Apixaban [Eliquis Starter Pack 5 - 10 mg PO DIRECTED 30 Days 09/26/21 (for VTE)] #1 each Budesonide-Formot 160-4.5 Mcg 2 puff INHALATION RT-BID 30 Days 09/27/21 [Symbicort 160-4.5 Mcg Inhaler] #8 gm INSULIN ASPART (NovoLOG) [NovoLOG 30 unit SQ ACHS 30 Days #5 pen 09/27/21 (formulary)] Insulin Detemir (Levemir) [Levemir] 10 unit SQ BID@0700,2100 30 Days 09/27/21 #4 pen Ipratropium-Albuterol Nebulize 3 ml INHALATION RT-Q4H PRN ml 09/27/21 [Duoneb 0.5 mg-3 mg/3 ml Soln] Levofloxacin [Levaquin] 250 mg PO Q24H 5 Days #5 tab 09/27/21 predniSONE [Deltasone] 40 mg PO DAILY #24 tab 09/27/21 Amoxicillin/Potassium Clav 1 tab PO Q12HR #14 tab 10/21/21 [Augmentin 875-125 Tablet] Ondansetron Odt [Zofran Odt] 4 mg PO Q8HR PRN #10 tab 10/21/21 Allergies Allergy/AdvReac Type Severity Reaction Status Date / Time onion Allergy Unknown Verified 10/08/21 11:19 adhesive AdvReac SKIN Verified 10/08/21 11:19 REDDENS & BLISTERS- PAPER TAPE OKAY aspirin AdvReac STOMACH Verified 10/08/21 11:19 HERRERA azithromycin [From Zithromax] AdvReac Nausea & Verified 10/08/21 11:19 Vomiting lactose AdvReac Nausea Verified 10/08/21 11:19 meperidine HCl [From Demerol] AdvReac Nausea & Verified 10/08/21 11:19 Vomiting morphine AdvReac Nausea & Verified 10/08/21 11:19 Vomiting Sulfa (Sulfonamide AdvReac Nausea & Verified 10/08/21 11:19 Antibiotics) Vomiting tree and shrub pollen AdvReac Cough Verified 10/08/21 11:19 anesthesia Allergy facial/arms/hands Uncoded 09/25/21 12:36 swelling,skin"turns beet red", nausea DISSOLVING SUTURES AdvReac INFECTION Uncoded 02/21/22 11:19 Review of Systems ROS Statement: Those systems with pertinent positive or pertinent negative responses have been documented in the HPI. ROS Other: All systems not noted in ROS Statement are negative. Past Medical History Past Medical History: Asthma, Cancer, Heart Failure, COPD, GERD/Reflux, Hyperlipidemia, Hypertension, Osteoarthritis (OA), Pneumonia, Pulmonary Embolus (PE), Rheumatoid Arthritis (RA), Sleep Apnea/CPAP/BIPAP, Thyroid Disorder Additional Past Medical History / Comment(s): COPD/asthma, chronic cough, hypothyroidism, history of basal cell carcinoma of the skin resected, history of melanoma of the skin involving the back, resected, history of diverticulosis/diverticulitis, history of fibrocystic disease, obstructive sleep apnea can sleep with the CPAP, varicose veins in lower extremities, hyp othyroidism, covid 3-4 weeks ago. History of Any Multi-Drug Resistant Organisms: None Reported Past Surgical History: Bladder Surgery, Bowel Resection, Cholecystectomy, Heart Catheterization, Hernia Repair, Hysterectomy, Joint Replacement, Orthopedic Surgery Additional Past Surgical History / Comment(s): LEFT KNEE REPLACED, PARTIAL THYROIDECTOMY,HIATAL HERNIA REPAIR 07/2013, ABDOMINAL HERNIA REPAIR,MULTIPLE SKIN LESIONS-PT STATED HAS HAS BASAL,SQUAMOUS AND MELANOMA SKIN CA ( NECK,RT UPPER & LOWER THIGH,LT ARM,RT ARM, face, back-melanoma)SKIN GRAFTS TO VINOD.LEGS- LT EAR-LT MIDDLE FINGER,ACHILLES TENDON surgery. RT OVARY 1 TUBE REMOVED, SIGMOID RESECTION D/T BOWEL OBSTRUCTION,RT LITLE FINGER AMP, Past Anesthesia/Blood Transfusion Reactions: Previous Problems w/ Anesthesia, Motion Sickness, Postoperative Nausea & Vomiting (PONV) Additional Past Anesthesia/Blood Transfusion Reaction / Comment(s): STATES "HAS HAD SWELLING TO FACE,HANDS,ARMS AND SKIN TURNS "BEET RED"WITH ANESTHESIA-with IV sedation. states no problems with last surgery at [facility] 01/2017-anesthesia re cords on chart Past Psychological History: Anxiety Smoking Status: Former smoker Past Alcohol Use History: None Reported Past Drug Use History: None Reported - Past Family History Mother Family Medical History: Diabetes Mellitus Additional Family Medical History / Comment(s): HEART PROBLEMS Sister(s) Family Medical History: Diabetes Mellitus, Myocardial Infarction (MD) Additional Family Medical History / Comment(s): EMPHYSEMA Father Family Medical History: Cancer Additional Family Medical History / Comment(s): LUNG CA. General Exam Limitations: no limitations General appearance: alert, in no apparent distress Head exam: Present: atraumatic, normocephalic, normal inspection Eye exam: Present: normal appearance, PERRL, EOMI. Absent: scleral icterus, conjunctival injection, periorbital swelling ENT exam: Present: normal exam, normal oropharynx, mucous membranes moist Neck exam: Present: normal inspection, full ROM. Absent: tenderness, meningismus, lymphadenopathy Respiratory exam: Present: wheezes. Absent: normal lung sounds bilaterally, respiratory distress, rales, rhonchi, stridor Cardiovascular Exam: Present: regular rate, normal rhythm, normal heart sounds. Absent: systolic murmur, diastolic murmur, rubs, gallop, clicks GI/Abdominal exam: Present: soft, tenderness (Left upper and lower quadrant moderate), normal bowel sounds. Absent: distended, guarding, rebound, rigid Back exam: Absent: CVA tenderness (R), CVA tenderness (L) Neurological exam: Present: alert Skin exam: Present: warm, dry, intact, normal color. Absent: rash Course Vital Signs 10/21/21 08:03 Temperature 98.1 F Pulse Rate 73 Respiratory 16 Rate Blood Pressure 176/88 O2 Sat by Pulse 93 L Oximetry Medical Decision Making - Medical Decision Making Chest x-rays unremarkable, CT does not reveal any significant findings patient does have a long history of diverticulitis, patient does have evidence of urinary tract infection. She states she does have greatly improved patient will be discharged on Augmentin, Zofran return parameters were discussed. - Lab Data Result diagrams: 10/21/21 08:28 10/21/21 08:28 Lab Results 10/21/21 10/21/21 10/21/21 Range/Units 08:28 08:28 08:28 WBC 8.4 (3.8-10.6) k/uL RBC 4.10 (3.80-5.40) m/uL Hgb 12.3 (11.4-16.0) gm/dL Hct 38.0 (34.0-46.0) % MCV 92.6 (80.0-100.0) fL MCH 29.9 (25.0-35.0) pg MCHC 32.3 (31.0-37.0) g/dL RDW 15.4 (11.5-15.5) % Plt Count 296 (150-450) k/uL MPV 7.5 Neutrophils % 72 % Lymphocytes % 19 % Monocytes % 5 % Eosinophils % 2 % Basophils % 1 % Neutrophils # 6.0 (1.3-7.7) k/uL Lymphocytes # 1.6 (1.0-4.8) k/uL Monocytes # 0.4 (0-1.0) k/uL Eosinophils # 0.2 (0-0.7) k/uL Basophils # 0.1 (0-0.2) k/uL Sodium 138 (137-145) mmol/L Potassium 4.0 (3.5-5.1) mmol/L Chloride 95 L (98-107) mmol/L Carbon Dioxide 37 H (22-30) mmol/L Anion Gap 6 mmol/L BUN 13 (7-17) mg/dL Creatinine 0.97 (0.52-1.04) mg/dL Est GFR (CKD-EPI)AfAm 63 (>60 ml/min/1.73 sqM) Est GFR (CKD-EPI)NonAf 55 (>60 ml/min/1.73 sqM) Glucose 199 H (74-99) mg/dL Plasma Lactic Acid Tyron (0.7-2.0) mmol/L Calcium 8.9 (8.4-10.2) mg/dL Total Bilirubin 0.5 (0.2-1.3) mg/dL AST 16 (14-36) U/L ALT 11 (4-34) U/L Alkaline Phosphatase 114 (38-126) U/L Total Protein 6.5 (6.3-8.2) g/dL Albumin 3.8 (3.5-5.0) g/dL Amylase 38 (30-110) U/L Lipase 45 (23-300) U/L Urine Color Yellow Urine Appearance Clear (Clear) Urine pH 6.0 (5.0-8.0) Ur Specific [place] 1.015 (1.001-1.035) Urine Protein Negative (Negative) Urine Glucose (UA) Negative (Negative) Urine Ketones Negative (Negative) Urine Blood Negative (Negative) Urine Nitrite Negative (Negative) Urine Bilirubin Negative (Negative) Urine Urobilinogen <2.0 (<2.0) mg/dL Ur Leukocyte Esterase Large H (Negative) Urine RBC 2 (0-5) /hpf Urine WBC 30 H (0-5) /hpf Ur Squamous Epith Cells 7 H (0-4) /hpf Urine Bacteria Rare H (None) /hpf Hyaline Casts 23 H (0-2) /lpf Urine Mucus Rare H (None) /hpf 10/21/21 Range/Units 08:28 WBC (3.8-10.6) k/uL RBC (3.80-5.40) m/uL Hgb (11.4-16.0) gm/dL Hct (34.0-46.0) % MCV (80.0-100.0) fL MCH (25.0-35.0) pg MCHC (31.0-37.0) g/dL RDW (11.5-15.5) % Plt Count (150-450) k/uL MPV Neutrophils % % Lymphocytes % % Monocytes % % Eosinophils % % Basophils % % Neutrophils # (1.3-7.7) k/uL Lymphocytes # (1.0-4.8) k/uL Monocytes # (0-1.0) k/uL Eosinophils # (0-0.7) k/uL Basophils # (0-0.2) k/uL Sodium (137-145) mmol/L Potassium (3.5-5.1) mmol/L Chloride (98-107) mmol/L Carbon Dioxide (22-30) mmol/L Anion Gap mmol/L BUN (7-17) mg/dL Creatinine (0.52-1.04) mg/dL Est GFR (CKD-EPI)AfAm (>60 ml/min/1.73 sqM) Est GFR (CKD-EPI)NonAf (>60 ml/min/1.73 sqM) Glucose (74-99) mg/dL Plasma Lactic Acid Tyron 1.6 (0.7-2.0) mmol/L Calcium (8.4-10.2) mg/dL Total Bilirubin (0.2-1.3) mg/dL AST (14-36) U/L ALT (4-34) U/L Alkaline Phosphatase (38-126) U/L Total Protein (6.3-8.2) g/dL Albumin (3.5-5.0) g/dL Amylase (30-110) U/L Lipase (23-300) U/L Urine Color Urine Appearance (Clear) Urine pH (5.0-8.0) Ur Specific [place] (1.001-1.035) Urine Protein (Negative) Urine Glucose (UA) (Negative) Urine Ketones (Negative) Urine Blood (Negative) Urine Nitrite (Negative) Urine Bilirubin (Negative) Urine Urobilinogen (<2.0) mg/dL Ur Leukocyte Esterase (Negative) Urine RBC (0-5) /hpf Urine WBC (0-5) /hpf Ur Squamous Epith Cells (0-4) /hpf Urine Bacteria (None) /hpf Hyaline Casts (0-2) /lpf Urine Mucus (None) /hpf Disposition Clinical Impression: UTI (urinary tract infection), Diverticulosis Disposition: HOME SELF-CARE Condition: Stable Instructions (If sedation given, give patient instructions): Urinary Tract Infection in Women (ED) Additional Instructions: Please return to the Emergency Department if symptoms worsen or any other concerns. Prescriptions: Amoxicillin/Potassium Clav [Augmentin 875-125 Tablet] 1 tab PO Q12HR #14 tab Ondansetron Odt [Zofran Odt] 4 mg PO Q8HR PRN #10 tab PRN Reason: Nausea Is patient prescribed a controlled substance at d/c from ED?: No Referrals: Ying Pearson MD [Primary Care Provider] - 1-2 days Time of Disposition: 10:21
[2021-10-21 08:43] LABS: Basophils # (A) 0.1 k/uL (0-0.2); Basophils % (A) 1 %; Eosinophils # (A) 0.2 k/uL (0-0.7); Eosinophils % (A) 2 %; HGB 12.3 gm/dL (11.4-16.0); Lymphocytes # (A) 1.6 k/uL (1.0-4.8); Lymphocytes % (A) 19 %; MCH 29.9 pg (25.0-35.0); MCHC 32.3 g/dL (31.0-37.0); MCV 92.6 fL (80.0-100.0); Mean Platelet Volume 7.5; Monocytes # (A) 0.4 k/uL (0-1.0); Monocytes % (A) 5 %; Neutrophils % (A) 72 %; Platelet Count 296 k/uL (150-450); RDW 15.4 % (11.5-15.5); WBC 8.4 k/uL (3.8-10.6)
[2021-10-21 08:58] LABS: Albumin 3.8 g/dL (3.5-5.0); Calcium 8.9 mg/dL (8.4-10.2); Total Bilirubin 0.5 mg/dL (0.2-1.3); Total Protein 6.5 g/dL (6.3-8.2)
[2021-10-21 09:06] LABS: Appearance,Urine Clear (Clear); Bacteria,Urine Rare /hpf; Bilirubin,Urine Negative (Negative); Blood,Urine Negative (Negative); Color,Urine Yellow; Glucose,Urine (UA) Negative (Negative); Hyaline Casts,Urine 23 /lpf (0-2); Ketones,Urine Negative (Negative); Leukocyte Esterase,Urine Large (Negative); Mucus,Urine Rare /hpf; Nitrite,Urine Negative (Negative); Protein,Urine Negative (Negative); RBC,Urine 2 /hpf (0-5); Specific Gravity,Urine 1.015 (1.001-1.035); Squamous Epithelial Cell,Urine 7 /hpf (0-4); Urobilinogen,Urine <2.0 mg/dL (<2.0); WBC,Urine 30 /hpf (0-5)
--- NOTE | 2021-10-21 09:38 | CT ---
EXAMINATION TYPE: CT abdomen pelvis w con DATE OF EXAM: 10/21/2021 COMPARISON: 10/08/2021 HISTORY: Pain CONTRAST: CT scan of the abdomen and pelvis is performed without Oral Contrast and with IV Contrast, patient in jected with 100 mL of Isovue 300. FINDINGS: LUNG BASES-: No visible nodule. No infiltrate. Small sliding-type hiatal hernia. LIVER/GB: The gallbladder surgically absent. No space occupying hepatic lesion. Biliary tree is of no rmal caliber. PANCREAS: No inflammation. No distinct mass. SPLEEN: No splenic enlargement. No lesion seen. ADRENALS: No nodule. No thickening. KIDNEYS/BLADDER: No hydronephrosis. No nephrolithiasis. No distinct renal mass. Urinary bladder g rossly unremarkable. BOWEL: Normal appendix. Normal bowel caliber. No inflammation. Sigmoid diverticulosis without diver ticulitis. Sigmoid resection within normal limits. Moderate fecal stasis. GENITAL ORGANS: No gross abnormality. LYMPH NODES: No greater than 1cm abdominal or pelvic lymph nodes are appreciated. AORTA: No significant abnormality. OSSEOUS STRUCTURES: No significant abnormality is seen. OTHER: No significant additional abnormality is seen. IMPRESSION: 1. No acute process seen.
--- NOTE | 2021-10-21 09:39 | XR ---
EXAMINATION TYPE: XR chest 2V DATE OF EXAM: 10/21/2021 COMPARISON: September 25, 2021 HISTORY: Shortness of breath TECHNIQUE: Frontal and lateral views of the chest are obtained. FINDINGS: Scattered senescent parenchymal changes noted. Hyperinflation compatible with COPD. No evidence for infiltrate. Discoid atelectasis right infrahilar region. Heart size is stable. Mediastinal structures are stable and grossly unremarkable. No evidence for hilar prominence. Degenerative changes dorsal spine. IMPRESSION: 1. No evidence for acute pulmonary disease.
[2021-10-21] MEDS ORDERED: METOCLOPRAMIDE 5 MG/ML 2 ML VIAL IVP STA (10:19)
[2021-10-21] MEDS ORDERED: cefTRIAXone IN SWFI 1,000 MG/10 ML SYRINGE IVP STA (10:19)
[2021-10-21] MEDS ORDERED: ONDANSETRON 4 MG ODT STARTER PACK 2 TAB BTL PO STA (10:21)
[2021-10-21 11:04] VITALS: BP 160/90; PULSE 76; RESP 20; TEMP 97.1
== END 2021-10-21 11:48 | disposition home or self-care (01) ==
LOC: EC 07:58
DX: K57.32 Diverticulitis of large intestine without perforation or abscess without bleeding (principal); N39.0 Urinary tract infection, site not specified; I11.0 Hypertensive heart disease with heart failure; I50.9 Heart failure, unspecified; J44.9 Chronic obstructive pulmonary disease, unspecified; E78.5 Hyperlipidemia, unspecified; K21.9 Gastro-esophageal reflux disease without esophagitis; M06.9 Rheumatoid arthritis, unspecified; E03.9 Hypothyroidism, unspecified; F41.9 Anxiety disorder, unspecified; Z87.891 Personal history of nicotine dependence; Z90.49 Acquired absence of other specified parts of digestive tract; Z79.890 Hormone replacement therapy; Z79.01 Long term (current) use of anticoagulants; Z79.4 Long term (current) use of insulin; Z79.899 Other long term (current) drug therapy
CPT/HCPCS: 36415; 94640; 80053; 82150; 83605; 83690; 85025; 81001; 87086; 71046; 74177; 99284; 96374; 96375 ×3; J2765; J2405; J0696; S0119; J1170; Q9967

== ENCOUNTER 2021-10-25 19:20 | Inpatient (IN) | payer MEDICARE ==
[2021-10-25] MEDS ORDERED: IPRATROPIUM-ALBUTEROL 3 ML NEB INHALATION STA (20:00)
[2021-10-25] MEDS ORDERED: METOCLOPRAMIDE 5 MG/ML 2 ML VIAL IVP STA (20:05)
[2021-10-25] MEDS ORDERED: diphenhydrAMINE 50 MG/ML 1 ML VIAL IVP STA (20:05)
--- NOTE | 2021-10-25 20:11 | XR ---
EXAMINATION TYPE: XR chest 2V DATE OF EXAM: 10/25/2021 COMPARISON: 10/21/2021 HISTORY: Shortness of breath TECHNIQUE: Frontal and lateral views of the chest are obtained. FINDINGS: There is persistent mild bibasilar hazy and streaky opacities. No significant pleural effu briana, or pneumothorax seen. Stable cardiomediastinal silhouette. The osseous structures are intact. IMPRESSION: Mild bibasilar opacities, probably atelectasis.
[2021-10-25 20:40] LABS: Basophils % (A) 0 %; Eosinophils # (A) 0.2 k/uL (0-0.7); Eosinophils % (A) 2 %; HCT 40.3 % (34.0-46.0); Lymphocytes # (A) 1.3 k/uL (1.0-4.8); Lymphocytes % (A) 12 %; MCH 29.5 pg (25.0-35.0); MCHC 32.4 g/dL (31.0-37.0); MCV 91.2 fL (80.0-100.0); Mean Platelet Volume 7.2; Monocytes # (A) 0.4 k/uL (0-1.0); Monocytes % (A) 4 %; Neutrophils # (A) 8.1 k/uL (1.3-7.7); Neutrophils % (A) 80 %; Platelet Count 318 k/uL (150-450); RBC 4.42 m/uL (3.80-5.40); RDW 15.6 % (11.5-15.5); WBC 10.2 k/uL (3.8-10.6)
[2021-10-25 20:54] LABS: Partial Thromboplastin Time 26.5 sec (22.0-30.0)
[2021-10-25 21:15] LABS: ALT 11 U/L (4-34); AST 20 U/L (14-36); African American GFR (CKD) 55 (>60 ml/min/1.73 sqM); Albumin 3.9 g/dL (3.5-5.0); Alkaline Phosphatase 118 U/L (38-126); Anion Gap 11 mmol/L; Blood Urea Nitrogen 15 mg/dL (7-17); Calcium 9.1 mg/dL (8.4-10.2); Carbon Dioxide 34 mmol/L (22-30); Chloride 90 mmol/L (98-107); Glucose 189 mg/dL (74-99); Non-African American GFR(CKD) 48 (>60 ml/min/1.73 sqM); Potassium 4.1 mmol/L (3.5-5.1); Sodium 135 mmol/L (137-145); Total Bilirubin 0.5 mg/dL (0.2-1.3); Total Protein 6.5 g/dL (6.3-8.2)
[2021-10-25] MEDS ORDERED: GENTAMICIN PER PHARMACY MISCELLANE SCH (22:45)
[2021-10-25] MEDS ORDERED: SODIUM CHLORIDE 0.9% IVPB ONE (23:00)
[2021-10-25] MEDS ORDERED: GENTAMICIN IVPB ONE (23:00)
[2021-10-25] MEDS ORDERED: HYDROcodone/APAP 7.5-325MG 1 EACH TAB PO ONE (23:48)
[2021-10-25] MEDS ORDERED: NALOXONE 0.4 MG/ML 1 ML VIAL IV PRN (23:49)
--- NOTE | 2021-10-25 23:49 | ED ---
General Adult HPI - General Chief complaint: Nausea/Vomiting/Diarrhea Stated complaint: Nausea Source: patient, EMS Mode of arrival: EMS Limitations: no limitations - History of Present Illness Initial comments: 81-year-old female with multiple medical conditions presents emergency Department with nausea and vomiting. States that she was seen in the emergency department several days ago. She is diagnosed with the UTI. They did call her in a prescription for Zyvox. She took a dose last night and this morning. Both times the patient had extreme nausea and vomiting. Believes that she is unable to tolerate the medications. Her urinalysis did demonstrate that the UTI was resistant to most other organisms. Patient arrives and does have some shortness of breath. States that she has chronic shortness of breath and requires oxygen. She denies any fevers or cough. Patient does not have any medications at home to take for her nausea. No other alleviating, precipitating mopping factors - Related Data Home Medications Medication Instructions Recorded Confirmed Levothyroxine Sodium [Synthroid] 125 mcg PO DAILY@0700 10/18/20 10/25/21 amLODIPine [Norvasc] 10 mg PO DAILY@0700 10/18/20 10/25/21 Sertraline [Zoloft] 50 mg PO HS@1900 06/03/21 10/25/21 cloNIDine HCL [Catapres] 0.3 mg PO BID@07,189906/03/21 10/25/21 Docusate [Colace] 400 mg PO HS@1900 06/29/21 10/25/21 Furosemide [Lasix] 40 mg PO BID@0700,19006/29/21 10/25/21 Mirtazapine [Remeron] 15 mg PO HS@1900 06/29/21 10/25/21 Multivit-Min/Iron/Folic/Lutein 1 tab PO DAILY@0700 07/10/21 10/25/21 [Centrum Silver Women Tablet] Simvastatin 40 mg PO HS@1900 07/10/21 10/25/21 SILVER sulfADIAZINE Cream 1 applic TOPICAL BID@0700,19007/27/21 10/25/21 [Silvadene 1% Cream] Acetaminophen [Tylenol] 500 - 1,000 mg PO Q6H PRN 08/26/21 10/25/21 Black Elderberry 2000mg Capsule 4,000 mg PO BID@0700,1900 08/26/21 10/25/21 Calcium Carbonate [Tums] 1,000 - 2,000 mg PO DAILY PRN 08/26/21 10/25/21 Carvedilol [Coreg] 25 mg PO BID@0700,189908/26/21 10/25/21 Guaifenesin/Dextromethorphan 20 ml PO DIRECTED PRN 08/26/21 10/25/21 [Robitussin Cough-Chest Dm Liq] HYDROcodone/APAP 7.5-325MG [[place] 1 tab PO Q6H PRN 08/26/21 10/25/21 7.5-325] Lansoprazole [Prevacid] 30 mg PO DAILY@69908/26/21 10/25/21 Spironolactone 25 mg PO DAILY@69908/26/21 10/25/21 Zolpidem Tartrate [Ambien] 5 mg PO HS PRN 08/26/21 10/25/21 Allergy Relief 50 mg PO BID@07,189909/25/21 10/25/21 Ascorbic Acid [Vitamin C] 500 mg PO DAILY@69909/25/21 10/25/21 Cholecalciferol [Vitamin D3 (25 25 mcg PO DAILY@69909/25/21 10/25/21 Mcg = 1000 Iu)] Colon Health Probiotic 1 cap PO DAILY@69909/25/21 10/25/21 Ipratropium-Albuterol Nebulize 3 ml INHALATION RT-QID 09/25/21 10/25/21 [Duoneb 0.5 mg-3 mg/3 ml Soln] Zinc 50 mg PO DAILY@69909/25/21 10/25/21 guaiFENesin [Mucinex] 1,200 mg PO Q12H PRN 09/25/21 10/25/21 Apixaban [Eliquis] 5 mg PO BID 10/25/21 10/25/21 Levofloxacin [Levaquin] 500 mg PO DAILY@79910/25/21 10/25/21 Menthol [Hammond] 7.5 mg MM DIRECTED PRN 10/25/21 10/25/21 Ondansetron Odt [Zofran Odt] 4 mg PO TID@0800,1600,2000 10/25/21 10/25/21 Ondansetron [Zofran] 4 mg PO Q8HR PRN 10/25/21 10/25/21 Quercetin Bromelain Caps 2 capsule PO DAILY@0700 10/25/21 10/25/21 Previous Rx's Medication Instructions Recorded Budesonide-Formot 160-4.5 Mcg 2 puff INHALATION RT-BID 30 Days 09/27/21 [Symbicort 160-4.5 Mcg Inhaler] #8 gm Allergies Allergy/AdvReac Type Severity Reaction Status Date / Time onion Allergy Unknown Verified 10/25/21 21:54 adhesive AdvReac SKIN Verified 10/25/21 21:54 REDDENS & BLISTERS- PAPER TAPE OKAY aspirin AdvReac STOMACH Verified 10/25/21 21:54 HERRERA azithromycin [From Zithromax] AdvReac Nausea & Verified 10/25/21 21:54 Vomiting lactose AdvReac Nausea Verified 10/25/21 21:54 meperidine HCl [From Demerol] AdvReac Nausea & Verified 10/25/21 21:54 Vomiting morphine AdvReac Nausea & Verified 10/25/21 21:54 Vomiting Sulfa (Sulfonamide AdvReac Nausea & Verified 10/25/21 21:54 Antibiotics) Vomiting tree and shrub pollen AdvReac Cough Verified 10/25/21 21:54 anesthesia Allergy facial/arms/hands Uncoded 10/25/21 21:54 swelling,skin"turns beet red", nausea DISSOLVING SUTURES AdvReac INFECTION Uncoded 10/25/21 19:35 Review of Systems ROS Statement: Those systems with pertinent positive or pertinent negative responses have been documented in the HPI. ROS Other: All systems not noted in ROS Statement are negative. Past Medical History Past Medical History: Asthma, Cancer, Heart Failure, COPD, GERD/Reflux, Hyperlipidemia, Hypertension, Osteoarthritis (OA), Pneumonia, Pulmonary Embolus (PE), Rheumatoid Arthritis (RA), Sleep Apnea/CPAP/BIPAP, Thyroid Disorder Additional Past Medical History / Comment(s): COPD/asthma, chronic cough, hypothyroidism, history of basal cell carcinoma of the skin resected, history of melanoma of the skin involving the back, resected, history of diverticulosis/diverticulitis, history of fibrocystic disease, obstructive sleep apnea can sleep with the CPAP, varicose veins in lower extremities, hypothyroidism, covid 3-4 weeks ago. History of Any Multi-Drug Resistant Organisms: None Reported Past Surgical History: Bladder Surgery, Bowel Resection, Cholecystectomy, Heart Catheterization, Hernia Repair, Hysterectomy, Joint Replacement, Orthopedic Surgery Additional Past Surgical History / Comment(s): LEFT KNEE REPLACED, PARTIAL THYROIDECTOMY,HIATAL HERNIA REPAIR 07/2013, ABDOMINAL HERNIA REPAIR,MULTIPLE SKIN LESIONS-PT STATED HAS HAS BASAL,SQUAMOUS AND MELANOMA SKIN CA ( NECK,RT UPPER & LOWER THIGH,LT ARM,RT ARM, face, back-melanoma)SKIN GRAFTS TO VINOD.LEGS- LT EAR-LT MIDDLE FINGER,ACHILLES TENDON surgery. RT OVARY 1 TUBE REMOVED, SIGMOID RESECTION D/T BOWEL OBSTRUCTION,RT LITLE FINGER AMP, Past Anesthesia/Blood Transfusion Reactions: Previous Problems w/ Anesthesia, Motion Sickness, Postoperative Nausea & Vomiting (PONV) Additional Past Anesthesia/Blood Transfusion Reaction / Comment(s): STATES "HAS HAD SWELLING TO FACE,HANDS,ARMS AND SKIN TURNS "BEET RED"WITH ANESTHESIA-with IV sedation. states no problems with last surgery at [facility] 01/2017-anesthesia records on chart Past Psychological History: Anxiety Smoking Status: Former smoker Past Alcohol Use History: None Reported Past Drug Use History: None Reported - Past Family History Mother Family Medical History: Diabetes Mellitus Additional Family Medical History / Comment(s): HEART PROBLEMS Sister(s) Family Medical History: Diabetes Mellitus, Myocardial Infarction (MT) Additional Family Medical History / Comment(s): EMPHYSEMA Father Family Medical History: Cancer Additional Family Medical History / Comment(s): LUNG CA. General Exam Limitations: no limitations Course Vital Signs 10/25/21 10/25/21 10/25/21 19:30 20:34 20:35 Temperature 98.2 F Pulse Rate 106 H 82 86 Respiratory 25 H 16 Rate Blood Pressure 222/111 150/78 O2 Sat by Pulse 93 L 95 Oximetry 10/25/21 10/25/21 20:40 22:00 Temperature Pulse Rate 83 86 Respiratory 18 Rate Blood Pressure 144/80 O2 Sat by Pulse 95 Oximetry EKG Findings - EKG Comments: EKG Findings:: EKG demonstrates sinus rhythm with a rate of 86. CO interval 168. QRS 109. QTC 417. No acute ST segment elevations or depressions Medical Decision Making - Medical Decision Making Upon arrival patient was placed into room 23. She does arrive extremely hypertensive, tachypneic with a low pulse ox. IV access is established and laboratory studies were conducted. DuoNeb treatment is administered to the patient. Laboratory studies are reviewed. Chest x-ray is obtained which demonstrates mild bibasilar opacities. Patient does have improvement in her blood pressure without any medication provided. She does maintain saturations of 93-95% on her 5 L. I did review the patient's urine specimen which was completed on the sixth. Patient was positive for enterococcus with minimal susceptibility. Blood cultures obtained and the patient is given a dose of gentamicin. Did recommend admission for IV antibiotics and infectious disease c onsult. Patient agreed to this and was admitted to the floor in stable condition - Lab Data Result diagrams: 10/25/21 20:31 10/25/21 20:31 Lab Results 10/25/21 10/25/21 10/25/21 Range/Units 20:31 20:31 20:31 WBC 10.2 (3.8-10.6) k/uL RBC 4.42 (3.80-5.40) m/uL Hgb 13.0 (11.4-16.0) gm/dL Hct 40.3 (34.0-46.0) % MCV 91.2 (80.0-100.0) fL MCH 29.5 (25.0-35.0) pg MCHC 32.4 (31.0-37.0) g/dL RDW 15.6 H (11.5-15.5) % Plt Count 318 (150-450) k/uL MPV 7.2 Neutrophils % 80 % Lymphocytes % 12 % Monocytes % 4 % Eosinophils % 2 % Basophils % 0 % Neutrophils # 8.1 H (1.3-7.7) k/uL Lymphocytes # 1.3 (1.0-4.8) k/uL Monocytes # 0.4 (0-1.0) k/uL Eosinophils # 0.2 (0-0.7) k/uL Basophils # 0.0 (0-0.2) k/uL PT 11.0 (9.0-12.0) sec INR 1.0 (<1.2) APTT 26.5 (22.0-30.0) sec Sodium 135 L (137-145) mmol/L Potassium 4.1 (3.5-5.1) mmol/L Chloride 90 L (98-107) mmol/L Carbon Dioxide 34 H (22-30) mmol/L Anion Gap 11 mmol/L BUN 15 (7-17) mg/dL Creatinine 1.08 H (0.52-1.04) mg/dL Est GFR (CKD-EPI)AfAm 55 (>60 ml/min/1.73 sqM) Est GFR (CKD-EPI)NonAf 48 (>60 ml/min/1.73 sqM) Glucose 189 H (74-99) mg/dL Plasma Lactic Acid Tyron (0.7-2.0) mmol/L Calcium 9.1 (8.4-10.2) mg/dL Magnesium 2.0 (1.6-2.3) mg/dL Total Bilirubin 0.5 (0.2-1.3) mg/dL AST 20 (14-36) U/L ALT 11 (4-34) U/L Alkaline Phosphatase 118 (38-126) U/L Troponin I (0.000-0.034) ng/mL NT-Pro-B Natriuret Pep pg/mL Total Protein 6.5 (6.3-8.2) g/dL Albumin 3.9 (3.5-5.0) g/dL TSH 5.180 H (0.465-4.680) mIU/L Free T4 1.20 (0.78-2.19) ng/dL 10/25/21 10/25/21 10/25/21 Range/Units 20:31 20:31 20:31 WBC (3.8-10.6) k/uL RBC (3.80-5.40) m/uL Hgb (11.4-16.0) gm/dL Hct (34.0-46.0) % MCV (80.0-100.0) fL MCH (25.0-35.0) pg MCHC (31.0-37.0) g/dL RDW (11.5-15.5) % Plt Count (150-450) k/uL MPV Neutrophils % % Lymphocytes % % Monocytes % % Eosinophils % % Basophils % % Neutrophils # (1.3-7.7) k/uL Lymphocytes # (1.0-4.8) k/uL Monocytes # (0-1.0) k/uL Eosinophils # (0-0.7) k/uL Basophils # (0-0.2) k/uL PT (9.0-12.0) sec INR (<1.2) APTT (22.0-30.0) sec Sodium (137-145) mmol/L Potassium (3.5-5.1) mmol/L Chloride (98-107) mmol/L Carbon Dioxide (22-30) mmol/L Anion Gap mmol/L BUN (7-17) mg/dL Creatinine (0.52-1.04) mg/dL Est GFR (CKD-EPI)AfAm (>60 ml/min/1.73 sqM) Est GFR (CKD-EPI)NonAf (>60 ml/min/1.73 sqM) Glucose (74-99) mg/dL Plasma Lactic Acid Tyron 1.3 (0.7-2.0) mmol/L Calcium (8.4-10.2) mg/dL Magnesium (1.6-2.3) mg/dL Total Bilirubin (0.2-1.3) mg/dL AST (14-36) U/L ALT (4-34) U/L Alkaline Phosphatase (38-126) U/L Troponin I <0.012 (0.000-0.034) ng/mL NT-Pro-B Natriuret Pep 308 pg/mL Total Protein (6.3-8.2) g/dL Albumin (3.5-5.0) g/dL TSH (0.465-4.680) mIU/L Free T4 (0.78-2.19) ng/dL Disposition Clinical Impression: UTI (urinary tract infection), Nausea & vomiting Disposition: ADMITTED IP TO THIS [facility] Condition: Stable Is patient prescribed a controlled substance at d/c from ED?: No Decision to Admit Reason: Admit from EC Decision Date: 10/25/21 Decision Time: 23:49
[2021-10-26] MEDS: ONDANSETRON 4 MG TAB PO PRN (05:31)
[2021-10-26] MEDS: LEVOTHYROXINE 125 MCG TAB PO SCH (05:31)
[2021-10-26 06:21] LABS: Basophils # (A) 0.1 k/uL (0-0.2); Basophils % (A) 1 %; Eosinophils # (A) 0.2 k/uL (0-0.7); Eosinophils % (A) 2 %; HCT 37.2 % (34.0-46.0); HGB 11.9 gm/dL (11.4-16.0); Hypochromasia Slight; Lymphocytes # (A) 1.9 k/uL (1.0-4.8); Lymphocytes % (A) 20 %; MCH 29.7 pg (25.0-35.0); MCV 92.8 fL (80.0-100.0); Mean Platelet Volume 7.3; Monocytes # (A) 0.5 k/uL (0-1.0); Monocytes % (A) 5 %; Neutrophils # (A) 6.9 k/uL (1.3-7.7); Neutrophils % (A) 72 %; Platelet Count 276 k/uL (150-450); RBC 4.01 m/uL (3.80-5.40); RDW 15.3 % (11.5-15.5); WBC 9.7 k/uL (3.8-10.6)
[2021-10-26] MEDS ORDERED: [UNRECOGNIZED DRUG - REMARK] PO SCH (07:00)
[2021-10-26 07:09] LABS: Potassium 4.2 mmol/L (3.5-5.1)
[2021-10-26] MEDS: FUROSEMIDE 40 MG TAB PO SCH ×2 (08:30→17:12)
[2021-10-26] MEDS: carvediloL 12.5 MG TAB PO SCH ×2 (08:30→23:13)
[2021-10-26] MEDS: ZINC SULFATE 220 MG CAP PO SCH (08:30)
[2021-10-26] MEDS: MULTIVITAMINS, THERA 1 EACH TAB PO SCH (08:30)
[2021-10-26] MEDS: SPIRONOLACTONE 25 MG TAB PO SCH (08:30)
[2021-10-26] MEDS: cloNIDine HCL 0.1 MG TAB PO SCH ×2 (08:30→23:13)
[2021-10-26] MEDS: ONDANSETRON ODT 4 MG TAB PO SCH ×3 (08:31→23:13)
[2021-10-26] MEDS: APIXABAN 5 MG TAB PO SCH ×2 (08:31→23:14)
[2021-10-26] MEDS: PANTOPRAZOLE 40 MG TABLET PO SCH (08:31)
[2021-10-26] MEDS: ASCORBIC ACID 500 MG TAB PO SCH (08:31)
[2021-10-26] MEDS: amLODIPine 10 MG TAB PO SCH (08:31)
[2021-10-26 08:32] LABS: Magnesium 2.1 mg/dL (1.6-2.3)
[2021-10-26 08:36] LABS: Gentamicin,Random 10.4 ug/mL
[2021-10-26] MEDS: IPRATROPIUM-ALBUTEROL 3 ML NEB INHALATION SCH ×4 (08:52→20:35)
[2021-10-26] MEDS: SYMBICORT 160-4.5 MCG INHALER INHALATION SCH ×2 (08:52→20:35)
[2021-10-26] MEDS: HYDROcodone/APAP 7.5-325MG 1 EACH TAB PO PRN ×2 (09:19→23:19)
[2021-10-26] MEDS: MAGNESIUM HYDROXIDE 2,400 MG/10 ML CUP PO PRN (09:41)
[2021-10-26 11:21] LABS: Glucose,Whole Blood 229 mg/dL (75-99)
[2021-10-26] MEDS: LACTOBACILLUS ACIDOPH & BULGAR 1 EACH PACKET PO SCH (11:51)
[2021-10-26] MEDS ORDERED: VANCOMYCIN IV PER PHARMACY 1 EACH MISC MISCELLANE PRN (12:44)
[2021-10-26] MEDS: INSULIN ASPART (NovoLOG) 100 UNIT/ML VIAL SQ SCH ×3 (13:08→23:14)
[2021-10-26] MEDS ORDERED: VANCOMYCIN 1,500 MG in SODIUM CHLORIDE 0.9% 250 ML IVPB ONE (13:30)
[2021-10-26 13:45] LABS: Appearance,Urine Clear (Clear); Bilirubin,Urine Negative (Negative); Blood,Urine Negative (Negative); Color,Urine Yellow; Glucose,Urine (UA) Negative (Negative); Hyaline Casts,Urine 12 /lpf (0-2); Ketones,Urine Negative (Negative); Leukocyte Esterase,Urine Small (Negative); Mucus,Urine Rare /hpf; Nitrite,Urine Negative (Negative); PH, Urine 5.5 (5.0-8.0); Protein,Urine Trace (Negative); RBC,Urine 1 /hpf (0-5); Specific Gravity,Urine 1.011 (1.001-1.035); Squamous Epithelial Cell,Urine 2 /hpf (0-4); Urobilinogen,Urine <2.0 mg/dL (<2.0); WBC,Urine 7 /hpf (0-5)
[2021-10-26 16:27] LABS: Glucose,Whole Blood 142 mg/dL (75-99)
--- NOTE | 2021-10-26 16:34 | XR ---
EXAMINATION TYPE: XR KUB DATE OF EXAM: 10/26/2021 3:33 PM INDICATION: Patient age:Female; 81 years old; Reason for study: rule out constipation. COMPARISON: CT abdomen pelvis 10/21/2021. TECHNIQUE: One radiographic view of the abdomen was obtained. FINDINGS: There is a moderate to large stool burden throughout the colon. The bowel gas pattern is no nspecific without dilated loops of small or large bowel. The osseous structures are intact. No abnor mal calcifications are present. Fecal material and gas are demonstrated throughout the colon and rect um. Cholecystectomy clips are seen in the right upper quadrant. IMPRESSION: Moderate to large stool burden throughout the colon with a nonspecific bowel gas pattern without radi ographic evidence for acute process.
[2021-10-26] MEDS ORDERED: polyethylene glycoL 3350 17 GM POWD.PACK PO STA (17:02)
[2021-10-26] MEDS: bisacodyL 10 MG SUPP RECTAL STA ×2 (17:12→18:04)
[2021-10-26] MEDS ORDERED: GENTAMICIN 120 MG in SODIUM CHLORIDE 0.9% 100 ML IVPB SCH (20:00)
[2021-10-26] MEDS ORDERED: MIRTAZAPINE 15 MG TAB PO SCH (21:00)
--- NOTE | 2021-10-26 21:17 | P.HPIM ---
History of Present Illness This is a pleasant 81 years old female with multiple visits to the emergency room and she was recently hospitalized as inpatient last month for acute COPD exacerbation and found to have small nonocclusive pulmonary emboli of the li ngula and currently she is on Eliquis,Patient also has history of multiple abdominal surgeries and prior history of bowel obstruction requiring She presents this time with nausea vomiting, she was recently started on antibiotic for UTI, and on admission she was hypertensive 222/111 She was recently visited the emergency room on 10/21 for abdominal pain, At that time CT of the abdomen and pelvis: No acute process seen Patient says that she has pain in the left flank area yesterday she was sitting at her assisted living home where she felt warm nauseated and vomited 3 times with no blood, since that she's been complaining of from this pain in her left flank area. Patient complaining of from constipation, she had a suppository followed by large bowel movement. Bladder scan was checked and it was 112. She denies smoking, alcohol or illicit drugs Patient is unaware she is diabetic, however her hemoglobin A1c was elevated 8.4% recently. Currently patient is hemodynamically stable, blood pressure improved 168/80, patient requiring 5 L of oxygen via nasal cannula to keep saturation at 96% (w hich is her baseline, on September also she was on 5 L oxygen via nasal cannula) CBC is unremarkable, BMP showed creatinine 1.1 which is baseline. Sodium 136. Liver enzymes elevated. TSH slightly up 5.01 but normal free T4 1 0.2. Chest x-ray: Mild bibasilar opacity, probably atelectasis EKG: Normal sinus rhythm at [address]-T changes and QTC 417. Urinalysis from 10/21 showing evidence of infection with large leukocyte esterase and WBCs 30 which is elevated. Urine culture is growing resistant enterococcus faecium In the emergency room she received Benadryl, gentamicin, [place] 7.5 and feculent Hemoglobin A1c was elevated on 09/27/2011 at 8.4 Review of Systems CONSTITUTIONAL: No fever, no malaise, no fatigue. HEENT: No recent visual problems or hearing problems. Denied any sore throat. CARDIOVASCULAR: No orthopnea, PND, no palpitations, no syncope. PULMONARY: No shortness of breath, no cough, no hemoptysis. GASTROINTESTINAL: No diarrhea, no nausea, no vomiting, no abdominal pain. Normoactive bowel sounds. NEUROLOGICAL: No headaches, no weakness, no numbness. HEMATOLOGICAL: Denies any bleeding or petechiae. GENITOURINARY: Denies any burning micturition, frequency, or urgency. MUSCULOSKELETAL/RHEUMATOLOGICAL: Denies any joint pain, swelling, or any muscle pain. ENDOCRINE: Denies any polyuria or polydipsia. Past Medical History Past Medical History: Asthma, Cancer, Heart Failure, COPD, GERD/Reflux, Hyperlipidemia, Hypertension, Osteoarthritis (OA), Pneumonia, Pulmonary Embolus (PE), Rheumatoid Arthritis (RA), Sleep Apnea/CPAP/BIPAP, Thyroid Disorder Additional Past Medical History / Comment(s): COPD/asthma, chronic cough, hypothyroidism, history of basal cell carcinoma of the skin resected, history of melanoma of the skin involving the back, resected, history of diverticulosis/diverticulitis, history of fibrocystic disease, obstructive sleep apnea can sleep with the CPAP, varicose veins in lower extremities, hypothyroidism, covid 3-4 weeks ago. History of Any Multi-Drug Resistant Organisms: None Reported Past Surgical History: Bladder Surgery, Bowel Resection, Cholecystectomy, Heart Catheterization, Hernia Repair, Hysterectomy, Joint Replacement, Orthopedic Surgery Additional Past Surgical History / Comment(s): LEFT KNEE REPLACED, PARTIAL THYROIDECTOMY,HIATAL HERNIA REPAIR 07/2013, ABDOMINAL HERNIA REPAIR,MULTIPLE SKIN LESIONS-PT STATED HAS HAS BASAL,SQUAMOUS AND MELANOMA SKIN CA ( NECK,RT UPPER & LOWER THIGH,LT ARM,RT ARM, face, back-melanoma)SKIN GRAFTS TO VINOD.LEGS- LT EAR-LT MIDDLE FINGER,ACHILLES TENDON surgery. RT OVARY 1 TUBE REMOVED, SIGMOID RESECTION D/T BOWEL OBSTRUCTION,RT LITLE FINGER AMP, Past Anesthesia/Blood Transfusion Reactions: Previous Problems w/ Anesthesia, Motion Sickness, Postoperative Nausea & Vomiting (PONV) Additional Past Anesthesia/Blood Transfusion Reaction / Comment(s): STATES "HAS HAD SWELLING TO FACE,HANDS,ARMS AND SKIN TURNS "BEET RED"WITH ANESTHESIA-with IV sedation. states no problems with last surgery at [facility] 01/2017-anesthesia records on chart Past Psychological History: Anxiety Smoking Status: Former smoker Past Alcohol Use History: None Reported Past Drug Use History: None Reported - Past Family History Mother Family Medical History: Diabetes Mellitus Additional Family Medical History / Comment(s): HEART PROBLEMS Sister(s) Family Medical History: Diabetes Mellitus, Myocardial Infarction ([place]) Additional Family Medical History / Comment(s): EMPHYSEMA Father Family Medical History: Cancer Additional Family Medical History / Comment(s): LUNG CA. Medications and Allergies Home Medications Medication Instructions Recorded Confirmed Type Levothyroxine Sodium [Synthroid] 125 mcg PO DAILY@0700 10/18/20 10/25/21 History amLODIPine [Norvasc] 10 mg PO DAILY@0700 10/18/20 10/25/21 History Sertraline [Zoloft] 50 mg PO HS@189906/03/21 10/25/21 History cloNIDine HCL [Catapres] 0.3 mg PO BID@0700,189906/03/21 10/25/21 History Docusate [Colace] 400 mg PO HS@189906/29/21 10/25/21 History Furosemide [Lasix] 40 mg PO BID@0700,189906/29/21 10/25/21 History Mirtazapine [Remeron] 15 mg PO HS@189906/29/21 10/25/21 History Multivit-Min/Iron/Folic/Lutein 1 tab PO DAILY@0707/10/21 10/25/21 History [Centrum Silver Women Tablet] Simvastatin 40 mg PO HS@189907/10/21 10/25/21 History SILVER sulfADIAZINE Cream 1 applic TOPICAL BID@0700,189907/27/21 10/25/21 History [Silvadene 1% Cream] Acetaminophen [Tylenol] 500 - 1,000 mg PO Q6H PRN 08/26/21 10/25/21 History Black Elderberry 2000mg Capsule 4,000 mg PO BID@07,189908/26/21 10/25/21 History Calcium Carbonate [Tums] 1,000 - 2,000 mg PO DAILY PRN 08/26/21 10/25/21 History Carvedilol [Coreg] 25 mg PO BID@0700,189908/26/21 10/25/21 History Guaifenesin/Dextromethorphan 20 ml PO DIRECTED PRN 08/26/21 10/25/21 History [Robitussin Cough-Chest Dm Liq] HYDROcodone/APAP 7.5-325MG [[place] 1 tab PO Q6H PRN 08/26/21 10/25/21 History 7.5-325] Lansoprazole [Prevacid] 30 mg PO DAILY@0700 08/26/21 10/25/21 History Spironolactone 25 mg PO DAILY@0700 08/26/21 10/25/21 History Zolpidem Tartrate [Ambien] 5 mg PO HS PRN 08/26/21 10/25/21 History Allergy Relief 50 mg PO BID@0700,1900 09/25/21 10/25/21 History Ascorbic Acid [Vitamin C] 500 mg PO DAILY@0700 09/25/21 10/25/21 History Cholecalciferol [Vitamin D3 (25 25 mcg PO DAILY@0700 09/25/21 10/25/21 History Mcg = 1000 Iu)] Colon Health Probiotic 1 cap PO DAILY@0700 09/25/21 10/25/21 History Ipratropium-Albuterol Nebulize 3 ml INHALATION RT-QID 09/25/21 10/25/21 History [Duoneb 0.5 mg-3 mg/3 ml Soln] Zinc 50 mg PO DAILY@0700 09/25/21 10/25/21 History guaiFENesin [Mucinex] 1,200 mg PO Q12H PRN 09/25/21 10/25/21 History Budesonide-Formot 160-4.5 Mcg 2 puff INHALATION RT-BID 30 Days 09/27/21 10/25/21 Rx [Symbicort 160-4.5 Mcg Inhaler] #8 gm Apixaban [Eliquis] 5 mg PO BID 10/25/21 10/25/21 History Levofloxacin [Levaquin] 500 mg PO DAILY@0800 10/25/21 10/25/21 History Menthol [[place]] 7.5 mg MM DIRECTED PRN 10/25/21 10/25/21 History Ondansetron Odt [Zofran Odt] 4 mg PO TID@0800,1600,199910/25/21 10/25/21 History Ondansetron [Zofran] 4 mg PO Q8HR PRN 10/25/21 10/25/21 History Quercetin Bromelain Caps 2 capsule PO DAILY@0700 10/25/21 10/25/21 History Allergies Allergy/AdvReac Type Severity Reaction Status Date / Time onion Allergy Unknown Verified 10/25/21 21:54 adhesive AdvReac SKIN Verified 10/25/21 21:54 REDDENS & BLISTERS- PAPER TAPE OKAY aspirin AdvReac STOMACH Verified 10/25/21 21:54 HERRERA azithromycin [From Zithromax] AdvReac Nausea & Verified 10/25/21 21:54 Vomiting lactose AdvReac Nausea Verified 10/25/21 21:54 meperidine HCl [From Demerol] AdvReac Nausea & Verified 10/25/21 21:54 Vomiting morphine AdvReac Nausea & Verified 10/25/21 21:54 Vomiting Sulfa (Sulfonamide AdvReac Nausea & Verified 10/25/21 21:54 Antibiotics) Vomiting tree and shrub pollen AdvReac Cough Verified 10/25/21 21:54 anesthesia Allergy facial/arms/hands Uncoded 10/25/21 21:54 swelling,skin"turns beet red", nausea DISSOLVING SUTURES AdvReac INFECTION Uncoded 10/25/21 19:35 Physical Exam Vitals: Vital Signs Temp Pulse Pulse Resp BP BP BP 10/26/21 07:06 98.8 F 71 16 168/80 10/26/21 01:25 99 F 77 20 137/84 10/25/21 22:00 86 18 144/80 10/25/21 20:40 83 10/25/21 20:35 86 16 150/78 10/25/21 20:34 82 10/25/21 19:30 98.2 F 106 H 25 H 222/111 Pulse Ox 10/26/21 07:06 96 10/26/21 01:25 93 L 10/25/21 22:00 95 10/25/21 20:40 10/25/21 20:35 95 10/25/21 20:34 10/25/21 19:30 93 L Intake and Output 10/25/21 10/26/21 10/26/21 22:59 06:59 14:59 Other: # Voids 1 Weight 99.337 kg 99.337 kg GENERAL: The patient is alert and oriented x3, not in any acute distress. Well developed, well nourished. HEENT: Pupils are round and equally reacting to light. EOMI. No scleral icterus. No conjunctival pallor. Normocephalic, atraumatic. No pharyngeal erythema. No thyromegaly. CARDIOVASCULAR: S1 and S2 present. No murmurs, rubs, or gallops. PULMONARY: Chest is clear to auscultation, no wheezing or crackles. ABDOMEN: Soft, nontender, nondistended, normoactive bowel sounds. No palpable organomegaly. MUSCULOSKELETAL: No joint swelling or deformity. EXTREMITIES: No cyanosis, clubbing, or pedal edema. NEUROLOGICAL: Gross neurological examination did not reveal any focal deficits. SKIN: No rashes. No petechiae Results CBC & Chem 7: 10/26/21 05:48 10/26/21 05:48 Labs: Abnormal Lab Results - Last 24 Hours (Table) 10/25/21 10/25/21 10/26/21 Range/Units 20:31 20:31 05:48 RDW 15.6 H (11.5-15.5) % Neutrophils # 8.1 H (1.3-7.7) k/uL Sodium 135 L 136 L (137-145) mmol/L Chloride 90 L 92 L (98-107) mmol/L Carbon Dioxide 34 H 40 H (22-30) mmol/L Creatinine 1.08 H 1.11 H (0.52-1.04) mg/dL Glucose 189 H 157 H (74-99) mg/dL TSH 5.180 H (0.465-4.680) mIU/L Thrombosis Risk Factor Assmnt - Choose All That Apply Any of the Below Risk Factors Present?: Yes Each Factor Represents 1 point: Abnormal pulmonary function (COPD), Obesity (BMI >25) Each Risk Factor Represents 3 Points: History of DVT/PE Thrombosis Risk Factor Assessment Total Risk Factor Score: 5 Thrombosis Risk Factor Assessment Level: High Risk Assessment and Plan Assessment: Nausea vomiting suspicious for acute gastroenteritis Recent history of acute urinary tract infection, With continued ongoing infection and urine culture growing enterococcus faecium (The same organism detected in the urine, last year) Possible new onset diabetes mellitus with hemoglobin A1c 8.4%, or go to repeat the test Hypertension with urgency, present on admission, currently improved COPD, not acute exacerbation. With chronic hypoxic respiratory failure 4-5 L/m at home Recent history of small nonocclusive PE, currently on Eliquis, failed warfarin for the same history of PE Evidence of chronic kidney disease, stage III history of multiple abdominal surgeries and prior history of bowel obstruction requiring History of rheumatoid arthritis History of diverticular disease History of GERD Hypothyroidism Chronic back pain on [place] 7.5 History of coronary artery disease. Plan: This is a pleasant 81 years old female who presents with nausea vomiting. resend urine analysis Follow-up with infectious disease team. Patient already received a dose of gentamicin, next dose is a 48 hours. We will defer the decision of antibiotic to infectious disease team. Continue gentle hydration Currently she is on Coreg 25 mg, clonidine 0.3 mg twice a day, Lasix 40 mg twice a day, and Aldactone 25 mg daily. She is also on Norvasc 10 mg and keep m onitoring blood pressure Check hemoglobin A1c. Place the patient on insulin sliding scale. Check KUB and renal ultrasound Labs and medication were reviewed.. Continue same treatment. Continue with symptomatic treatment. Resume home medication. Monitor lytes and vitals. DVT and GI prophylaxis. Further recommendations depends on the clinical course of the patient DVT prophylaxis: Eliquis GI Prophylaxis: Ppi PT/OT: Pending Prognosis is guarded
--- NOTE | 2021-10-26 22:00 | US ---
EXAMINATION TYPE: US renals and bladder DATE OF EXAM: 10/26/2021 COMPARISON: CT 2021, US 2015 CLINICAL HISTORY: uti, recurrent , ckd Exam done portable EXAM MEASUREMENTS: Right Kidney: 10.4 x 5.0 x 5.1 cm Left Kidney: n/a Difficult and limited study due to patient body habitus and exam done with patient sitting in chair Right Kidney: no hydronephrosis or masses seen Left Kidney: not seen Bladder: appears wnl There is no evidence for hydronephrosis at this point in time. No nephrolithiasis is seen. No claudette s are identified. The urinary bladder is anechoic. Bilateral ureteral jets are seen. IMPRESSION: 1. No evidence obstructive uropathy. 2. Nonvisualization left kidney.
[2021-10-26 23:11] LABS: Glucose,Whole Blood 217 mg/dL (75-99)
[2021-10-26] MEDS: SERTRALINE 50 MG TAB PO SCH (23:13)
[2021-10-26] MEDS: DOCUSATE 100 MG CAP PO SCH (23:13)
[2021-10-26] MEDS: ATORVASTATIN 20 MG TAB PO SCH (23:14)
--- NOTE | 2021-10-26 23:53 | P.CONS ---
History of Present Illness - Reason for Consult Consult date: 10/26/21 Drug-resistant urinary tract infection Requesting physician: Victoria Khan - Chief Complaint Left flank pain x few days - History of Present Illness Patient is 81-year-old female with a past medical history significant for recurrent urinary tract infection in this patient presented to ER last night for evaluation of nausea and vomiting in this patient has been complaining of pain to the left flank area describing it more of a sharp in nature intensity is about 6-7 out of 10 and no radiation patient apparently was recently diagnosed with a UTI and has been treated with the oral Zyvox or the patient simply having problem with nausea vomiting and number to tolerate her medication with the center the patient presenting back to the hospital on arrival to the ER the patient was afebrile and did have low-grade fever of 99 F patient did have a normal white count with a left shift creatinine was evaluated 1.11 liver enzymes were normal patient did have a chest x-ray mild bibasilar opacities patient was admitted to the hospital infectious disease was consulted for further management of antibiotic because of her patient with multiple antibiotic allergies the patient last urine culture done on 10/21/2021 was Enterococcus faecium sensitive to vancomycin Review of Systems Positive point has been mentioned in the HPI rest of the systems are negative Past Medical History Past Medical History: Asthma, Cancer, Heart Failure, COPD, GERD/Reflux, Hyperlipidemia, Hypertension, Osteoarthritis (OA), Pneumonia, Pulmonary Embolus (PE), Rheumatoid Arthritis (RA), Sleep Apnea/CPAP/BIPAP, Thyroid Disorder Additional Past Medical History / Comment(s): COPD/asthma, chronic cough, hypothyroidism, history of basal cell carcinoma of the skin resected, history of melanoma of the skin involving the back, resected, history of diverticulosis/diverticulitis, history of fibrocystic disease, obstructive sleep apnea can sleep with the CPAP, varicose veins in lower extremities, hypothyroidism, covid 3-4 weeks ago. History of Any Multi-Drug Resistant Organisms: None Reported Past Surgical History: Bladder Surgery, Bowel Resection, Cholecystectomy, Heart Catheterization, Hernia Repair, Hysterectomy, Joint Replacement, Orthopedic Surgery Additional Past Surgical History / Comment(s): LEFT KNEE REPLACED, PARTIAL THYROIDECTOMY,HIATAL HERNIA REPAIR 07/2013, ABDOMINAL HERNIA REPAIR,MULTIPLE SKIN LESIONS-PT STATED HAS HAS BASAL,SQUAMOUS AND MELANOMA SKIN CA ( NECK,RT UPPER & LOWER THIGH,LT ARM,RT ARM, face, back-melanoma)SKIN GRAFTS TO VINOD.LEGS- LT EAR-LT MIDDLE FINGER,ACHILLES TENDON surgery. RT OVARY 1 TUBE REMOVED, SIGMOID RESECTION D/T BOWEL OBSTRUCTION,RT LITLE FINGER AMP, Past Anesthesia/Blood Transfusion Reactions: Previous Problems w/ Anesthesia, Motion Sickness, Postoperative Nausea & Vomiting (PONV) Additional Past Anesthesia/Blood Transfusion Reaction / Comm: STATES "HAS HAD SWELLING TO FACE,HANDS,ARMS AND SKIN TURNS "BEET RED"WITH ANESTHESIA-with IV sedation. states no problems with last surgery at [facility] 01/2017-anesthesia omkar rds on chart Past Psychological History: Anxiety Smoking Status: Former smoker Past Alcohol Use History: None Reported Past Drug Use History: None Reported - Past Family History Mother Family Medical History: Diabetes Mellitus Additional Family Medical History / Comment(s): HEART PROBLEMS Sister(s) Family Medical History: Diabetes Mellitus, Myocardial Infarction ([place]) Additional Family Medical History / Comment(s): EMPHYSEMA Father Family Medical History: Cancer Additional Family Medical History / Comment(s): LUNG CA. Medications and Allergies Home Medications Medication Instructions Recorded Confirmed Type Levothyroxine Sodium [Synthroid] 125 mcg PO DAILY@0700 10/18/20 10/25/21 History amLODIPine [Norvasc] 10 mg PO DAILY@0700 10/18/20 10/25/21 History Sertraline [Zoloft] 50 mg PO HS@1900 06/03/21 10/25/21 History cloNIDine HCL [Catapres] 0.3 mg PO BID@0700,1900 06/03/21 10/25/21 History Docusate [Colace] 400 mg PO HS@1900 06/29/21 10/25/21 History Furosemide [Lasix] 40 mg PO BID@0700,1900 06/29/21 10/25/21 History Mirtazapine [Remeron] 15 mg PO HS@1900 06/29/21 10/25/21 History Multivit-Min/Iron/Folic/Lutein 1 tab PO DAILY@0700 07/10/21 10/25/21 History [Centrum Silver Women Tablet] Simvastatin 40 mg PO HS@1900 07/10/21 10/25/21 History SILVER sulfADIAZINE Cream 1 applic TOPICAL BID@0700,1900 07/27/21 10/25/21 H istory [Silvadene 1% Cream] Acetaminophen [Tylenol] 500 - 1,000 mg PO Q6H PRN 08/26/21 10/25/21 History Black Elderberry 2000mg Capsule 4,000 mg PO BID@0700,189908/26/21 10/25/21 History Calcium Carbonate [Tums] 1,000 - 2,000 mg PO DAILY PRN 08/26/21 10/25/21 History Carvedilol [Coreg] 25 mg PO BID@0700,19008/26/21 10/25/21 History Guaifenesin/Dextromethorphan 20 ml PO DIRECTED PRN 08/26/21 10/25/21 History [Robitussin Cough-Chest Dm Liq] HYDROcodone/APAP 7.5-325MG [[place] 1 tab PO Q6H PRN 08/26/21 10/25/21 History 7.5-325] Lansoprazole [Prevacid] 30 mg PO DAILY@69908/26/21 10/25/21 History Spironolactone 25 mg PO DAILY@69908/26/21 10/25/21 History Zolpidem Tartrate [Ambien] 5 mg PO HS PRN 08/26/21 10/25/21 History Allergy Relief 50 mg PO BID@07,189909/25/21 10/25/21 History Ascorbic Acid [Vitamin C] 500 mg PO DAILY@69909/25/21 10/25/21 History Cholecalciferol [Vitamin D3 (25 25 mcg PO DAILY@69909/25/21 10/25/21 History Mcg = 1000 Iu)] Colon Health Probiotic 1 cap PO DAILY@69909/25/21 10/25/21 History Ipratropium-Albuterol Nebulize 3 ml INHALATION RT-QID 09/25/21 10/25/21 History [Duoneb 0.5 mg-3 mg/3 ml Soln] Zinc 50 mg PO DAILY@69909/25/21 10/25/21 History guaiFENesin [Mucinex] 1,200 mg PO Q12H PRN 09/25/21 10/25/21 History Budesonide-Formot 160-4.5 Mcg 2 puff INHALATION RT-BID 30 Days 09/27/21 10/25/21 Rx [Symbicort 160-4.5 Mcg Inhaler] #8 gm Apixaban [Eliquis] 5 mg PO BID 10/25/21 10/25/21 History Levofloxacin [Levaquin] 500 mg PO DAILY@0800 10/25/21 10/25/21 History Menthol [[place]] 7.5 mg MM DIRECTED PRN 10/25/21 10/25/21 History Ondansetron Odt [Zofran Odt] 4 mg PO TID@0800,1600,2000 10/25/21 10/25/21 History Ondansetron [Zofran] 4 mg PO Q8HR PRN 10/25/21 10/25/21 History Quercetin Bromelain Caps 2 capsule PO DAILY@0700 10/25/21 10/25/21 History Allergies Allergy/AdvReac Type Severity Reaction Status Date / Time onion Allergy Unknown Verified 10/25/21 21:54 adhesive AdvReac SKIN Verified 10/25/21 21:54 REDDENS & BLISTERS- PAPER TAPE OKAY aspirin AdvReac STOMACH Verified 10/25/21 21:54 HERRERA azithromycin [From Zithromax] AdvReac Nausea & Verified 10/25/21 21:54 Vomiting lactose AdvReac Nausea Verified 10/25/21 21:54 meperidine HCl [From Demerol] AdvReac Nausea & Verified 10/25/21 21:54 Vomiting morphine AdvReac Nausea & Verified 10/25/21 21:54 Vomiting Sulfa (Sulfonamide AdvReac Nausea & Verified 10/25/21 21:54 Antibiotics) Vomiting tree and shrub pollen AdvReac Cough Verified 10/25/21 21:54 anesthesia Allergy facial/arms/hands Uncoded 10/25/21 21:54 swelling,skin"turns beet red", nausea DISSOLVING SUTURES AdvReac INFECTION Uncoded 10/25/21 19:35 Physical Exam Vitals: Vital Signs Temp Pulse Pulse Resp BP BP BP 10/26/21 12:37 80 10/26/21 12:24 80 10/26/21 09:07 84 10/26/21 08:53 80 10/26/21 07:06 98.8 F 71 16 168/80 10/26/21 01:25 99 F 77 20 137/84 10/25/21 22:00 86 18 144/80 10/25/21 20:40 83 10/25/21 20:35 86 16 150/78 10/25/21 20:34 82 10/25/21 19:30 98.2 F 106 H 25 H 222/111 Pulse Ox 10/26/21 12:37 10/26/21 12:24 10/26/21 09:07 10/26/21 08:53 10/26/21 07:06 96 10/26/21 01:25 93 L 10/25/21 22:00 95 10/25/21 20:40 10/25/21 20:35 95 10/25/21 20:34 10/25/21 19:30 93 L Intake and Output 10/25/21 10/26/21 10/26/21 22:59 06:59 14:59 Other: Voiding Method Toilet # Voids 1 Weight 99.337 kg 99.337 kg GENERAL DESCRIPTION: An elderly female lying in bed, no distress. No tachypnea or accessory muscle of respiration use. HEENT: Shows Pallor , no scleral icterus. Oral mucous membrane is dry. No pharyngeal erythema or thrush NECK: Trachea central, no thyromegaly. LUNGS: Unlabored breathing. Clear to auscultation anteriorly. 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 HEART: S1, S2, regular rate and rhythm. No loud murmur ABDOMEN: Soft, no tenderness , guarding or rigidity, no organomegaly EXTREMITIES: No edema of feet. SKIN: No rash, no masses palpable. NEUROLOGICAL: The patient is awake, alert, oriented x3, mood and affect normal. Results CBC & Chem 7: 10/26/21 05:48 10/26/21 05:48 Labs: Abnormal Lab Results - Last 24 Hours (Table) 10/25/21 10/25/21 10/26/21 Range/Units 20:31 20:31 05:48 RDW 15.6 H (11.5-15.5) % Neutrophils # 8.1 H (1.3-7.7) k/uL Sodium 135 L 136 L (137-145) mmol/L Chloride 90 L 92 L (98-107) mmol/L Carbon Dioxide 34 H 40 H (22-30) mmol/L Creatinine 1.08 H 1.11 H (0.52-1.04) mg/dL Glucose 189 H 157 H (74-99) mg/dL POC Glucose (mg/dL) (75-99) mg/dL Hemoglobin A1c (0.0-6.0) % Procalcitonin (0.02-0.09) ng/mL TSH 5.180 H (0.465-4.680) mIU/L 10/26/21 10/26/21 10/26/21 Range/Units 05:48 08:21 11:19 RDW (11.5-15.5) % Neutrophils # (1.3-7.7) k/uL Sodium (137-145) mmol/L Chloride (98-107) mmol/L Carbon Dioxide (22-30) mmol/L Creatinine (0.52-1.04) mg/dL Glucose (74-99) mg/dL POC Glucose (mg/dL) 229 H (75-99) mg/dL Hemoglobin A1c 8.6 H (0.0-6.0) % Procalcitonin 0.19 H (0.02-0.09) ng/mL TSH (0.465-4.680) mIU/L Assessment and Plan (1) UTI (urinary tract infection) Current Visit: Yes Status: Acute Code(s): N39.0 - URINARY TRACT INFECTION, SITE NOT SPECIFIED SNOMED Code(s): 40530299 Plan: 1patient with a history of recurrent UTI with recent urine culture positive for Enterococcus faecium and the patient seem to have failed oral Zyvox therapy because of GI side effect. 2we will repeat her urine culture. 3ultrasound of the kidneys 4vancomycin pharmacy to dose target trough of 15 while watching kidney functi on and vancomycin trough closely We will follow on clinical condition and cultures to further adjust medication if needed Thank you for this consultation will follow this patient along with you Time with Patient: Greater than 30
[2021-10-27] MEDS: HYDROcodone/APAP 7.5-325MG 1 EACH TAB PO PRN ×2 (06:23→20:05)
[2021-10-27] MEDS: LEVOTHYROXINE 125 MCG TAB PO SCH (06:23)
[2021-10-27] MEDS: IPRATROPIUM-ALBUTEROL 3 ML NEB INHALATION SCH ×4 (07:16→20:45)
[2021-10-27] MEDS: SYMBICORT 160-4.5 MCG INHALER INHALATION SCH ×2 (07:17→20:46)
[2021-10-27 07:24] LABS: Glucose,Whole Blood 183 mg/dL (75-99)
[2021-10-27] MEDS: SPIRONOLACTONE 25 MG TAB PO SCH (08:31)
[2021-10-27] MEDS: ZINC SULFATE 220 MG CAP PO SCH (08:31)
[2021-10-27] MEDS: MULTIVITAMINS, THERA 1 EACH TAB PO SCH (08:31)
[2021-10-27] MEDS: cloNIDine HCL 0.1 MG TAB PO SCH (08:31)
[2021-10-27] MEDS: ASCORBIC ACID 500 MG TAB PO SCH (08:31)
[2021-10-27] MEDS: PANTOPRAZOLE 40 MG TABLET PO SCH (08:31)
[2021-10-27] MEDS: APIXABAN 5 MG TAB PO SCH (08:31)
[2021-10-27] MEDS: FUROSEMIDE 40 MG TAB PO SCH ×2 (08:31→17:14)
[2021-10-27] MEDS: ONDANSETRON ODT 4 MG TAB PO SCH ×3 (08:32→21:59)
[2021-10-27] MEDS: carvediloL 12.5 MG TAB PO SCH ×2 (08:32→22:01)
[2021-10-27] MEDS: INSULIN ASPART (NovoLOG) 100 UNIT/ML VIAL SQ SCH ×4 (08:32→22:01)
[2021-10-27] MEDS: amLODIPine 10 MG TAB PO SCH (08:32)
[2021-10-27] MEDS: LACTOBACILLUS ACIDOPH & BULGAR 1 EACH PACKET PO SCH (08:41)
[2021-10-27 08:42] LABS: Basophils # (A) 0.04 X 10*3/uL (0.00-0.10); Basophils % (A) 0.4 %; Eosinophils # (A) 0.21 X 10*3/uL (0.04-0.35); Eosinophils % (A) 2.3 %; HCT 36.5 % (37.2-46.3); HGB 10.8 g/dL (12.0-15.0); Immature Grans, Automated 0.7 %; Lymphocytes # (A) 1.93 X 10*3/uL (0.90-5.00); Lymphocytes % (A) 21.5 %; MCH 28.3 pg (27.0-32.0); MCHC 29.6 g/dL (32.0-37.0); MCV 95.8 fL (80.0-97.0); Mean Platelet Volume 9.8 fL (9.5-12.2); Monocytes # (A) 0.79 X 10*3/uL (0.20-1.00); Monocytes % (A) 8.8 %; NRBC Per 100 WBC 0 /100 WBCS (0.0-0.0); Neutrophils # (A) 5.94 X 10*3/uL (1.80-7.70); Neutrophils % (A) 66.3 %; Platelet Count 266 X 10*3/uL (140-440); RBC 3.81 X 10*6/uL (4.10-5.20); WBC 8.97 X 10*3/uL (4.50-10.00)
[2021-10-27 08:53] LABS: African American GFR (CKD) 30.3 (60.0-200.0); Anion Gap 12.7 mmol/L (10.00-18.00); BUN/Creat Ratio 9.66 Ratio (12.00-20.00); Blood Urea Nitrogen 17.2 mg/dL (9.0-27.0); Carbon Dioxide 32.2 mmol/L (20.0-27.5); Non-African American GFR(CKD) 26.1 (60.0-200.0); Potassium 4.5 mmol/L (3.5-5.5)
[2021-10-27 08:54] LABS: Magnesium 3.1 mg/dL (1.5-2.4)
[2021-10-27] MEDS ORDERED: VANCOMYCIN 1,500 MG in SODIUM CHLORIDE 0.9% 250 ML IVPB SCH (10:00)
[2021-10-27 11:58] LABS: Glucose,Whole Blood 177 mg/dL (75-99)
[2021-10-27] MEDS ORDERED: VANCOMYCIN IV PER PHARMACY 1 EACH MISC MISCELLANE PRN (12:51)
--- NOTE | 2021-10-27 14:23 | XR ---
EXAMINATION TYPE: XR ribs LT DATE OF EXAM: 10/27/2021 COMPARISON: Chest x-ray 10/25/2021 HISTORY: Chest pain TECHNIQUE: 4 views FINDINGS: There is some mild linear density at the left lung base and blunting left costophrenic angl e. No evidence of pneumothorax. Thoracic aorta is atheromatous. No fracture seen. There is some defor mity of several lower ribs consistent with old fractures. IMPRESSION: No acute rib fracture. There is some mild pleural reaction and atelectasis left lung base without change.
--- NOTE | 2021-10-27 14:31 | XR ---
EXAMINATION TYPE: XR thoracic spine complete DATE OF EXAM: 10/27/2021 COMPARISON: Chest x-ray 10/25/2021 HISTORY: Chest pain TECHNIQUE: 3 views FINDINGS: There is osteopenia. There is mild anterior wedging of numerous thoracic vertebrae and thor acic kyphotic deformity. There is no paraspinal mass. There is some linear density at the right pulmonary hilum consistent wit h atelectasis. Thoracic aorta is atheromatous. IMPRESSION: Osteoporotic multiple compression fractures with kyphotic deformity without change compar ed to recent exam. There is progression of the kyphosis compared to older chest x-ray of 07/27/2021.
[2021-10-27 16:59] LABS: Glucose,Whole Blood 182 mg/dL (75-99)
--- NOTE | 2021-10-27 21:03 | P.PN ---
Subjective This is a pleasant 81 years old female with multiple visits to the emergency room and she was recently hospitalized as inpatient last month for acute COPD exacerbation and found to have small nonocclusive pulmonary emboli of the lingula and currently she is on Eliquis,Patient also has history of multiple abdominal surgeries and prior history of bowel obstruction requiring She presents this time with nausea vomiting, she was recently started on antibiotic for UTI, and on admission she was hypertensive 222/111 She was recently visited the emergency room on 10/21 for abdominal pain, At that time CT of the abdomen and pelvis: No acute process seen Patient says that she has pain in the left flank area yesterday she was sitting at her assisted living home where she felt warm nauseated and vomited 3 times with no blood, since that she's been complaining of from this pain in her left flank area. Patient complaining of from constipation, she had a suppository followed by large bowel movement. Bladder scan was checked and it was 112. She denies smoking, alcohol or illicit drugs Patient is unaware she is diabetic, however her hemoglobin A1c was elevated 8.4% recently. Currently patient is hemodynamically stable, blood pressure improved 168/80, patient requiring 5 L of oxygen via nasal cannula to keep saturation at 96% (which is her baseline, on September also she was on 5 L oxygen via nasal cannula) CBC is unremarkable, BMP showed creatinine 1.1 which is baseline. Sodium 136. Liver enzymes elevated. TSH slightly up 5.01 but normal free T4 1 0.2. Chest x-ray: Mild bibasilar opacity, probably atelectasis EKG: Normal sinus rhythm at [address]-T changes and QTC 417. Urinalysis from 10/21 showing evidence of infection with large leukocyte esterase and WBCs 30 which is elevated. Urine culture is growing resistant enterococcus faecium In the emergency room she received Benadryl, gentamicin, [place] 7.5 and feculent Hemoglobin A1c was elevated on 09/27/2011 at 8.4 10/27/2021 Patient nausea vomiting stopped, she is awake and alert, she still have meddle back pain and left side chest pain since she fell about 2 weeks ago. Rib x-rays negative for fracture Thoracic x-ray showing osteoporotic multiple compression fractures with every 4 to deformity without change compared to recent exam. There is progression of the kyphosis compared to old chest x-ray of the 07/27/2021 No dysuria or urgency. She still been treated for UTI enterococcus become with IV vancomycin however her creatinine went up today to 1.8, Bladder scan showing 150-200 mL only, urine analysis showed trace protein, small leukocyte esterase. Patient already received IV vancomycin this morning, discussed with staff to check with pharmacy about dosing in view of worsening kidney function. Also other medications are checked we'll try to avoid nephrotoxic medication, Aldactone was held, Remeron and Eliquis ptosis woke up and to have. We'll start patient on normal saline at 75 mm/h No evidence of hypotension episodes actually her blood pressure on the high side 133/76, we'll start small dose of hydralazine 10 mg twice a day. Nephrology team were consulted patient had very good large bowel movement after suppository yesterday Objective - Vital Signs Vital signs: Vital Signs Temp 97.9 F 10/27/21 08:00 Pulse 77 10/27/21 11:42 Resp 16 10/27/21 11:42 BP 121/70 10/27/21 08:00 Pulse Ox 96 10/27/21 08:00 Intake & Output 10/26/21 10/27/21 10/27/21 18:59 06:59 18:59 Other: Voiding Method Toilet Toilet Toilet # Voids 1 # Bowel Movements 1 - Labs CBC & Chem 7: 10/27/21 06:19 10/27/21 06:15 Labs: Abnormal Lab Results - Last 24 Hours (Table) 10/26/21 10/26/21 10/26/21 Range/Units 13:03 16:21 23:09 RBC (4.10-5.20) X 10*6/uL Hgb (12.0-15.0) g/dL Hct (37.2-46.3) % MCHC (32.0-37.0) g/dL RDW (11.5-14.5) % Immature Gran # (0.00-0.04) X 10*3/uL Chloride (96-109) mmol/L Carbon Dioxide (20.0-27.5) mmol/L Creatinine (0.6-1.5) mg/dL Est GFR (CKD-EPI)AfAm (60.0-200.0) Est GFR (CKD-EPI)NonAf (60.0-200.0) BUN/Creatinine Ratio (12.00-20.00) Ratio Glucose (70-110) mg/dL POC Glucose (mg/dL) 142 H 217 H (75-99) mg/dL Magnesium (1.5-2.4) mg/dL Urine Protein Trace H (Negative) Ur Leukocyte Esterase Small H (Negative) Urine WBC 7 H (0-5) /hpf Hyaline Casts 12 H (0-2) /lpf Urine Mucus Rare H (None) /hpf 10/27/21 10/27/21 10/27/21 Range/Units 06:15 06:19 07:22 RBC 3.81 L (4.10-5.20) X 10*6/uL Hgb 10.8 L (12.0-15.0) g/dL Hct 36.5 L (37.2-46.3) % MCHC 29.6 L (32.0-37.0) g/dL RDW 16.0 H (11.5-14.5) % Immature Gran # 0.06 H (0.00-0.04) X 10*3/uL Chloride 93 L (96-109) mmol/L Carbon Dioxide 32.2 H (20.0-27.5) mmol/L Creatinine 1.8 H (0.6-1.5) mg/dL Est GFR (CKD-EPI)AfAm 30.3 L (60.0-200.0) Est GFR (CKD-EPI)NonAf 26.1 L (60.0-200.0) BUN/Creatinine Ratio 9.66 L (12.00-20.00) Ratio Glucose 160 H (70-110) mg/dL POC Glucose (mg/dL) 183 H (75-99) mg/dL Magnesium 3.1 H (1.5-2.4) mg/dL Urine Protein (Negative) Ur Leukocyte Esterase (Negative) Urine WBC (0-5) /hpf Hyaline Casts (0-2) /lpf Urine Mucus (None) /hpf 10/27/21 Range/Units 11:57 RBC (4.10-5.20) X 10*6/uL Hgb (12.0-15.0) g/dL Hct (37.2-46.3) % MCHC (32.0-37.0) g/dL RDW (11.5-14.5) % Immature Gran # (0.00-0.04) X 10*3/uL Chloride (96-109) mmol/L Carbon Dioxide (20.0-27.5) mmol/L Creatinine (0.6-1.5) mg/dL Est GFR (CKD-EPI)AfAm (60.0-200.0) Est GFR (CKD-EPI)NonAf (60.0-200.0) BUN/Creatinine Ratio (12.00-20.00) Ratio Glucose (70-110) mg/dL POC Glucose (mg/dL) 177 H (75-99) mg/dL Magnesium (1.5-2.4) mg/dL Urine Protein (Negative) Ur Leukocyte Esterase (Negative) Urine WBC (0-5) /hpf Hyaline Casts (0-2) /lpf Urine Mucus (None) /hpf Microbiology - Last 24 Hours (Table) 10/26/21 00:42 Blood Culture - Preliminary Blood No Growth after 24 hours 10/25/21 23:00 Blood Culture - Preliminary Blood No Growth after 24 hours 10/25/21 23:15 Blood Culture - Preliminary Blood No Growth after 24 hours Assessment and Plan Assessment: acute urinary tract infection, With continued ongoing infection and urine culture growing enterococcus faecium (The same organism detected in the urine, last year) Acute kidney injury Nausea vomiting , improving Possible new onset diabetes mellitus with hemoglobin A1c 8.4%, repeat the test Hypertension with urgency, present on admission, currently improved Osteoporosis with multiple compression fracture deformity of the thoracic spine vertebrae, with back pain secondary to fall 2 weeks prior to admission COPD, not acute exacerbation. With chronic hypoxic respiratory failure 4-5 L/m at home Recent history of small nonocclusive PE, currently on Eliquis, failed warfarin for the same history of PE Evidence of chronic kidney disease, stage III history of multiple abdominal surgeries and prior history of bowel obstruction requiring History of rheumatoid arthritis History of diverticular disease History of GERD Hypothyroidism Chronic back pain on [place] 7.5 History of coronary artery disease. Plan: This is a pleasant 81 years old female who presents with nausea vomiting. Start patient on normal saline, large doses of remeron and Eliquis. Informed pharmacy about worsening kidney function while on vancomycin, consult principal quality engineer Follow-up with infectious disease team. Patient already received a dose of gentamicin, currently she is on IV vancomycin. We will defer the decision of a ntibiotic to infectious disease team. Continue gentle hydration Currently she is on Coreg 25 mg, clonidine 0.3 mg twice a day, Lasix 40 mg twice a day, and . She is also on Norvasc 10 mg and keep monitoring blood pressure .Aldactone 25 mg daily stopped for worsening kidney function is started on h ydralazine 10 mg twice a day Check hemoglobin A1c. Place the patient on insulin sliding scale. Start calcium and vitamin D Labs and medication were reviewed.. Continue same treatment. Continue with symptomatic treatment. Resume home medication. Monitor lytes and vitals. DVT and GI prophylaxis. Further recommendations depends on the clinical course of the patient DVT prophylaxis: Eliquis GI Prophylaxis: Ppi PT/OT: Pending Prognosis is guarded
[2021-10-27 21:31] LABS: Glucose,Whole Blood 214 mg/dL (75-99)
[2021-10-27] MEDS: DOCUSATE 100 MG CAP PO SCH (21:58)
[2021-10-27] MEDS: hydrALAZINE HCL 10 MG TAB PO SCH (21:59)
[2021-10-27] MEDS: SERTRALINE 50 MG TAB PO SCH (21:59)
[2021-10-27] MEDS: ATORVASTATIN 20 MG TAB PO SCH (21:59)
[2021-10-27] MEDS: APIXABAN 2.5 MG TABLET PO SCH (22:00)
[2021-10-27] MEDS: MIRTAZAPINE 15 MG TAB PO SCH (22:00)
[2021-10-27] MEDS: SODIUM CHLORIDE 0.9% 1,000 ML IV SCH (22:09)
--- NOTE | 2021-10-27 22:49 | P.PN ---
Subjective Progress Note Date: 10/27/21 Principal diagnosis: Enterococcus urinary tract infection Patient is 81-year-old female with a past medical history significant for recurrent urinary tract infection presented to hospital with pain to the left flank area and concerning for symptomatic UTI with a recent urine culture positive for enterococcus, patient did not tolerated outpatient Zyvox. On today's evaluation that is 10/27 2021, the patient denies having any fever or chills, patient had been complaining of pain to the left lower rib cage area, patient denies having any chest shortness of breath or cough no abdominal pain and no diarrhea Objective - Vital Signs Vital signs: Vital Signs Temp 97.9 F 10/27/21 08:00 Pulse 77 10/27/21 11:42 Resp 16 10/27/21 11:42 BP 121/70 10/27/21 08:00 Pulse Ox 96 10/27/21 08:00 Intake & Output 10/26/21 10/27/21 10/27/21 18:59 06:59 18:59 Other: Voiding Method Toilet Toilet Toilet # Voids 1 # Bowel Movements 1 - Exam GENERAL DESCRIPTION: An elderly female lying in bed in no distress RESPIRATORY SYSTEM: Unlabored breathing , decreased breath sounds at bases HEART: S1 S2 regular rate and rhythm , ABDOMEN: Soft , no tenderness EXTREMITIES: No edema feet - Labs CBC & Chem 7: 10/27/21 06:19 10/27/21 06:15 Labs: Abnormal Lab Results - Last 24 Hours (Table) 10/26/21 10/26/21 10/26/21 Range/Units 13:03 16:21 23:09 RBC (4.10-5.20) X 10*6/uL Hgb (12.0-15.0) g/dL Hct (37.2-46.3) % MCHC (32.0-37.0) g/dL RDW (11.5-14.5) % Immature Gran # (0.00-0.04) X 10*3/uL Chloride (96-109) mmol/L Carbon Dioxide (20.0-27.5) mmol/L Creatinine (0.6-1.5) mg/dL Est GFR (CKD-EPI)AfAm (60.0-200.0) Est GFR (CKD-EPI)NonAf (60.0-200.0) BUN/Creatinine Ratio (12.00-20.00) Ratio Glucose (70-110) mg/dL POC Glucose (mg/dL) 142 H 217 H (75-99) mg/dL Magnesium (1.5-2.4) mg/dL Urine Protein Trace H (Negative) Ur Leukocyte Esterase Small H (Negative) Urine WBC 7 H (0-5) /hpf Hyaline Casts 12 H (0-2) /lpf Urine Mucus Rare H (None) /hpf 10/27/21 10/27/21 10/27/21 Range/Units 06:15 06:19 07:22 RBC 3.81 L (4.10-5.20) X 10*6/uL Hgb 10.8 L (12.0-15.0) g/dL Hct 36.5 L (37.2-46.3) % MCHC 29.6 L (32.0-37.0) g/dL RDW 16.0 H (11.5-14.5) % Immature Gran # 0.06 H (0.00-0.04) X 10*3/uL Chloride 93 L (96-109) mmol/L Carbon Dioxide 32.2 H (20.0-27.5) mmol/L Creatinine 1.8 H (0.6-1.5) mg/dL Est GFR (CKD-EPI)AfAm 30.3 L (60.0-200.0) Est GFR (CKD-EPI)NonAf 26.1 L (60.0-200.0) BUN/Creatinine Ratio 9.66 L (12.00-20.00) Ratio Glucose 160 H (70-110) mg/dL POC Glucose (mg/dL) 183 H (75-99) mg/dL Magnesium 3.1 H (1.5-2.4) mg/dL Urine Protein (Negative) Ur Leukocyte Esterase (Negative) Urine WBC (0-5) /hpf Hyaline Casts (0-2) /lpf Urine Mucus (None) /hpf 10/27/21 Range/Units 11:57 RBC (4.10-5.20) X 10*6/uL Hgb (12.0-15.0) g/dL Hct (37.2-46.3) % MCHC (32.0-37.0) g/dL RDW (11.5-14.5) % Immature Gran # (0.00-0.04) X 10*3/uL Chloride (96-109) mmol/L Carbon Dioxide (20.0-27.5) mmol/L Creatinine (0.6-1.5) mg/dL Est GFR (CKD-EPI)AfAm (60.0-200.0) Est GFR (CKD-EPI)NonAf (60.0-200.0) BUN/Creatinine Ratio (12.00-20.00) Ratio Glucose (70-110) mg/dL POC Glucose (mg/dL) 177 H (75-99) mg/dL Magnesium (1.5-2.4) mg/dL Urine Protein (Negative) Ur Leukocyte Esterase (Negative) Urine WBC (0-5) /hpf Hyaline Casts (0-2) /lpf Urine Mucus (None) /hpf Microbiology - Last 24 Hours (Table) 10/26/21 00:42 Blood Culture - Preliminary Blood No Growth after 24 hours 10/25/21 23:00 Blood Culture - Preliminary Blood No Growth after 24 hours 10/25/21 23:15 Blood Culture - Preliminary Blood No Growth after 24 hours Assessment and Plan (1) UTI (urinary tract infection) Current Visit: Yes Status: Acute Code(s): N39.0 - URINARY TRACT INFECTION, SITE NOT SPECIFIED SNOMED Code(s): 24974416 Plan: 1patient with a history of recurrent UTI with recent urine culture positive for Enterococcus faecium and the patient seem to have failed oral Zyvox therapy because of GI side effect. 2repeat urine culture are currently pending. 3ultrasound of the kidneys was negative for any structural abnormality 4vancomycin pharmacy to dose target trough of 15 while watching kidney function and vancomycin trough closely Time with Patient: Less than 30
[2021-10-27] MEDS ORDERED: SODIUM CHLORIDE 0.9% IVPB SCH (23:00)
[2021-10-27] MEDS ORDERED: GENTAMICIN IVPB SCH (23:00)
[2021-10-28] MEDS: LEVOTHYROXINE 125 MCG TAB PO SCH (05:48)
[2021-10-28] MEDS: HYDROcodone/APAP 7.5-325MG 1 EACH TAB PO PRN ×2 (05:49→20:20)
[2021-10-28 07:11] LABS: Glucose,Whole Blood 173 mg/dL (75-99)
[2021-10-28 07:30] LABS: African American GFR (CKD) 28 (>60 ml/min/1.73 sqM); Anion Gap 1 mmol/L; Blood Urea Nitrogen 27 mg/dL (7-17); Carbon Dioxide 34 mmol/L (22-30); Chloride 95 mmol/L (98-107); Glucose 152 mg/dL (74-99); Non-African American GFR(CKD) 25 (>60 ml/min/1.73 sqM); Potassium 4.9 mmol/L (3.5-5.1); Sodium 130 mmol/L (137-145)
[2021-10-28] MEDS: PANTOPRAZOLE 40 MG TABLET PO SCH (08:13)
[2021-10-28] MEDS: FUROSEMIDE 40 MG TAB PO SCH ×2 (08:13→16:02)
[2021-10-28] MEDS: cloNIDine HCL 0.1 MG TAB PO SCH ×2 (08:13→20:42)
[2021-10-28] MEDS: amLODIPine 10 MG TAB PO SCH (08:14)
[2021-10-28] MEDS: CALCIUM CARB-VIT D 500 MG-5 MCG TAB PO SCH ×3 (08:14→17:17)
[2021-10-28] MEDS: SPIRONOLACTONE 25 MG TAB PO SCH (08:14)
[2021-10-28] MEDS: INSULIN ASPART (NovoLOG) 100 UNIT/ML VIAL SQ SCH ×4 (08:14→20:42)
[2021-10-28] MEDS: ZINC SULFATE 220 MG CAP PO SCH (08:14)
[2021-10-28] MEDS: ONDANSETRON ODT 4 MG TAB PO SCH ×3 (08:14→20:21)
[2021-10-28] MEDS: carvediloL 12.5 MG TAB PO SCH ×2 (08:14→20:22)
[2021-10-28] MEDS: hydrALAZINE HCL 10 MG TAB PO SCH ×2 (08:14→20:22)
[2021-10-28] MEDS: MULTIVITAMINS, THERA 1 EACH TAB PO SCH (08:14)
[2021-10-28] MEDS: ASCORBIC ACID 500 MG TAB PO SCH (08:14)
[2021-10-28] MEDS: APIXABAN 2.5 MG TABLET PO SCH ×2 (08:14→20:21)
[2021-10-28] MEDS: LACTOBACILLUS ACIDOPH & BULGAR 1 EACH PACKET PO SCH (08:19)
[2021-10-28] MEDS: SYMBICORT 160-4.5 MCG INHALER INHALATION SCH ×2 (08:20→21:05)
[2021-10-28] MEDS: IPRATROPIUM-ALBUTEROL 3 ML NEB INHALATION SCH ×4 (08:20→21:05)
[2021-10-28 08:31] LABS: C Reactive Protein 2.5 mg/dL (<1.0)
[2021-10-28 08:33] LABS: Vancomycin,Random 26.9 ug/mL
[2021-10-28 09:23] LABS: Basophils # (A) 0.05 X 10*3/uL (0.00-0.10); Basophils % (A) 0.5 %; Eosinophils # (A) 0.22 X 10*3/uL (0.04-0.35); Eosinophils % (A) 2.3 %; HCT 33.1 % (37.2-46.3); HGB 10.1 g/dL (12.0-15.0); Immature Grans, Automated 0.6 %; Lymphocytes # (A) 1.68 X 10*3/uL (0.90-5.00); Lymphocytes % (A) 17.9 %; MCH 29.1 pg (27.0-32.0); MCHC 30.5 g/dL (32.0-37.0); MCV 95.4 fL (80.0-97.0); Mean Platelet Volume 10.1 fL (9.5-12.2); Monocytes # (A) 0.76 X 10*3/uL (0.20-1.00); Monocytes % (A) 8.1 %; NRBC Per 100 WBC 0 /100 WBCS (0.0-0.0); Neutrophils # (A) 6.61 X 10*3/uL (1.80-7.70); Neutrophils % (A) 70.6 %; Platelet Count 249 X 10*3/uL (140-440); RBC 3.47 X 10*6/uL (4.10-5.20); RDW 15.9 % (11.5-14.5); WBC 9.38 X 10*3/uL (4.50-10.00)
[2021-10-28] MEDS: SODIUM CHLORIDE 0.9% 1,000 ML IV SCH (09:56)
[2021-10-28 11:59] LABS: Glucose,Whole Blood 176 mg/dL (75-99)
--- NOTE | 2021-10-28 15:57 | P.NPCON ---
History of Present Illness - Reason for Consult acute renal failure - History of Present Illness Patient is a 81-year-old female with history of COPD, PE. Patient was admitted to the hospital with complaints of shortness of breath, increased fatigue. Patient also had abdominal pain. Blood pressure was severely elevated at the time of admission at 222/111 mmHg. Patient states recently she was started on steroids and has had increased blood sugars and blood pressures since then. Patient denies any history of kidney diseases Serum creatinine was 0.8 on admission and increased to 1.8 yesterday and to date is at 1.87 Patient was maintained on gentamicin and vancomycin. Vancomycin level today was 26.9. These are both discontinued now. Patient has been voiding. Blood pressure now that are controlled with systolic ranging between 150 and 1 22 mmHg No NSAIDs or IV contrast noted. Review of Systems As per HPI, other systems negative Past Medical History Past Medical History: Asthma, Cancer, Heart Failure, COPD, GERD/Reflux, Hype rlipidemia, Hypertension, Osteoarthritis (OA), Pneumonia, Pulmonary Embolus (PE), Rheumatoid Arthritis (RA), Sleep Apnea/CPAP/BIPAP, Thyroid Disorder Additional Past Medical History / Comment(s): COPD/asthma, chronic cough, hypothyroidism, history of basal cell carcinoma of the skin resected, history of melanoma of the skin involving the back, resected, history of diverti culosis/diverticulitis, history of fibrocystic disease, obstructive sleep apnea can sleep with the CPAP, varicose veins in lower extremities, hypothyroidism, covid 3-4 weeks ago. History of Any Multi-Drug Resistant Organisms: None Reported Past Surgical History: Bladder Surgery, Bowel Resection, Cholecystectomy, Heart Catheterization, Hernia Repair, Hysterectomy, Joint Replacement, Orthopedic Surgery Additional Past Surgical History / Comment(s): LEFT KNEE REPLACED, PARTIAL THYROIDECTOMY,HIATAL HERNIA REPAIR 07/2013, ABDOMINAL HERNIA REPAIR,MULTIPLE SKIN LESIONS-PT STATED HAS HAS BASAL,SQUAMOUS AND MELANOMA SKIN CA ( NECK,RT UPPER & LOWER THIGH,LT ARM,RT ARM, face, back-melanoma)SKIN GRAFTS TO VINOD.LEGS- LT EAR-LT MIDDLE FINGER,ACHILLES TENDON surgery. RT OVARY 1 TUBE REMOVED, SIGMOID RESECTION D/T BOWEL OBSTRUCTION,RT LITLE FINGER AMP, Past Anesthesia/Blood Transfusion Reactions: Previous Problems w/ Anesthesia, Motion Sickness, Postoperative Nausea & Vomiting (PONV) Additional Past Anesthesia/Blood Transfusion Reaction / Comment(s): STATES "HAS HAD SWELLING TO FACE,HANDS,ARMS AND SKIN TURNS "BEET RED"WITH ANESTHESIA-with IV sedation. states no problems with last surgery at [facility] 01/2017-anesthesia records on chart Past Psychological History: Anxiety Smoking Status: Former smoker Past Alcohol Use History: None Reported Past Drug Use History: None Reported - Past Family History Mother Family Medical History: Diabetes Mellitus Additional Family Medical History / Comment(s): HEART PROBLEMS Sister(s) Family Medical History: Diabetes Mellitus, Myocardial Infarction ([place]) Additional Family Medical History / Comment(s): EMPHYSEMA Father Family Medical History: Cancer Additional Family Medical History / Comment(s): LUNG CA. Medications and Allergies Home Medications Medication Instructions Recorded Confirmed Type Levothyroxine Sodium [Synthroid] 125 mcg PO DAILY@0700 10/18/20 10/25/21 History amLODIPine [Norvasc] 10 mg PO DAILY@0700 10/18/20 10/25/21 History Sertraline [Zoloft] 50 mg PO HS@19006/03/21 10/25/21 History cloNIDine HCL [Catapres] 0.3 mg PO BID@0700,19006/03/21 10/25/21 History Docusate [Colace] 400 mg PO HS@1900 06/29/21 10/25/21 History Furosemide [Lasix] 40 mg PO BID@0700,19006/29/21 10/25/21 History Mirtazapine [Remeron] 15 mg PO HS@1900 06/29/21 10/25/21 History Multivit-Min/Iron/Folic/Lutein 1 tab PO DAILY@0700 07/10/21 10/25/21 History [Centrum Silver Women Tablet] Simvastatin 40 mg PO HS@1900 07/10/21 10/25/21 History SILVER sulfADIAZINE Cream 1 applic TOPICAL BID@0700,1900 07/27/21 10/25/21 History [Silvadene 1% Cream] Acetaminophen [Tylenol] 500 - 1,000 mg PO Q6H PRN 08/26/21 10/25/21 History Black Elderberry 2000mg Capsule 4,000 mg PO BID@0700,1900 08/26/21 10/25/21 History Calcium Carbonate [Tums] 1,000 - 2,000 mg PO DAILY PRN 08/26/21 10/25/21 History Carvedilol [Coreg] 25 mg PO BID@0700,1900 08/26/21 10/25/21 History Guaifenesin/Dextromethorphan 20 ml PO DIRECTED PRN 08/26/21 10/25/21 History [Robitussin Cough-Chest Dm Liq] HYDROcodone/APAP 7.5-325MG [[place] 1 tab PO Q6H PRN 08/26/21 10/25/21 History 7.5-325] Lansoprazole [Prevacid] 30 mg PO DAILY@0700 08/26/21 10/25/21 History Spironolactone 25 mg PO DAILY@0700 08/26/21 10/25/21 History Zolpidem Tartrate [Ambien] 5 mg PO HS PRN 08/26/21 10/25/21 History Allergy Relief 50 mg PO BID@0700,1900 09/25/21 10/25/21 History Ascorbic Acid [Vitamin C] 500 mg PO DAILY@0709/25/21 10/25/21 History Cholecalciferol [Vitamin D3 (25 25 mcg PO DAILY@0700 09/25/21 10/25/21 History Mcg = 1000 Iu)] Colon Health Probiotic 1 cap PO DAILY@0700 09/25/21 10/25/21 History Ipratropium-Albuterol Nebulize 3 ml INHALATION RT-QID 09/25/21 10/25/21 History [Duoneb 0.5 mg-3 mg/3 ml Soln] Zinc 50 mg PO DAILY@0700 09/25/21 10/25/21 History guaiFENesin [Mucinex] 1,200 mg PO Q12H PRN 09/25/21 10/25/21 History Budesonide-Formot 160-4.5 Mcg 2 puff INHALATION RT-BID 30 Days 09/27/21 10/25/21 Rx [Symbicort 160-4.5 Mcg Inhaler] #8 gm Apixaban [Eliquis] 5 mg PO BID 10/25/21 10/25/21 History Levofloxacin [Levaquin] 500 mg PO DAILY@0800 10/25/21 10/25/21 History Menthol [[place]] 7.5 mg MM DIRECTED PRN 10/25/21 10/25/21 History Ondansetron Odt [Zofran Odt] 4 mg PO TID@0800,1600,2000 10/25/21 10/25/21 History Ondansetron [Zofran] 4 mg PO Q8HR PRN 10/25/21 10/25/21 History Quercetin Bromelain Caps 2 capsule PO DAILY@0700 10/25/21 10/25/21 History Allergies Allergy/AdvReac Type Severity Reaction Status Date / Time onion Allergy Unknown Verified 10/25/21 21:54 adhesive AdvReac SKIN Verified 10/25/21 21:54 REDDENS & BLISTERS- PAPER TAPE OKAY aspirin AdvReac STOMACH Verified 10/25/21 21:54 HERRERA azithromycin [From Zithromax] AdvReac Nausea & Verified 10/25/21 21:54 Vomiting lactose AdvReac Nausea Verified 10/25/21 21:54 meperidine HCl [From Demerol] AdvReac Nausea & Verified 10/25/21 21:54 Vomiting morphine AdvReac Nausea & Verified 10/25/21 21:54 Vomiting Sulfa (Sulfonamide AdvReac Nausea & Verified 10/25/21 21:54 Antibiotics) Vomiting tree and shrub pollen AdvReac Cough Verified 10/25/21 21:54 anesthesia Allergy facial/arms/hands Uncoded 10/25/21 21:54 swelling,skin"turns beet red", nausea DISSOLVING SUTURES AdvReac INFECTION Uncoded 10/25/21 19:35 Physical Exam Vitals: Vital Signs Temp Pulse Pulse Resp BP Pulse Ox 10/28/21 12:03 72 10/28/21 11:54 72 10/28/21 08:32 71 10/28/21 08:22 71 91 L 10/28/21 08:00 98.7 F 66 16 171/64 91 L 10/28/21 03:25 98.1 F 60 16 122/70 97 10/27/21 20:58 78 10/27/21 20:47 76 10/27/21 20:00 97.8 F 63 16 144/79 95 10/27/21 15:07 77 16 10/27/21 14:58 78 16 Intake and Output 10/28/21 10/28/21 10/28/21 06:59 14:59 22:59 Intake Total Balance Intake: Intake, IV Titration Amount Sodium Chloride 0.9% 1, 000 ml @ 75 mls/hr IV . [id number] [facility] Rx#:[id number] Other: Voiding Method Toilet Patient is comfortable awake. She is not in any acute distress. Alert oriented 3. Examination of the heart S1 and S2 Examination lungs bilateral breath sounds are heard Abdomen is soft nontender obese Examination lower extremity shows chronic skin changes chronic edema 2+ bilaterally PHOTOGRAPHIC TECHNICIAN exam grossly intact Results - Lab Results Most recent lab results Calcium 8.0 mg/dL (8.4-10.2) L 10/28/21 06:49 Magnesium 3.1 mg/dL (1.5-2.4) H 10/27/21 06:15 10/28/21 06:49 10/28/21 06:49 Assessment and Plan Assessment: 1. Acute kidney injury, nonoliguric, secondary to fluctuation in blood pressure as well as vancomycin and possibly just gentamicin as well. Repeat labs in a.m. UA was quite benign. Ultrasound could not visualize the left kidney. No hydronephrosis noted on right kidney. 2. Volume overload, currently maintained on oral diuretics which I will continue 3. Enterococcus urinary tract infection as of 10/21/2021 currently maintained on daptomycin. Being followed by ID 4. History of multiple abdominal surgeries and bowel obstruction 5. History of rheumatoid arthritis Plan: Continue current dose of Lasix Continue current antihypertensive regimen Repeat labs in a.m. Avoid IV fluids
[2021-10-28 16:54] LABS: Glucose,Whole Blood 188 mg/dL (75-99)
[2021-10-28 18:37] LABS: Appearance,Urine Clear (Clear); Bacteria,Urine Rare /hpf; Bilirubin,Urine Negative (Negative); Blood,Urine Negative (Negative); Color,Urine Yellow; Glucose,Urine (UA) Negative (Negative); Hyaline Casts,Urine 6 /lpf (0-2); Ketones,Urine Negative (Negative); Leukocyte Esterase,Urine Small (Negative); Mucus,Urine Rare /hpf; Nitrite,Urine Negative (Negative); PH, Urine 5.5 (5.0-8.0); Protein,Urine Negative (Negative); RBC,Urine 1 /hpf (0-5); Specific Gravity,Urine 1.008 (1.001-1.035); Squamous Epithelial Cell,Urine 1 /hpf (0-4); Urobilinogen,Urine <2.0 mg/dL (<2.0); WBC,Urine 3 /hpf (0-5)
[2021-10-28 20:18] LABS: Glucose,Whole Blood 179 mg/dL (75-99)
[2021-10-28] MEDS: DOCUSATE 100 MG CAP PO SCH (20:20)
[2021-10-28] MEDS: SERTRALINE 50 MG TAB PO SCH (20:21)
[2021-10-28] MEDS: MIRTAZAPINE 15 MG TAB PO SCH (20:22)
--- NOTE | 2021-10-29 00:07 | P.PN ---
Subjective This is a pleasant 81 years old female with multiple visits to the emergency room and she was recently hospitalized as inpatient last month for acute COPD exacerbation and found to have small nonocclusive pulmonary emboli of the lingula and currently she is on Eliquis,Patient also has history of multiple abdominal surgeries and prior history of bowel obstruction requiring She presents this time with nausea vomiting, she was recently started on antibiotic for UTI, and on admission she was hypertensive 222/111 She was recently visited the emergency room on 10/21 for abdominal pain, At that time CT of the abdomen and pelvis: No acute process seen Patient says that she has pain in the left flank area yesterday she was sitting at her assisted living home where she felt warm nauseated and vomited 3 times with no blood, since that she's been complaining of from this pain in her left flank area. Patient complaining of from constipation, she had a suppository followed by large bowel movement. Bladder scan was checked and it was 112. She denies smoking, alcohol or illicit drugs Patient is unaware she is diabetic, however her hemoglobin A1c was elevated 8.4% recently. Currently patient is hemodynamically stable, blood pressure improved 168/80, patient requiring 5 L of oxygen via nasal cannula to keep saturation at 96% (which is her baseline, on September also she was on 5 L oxygen via nasal cannula) CBC is unremarkable, BMP showed creatinine 1.1 which is baseline. Sodium 136. Liver enzymes elevated. TSH slightly up 5.01 but normal free T4 1 0.2. Chest x-ray: Mild bibasilar opacity, probably atelectasis EKG: Normal sinus rhythm at [address]-T changes and QTC 417. Urinalysis from 10/21 showing evidence of infection with large leukocyte esterase and WBCs 30 which is elevated. Urine culture is growing resistant enterococcus faecium In the emergency room she received Benadryl, gentamicin, [place] 7.5 and feculent Hemoglobin A1c was elevated on 09/27/2011 at 8.4 10/27/2021 Patient nausea vomiting stopped, she is awake and alert, she still have meddle back pain and left side chest pain since she fell about 2 weeks ago. Rib x-rays negative for fracture Thoracic x-ray showing osteoporotic multiple compression fractures with every 4 to deformity without change compared to recent exam. There is progression of the kyphosis compared to old chest x-ray of the 07/27/2021 No dysuria or urgency. She still been treated for UTI enterococcus become with IV vancomycin however her creatinine went up today to 1.8, Bladder scan showing 150-200 mL only, urine analysis showed trace protein, small leukocyte esterase. Patient already received IV vancomycin this morning, discussed with staff to check with pharmacy about dosing in view of worsening kidney function. Also other medications are checked we'll try to avoid nephrotoxic medication, Aldactone was held, Remeron and Eliquis ptosis woke up and to have. We'll start patient on normal saline at 75 mm/h No evidence of hypotension episodes actually her blood pressure on the high side 133/76, we'll start small dose of hydralazine 10 mg twice a day. Nephrology team were consulted patient had very good large bowel movement after suppository yesterday 10/28/2021 Patient admitted for nausea vomiting and UTI secondary to arterial because faecalis. Also she fell 2 weeks ago and she has tenderness in the left lateral chest wall secondary to multiple compression fractures which were ongoing with osteoporosis. Patient was started on calcium and vitamin D. Orthopedic team consult. May benefit from possible brace. Also patient new-onset diabetes with hemoglobin A1c 8.4%, she was started on insulin sliding scale and check for his work 2-3 units with meals. Her creatinine went up 1.1-1.8 yesterday at 1.7 today. Antibiotics were adjusted. Vancomycin attempted to daptomycin, random vancomycin level is 26.9 which is within the range. Patient Eliquis dose cut in half because of worsening kidney function as well as Remeron dose lower to 50 mg down to 7.5 mg. IV fluids were discontinued with the patient is On oral Lasix 40 mg twice a day. Oxygen at baseline of 5 L/m. Objective - Vital Signs Vital signs: Vital Signs Temp 98.7 F 10/28/21 08:00 Pulse 71 10/28/21 08:32 Resp 16 10/28/21 08:00 BP 171/64 10/28/21 08:00 Pulse Ox 91 L 10/28/21 08:22 Intake & Output 10/27/21 10/28/21 10/28/21 17:59 06:59 18:59 Intake Total Balance Intake: Intake, IV Titration Amount Sodium Chloride 0.9% 1, 000 ml @ 75 mls/hr IV . [id number] [facility] Rx#:[id number] Other: Voiding Method Toilet - Exam GENERAL: The patient is alert and oriented x3, not in any acute distress. Obese HEENT: Pupils are round and equally reacting to light. EOMI. No scleral icterus. No conjunctival pallor. Normocephalic, atraumatic. No pharyngeal erythema. No thyromegaly. CARDIOVASCULAR: S1 and S2 present. No murmurs, rubs, or gallops. -PULMONARY: Chest is clear to auscultation, no wheezing or crackles. Left upper lateral chest wall tenderness, mild ABDOMEN: Soft, nontender, nondistended, normoactive bowel sounds. No palpable organomegaly. MUSCULOSKELETAL: No joint swelling or deformity. EXTREMITIES: No cyanosis, clubbing, or pedal edema. NEUROLOGICAL: Gross neurological examination did not reveal any focal deficits. SKIN: No rashes. no petechiae. - Labs CBC & Chem 7: 10/28/21 06:49 10/28/21 06:49 Labs: Abnormal Lab Results - Last 24 Hours (Table) 10/27/21 10/27/21 10/27/21 Range/Units 11:57 16:58 21:10 RBC (4.10-5.20) X 10*6/uL Hgb (12.0-15.0) g/dL Hct (37.2-46.3) % MCHC (32.0-37.0) g/dL RDW (11.5-14.5) % Immature Gran # (0.00-0.04) X 10*3/uL Sodium (137-145) mmol/L Chloride (98-107) mmol/L Carbon Dioxide (22-30) mmol/L BUN (7-17) mg/dL Creatinine (0.52-1.04) mg/dL Glucose (74-99) mg/dL POC Glucose (mg/dL) 177 H 182 H 214 H (75-99) mg/dL Calcium (8.4-10.2) mg/dL C-Reactive Protein (<1.0) mg/dL 10/28/21 10/28/21 10/28/21 Range/Units 06:44 06:49 06:49 RBC 3.47 L (4.10-5.20) X 10*6/uL Hgb 10.1 L (12.0-15.0) g/dL Hct 33.1 L (37.2-46.3) % MCHC 30.5 L (32.0-37.0) g/dL RDW 15.9 H (11.5-14.5) % Immature Gran # 0.06 H (0.00-0.04) X 10*3/uL Sodium 130 L (137-145) mmol/L Chloride 95 L (98-107) mmol/L Carbon Dioxide 34 H (22-30) mmol/L BUN 27 H (7-17) mg/dL Creatinine 1.87 H (0.52-1.04) mg/dL Glucose 152 H (74-99) mg/dL POC Glucose (mg/dL) (75-99) mg/dL Calcium 8.0 L (8.4-10.2) mg/dL C-Reactive Protein 2.5 H (<1.0) mg/dL 10/28/21 Range/Units 07:10 RBC (4.10-5.20) X 10*6/uL Hgb (12.0-15.0) g/dL Hct (37.2-46.3) % MCHC (32.0-37.0) g/dL RDW (11.5-14.5) % Immature Gran # (0.00-0.04) X 10*3/uL Sodium (137-145) mmol/L Chloride (98-107) mmol/L Carbon Dioxide (22-30) mmol/L BUN (7-17) mg/dL Creatinine (0.52-1.04) mg/dL Glucose (74-99) mg/dL POC Glucose (mg/dL) 173 H (75-99) mg/dL Calcium (8.4-10.2) mg/dL C-Reactive Protein (<1.0) mg/dL Microbiology - Last 24 Hours (Table) 10/26/21 00:42 Blood Culture - Preliminary Blood No Growth after 48 hours 10/25/21 23:15 Blood Culture - Preliminary Blood No Growth after 48 hours 10/25/21 23:00 Blood Culture - Preliminary Blood No Growth after 48 hours Assessment and Plan Assessment: acute urinary tract infection, With continued ongoing infection and urine culture growing enterococcus faecium (The same organism detected in the urine, last year) Acute kidney injury Nausea vomiting , improving Possible new onset diabetes mellitus with hemoglobin A1c 8.4%, repeat the test Hypertension with urgency, present on admission, currently improved Osteoporosis with multiple compression fracture deformity of the thoracic spine vertebrae, with back pain secondary to fall 2 weeks prior to admission COPD, not acute exacerbation. With chronic hypoxic respiratory failure 4-5 L/m at home Recent history of small nonocclusive PE, currently on Eliquis, failed warfarin for the same history of PE Evidence of chronic kidney disease, stage III history of multiple abdominal surgeries and prior history of bowel obstruction requiring History of rheumatoid arthritis History of diverticular disease History of GERD Hypothyroidism Chronic back pain on [place] 7.5 History of coronary artery disease. Plan: This is a pleasant 81 years old female who presents with nausea vomiting. Discontinue normal saline, keep oral Lasix. Nephrology consult is appreciated. Patient currently is on half dose of Remeron and Eliquis because for some kidney function, this may be increased if creatinine improves as well. Follow-up with infectious disease team. Patient is currently on IV daptomycin Currently she is on Coreg 25 mg, clonidine 0.3 mg twice a day, Lasix 40 mg twice a day, and Aldactone 25 mg daily. She is also on Norvasc 10 mg and keep monitoring blood pressure . , also she is started on hydralazine 10 mg twice a day Start the patient on NovoLog 2 units with meals. Continue on insulin sliding scale. Start calcium and vitamin D. Orthopedic team consult Labs and medication were reviewed.. Continue same treatment. Continue with symptomatic treatment. Resume home medication. Monitor lytes and vitals. DVT and GI prophylaxis. Further recommendations depends on the clinical course of the patient DVT prophylaxis: Eliquis GI Prophylaxis: Ppi PT/OT: Pending Prognosis is guarded
[2021-10-29] MEDS: LEVOTHYROXINE 125 MCG TAB PO SCH (06:02)
[2021-10-29] MEDS: HYDROcodone/APAP 7.5-325MG 1 EACH TAB PO PRN ×2 (06:02→19:45)
[2021-10-29] MEDS: METOCLOPRAMIDE 5 MG/ML 2 ML VIAL IVP PRN (06:02)
[2021-10-29 06:55] LABS: Glucose,Whole Blood 160 mg/dL (75-99)
[2021-10-29 08:07] LABS: African American GFR (CKD) 29 (>60 ml/min/1.73 sqM); Anion Gap 6 mmol/L; Blood Urea Nitrogen 26 mg/dL (7-17); C Reactive Protein 2.6 mg/dL (<1.0); Calcium 8.9 mg/dL (8.4-10.2); Carbon Dioxide 35 mmol/L (22-30); Chloride 91 mmol/L (98-107); Glucose 150 mg/dL (74-99); Magnesium 2.5 mg/dL (1.6-2.3); Non-African American GFR(CKD) 25 (>60 ml/min/1.73 sqM); Potassium 4.3 mmol/L (3.5-5.1); Sodium 132 mmol/L (137-145)
[2021-10-29 08:10] LABS: Vancomycin,Random 18.9 ug/mL
[2021-10-29] MEDS: IPRATROPIUM-ALBUTEROL 3 ML NEB INHALATION SCH ×4 (09:04→19:14)
[2021-10-29] MEDS: SYMBICORT 160-4.5 MCG INHALER INHALATION SCH ×2 (09:04→19:14)
[2021-10-29 09:49] LABS: Basophils # (A) 0.04 X 10*3/uL (0.00-0.10); Basophils % (A) 0.4 %; Eosinophils % (A) 2.2 %; HCT 34.2 % (37.2-46.3); HGB 10.5 g/dL (12.0-15.0); Immature Grans, Automated 0.9 %; Lymphocytes # (A) 1.69 X 10*3/uL (0.90-5.00); Lymphocytes % (A) 18.3 %; MCH 28.8 pg (27.0-32.0); MCHC 30.7 g/dL (32.0-37.0); MCV 93.7 fL (80.0-97.0); Mean Platelet Volume 10.2 fL (9.5-12.2); Monocytes # (A) 0.81 X 10*3/uL (0.20-1.00); Monocytes % (A) 8.8 %; NRBC Per 100 WBC 0 /100 WBCS (0.0-0.0); Neutrophils # (A) 6.43 X 10*3/uL (1.80-7.70); Neutrophils % (A) 69.4 %; Platelet Count 261 X 10*3/uL (140-440); RBC 3.65 X 10*6/uL (4.10-5.20); RDW 15.8 % (11.5-14.5); WBC 9.25 X 10*3/uL (4.50-10.00)
[2021-10-29] MEDS: APIXABAN 2.5 MG TABLET PO SCH ×2 (10:05→21:27)
[2021-10-29] MEDS: FUROSEMIDE 40 MG TAB PO SCH ×2 (10:05→15:23)
[2021-10-29] MEDS: ASCORBIC ACID 500 MG TAB PO SCH (10:05)
[2021-10-29] MEDS: CALCIUM CARB-VIT D 500 MG-5 MCG TAB PO SCH ×3 (10:05→17:03)
[2021-10-29] MEDS: PANTOPRAZOLE 40 MG TABLET PO SCH (10:05)
[2021-10-29] MEDS: carvediloL 12.5 MG TAB PO SCH ×2 (10:06→21:27)
[2021-10-29] MEDS: ONDANSETRON ODT 4 MG TAB PO SCH ×3 (10:06→21:26)
[2021-10-29] MEDS: ZINC SULFATE 220 MG CAP PO SCH (10:06)
[2021-10-29] MEDS: SPIRONOLACTONE 25 MG TAB PO SCH (10:06)
[2021-10-29] MEDS: cloNIDine HCL 0.1 MG TAB PO SCH ×2 (10:06→21:27)
[2021-10-29] MEDS: MULTIVITAMINS, THERA 1 EACH TAB PO SCH (10:06)
[2021-10-29] MEDS: amLODIPine 10 MG TAB PO SCH (10:06)
[2021-10-29] MEDS: hydrALAZINE HCL 10 MG TAB PO SCH ×2 (10:06→21:28)
[2021-10-29] MEDS: INSULIN ASPART (NovoLOG) 100 UNIT/ML VIAL SQ SCH ×7 (10:07→21:24)
[2021-10-29] MEDS: LACTOBACILLUS ACIDOPH & BULGAR 1 EACH PACKET PO SCH (11:07)
[2021-10-29 11:42] LABS: Glucose,Whole Blood 157 mg/dL (75-99)
--- NOTE | 2021-10-29 12:30 | XR ---
EXAMINATION TYPE: XR lumbar spine 2 or 3V DATE OF EXAM: 10/29/2021 Comparison: 05/08/2021 Clinical History: 81-year-old female with pain, eval for compression fx Findings: Marked osteopenia. Cholecystectomy clips. Atherosclerotic calcifications throughout the abdominal aor ta. Lateral view shows lobulated fusiform ectasia throughout. Possible aneurysm after 3.8 cm proximal portion and 3.7 cm midportion. Hypertrophic facet arthropathy throughout with grade 1 anterolisthesis L5-S1. Trace grade 1 retrolist hesis L2-L3. Superior endplate compression injury L2 with mild retropulsion of the ventral spinal canal. This coul d contribute to a mild or moderate spinal canal stenosis. Overall 30% anterior height loss and second óscar kyphotic deformity here. Remaining vertebral body heights are maintained at this time. Impression: 1. Superior endplate fracture with anterior wedge deformity of L2 is new from 05/08/2021. 30% anterior height loss. Retropulsion into the ventral spinal canal could contribute to a mild to moderate spina l canal stenosis. 2. Facet arthropathy throughout. Grade 1 retrolisthesis L2-L3 and grade 1 anterolisthesis L5-S1. 3. Ectatic abdominal aorta. 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 Consider referral to patient's primary care physician or vascular surgery for appropriate surveill ance.
--- NOTE | 2021-10-29 12:59 | P.PN ---
Subjective Patient is seen in follow-up for acute kidney injury. Renal function stable. On oral Lasix. Good urine output. No vomiting or diarrhea. Oral intake fair. On 5 L nasal cannula. Vital signs are stable. General: Awake and alert. HEENT: Head exam is unremarkable. On nasal cannula. LUNGS: Breath sounds decreased. HEART: Rate and Rhythm are regular. ABDOMEN: Soft, no distention. EXTREMITITES: 1-2+ edema. Objective - Vital Signs Vital signs: Vital Signs Temp 98.2 F 10/29/21 07:32 Pulse 78 10/29/21 12:22 Resp 18 10/29/21 08:45 BP 178/76 10/29/21 07:32 Pulse Ox 93 L 10/29/21 07:32 Intake & Output 10/28/21 10/29/21 10/29/21 18:59 06:59 18:59 Intake Total 965 300 Balance 965 300 Intake: Intake, IV Titration 425 Amount DAPTOmycin 400 mg In 50 Sodium Chloride 0.9% 50 ml @ 100 mls/hr IVPB Q48H [facility] Rx#:[id number] Sodium Chloride 0.9% 1, 375 000 ml @ 75 mls/hr IV . [id number] [facility] Rx#:[id number] Oral 540 300 Other: Voiding Method Toilet Toilet # Voids 3 3 - Labs CBC & Chem 7: 10/29/21 07:15 10/29/21 07:15 Labs: Abnormal Lab Results - Last 24 Hours (Table) 10/28/21 10/28/21 10/28/21 Range/Units 16:53 20:17 Unknown RBC (4.10-5.20) X 10*6/uL Hgb (12.0-15.0) g/dL Hct (37.2-46.3) % MCHC (32.0-37.0) g/dL RDW (11.5-14.5) % Immature Gran # (0.00-0.04) X 10*3/uL Sodium (137-145) mmol/L Chloride (98-107) mmol/L Carbon Dioxide (22-30) mmol/L BUN (7-17) mg/dL Creatinine (0.52-1.04) mg/dL Glucose (74-99) mg/dL POC Glucose (mg/dL) 188 H 179 H (75-99) mg/dL Magnesium (1.6-2.3) mg/dL C-Reactive Protein (<1.0) mg/dL Ur Leukocyte Esterase Small H (Negative) Urine Bacteria Rare H (None) /hpf Hyaline Casts 6 H (0-2) /lpf Urine Mucus Rare H (None) /hpf 10/29/21 10/29/21 10/29/21 Range/Units 06:53 07:15 07:15 RBC 3.65 L (4.10-5.20) X 10*6/uL Hgb 10.5 L (12.0-15.0) g/dL Hct 34.2 L (37.2-46.3) % MCHC 30.7 L (32.0-37.0) g/dL RDW 15.8 H (11.5-14.5) % Immature Gran # 0.08 H (0.00-0.04) X 10*3/uL Sodium 132 L (137-145) mmol/L Chloride 91 L (98-107) mmol/L Carbon Dioxide 35 H (22-30) mmol/L BUN 26 H (7-17) mg/dL Creatinine 1.86 H (0.52-1.04) mg/dL Glucose 150 H (74-99) mg/dL POC Glucose (mg/dL) 160 H (75-99) mg/dL Magnesium 2.5 H (1.6-2.3) mg/dL C-Reactive Protein 2.6 H (<1.0) mg/dL Ur Leukocyte Esterase (Negative) Urine Bacteria (None) /hpf Hyaline Casts (0-2) /lpf Urine Mucus (None) /hpf 10/29/21 Range/Units 11:41 RBC (4.10-5.20) X 10*6/uL Hgb (12.0-15.0) g/dL Hct (37.2-46.3) % MCHC (32.0-37.0) g/dL RDW (11.5-14.5) % Immature Gran # (0.00-0.04) X 10*3/uL Sodium (137-145) mmol/L Chloride (98-107) mmol/L Carbon Dioxide (22-30) mmol/L BUN (7-17) mg/dL Creatinine (0.52-1.04) mg/dL Glucose (74-99) mg/dL POC Glucose (mg/dL) 157 H (75-99) mg/dL Magnesium (1.6-2.3) mg/dL C-Reactive Protein (<1.0) mg/dL Ur Leukocyte Esterase (Negative) Urine Bacteria (None) /hpf Hyaline Casts (0-2) /lpf Urine Mucus (None) /hpf Microbiology - Last 24 Hours (Table) 10/26/21 00:42 Blood Culture - Preliminary Blood No Growth after 72 hours 10/25/21 23:15 Blood Culture - Preliminary Blood No Growth after 72 hours 10/25/21 23:00 Blood Culture - Preliminary Blood No Growth after 72 hours Assessment and Plan Plan: Assessment: 1. Acute kidney injury secondary to ATN secondary to hemodynamic instability as well as vancomycin/gentamicin use. UA benign. No hydronephrosis noted on CAT scan done 10/21/2021.. Baseline creatinine near 1. Stable at 1.86 today. 2. Enterococcus UTI on antibiotics. ID following. 3. Volume overload. 4. History of rheumatoid arthritis. 5. Diabetes. 6. Benign hypertension. Stable. Plan: Maintain oral Lasix. 1500 mL fluid resection. Encouraged oral intake. Avoid nephrotoxins. Continue to monitor renal function and urine output
--- NOTE | 2021-10-29 13:15 | P.CNOR ---
History of Present Illness - [facility] Consult date: 10/29/21 Consult reason: fracture (L2 compression fracture) History of present illness: This is an 81-year-old female with history of multiple medical comorbidities including obesity, COPD, heart failure, kidney disease and current urinary tract infection. She is admitted to the hospital with nausea and vomiting. She has complaint of flank pain. She was having some back pain so thoracic x-rays were obtained which showed multiple compression deformities. We were consulted for orthopedic evaluation. Past Medical History Past Medical History: Asthma, Cancer, Heart Failure, COPD, GERD/Reflux, Hyperlipidemia, Hypertension, Osteoarthritis (OA), Pneumonia, Pulmonary Embolus (PE), Rheumatoid Arthritis (RA), Sleep Apnea/CPAP/BIPAP, Thyroid Disorder Additional Past Medical History / Comment(s): COPD/asthma, chronic cough, hypothyroidism, history of basal cell carcinoma of the skin resected, history of melanoma of the skin involving the back, resected, history of diverticulosis/diverticulitis, history of fibrocystic disease, obstructive sleep apnea can sleep with the CPAP, varicose veins in lower extremities, hypothyroidism, covid 3-4 weeks ago. History of Any Multi-Drug Resistant Organisms: None Reported Past Surgical History: Bladder Surgery, Bowel Resection, Cholecystectomy, Heart Catheterization, Hernia Repair, Hysterectomy, Joint Replacement, Orthopedic Surgery Additional Past Surgical History / Comment(s): LEFT KNEE REPLACED, PARTIAL THYROIDECTOMY,HIATAL HERNIA REPAIR 07/2013, ABDOMINAL HERNIA REPAIR,MULTIPLE SKIN LESIONS-PT STATED HAS HAS BASAL,SQUAMOUS AND MELANOMA SKIN CA ( NECK,RT UPPER & LOWER THIGH,LT ARM,RT ARM, face, back-melanoma)SKIN GRAFTS TO VINOD.LEGS- LT EAR-LT MIDDLE FINGER,ACHILLES TENDON surgery. RT OVARY 1 TUBE REMOVED, SIGMOID RESECTION D/T BOWEL OBSTRUCTION,RT LITLE FINGER AMP, Past Anesthesia/Blood Transfusion Reactions: Previous Problems w/ Anesthesia, Motion Sickness, Postoperative Nausea & Vomiting (PONV) Additional Past Anesthesia/Blood Transfusion Reaction / Comm: STATES "HAS HAD SWELLING TO FACE,HANDS,ARMS AND SKIN TURNS "BEET RED"WITH ANESTHESIA-with IV sedation. states no problems with last surgery at [facility] 01/2017-anesthesia records on chart Past Psychological History: Anxiety Smoking Status: Former smoker Past Alcohol Use History: None Reported Past Drug Use History: None Reported - Past Family History Mother Family Medical History: Diabetes Mellitus Additional Family Medical History / Comment(s): HEART PROBLEMS Sister(s) Family Medical History: Diabetes Mellitus, Myocardial Infarction ([place]) Additional Family Medical History / Comment(s): EMPHYSEMA Father Family Medical History: Cancer Additional Family Medical History / Comment(s): LUNG CA. Medications and Allergies Home Medications Medication Instructions Recorded Confirmed Type Levothyroxine Sodium [Synthroid] 125 mcg PO DAILY@0700 10/18/20 10/25/21 History amLODIPine [Norvasc] 10 mg PO DAILY@0710/18/20 10/25/21 History Sertraline [Zoloft] 50 mg PO HS@189906/03/21 10/25/21 History cloNIDine HCL [Catapres] 0.3 mg PO BID@0700,189906/03/21 10/25/21 History Docusate [Colace] 400 mg PO HS@189906/29/21 10/25/21 History Furosemide [Lasix] 40 mg PO BID@0700,189906/29/21 10/25/21 History Mirtazapine [Remeron] 15 mg PO HS@189906/29/21 10/25/21 History Multivit-Min/Iron/Folic/Lutein 1 tab PO DAILY@0707/10/21 10/25/21 History [Centrum Silver Women Tablet] Simvastatin 40 mg PO HS@189907/10/21 10/25/21 History SILVER sulfADIAZINE Cream 1 applic TOPICAL BID@0700,189907/27/21 10/25/21 History [Silvadene 1% Cream] Acetaminophen [Tylenol] 500 - 1,000 mg PO Q6H PRN 08/26/21 10/25/21 History Black Elderberry 2000mg Capsule 4,000 mg PO BID@0700,189908/26/21 10/25/21 History Calcium Carbonate [Tums] 1,000 - 2,000 mg PO DAILY PRN 08/26/21 10/25/21 History Carvedilol [Coreg] 25 mg PO BID@0700,189908/26/21 10/25/21 History Guaifenesin/Dextromethorphan 20 ml PO DIRECTED PRN 08/26/21 10/25/21 History [Robitussin Cough-Chest Dm Liq] HYDROcodone/APAP 7.5-325MG [[place] 1 tab PO Q6H PRN 08/26/21 10/25/21 History 7.5-325] Lansoprazole [Prevacid] 30 mg PO DAILY@0700 08/26/21 10/25/21 History Spironolactone 25 mg PO DAILY@0708/26/21 10/25/21 History Zolpidem Tartrate [Ambien] 5 mg PO HS PRN 08/26/21 10/25/21 History Allergy Relief 50 mg PO BID@0700,1900 09/25/21 10/25/21 History Ascorbic Acid [Vitamin C] 500 mg PO DAILY@0709/25/21 10/25/21 History Cholecalciferol [Vitamin D3 (25 25 mcg PO DAILY@69909/25/21 10/25/21 History Mcg = 1000 Iu)] Colon Health Probiotic 1 cap PO DAILY@0709/25/21 10/25/21 History Ipratropium-Albuterol Nebulize 3 ml INHALATION RT-QID 09/25/21 10/25/21 History [Duoneb 0.5 mg-3 mg/3 ml Soln] Zinc 50 mg PO DAILY@0709/25/21 10/25/21 History guaiFENesin [Mucinex] 1,200 mg PO Q12H PRN 09/25/21 10/25/21 History Budesonide-Formot 160-4.5 Mcg 2 puff INHALATION RT-BID 30 Days 09/27/21 10/25/21 Rx [Symbicort 160-4.5 Mcg Inhaler] #8 gm Apixaban [Eliquis] 5 mg PO BID 10/25/21 10/25/21 History Levofloxacin [Levaquin] 500 mg PO DAILY@0800 10/25/21 10/25/21 History Menthol [[place]] 7.5 mg MM DIRECTED PRN 10/25/21 10/25/21 History Ondansetron Odt [Zofran Odt] 4 mg PO TID@0800,1600,199910/25/21 10/25/21 History Ondansetron [Zofran] 4 mg PO Q8HR PRN 10/25/21 10/25/21 History Quercetin Bromelain Caps 2 capsule PO DAILY@0710/25/21 10/25/21 History Allergies Allergy/AdvReac Type Severity Reaction Status Date / Time onion Allergy Unknown Verified 10/25/21 21:54 adhesive AdvReac SKIN Verified 10/25/21 21:54 REDDENS & BLISTERS- PAPER TAPE OKAY aspirin AdvReac STOMACH Verified 10/25/21 21:54 HERRERA azithromycin [From Zithromax] AdvReac Nausea & Verified 10/25/21 21:54 Vomiting lactose AdvReac Nausea Verified 10/25/21 21:54 meperidine HCl [From Demerol] AdvReac Nausea & Verified 10/25/21 21:54 Vomiting morphine AdvReac Nausea & Verified 10/25/21 21:54 Vomiting Sulfa (Sulfonamide AdvReac Nausea & Verified 10/25/21 21:54 Antibiotics) Vomiting tree and shrub pollen AdvReac Cough Verified 10/25/21 21:54 anesthesia Allergy facial/arms/hands Uncoded 10/25/21 21:54 swelling,skin"turns beet red", nausea DISSOLVING SUTURES AdvReac INFECTION Uncoded 10/25/21 19:35 Physical Examination This is a pleasant 81-year-old female in no acute distress. She is significantly short of breath on exam today. Exam of the head and neck reveal no obvious deformities. She has fairly good cervical spine motion without difficulty or pain. Exam of the upper extremities is unremarkable. She has fairly good shoulder, elbow, wrist and finger motion bilaterally. Neurovascular status to the upper extremities is intact. Exam of the thoracic and lumbar spine reveal a slight kyphotic deformity to the thoracic spine. She is nontender with palpation about the thoracic spine. She does have some tenderness to the upper lumbar spine and right paraspinal musculature. Exam of the lower extremities reveals no obvious deformity. The patient is able to lift each leg off the bed independently. She has full foot and ankle motion without difficulty or pain. No hip irritability noted. Neurovascular status to the lower extremities is intact. Results Thoracic spine x-rays show multiple anterior wedge deformities with kyphosis noted. Osteopenia noted to the vertebral bodies. X-rays of the lumbar spine reveal an L2 compression fracture which is new compared to films from April 2021. Osteopenia again noted. - Labs Labs: Abnormal Lab Results - Last 24 Hours (Table) 10/28/21 10/28/21 10/28/21 Range/Units 16:53 20:17 Unknown RBC (4.10-5.20) X 10*6/uL Hgb (12.0-15.0) g/dL Hct (37.2-46.3) % MCHC (32.0-37.0) g/dL RDW (11.5-14.5) % Immature Gran # (0.00-0.04) X 10*3/uL Sodium (137-145) mmol/L Chloride (98-107) mmol/L Carbon Dioxide (22-30) mmol/L BUN (7-17) mg/dL Creatinine (0.52-1.04) mg/dL Glucose (74-99) mg/dL POC Glucose (mg/dL) 188 H 179 H (75-99) mg/dL Magnesium (1.6-2.3) mg/dL C-Reactive Protein (<1.0) mg/dL Ur Leukocyte Esterase Small H (Negative) Urine Bacteria Rare H (None) /hpf Hyaline Casts 6 H (0-2) /lpf Urine Mucus Rare H (None) /hpf 10/29/21 10/29/21 10/29/21 Range/Units 06:53 07:15 07:15 RBC 3.65 L (4.10-5.20) X 10*6/uL Hgb 10.5 L (12.0-15.0) g/dL Hct 34.2 L (37.2-46.3) % MCHC 30.7 L (32.0-37.0) g/dL RDW 15.8 H (11.5-14.5) % Immature Gran # 0.08 H (0.00-0.04) X 10*3/uL Sodium 132 L (137-145) mmol/L Chloride 91 L (98-107) mmol/L Carbon Dioxide 35 H (22-30) mmol/L BUN 26 H (7-17) mg/dL Creatinine 1.86 H (0.52-1.04) mg/dL Glucose 150 H (74-99) mg/dL POC Glucose (mg/dL) 160 H (75-99) mg/dL Magnesium 2.5 H (1.6-2.3) mg/dL C-Reactive Protein 2.6 H (<1.0) mg/dL Ur Leukocyte Esterase (Negative) Urine Bacteria (None) /hpf Hyaline Casts (0-2) /lpf Urine Mucus (None) /hpf 10/29/21 Range/Units 11:41 RBC (4.10-5.20) X 10*6/uL Hgb (12.0-15.0) g/dL Hct (37.2-46.3) % MCHC (32.0-37.0) g/dL RDW (11.5-14.5) % Immature Gran # (0.00-0.04) X 10*3/uL Sodium (137-145) mmol/L Chloride (98-107) mmol/L Carbon Dioxide (22-30) mmol/L BUN (7-17) mg/dL Creatinine (0.52-1.04) mg/dL Glucose (74-99) mg/dL POC Glucose (mg/dL) 157 H (75-99) mg/dL Magnesium (1.6-2.3) mg/dL C-Reactive Protein (<1.0) mg/dL Ur Leukocyte Esterase (Negative) Urine Bacteria (None) /hpf Hyaline Casts (0-2) /lpf Urine Mucus (None) /hpf Microbiology - Last 24 Hours (Table) 10/26/21 00:42 Blood Culture - Preliminary Blood No Growth after 72 hours 10/25/21 23:15 Blood Culture - Preliminary Blood No Growth after 72 hours 10/25/21 23:00 Blood Culture - Preliminary Blood No Growth after 72 hours H & H 10/25/21 10/26/21 10/27/21 Range/Units 20:31 05:48 06:19 Hgb 13.0 11.9 10.8 L (11.4-16.0) gm/dL Hct 40.3 37.2 36.5 L (34.0-46.0) % 10/28/21 10/29/21 Range/Units 06:49 07:15 Hgb 10.1 L 10.5 L (11.4-16.0) gm/dL Hct 33.1 L 34.2 L (34.0-46.0) % Coagulation 10/25/21 Range/Units 20:31 INR 1.0 (<1.2) Result Diagrams: 10/29/21 07:15 10/29/21 07:15 Assessment and Plan (1) Compression fracture of L2 Current Visit: Yes Status: Acute Code(s): S32.020A - WEDGE COMPRESSION FRACTURE OF SECOND LUMBAR VERTEBRA, INIT SNOMED Code(s): 01846808976334788 (2) Nausea & vomiting Current Visit: Yes Status: Acute Code(s): R11.2 - NAUSEA WITH VOMITING, UNSPECIFIED SNOMED Code(s): 49806311 (3) UTI (urinary tract infection) Current Visit: Yes Status: Acute Code(s): N39.0 - URINARY TRACT INFECTION, SITE NOT SPECIFIED SNOMED Code(s): 31158210 Plan: Clinical and x-ray findings are discussed with the patient and nursing staff. I have reviewed the case with Dr. Peoples. He would like the patient evaluated by spine surgery. The patient is not a great candidate for bracing secondary to her pulmonary issues and body habitus. I have asked Dr. Keys to evaluate the patient.
--- NOTE | 2021-10-29 15:52 | P.CNOR ---
History of Present Illness - [facility] Consult date: 10/29/21 Requesting physician: Rachel Dixon Consult reason: fracture (Evaluate L2 fracture), low back pain History of present illness: Patient is a very pleasant 81-year-old female who is seen and examined at the bedside by myself and Dr. Star Keys. Consultation was placed for further evaluation of her L2 compression fracture deformity. Patient does admit she sustained an injury in the fall of 2020 while trying to help lift her . She states she felt her back gives out at that time and had severe pain at that time. She was not fitted with a brace. She states her chronic low back pain has slowly improved since that time. She did sustain a fall a approximately 3-4 weeks ago. She feels her low back pain is improved since that time. She is not currently expressing any significant thoracic pain. Difficulty with ambulation. She utilizes a walker to aid in ambulation. She states she does have chronic difficulty with her lower extremities. She currently resides in assisted living facility. She states she moved there when she realized she could not care for herself at home. She's currently being treated for multiple other medical diagnoses. She is known have significant COPD. She is also recently found to have a small non-occlusive pulmonary emboli and is currently on anticoagulation with Eliquis. Her past medical histories include cancer, heart failure, hyperlipidemia, hypertension, sleep apnea, thyroid disorder, and obesity. She is being seen and examined by infectious disease for treatment for a recurrent urinary tract infection. They're currently planning for vancomycin. She is been seen by nephrology for acute kidney injury. She has follow with Dr. Ramon in the outpatient setting for pain management. She states she is planning for follow-up evaluation. It is unclear whether she has an appointment already scheduled. Patient states she does not feel should be a good candidate for surgical intervention. Past Medical History Past Medical History: Asthma, Cancer, Heart Failure, COPD, GERD/Reflux, Hyperlipidemia, Hypertension, Osteoarthritis (OA), Pneumonia, Pulmonary Embolus (PE), Rheumatoid Arthritis (RA), Sleep Apnea/CPAP/BIPAP, Thyroid Disorder Additional Past Medical History / Comment(s): COPD/asthma, chronic cough, hypothyroidism, history of basal cell carcinoma of the skin resected, history of melanoma of the skin involving the back, resected, history of diverticulosis/diverticulitis, history of fibrocystic disease, obstructive sleep apnea can sleep with the CPAP, varicose veins in lower extremities, hypothyroidism, covid 3-4 weeks ago. History of Any Multi-Drug Resistant Organisms: None Reported Past Surgical History: Bladder Surgery, Bowel Resection, Cholecystectomy, Heart Catheterization, Hernia Repair, Hysterectomy, Joint Replacement, Orthopedic Surgery Additional Past Surgical History / Comment(s): LEFT KNEE REPLACED, PARTIAL THYROIDECTOMY,HIATAL HERNIA REPAIR 07/2013, ABDOMINAL HERNIA REPAIR,MULTIPLE SKIN LESIONS-PT STATED HAS HAS BASAL,SQUAMOUS AND MELANOMA SKIN CA ( NECK,RT UPPER & LOWER THIGH,LT ARM,RT ARM, face, back-melanoma)SKIN GRAFTS TO VINOD.LEGS- LT EAR-LT MIDDLE FINGER,ACHILLES TENDON surgery. RT OVARY 1 TUBE REMOVED, SIGMOID RESECTION D/T BOWEL OBSTRUCTION,RT LITLE FINGER AMP, Past Anesthesia/Blood Transfusion Reactions: Previous Problems w/ Anesthesia, Motion Sickness, Postoperative Nausea & Vomiting (PONV) Additional Past Anesthesia/Blood Transfusion Reaction / Comm: STATES "HAS HAD SWELLING TO FACE,HANDS,ARMS AND SKIN TURNS "BEET RED"WITH ANESTHESIA-with IV sedation. states no problems with last surgery at [facility] 01/2017-anesthesia records on chart Past Psychological History: Anxiety Smoking Status: Former smoker Past Alcohol Use History: None Reported Past Drug Use History: None Reported - Past Family History Mother Family Medical History: Diabetes Mellitus Additional Family Medical History / Comment(s): HEART PROBLEMS Sister(s) Family Medical History: Diabetes Mellitus, Myocardial Infarction ([place]) Additional Family Medical History / Comment(s): EMPHYSEMA Father Family Medical History: Cancer Additional Family Medical History / Comment(s): LUNG CA. Medications and Allergies Home Medications Medication Instructions Recorded Confirmed Type Levothyroxine Sodium [Synthroid] 125 mcg PO DAILY@0700 10/18/20 10/25/21 History amLODIPine [Norvasc] 10 mg PO DAILY@0700 10/18/20 10/25/21 History Sertraline [Zoloft] 50 mg PO HS@0 06/03/21 10/25/21 History cloNIDine HCL [Catapres] 0.3 mg PO BID@0700,1900 06/03/21 10/25/21 History Docusate [Colace] 400 mg PO HS@1900 06/29/21 10/25/21 History Furosemide [Lasix] 40 mg PO BID@0700,189906/29/21 10/25/21 History Mirtazapine [Remeron] 15 mg PO HS@189906/29/21 10/25/21 History Multivit-Min/Iron/Folic/Lutein 1 tab PO DAILY@0707/10/21 10/25/21 History [Centrum Silver Women Tablet] Simvastatin 40 mg PO HS@189907/10/21 10/25/21 History SILVER sulfADIAZINE Cream 1 applic TOPICAL BID@699,189907/27/21 10/25/21 History [Silvadene 1% Cream] Acetaminophen [Tylenol] 500 - 1,000 mg PO Q6H PRN 08/26/21 10/25/21 History Black Elderberry 2000mg Capsule 4,000 mg PO BID@699,189908/26/21 10/25/21 History Calcium Carbonate [Tums] 1,000 - 2,000 mg PO DAILY PRN 08/26/21 10/25/21 History Carvedilol [Coreg] 25 mg PO BID@07,189908/26/21 10/25/21 History Guaifenesin/Dextromethorphan 20 ml PO DIRECTED PRN 08/26/21 10/25/21 History [Robitussin Cough-Chest Dm Liq] HYDROcodone/APAP 7.5-325MG [[place] 1 tab PO Q6H PRN 08/26/21 10/25/21 History 7.5-325] Lansoprazole [Prevacid] 30 mg PO DAILY@69908/26/21 10/25/21 History Spironolactone 25 mg PO DAILY@69908/26/21 10/25/21 History Zolpidem Tartrate [Ambien] 5 mg PO HS PRN 08/26/21 10/25/21 History Allergy Relief 50 mg PO BID@0700,189909/25/21 10/25/21 History Ascorbic Acid [Vitamin C] 500 mg PO DAILY@69909/25/21 10/25/21 History Cholecalciferol [Vitamin D3 (25 25 mcg PO DAILY@69909/25/21 10/25/21 History Mcg = 1000 Iu)] Colon Health Probiotic 1 cap PO DAILY@69909/25/21 10/25/21 History Ipratropium-Albuterol Nebulize 3 ml INHALATION RT-QID 09/25/21 10/25/21 History [Duoneb 0.5 mg-3 mg/3 ml Soln] Zinc 50 mg PO DAILY@0700 09/25/21 10/25/21 History guaiFENesin [Mucinex] 1,200 mg PO Q12H PRN 09/25/21 10/25/21 History Budesonide-Formot 160-4.5 Mcg 2 puff INHALATION RT-BID 30 Days 09/27/21 10/25/21 Rx [Symbicort 160-4.5 Mcg Inhaler] #8 gm Apixaban [Eliquis] 5 mg PO BID 10/25/21 10/25/21 History Levofloxacin [Levaquin] 500 mg PO DAILY@0800 10/25/21 10/25/21 History Menthol [Casey] 7.5 mg MM DIRECTED PRN 10/25/21 10/25/21 History Ondansetron Odt [Zofran Odt] 4 mg PO TID@0800,1600,199910/25/21 10/25/21 Histor y Ondansetron [Zofran] 4 mg PO Q8HR PRN 10/25/21 10/25/21 History Quercetin Bromelain Caps 2 capsule PO DAILY@0700 10/25/21 10/25/21 History Allergies Allergy/AdvReac Type Severity Reaction Status Date / Time onion Allergy Unknown Verified 10/25/21 21:54 adhesive AdvReac SKIN Verified 10/25/21 21:54 REDDENS & BLISTERS- PAPER TAPE OKAY aspirin AdvReac STOMACH Verified 10/25/21 21:54 HERRERA azithromycin [From Zithromax] AdvReac Nausea & Verified 10/25/21 21:54 Vomiting lactose AdvReac Nausea Verified 10/25/21 21:54 meperidine HCl [From Demerol] AdvReac Nausea & Verified 10/25/21 21:54 Vomiting morphine AdvReac Nausea & Verified 10/25/21 21:54 Vomiting Sulfa (Sulfonamide AdvReac Nausea & Verified 10/25/21 21:54 Antibiotics) Vomiting tree and shrub pollen AdvReac Cough Verified 10/25/21 21:54 anesthesia Allergy facial/arms/hands Uncoded 10/25/21 21:54 swelling,skin"turns beet red", nausea DISSOLVING SUTURES AdvReac INFECTION Uncoded 10/25/21 19:35 Physical Examination Physical exam: Patient is awake, alert, and oriented 3 Vital signs stable Adequate chest excursion with deep inspiration and expiration Examination of lumbar spine reveals skin is intact with no abrasions, lacerations, or bruises; no erythema, purulence or signs of infection Mild generalized pain with palpation over the entire thoracic and lumbar spines Dorsiflexion, plantarflexion, and extensor hallucis longus positive sustained bilaterally Patient is able to lift her lower extremities off the bed bilaterally independently but does have difficulty doing so with greater difficulty on the left than the right No signs or symptoms of DVT; no calf pain No pain with internal and external rotation of the hips bilaterally Some mild generalized erythema over the lower extremities Neurovascularly intact Results Pertinent studies: X-rays of the lumbosacral spine taken on 10/29/2021: Imaging appears stable as compared to CT of the abdomen and pelvis taken on 06/06/2021; Evidence of L2 superior endplate compression fracture deformity with approximately 40% height loss with sclerosis and anterior osteophytic spurring; slight degenerative scoliosis; Evidence of an inferior endplate compression fracture of L5 which appears stable; L1-2 degenerative disc disease; clips from cholecystectomy X-rays of the thoracic spine taken on 10/27/2021: Osteoporotic multiple compression fractures with kyphotic deformity without changes compared to recent exam; progression of kyphosis compared to previous x-ray from 08/06/2021; thoracic degenerative disc disease CT of the abdomen and pelvis reviewed for orthopedic purposes on 06/06/2021: Evidence of L2 superior endplate compression fracture deformity with approximat falguni 40% height loss with some sclerosis and anterior osteophytic spurring; lower thoracic degenerative disc disease; slight degenerative scoliosis; Evidence of an inferior endplate compression fracture of L5; L1-2 degenerative disc disease X-rays of the lumbosacral spine taken on 05/08/2021: No evidence of significant depression fracture deformity at L2; Slight degenerative scoliosis; Evidence of an inferior endplate compression fracture of L5; L1-2 degenerative disc disease with anterior osteophytic spurring; L5-S1 spondylolisthesis - Labs Labs: Abnormal Lab Results - Last 24 Hours (Table) 10/28/21 10/28/21 10/28/21 Range/Units 16:53 20:17 Unknown RBC (4.10-5.20) X 10*6/uL Hgb (12.0-15.0) g/dL Hct (37.2-46.3) % MCHC (32.0-37.0) g/dL RDW (11.5-14.5) % Immature Gran # (0.00-0.04) X 10*3/uL Sodium (137-145) mmol/L Chloride (98-107) mmol/L Carbon Dioxide (22-30) mmol/L BUN (7-17) mg/dL Creatinine (0.52-1.04) mg/dL Glucose (74-99) mg/dL POC Glucose (mg/dL) 188 H 179 H (75-99) mg/dL Magnesium (1.6-2.3) mg/dL C-Reactive Protein (<1.0) mg/dL Ur Leukocyte Esterase Small H (Negative) Urine Bacteria Rare H (None) /hpf Hyaline Casts 6 H (0-2) /lpf Urine Mucus Rare H (None) /hpf 10/29/21 10/29/21 10/29/21 Range/Units 06:53 07:15 07:15 RBC 3.65 L (4.10-5.20) X 10*6/uL Hgb 10.5 L (12.0-15.0) g/dL Hct 34.2 L (37.2-46.3) % MCHC 30.7 L (32.0-37.0) g/dL RDW 15.8 H (11.5-14.5) % Immature Gran # 0.08 H (0.00-0.04) X 10*3/uL Sodium 132 L (137-145) mmol/L Chloride 91 L (98-107) mmol/L Carbon Dioxide 35 H (22-30) mmol/L BUN 26 H (7-17) mg/dL Creatinine 1.86 H (0.52-1.04) mg/dL Glucose 150 H (74-99) mg/dL POC Glucose (mg/dL) 160 H (75-99) mg/dL Magnesium 2.5 H (1.6-2.3) mg/dL C-Reactive Protein 2.6 H (<1.0) mg/dL Ur Leukocyte Esterase (Negative) Urine Bacteria (None) /hpf Hyaline Casts (0-2) /lpf Urine Mucus (None) /hpf 10/29/21 Range/Units 11:41 RBC (4.10-5.20) X 10*6/uL Hgb (12.0-15.0) g/dL Hct (37.2-46.3) % MCHC (32.0-37.0) g/dL RDW (11.5-14.5) % Immature Gran # (0.00-0.04) X 10*3/uL Sodium (137-145) mmol/L Chloride (98-107) mmol/L Carbon Dioxide (22-30) mmol/L BUN (7-17) mg/dL Creatinine (0.52-1.04) mg/dL Glucose (74-99) mg/dL POC Glucose (mg/dL) 157 H (75-99) mg/dL Magnesium (1.6-2.3) mg/dL C-Reactive Protein (<1.0) mg/dL Ur Leukocyte Esterase (Negative) Urine Bacteria (None) /hpf Hyaline Casts (0-2) /lpf Urine Mucus (None) /hpf Microbiology - Last 24 Hours (Table) 10/26/21 00:42 Blood Culture - Preliminary Blood No Growth after 72 hours 10/25/21 23:15 Blood Culture - Preliminary Blood No Growth after 72 hours 10/25/21 23:00 Blood Culture - Preliminary Blood No Growth after 72 hours H & H 10/25/21 10/26/21 10/27/21 Range/Units 20:31 05:48 06:19 Hgb 13.0 11.9 10.8 L (11.4-16.0) gm/dL Hct 40.3 37.2 36.5 L (34.0-46.0) % 10/28/21 10/29/21 Range/Units 06:49 07:15 Hgb 10.1 L 10.5 L (11.4-16.0) gm/dL Hct 33.1 L 34.2 L (34.0-46.0) % Coagulation 10/25/21 Range/Units 20:31 INR 1.0 (<1.2) Result Diagrams: 10/29/21 07:15 10/29/21 07:15 Assessment and Plan Assessment: Assessment: Chronic low back pain Chronic L2 compression fracture deformity, stable Reported injury in the fall of 2020 Recent fall 3-4 weeks ago Chronic L5 inferior endplate compression fracture deformity Osteoporosis L5-S1 spondylolisthesis L1-2 degenerative disc disease with anterior osteophytic spurring Slight degenerative scoliosis Recurrent urinary tract infection New-onset diabetes Acute kidney injury COPD Recent small nonocclusive pulmonary emboli currently on anticoagulation History of cancer Heart failure Hyperlipidemia Hypertension Sleep apnea Thyroid disorder Obesity (1) Compression fracture of L5 vertebra Current Visit: Yes Status: Acute Code(s): S32.050A - WEDGE COMPRESSION FRACTURE OF FIFTH LUMBAR VERTEBRA, INIT SNOMED Code(s): 239719933 (2) Spondylolisthesis at L5-S1 level Current Visit: Yes Status: Acute Code(s): M43.17 - SPONDYLOLISTHESIS, LUMBOSACRAL REGION SNOMED Code(s): 246887626 (3) Osteophyte Current Visit: Yes Status: Acute Code(s): M25.70 - OSTEOPHYTE, UNSPECIFIED JOINT SNOMED Code(s): 599867514889775 (4) Lumbar degenerative disc disease Current Visit: Yes Status: Acute Code(s): M51.36 - OTHER INTERVERTEBRAL DISC DEGENERATION, LUMBAR REGION SNOMED Code(s): 94894846 (5) Thoracic compression fracture Current Visit: Yes Status: Acute Code(s): S22.000A - WEDGE COMPRESSION FRACTURE OF UNSP THORACIC VERTEBRA, INIT SNOMED Code(s): 329394198 (6) Status post fall Current Visit: Yes Status: Acute Code(s): Z91.81 - HISTORY OF FALLING SNOMED Code(s): 388509736 (7) Recurrent urinary tract infection Current Visit: Yes Status: Acute Code(s): N39.0 - URINARY TRACT INFECTION, SITE NOT SPECIFIED SNOMED Code(s): 404209850 (8) Diabetes mellitus, new onset Current Visit: Yes Status: Acute Code(s): E11.9 - TYPE 2 DIABETES MELLITUS WITHOUT COMPLICATIONS SNOMED Code(s): 566628917 (9) Acute kidney injury Current Visit: Yes Status: Acute Code(s): N17.9 - ACUTE KIDNEY FAILURE, UNSPECIFIED SNOMED Code(s): 96080894 (10) COPD (chronic obstructive pulmonary disease) Current Visit: Yes Status: Acute Code(s): J44.9 - CHRONIC OBSTRUCTIVE P ULMONARY DISEASE, UNSPECIFIED SNOMED Code(s): 49337881 (11) Pulmonary emboli Current Visit: Yes Status: Acute Code(s): I26.99 - OTHER PULMONARY EMBOLISM WITHOUT ACUTE COR PULMONALE SNOMED Code(s): 13178340 (12) Current use of buttermaker anticoagulation Current Visit: Yes Status: Acute Code(s): Z79.01 - BALANCE WHEEL SCREW HOLE TAPPER (CURRENT) USE OF ANTICOAGULANTS SNOMED Code(s): 990464368 (13) History of cancer Current Visit: Yes Status: Acute Code(s): Z85.9 - PERSONAL HISTORY OF MALIGNANT NEOPLASM, UNSPECIFIED SNOMED Code(s): 787257548 (14) Heart failure Current Visit: Yes Status: Acute Code(s): I50.9 - HEART FAILURE, UNSPECIFIED SNOMED Code(s): 85713617 (15) Hyperlipidemia Current Visit: Yes Status: Acute Code(s): E78.5 - HYPERLIPIDEMIA, UNSPECIFIED SNOMED Code(s): 63602169 (16) Hypertension Current Visit: Yes Status: Acute Code(s): I10 - ESSENTIAL (PRIMARY) HYPE RTENSION SNOMED Code(s): 16103411 (17) Sleep apnea Current Visit: Yes Status: Acute Code(s): G47.30 - SLEEP APNEA, UNSPECIFIED SNOMED Code(s): 47808147 (18) Thyroid disorder Current Visit: Yes Status: Acute Code(s): E07.9 - DISORDER OF THYROID, UNSPECIFIED SNOMED Code(s): 62283307 (19) Obesity (BMI 30.0-34.9) Current Visit: Yes Status: Acute Code(s): E66.9 - OBESITY, UNSPECIFIED SNOMED Code(s): 176342830000257 (20) Compression fracture of L2 Current Visit: Yes Status: Acute Code(s): S32.020A - WEDGE COMPRESSION FRACTURE OF SECOND LUMBAR VERTEBRA, INIT SNOMED Code(s): 02328928103347696 Plan: Plan: 1. After further discussion with the patient, reviewing the imaging by myself and Dr. Star Keys, and physical examination of the patient, we'll currently plan to continue conservative treatment at this time. She does have a history of chronic low back pain. She did have significant exacerbation of pain in the fall of 2021 after trying to lift her . She states her pain was severe at that time. She states her pain has improved since that time. She did sustain another fall approximately 3-4 weeks ago. She feels she has been improving since that time. Reviewing of imaging does show evidence of an L2 c ompression fracture deformity superior endplate. This imaging remain stable when comparing CT of the abdomen and pelvis imaging taken on 06/06/2021 versus x-ray imaging taken on 10/29/2021. Her L2 fracture appears new when comparing x-ray imaging taken on 05/08/[address] imaging from 06/06/2021. It appears her L2 fracture has remained stable over the past 5 months. She also has an L5 inferior endplate compression fracture deformity which is chronic. Reviewing of imaging also shows multiple thoracic compression fracture deformities of indeterminate age which have not changed as compared to recent imaging. She is not currently complaining of any thoracic back pain. We are not currently planning for bracing. Her fracture appears chronic in nature. She also has significant COPD and may not tolerate bracing. We did discuss she may increase her mobility and ambulation with the assistance of physical therapy. She does have chronic difficulty with her lower extremities worse on the left than the right. She could benefit from working with physical therapy to increase her mobility and ambulation. We will plan to have her follow up with Dr. Ramon in the outpatient setting for further treatment and evaluation from a pain management standpoint. At this time patient is clear for discharge from orthopedic spine standpoint. Patient may follow-up with Hank Farnsworth or Dr. Star Keys at [facility] on an as-needed basis following discharge. 2. Patient will continue to be seen in exam by multiple medical diagnoses including medicine, infectious disease, and nephrology for her other significant medical diagnoses. Time with Patient: Greater than 30 (Including obtaining history, physical examination, reviewing of imaging, and dictation.)
[2021-10-29 16:32] LABS: Glucose,Whole Blood 130 mg/dL (75-99)
[2021-10-29 20:46] LABS: Glucose,Whole Blood 200 mg/dL (75-99)
[2021-10-29] MEDS: MAGNESIUM HYDROXIDE 2,400 MG/10 ML CUP PO PRN (21:24)
[2021-10-29] MEDS: DOCUSATE 100 MG CAP PO SCH (21:26)
[2021-10-29] MEDS: MIRTAZAPINE 15 MG TAB PO SCH (21:28)
[2021-10-29] MEDS: SERTRALINE 50 MG TAB PO SCH (21:28)
--- NOTE | 2021-10-29 23:14 | P.PN ---
Subjective Progress Note Date: 10/28/21 Principal diagnosis: Enterococcus urinary tract infection Patient is 81-year-old female with a past medical history significant for recurrent urinary tract infection presented to hospital with pain to the left flank area and concerning for symptomatic UTI with a recent urine culture positive for enterococcus, patient did not tolerated outpatient Zyvox. On today's evaluation that is 10/28/2021, the patient remains to be afebrile, patient pain to the left lower rib cage area has slightly decreased intensity, patient denies having any chest pain however is complaining of shortness of breath, no abdominal pain and no diarrhea Objective - Vital Signs Vital signs: Vital Signs Temp 98.7 F 10/28/21 08:00 Pulse 72 10/28/21 12:03 Resp 16 10/28/21 08:00 BP 171/64 10/28/21 08:00 Pulse Ox 91 L 10/28/21 08:22 Intake & Output 10/27/21 10/28/21 10/28/21 17:59 06:59 18:59 Intake Total Balance Intake: Intake, IV Titration Amount Sodium Chloride 0.9% 1, 000 ml @ 75 mls/hr IV . [id number] [facility] Rx#:[id number] Other: Voiding Method Toilet - Exam GENERAL DESCRIPTION: An elderly female lying in bed in no distress RESPIRATORY SYSTEM: Unlabored breathing , decreased breath sounds at bases HEART: S1 S2 regular rate and rhythm , ABDOMEN: Soft , no tenderness EXTREMITIES: No edema feet - Labs CBC & Chem 7: 10/29/21 07:15 10/29/21 07:15 Labs: Abnormal Lab Results - Last 24 Hours (Table) 10/27/21 10/27/21 10/28/21 Range/Units 16:58 21:10 06:44 RBC (4.10-5.20) X 10*6/uL Hgb (12.0-15.0) g/dL Hct (37.2-46.3) % MCHC (32.0-37.0) g/dL RDW (11.5-14.5) % Immature Gran # (0.00-0.04) X 10*3/uL Sodium (137-145) mmol/L Chloride (98-107) mmol/L Carbon Dioxide (22-30) mmol/L BUN (7-17) mg/dL Creatinine (0.52-1.04) mg/dL Glucose (74-99) mg/dL POC Glucose (mg/dL) 182 H 214 H (75-99) mg/dL Calcium (8.4-10.2) mg/dL C-Reactive Protein 2.5 H (<1.0) mg/dL 10/28/21 10/28/21 10/28/21 Range/Units 06:49 06:49 07:10 RBC 3.47 L (4.10-5.20) X 10*6/uL Hgb 10.1 L (12.0-15.0) g/dL Hct 33.1 L (37.2-46.3) % MCHC 30.5 L (32.0-37.0) g/dL RDW 15.9 H (11.5-14.5) % Immature Gran # 0.06 H (0.00-0.04) X 10*3/uL Sodium 130 L (137-145) mmol/L Chloride 95 L (98-107) mmol/L Carbon Dioxide 34 H (22-30) mmol/L BUN 27 H (7-17) mg/dL Creatinine 1.87 H (0.52-1.04) mg/dL Glucose 152 H (74-99) mg/dL POC Glucose (mg/dL) 173 H (75-99) mg/dL Calcium 8.0 L (8.4-10.2) mg/dL C-Reactive Protein (<1.0) mg/dL 10/28/21 Range/Units 11:55 RBC (4.10-5.20) X 10*6/uL Hgb (12.0-15.0) g/dL Hct (37.2-46.3) % MCHC (32.0-37.0) g/dL RDW (11.5-14.5) % Immature Gran # (0.00-0.04) X 10*3/uL Sodium (137-145) mmol/L Chloride (98-107) mmol/L Carbon Dioxide (22-30) mmol/L BUN (7-17) mg/dL Creatinine (0.52-1.04) mg/dL Glucose (74-99) mg/dL POC Glucose (mg/dL) 176 H (75-99) mg/dL Calcium (8.4-10.2) mg/dL C-Reactive Protein (<1.0) mg/dL Microbiology - Last 24 Hours (Table) 10/26/21 00:42 Blood Culture - Preliminary Blood No Growth after 48 hours 10/25/21 23:15 Blood Culture - Preliminary Blood No Growth after 48 hours 10/25/21 23:00 Blood Culture - Preliminary Blood No Growth after 48 hours Assessment and Plan (1) UTI (urinary tract infection) Current Visit: Yes Status: Acute Code(s): N39.0 - URINARY TRACT INFECTION, SITE NOT SPECIFIED SNOMED Code(s): 40752331 Plan: 1patient with a history of recurrent UTI with recent urine culture positive for Enterococcus faecium and the patient seem to have failed oral Zyvox therapy because of GI side effect. 2repeat urine culture are currently pending. 3ultrasound of the kidneys was negative for any structural abnormality 4patient did state of the kidney function and Vanco trough is elevated vancomycin will be discontinued patient was started on daptomycin UA will be repeated Time with Patient: Less than 30
--- NOTE | 2021-10-29 23:15 | P.PN ---
Subjective Progress Note Date: 10/29/21 Principal diagnosis: Enterococcus urinary tract infection Patient is 81-year-old female with a past medical history significant for recurrent urinary tract infection presented to hospital with pain to the left flank area and concerning for symptomatic UTI with a recent urine culture positive for enterococcus, patient did not tolerated outpatient Zyvox. On today's evaluation that is 10/29/2021, the patient denies any fever or any chills, patient denies chest pain however is complaining of some shortness of breath, did have some nausea but no vomiting and no abdominal pain no diarrhea Objective - Vital Signs Vital signs: Vital Signs Temp 98.8 F 10/29/21 14:11 Pulse 72 10/29/21 16:14 Resp 14 10/29/21 14:11 BP 120/66 10/29/21 14:11 Pulse Ox 97 10/29/21 14:11 Intake & Output 10/28/21 10/29/21 10/29/21 18:59 06:59 18:59 Intake Total 965 300 180 Balance 965 300 180 Intake: Intake, IV Titration 425 Amount DAPTOmycin 400 mg In 50 Sodium Chloride 0.9% 50 ml @ 100 mls/hr IVPB Q48H [facility] Rx#:[id number] Sodium Chloride 0.9% 1, 375 000 ml @ 75 mls/hr IV . [id number] [facility] Rx#:[id number] Oral 540 300 180 Other: Voiding Method Toilet Toilet # Voids 3 3 - Exam GENERAL DESCRIPTION: An elderly female lying in bed in no distress RESPIRATORY SYSTEM: Unlabored breathing , decreased breath sounds at bases HEART: S1 S2 regular rate and rhythm , ABDOMEN: Soft , no tenderness EXTREMITIES: No edema feet - Labs CBC & Chem 7: 10/29/21 07:15 10/29/21 07:15 Labs: Abnormal Lab Results - Last 24 Hours (Table) 10/28/21 10/28/21 10/28/21 Range/Units 16:53 20:17 Unknown RBC (4.10-5.20) X 10*6/uL Hgb (12.0-15.0) g/dL Hct (37.2-46.3) % MCHC (32.0-37.0) g/dL RDW (11.5-14.5) % Immature Gran # (0.00-0.04) X 10*3/uL Sodium (137-145) mmol/L Chloride (98-107) mmol/L Carbon Dioxide (22-30) mmol/L BUN (7-17) mg/dL Creatinine (0.52-1.04) mg/dL Glucose (74-99) mg/dL POC Glucose (mg/dL) 188 H 179 H (75-99) mg/dL Magnesium (1.6-2.3) mg/dL C-Reactive Protein (<1.0) mg/dL Ur Leukocyte Esterase Small H (Negative) Urine Bacteria Rare H (None) /hpf Hyaline Casts 6 H (0-2) /lpf Urine Mucus Rare H (None) /hpf 10/29/21 10/29/21 10/29/21 Range/Units 06:53 07:15 07:15 RBC 3.65 L (4.10-5.20) X 10*6/uL Hgb 10.5 L (12.0-15.0) g/dL Hct 34.2 L (37.2-46.3) % MCHC 30.7 L (32.0-37.0) g/dL RDW 15.8 H (11.5-14.5) % Immature Gran # 0.08 H (0.00-0.04) X 10*3/uL Sodium 132 L (137-145) mmol/L Chloride 91 L (98-107) mmol/L Carbon Dioxide 35 H (22-30) mmol/L BUN 26 H (7-17) mg/dL Creatinine 1.86 H (0.52-1.04) mg/dL Glucose 150 H (74-99) mg/dL POC Glucose (mg/dL) 160 H (75-99) mg/dL Magnesium 2.5 H (1.6-2.3) mg/dL C-Reactive Protein 2.6 H (<1.0) mg/dL Ur Leukocyte Esterase (Negative) Urine Bacteria (None) /hpf Hyaline Casts (0-2) /lpf Urine Mucus (None) /hpf 10/29/21 10/29/21 Range/Units 11:41 16:31 RBC (4.10-5.20) X 10*6/uL Hgb (12.0-15.0) g/dL Hct (37.2-46.3) % MCHC (32.0-37.0) g/dL RDW (11.5-14.5) % Immature Gran # (0.00-0.04) X 10*3/uL Sodium (137-145) mmol/L Chloride (98-107) mmol/L Carbon Dioxide (22-30) mmol/L BUN (7-17) mg/dL Creatinine (0.52-1.04) mg/dL Glucose (74-99) mg/dL POC Glucose (mg/dL) 157 H 130 H (75-99) mg/dL Magnesium (1.6-2.3) mg/dL C-Reactive Protein (<1.0) mg/dL Ur Leukocyte Esterase (Negative) Urine Bacteria (None) /hpf Hyaline Casts (0-2) /lpf Urine Mucus (None) /hpf Microbiology - Last 24 Hours (Table) 10/26/21 00:42 Blood Culture - Preliminary Blood No Growth after 72 hours 10/25/21 23:15 Blood Culture - Preliminary Blood No Growth after 72 hours 10/25/21 23:00 Blood Culture - Preliminary Blood No Growth after 72 hours Assessment and Plan (1) UTI (urinary tract infection) Current Visit: Yes Status: Acute Code(s): N39.0 - URINARY TRACT INFECTION, SITE NOT SPECIFIED SNOMED Code(s): 87275384 Plan: 1patient with a history of recurrent UTI with recent urine culture positive for Enterococcus faecium and the patient seem to have failed oral Zyvox therapy because of GI side effect. 2repeat urine culture are currently pending. 3ultrasound of the kidneys was negative for any structural abnormality 4patient was switched to daptomycin because of her kidney function will be continued while waiting for repeat urine to be finalize Time with Patient: Less than 30
--- NOTE | 2021-10-29 23:54 | P.PN ---
Subjective Progress Note Date: 10/29/21 This is a pleasant 81 years old female with multiple visits to the emergency room and she was recently hospitalized as inpatient last month for acute COPD exacerbation and found to have small nonocclusive pulmonary emboli of the lingula and currently she is on Eliquis,Patient also has history of multiple abdominal surgeries and prior history of bowel obstruction requiring She presents this time with nausea vomiting, she was recently started on antibiotic for UTI, and on admission she was hypertensive 222/111 She was recently visited the emergency room on 10/21 for abdominal pain, At that time CT of the abdomen and pelvis: No acute process seen Patient says that she has pain in the left flank area yesterday she was sitting at her assisted living home where she felt warm nauseated and vomited 3 times with no blood, since that she's been complaining of from this pain in her left flank area. Patient complaining of from constipation, she had a suppository followed by large bowel movement. Bladder scan was checked and it was 112. She denies smoking, alcohol or illicit drugs Patient is unaware she is diabetic, however her hemoglobin A1c was elevated 8.4% recently. Currently patient is hemodynamically stable, blood pressure improved 168/80, patient requiring 5 L of oxygen via nasal cannula to keep saturation at 96% (which is her baseline, on September also she was on 5 L oxygen via nasal olvin maggie) CBC is unremarkable, BMP showed creatinine 1.1 which is baseline. Sodium 136. Liver enzymes elevated. TSH slightly up 5.01 but normal free T4 1 0.2. Chest x-ray: Mild bibasilar opacity, probably atelectasis EKG: Normal sinus rhythm at [address]-T changes and QTC 417. Urinalysis from 10/21 showing evidence of infection with large leukocyte esterase and WBCs 30 which is elevated. Urine culture is growing resistant enterococcus faecium In the emergency room she received Benadryl, gentamicin, Leona 7.5 and feculent Hemoglobin A1c was elevated on 09/27/2011 at 8.4 10/27/2021 Patient nausea vomiting stopped, she is awake and alert, she still have meddle back pain and left side chest pain since she fell about 2 weeks ago. Rib x-rays negative for fracture Thoracic x-ray showing osteoporotic multiple compression fractures with every 4 to deformity without change compared to recent exam. There is progression of the kyphosis compared to old chest x-ray of the 07/27/2021 No dysuria or urgency. She still been treated for UTI enterococcus become with IV vancomycin however her creatinine went up today to 1.8, Bladder scan showing 150-200 mL only, urine analysis showed trace protein, small leukocyte esterase. Patient already received IV vancomycin this morning, discussed with staff to check with pharmacy about dosing in view of worsening kidney function. Also oth er medications are checked we'll try to avoid nephrotoxic medication, Aldactone was held, Remeron and Eliquis ptosis woke up and to have. We'll start patient on normal saline at 75 mm/h No evidence of hypotension episodes actually her blood pressure on the high side 133/76, we'll start small dose of hydralazine 10 mg twice a day. Nephrology team were consulted patient had very good large bowel movement after suppository yesterday 10/28/2021 Patient admitted for nausea vomiting and UTI secondary to arterial because faecalis. Also she fell 2 weeks ago and she has tenderness in the left lateral chest wall secondary to multiple compression fractures which were ongoing with osteoporosis. Patient was started on calcium and vitamin D. Orthopedic team consult. May benefit from possible brace. Also patient new-onset diabetes with hemoglobin A1c 8.4%, she was started on insulin sliding scale and check for his work 2-3 units with meals. Her creatinine went up 1.1-1.8 yesterday at 1.7 today. Antibiotics were adjusted. Vancomycin attempted to daptomycin, random vancomycin level is 26.9 which is within the range. Patient Eliquis dose cut in half because of worsening kidney function as well as Remeron dose lower to 50 mg down to 7.5 mg. IV fluids were discontinued with the patient is On oral Lasix 40 mg twice a day. Oxygen at baseline of 5 L/m. 10/29/2021 Patient is currently sitting in the recliner.. On 5 L oxygen via nasal cannula. Patient complains of shortness of breath and also lower back pain. Lumbar spine x-ray showed superior endplate fracture with anterior wedge deformity of L2 is new from 05/08/2021 Orthopedic surgery recommends conservative treatment at this time. Patient also being treated for urinary tract infection with urine culture positive for Enterococcus species. Patient is currently on daptomycin. ID is following. Patient has been afebrile. Laboratory data showed WBC 9.25 hemoglobin 10.5 and platelets 261 Sodium 132 potassium 4.3 chloride 91 bicarb is 35 BUN 26 and creatinine 1.86 and CRP 2.6 Patient is being continued oral Lasix and fluid restriction. Current medications reviewed. Objective - Vital Signs Vital signs: Vital Signs Temp 98.8 F 10/29/21 14:11 Pulse 60 10/29/21 14:11 Resp 14 10/29/21 14:11 BP 120/66 10/29/21 14:11 Pulse Ox 97 10/29/21 14:11 Intake & Output 10/28/21 10/29/21 10/29/21 18:59 06:59 18:59 Intake Total 965 300 180 Balance 965 300 180 Intake: Intake, IV Titration 425 Amount DAPTOmycin 400 mg In 50 Sodium Chloride 0.9% 50 ml @ 100 mls/hr IVPB Q48H [facility] Rx#:[id number] Sodium Chloride 0.9% 1, 375 000 ml @ 75 mls/hr IV . [id number] [facility] Rx#:[id number] Oral 540 300 180 Other: Voiding Method Toilet Toilet # Voids 3 3 - Exam - Exam GENERAL: The patient is alert and oriented x3, not in any acute distress. Obese HEENT: Pupils are round and equally reacting to light. EOMI. No scleral icterus. No conjunctival pallor. Normocephalic, atraumatic. No pharyngeal erythema. No thyromegaly. CARDIOVASCULAR: S1 and S2 present. No murmurs, rubs, or gallops. -PULMONARY: Bilateral expiratory wheezing present.. Left upper lateral chest wall tenderness, mild ABDOMEN: Soft, nontender, nondistended, normoactive bowel sounds. No palpable organomegaly. MUSCULOSKELETAL: No joint swelling or deformity. EXTREMITIES: No cyanosis, clubbing. Patient does have bilateral lower extremity edema. NEUROLOGICAL: Gross neurological examination did not reveal any focal deficits. SKIN: No rashes. no petechiae. - Labs CBC & Chem 7: 10/29/21 07:15 10/29/21 07:15 Labs: Abnormal Lab Results - Last 24 Hours (Table) 10/28/21 10/28/21 10/28/21 Range/Units 16:53 20:17 Unknown RBC (4.10-5.20) X 10*6/uL Hgb (12.0-15.0) g/dL Hct (37.2-46.3) % MCHC (32.0-37.0) g/dL RDW (11.5-14.5) % Immature Gran # (0.00-0.04) X 10*3/uL Sodium (137-145) mmol/L Chloride (98-107) mmol/L Carbon Dioxide (22-30) mmol/L BUN (7-17) mg/dL Creatinine (0.52-1.04) mg/dL Glucose (74-99) mg/dL POC Glucose (mg/dL) 188 H 179 H (75-99) mg/dL Magnesium (1.6-2.3) mg/dL C-Reactive Protein (<1.0) mg/dL Ur Leukocyte Esterase Small H (Negative) Urine Bacteria Rare H (None) /hpf Hyaline Casts 6 H (0-2) /lpf Urine Mucus Rare H (None) /hpf 10/29/21 10/29/21 10/29/21 Range/Units 06:53 07:15 07:15 RBC 3.65 L (4.10-5.20) X 10*6/uL Hgb 10.5 L (12.0-15.0) g/dL Hct 34.2 L (37.2-46.3) % MCHC 30.7 L (32.0-37.0) g/dL RDW 15.8 H (11.5-14.5) % Immature Gran # 0.08 H (0.00-0.04) X 10*3/uL Sodium 132 L (137-145) mmol/L Chloride 91 L (98-107) mmol/L Carbon Dioxide 35 H (22-30) mmol/L BUN 26 H (7-17) mg/dL Creatinine 1.86 H (0.52-1.04) mg/dL Glucose 150 H (74-99) mg/dL POC Glucose (mg/dL) 160 H (75-99) mg/dL Magnesium 2.5 H (1.6-2.3) mg/dL C-Reactive Protein 2.6 H (<1.0) mg/dL Ur Leukocyte Esterase (Negative) Urine Bacteria (None) /hpf Hyaline Casts (0-2) /lpf Urine Mucus (None) /hpf 10/29/21 Range/Units 11:41 RBC (4.10-5.20) X 10*6/uL Hgb (12.0-15.0) g/dL Hct (37.2-46.3) % MCHC (32.0-37.0) g/dL RDW (11.5-14.5) % Immature Gran # (0.00-0.04) X 10*3/uL Sodium (137-145) mmol/L Chloride (98-107) mmol/L Carbon Dioxide (22-30) mmol/L BUN (7-17) mg/dL Creatinine (0.52-1.04) mg/dL Glucose (74-99) mg/dL POC Glucose (mg/dL) 157 H (75-99) mg/dL Magnesium (1.6-2.3) mg/dL C-Reactive Protein (<1.0) mg/dL Ur Leukocyte Esterase (Negative) Urine Bacteria (None) /hpf Hyaline Casts (0-2) /lpf Urine Mucus (None) /hpf Microbiology - Last 24 Hours (Table) 10/26/21 00:42 Blood Culture - Preliminary Blood No Growth after 72 hours 10/25/21 23:15 Blood Culture - Preliminary Blood No Growth after 72 hours 10/25/21 23:00 Blood Culture - Preliminary Blood No Growth after 72 hours Assessment and Plan Assessment: acute urinary tract infection, With continued ongoing infection and urine culture growing enterococcus faecium (The same organism detected in the urine, last year) Acute kidney injury Likely due to ATN due to hemodynamic changes and antibiotic use in the form of vancomycin. Change to Dapto now. New L2 compression fracture. Nausea vomiting , improving Possible new onset diabetes mellitus with hemoglobin A1c 8.4%, repeat the test Hypertension with urgency, present on admission, currently improved Osteoporosis with multiple compression fracture deformity of the thoracic spine vertebrae, with back pain secondary to fall 2 weeks prior to admission COPD, not acute exacerbation. With chronic hypoxic respiratory failure 4-5 L/m at home Recent history of small nonocclusive PE, currently on Eliquis, failed warfarin for the same history of PE Evidence of chronic kidney disease, stage III history of multiple abdominal surgeries and prior history of bowel obstruction requiring History of rheumatoid arthritis History of diverticular disease History of GERD Hypothyroidism Chronic back pain on Leona 7.5 History of coronary artery disease. Plan: This is a pleasant 81 years old female who presents with nausea vomiting. Patient is being treated for acute urinary tract infection and acute kidney injury. Patient will be continued for Lasix and follow-up renal function. Antibiotics in the form of IV daptomycin for urinary tract infection with Enterococcus faecium. ID and nephrology is following. Currently she is on Coreg 25 mg, clonidine 0.3 mg twice a day, Lasix 40 mg twice a day, and Aldactone 25 mg daily. She is also on Norvasc 10 mg and keep monitoring blood pressure . , also she is started on hydralazine 10 mg twice a day Start the patient on NovoLog 2 units with meals. Continue on insulin sliding scale. Start calcium and vitamin D. Orthopedic team consult Labs and medication were reviewed. Monitor lytes and vitals. DVT and GI prophylaxis. Further recommendations depends on the clinical course of the patient DVT prophylaxis: Eliquis GI Prophylaxis: Ppi PT/OT: Pending Prognosis is guarded Discussed with [facility] physician and recommended inpatient admission due to above multiple medical problems. Time with Patient: Greater than 30
[2021-10-30] MEDS: LEVOTHYROXINE 125 MCG TAB PO SCH (06:15)
[2021-10-30] MEDS: ONDANSETRON 4 MG TAB PO PRN (06:18)
[2021-10-30 07:13] LABS: Glucose,Whole Blood 167 mg/dL (75-99)
[2021-10-30] MEDS: amLODIPine 10 MG TAB PO SCH (07:50)
[2021-10-30] MEDS: PANTOPRAZOLE 40 MG TABLET PO SCH (07:50)
[2021-10-30] MEDS: hydrALAZINE HCL 10 MG TAB PO SCH ×2 (07:50→20:14)
[2021-10-30] MEDS: carvediloL 12.5 MG TAB PO SCH ×2 (07:50→20:13)
[2021-10-30] MEDS: APIXABAN 2.5 MG TABLET PO SCH ×2 (07:50→20:13)
[2021-10-30] MEDS: ZINC SULFATE 220 MG CAP PO SCH (07:51)
[2021-10-30] MEDS: cloNIDine HCL 0.1 MG TAB PO SCH ×2 (07:51→20:13)
[2021-10-30] MEDS: ASCORBIC ACID 500 MG TAB PO SCH (07:51)
[2021-10-30] MEDS: FUROSEMIDE 40 MG TAB PO SCH ×2 (07:51→16:05)
[2021-10-30] MEDS: SPIRONOLACTONE 25 MG TAB PO SCH (07:51)
[2021-10-30] MEDS: CALCIUM CARB-VIT D 500 MG-5 MCG TAB PO SCH ×3 (07:51→16:05)
[2021-10-30] MEDS: ONDANSETRON ODT 4 MG TAB PO SCH ×3 (07:52→20:12)
[2021-10-30] MEDS: LACTOBACILLUS ACIDOPH & BULGAR 1 EACH PACKET PO SCH (07:52)
[2021-10-30] MEDS: INSULIN ASPART (NovoLOG) 100 UNIT/ML VIAL SQ SCH ×7 (07:53→20:44)
[2021-10-30] MEDS: MULTIVITAMINS, THERA 1 EACH TAB PO SCH (07:53)
[2021-10-30] MEDS: SYMBICORT 160-4.5 MCG INHALER INHALATION SCH ×2 (09:31→19:05)
[2021-10-30] MEDS: IPRATROPIUM-ALBUTEROL 3 ML NEB INHALATION SCH ×4 (09:31→19:05)
[2021-10-30] MEDS: MAGNESIUM HYDROXIDE 2,400 MG/10 ML CUP PO PRN (09:45)
[2021-10-30] MEDS: METOCLOPRAMIDE 5 MG/ML 2 ML VIAL IVP PRN ×2 (09:45→18:16)
--- NOTE | 2021-10-30 10:54 | P.PN ---
Subjective Patient is seen in follow-up for acute kidney injury. Renal function stable as of yesterday. On oral Lasix. Good urine output. No vomiting or diarrhea. Feels nauseous today. Oral intake fair. On 5 L nasal cannula. Vital signs are stable. General: Awake and alert. HEENT: Head exam is unremarkable. On nasal cannula. LUNGS: Breath sounds decreased. HEART: Rate and Rhythm are regular. ABDOMEN: Soft, no distention. EXTREMITITES: 1+ edema. Objective - Vital Signs Vital signs: Vital Signs Temp 98.1 F 10/30/21 08:00 Pulse 60 10/30/21 09:42 Resp 18 10/30/21 08:00 BP 158/51 10/30/21 08:00 Pulse Ox 96 10/30/21 08:00 Intake & Output 10/29/21 10/30/21 10/30/21 18:59 06:59 18:59 Intake Total 180 Balance 180 Intake: Oral 180 Other: Voiding Method Toilet Toilet Toilet # Voids 2 3 - Labs CBC & Chem 7: 10/29/21 07:15 10/29/21 07:15 Labs: Abnormal Lab Results - Last 24 Hours (Table) 10/29/21 10/29/21 10/29/21 Range/Units 11:41 16:31 20:28 POC Glucose (mg/dL) 157 H 130 H 200 H (75-99) mg/dL 10/30/21 Range/Units 07:11 POC Glucose (mg/dL) 167 H (75-99) mg/dL Microbiology - Last 24 Hours (Table) 10/26/21 00:42 Blood Culture - Preliminary Blood No Growth after 96 hours 10/25/21 23:15 Blood Culture - Preliminary Blood No Growth after 96 hours 10/25/21 23:00 Blood Culture - Preliminary Blood No Growth after 96 hours Assessment and Plan Plan: Assessment: 1. Acute kidney injury secondary to ATN secondary to hemodynamic instability as well as vancomycin/gentamicin use. UA benign. No hydronephrosis noted on CAT scan done 10/21/2021.. Baseline creatinine near 1. Stable at 1.86 as of yesterday. 2. Enterococcus UTI on antibiotics. ID following. 3. Volume overload. 4. History of rheumatoid arthritis. 5. Diabetes. 6. Benign hypertension. Stable. Plan: Maintain oral Lasix. 1500 mL fluid resection. Encouraged oral intake. Avoid nephrotoxins. Continue to monitor renal function and urine output. Morning labs pending.
[2021-10-30 11:10] LABS: Glucose,Whole Blood 175 mg/dL (75-99)
[2021-10-30] MEDS ORDERED: bisacodyL 10 MG SUPP RECTAL STA (11:36)
[2021-10-30 11:39] LABS: Basophils # (A) 0.05 X 10*3/uL (0.00-0.10); Basophils % (A) 0.6 %; Eosinophils # (A) 0.21 X 10*3/uL (0.04-0.35); Eosinophils % (A) 2.4 %; HCT 35.9 % (37.2-46.3); HGB 10.9 g/dL (12.0-15.0); Immature Grans, Automated 1.5 %; Lymphocytes # (A) 1.77 X 10*3/uL (0.90-5.00); Lymphocytes % (A) 20.2 %; MCH 28.8 pg (27.0-32.0); MCHC 30.4 g/dL (32.0-37.0); MCV 94.7 fL (80.0-97.0); Mean Platelet Volume 10.2 fL (9.5-12.2); Monocytes # (A) 0.85 X 10*3/uL (0.20-1.00); Monocytes % (A) 9.7 %; NRBC Per 100 WBC 0 /100 WBCS (0.0-0.0); Neutrophils # (A) 5.74 X 10*3/uL (1.80-7.70); Neutrophils % (A) 65.6 %; Platelet Count 216 X 10*3/uL (140-440); RBC 3.79 X 10*6/uL (4.10-5.20); RDW 15.9 % (11.5-14.5); WBC 8.75 X 10*3/uL (4.50-10.00)
[2021-10-30 11:58] LABS: African American GFR (CKD) 25.7 (60.0-200.0); Anion Gap 15.9 mmol/L (10.00-18.00); BUN/Creat Ratio 11.62 Ratio (12.00-20.00); Blood Urea Nitrogen 23.7 mg/dL (9.0-27.0); Calcium 9.6 mg/dL (8.7-10.3); Magnesium 2.9 mg/dL (1.5-2.4); Non-African American GFR(CKD) 22.1 (60.0-200.0); Potassium 4.3 mmol/L (3.5-5.5)
[2021-10-30 16:25] LABS: Glucose,Whole Blood 166 mg/dL (75-99)
[2021-10-30] MEDS: MIRTAZAPINE 15 MG TAB PO SCH (20:11)
[2021-10-30] MEDS: SERTRALINE 50 MG TAB PO SCH (20:13)
[2021-10-30] MEDS: DOCUSATE 100 MG CAP PO SCH (20:13)
[2021-10-30 20:43] LABS: Glucose,Whole Blood 175 mg/dL (75-99)
[2021-10-31] MEDS: HYDROcodone/APAP 7.5-325MG 1 EACH TAB PO PRN ×2 (00:18→20:53)
[2021-10-31] MEDS: LEVOTHYROXINE 125 MCG TAB PO SCH (06:15)
[2021-10-31 06:57] LABS: Glucose,Whole Blood 154 mg/dL (75-99)
[2021-10-31] MEDS: INSULIN ASPART (NovoLOG) 100 UNIT/ML VIAL SQ SCH ×7 (08:46→20:54)
[2021-10-31] MEDS: METOCLOPRAMIDE 5 MG/ML 2 ML VIAL IVP PRN (08:47)
[2021-10-31] MEDS: SYMBICORT 160-4.5 MCG INHALER INHALATION SCH ×2 (09:29→20:05)
[2021-10-31] MEDS: IPRATROPIUM-ALBUTEROL 3 ML NEB INHALATION SCH ×4 (09:29→20:05)
--- NOTE | 2021-10-31 09:51 | P.PN ---
Subjective Patient is seen in follow-up for acute kidney injury. Creatinine 2.0 yesterday. Morning labs pending. On oral Lasix. Good urine output. No vomiting or diarrhea. Oral intake fair. On 5 L nasal cannula. No active complaints. Wants to go home. Vital signs are stable. General: Awake and alert. HEENT: Head exam is unremarkable. On nasal cannula. LUNGS: Breath sounds decreased. HEART: Rate and Rhythm are regular. ABDOMEN: Soft, no distention. EXTREMITITES: 1+ edema. Objective - Vital Signs Vital signs: Vital Signs Temp 98.2 F 10/31/21 07:15 Pulse 68 10/31/21 09:42 Resp 18 10/31/21 07:15 BP 129/75 10/31/21 07:15 Pulse Ox 96 10/31/21 07:15 Intake & Output 10/30/21 10/31/21 10/31/21 18:59 06:59 18:59 Intake Total 460 240 Balance 460 240 Intake: Oral 460 240 Other: Voiding Method Toilet Toilet # Voids 4 2 # Bowel Movements 2 1 - Labs CBC & Chem 7: 10/30/21 08:00 10/30/21 08:00 Labs: Abnormal Lab Results - Last 24 Hours (Table) 10/30/21 10/30/21 10/30/21 Range/Units 08:00 08:00 11:09 RBC 3.79 L (4.10-5.20) X 10*6/uL Hgb 10.9 L (12.0-15.0) g/dL Hct 35.9 L (37.2-46.3) % MCHC 30.4 L (32.0-37.0) g/dL RDW 15.9 H (11.5-14.5) % Immature Gran # 0.13 H (0.00-0.04) X 10*3/uL Chloride 91 L (96-109) mmol/L Carbon Dioxide 29.0 H (20.0-27.5) mmol/L Creatinine 2.0 H (0.6-1.5) mg/dL Est GFR (CKD-EPI)AfAm 25.7 L (60.0-200.0) Est GFR (CKD-EPI)NonAf 22.1 L (60.0-200.0) BUN/Creatinine Ratio 11.62 L (12.00-20.00) Ratio Glucose 163 H (70-110) mg/dL POC Glucose (mg/dL) 175 H (75-99) mg/dL Magnesium 2.9 H (1.5-2.4) mg/dL 10/30/21 10/30/21 10/31/21 Range/Units 16:24 20:42 06:56 RBC (4.10-5.20) X 10*6/uL Hgb (12.0-15.0) g/dL Hct (37.2-46.3) % MCHC (32.0-37.0) g/dL RDW (11.5-14.5) % Immature Gran # (0.00-0.04) X 10*3/uL Chloride (96-109) mmol/L Carbon Dioxide (20.0-27.5) mmol/L Creatinine (0.6-1.5) mg/dL Est GFR (CKD-EPI)AfAm (60.0-200.0) Est GFR (CKD-EPI)NonAf (60.0-200.0) BUN/Creatinine Ratio (12.00-20.00) Ratio Glucose (70-110) mg/dL POC Glucose (mg/dL) 166 H 175 H 154 H (75-99) mg/dL Magnesium (1.5-2.4) mg/dL Microbiology - Last 24 Hours (Table) 10/26/21 00:42 Blood Culture - Preliminary Blood No Growth after 120 hours 10/25/21 23:00 Blood Culture - Preliminary Blood No Growth after 120 hours 10/25/21 23:15 Blood Culture - Preliminary Blood No Growth after 120 hours Assessment and Plan Plan: Assessment: 1. Acute kidney injury secondary to ATN secondary to hemodynamic instability as well as vancomycin/gentamicin use. UA benign. No hydronephrosis noted on CAT scan done 10/21/2021.. Baseline creatinine near 1. Creatinine 2 yesterday. 2. Enterococcus UTI on antibiotics. ID following. 3. Volume overload. Improving with diuresis. 4. History of rheumatoid arthritis. 5. Diabetes. 6. Benign hypertension. Stable. Plan: Maintain oral Lasix. 1500 mL fluid resection. Encouraged oral intake. Avoid nephrotoxins. Continue to monitor renal function and urine output. Morning labs pending.
[2021-10-31] MEDS: LACTOBACILLUS ACIDOPH & BULGAR 1 EACH PACKET PO SCH (10:05)
[2021-10-31] MEDS: APIXABAN 2.5 MG TABLET PO SCH ×2 (10:11→20:52)
[2021-10-31] MEDS: ASCORBIC ACID 500 MG TAB PO SCH (10:11)
[2021-10-31] MEDS: amLODIPine 10 MG TAB PO SCH (10:12)
[2021-10-31] MEDS: carvediloL 12.5 MG TAB PO SCH ×2 (10:12→20:52)
[2021-10-31] MEDS: hydrALAZINE HCL 10 MG TAB PO SCH ×2 (10:12→20:52)
[2021-10-31] MEDS: cloNIDine HCL 0.1 MG TAB PO SCH ×2 (10:13→20:52)
[2021-10-31] MEDS: CALCIUM CARB-VIT D 500 MG-5 MCG TAB PO SCH ×3 (10:13→15:31)
[2021-10-31] MEDS: FUROSEMIDE 40 MG TAB PO SCH ×2 (10:15→15:30)
[2021-10-31] MEDS: PANTOPRAZOLE 40 MG TABLET PO SCH (10:16)
[2021-10-31] MEDS: MULTIVITAMINS, THERA 1 EACH TAB PO SCH (10:16)
[2021-10-31] MEDS: ZINC SULFATE 220 MG CAP PO SCH (10:18)
[2021-10-31] MEDS: ONDANSETRON ODT 4 MG TAB PO SCH ×3 (10:19→20:52)
[2021-10-31] MEDS: SPIRONOLACTONE 25 MG TAB PO SCH (10:19)
[2021-10-31 11:21] LABS: Glucose,Whole Blood 172 mg/dL (75-99)
[2021-10-31 12:24] LABS: African American GFR (CKD) 23.4 (60.0-200.0); BUN/Creat Ratio 11.86 Ratio (12.00-20.00); Blood Urea Nitrogen 26.1 mg/dL (9.0-27.0); Calcium 9.4 mg/dL (8.7-10.3); Magnesium 3.1 mg/dL (1.5-2.4); Non-African American GFR(CKD) 20.2 (60.0-200.0); Potassium 4.4 mmol/L (3.5-5.5)
[2021-10-31 16:25] LABS: Glucose,Whole Blood 168 mg/dL (75-99)
[2021-10-31] MEDS: guaiFENesin-DM 100-10MG/5ML 10 ML CUP PO PRN ×2 (18:15→23:15)
[2021-10-31 20:45] LABS: Glucose,Whole Blood 144 mg/dL (75-99)
[2021-10-31] MEDS: DOCUSATE 100 MG CAP PO SCH (20:52)
[2021-10-31] MEDS: MIRTAZAPINE 15 MG TAB PO SCH (20:52)
[2021-10-31] MEDS: SERTRALINE 50 MG TAB PO SCH (20:53)
--- NOTE | 2021-11-01 07:26 | XR ---
EXAMINATION TYPE: XR chest 1V portable DATE OF EXAM: 10/31/2021 CLINICAL HISTORY: New onset cough. TECHNIQUE: Single AP portable upright view of the chest is obtained. COMPARISON: Chest x-ray from 6 days earlier FINDINGS: Chronic parenchymal changes are present bilaterally. No new focal airspace opacity, pleura l effusion, or pneumothorax is seen. Persistent cardiomegaly with atherosclerotic thoracic aorta. Oss eous structures are intact. IMPRESSION: Chronic changes and cardiomegaly without acute pulmonary process.
[2021-11-01] MEDS: SYMBICORT 160-4.5 MCG INHALER INHALATION SCH (07:52)
[2021-11-01] MEDS: IPRATROPIUM-ALBUTEROL 3 ML NEB INHALATION SCH ×2 (07:52→11:20)
[2021-11-01 07:53] VITALS: RESP 20
[2021-11-01] MEDS: INSULIN ASPART (NovoLOG) 100 UNIT/ML VIAL SQ SCH ×4 (08:28→12:28)
[2021-11-01] MEDS: MULTIVITAMINS, THERA 1 EACH TAB PO SCH (08:51)
[2021-11-01] MEDS: hydrALAZINE HCL 10 MG TAB PO SCH (08:52)
[2021-11-01] MEDS: LEVOTHYROXINE 125 MCG TAB PO SCH (08:52)
[2021-11-01] MEDS: APIXABAN 2.5 MG TABLET PO SCH (08:52)
[2021-11-01] MEDS: SPIRONOLACTONE 25 MG TAB PO SCH (08:52)
[2021-11-01] MEDS: ONDANSETRON ODT 4 MG TAB PO SCH (08:52)
[2021-11-01] MEDS: amLODIPine 10 MG TAB PO SCH (08:52)
[2021-11-01] MEDS: PANTOPRAZOLE 40 MG TABLET PO SCH (08:52)
[2021-11-01] MEDS: CALCIUM CARB-VIT D 500 MG-5 MCG TAB PO SCH ×2 (08:52→12:28)
[2021-11-01] MEDS: ZINC SULFATE 220 MG CAP PO SCH (08:52)
[2021-11-01] MEDS: carvediloL 12.5 MG TAB PO SCH (08:52)
[2021-11-01] MEDS: ASCORBIC ACID 500 MG TAB PO SCH (08:52)
[2021-11-01] MEDS: cloNIDine HCL 0.1 MG TAB PO SCH (08:52)
[2021-11-01] MEDS: FUROSEMIDE 40 MG TAB PO SCH (08:52)
[2021-11-01] MEDS: LACTOBACILLUS ACIDOPH & BULGAR 1 EACH PACKET PO SCH (08:53)
[2021-11-01 09:00] LABS: Basophils # (A) 0.04 X 10*3/uL (0.00-0.10); Basophils % (A) 0.5 %; Eosinophils # (A) 0.23 X 10*3/uL (0.04-0.35); Eosinophils % (A) 2.7 %; HCT 34.1 % (37.2-46.3); HGB 10.3 g/dL (12.0-15.0); Immature Grans, Automated 1.1 %; Lymphocytes % (A) 24.5 %; MCH 28.9 pg (27.0-32.0); MCHC 30.2 g/dL (32.0-37.0); MCV 95.8 fL (80.0-97.0); Mean Platelet Volume 10.4 fL (9.5-12.2); Monocytes # (A) 0.85 X 10*3/uL (0.20-1.00); Monocytes % (A) 9.9 %; NRBC Per 100 WBC 0 /100 WBCS (0.0-0.0); Neutrophils # (A) 5.26 X 10*3/uL (1.80-7.70); Neutrophils % (A) 61.3 %; Platelet Count 244 X 10*3/uL (140-440); RBC 3.56 X 10*6/uL (4.10-5.20); RDW 15.8 % (11.5-14.5); WBC 8.57 X 10*3/uL (4.50-10.00)
[2021-11-01 09:12] LABS: African American GFR (CKD) 21.1 (60.0-200.0); Anion Gap 12.3 mmol/L (10.00-18.00); BUN/Creat Ratio 11.58 Ratio (12.00-20.00); Blood Urea Nitrogen 27.8 mg/dL (9.0-27.0); Calcium 9.5 mg/dL (8.7-10.3); Carbon Dioxide 32.7 mmol/L (20.0-27.5); Magnesium 2.8 mg/dL (1.5-2.4); Non-African American GFR(CKD) 18.2 (60.0-200.0); Potassium 4.7 mmol/L (3.5-5.5)
--- NOTE | 2021-11-01 09:52 | P.PN ---
Subjective Patient is seen in follow-up for acute kidney injury. Creatinine 2.4 today. On oral Lasix. Patient states she has good urine output. No vomiting or diarrhea. Oral intake fair. On 5 L nasal cannula. No active complaints. Vital signs are stable. General: Awake and alert. HEENT: Head exam is unremarkable. On nasal cannula. LUNGS: Breath sounds decreased. HEART: Rate and Rhythm are regular. ABDOMEN: Soft, no distention. EXTREMITITES: 1+ edema. Chronic changes noted. Objective - Vital Signs Vital signs: Vital Signs Temp 98.2 F 11/01/21 02:00 Pulse 58 L 11/01/21 08:02 Resp 20 11/01/21 08:02 BP 123/55 11/01/21 02:00 Pulse Ox 98 11/01/21 07:52 Intake & Output 10/31/21 11/01/21 11/01/21 18:59 06:59 18:59 Intake Total 240 Balance 240 Intake: Oral 240 Other: Voiding Method Toilet # Voids 4 - Labs CBC & Chem 7: 11/01/21 05:56 11/01/21 05:56 Labs: Abnormal Lab Results - Last 24 Hours (Table) 10/31/21 10/31/21 10/31/21 Range/Units 07:02 11:17 16:21 RBC (4.10-5.20) X 10*6/uL Hgb (12.0-15.0) g/dL Hct (37.2-46.3) % MCHC (32.0-37.0) g/dL RDW (11.5-14.5) % Immature Gran # (0.00-0.04) X 10*3/uL Chloride 91 L (96-109) mmol/L Carbon Dioxide 32.0 H (20.0-27.5) mmol/L BUN (9.0-27.0) mg/dL Creatinine 2.2 H (0.6-1.5) mg/dL Est GFR (CKD-EPI)AfAm 23.4 L (60.0-200.0) Est GFR (CKD-EPI)NonAf 20.2 L (60.0-200.0) BUN/Creatinine Ratio 11.86 L (12.00-20.00) Ratio Glucose 142 H (70-110) mg/dL POC Glucose (mg/dL) 172 H 168 H (75-99) mg/dL Magnesium 3.1 H (1.5-2.4) mg/dL 10/31/21 11/01/21 11/01/21 Range/Units 20:43 05:56 05:56 RBC 3.56 L (4.10-5.20) X 10*6/uL Hgb 10.3 L (12.0-15.0) g/dL Hct 34.1 L (37.2-46.3) % MCHC 30.2 L (32.0-37.0) g/dL RDW 15.8 H (11.5-14.5) % Immature Gran # 0.09 H (0.00-0.04) X 10*3/uL Chloride 91 L (96-109) mmol/L Carbon Dioxide 32.7 H (20.0-27.5) mmol/L BUN 27.8 H (9.0-27.0) mg/dL Creatinine 2.4 H (0.6-1.5) mg/dL Est GFR (CKD-EPI)AfAm 21.1 L (60.0-200.0) Est GFR (CKD-EPI)NonAf 18.2 L (60.0-200.0) BUN/Creatinine Ratio 11.58 L (12.00-20.00) Ratio Glucose 131 H (70-110) mg/dL POC Glucose (mg/dL) 144 H (75-99) mg/dL Magnesium 2.8 H (1.5-2.4) mg/dL Microbiology - Last 24 Hours (Table) 10/26/21 00:42 Blood Culture - Final Blood No Growth after 144 hours 10/25/21 23:15 Blood Culture - Final Blood No Growth after 144 hours 10/25/21 23:00 Blood Culture - Final Blood No Growth after 144 hours Assessment and Plan Plan: Assessment: 1. Acute kidney injury secondary to ATN secondary to hemodynamic instability as well as vancomycin/gentamicin use. UA benign. No hydronephrosis noted on CAT scan done 10/21/2021. Baseline creatinine near 1. Creatinine 2.4 today. Renal function worsening from diuresis. 2. Enterococcus UTI on antibiotics. ID following. 3. Volume overload. Improving with diuresis. 4. History of rheumatoid arthritis. 5. Diabetes. 6. Benign hypertension. Stable. Plan: Maintain oral Lasix - decrease dose to 40 mg once daily. 1500 mL fluid resection. Encouraged oral intake. Avoid nephrotoxins. Continue to monitor renal function and urine output. I advised patient to maintain 40-45 ultrafiltration per day and follow a low- salt diet. She is to monitor her weight closely and to call physician if gains more than 3 pounds in 1 week duration or edema worsens. Repeat BMP and magnesium level 2-3 days postdischarge. Follow up outpatient 1 week.
--- NOTE | 2021-11-01 10:54 | P.PN ---
Subjective Progress Note Date: 10/30/21 This is a pleasant 81 years old female with multiple visits to the emergency room and she was recently hospitalized as inpatient last month for acute COPD exacerbation and found to have small nonocclusive pulmonary emboli of the lingula and currently she is on Eliquis,Patient also has history of multiple abdominal surgeries and prior history of bowel obstruction requiring She presents this time with nausea vomiting, she was recently started on antibiotic for UTI, and on admission she was hypertensive 222/111 She was recently visited the emergency room on 10/21 for abdominal pain, At that time CT of the abdomen and pelvis: No acute process seen Patient says that she has pain in the left flank area yesterday she was sitting at her assisted living home where she felt warm nauseated and vomited 3 times with no blood, since that she's been complaining of from this pain in her left flank area. Patient complaining of from constipation, she had a suppository followed by large bowel movement. Bladder scan was checked and it was 112. She denies smoking, alcohol or illicit drugs Patient is unaware she is diabetic, however her hemoglobin A1c was elevated 8.4% recently. Currently patient is hemodynamically stable, blood pressure improved 168/80, patient requiring 5 L of oxygen via nasal cannula to keep saturation at 96% (which is her baseline, on September also she was on 5 L oxygen via nasal olvin maggie) CBC is unremarkable, BMP showed creatinine 1.1 which is baseline. Sodium 136. Liver enzymes elevated. TSH slightly up 5.01 but normal free T4 1 0.2. Chest x-ray: Mild bibasilar opacity, probably atelectasis EKG: Normal sinus rhythm at [address]-T changes and QTC 417. Urinalysis from 10/21 showing evidence of infection with large leukocyte esterase and WBCs 30 which is elevated. Urine culture is growing resistant enterococcus faecium In the emergency room she received Benadryl, gentamicin, Argyle 7.5 and feculent Hemoglobin A1c was elevated on 09/27/2011 at 8.4 10/27/2021 Patient nausea vomiting stopped, she is awake and alert, she still have meddle back pain and left side chest pain since she fell about 2 weeks ago. Rib x-rays negative for fracture Thoracic x-ray showing osteoporotic multiple compression fractures with every 4 to deformity without change compared to recent exam. There is progression of the kyphosis compared to old chest x-ray of the 07/27/2021 No dysuria or urgency. She still been treated for UTI enterococcus become with IV vancomycin however her creatinine went up today to 1.8, Bladder scan showing 150-200 mL only, urine analysis showed trace protein, small leukocyte esterase. Patient already received IV vancomycin this morning, discussed with staff to check with pharmacy about dosing in view of worsening kidney function. Also oth er medications are checked we'll try to avoid nephrotoxic medication, Aldactone was held, Remeron and Eliquis ptosis woke up and to have. We'll start patient on normal saline at 75 mm/h No evidence of hypotension episodes actually her blood pressure on the high side 133/76, we'll start small dose of hydralazine 10 mg twice a day. Nephrology team were consulted patient had very good large bowel movement after suppository yesterday 10/28/2021 Patient admitted for nausea vomiting and UTI secondary to arterial because faecalis. Also she fell 2 weeks ago and she has tenderness in the left lateral chest wall secondary to multiple compression fractures which were ongoing with osteoporosis. Patient was started on calcium and vitamin D. Orthopedic team consult. May benefit from possible brace. Also patient new-onset diabetes with hemoglobin A1c 8.4%, she was started on insulin sliding scale and check for his work 2-3 units with meals. Her creatinine went up 1.1-1.8 yesterday at 1.7 today. Antibiotics were adjusted. Vancomycin attempted to daptomycin, random vancomycin level is 26.9 which is within the range. Patient Eliquis dose cut in half because of worsening kidney function as well as Remeron dose lower to 50 mg down to 7.5 mg. IV fluids were discontinued with the patient is On oral Lasix 40 mg twice a day. Oxygen at baseline of 5 L/m. 10/29/2021 Patient is currently sitting in the recliner.. On 5 L oxygen via nasal cannula. Patient complains of shortness of breath and also lower back pain. Lumbar spine x-ray showed superior endplate fracture with anterior wedge deformity of L2 is new from 05/08/2021 Orthopedic surgery recommends conservative treatment at this time. Patient also being treated for urinary tract infection with urine culture positive for Enterococcus species. Patient is currently on daptomycin. ID is following. Patient has been afebrile. Laboratory data showed WBC 9.25 hemoglobin 10.5 and platelets 261 Sodium 132 potassium 4.3 chloride 91 bicarb is 35 BUN 26 and creatinine 1.86 and CRP 2.6 Patient is being continued oral Lasix and fluid restriction. 10/30/2021 Patient is currently sitting in the recliner. Requiring 5 L oxygen via nasal cannula as per home regimen shortness of breath is better. But still having exertional dyspnea. No complaints of chest pain. Leg swelling is improving and patient is on oral Lasix. Leg swelling is improving. Follow-up renal function with creatinine level 2.0 today. Nephrology and ID is on board. Patient is on antibiotics in the form of daptomycin. Patient has been afebrile. No nausea or vomiting or abdominal pain or diarrhea. Tolerating oral diet. Current medications reviewed. Objective - Vital Signs Vital signs: Vital Signs Temp 98.1 F 10/30/21 14:00 Pulse 64 10/30/21 14:00 Resp 16 10/30/21 14:00 BP 111/65 10/30/21 14:00 Pulse Ox 96 10/30/21 14:00 Intake & Output 10/29/21 10/30/21 10/30/21 18:59 06:59 18:59 Intake Total 180 Balance 180 Intake: Oral 180 Other: Voiding Method Toilet Toilet Toilet # Voids 2 3 - Exam - Exam GENERAL: The patient is alert and oriented x3, not in any acute distress. Obese HEENT: Pupils are round and equally reacting to light. EOMI. No scleral icterus. No conjunctival pallor. Normocephalic, atraumatic. No pharyngeal erythema. No thyromegaly. CARDIOVASCULAR: S1 and S2 present. No murmurs, rubs, or gallops. -PULMONARY: Bilateral expiratory wheezing present.. Left upper lateral chest wall tenderness, mild ABDOMEN: Soft, nontender, nondistended, normoactive bowel sounds. No palpable organomegaly. MUSCULOSKELETAL: No joint swelling or deformity. EXTREMITIES: No cyanosis, clubbing. Patient does have bilateral lower extremity edema. NEUROLOGICAL: Gross neurological examination did not reveal any focal deficits. SKIN: No rashes. no petechiae. - Labs CBC & Chem 7: 11/01/21 05:56 11/01/21 05:56 Labs: Abnormal Lab Results - Last 24 Hours (Table) 10/29/21 10/29/21 10/30/21 Range/Units 16:31 20:28 07:11 RBC (4.10-5.20) X 10*6/uL Hgb (12.0-15.0) g/dL Hct (37.2-46.3) % MCHC (32.0-37.0) g/dL RDW (11.5-14.5) % Immature Gran # (0.00-0.04) X 10*3/uL Chloride (96-109) mmol/L Carbon Dioxide (20.0-27.5) mmol/L Creatinine (0.6-1.5) mg/dL Est GFR (CKD-EPI)AfAm (60.0-200.0) Est GFR (CKD-EPI)NonAf (60.0-200.0) BUN/Creatinine Ratio (12.00-20.00) Ratio Glucose (70-110) mg/dL POC Glucose (mg/dL) 130 H 200 H 167 H (75-99) mg/dL Magnesium (1.5-2.4) mg/dL 10/30/21 10/30/21 10/30/21 Range/Units 08:00 08:00 11:09 RBC 3.79 L (4.10-5.20) X 10*6/uL Hgb 10.9 L (12.0-15.0) g/dL Hct 35.9 L (37.2-46.3) % MCHC 30.4 L (32.0-37.0) g/dL RDW 15.9 H (11.5-14.5) % Immature Gran # 0.13 H (0.00-0.04) X 10*3/uL Chloride 91 L (96-109) mmol/L Carbon Dioxide 29.0 H (20.0-27.5) mmol/L Creatinine 2.0 H (0.6-1.5) mg/dL Est GFR (CKD-EPI)AfAm 25.7 L (60.0-200.0) Est GFR (CKD-EPI)NonAf 22.1 L (60.0-200.0) BUN/Creatinine Ratio 11.62 L (12.00-20.00) Ratio Glucose 163 H (70-110) mg/dL POC Glucose (mg/dL) 175 H (75-99) mg/dL Magnesium 2.9 H (1.5-2.4) mg/dL Microbiology - Last 24 Hours (Table) 10/26/21 00:42 Blood Culture - Preliminary Blood No Growth after 96 hours 10/25/21 23:15 Blood Culture - Preliminary Blood No Growth after 96 hours 10/25/21 23:00 Blood Culture - Preliminary Blood No Growth after 96 hours Assessment and Plan Assessment: acute urinary tract infection, With continued ongoing infection and urine culture growing enterococcus faecium (The same organism detected in the urine, last year) Acute kidney injury Likely due to ATN due to hemodynamic changes and antibiotic use in the form of vancomycin. Change to Dapto now. New L2 compression fracture. Nausea vomiting , improving Possible new onset diabetes mellitus with hemoglobin A1c 8.4%, repeat the test Hypertension with urgency, present on admission, currently improved Osteoporosis with multiple compression fracture deformity of the thoracic spine vertebrae, with back pain secondary to fall 2 weeks prior to admission COPD, not acute exacerbation. With chronic hypoxic respiratory failure 4-5 L/m at home Recent history of small nonocclusive PE, currently on Eliquis, failed warfarin for the same history of PE Evidence of chronic kidney disease, stage III history of multiple abdominal surgeries and prior history of bowel obstruction requiring History of rheumatoid arthritis History of diverticular disease History of GERD Hypothyroidism Chronic back pain on Argyle 7.5 History of coronary artery disease. Plan: This is a pleasant 81 years old female who presents with nausea vomiting. Patient is being treated for acute urinary tract infection and acute kidney injury. Patient will be continued for Lasix and follow-up renal function. Antibiotics in the form of IV daptomycin for urinary tract infection with Enterococcus faecium. ID and nephrology is following. Currently she is on Coreg 25 mg, clonidine 0.3 mg twice a day, Lasix 40 mg twice a day, and Aldactone 25 mg daily. She is also on Norvasc 10 mg and keep monitoring blood pressure . , also she is started on hydralazine 10 mg twice a day Start the patient on NovoLog 2 units with meals. Continue on insulin sliding scale. Start calcium and vitamin D. Orthopedic team consult Labs and medication were reviewed. Monitor lytes and vitals. DVT and GI prophylaxis. Further recommendations depends on the clinical course of the patient DVT prophylaxis: Eliquis GI Prophylaxis: Ppi PT/OT: Pending Prognosis is guarded Discussed with [facility] physician and recommended inpatient admission due to above multiple medical problems. Time with Patient: Greater than 30
--- NOTE | 2021-11-01 10:57 | P.PN ---
Subjective Progress Note Date: 10/31/21 This is a pleasant 81 years old female with multiple visits to the emergency room and she was recently hospitalized as inpatient last month for acute COPD exacerbation and found to have small nonocclusive pulmonary emboli of the lingula and currently she is on Eliquis,Patient also has history of multiple abdominal surgeries and prior history of bowel obstruction requiring She presents this time with nausea vomiting, she was recently started on antibiotic for UTI, and on admission she was hypertensive 222/111 She was recently visited the emergency room on 10/21 for abdominal pain, At that time CT of the abdomen and pelvis: No acute process seen Patient says that she has pain in the left flank area yesterday she was sitting at her assisted living home where she felt warm nauseated and vomited 3 times with no blood, since that she's been complaining of from this pain in her left flank area. Patient complaining of from constipation, she had a suppository followed by large bowel movement. Bladder scan was checked and it was 112. She denies smoking, alcohol or illicit drugs Patient is unaware she is diabetic, however her hemoglobin A1c was elevated 8.4% recently. Currently patient is hemodynamically stable, blood pressure improved 168/80, patient requiring 5 L of oxygen via nasal cannula to keep saturation at 96% (which is her baseline, on September also she was on 5 L oxygen via nasal olvin maggie) CBC is unremarkable, BMP showed creatinine 1.1 which is baseline. Sodium 136. Liver enzymes elevated. TSH slightly up 5.01 but normal free T4 1 0.2. Chest x-ray: Mild bibasilar opacity, probably atelectasis EKG: Normal sinus rhythm at [address]-T changes and QTC 417. Urinalysis from 10/21 showing evidence of infection with large leukocyte esterase and WBCs 30 which is elevated. Urine culture is growing resistant enterococcus faecium In the emergency room she received Benadryl, gentamicin, Paxton 7.5 and feculent Hemoglobin A1c was elevated on 09/27/2011 at 8.4 10/27/2021 Patient nausea vomiting stopped, she is awake and alert, she still have meddle back pain and left side chest pain since she fell about 2 weeks ago. Rib x-rays negative for fracture Thoracic x-ray showing osteoporotic multiple compression fractures with every 4 to deformity without change compared to recent exam. There is progression of the kyphosis compared to old chest x-ray of the 07/27/2021 No dysuria or urgency. She still been treated for UTI enterococcus become with IV vancomycin however her creatinine went up today to 1.8, Bladder scan showing 150-200 mL only, urine analysis showed trace protein, small leukocyte esterase. Patient already received IV vancomycin this morning, discussed with staff to check with pharmacy about dosing in view of worsening kidney function. Also oth er medications are checked we'll try to avoid nephrotoxic medication, Aldactone was held, Remeron and Eliquis ptosis woke up and to have. We'll start patient on normal saline at 75 mm/h No evidence of hypotension episodes actually her blood pressure on the high side 133/76, we'll start small dose of hydralazine 10 mg twice a day. Nephrology team were consulted patient had very good large bowel movement after suppository yesterday 10/28/2021 Patient admitted for nausea vomiting and UTI secondary to arterial because faecalis. Also she fell 2 weeks ago and she has tenderness in the left lateral chest wall secondary to multiple compression fractures which were ongoing with osteoporosis. Patient was started on calcium and vitamin D. Orthopedic team consult. May benefit from possible brace. Also patient new-onset diabetes with hemoglobin A1c 8.4%, she was started on insulin sliding scale and check for his work 2-3 units with meals. Her creatinine went up 1.1-1.8 yesterday at 1.7 today. Antibiotics were adjusted. Vancomycin attempted to daptomycin, random vancomycin level is 26.9 which is within the range. Patient Eliquis dose cut in half because of worsening kidney function as well as Remeron dose lower to 50 mg down to 7.5 mg. IV fluids were discontinued with the patient is On oral Lasix 40 mg twice a day. Oxygen at baseline of 5 L/m. 10/29/2021 Patient is currently sitting in the recliner.. On 5 L oxygen via nasal cannula. Patient complains of shortness of breath and also lower back pain. Lumbar spine x-ray showed superior endplate fracture with anterior wedge deformity of L2 is new from 05/08/2021 Orthopedic surgery recommends conservative treatment at this time. Patient also being treated for urinary tract infection with urine culture positive for Enterococcus species. Patient is currently on daptomycin. ID is following. Patient has been afebrile. Laboratory data showed WBC 9.25 hemoglobin 10.5 and platelets 261 Sodium 132 potassium 4.3 chloride 91 bicarb is 35 BUN 26 and creatinine 1.86 and CRP 2.6 Patient is being continued oral Lasix and fluid restriction. 10/30/2021 Patient is currently sitting in the recliner. Requiring 5 L oxygen via nasal cannula as per home regimen shortness of breath is better. But still having exertional dyspnea. No complaints of chest pain. Leg swelling is improving and patient is on oral Lasix. Leg swelling is improving. Follow-up renal function with creatinine level 2.0 today. Nephrology and ID is on board. Patient is on antibiotics in the form of daptomycin. Patient has been afebrile. No nausea or vomiting or abdominal pain or diarrhea. Tolerating oral diet. 10/31/2021 Patient is resting in the chair. Awake alert and oriented x3. Able to walk to the bathroom with minimal shortness of breath. Patient is being current on oral Lasix. No nausea vomiting abdominal pain or diarrhea. No cough or sputum production. Leg swelling is improved. Currently oral Lasix and also on antibiotics with daptomycin for urinary tract infection. Nephrology is on board. Anticipate discharge in next 24 hours. Current medications reviewed. Objective - Vital Signs Vital signs: Vital Signs Temp 98.3 F 10/31/21 20:00 Pulse 70 10/31/21 20:21 Resp 20 10/31/21 20:00 BP 152/73 10/31/21 20:00 Pulse Ox 95 10/31/21 20:00 Intake & Output 10/31/21 10/31/21 11/01/21 06:59 18:59 06:59 Intake Total 240 240 Balance 240 240 Intake: Oral 240 240 Other: Voiding Method Toilet # Voids 2 1 # Bowel Movements 1 - Exam - Exam GENERAL: The patient is alert and oriented x3, not in any acute distress. Obese HEENT: Pupils are round and equally reacting to light. EOMI. No scleral icterus. No conjunctival pallor. Normocephalic, atraumatic. No pharyngeal erythema. No thyromegaly. CARDIOVASCULAR: S1 and S2 present. No murmurs, rubs, or gallops. -PULMONARY: No wheezing. Scattered rhonchi present. Nonlabored breathing.. Left upper lateral chest wall tenderness, mild ABDOMEN: Soft, nontender, nondistended, normoactive bowel sounds. No palpable organomegaly. MUSCULOSKELETAL: No joint swelling or deformity. EXTREMITIES: No cyanosis, clubbing. Patient does have bilateral lower extremity edema. NEUROLOGICAL: Gross neurological examination did not reveal any focal deficits. SKIN: No rashes. no petechiae. - Labs CBC & Chem 7: 11/01/21 05:56 11/01/21 05:56 Labs: Abnormal Lab Results - Last 24 Hours (Table) 10/31/21 10/31/21 10/31/21 Range/Units 06:56 07:02 11:17 Chloride 91 L (96-109) mmol/L Carbon Dioxide 32.0 H (20.0-27.5) mmol/L Creatinine 2.2 H (0.6-1.5) mg/dL Est GFR (CKD-EPI)AfAm 23.4 L (60.0-200.0) Est GFR (CKD-EPI)NonAf 20.2 L (60.0-200.0) BUN/Creatinine Ratio 11.86 L (12.00-20.00) Ratio Glucose 142 H (70-110) mg/dL POC Glucose (mg/dL) 154 H 172 H (75-99) mg/dL Magnesium 3.1 H (1.5-2.4) mg/dL 10/31/21 10/31/21 Range/Units 16:21 20:43 Chloride (96-109) mmol/L Carbon Dioxide (20.0-27.5) mmol/L Creatinine (0.6-1.5) mg/dL Est GFR (CKD-EPI)AfAm (60.0-200.0) Est GFR (CKD-EPI)NonAf (60.0-200.0) BUN/Creatinine Ratio (12.00-20.00) Ratio Glucose (70-110) mg/dL POC Glucose (mg/dL) 168 H 144 H (75-99) mg/dL Magnesium (1.5-2.4) mg/dL Microbiology - Last 24 Hours (Table) 10/26/21 00:42 Blood Culture - Preliminary Blood No Growth after 120 hours 10/25/21 23:00 Blood Culture - Preliminary Blood No Growth after 120 hours 10/25/21 23:15 Blood Culture - Preliminary Blood No Growth after 120 hours Assessment and Plan Assessment: acute urinary tract infection, With continued ongoing infection and urine culture growing enterococcus faecium (The same organism detected in the urine, last year) Acute kidney injury Likely due to ATN due to hemodynamic changes and antibiotic use in the form of vancomycin. Changed to Dapto now. New L2 compression fracture. Nausea vomiting , improving Possible new onset diabetes mellitus with hemoglobin A1c 8.4%, repeat the test Hypertension with urgency, present on admission, currently improved Osteoporosis with multiple compression fracture deformity of the thoracic spine vertebrae, with back pain secondary to fall 2 weeks prior to admission COPD, not acute exacerbation. With chronic hypoxic respiratory failure 4-5 L/m at home Recent history of small nonocclusive PE, currently on Eliquis, failed warfarin for the same history of PE Evidence of chronic kidney disease, stage III history of multiple abdominal surgeries and prior history of bowel obstruction requiring History of rheumatoid arthritis History of diverticular disease History of GERD Hypothyroidism Chronic back pain on Paxton 7.5 History of coronary artery disease. Plan: This is a pleasant 81 years old female who presents with nausea vomiting. Patient is being treated for acute urinary tract infection and acute kidney injury. Patient will be continued for Lasix and follow-up renal function. Antibiotics in the form of IV daptomycin for urinary tract infection with Enterococcus faecium. ID and nephrology is following. Currently she is on Coreg 25 mg, clonidine 0.3 mg twice a day, Lasix 40 mg twice a day, and Aldactone 25 mg daily. She is also on Norvasc 10 mg and keep m onitoring blood pressure . , also she is started on hydralazine 10 mg twice a day Start the patient on NovoLog 2 units with meals. Continue on insulin sliding scale. Start calcium and vitamin D. Orthopedic team consult Labs and medication were reviewed. Monitor lytes and vitals. DVT and GI pro phylaxis. DVT prophylaxis: Eliquis GI Prophylaxis: Ppi PT/OT: Pending Prognosis is guarded Time with Patient: Greater than 30
[2021-11-01 11:03] VITALS: BP 183/72; TEMP 97.9
[2021-11-01 11:53] LABS: Glucose,Whole Blood 189 mg/dL (75-99)
[2021-11-01 11:55] VITALS: PULSE 62
[2021-11-01 13:52] VITALS: BMI 34.2
[2021-11-01] MEDS: guaiFENesin-DM 100-10MG/5ML 10 ML CUP PO PRN (15:47)
[2021-11-02] MEDS ORDERED: FUROSEMIDE 40 MG TAB PO SCH (09:00)
== END 2021-11-01 16:13 | disposition home health service (06) | DRG 689 ==
LOC: EC 19:20 → 4SSUR 23:49 → OBSVTOIN 10-29 15:58
PROVIDERS: ADMIT Hospitalist; ATTEND Hospitalist
DX: N39.0 Urinary tract infection, site not specified (principal); N17.0 Acute kidney failure with tubular necrosis; S22.000A Wedge compression fracture of unspecified thoracic vertebra, initial encounter for closed fracture; I13.0 Hypertensive heart and chronic kidney disease with heart failure and stage 1 through stage 4 chronic kidney disease, or unspecified chronic kidney disease; J96.11 Chronic respiratory failure with hypoxia; J98.11 Atelectasis; B95.2 Enterococcus as the cause of diseases classified elsewhere; E11.22 Type 2 diabetes mellitus with diabetic chronic kidney disease; E66.9 Obesity, unspecified; E78.5 Hyperlipidemia, unspecified; F41.9 Anxiety disorder, unspecified; G47.30 Sleep apnea, unspecified; G89.29 Other chronic pain; R11.2 Nausea with vomiting, unspecified; I25.10 Atherosclerotic heart disease of native coronary artery without angina pectoris; I50.9 Heart failure, unspecified; J44.9 Chronic obstructive pulmonary disease, unspecified; K59.00 Constipation, unspecified; M06.9 Rheumatoid arthritis, unspecified; M40.209 Unspecified kyphosis, site unspecified; S32.020D Wedge compression fracture of second lumbar vertebra, subsequent encounter for fracture with routine healing; S32.050D Wedge compression fracture of fifth lumbar vertebra, subsequent encounter for fracture with routine healing; M43.17 Spondylolisthesis, lumbosacral region; I16.0 Hypertensive urgency; R74.8 Abnormal levels of other serum enzymes; N18.30 Chronic kidney disease, stage 3 unspecified; T36.8X5A Adverse effect of other systemic antibiotics, initial encounter; X58.XXXA Exposure to other specified factors, initial encounter; M51.36 Other intervertebral disc degeneration, lumbar region; M81.0 Age-related osteoporosis without current pathological fracture; K21.9 Gastro-esophageal reflux disease without esophagitis; G47.33 Obstructive sleep apnea (adult) (pediatric); R05.3 Chronic cough; E89.0 Postprocedural hypothyroidism; K57.90 Diverticulosis of intestine, part unspecified, without perforation or abscess without bleeding; N60.29 Fibroadenosis of unspecified breast; I83.90 Asymptomatic varicose veins of unspecified lower extremity; Z68.34 Body mass index [BMI] 34.0-34.9, adult; Z91.81 History of falling; Z99.81 Dependence on supplemental oxygen; Z90.49 Acquired absence of other specified parts of digestive tract; Z90.710 Acquired absence of both cervix and uterus; Z96.652 Presence of left artificial knee joint; Z90.721 Acquired absence of ovaries, unilateral; Z88.6 Allergy status to analgesic agent; Z88.1 Allergy status to other antibiotic agents; Z88.2 Allergy status to sulfonamides; Z88.8 Allergy status to other drugs, medicaments and biological substances; Z91.018 Allergy to other foods; Z91.048 Other nonmedicinal substance allergy status; Z88.4 Allergy status to anesthetic agent; Z88.5 Allergy status to narcotic agent; Z79.890 Hormone replacement therapy; Z79.01 Long term (current) use of anticoagulants; Z79.899 Other long term (current) drug therapy; Z79.891 Long term (current) use of opiate analgesic; Z79.51 Long term (current) use of inhaled steroids; Z86.711 Personal history of pulmonary embolism; Z87.01 Personal history of pneumonia (recurrent); Z85.820 Personal history of malignant melanoma of skin; Z87.891 Personal history of nicotine dependence; Z87.440 Personal history of urinary (tract) infections; Z86.16 Personal history of COVID-19; Z83.3 Family history of diabetes mellitus; Z82.49 Family history of ischemic heart disease and other diseases of the circulatory system; Z80.1 Family history of malignant neoplasm of trachea, bronchus and lung; Z82.5 Family history of asthma and other chronic lower respiratory diseases
CPT/HCPCS: 36415; 71045; 71046; 72072; 72100; 74018; 76770; 80048; 80053; 80170; 80202; 81001; 82565; 83036; 83605; 83735; 83880; 84145; 84439; 84443; 84484; 85025; 85610; 85730; 86140; 87040; 93005; 94640; 94760; 96365; 96375; 99285

== ENCOUNTER 2021-11-03 07:56 | Inpatient (IN) | payer MEDICARE ==
[2021-11-03] MEDS ORDERED: IPRATROPIUM 0.5 MG/2.5 ML NEBU INHALATION STA (08:16)
[2021-11-03] MEDS ORDERED: ALBUTEROL NEBULIZED 2.5 MG/3 ML INHALATION STA (08:16)
[2021-11-03] MEDS ORDERED: ONDANSETRON 4 MG/2 ML VIAL IVP STA (08:17)
--- NOTE | 2021-11-03 08:47 | ED ---
General Adult HPI - General Chief complaint: Shortness of Breath Stated complaint: MIRTHA Time Seen by Provider: 11/03/21 07:59 Source: patient, EMS, RN notes reviewed, old records reviewed Mode of arrival: EMS Limitations: no limitations - History of Present Illness Initial comments: 81-year-old female presenting for evaluation of dyspnea. Patient was recently discharged from this institution. She states that she is currently wearing 5 L both believe she needs more oxygen. She's had increased cough and dyspnea. She denies central chest pain. Denies fever. She reports bilateral lower extremity edema. She does currently sleep in a recliner. - Related Data Home Medications Medication Instructions Recorded Confirmed Levothyroxine Sodium [Synthroid] 125 mcg PO DAILY@0700 10/18/20 10/25/21 amLODIPine [Norvasc] 10 mg PO DAILY@0700 10/18/20 10/25/21 Sertraline [Zoloft] 50 mg PO HS@1900 06/03/21 10/25/21 cloNIDine HCL [Catapres] 0.3 mg PO BID@0700,19006/03/21 10/25/21 Docusate [Colace] 400 mg PO HS@1900 06/29/21 10/25/21 Mirtazapine [Remeron] 15 mg PO HS@1900 06/29/21 10/25/21 Multivit-Min/Iron/Folic/Lutein 1 tab PO DAILY@0700 07/10/21 10/25/21 [Centrum Silver Women Tablet] Simvastatin 40 mg PO HS@1900 07/10/21 10/25/21 SILVER sulfADIAZINE Cream 1 applic TOPICAL BID@0700,1900 07/27/21 10/25/21 [Silvadene 1% Cream] Acetaminophen [Tylenol] 500 - 1,000 mg PO Q6H PRN 08/26/21 10/25/21 Calcium Carbonate [Tums] 1,000 - 2,000 mg PO DAILY PRN 08/26/21 10/25/21 Carvedilol [Coreg] 25 mg PO BID@0700,1900 08/26/21 10/25/21 Guaifenesin/Dextromethorphan 20 ml PO DIRECTED PRN 08/26/21 10/25/21 [Robitussin Cough-Chest Dm Liq] HYDROcodone/APAP 7.5-325MG [Range 1 tab PO Q6H PRN 08/26/21 10/25/21 7.5-325] Lansoprazole [Prevacid] 30 mg PO DAILY@69908/26/21 10/25/21 Spironolactone 25 mg PO DAILY@0708/26/21 10/25/21 Zolpidem Tartrate [Ambien] 5 mg PO HS PRN 08/26/21 10/25/21 Cholecalciferol [Vitamin D3 (25 25 mcg PO DAILY@69909/25/21 10/25/21 Mcg = 1000 Iu)] Colon Health Probiotic 1 cap PO DAILY@69909/25/21 10/25/21 Ipratropium-Albuterol Nebulize 3 ml INHALATION RT-QID 09/25/21 10/25/21 [Duoneb 0.5 mg-3 mg/3 ml Soln] guaiFENesin [Mucinex] 1,200 mg PO Q12H PRN 09/25/21 10/25/21 Ondansetron Odt [Zofran ODT] 4 mg PO TID@0800,1600,199910/25/21 10/25/21 Previous Rx's Medication Instructions Recorded Budesonide-Formot 160-4.5 Mcg 2 puff INHALATION RT-BID 30 Days 09/27/21 [Symbicort 160-4.5 Mcg Inhaler] #8 gm Apixaban [Eliquis] 2.5 mg PO BID #60 tablet 11/01/21 Furosemide [Lasix] 40 mg PO DAILY tab 11/01/21 INSULIN ASPART (NovoLOG) [NovoLOG 0 unit SQ ACHS ml 11/01/21 (formulary)] Allergies Allergy/AdvReac Type Severity Reaction Status Date / Time onion Allergy Unknown Verified 11/03/21 08:10 adhesive AdvReac SKIN Verified 11/03/21 08:10 REDDENS & BLISTERS- PAPER TAPE OKAY aspirin AdvReac STOMACH Verified 11/03/21 08:10 HERRERA azithromycin [From Zithromax] AdvReac Nausea & Verified 11/03/21 08:10 Vomiting lactose AdvReac Nausea Verified 11/03/21 08:10 meperidine HCl [From Demerol] AdvReac Nausea & Verified 11/03/21 08:10 Vomiting morphine AdvReac Nausea & Verified 11/03/21 08:10 Vomiting Sulfa (Sulfonamide AdvReac Nausea & Verified 11/03/21 08:10 Antibiotics) Vomiting tree and shrub pollen AdvReac Cough Verified 11/03/21 08:10 anesthesia Allergy facial/arms/hands Uncoded 11/03/21 08:10 swelling,skin"turns beet red", nausea DISSOLVING SUTURES AdvReac INFECTION Uncoded 11/03/21 08:10 Review of Systems ROS Statement: Those systems with pertinent positive or pertinent negative responses have been documented in the HPI. ROS Other: All systems not noted in ROS Statement are negative. Past Medical History Past Medical History: Asthma, Cancer, Heart Failure, COPD, GERD/Reflux, Hyperlipidemia, Hypertension, Osteoarthritis (OA), Pneumonia, Pulmonary Embolus (PE), Rheumatoid Arthritis (RA), Sleep Apnea/CPAP/BIPAP, Thyroid Disorder Additional Past Medical History / Comment(s): COPD/asthma, chronic cough, hypothyroidism, history of basal cell carcinoma of the skin resected, history of melanoma of the skin involving the back, resected, history of diverticulosis/diverticulitis, history of fibrocystic disease, obstructive sleep apnea can sleep with the CPAP, varicose veins in lower extremities, hypothyroidism, covid 3-4 weeks ago. History of Any Multi-Drug Resistant Organisms: None Reported Past Surgical History: Bladder Surgery, Bowel Resection, Cholecystectomy, Heart Catheterization, Hernia Repair, Hysterectomy, Joint Replacement, Orthopedic Surgery Additional Past Surgical History / Comment(s): LEFT KNEE REPLACED, PARTIAL THYROIDECTOMY,HIATAL HERNIA REPAIR 07/2013, ABDOMINAL HERNIA REPAIR,MULTIPLE SKIN LESIONS-PT STATED HAS HAS BASAL,SQUAMOUS AND MELANOMA SKIN CA ( NECK,RT UPPER & LOWER THIGH,LT ARM,RT ARM, face, back-melanoma)SKIN GRAFTS TO VINOD.LEGS- LT EAR-LT MIDDLE FINGER,ACHILLES TENDON surgery. RT OVARY 1 TUBE REMOVED, SIGMOID RESECTION D/T BOWEL OBSTRUCTION,RT LITLE FINGER AMP, Past Anesthesia/Blood Transfusion Reactions: Previous Problems w/ Anesthesia, Motion Sickness, Postoperative Nausea & Vomiting (PONV) Additional Past Anesthesia/Blood Transfusion Reaction / Comment(s): STATES "HAS HAD SWELLING TO FACE,HANDS,ARMS AND SKIN TURNS "BEET RED"WITH ANESTHESIA-with IV sedation. states no problems with last surgery at [facility] 01/2017-anesthesia records on chart Past Psychological History: Anxiety Smoking Status: Former smoker Past Alcohol Use History: None Reported Past Drug Use History: None Reported - Past Family History Mother Family Medical History: Diabetes Mellitus Additional Family Medical History / Comment(s): HEART PROBLEMS Sister(s) Family Medical History: Diabetes Mellitus, Myocardial Infarction (ID) Additional Family Medical History / Comment(s): EMPHYSEMA Father Family Medical History: Cancer Additional Family Medical History / Comment(s): LUNG CA. General Exam Limitations: no limitations General appearance: alert, in distress Head exam: Present: atraumatic, normocephalic Eye exam: Present: normal appearance, PERRL Neck exam: Present: normal inspection. Absent: tenderness, meningismus Respiratory exam: Present: respiratory distress, wheezes, accessory muscle use, decreased breath sounds Cardiovascular Exam: Present: regular rate, normal rhythm GI/Abdominal exam: Present: soft. Absent: distended, tenderness, guarding Extremities exam: Present: normal inspection, normal capillary refill Neurological exam: Present: alert, oriented X3, CN II-XII intact. Absent: motor sensory deficit Skin exam: Present: warm, dry, intact Course Vital Signs 11/03/21 11/03/21 11/03/21 08:01 09:23 09:37 Temperature 99.7 F H Pulse Rate 79 72 73 Respiratory 22 Rate Blood Pressure 174/79 O2 Sat by Pulse 97 Oximetry EKG Findings - EKG Comments: EKG Findings:: EKG: Sinus rhythm no ST segment elevation, rate of 74, OR interval 186, QRS duration 98, QTC 405, Medical Decision Making - Medical Decision Making 81-year-old female with oxygen dependent COPD presenting with increased work of breathing, increased cough. She denies fever. She has stable vitals upon arrival but is moderately dyspneic. She had been given albuterol and Atrovent by EMS prior to arrival. She's given additional dosing in the emergency department as well as IV steroids. Patient has chest x-ray which is stable from prior. She has a mild leukocytosis. Normal CMP, negative troponin, negative BNP. Suspect his dyspnea is largely from COPD. She will be admitted for COPD exacerbation with pulmonology on consult. Case discussed with Dr. Rodriguez. - Lab Data Result diagrams: 11/03/21 08:43 11/03/21 08:43 Lab Results 11/03/21 11/03/21 11/03/21 Range/Units 08:43 08:43 08:43 WBC 13.9 H (3.8-10.6) k/uL RBC 4.09 (3.80-5.40) m/uL Hgb 12.1 (11.4-16.0) gm/dL Hct 37.4 (34.0-46.0) % MCV 91.3 (80.0-100.0) fL MCH 29.5 (25.0-35.0) pg MCHC 32.3 (31.0-37.0) g/dL RDW 14.9 (11.5-15.5) % Plt Count 328 (150-450) k/uL MPV 7.9 Neutrophils % 83 % Lymphocytes % 9 % Monocytes % 5 % Eosinophils % 3 % Basophils % 1 % Neutrophils # 11.5 H (1.3-7.7) k/uL Lymphocytes # 1.2 (1.0-4.8) k/uL Monocytes # 0.6 (0-1.0) k/uL Eosinophils # 0.4 (0-0.7) k/uL Basophils # 0.1 (0-0.2) k/uL PT (9.0-12.0) sec INR (<1.2) APTT (22.0-30.0) sec Sodium 135 L (137-145) mmol/L Potassium 4.4 (3.5-5.1) mmol/L Chloride 93 L (98-107) mmol/L Carbon Dioxide 36 H (22-30) mmol/L Anion Gap 6 mmol/L BUN 26 H (7-17) mg/dL Creatinine 1.68 H (0.52-1.04) mg/dL Est GFR (CKD-EPI)AfAm 32 (>60 ml/min/1.73 sqM) Est GFR (CKD-EPI)NonAf 28 (>60 ml/min/1.73 sqM) Glucose 163 H (74-99) mg/dL Plasma Lactic Acid Tyron 1.1 (0.7-2.0) mmol/L Calcium 9.0 (8.4-10.2) mg/dL Magnesium 2.3 (1.6-2.3) mg/dL Total Bilirubin 0.6 (0.2-1.3) mg/dL AST 25 (14-36) U/L ALT 11 (4-34) U/L Alkaline Phosphatase 90 (38-126) U/L Troponin I (0.000-0.034) ng/mL NT-Pro-B Natriuret Pep pg/mL Total Protein 6.4 (6.3-8.2) g/dL Albumin 3.7 (3.5-5.0) g/dL 11/03/21 11/03/21 11/03/21 Range/Units 08:43 08:43 09:23 WBC (3.8-10.6) k/uL RBC (3.80-5.40) m/uL Hgb (11.4-16.0) gm/dL Hct (34.0-46.0) % MCV (80.0-100.0) fL MCH (25.0-35.0) pg MCHC (31.0-37.0) g/dL RDW (11.5-15.5) % Plt Count (150-450) k/uL MPV Neutrophils % % Lymphocytes % % Monocytes % % Eosinophils % % Basophils % % Neutrophils # (1.3-7.7) k/uL Lymphocytes # (1.0-4.8) k/uL Monocytes # (0-1.0) k/uL Eosinophils # (0-0.7) k/uL Basophils # (0-0.2) k/uL PT 10.7 (9.0-12.0) sec INR 1.0 (<1.2) APTT 25.6 (22.0-30.0) sec Sodium (137-145) mmol/L Potassium (3.5-5.1) mmol/L Chloride (98-107) mmol/L Carbon Dioxide (22-30) mmol/L Anion Gap mmol/L BUN (7-17) mg/dL Creatinine (0.52-1.04) mg/dL Est GFR (CKD-EPI)AfAm (>60 ml/min/1.73 sqM) Est GFR (CKD-EPI)NonAf (>60 ml/min/1.73 sqM) Glucose (74-99) mg/dL Plasma Lactic Acid Tyron (0.7-2.0) mmol/L Calcium (8.4-10.2) mg/dL Magnesium (1.6-2.3) mg/dL Total Bilirubin (0.2-1.3) mg/dL AST (14-36) U/L ALT (4-34) U/L Alkaline Phosphatase (38-126) U/L Troponin I <0.012 (0.000-0.034) ng/mL NT-Pro-B Natriuret Pep 767 pg/mL Total Protein (6.3-8.2) g/dL Albumin (3.5-5.0) g/dL Disposition Clinical Impression: Acute exacerbation of chronic obstructive pulmonary disease Disposition: ADMITTED IP TO THIS HOSP Condition: Stable Is patient prescribed a controlled substance at d/c from ED?: No Referrals: Ying Pearson MD [Primary Care Provider] - 1-2 days Decision to Admit Reason: Admit from EC Decision Date: 11/03/21 Decision Time: 10:43
[2021-11-03 08:55] LABS: Basophils # (A) 0.1 k/uL (0-0.2); Basophils % (A) 1 %; Eosinophils # (A) 0.4 k/uL (0-0.7); Eosinophils % (A) 3 %; HCT 37.4 % (34.0-46.0); HGB 12.1 gm/dL (11.4-16.0); Lymphocytes # (A) 1.2 k/uL (1.0-4.8); Lymphocytes % (A) 9 %; MCH 29.5 pg (25.0-35.0); MCHC 32.3 g/dL (31.0-37.0); MCV 91.3 fL (80.0-100.0); Mean Platelet Volume 7.9; Monocytes # (A) 0.6 k/uL (0-1.0); Monocytes % (A) 5 %; Neutrophils # (A) 11.5 k/uL (1.3-7.7); Neutrophils % (A) 83 %; Platelet Count 328 k/uL (150-450); RBC 4.09 m/uL (3.80-5.40); RDW 14.9 % (11.5-15.5); WBC 13.9 k/uL (3.8-10.6)
[2021-11-03 09:21] LABS: Albumin 3.7 g/dL (3.5-5.0); Magnesium 2.3 mg/dL (1.6-2.3); Potassium 4.4 mmol/L (3.5-5.1); Total Bilirubin 0.6 mg/dL (0.2-1.3); Total Protein 6.4 g/dL (6.3-8.2)
[2021-11-03 09:46] LABS: Partial Thromboplastin Time 25.6 sec (22.0-30.0); Prothrombin Time 10.7 sec (9.0-12.0)
--- NOTE | 2021-11-03 09:50 | XR ---
EXAMINATION TYPE: XR chest 1V portable DATE OF EXAM: 11/03/2021 COMPARISON: Chest x-ray 3 days ago. HISTORY: Difficulty in breathing. TECHNIQUE: Single AP portable frontal upright view of the chest is obtained. FINDINGS: There chronic parenchymal changes bilaterally without suspicious new are focal air space o pacity, pleural effusion, or pneumothorax seen. Cardiomegaly is redemonstrated with atherosclerotic t horacic aorta. The osseous structures are intact. IMPRESSION: Chronic changes and cardiomegaly without acute pulmonary process. No significant change from prior.
[2021-11-03] MEDS ORDERED: IPRATROPIUM-ALBUTEROL 3 ML NEB INHALATION PRN (10:40)
[2021-11-03] MEDS ORDERED: ACETAMINOPHEN TAB 500 MG TAB PO PRN (11:21)
[2021-11-03] MEDS: IPRATROPIUM-ALBUTEROL 3 ML NEB INHALATION SCH ×3 (11:52→20:59)
[2021-11-03] MEDS: FUROSEMIDE 40 MG TAB PO SCH (12:21)
[2021-11-03] MEDS: APIXABAN 2.5 MG TABLET PO SCH ×2 (12:21→20:52)
[2021-11-03] MEDS: methylPREDNISolone SOD SUCCI 125 MG/2 ML VIAL IV SCH ×2 (12:21→20:51)
[2021-11-03 13:37] LABS: Appearance,Urine Clear (Clear); Bacteria,Urine Rare /hpf; Bilirubin,Urine Negative (Negative); Blood,Urine Negative (Negative); Color,Urine Yellow; Glucose,Urine (UA) Negative (Negative); Hyaline Casts,Urine 7 /lpf (0-2); Ketones,Urine Negative (Negative); Leukocyte Esterase,Urine Moderate (Negative); Mucus,Urine Rare /hpf; Nitrite,Urine Negative (Negative); Protein,Urine Trace (Negative); RBC,Urine 4 /hpf (0-5); Specific Gravity,Urine 1.015 (1.001-1.035); Squamous Epithelial Cell,Urine 7 /hpf (0-4); Urobilinogen,Urine <2.0 mg/dL (<2.0); WBC,Urine 9 /hpf (0-5)
--- NOTE | 2021-11-03 14:24 | P.CNPUL ---
History of Present Illness Consult date: 11/03/21 Reason for consult: dyspnea, COPD History of present illness: This is a 81-year-old female patient was readmitted after 48 hours of being discharged from the hospital. The patient was in the hospital for a enterococcal confusion UTI and acute kidney injury for which she was treated with antibiotics initially with vancomycin and later on with daptomycin, the patient's condition was stabilized. The patient was treated also for an acute kidney injury, she was having some nausea and emesis that recovered, she was discharged home. She came in yesterday to the burst department because of worsening shortness of breath. Apparently she was unable to breathe and she was not responding to bronchodilators. She also reported some increased lower extremity edema. She called EMS and the patient was brought in to the hospital. Showing a temperature of 99.7 at time of admission. Blood pressure was slightly elevated at 174/79. The at the was at 13.9, BUN was 26 with a creatinine of 1.68, LFTs were normal, coagulation profile was normal, troponin was negative and the proBNP level was 767 and the chest x-ray showed chronic changes with cardiomegaly without any acute cardio pulmonary process. Review of Systems CONSTITUTIONAL: Denies any recent significant weight loss or weight gain. EYES: Denies change in vision. EARS, NOSE, MOUTH, THROAT: Denies headaches, denies sore throat. CARDIOVASCULAR: Positive for chest pain, no palpitations or syncopal episodes. RESPIRATORY: Positive for shortness of breath, cough, congestion no hemoptysis. GASTROINTESTINAL: Denies change in appetite, denies abdominal pain GENITOURINARY: Denies hematuria, denies infections. MUSKULOSKELETAL: Denies pain, denies swelling. INTEGUMENTARY: Denies rash, denies eczema. NEUROLOGICAL: Denies recent memory loss, no recent seizure activity. PSYCHIATRIC: Denies anxiety, denies depression. HEMATOLOGIC/LYMPHATIC: Denies anemia, denies enlarged lymph nodes. Past Medical History Past Medical History: Asthma, Cancer, Heart Failure, COPD, GERD/Reflux, Hyperlipidemia, Hypertension, Osteoarthritis (OA), Pneumonia, Pulmonary Embolus (PE), Rheumatoid Arthritis (RA), Sleep Apnea/CPAP/BIPAP, Thyroid Disorder Additional Past Medical History / Comment(s): COPD/asthma, chronic cough, hypothyroidism, history of basal cell carcinoma of the skin resected, history of melanoma of the skin involving the back, resected, history of diverticulosis/diverticulitis, history of fibrocystic disease, obstructive sleep apnea can sleep with the CPAP, varicose veins in lower extremities, hypothyroidism, covid 3-4 weeks ago. History of Any Multi-Drug Resistant Organisms: None Reported Past Surgical History: Bladder Surgery, Bowel Resection, Cholecystectomy, Heart Catheterization, Hernia Repair, Hysterectomy, Joint Replacement, Orthopedic Surgery Additional Past Surgical History / Comment(s): LEFT KNEE REPLACED, PARTIAL THYROIDECTOMY,HIATAL HERNIA REPAIR 07/2013, ABDOMINAL HERNIA REPAIR,MULTIPLE SKIN LESIONS-PT STATED HAS HAS BASAL,SQUAMOUS AND MELANOMA SKIN CA ( NECK,RT UPPER & LOWER THIGH,LT ARM,RT ARM, face, back-melanoma)SKIN GRAFTS TO VINOD.LEGS- LT EAR-LT MIDDLE FINGER,ACHILLES TENDON surgery. RT OVARY 1 TUBE REMOVED, SIGMOID RESECTION D/T BOWEL OBSTRUCTION,RT LITLE FINGER AMP, Past Anesthesia/Blood Transfusion Reactions: Previous Problems w/ Anesthesia, Motion Sickness, Postoperative Nausea & Vomiting (PONV) Additional Past Anesthesia/Blood Transfusion Reaction / Comment(s): STATES "HAS HAD SWELLING TO FACE,HANDS,ARMS AND SKIN TURNS "BEET RED"WITH ANESTHESIA-with IV sedation. states no problems with last surgery at [facility] 01/2017-anesthesia records on chart Past Psychological History: Anxiety Smoking Status: Former smoker Past Alcohol Use History: None Reported Past Drug Use History: None Reported - Past Family History Mother Family Medical History: Diabetes Mellitus Additional Family Medical History / Comment(s): HEART PROBLEMS Sister(s) Family Medical History: Diabetes Mellitus, Myocardial Infarction (PR) Additional Family Medical History / Comment(s): EMPHYSEMA Father Family Medical History: Cancer Additional Family Medical History / Comment(s): LUNG CA. Medications and Allergies Home Medications Medication Instructions Recorded Confirmed Type Levothyroxine Sodium [Synthroid] 125 mcg PO DAILY@0700 10/18/20 11/03/21 History amLODIPine [Norvasc] 10 mg PO DAILY@0700 10/18/20 11/03/21 History Sertraline [Zoloft] 50 mg PO HS@1900 06/03/21 11/03/21 History cloNIDine HCL [Catapres] 0.3 mg PO BID@0700,1900 06/03/21 11/03/21 History Docusate [Colace] 400 mg PO HS@1900 06/29/21 11/03/21 History Mirtazapine [Remeron] 15 mg PO HS@189906/29/21 11/03/21 History Multivit-Min/Iron/Folic/Lutein 1 tab PO DAILY@0700 07/10/21 11/03/21 History [Centrum Silver Women Tablet] Simvastatin 40 mg PO HS@189907/10/21 11/03/21 History SILVER sulfADIAZINE Cream 1 applic TOPICAL BID@0700,189907/27/21 11/03/21 History [Silvadene 1% Cream] Acetaminophen [Tylenol] 500 - 1,000 mg PO Q6H PRN 08/26/21 11/03/21 History Calcium Carbonate [Tums] 1,000 - 2,000 mg PO DAILY PRN 08/26/21 11/03/21 History Carvedilol [Coreg] 25 mg PO BID@0700,19008/26/21 11/03/21 History Guaifenesin/Dextromethorphan 20 ml PO DIRECTED PRN 08/26/21 11/03/21 History [Robitussin Cough-Chest Dm Liq] HYDROcodone/APAP 7.5-325MG [[place] 1 tab PO Q6H PRN 08/26/21 11/03/21 History 7.5-325] Lansoprazole [Prevacid] 30 mg PO DAILY@0700 08/26/21 11/03/21 History Spironolactone 25 mg PO DAILY@0700 08/26/21 11/03/21 History Zolpidem Tartrate [Ambien] 5 mg PO HS PRN 08/26/21 11/03/21 History Colon Health Probiotic 1 cap PO DAILY@0700 09/25/21 11/03/21 History Ipratropium-Albuterol Nebulize 3 ml INHALATION RT-QID 09/25/21 11/03/21 History [Duoneb 0.5 mg-3 mg/3 ml Soln] guaiFENesin [Mucinex] 1,200 mg PO Q12H PRN 09/25/21 11/03/21 History Budesonide-Formot 160-4.5 Mcg 2 puff INHALATION RT-BID 30 Days 09/27/21 11/03/21 Rx [Symbicort 160-4.5 Mcg Inhaler] #8 gm Ondansetron Odt [Zofran ODT] 4 mg PO Q8H PRN 10/25/21 11/03/21 History Apixaban [Eliquis] 5 mg PO BID@0700,1900 11/03/21 11/03/21 History Black Elderberry 2,000 mg PO BID@0700,1900 11/03/21 11/03/21 History Furosemide [Lasix] 40 mg PO BID@0700,1900 11/03/21 11/03/21 History Allergies Allergy/AdvReac Type Severity Reaction Status Date / Time onion Allergy Unknown Verified 11/03/21 12:41 adhesive AdvReac SKIN Verified 11/03/21 12:41 REDDENS & BLISTERS- PAPER TAPE OKAY aspirin AdvReac STOMACH Verified 11/03/21 12:41 HERRERA azithromycin [From Zithromax] AdvReac Nausea & Verified 11/03/21 12:41 Vomiting lactose AdvReac Nausea Verified 11/03/21 12:41 meperidine HCl [From Demerol] AdvReac Nausea & Verified 11/03/21 12:41 Vomiting morphine AdvReac Nausea & Verified 11/03/21 12:41 Vomiting Sulfa (Sulfonamide AdvReac Nausea & Verified 11/03/21 12:41 Antibiotics) Vomiting tree and shrub pollen AdvReac Cough Verified 11/03/21 12:41 anesthesia Allergy facial/arms/hands Uncoded 11/03/21 08:10 swelling,skin"turns beet red", nausea DISSOLVING SUTURES AdvReac INFECTION Uncoded 11/03/21 08:10 Physical Exam Vitals: Vital Signs Temp Pulse Resp BP Pulse Ox 11/03/21 12:02 71 11/03/21 12:00 71 29 H 184/77 95 11/03/21 11:52 77 11/03/21 11:00 69 21 174/79 98 11/03/21 10:00 70 20 174/79 11/03/21 09:37 73 11/03/21 09:23 72 11/03/21 09:00 174/79 96 11/03/21 08:01 99.7 F H 79 22 174/79 97 Intake and Output 11/02/21 11/03/21 11/03/21 22:59 06:59 14:59 Other: Weight 99.79 kg GENERAL EXAM: Alert, very pleasant 81-year-old female patient, on 5 L nasal cannula, up in a chair at the bedside, comfortable in no apparent distress. HEAD: Normocephalic. EYES: Normal reaction of pupils, equal size. NOSE: Clear with pink turbinates. THROAT: No erythema or exudates. NECK: No masses, no JVD. CHEST: No chest wall deformity. LUNGS: Equal air entry with mild end expiratory wheeze, diminished. CVS: S1 and S2 normal with no audible murmur, regular rhythm. ABDOMEN: No hepatosplenomegaly, normal bowel sounds, no guarding or rigidity. SPINE: No scoliosis or deformity SKIN: No rashes CENTRAL NERVOUS SYSTEM: No focal deficits, tone is normal in all 4 extremities. EXTREMITIES: There is no peripheral edema. No clubbing, no cyanosis. Peripheral pulses are intact. Results - Laboratory Findings CBC and BMP: 11/03/21 08:43 11/03/21 08:43 PT/INR, D-dimer PT 10.7 sec (9.0-12.0) 11/03/21 09:23 INR 1.0 (<1.2) 11/03/21 09:23 Abnormal lab findings: Abnormal Labs 11/03/21 11/03/21 11/03/21 08:43 08:43 13:00 WBC 13.9 H Neutrophils # 11.5 H Sodium 135 L Chloride 93 L Carbon Dioxide 36 H BUN 26 H Creatinine 1.68 H Glucose 163 H Urine Protein Trace H Ur Leukocyte Esterase Moderate H Urine WBC 9 H Ur Squamous Epith Cells 7 H Urine Bacteria Rare H Hyaline Casts 7 H Urine Mucus Rare H - Diagnostic Findings Chest x-ray: image reviewed Assessment and Plan Plan: 1 acute COPD exacerbation with secondary shortness of breath. Chest x-ray is not showing any acute abnormalities. 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 with Eliquis, the patient is known to have previous history of pulmonary embolism, nontolerant to warfarin 4 Rheumatoid arthritis 5 Obstructive sleep apnea nontolerant to CPAP therapy 6 History of skin cancer in the form of squamous cell carcinoma and basal cell carcinoma and melanoma, all resected 7 History of diverticular disease 8 Gastroesophageal reflux disease 9 Remote history of pulmonary embolism, in a postoperative setting 10 Hypertension 11 Hypothyroidism 12 Chronic back pain has been on [place] 7.5 and she'll be given 1 tablet every 24 hours on an as-needed basis for ongoing pain. 13 Coronary artery disease with nonocclusive disease based on a cardiac catheterization from 2018 with mild disease involving the LAD, preserved LV function 14 chronic kidney disease, stage III, creatinine stable at 1.6 15 osteoporosis with multiple compression fracture deformity of the thoracic spine and history of chronic back pain secondary to previous falls 16 compression fracture of L2 spine 17 UTI secondary to enterococcus fecium , treated Plan: Cover the patient with bronchodilators steroids Recheck UA and cultures Resume all medications Resume and examination with Eliquis 2.5 mg twice a day We'll follow. Long-term prognosis poor baseline above-mentioned comorbidities. Titrate FiO2 to maintain saturation above 90%
[2021-11-03] MEDS ORDERED: ONDANSETRON ODT 4 MG TAB PO SCH (16:00)
[2021-11-03] MEDS ORDERED: ONDANSETRON 4 MG/2 ML VIAL IVP PRN (19:51)
[2021-11-03 20:44] LABS: Glucose,Whole Blood 265 mg/dL (75-99)
[2021-11-03] MEDS: MIRTAZAPINE 15 MG TAB PO SCH (20:51)
[2021-11-03] MEDS: cloNIDine HCL 0.1 MG TAB PO SCH (20:51)
[2021-11-03] MEDS: carvediloL 12.5 MG TAB PO SCH (20:52)
[2021-11-03] MEDS: SERTRALINE 50 MG TAB PO SCH (20:52)
[2021-11-03] MEDS: ATORVASTATIN 20 MG TAB PO SCH (20:52)
[2021-11-03] MEDS: INSULIN ASPART (NovoLOG) 100 UNIT/ML VIAL SQ SCH (20:52)
[2021-11-03] MEDS: HYDROcodone/APAP 7.5-325MG 1 EACH TAB PO PRN (20:59)
--- NOTE | 2021-11-03 21:38 | P.HPIM ---
History of Present Illness H&P Date: 11/03/21 Chief Complaint: MIRTHA 81-year-old female with long history of COPD, chronic hypoxic respiratory failure on oxygen at 4 to 5 L at home, recent history of PE on anticoagulation with Eliquis, hypertension, hypothyroidism, obstructive sleep apnea on CPAP, history of basal cell carcinoma of the skin resected, chronic bilateral lower extremity edema, anxiety and previous history of smoking and other multiple medical problems presents to ER with complaints of worsening cough and shortness of breath. Patient does have cough with whitish sputum production. Denies any chest pain. Patient was discharged from the hospital on 11/01/2021 and was treated for acute kidney injury and also Enterococcus urinary tract infection. Patient also had fall couple weeks ago with the L2 compression fracture and was seen by orthopedic surgery recommended conservative management at this time. Patient was also diagnosed with new onset diabetes type 2 with A1c level 8.4 Chest x-ray showed chronic changes and cardiomegaly without acute pulmonary process. No significant change from prior. EKG showed sinus rhythm possible anterior myocardial infarction. Probably old. Laboratory data showed WBC 13.9 hemoglobin 12.1 and platelets 328 Sodium 135 potassium 4.4 chloride 93 bicarb is 36 BUN 26 and creatinine 1.68 troponin x1 - and proBNP 767 Urinalysis showed moderate leukocyte esterase RBCs 9 and WBC 7 and nitrate negative. Review of Systems Constitutional: Patient denies any fever or chills . No generalized weakness or weight loss. Leg swelling. Abdomen: Patient denied nausea vomiting and diarrhea and abdominal pain. Cardiovascular: Patient denies any chest pain or short of breath no palpitations. Respiratory: Patient does have cough with whitish sputum production and shortness of breath Neurologic: Patient denied any numbness or tingling headache. Musculoskeletal: Patient denies any complaints of joint swelling or deformity. Skin: Negative Psychiatric: Negative Endocrine: No heat or cold intolerance. No recent weight gain. Genitourinary: No dysuria or hematuria. All other 14 point ROS negative except the above Past Medical History Past Medical History: Asthma, Cancer, Heart Failure, COPD, GERD/Reflux, Hyperlipidemia, Hypertension, Osteoarthritis (OA), Pneumonia, Pulmonary Embolus (PE), Rheumatoid Arthritis (RA), Sleep Apnea/CPAP/BIPAP, Thyroid Disorder Additional Past Medical History / Comment(s): COPD/asthma, chronic cough, hypothyroidism, history of basal cell carcinoma of the skin resected, history of melanoma of the skin involving the back, resected, history of diverticulosis/diverticulitis, history of fibrocystic disease, obstructive sleep apnea can sleep with the CPAP, varicose veins in lower extremities, hypothyroidism, covid 3-4 weeks ago. History of Any Multi-Drug Resistant Organisms: None Reported Past Surgical History: Bladder Surgery, Bowel Resection, Cholecystectomy, Heart Catheterization, Hernia Repair, Hysterectomy, Joint Replacement, Orthopedic Surgery Additional Past Surgical History / Comment(s): LEFT KNEE REPLACED, PARTIAL THYROIDECTOMY,HIATAL HERNIA REPAIR 07/2013, ABDOMINAL HERNIA REPAIR,MULTIPLE SKIN LESIONS-PT STATED HAS HAS BASAL,SQUAMOUS AND MELANOMA SKIN CA ( NECK,RT UPPER & LOWER THIGH,LT ARM,RT ARM, face, back-melanoma)SKIN GRAFTS TO VINOD.LEGS- LT EAR-LT MIDDLE FINGER,ACHILLES TENDON surgery. RT OVARY 1 TUBE REMOVED, SIGMOID RESECTION D/T BOWEL OBSTRUCTION,RT LITLE FINGER AMP, Past Anesthesia/Blood Transfusion Reactions: Previous Problems w/ Anesthesia, Motion Sickness, Postoperative Nausea & Vomiting (PONV) Additional Past Anesthesia/Blood Transfusion Reaction / Comment(s): STATES "HAS HAD SWELLING TO FACE,HANDS,ARMS AND SKIN TURNS "BEET RED"WITH ANESTHESIA-with IV sedation. states no problems with last surgery at [facility] 01/2017-anesthesia records on chart Past Psychological History: Anxiety Smoking Status: Former smoker Past Alcohol Use History: None Reported Past Drug Use History: None Reported - Past Family History Mother Family Medical History: Diabetes Mellitus Additional Family Medical History / Comment(s): HEART PROBLEMS Sister(s) Family Medical History: Diabetes Mellitus, Myocardial Infarction ([place]) Additional Family Medical History / Comment(s): EMPHYSEMA Father Family Medical History: Cancer Additional Family Medical History / Comment(s): LUNG CA. Medications and Allergies Home Medications Medication Instructions Recorded Confirmed Type Levothyroxine Sodium [Synthroid] 125 mcg PO DAILY@0700 10/18/20 11/03/21 History amLODIPine [Norvasc] 10 mg PO DAILY@0700 10/18/20 11/03/21 History Sertraline [Zoloft] 50 mg PO HS@1900 06/03/21 11/03/21 History cloNIDine HCL [Catapres] 0.3 mg PO BID@0700,1900 06/03/21 11/03/21 History Docusate [Colace] 400 mg PO HS@1900 06/29/21 03/19/22 History Mirtazapine [Remeron] 15 mg PO HS@189906/29/21 11/03/21 History Multivit-Min/Iron/Folic/Lutein 1 tab PO DAILY@0707/10/21 11/03/21 History [Centrum Silver Women Tablet] Simvastatin 40 mg PO HS@189907/10/21 11/03/21 History SILVER sulfADIAZINE Cream 1 applic TOPICAL BID@699,189907/27/21 11/03/21 History [Silvadene 1% Cream] Acetaminophen [Tylenol] 500 - 1,000 mg PO Q6H PRN 08/26/21 11/03/21 History Calcium Carbonate [Tums] 1,000 - 2,000 mg PO DAILY PRN 08/26/21 11/03/21 History Carvedilol [Coreg] 25 mg PO BID@0700,189908/26/21 11/03/21 History Guaifenesin/Dextromethorphan 20 ml PO DIRECTED PRN 08/26/21 11/03/21 History [Robitussin Cough-Chest Dm Liq] HYDROcodone/APAP 7.5-325MG [Nakina 1 tab PO Q6H PRN 08/26/21 11/03/21 History 7.5-325] Lansoprazole [Prevacid] 30 mg PO DAILY@0708/26/21 11/03/21 History Spironolactone 25 mg PO DAILY@0708/26/21 11/03/21 History Zolpidem Tartrate [Ambien] 5 mg PO HS PRN 08/26/21 11/03/21 History Colon Health Probiotic 1 cap PO DAILY@0700 09/25/21 11/03/21 History Ipratropium-Albuterol Nebulize 3 ml INHALATION RT-QID 09/25/21 11/03/21 History [Duoneb 0.5 mg-3 mg/3 ml Soln] guaiFENesin [Mucinex] 1,200 mg PO Q12H PRN 09/25/21 11/03/21 History Budesonide-Formot 160-4.5 Mcg 2 puff INHALATION RT-BID 30 Days 09/27/21 11/03/21 Rx [Symbicort 160-4.5 Mcg Inhaler] #8 gm Ondansetron Odt [Zofran ODT] 4 mg PO Q8H PRN 10/25/21 11/03/21 History Apixaban [Eliquis] 5 mg PO BID@0700,1900 11/03/21 11/03/21 History Black Elderberry 2,000 mg PO BID@0700,1900 11/03/21 11/03/21 History Furosemide [Lasix] 40 mg PO BID@0700,1900 11/03/21 11/03/21 History Allergies Allergy/AdvReac Type Severity Reaction Status Date / Time onion Allergy Unknown Verified 11/03/21 12:41 adhesive AdvReac SKIN Verified 11/03/21 12:41 REDDENS & BLISTERS- PAPER TAPE OKAY aspirin AdvReac STOMACH Verified 11/03/21 12:41 HERRERA azithromycin [From Zithromax] AdvReac Nausea & Verified 11/03/21 12:41 Vomiting lactose AdvReac Nausea Verified 11/03/21 12:41 meperidine HCl [From Demerol] AdvReac Nausea & Verified 11/03/21 12:41 Vomiting morphine AdvReac Nausea & Verified 11/03/21 12:41 Vomiting Sulfa (Sulfonamide AdvReac Nausea & Verified 11/03/21 12:41 Antibiotics) Vomiting tree and shrub pollen AdvReac Cough Verified 11/03/21 12:41 anesthesia Allergy facial/arms/hands Uncoded 11/03/21 08:10 swelling,skin"turns beet red", nausea DISSOLVING SUTURES AdvReac INFECTION Uncoded 11/03/21 08:10 Physical Exam Vitals: Vital Signs Temp Pulse Resp BP Pulse Ox 11/03/21 12:02 71 11/03/21 12:00 71 29 H 184/77 95 11/03/21 11:52 77 11/03/21 11:00 69 21 174/79 98 11/03/21 10:00 70 20 174/79 11/03/21 09:37 73 11/03/21 09:23 72 11/03/21 09:00 174/79 96 11/03/21 08:01 99.7 F H 79 22 174/79 97 Intake and Output 11/02/21 11/03/21 11/03/21 22:59 06:59 14:59 Other: Weight 99.79 kg PHYSICAL EXAMINATION: Patient is lying in the bed comfortably, mild acute distress, awake alert and oriented.. HEENT: Normocephalic. Neck is supple. Pupils reactive. Nostrils clear. Oral cavity is moist. Neck reveals no JVD, carotid bruits, or thyromegaly. CHEST EXAMINATION: Trachea is central. Symmetrical expansion. Bilateral diminished air entry and scattered rhonchi and wheezing. Nonlabored breathing.. CARDIAC: Normal S1, S2 with no gallops. No murmurs ABDOMEN: Soft. Bowel sounds normal. No organomegaly. No abdominal bruits. Extremities: Bilateral 2+ pedal edema. No clubbing or cyanosis Neurologically awake, alert, oriented x3 with well-coordinated movements. No focal deficits noted Skin: No rash or skin lesions. Psychiatric: Cooperative. Nonsuicidal Musculoskeletal: No joint swelling or deformity. Normal range of motion. Results CBC & Chem 7: 11/03/21 08:43 11/03/21 08:43 Labs: Abnormal Lab Results - Last 24 Hours (Table) 11/03/21 11/03/21 11/03/21 Range/Units 08:43 08:43 13:00 WBC 13.9 H (3.8-10.6) k/uL Neutrophils # 11.5 H (1.3-7.7) k/uL Sodium 135 L (137-145) mmol/L Chloride 93 L (98-107) mmol/L Carbon Dioxide 36 H (22-30) mmol/L BUN 26 H (7-17) mg/dL Creatinine 1.68 H (0.52-1.04) mg/dL Glucose 163 H (74-99) mg/dL Urine Protein Trace H (Negative) Ur Leukocyte Esterase Moderate H (Negative) Urine WBC 9 H (0-5) /hpf Ur Squamous Epith Cells 7 H (0-4) /hpf Urine Bacteria Rare H (None) /hpf Hyaline Casts 7 H (0-2) /lpf Urine Mucus Rare H (None) /hpf Thrombosis Risk Factor Assmnt - DVT/VTE Prophylaxis DVT/VTE Prophylaxis: Pharmacologic Prophylaxis ordered Assessment and Plan Assessment: Worsening shortness of breath secondary to acute COPD exacerbation with possible tracheobronchitis Chronic hypoxic respiratory failure on oxygen 5 L via nasal cannula at home Patient history of PE on anticoagulation with Eliquis Obstructive sleep apnea on CPAP at home Recent history of Enterococcus urinary tract infection treated with daptomycin. Chronic kidney disease stage III with baseline creatinine around 1.6. Creatinine at admission is 1.68 Hypothyroidism Hypertension Nonocclusive coronary artery disease GERD Rheumatoid arthritis Compression fracture of L2 vertebrae. Conservative management per orthopedic surgery Previous history of fall Obesity with BMI 34.5 Osteoporosis with multiple compression fracture deformity of the thoracic spine vertebrae, with back pain secondary to fall 2 weeks prior to admission Chronic back pain on Nakina 7.5 Diabetes type 2 recent onset with A1c 8.4 DVT prophylaxis patient is on full anticoagulation Plan: Patient will be current on oxygen supplementation currently at 6 L via nasal cannula. Continue with duo nebs and Solu-Medrol 60 mg every 6 hourly and antibiotics of cough Levaquin. Continue with insulin sliding scale and follow blood sugars closely. Continue with home medications including Eliquis for anticoagulation due to history of PE and blood pressure medications. Follow-up renal function. Pulmonary is on board. Prognosis is guarded with multiple medical problems and comorbid conditions. Time with Patient: Greater than 30
[2021-11-03] MEDS: INSULIN DETEMIR (LEVEMIR) 100 UNIT/ML SYR SQ SCH (22:42)
[2021-11-03] MEDS: guaiFENesin-DM 100-10MG/5ML 10 ML CUP PO PRN (23:21)
[2021-11-04] MEDS: methylPREDNISolone SOD SUCCI 125 MG/2 ML VIAL IV SCH ×5 (01:06→23:39)
[2021-11-04 07:07] LABS: Glucose,Whole Blood 261 mg/dL (75-99)
[2021-11-04] MEDS: APIXABAN 2.5 MG TABLET PO SCH ×2 (07:30→20:29)
[2021-11-04] MEDS: INSULIN ASPART (NovoLOG) 100 UNIT/ML VIAL SQ SCH ×4 (07:30→21:05)
[2021-11-04] MEDS: LEVOTHYROXINE 125 MCG TAB PO SCH (07:30)
[2021-11-04] MEDS: carvediloL 12.5 MG TAB PO SCH ×2 (07:30→21:06)
[2021-11-04] MEDS: cloNIDine HCL 0.1 MG TAB PO SCH ×2 (07:30→20:29)
[2021-11-04] MEDS: PANTOPRAZOLE 40 MG TABLET PO SCH (07:30)
[2021-11-04] MEDS: FUROSEMIDE 40 MG TAB PO SCH (07:31)
[2021-11-04] MEDS: amLODIPine 10 MG TAB PO SCH (07:31)
[2021-11-04] MEDS: MULTIVITAMINS, THERA 1 EACH TAB PO SCH (07:31)
[2021-11-04] MEDS: IPRATROPIUM-ALBUTEROL 3 ML NEB INHALATION SCH ×4 (07:31→21:16)
[2021-11-04] MEDS ORDERED: LEVOFLOXACIN 500 MG TAB PO SCH (09:00)
[2021-11-04] MEDS: DOCUSATE 100 MG CAP PO SCH (09:03)
[2021-11-04 11:51] LABS: Glucose,Whole Blood 224 mg/dL (75-99)
[2021-11-04 12:42] LABS: Basophils # (A) 0.03 X 10*3/uL (0.00-0.10); Basophils % (A) 0.2 %; Eosinophils # (A) 0 X 10*3/uL (0.04-0.35); Eosinophils % (A) 0 %; HCT 37.5 % (37.2-46.3); HGB 11.4 g/dL (12.0-15.0); Immature Grans, Automated 1.4 %; Lymphocytes # (A) 1.41 X 10*3/uL (0.90-5.00); MCH 28.8 pg (27.0-32.0); MCHC 30.4 g/dL (32.0-37.0); MCV 94.7 fL (80.0-97.0); Mean Platelet Volume 10.7 fL (9.5-12.2); Monocytes # (A) 0.21 X 10*3/uL (0.20-1.00); Monocytes % (A) 1.3 %; NRBC Per 100 WBC 0 /100 WBCS (0.0-0.0); Neutrophils # (A) 13.81 X 10*3/uL (1.80-7.70); Neutrophils % (A) 88.1 %; Platelet Count 319 X 10*3/uL (140-440); RBC 3.96 X 10*6/uL (4.10-5.20); RDW 14.9 % (11.5-14.5); WBC 15.68 X 10*3/uL (4.50-10.00)
[2021-11-04 12:50] LABS: African American GFR (CKD) 27.4 (60.0-200.0); Anion Gap 14.4 mmol/L (10.00-18.00); BUN/Creat Ratio 14.3 Ratio (12.00-20.00); Blood Urea Nitrogen 27.6 mg/dL (9.0-27.0); Carbon Dioxide 31.6 mmol/L (20.0-27.5); Non-African American GFR(CKD) 23.7 (60.0-200.0); Potassium 4.6 mmol/L (3.5-5.5)
[2021-11-04] MEDS ORDERED: FUROSEMIDE 10 MG/ML 2 ML VIAL IV STA (13:47)
[2021-11-04] MEDS: guaiFENesin-DM 100-10MG/5ML 10 ML CUP PO PRN (14:23)
--- NOTE | 2021-11-04 16:12 | P.PN ---
Subjective Progress Note Date: 11/04/21 This is a 81-year-old female patient was readmitted after 48 hours of being discharged from the hospital. The patient was in the hospital for a enterococcal confusion UTI and acute kidney injury for which she was treated with antibiotics initially with vancomycin and later on with daptomycin, the patient's condition was stabilized. The patient was treated also for an acute kidney injury, she was having some nausea and emesis that recovered, she was discharged home. She came in yesterday to the burst department because of worsening shortness of breath. Apparently she was unable to breathe and she was not responding to bronchodilators. She also reported some increased lower extremity edema. She called EMS and the patient was brought in to the hospital. Showing a temperature of 99.7 at time of admission. Blood pressure was slightly elevated at 174/79. The at the was at 13.9, BUN was 26 with a creatinine of 1.68, LFTs were normal, coagulation profile was normal, troponin was negative and the proBNP level was 767 and the chest x-ray showed chronic changes with cardiomegaly without any acute cardio pulmonary process. 11/04/2021, the patient is feeling better. Less rhonchus breath and wheezing compared to yesterday. She does have some tremors. Minimal copy no significant sputum production. He remains on bronchodilators and steroids. He remains on long-term and to coagulation with Eliquis 2.5 mg by mouth twice a day. White cell count of 15.6 with a hemoglobin of 11.4 and the patient is a creatinine of 1.9, which is slightly higher compared to yesterday. Sodium is at 137. Objective - Vital Signs Vital signs: Vital Signs Temp 97.9 F 11/04/21 07:32 Pulse 72 11/04/21 11:26 Resp 28 H 11/04/21 07:32 BP 181/76 11/04/21 07:32 Pulse Ox 98 11/04/21 01:28 Intake & Output 11/03/21 11/04/21 11/04/21 18:59 06:59 18:59 Intake Total 100 100 Balance 100 100 Weight 99.79 kg 99.79 kg Intake: Oral 100 100 Other: # Voids 2 - Exam GENERAL EXAM: Alert, very pleasant 81-year-old female patient, on 5 L nasal cannula, up in a chair at the bedside, comfortable in no apparent distress. HEAD: Normocephalic. EYES: Normal reaction of pupils, equal size. NOSE: Clear with pink turbinates. THROAT: No erythema or exudates. NECK: No masses, no JVD. CHEST: No chest wall deformity. LUNGS: Equal air entry with mild end expiratory wheeze, diminished. CVS: S1 and S2 normal with no audible murmur, regular rhythm. ABDOMEN: No hepatosplenomegaly, normal bowel sounds, no guarding or rigidity. SPINE: No scoliosis or deformity SKIN: No rashes CENTRAL NERVOUS SYSTEM: No focal deficits, tone is normal in all 4 extremities. EXTREMITIES: There is no peripheral edema. No clubbing, no cyanosis. Peripheral pulses are intact. - Labs CBC & Chem 7: 11/04/21 07:36 11/04/21 07:36 Labs: Abnormal Lab Results - Last 24 Hours (Table) 11/03/21 11/03/21 11/04/21 Range/Units 08:43 20:32 07:05 WBC (4.50-10.00) X 10*3/uL RBC (4.10-5.20) X 10*6/uL Hgb (12.0-15.0) g/dL MCHC (32.0-37.0) g/dL RDW (11.5-14.5) % Immature Gran # (0.00-0.04) X 10*3/uL Neutrophils # (1.80-7.70) X 10*3/uL Eosinophils # (0.04-0.35) X 10*3/uL Chloride (96-109) mmol/L Carbon Dioxide (20.0-27.5) mmol/L BUN (9.0-27.0) mg/dL Creatinine (0.6-1.5) mg/dL Est GFR (CKD-EPI)AfAm (60.0-200.0) Est GFR (CKD-EPI)NonAf (60.0-200.0) Glucose (70-110) mg/dL POC Glucose (mg/dL) 265 H 261 H (75-99) mg/dL Hemoglobin A1c (0.0-6.0) % Procalcitonin 0.22 H (0.02-0.09) ng/mL 11/04/21 11/04/21 11/04/21 Range/Units 07:36 07:36 07:36 WBC 15.68 H (4.50-10.00) X 10*3/uL RBC 3.96 L (4.10-5.20) X 10*6/uL Hgb 11.4 L (12.0-15.0) g/dL MCHC 30.4 L (32.0-37.0) g/dL RDW 14.9 H (11.5-14.5) % Immature Gran # 0.22 H (0.00-0.04) X 10*3/uL Neutrophils # 13.81 H (1.80-7.70) X 10*3/uL Eosinophils # 0 L (0.04-0.35) X 10*3/uL Chloride 91 L (96-109) mmol/L Carbon Dioxide 31.6 H (20.0-27.5) mmol/L BUN 27.6 H (9.0-27.0) mg/dL Creatinine 1.9 H (0.6-1.5) mg/dL Est GFR (CKD-EPI)AfAm 27.4 L (60.0-200.0) Est GFR (CKD-EPI)NonAf 23.7 L (60.0-200.0) Glucose 279 H (70-110) mg/dL POC Glucose (mg/dL) (75-99) mg/dL Hemoglobin A1c 8.5 H (0.0-6.0) % Procalcitonin (0.02-0.09) ng/mL 11/04/21 Range/Units 11:49 WBC (4.50-10.00) X 10*3/uL RBC (4.10-5.20) X 10*6/uL Hgb (12.0-15.0) g/dL MCHC (32.0-37.0) g/dL RDW (11.5-14.5) % Immature Gran # (0.00-0.04) X 10*3/uL Neutrophils # (1.80-7.70) X 10*3/uL Eosinophils # (0.04-0.35) X 10*3/uL Chloride (96-109) mmol/L Carbon Dioxide (20.0-27.5) mmol/L BUN (9.0-27.0) mg/dL Creatinine (0.6-1.5) mg/dL Est GFR (CKD-EPI)AfAm (60.0-200.0) Est GFR (CKD-EPI)NonAf (60.0-200.0) Glucose (70-110) mg/dL POC Glucose (mg/dL) 224 H (75-99) mg/dL Hemoglobin A1c (0.0-6.0) % Procalcitonin (0.02-0.09) ng/mL Assessment and Plan Plan: 1 acute COPD exacerbation with secondary shortness of breath. Chest x-ray is not showing any acute abnormalities. 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 13 Coronary artery disease with nonocclusive disease based on a cardiac catheterization from 2018 with mild disease involving the LAD, preserved LV function 14 chronic kidney disease, stage III, creatinine stable at 1.6 15 osteoporosis with multiple compression fracture deformity of the thoracic spine and history of chronic back pain secondary to previous falls 16 compression fracture of L2 spine 17 UTI secondary to enterococcus fecium , treated, repeat UA and cultures are still pending. Plan: Clinically improving Patient is less short of breath Continue the combination of bronchodilators and steroids Start tapering the patient on a prednisone taper as of tomorrow Anticoagulation Eliquis 2.5 mg twice a day Monitor renal function We'll follow. Long-term prognosis poor baseline above-mentioned comorbidities. Titrate FiO2 to maintain saturation above 90%
[2021-11-04 16:56] LABS: Glucose,Whole Blood 302 mg/dL (75-99)
[2021-11-04] MEDS ORDERED: DOCUSATE 100 MG CAP PO SCH (19:00)
[2021-11-04] MEDS: INSULIN DETEMIR (LEVEMIR) 100 UNIT/ML SYR SQ SCH (20:29)
[2021-11-04] MEDS: ATORVASTATIN 20 MG TAB PO SCH (20:29)
[2021-11-04] MEDS: MIRTAZAPINE 15 MG TAB PO SCH (20:29)
[2021-11-04] MEDS: SERTRALINE 50 MG TAB PO SCH (20:29)
[2021-11-04 20:42] LABS: Glucose,Whole Blood 330 mg/dL (75-99)
[2021-11-04] MEDS: HYDROcodone/APAP 7.5-325MG 1 EACH TAB PO PRN (23:44)
[2021-11-04] MEDS: ZOLPIDEM 5 MG TAB PO PRN (23:44)
--- NOTE | 2021-11-05 01:33 | P.PN ---
Subjective Progress Note Date: 11/04/21 81-year-old female with long history of COPD, chronic hypoxic respiratory failure on oxygen at 4 to 5 L at home, recent history of PE on anticoagulation with Eliquis, hypertension, hypothyroidism, obstructive sleep apnea on CPAP, history of basal cell carcinoma of the skin resected, chronic bilateral lower extremity edema, anxiety and previous history of smoking and other multiple medical problems presents to ER with complaints of worsening cough and shortness of breath. Patient does have cough with whitish sputum production. Denies any chest pain. Patient was discharged from the hospital on 11/01/2021 and was treated for acute kidney injury and also Enterococcus urinary tract infection. Patient also had fall couple weeks ago with the L2 compression fracture and was seen by orthopedic surgery recommended conservative management at this time. Patient was also diagnosed with new onset diabetes type 2 with A1c level 8.4 Chest x-ray showed chronic changes and cardiomegaly without acute pulmonary process. No significant change from prior. EKG showed sinus rhythm possible anterior myocardial infarction. Probably old. Laboratory data showed WBC 13.9 hemoglobin 12.1 and platelets 328 Sodium 135 potassium 4.4 chloride 93 bicarb is 36 BUN 26 and creatinine 1.68 troponin x1 - and proBNP 767 Urinalysis showed moderate leukocyte esterase RBCs 9 and WBC 7 and nitrate negative. 11/04/2021 Patient is currently in the recliner. Breathing status is better. Denies any complaints of chest pain. Cough without any sputum production. Patient is less bronchospastic today. Still having leg swelling. Continued on IVs Solu-Medrol, duo nebs and also on anticoagulation with Eliquis due to history of PE. Patient has been afebrile. No complaints of chest pain. Blood pressure is elev ated. Requiring oxygen at 8 L via nasal cannula. Patient otherwise denies any nausea or vomiting. Tolerating oral diet. Laboratory data showed WBC 15.6 hemoglobin 11.4 and platelets 319 sodium 137 potassium 4.6 chloride 91 bicarb is 31.6 BUN 27.6 and creatinine 1.9 and blood sugar is 279 today. Current medications reviewed. Objective - Vital Signs Vital signs: Vital Signs Temp 97.7 F 11/04/21 14:00 Pulse 80 11/04/21 16:41 Resp 18 11/04/21 14:00 BP 183/73 11/04/21 14:00 Pulse Ox 96 11/04/21 14:00 Intake & Output 11/03/21 11/04/21 11/04/21 18:59 06:59 18:59 Intake Total 100 1370 Balance 100 1370 Weight 99.79 kg 99.79 kg Intake: Oral 100 1370 Other: # Voids 2 2 # Bowel Movements 1 - Exam PHYSICAL EXAMINATION: Patient is lying in the bed comfortably, mild acute distress, awake alert and oriented.. HEENT: Normocephalic. Neck is supple. Pupils reactive. Nostrils clear. Oral cavity is moist. Neck reveals no JVD, carotid bruits, or thyromegaly. CHEST EXAMINATION: Trachea is central. Symmetrical expansion. Bilateral diminished air entry and scattered rhonchi and wheezing. Nonlabored breathing.. CARDIAC: Normal S1, S2 with no gallops. No murmurs ABDOMEN: Soft. Bowel sounds normal. No organomegaly. No abdominal bruits. Extremities: Bilateral 2+ pedal edema. No clubbing or cyanosis Neurologically awake, alert, oriented x3 with well-coordinated movements. No focal deficits noted Skin: No rash or skin lesions. Psychiatric: Cooperative. Nonsuicidal Musculoskeletal: No joint swelling or deformity. Normal range of motion. - Labs CBC & Chem 7: 11/04/21 07:36 11/04/21 07:36 Labs: Abnormal Lab Results - Last 24 Hours (Table) 11/03/21 11/04/21 11/04/21 Range/Units 20:32 07:05 07:36 WBC (4.50-10.00) X 10*3/uL RBC (4.10-5.20) X 10*6/uL Hgb (12.0-15.0) g/dL MCHC (32.0-37.0) g/dL RDW (11.5-14.5) % Immature Gran # (0.00-0.04) X 10*3/uL Neutrophils # (1.80-7.70) X 10*3/uL Eosinophils # (0.04-0.35) X 10*3/uL Chloride (96-109) mmol/L Carbon Dioxide (20.0-27.5) mmol/L BUN (9.0-27.0) mg/dL Creatinine (0.6-1.5) mg/dL Est GFR (CKD-EPI)AfAm (60.0-200.0) Est GFR (CKD-EPI)NonAf (60.0-200.0) Glucose (70-110) mg/dL POC Glucose (mg/dL) 265 H 261 H (75-99) mg/dL Hemoglobin A1c 8.5 H (0.0-6.0) % 11/04/21 11/04/21 11/04/21 Range/Units 07:36 07:36 11:49 WBC 15.68 H (4.50-10.00) X 10*3/uL RBC 3.96 L (4.10-5.20) X 10*6/uL Hgb 11.4 L (12.0-15.0) g/dL MCHC 30.4 L (32.0-37.0) g/dL RDW 14.9 H (11.5-14.5) % Immature Gran # 0.22 H (0.00-0.04) X 10*3/uL Neutrophils # 13.81 H (1.80-7.70) X 10*3/uL Eosinophils # 0 L (0.04-0.35) X 10*3/uL Chloride 91 L (96-109) mmol/L Carbon Dioxide 31.6 H (20.0-27.5) mmol/L BUN 27.6 H (9.0-27.0) mg/dL Creatinine 1.9 H (0.6-1.5) mg/dL Est GFR (CKD-EPI)AfAm 27.4 L (60.0-200.0) Est GFR (CKD-EPI)NonAf 23.7 L (60.0-200.0) Glucose 279 H (70-110) mg/dL POC Glucose (mg/dL) 224 H (75-99) mg/dL Hemoglobin A1c (0.0-6.0) % 11/04/21 Range/Units 16:55 WBC (4.50-10.00) X 10*3/uL RBC (4.10-5.20) X 10*6/uL Hgb (12.0-15.0) g/dL MCHC (32.0-37.0) g/dL RDW (11.5-14.5) % Immature Gran # (0.00-0.04) X 10*3/uL Neutrophils # (1.80-7.70) X 10*3/uL Eosinophils # (0.04-0.35) X 10*3/uL Chloride (96-109) mmol/L Carbon Dioxide (20.0-27.5) mmol/L BUN (9.0-27.0) mg/dL Creatinine (0.6-1.5) mg/dL Est GFR (CKD-EPI)AfAm (60.0-200.0) Est GFR (CKD-EPI)NonAf (60.0-200.0) Glucose (70-110) mg/dL POC Glucose (mg/dL) 302 H (75-99) mg/dL Hemoglobin A1c (0.0-6.0) % Assessment and Plan Assessment: Worsening shortness of breath secondary to acute COPD exacerbation with possible tracheobronchitis Chronic hypoxic respiratory failure on oxygen 5 L via nasal cannula at home Patient history of PE on anticoagulation with Eliquis Obstructive sleep apnea on CPAP at home Recent history of Enterococcus urinary tract infection treated with daptomycin. Chronic kidney disease stage III with baseline creatinine around 1.6. Creatin ine at admission is 1.68 Hypothyroidism Hypertension Nonocclusive coronary artery disease GERD Rheumatoid arthritis Compression fracture of L2 vertebrae. Conservative management per orthopedic surgery Previous history of fall Obesity with BMI 34.5 Osteoporosis with multiple compression fracture deformity of the thoracic spine vertebrae, with back pain secondary to fall 2 weeks prior to admission Chronic back pain on [place] 7.5 Diabetes type 2 recent onset with A1c 8.4 DVT prophylaxis patient is on full anticoagulation Plan: Patient will be current on oxygen supplementation currently at 6 L-->8L via nasal cannula. Continue with duo nebs and Solu-Medrol 60 mg every 6 hourly and antibiotics of cough Levaquin. Continue with insulin sliding scale and follow blood sugars closely. Continue with home medications including Eliquis for anticoagulation due to history of PE and blood pressure medications. Follow-up renal function. Pulmonary is on board. Prognosis is guarded with multiple medical problems and comorbid conditions. Time with Patient: Greater than 30
[2021-11-05] MEDS: methylPREDNISolone SOD SUCCI 125 MG/2 ML VIAL IV SCH ×2 (05:18→12:41)
[2021-11-05] MEDS: INSULIN ASPART (NovoLOG) 100 UNIT/ML VIAL SQ SCH ×4 (07:41→20:46)
[2021-11-05] MEDS: PANTOPRAZOLE 40 MG TABLET PO SCH (07:42)
[2021-11-05] MEDS: cloNIDine HCL 0.1 MG TAB PO SCH ×2 (07:42→20:47)
[2021-11-05] MEDS: APIXABAN 2.5 MG TABLET PO SCH ×2 (07:42→20:48)
[2021-11-05] MEDS: FUROSEMIDE 40 MG TAB PO SCH (07:42)
[2021-11-05] MEDS: amLODIPine 10 MG TAB PO SCH (07:42)
[2021-11-05] MEDS: MULTIVITAMINS, THERA 1 EACH TAB PO SCH (07:42)
[2021-11-05] MEDS: LEVOTHYROXINE 125 MCG TAB PO SCH (07:42)
[2021-11-05 07:45] LABS: Glucose,Whole Blood 361 mg/dL (75-99)
[2021-11-05] MEDS: carvediloL 12.5 MG TAB PO SCH ×2 (07:47→20:47)
[2021-11-05] MEDS: LEVOFLOXACIN 250 MG TAB PO SCH (07:47)
[2021-11-05] MEDS: HYDROcodone/APAP 7.5-325MG 1 EACH TAB PO PRN ×2 (07:51→20:47)
[2021-11-05] MEDS: IPRATROPIUM-ALBUTEROL 3 ML NEB INHALATION SCH ×4 (08:24→21:22)
[2021-11-05 08:52] LABS: Basophils % (A) 0 %; Eosinophils % (A) 0 %; HCT 37.6 % (34.0-46.0); HGB 11.5 gm/dL (11.4-16.0); Hypochromasia Moderate; Lymphocytes # (A) 1.3 k/uL (1.0-4.8); Lymphocytes % (A) 7 %; MCH 29.3 pg (25.0-35.0); MCHC 30.4 g/dL (31.0-37.0); Mean Platelet Volume 7.8; Monocytes # (A) 0.4 k/uL (0-1.0); Monocytes % (A) 2 %; Neutrophils # (A) 17.4 k/uL (1.3-7.7); Neutrophils % (A) 91 %; Platelet Count 298 k/uL (150-450); RBC 3.91 m/uL (3.80-5.40); RDW 14.6 % (11.5-15.5); WBC 19.1 k/uL (3.8-10.6)
[2021-11-05 08:56] LABS: MCV 96.3 fL (80.0-100.0)
[2021-11-05 09:09] LABS: African American GFR (CKD) 33 (>60 ml/min/1.73 sqM); Anion Gap 11 mmol/L; Blood Urea Nitrogen 39 mg/dL (7-17); Calcium 8.2 mg/dL (8.4-10.2); Carbon Dioxide 30 mmol/L (22-30); Chloride 94 mmol/L (98-107); Glucose 343 mg/dL (74-99); Non-African American GFR(CKD) 29 (>60 ml/min/1.73 sqM); Potassium 4.7 mmol/L (3.5-5.1); Sodium 135 mmol/L (137-145)
[2021-11-05 11:32] LABS: Glucose,Whole Blood 362 mg/dL (75-99)
--- NOTE | 2021-11-05 14:53 | P.PN ---
Subjective Progress Note Date: 11/05/21 81-year-old female with long history of COPD, chronic hypoxic respiratory failure on oxygen at 4 to 5 L at home, recent history of PE on anticoagulation with Eliquis, hypertension, hypothyroidism, obstructive sleep apnea on CPAP, history of basal cell carcinoma of the skin resected, chronic bilateral lower extremity edema, anxiety and previous history of smoking and other multiple medical problems presents to ER with complaints of worsening cough and shortness of breath. Patient does have cough with whitish sputum production. Denies any chest pain. Patient was discharged from the hospital on 11/01/2021 and was treated for acute kidney injury and also Enterococcus urinary tract infection. Patient also had fall couple weeks ago with the L2 compression fracture and was seen by orthopedic surgery recommended conservative management at this time. Patient was also diagnosed with new onset diabetes type 2 with A1c level 8.4 Chest x-ray showed chronic changes and cardiomegaly without acute pulmonary process. No significant change from prior. EKG showed sinus rhythm possible anterior myocardial infarction. Probably old. Laboratory data showed WBC 13.9 hemoglobin 12.1 and platelets 328 Sodium 135 potassium 4.4 chloride 93 bicarb is 36 BUN 26 and creatinine 1.68 troponin x1 - and proBNP 767 Urinalysis showed moderate leukocyte esterase RBCs 9 and WBC 7 and nitrate negative. 11/04/2021 Patient is currently in the recliner. Breathing status is better. Denies any complaints of chest pain. Cough without any sputum production. Patient is less bronchospastic today. Still having leg swelling. Continued on IVs Solu-Medrol, duo nebs and also on anticoagulation with Eliquis due to history of PE. Patient has been afebrile. No complaints of chest pain. Blood pressure is elevated. Requiring oxygen at 8 L via nasal cannula. Patient otherwise denies any nausea or vomiting. Tolerating oral diet. Laboratory data showed WBC 15.6 hemoglobin 11.4 and platelets 319 sodium 137 potassium 4.6 chloride 91 bicarb is 31.6 BUN 27.6 and creatinine 1.9 and blood sugar is 279 today. 11/05/2021 Patient is seen and evaluated in follow-up this morning reports to not feeling well and having increasing shortness of breath and also had some intermittent nausea this morning. Patient is being monitored by pulmonary following closely. Primary care provider in the outpatient setting as Dr. Pearson. Patient's blood sugars continue to be elevated and patient reports to not being diabetic alt flynn every time she is on steroids her blood sugars are elevated. Patient currently on long-acting 10 units and will increase to 20 and continue with sliding scale. Patient also continues to require more oxygen and is currently on 8 L via nasal cannula. Patient wanted to reiterate her CODE STATUS that she does not want to be on a ventilator although if requiring CPR patient is agreeable to this. Patient also continues on breathing inhalational treatments, IV steroids, oral Levaquin and will continue. Patient denies chest pain or palpitations. Patient is afebrile. Creatinine trending down. Review of systems: Constitutional: reports of fatigue, no reports of fever, or chills Cardiovascular: No reports of chest pain or palpitations Respiratory: reports of worsening shortness of breath and cough GI: reports of nausea this morning, no reports of vomiting, or diarrhea : No reports of dysuria or retention Neurovascular: reports of generalized weakness All medications have been reviewed Active Medications Acetaminophen (Acetaminophen Tab 500 Mg Tab) 500 mg PO Q6H PRN PRN Reason: Fever and/ or Pain Hydrocodone Bitart/Acetaminophen (Hydrocodone/Apap 7.5-325mg 1 Each Tab) 1 each PO Q6H PRN PRN Reason: Pain Last Admin: 11/05/21 07:51 Dose: 1 each Documented by: Albuterol/Ipratropium (Ipratropium-Albuterol 3 Ml Neb) 3 ml INHALATION RT-Q4H PRN PRN Reason: Shortness Of Breath Or Wheezing Albuterol/Ipratropium (Ipratropium-Albuterol 3 Ml Neb) 3 ml INHALATION RT-QID [facility] Last Admin: 11/05/21 12:14 Dose: 3 ml Documented by: Amlodipine Besylate (Amlodipine 10 Mg Tab) 10 mg PO DAILY@0700 [facility] Last Admin: 11/05/21 07:42 Dose: 10 mg Documented by: Apixaban (Apixaban 2.5 Mg Tablet) 2.5 mg PO BID [facility]; Protocol Last Admin: 11/05/21 07:42 Dose: 2.5 mg Documented by: Atorvastatin Calcium (Atorvastatin 20 Mg Tab) 20 mg PO HS@1900 [facility] Last Admin: 11/04/21 20:29 Dose: 20 mg Documented by: Carvedilol (Carvedilol 12.5 Mg Tab) 25 mg PO BID@0700,1900 [facility] Last Admin: 11/05/21 07:47 Dose: 25 mg Documented by: Clonidine (Clonidine Hcl 0.1 Mg Tab) 0.3 mg PO BID@0700,1900 [facility] Last Admin: 11/05/21 07:42 Dose: 0.3 mg Documented by: Docusate Sodium (Docusate 100 Mg Cap) 400 mg PO DAILY [facility] Last Admin: 11/04/21 09:03 Dose: 400 mg Documented by: Furosemide (Furosemide 40 Mg Tab) 40 mg PO DAILY [facility] Last Admin: 11/05/21 07:42 Dose: 40 mg Documented by: Guaifenesin/Dextromethorphan (Guaifenesin-Dm 100-10mg/5ml 10 Ml Cup) 10 ml PO Q6HR PRN PRN Reason: Cough Last Admin: 11/04/21 14:23 Dose: 10 ml Documented by: Insulin Aspart (Insulin Aspart (Novolog) 100 Unit/Ml Vial) 0 unit SQ [facility]; Protocol Last Admin: 11/05/21 12:40 Dose: 6 unit Documented by: Insulin Detemir (Insulin Detemir (Levemir) 100 Unit/Ml Syr) 20 unit SQ [facility] Levofloxacin (Levofloxacin 250 Mg Tab) 250 mg PO DAILY [facility] Last Admin: 11/05/21 07:47 Dose: 250 mg Documented by: Levothyroxine Sodium (Levothyroxine 125 Mcg Tab) 125 mcg PO DAILY@0700 [facility] Last Admin: 11/05/21 07:42 Dose: 125 mcg Documented by: Methylprednisolone Sodium Succinate (Methylprednisolone Sod Succi 125 Mg/2 Ml Vial) 60 mg IV Q6HR [facility] Last Admin: 11/05/21 12:41 Dose: 60 mg Documented by: Mirtazapine (Mirtazapine 15 Mg Tab) 15 mg PO HS@1900 [facility] Last Admin: 11/04/21 20:29 Dose: 15 mg Documented by: Multivitamins (Multivitamins, Thera 1 Each Tab) 1 each PO DAILY@0700 [facility] Last Admin: 11/05/21 07:42 Dose: 1 each Documented by: Ondansetron HCl (Ondansetron 4 Mg/2 Ml Vial) 4 mg IVP Q6HR PRN PRN Reason: Nausea And Vomiting Last Admin: 11/05/21 08:40 Dose: 4 mg Documented by: Pantoprazole Sodium (Pantoprazole 40 Mg Tablet) 40 mg PO DAILY@0700 [facility] Last Admin: 11/05/21 07:42 Dose: 40 mg Documented by: Sertraline HCl (Sertraline 50 Mg Tab) 50 mg PO HS@1900 [facility] Last Admin: 11/04/21 20:29 Dose: 50 mg Documented by: Silver Sulfadiazine (Silver Sulfadiazine 1% Cream 25 Gm Tube) 1 applic TOPICAL BID@0700,1900 [facility] Last Admin: 11/05/21 07:43 Dose: 1 applic Documented by: Zolpidem Tartrate (Zolpidem 5 Mg Tab) 5 mg PO HS PRN PRN Reason: Insomnia Last Admin: 11/04/21 23:44 Dose: 5 mg Documented by: Physical exam: Patient is sitting up in the chair comfortably, asleep although easily arousable, alert and oriented.. HEENT: Normocephalic. Neck is supple. Pupils reactive. Nostrils clear. Oral cavity is moist. Neck reveals no JVD, carotid bruits, or thyromegaly. CHEST EXAMINATION: Trachea is central. Symmetrical expansion. Bilateral diminished air entry and scattered rhonchi and wheezing. Nonlabored breathing.. CARDIAC: Normal S1, S2 with no gallops. No murmurs ABDOMEN: Soft. Bowel sounds normal. No organomegaly. No abdominal bruits. Extremities: Bilateral 2+ pedal edema. No clubbing or cyanosis Neurologically awake, alert, oriented x3 with well-coordinated movements. No focal deficits noted Skin: No rash or skin lesions. Psychiatric: Cooperative. Non-suicidal Musculoskeletal: No joint swelling or deformity. Normal range of motion. Assessment: Worsening shortness of breath secondary to acute COPD exacerbation with possible tracheobronchitis Chronic hypoxic respiratory failure on oxygen 5 L via nasal cannula at home, currently bumped up to 8 L Patient history of PE on anticoagulation with Eliquis Obstructive sleep apnea on CPAP at home Recent history of Enterococcus urinary tract infection treated with daptomycin. Chronic kidney disease stage III with baseline creatinine around 1.6. Creatinine at admission is 1.68 Hypothyroidism Hypertension Non-occlusive coronary artery disease GERD Rheumatoid arthritis Compression fracture of L2 vertebrae. Conservative management per orthopedic surgery Previous history of fall Obesity with BMI 34.5 Osteoporosis with multiple compression fracture deformity of the thoracic spine vertebrae, with back pain secondary to fall 2 weeks prior to admission Chronic back pain on [place] 7.5 Diabetes type 2 recent onset with A1c 8.4 DVT prophylaxis patient is on full anticoagulation Plan: Patient will be current on oxygen supplementation currently at 8L via nasal cannula. Discussed with nursing staff about weaning FiO2 as tolerated. Continue with duo nebs and Solu-Medrol 60 mg every 6 hourly and antibiotics of cough Levaquin. Continue with insulin sliding scale and follow blood sugars closely. Blood sugars continue to be elevated and will increase long acting. continue with sliding scale as well patient with Accu-Cheks before meals and at bedtime. Continue with home medications including Eliquis for anticoagulation due to history of PE and blood pressure medications. Follow-up renal function. Kidney functions trending down and currently 1.64. Pulmonary following Prognosis is guarded with multiple medical problems and comorbid conditions. CODE STATUS was discussed with the patient per her request as she wanted to address that she does not want mechanical ventilation but if requiring CPR or other measures patient like to continue with full code Recommend repeat labs in the a.m. and will continue to monitor closely Encouraged increased activity as tolerated The impression and plan of care has been dictated by Rekha Finn, Nurse Practitioner as directed. Dr. Hugo MD I have performed a history and examination and MDM of this patient, discussed the same with the dictator, and agree with the dictator's assessment and plan as written ,documented as a scribe. Based on total visit time, I have performed more than 50% of the visit. Objective - Vital Signs Vital signs: Vital Signs Temp 97.8 F 11/05/21 08:00 Pulse 84 11/05/21 08:36 Resp 16 11/05/21 08:10 BP 156/76 11/05/21 08:00 Pulse Ox 96 11/05/21 08:24 Intake & Output 11/04/21 11/05/21 11/05/21 18:59 06:59 18:59 Intake Total 1370 600 Balance 1370 600 Intake: Oral 1370 600 Other: # Voids 2 2 # Bowel Movements 1 - Labs CBC & Chem 7: 11/05/21 08:23 11/05/21 08:23 Labs: Abnormal Lab Results - Last 24 Hours (Table) 11/04/21 11/04/21 11/04/21 Range/Units 07:36 07:36 07:36 WBC 15.68 H (4.50-10.00) X 10*3/uL RBC 3.96 L (4.10-5.20) X 10*6/uL Hgb 11.4 L (12.0-15.0) g/dL MCHC 30.4 L (32.0-37.0) g/dL RDW 14.9 H (11.5-14.5) % Immature Gran # 0.22 H (0.00-0.04) X 10*3/uL Neutrophils # 13.81 H (1.80-7.70) X 10*3/uL Eosinophils # 0 L (0.04-0.35) X 10*3/uL Sodium (137-145) mmol/L Chloride 91 L (96-109) mmol/L Carbon Dioxide 31.6 H (20.0-27.5) mmol/L BUN 27.6 H (9.0-27.0) mg/dL Creatinine 1.9 H (0.6-1.5) mg/dL Est GFR (CKD-EPI)AfAm 27.4 L (60.0-200.0) Est GFR (CKD-EPI)NonAf 23.7 L (60.0-200.0) Glucose 279 H (70-110) mg/dL POC Glucose (mg/dL) (75-99) mg/dL Hemoglobin A1c 8.5 H (0.0-6.0) % Calcium (8.4-10.2) mg/dL 11/04/21 11/04/21 11/04/21 Range/Units 11:49 16:55 20:39 WBC (4.50-10.00) X 10*3/uL RBC (4.10-5.20) X 10*6/uL Hgb (12.0-15.0) g/dL MCHC (32.0-37.0) g/dL RDW (11.5-14.5) % Immature Gran # (0.00-0.04) X 10*3/uL Neutrophils # (1.80-7.70) X 10*3/uL Eosinophils # (0.04-0.35) X 10*3/uL Sodium (137-145) mmol/L Chloride (96-109) mmol/L Carbon Dioxide (20.0-27.5) mmol/L BUN (9.0-27.0) mg/dL Creatinine (0.6-1.5) mg/dL Est GFR (CKD-EPI)AfAm (60.0-200.0) Est GFR (CKD-EPI)NonAf (60.0-200.0) Glucose (70-110) mg/dL POC Glucose (mg/dL) 224 H 302 H 330 H (75-99) mg/dL Hemoglobin A1c (0.0-6.0) % Calcium (8.4-10.2) mg/dL 11/05/21 11/05/21 11/05/21 Range/Units 06:55 08:23 08:23 WBC 19.1 H (4.50-10.00) X 10*3/uL RBC (4.10-5.20) X 10*6/uL Hgb (12.0-15.0) g/dL MCHC 30.4 L (32.0-37.0) g/dL RDW (11.5-14.5) % Immature Gran # (0.00-0.04) X 10*3/uL Neutrophils # 17.4 H (1.80-7.70) X 10*3/uL Eosinophils # (0.04-0.35) X 10*3/uL Sodium 135 L (137-145) mmol/L Chloride 94 L (96-109) mmol/L Carbon Dioxide (20.0-27.5) mmol/L BUN 39 H (9.0-27.0) mg/dL Creatinine 1.64 H (0.6-1.5) mg/dL Est GFR (CKD-EPI)AfAm (60.0-200.0) Est GFR (CKD-EPI)NonAf (60.0-200.0) Glucose 343 H (70-110) mg/dL POC Glucose (mg/dL) 361 H (75-99) mg/dL Hemoglobin A1c (0.0-6.0) % Calcium 8.2 L (8.4-10.2) mg/dL
--- NOTE | 2021-11-05 15:19 | P.PN ---
Subjective Progress Note Date: 11/05/21 Principal diagnosis: Shortness of breath This is a 81-year-old female patient was readmitted after 48 hours of being discharged from the hospital. The patient was in the hospital for a enterococcal confusion UTI and acute kidney injury for which she was treated with antibiotics initially with vancomycin and later on with daptomycin, the patient's condition was stabilized. The patient was treated also for an acute kidney injury, she was having some nausea and emesis that recovered, she was discharged home. She came in yesterday to the burst department because of worsening shortness of breath. Apparently she was unable to breathe and she was not responding to bronchodilators. She also reported some increased lower extremity edema. She called EMS and the patient was brought in to the hospital. Showing a temperature of 99.7 at time of admission. Blood pressure was slightly elevated at 174/79. The at the was at 13.9, BUN was 26 with a creatinine of 1.68, LFTs were normal, coagulation profile was normal, troponin was negative and the proBNP level was 767 and the chest x-ray showed chronic changes with cardiomegaly without any acute cardio pulmonary process. 11/04/2021, the patient is feeling better. Less rhonchus breath and wheezing compared to yesterday. She does have some tremors. Minimal copy no significant sputum production. He remains on bronchodilators and steroids. He remains on long-term and to coagulation with Eliquis 2.5 mg by mouth twice a day. White cell count of 15.6 with a hemoglobin of 11.4 and the patient is a creatinine of 1.9, which is slightly higher compared to yesterday. Sodium is at 137. On 11/05/2021 patient seen in follow-up on medical surgical floor, she is currently on 8 L of oxygen pulse ox is 96%, still a bit wheezy and dyspneic, and patient remains on nebulized bronchodilators, IV steroids with Solu-Medrol 60 mg every 6 hours dose of daily Lasix, and Mucinex, no new chest x-ray today. No chest discomfort. No hemoptysis, today's labs have been reviewed, white blood cell count is 19.1, hemoglobin is 11.5, sodium is 135, potassium is 4.7, chloride is 94, BUN is 39, creatinine is 1.64. Pro-calcitonin level is 0.22. Patient currently remains on Levaquin. Objective - Vital Signs Vital signs: Vital Signs Temp 97.7 F 11/05/21 14:00 Pulse 62 11/05/21 14:00 Resp 20 11/05/21 14:00 BP 134/68 11/05/21 14:00 Pulse Ox 98 11/05/21 14:00 Intake & Output 11/04/21 11/05/21 11/05/21 18:59 06:59 18:59 Intake Total 1370 600 Balance 1370 600 Intake: Oral 1370 600 Other: # Voids 2 2 # Bowel Movements 1 - Exam GENERAL EXAM: Alert, very pleasant 81-year-old white female on 8 L of oxygen with a pulse ox of 96%, wheezy, short of breath with conversation comfortable in no apparent distress. HEAD: Normocephalic/atraumatic. EYES: Normal reaction of pupils, equal size. Conjunctiva pink, sclera white. NOSE: Clear with pink turbinates. THROAT: No erythema or exudates. NECK: No masses, no JVD, no thyroid enlargement, no adenopathy. CHEST: No chest wall deformity. Symmetrical expansion. LUNGS: Equal air entry with no crackles, wheeze, rhonchi or dullness. CVS: Regular rate and rhythm, normal S1 and S2, no gallops, no murmurs, no rubs ABDOMEN: Soft, nontender. No hepatosplenomegaly, normal bowel sounds, no guarding or rigidity. EXTREMITIES: No clubbing, no edema, no cyanosis, 2+ pulses and upper and lower extremities. MUSCULOSKELETAL: Muscle strength and tone normal. SPINE: No scoliosis or deformity SKIN: No rashes CENTRAL NERVOUS SYSTEM: Alert and oriented -3. No focal deficits, tone is normal in all 4 extremities. PSYCHIATRIC: Alert and oriented -3. Appropriate affect. Intact judgment and insight. - Labs CBC & Chem 7: 11/05/21 08:23 11/05/21 08:23 Labs: Abnormal Lab Results - Last 24 Hours (Table) 11/04/21 11/04/21 11/05/21 Range/Units 16:55 20:39 06:55 WBC (3.8-10.6) k/uL MCHC (31.0-37.0) g/dL Neutrophils # (1.3-7.7) k/uL Sodium (137-145) mmol/L Chloride (98-107) mmol/L BUN (7-17) mg/dL Creatinine (0.52-1.04) mg/dL Glucose (74-99) mg/dL POC Glucose (mg/dL) 302 H 330 H 361 H (75-99) mg/dL Calcium (8.4-10.2) mg/dL 11/05/21 11/05/21 11/05/21 Range/Units 08:23 08:23 11:09 WBC 19.1 H (3.8-10.6) k/uL MCHC 30.4 L (31.0-37.0) g/dL Neutrophils # 17.4 H (1.3-7.7) k/uL Sodium 135 L (137-145) mmol/L Chloride 94 L (98-107) mmol/L BUN 39 H (7-17) mg/dL Creatinine 1.64 H (0.52-1.04) mg/dL Glucose 343 H (74-99) mg/dL POC Glucose (mg/dL) 362 H (75-99) mg/dL Calcium 8.2 L (8.4-10.2) mg/dL Assessment and Plan Plan: Assessment: #1. Acute COPD exacerbation with secondary shortness of breath. Chest x-ray is not showing any acute abnormalities. The patient is known to have chronic hypoxic respiratory failure maintained on 5 L O2 nasal cannula, currently on 6 L #2. Acute on chronic hypoxemia #3. 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 Rheumatoid arthritis #5. Obstructive sleep apnea nontolerant to CPAP therapy #6. History of skin cancer in the form of squamous cell carcinoma and basal cell carcinoma and melanoma, all resected #7. History of diverticular disease #8. Gastroesophageal reflux disease #9. Remote history of pulmonary embolism, in a postoperative setting #10. Hypertension #11. Hypothyroidism #12. Chronic back pain has been on [place] 7.5 and she'll be given 1 tablet every 24 hours on an as-needed basis for ongoing pain. #13. Coronary artery disease with nonocclusive disease based on a cardiac catheterization from 2018 with mild disease involving the LAD, preserved LV function #14. Chronic kidney disease, stage III, creatinine stable at 1.6 #15. Osteoporosis with multiple compression fracture deformity of the thoracic spine and history of chronic back pain secondary to previous falls #16. Compression fracture of L2 spine #17. UTI secondary to enterococcus fecium , treated, repeat UA and cultures are still pending Plan: Continue IV steroids, Continue nebulized bronchodilators Continue oral Lasix Follow-up chest x-ray tomorrow Follow-up labs including CBC and BMP Still dyspneic, bronchospastic Not quite ready for discharge Continue weaning FiO2 I have personally seen and examined the patient, performed the documentation and the assessment and plan as written. Number of minutes spent on the visit: [10] Time with Patient: Less than 30
[2021-11-05 16:54] LABS: Glucose,Whole Blood 256 mg/dL (75-99)
[2021-11-05] MEDS: methylPREDNISolone SOD SUCCI 40 MG/ML 1 ML VIAL IV SCH (17:50)
[2021-11-05 20:26] LABS: Glucose,Whole Blood 317 mg/dL (75-99)
[2021-11-05] MEDS: DOCUSATE 100 MG CAP PO SCH (20:46)
[2021-11-05] MEDS: ZOLPIDEM 5 MG TAB PO PRN (20:46)
[2021-11-05] MEDS: SERTRALINE 50 MG TAB PO SCH (20:48)
[2021-11-05] MEDS: ATORVASTATIN 20 MG TAB PO SCH (20:48)
[2021-11-05] MEDS: MIRTAZAPINE 15 MG TAB PO SCH (20:48)
[2021-11-05] MEDS: INSULIN DETEMIR (LEVEMIR) 100 UNIT/ML SYR SQ SCH (20:52)
[2021-11-06] MEDS: methylPREDNISolone SOD SUCCI 40 MG/ML 1 ML VIAL IV SCH ×3 (00:07→17:52)
[2021-11-06 07:12] LABS: Glucose,Whole Blood 283 mg/dL (75-99)
[2021-11-06] MEDS: HYDROcodone/APAP 7.5-325MG 1 EACH TAB PO PRN ×2 (07:55→21:20)
[2021-11-06] MEDS: LEVOFLOXACIN 250 MG TAB PO SCH (07:56)
[2021-11-06] MEDS: PANTOPRAZOLE 40 MG TABLET PO SCH (07:56)
[2021-11-06] MEDS: cloNIDine HCL 0.1 MG TAB PO SCH ×2 (07:56→21:21)
[2021-11-06] MEDS: MULTIVITAMINS, THERA 1 EACH TAB PO SCH (07:56)
[2021-11-06] MEDS: carvediloL 12.5 MG TAB PO SCH ×2 (07:56→21:21)
[2021-11-06] MEDS: amLODIPine 10 MG TAB PO SCH (07:56)
[2021-11-06] MEDS: APIXABAN 2.5 MG TABLET PO SCH ×2 (07:57→21:21)
[2021-11-06] MEDS: FUROSEMIDE 40 MG TAB PO SCH (07:57)
[2021-11-06] MEDS: LEVOTHYROXINE 125 MCG TAB PO SCH (07:57)
[2021-11-06] MEDS: IPRATROPIUM-ALBUTEROL 3 ML NEB INHALATION SCH ×4 (08:21→20:16)
[2021-11-06] MEDS: INSULIN ASPART (NovoLOG) 100 UNIT/ML VIAL SQ SCH ×4 (08:30→21:21)
--- NOTE | 2021-11-06 10:14 | P.PN ---
Subjective Progress Note Date: 11/06/21 Principal diagnosis: Shortness of breath This is a 81-year-old female patient was readmitted after 48 hours of being discharged from the hospital. The patient was in the hospital for a enterococcal confusion UTI and acute kidney injury for which she was treated with antibiotics initially with vancomycin and later on with daptomycin, the patient's condition was stabilized. The patient was treated also for an acute kidney injury, she was having some nausea and emesis that recovered, she was discharged home. She came in yesterday to the burst department because of worsening shortness of breath. Apparently she was unable to breathe and she was not responding to bronchodilators. She also reported some increased lower extremity edema. She called EMS and the patient was brought in to the hospital. Showing a temperature of 99.7 at time of admission. Blood pressure was slightly elevated at 174/79. The at the was at 13.9, BUN was 26 with a creatinine of 1.68, LFTs were normal, coagulation profile was normal, troponin was negative and the proBNP level was 767 and the chest x-ray showed chronic changes with cardiomegaly without any acute cardio pulmonary process. 11/04/2021, the patient is feeling better. Less rhonchus breath and wheezing compared to yesterday. She does have some tremors. Minimal copy no significant sputum production. He remains on bronchodilators and steroids. He remains on long-term and to coagulation with Eliquis 2.5 mg by mouth twice a day. White cell count of 15.6 with a hemoglobin of 11.4 and the patient is a creatinine of 1.9, which is slightly higher compared to yesterday. Sodium is at 137. On 11/05/2021 patient seen in follow-up on medical surgical floor, she is currently on 8 L of oxygen pulse ox is 96%, still a bit wheezy and dyspneic, and patient remains on nebulized bronchodilators, IV steroids with Solu-Medrol 60 mg every 6 hours dose of daily Lasix, and Mucinex, no new chest x-ray today. No chest discomfort. No hemoptysis, today's labs have been reviewed, white blood cell count is 19.1, hemoglobin is 11.5, sodium is 135, potassium is 4.7, chloride is 94, BUN is 39, creatinine is 1.64. Pro-calcitonin level is 0.22. Patient currently remains on Levaquin. On 11/06/2021 patient seen in follow-up on medical surgical floor. She sits up in the recliner, her oxygen flow was increased to 8 L this morning for an episode of increased shortness of breath. Earlier today she was satting 96% on 5 L, currently she is satting 100% on 8 L, and FiO2 was subsequently dropped down to 6 L. Lung sounds are diminished with scattered wheezes, she does have occasional congestive cough, no phlegm production. She is short of breath with any exertion. No fever, a lot of signs are stable. She remains on IV steroids, nebulized bronchodilators and antibiotics. She remains on oral anticoagulation in the form of Apixaban. Continues on a once daily dose of Lasix. No new labs today, no new chest x-ray. Lung sounds are positive for scattered wheezes. No other acute events overnight. Patient has a meeting with hospice this afternoon, she has decided she wants no aggressive resuscitation, no life arellano pport. She is considering hospice Objective - Vital Signs Vital signs: Vital Signs Temp 97.9 F 11/06/21 08:00 Pulse 82 11/06/21 08:28 Resp 18 11/06/21 08:28 BP 176/72 11/06/21 08:00 Pulse Ox 96 11/06/21 08:00 Intake & Output 11/05/21 11/06/21 11/06/21 18:59 06:59 18:59 Other: Voiding Method Toilet # Voids 1 - Exam GENERAL EXAM: Alert, very pleasant 81-year-old white female on 8 L of oxygen with a pulse ox of 100%, wheezy, short of breath with conversation comfortable in no apparent distress. HEAD: Normocephalic/atraumatic. EYES: Normal reaction of pupils, equal size. Conjunctiva pink, sclera white. NOSE: Clear with pink turbinates. THROAT: No erythema or exudates. NECK: No masses, no JVD, no thyroid enlargement, no adenopathy. CHEST: No chest wall deformity. Symmetrical expansion. LUNGS: Equal air entry with no crackles, wheeze, rhonchi or dullness. CVS: Regular rate and rhythm, normal S1 and S2, no gallops, no murmurs, no rubs ABDOMEN: Soft, nontender. No hepatosplenomegaly, normal bowel sounds, no guarding or rigidity. EXTREMITIES: No clubbing, no edema, no cyanosis, 2+ pulses and upper and lower extremities. MUSCULOSKELETAL: Muscle strength and tone normal. SPINE: No scoliosis or deformity SKIN: No rashes CENTRAL NERVOUS SYSTEM: Alert and oriented -3. No focal deficits, tone is normal in all 4 extremities. PSYCHIATRIC: Alert and oriented -3. Appropriate affect. Intact judgment and insight. - Labs CBC & Chem 7: 11/05/21 08:23 11/05/21 08:23 Labs: Abnormal Lab Results - Last 24 Hours (Table) 11/05/21 11/05/21 11/05/21 Range/Units 11:09 16:53 20:25 POC Glucose (mg/dL) 362 H 256 H 317 H (75-99) mg/dL 11/06/21 Range/Units 07:11 POC Glucose (mg/dL) 283 H (75-99) mg/dL Assessment and Plan Plan: Assessment: #1. Acute COPD exacerbation with secondary shortness of breath. Chest x-ray is not showing any acute abnormalities. The patient is known to have chronic h ypoxic respiratory failure maintained on 5 L O2 nasal cannula, currently on 8 L #2. Acute on chronic hypoxemia #3. 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 Rheumatoid arthritis #5. Obstructive sleep apnea nontolerant to CPAP therapy #6. History of skin cancer in the form of squamous cell carcinoma and basal cell carcinoma and melanoma, all resected #7. History of diverticular disease #8. Gastroesophageal reflux disease #9. Remote history of pulmonary embolism, in a postoperative setting #10. Hypertension #11. Hypothyroidism #12. Chronic back pain has been on [place] 7.5 and she'll be given 1 tablet every 24 hours on an as-needed basis for ongoing pain. #13. Coronary artery disease with nonocclusive disease based on a cardiac c atheterization from 2018 with mild disease involving the LAD, preserved LV function #14. Chronic kidney disease, stage III, creatinine stable at 1.6 #15. Osteoporosis with multiple compression fracture deformity of the thoracic spine and history of chronic back pain secondary to previous falls #16. Compression fracture of L2 spine #17. UTI secondary to enterococcus fecium , treated, repeat UA and cultures are still pending Plan: Continue IV steroids, Continue nebulized bronchodilators Continue oral Lasix Patient is a dyspneic with any exertion We'll continue current medical treatment She has a informational meeting with hospice this afternoon She is considering hospice We'll continue supportive medical treatment in the meantime I have personally seen and examined the patient, performed the documentation and the assessment and plan as written. Number of minutes spent on the visit: [10] Time with Patient: Less than 30
[2021-11-06 10:42] LABS: Basophils % (A) 0 %; Eosinophils % (A) 0 %; HCT 31.7 % (34.0-46.0); HGB 10.3 gm/dL (11.4-16.0); Hypochromasia Slight; Lymphocytes # (A) 0.8 k/uL (1.0-4.8); Lymphocytes % (A) 5 %; MCH 30.4 pg (25.0-35.0); MCHC 32.3 g/dL (31.0-37.0); MCV 93.9 fL (80.0-100.0); Mean Platelet Volume 7.6; Monocytes # (A) 0.6 k/uL (0-1.0); Monocytes % (A) 4 %; Neutrophils # (A) 14.4 k/uL (1.3-7.7); Neutrophils % (A) 90 %; Platelet Count 289 k/uL (150-450); RBC 3.38 m/uL (3.80-5.40); RDW 15.1 % (11.5-15.5)
[2021-11-06] MEDS: DOCUSATE 100 MG CAP PO SCH ×2 (10:53→21:29)
[2021-11-06 11:04] LABS: African American GFR (CKD) 39 (>60 ml/min/1.73 sqM); Anion Gap 7 mmol/L; Blood Urea Nitrogen 40 mg/dL (7-17); Calcium 7.6 mg/dL (8.4-10.2); Carbon Dioxide 32 mmol/L (22-30); Chloride 94 mmol/L (98-107); Glucose 337 mg/dL (74-99); Non-African American GFR(CKD) 34 (>60 ml/min/1.73 sqM); Potassium 4.5 mmol/L (3.5-5.1); Sodium 133 mmol/L (137-145)
[2021-11-06 11:48] LABS: Glucose,Whole Blood 344 mg/dL (75-99)
--- NOTE | 2021-11-06 14:52 | CDI ---
Documentation Clarification Form Date: 11/06/2021 02:07:00 PM From: Betzy Sadler RN, CCDS Admit Date: 11/03/2021 10:41:00 AM Patient Name: Sissy Franco Visit Number: [id number] Discharge Date: ATTENTION: The Clinical Documentation Specialists (CDI) and [facility] Coding Staff appreciate your assistance in clarifying documentation. Please respond to the clarification below the line at the bottom and electronically sign. The CDI & [facility] Coding staff will review the response and follow-up if needed. Please note: Queries are made part of the Legal Health Record. If you have any questions, please contact the author of this message via ITS. Dr. Ying Pearson Your patient has history of chronic hypoxic respiratory failure maintained on 5/L 02 nasal cannula. Progress notes on 11/05 also has acute on chronic hypoxemia. Based on this information and the findings below, is there an additional diagnosis that is clinically appropriate for this patient? History/Risk Factors: COPD, Rheumatoid arthritis, Obstructive sleep apnea, pulmonary embolism. Tobacco use: Home oxygen: 5 L NC Clinical Indicators: 81-year-old female admit with acute COPD exacerbation, increasing shortness of breath. She has known chronic hypoxic respiratory failure maintained on 5 l O2 cannula, currently on 8/L NC. 11/03 Vital signs: 174/79 79 22 99.7 97 % on flow rate 15 on Non-rebreather; 168/80 94 22 98.5 93 % 8/L high flow 11/03 CXR: chronic changes with cardiomegaly without any acute cardio pulmonary process. 11/05 progress note Lung/Breathing assessment: still a bit wheezy and dyspneic, and remains on nebulized bronchodilators. Treatment: Monitor O2 Sat's (Titrate) Albuterol/Ipratropium Duoneb 0.5 MG-3 mg/3ml shannon Q4 PRN Levaquin 250 MG PO Daily Solu-Medrol 60MG IV Q 6 HRS11/03-11/05 40 MG IV Q 8 HR 11/05 (Titrate) Is there an additional diagnosis that is clinically appropriate for this patient who has acute on chronic hypoxemia? [ ] Acute on chronic hypoxemic Respiratory Failure (pO2 <60 mm Hg or SpO2 <91% on room air) [ ] Acute Hypercapnia Respiratory Failure (pCO2 >50 and pH <7.35) [ ] Other Diagnosis, please specify [ ] Unable to determine (Template Last Revised: October 2020) MTDD
--- NOTE | 2021-11-06 15:27 | P.PN ---
Subjective Progress Note Date: 11/06/21 81-year-old female with long history of COPD, chronic hypoxic respiratory failure on oxygen at 4 to 5 L at home, recent history of PE on anticoagulation with Eliquis, hypertension, hypothyroidism, obstructive sleep apnea on CPAP, history of basal cell carcinoma of the skin resected, chronic bilateral lower extremity edema, anxiety and previous history of smoking and other multiple medical problems presents to ER with complaints of worsening cough and shortness of breath. Patient does have cough with whitish sputum production. Denies any chest pain. Patient was discharged from the hospital on 11/01/2021 and was treated for acute kidney injury and also Enterococcus urinary tract infection. Patient also had fall couple weeks ago with the L2 compression fracture and was seen by orthopedic surgery recommended conservative management at this time. Patient was also diagnosed with new onset diabetes type 2 with A1c level 8.4 Chest x-ray showed chronic changes and cardiomegaly without acute pulmonary process. No significant change from prior. EKG showed sinus rhythm possible anterior myocardial infarction. Probably old. Laboratory data showed WBC 13.9 hemoglobin 12.1 and platelets 328 Sodium 135 potassium 4.4 chloride 93 bicarb is 36 BUN 26 and creatinine 1.68 troponin x1 - and proBNP 767 Urinalysis showed moderate leukocyte esterase RBCs 9 and WBC 7 and nitrate negative. 11/04/2021 Patient is currently in the recliner. Breathing status is better. Denies any complaints of chest pain. Cough without any sputum production. Patient is less bronchospastic today. Still having leg swelling. Continued on IVs Solu-Medrol, duo nebs and also on anticoagulation with Eliquis due to history of PE. Patient has been afebrile. No complaints of chest pain. Blood pressure is elevated. Requiring oxygen at 8 L via nasal cannula. Patient otherwise denies any nausea or vomiting. Tolerating oral diet. Laboratory data showed WBC 15.6 hemoglobin 11.4 and platelets 319 sodium 137 potassium 4.6 chloride 91 bicarb is 31.6 BUN 27.6 and creatinine 1.9 and blood sugar is 279 today. 11/05/2021 Patient is seen and evaluated in follow-up this morning reports to not feeling well and having increasing shortness of breath and also had some intermittent nausea this morning. Patient is being monitored by pulmonary following closely. Primary care provider in the outpatient setting as Dr. Pearson. Patient's blood sugars continue to be elevated and patient reports to not being diabetic alt flynn every time she is on steroids her blood sugars are elevated. Patient currently on long-acting 10 units and will increase to 20 and continue with sliding scale. Patient also continues to require more oxygen and is currently on 8 L via nasal cannula. Patient wanted to reiterate her CODE STATUS that she does not want to be on a ventilator although if requiring CPR patient is agreeable to this. Patient also continues on breathing inhalational treatments, IV steroids, oral Levaquin and will continue. Patient denies chest pain or palpitations. Patient is afebrile. Creatinine trending down. 11/06/2021 Patient is seen in follow-up this morning continues with shortness of breath with pulmonary following closely. She is blood sugars continue to be elevated as well and have increased the long acting and will further increase and continue with sliding scale and Accu-Cheks before meals and at bedtime. Per patient per plan is to meet with [facility] hosp[facility] and her daughter later this evening as she routinely follows with [facility] palliative care in the outpatient setting. Patient reports to feeling worse today and having increasing shortness of breath although nursing staff weaning FiO2 as tolerated back down to 6 L. Patient feels more comfortable on 8 L. Creatinine continues to be mildly elevated at 1.44 although improved from previous and patient is maintained on oral Lasix. A bit hyponatremic as sodium is 133. Encouraged oral intake. Also encourage the patient to increase activity as tolerated. Will follow-up chest x-ray in the morning along with repeat labs. She denies chest pain or palpitations. Patient is afebrile. Patient denies nausea or vomiting and rep orts to not eating very much and having no appetite. Review of systems: Constitutional: reports of fatigue, no reports of fever, or chills Cardiovascular: No reports of chest pain or palpitations Respiratory: reports of worsening shortness of breath and cough GI: reports of nausea this morning, no reports of vomiting, or diarrhea : No reports of dysuria or retention Neurovascular: reports of generalized weakness All medications have been reviewed Active Medications Acetaminophen (Acetaminophen Tab 500 Mg Tab) 500 mg PO Q6H PRN PRN Reason: Fever and/ or Pain Hydrocodone Bitart/Acetaminophen (Hydrocodone/Apap 7.5-325mg 1 Each Tab) 1 each PO Q6H PRN PRN Reason: Pain Last Admin: 11/06/21 07:55 Dose: 1 each Documented by: Albuterol/Ipratropium (Ipratropium-Albuterol 3 Ml Neb) 3 ml INHALATION RT-Q4H PRN PRN Reason: Shortness Of Breath Or Wheezing Albuterol/Ipratropium (Ipratropium-Albuterol 3 Ml Neb) 3 ml INHALATION RT-QID [facility] Last Admin: 11/06/21 08:21 Dose: 3 ml Documented by: Amlodipine Besylate (Amlodipine 10 Mg Tab) 10 mg PO DAILY@0700 [facility] Last Admin: 11/06/21 07:56 Dose: 10 mg Documented by: Apixaban (Apixaban 2.5 Mg Tablet) 2.5 mg PO BID [facility]; Protocol Last Admin: 11/06/21 07:57 Dose: 2.5 mg Documented by: Atorvastatin Calcium (Atorvastatin 20 Mg Tab) 20 mg PO HS@1900 [facility] Last Admin: 11/05/21 20:48 Dose: 20 mg Documented by: Carvedilol (Carvedilol 12.5 Mg Tab) 25 mg PO BID@0700,1900 [facility] Last Admin: 11/06/21 07:56 Dose: 25 mg Documented by: Clonidine (Clonidine Hcl 0.1 Mg Tab) 0.3 mg PO BID@0700,1900 [facility] Last Admin: 11/06/21 07:56 Dose: 0.3 mg Documented by: Docusate Sodium (Docusate 100 Mg Cap) 400 mg PO DAILY [facility] Last Admin: 11/05/21 20:46 Dose: 400 mg Documented by: Furosemide (Furosemide 40 Mg Tab) 40 mg PO DAILY [facility] Last Admin: 11/06/21 07:57 Dose: 40 mg Documented by: Guaifenesin/Dextromethorphan (Guaifenesin-Dm 100-10mg/5ml 10 Ml Cup) 10 ml PO Q6HR PRN PRN Reason: Cough Last Admin: 11/04/21 14:23 Dose: 10 ml Documented by: Insulin Aspart (Insulin Aspart (Novolog) 100 Unit/Ml Vial) 0 unit SQ [facility]; Protocol Last Admin: 11/05/21 20:46 Dose: 5 unit Documented by: Insulin Detemir (Insulin Detemir (Levemir) 100 Unit/Ml Syr) 20 unit SQ [facility] Last Admin: 11/05/21 20:52 Dose: 20 unit Documented by: Levofloxacin (Levofloxacin 250 Mg Tab) 250 mg PO DAILY [facility] Last Admin: 11/06/21 07:56 Dose: 250 mg Documented by: Levothyroxine Sodium (Levothyroxine 125 Mcg Tab) 125 mcg PO DAILY@0700 [facility] Last Admin: 11/06/21 07:57 Dose: 125 mcg Documented by: Methylprednisolone Sodium Succinate (Methylprednisolone Sod Succi 40 Mg/Ml 1 Ml Vial) 40 mg IV Q8HR [facility] Last Admin: 11/06/21 07:56 Dose: 40 mg Documented by: Mirtazapine (Mirtazapine 15 Mg Tab) 15 mg PO HS@190 [facility] Last Admin: 11/05/21 20:48 Dose: 15 mg Documented by: Multivitamins (Multivitamins, Thera 1 Each Tab) 1 each PO DAILY@0700 [facility] Last Admin: 11/06/21 07:56 Dose: 1 each Documented by: Ondansetron HCl (Ondansetron 4 Mg/2 Ml Vial) 4 mg IVP Q6HR PRN PRN Reason: Nausea And Vomiting Last Admin: 11/05/21 08:40 Dose: 4 mg Documented by: Pantoprazole Sodium (Pantoprazole 40 Mg Tablet) 40 mg PO DAILY@0700 [facility] Last Admin: 11/06/21 07:56 Dose: 40 mg Documented by: Sertraline HCl (Sertraline 50 Mg Tab) 50 mg PO HS@190 [facility] Last Admin: 11/05/21 20:48 Dose: 50 mg Documented by: Silver Sulfadiazine (Silver Sulfadiazine 1% Cream 25 Gm Tube) 1 applic TOPICAL BID@0700,190 [facility] Last Admin: 11/05/21 20:48 Dose: 1 applic Documented by: Zolpidem Tartrate (Zolpidem 5 Mg Tab) 5 mg PO HS PRN PRN Reason: Insomnia Last Admin: 11/05/21 20:46 Dose: 5 mg Documented by: Physical exam: Patient is sitting up in the chair comfortably, awake, alert and oriented 3, ill-appearing.. HEENT: Normocephalic. Neck is supple. Pupils reactive. Nostrils clear. Oral cavity is moist. Neck reveals no JVD, carotid bruits, or thyromegaly. CHEST EXAMINATION: Trachea is central. Symmetrical expansion. Bilateral diminished air entry and scattered rhonchi and wheezing. Nonlabored breathing.. CARDIAC: Normal S1, S2 with no gallops. No murmurs ABDOMEN: Soft. Bowel sounds normal. No organomegaly. No abdominal bruits. Extremities: Bilateral 2+ pedal edema. No clubbing or cyanosis Neurologically awake, alert, oriented x3 with well-coordinated movements. No focal deficits noted Skin: No rash or skin lesions. Psychiatric: Cooperative. Non-suicidal Musculoskeletal: No joint swelling or deformity. Normal range of motion. Assessment: Worsening shortness of breath secondary to acute COPD exacerbation with possible tracheobronchitis Chronic hypoxic respiratory failure on oxygen 5 L via nasal cannula at home, currently bumped up to 8 L Patient history of PE on anticoagulation with Eliquis Obstructive sleep apnea on CPAP at home Recent history of Enterococcus urinary tract infection treated with daptomycin. Chronic kidney disease stage III with baseline creatinine around 1.6. Hypothyroidism Hypertension Non-occlusive coronary artery disease GERD Rheumatoid arthritis Compression fracture of L2 vertebrae. Conservative management per orthopedic surgery Previous history of fall Obesity with BMI 34.5 Osteoporosis with multiple compression fracture deformity of the thoracic spine vertebrae, with back pain secondary to fall 2 weeks prior to admission Chronic back pain on [place] 7.5 Diabetes type 2 recent onset with A1c 8.4 DVT prophylaxis patient is on full anticoagulation No code, okay for CPR, no mechanical ventilation Plan: Patient will be current on oxygen supplementation currently at 8L via nasal cannula. Discussed with nursing staff about weaning FiO2 as tolerated. Continue with duo nebs and Solu-Medrol 60 mg every 6 hourly and antibiotics of oral Levaquin. Continue with insulin sliding scale and follow blood sugars closely. Blood sug ars continue to be elevated and will increase long acting again. continue with sliding scale as well patient with Accu-Cheks before meals and at bedtime. Continue with home medications including Eliquis for anticoagulation due to history of PE and blood pressure medications. Follow-up renal function. Kidney functions trending down, stable Pulmonary following Prognosis is guarded with multiple medical problems and comorbid conditions. CODE STATUS was discussed with the patient per her request as she wanted to address that she does not want mechanical ventilation but if requiring CPR or other measures patient like to continue with full code Informational hospice consult placed per patient request and would like daughter present for the informational meeting Recommend repeat labs in the a.m. and will continue to monitor closely Encouraged increased activity as tolerated The impression and plan of care has been dictated by Rekha Finn, Nurse Practitioner as directed. Dr. Hugo MD I have performed a history and examination and MDM of this patient, discussed the same with the dictator, and agree with the dictator's assessment and plan as written ,documented as a scribe. Based on total visit time, I have performed more than 50% of the visit. Objective - Vital Signs Vital signs: Vital Signs Temp 97.9 F 11/06/21 08:00 Pulse 82 11/06/21 08:28 Resp 18 11/06/21 08:28 BP 176/72 11/06/21 08:00 Pulse Ox 96 11/06/21 08:00 Intake & Output 11/05/21 11/06/21 11/06/21 18:59 06:59 18:59 Other: Voiding Method Toilet # Voids 1 - Labs CBC & Chem 7: 11/06/21 10:19 11/06/21 10:19 Labs: Abnormal Lab Results - Last 24 Hours (Table) 11/05/21 11/05/21 11/05/21 Range/Units 11:09 16:53 20:25 POC Glucose (mg/dL) 362 H 256 H 317 H (75-99) mg/dL 11/06/21 Range/Units 07:11 POC Glucose (mg/dL) 283 H (75-99) mg/dL
--- NOTE | 2021-11-06 15:42 | XR ---
EXAMINATION TYPE: XR chest 1V DATE OF EXAM: 11/06/2021 COMPARISON: 11/03/2021 HISTORY: Difficulty in breathing TECHNIQUE: Single frontal view of the chest is obtained. FINDINGS: Atherosclerotic change aorta. There is bilateral consolidation with small effusion. Patchy perihilar infiltrate. Biapical pleural thickening. Diffuse osteopenia and arthropathy of the shoulde rs. Calcification along the neck of the left humerus. Hypertrophic and degenerative changes of the sp ine. IMPRESSION: 1. Patchy bilateral infiltrate and small effusion are stable. No interval change.
[2021-11-06 16:53] LABS: Glucose,Whole Blood 229 mg/dL (75-99)
[2021-11-06 20:57] LABS: Glucose,Whole Blood 236 mg/dL (75-99)
[2021-11-06] MEDS: ZOLPIDEM 5 MG TAB PO PRN (21:20)
[2021-11-06] MEDS: SERTRALINE 50 MG TAB PO SCH (21:21)
[2021-11-06] MEDS: INSULIN DETEMIR (LEVEMIR) 100 UNIT/ML SYR SQ SCH (21:21)
[2021-11-06] MEDS: MIRTAZAPINE 15 MG TAB PO SCH (21:21)
[2021-11-06] MEDS: ATORVASTATIN 20 MG TAB PO SCH (21:21)
[2021-11-07] MEDS: methylPREDNISolone SOD SUCCI 40 MG/ML 1 ML VIAL IV SCH ×2 (00:11→08:52)
[2021-11-07 03:37] VITALS: TEMP 97.6
[2021-11-07 07:08] LABS: Glucose,Whole Blood 230 mg/dL (75-99)
[2021-11-07] MEDS: MULTIVITAMINS, THERA 1 EACH TAB PO SCH (07:38)
[2021-11-07] MEDS: amLODIPine 10 MG TAB PO SCH (07:38)
[2021-11-07] MEDS: cloNIDine HCL 0.1 MG TAB PO SCH (07:38)
[2021-11-07] MEDS: PANTOPRAZOLE 40 MG TABLET PO SCH (07:38)
[2021-11-07] MEDS: LEVOTHYROXINE 125 MCG TAB PO SCH (07:38)
[2021-11-07] MEDS: carvediloL 12.5 MG TAB PO SCH (07:38)
[2021-11-07] MEDS: INSULIN ASPART (NovoLOG) 100 UNIT/ML VIAL SQ SCH ×2 (08:51→13:49)
[2021-11-07] MEDS: IPRATROPIUM-ALBUTEROL 3 ML NEB INHALATION SCH ×2 (09:33→13:10)
[2021-11-07 10:24] LABS: Basophils % (A) 0 %; Eosinophils % (A) 0 %; Hypochromasia Slight; Lymphocytes # (A) 1.1 k/uL (1.0-4.8); Lymphocytes % (A) 9 %; MCH 30.5 pg (25.0-35.0); MCHC 32.5 g/dL (31.0-37.0); MCV 93.8 fL (80.0-100.0); Mean Platelet Volume 7.6; Monocytes # (A) 0.4 k/uL (0-1.0); Monocytes % (A) 3 %; Neutrophils # (A) 11.4 k/uL (1.3-7.7); Neutrophils % (A) 87 %; Platelet Count 294 k/uL (150-450); RBC 3.63 m/uL (3.80-5.40); WBC 13.1 k/uL (3.8-10.6)
[2021-11-07 10:35] LABS: African American GFR (CKD) 44 (>60 ml/min/1.73 sqM); Anion Gap 11 mmol/L; Blood Urea Nitrogen 40 mg/dL (7-17); Calcium 7.6 mg/dL (8.4-10.2); Carbon Dioxide 30 mmol/L (22-30); Chloride 91 mmol/L (98-107); Glucose 333 mg/dL (74-99); Non-African American GFR(CKD) 38 (>60 ml/min/1.73 sqM); Potassium 4.4 mmol/L (3.5-5.1); Sodium 132 mmol/L (137-145)
[2021-11-07] MEDS: APIXABAN 2.5 MG TABLET PO SCH (11:07)
[2021-11-07] MEDS: LEVOFLOXACIN 250 MG TAB PO SCH (11:07)
--- NOTE | 2021-11-07 11:25 | P.PN ---
Subjective Progress Note Date: 11/07/21 The patient is seen today 11/07/2021 in follow-up on the regular medical floor. She is awake and alert in no acute distress. Sitting up in a chair at the bedside. She is maintaining O2 saturations in the 90s on 6 L high flow nasal cannula. No worsening shortness of breath, cough or congestion. Chest x-ray reveals stable bilateral patchy infiltrates. White count 13.1. Hemoglobin 11.0. Sodium 132. Potassium 4.4. BUN 40. Creatinine 1.30. She is continued on DuoNeb inhalations, IV Solu-Medrol and antibiotics in the form of Levaquin. Anticoagulated with Eliquis. Objective - Vital Signs Vital signs: Vital Signs Temp 97.6 F 11/07/21 07:36 Pulse 64 11/07/21 09:48 Resp 22 11/07/21 07:36 BP 184/81 11/07/21 07:36 Pulse Ox 96 11/07/21 01:35 Intake & Output 11/06/21 11/07/21 11/07/21 18:59 06:59 18:59 Intake Total 600 Balance 600 Intake: Oral 600 Other: Voiding Method Toilet Toilet # Voids 3 2 - Exam GENERAL EXAM: Alert, very pleasant 81-year-old white female on 6 L of oxygen with a pulse ox of 96%, short of breath with conversation comfortable in no apparent distress. HEAD: Normocephalic/atraumatic. EYES: Normal reaction of pupils, equal size. Conjunctiva pink, sclera white. NOSE: Clear with pink turbinates. THROAT: No erythema or exudates. NECK: No masses, no JVD, no thyroid enlargement, no adenopathy. CHEST: No chest wall deformity. Symmetrical expansion. LUNGS: Equal air entry with bilateral end expiratory wheeze, diminished. CVS: Regular rate and rhythm, normal S1 and S2, no gallops, no murmurs, no rubs ABDOMEN: Soft, nontender. No hepatosplenomegaly, normal bowel sounds, no guarding or rigidity. EXTREMITIES: No clubbing, no edema, no cyanosis, 2+ pulses and upper and lower extremities. MUSCULOSKELETAL: Muscle strength and tone normal. SPINE: No scoliosis or deformity SKIN: No rashes CENTRAL NERVOUS SYSTEM: No focal deficits, tone is normal in all 4 extremities. PSYCHIATRIC: Alert and oriented -3. Appropriate affect. Intact judgment and insight. - Labs CBC & Chem 7: 11/07/21 09:56 11/07/21 09:56 Labs: Abnormal Lab Results - Last 24 Hours (Table) 11/06/21 11/06/21 11/06/21 Range/Units 11:46 16:52 20:56 WBC (3.8-10.6) k/uL RBC (3.80-5.40) m/uL Hgb (11.4-16.0) gm/dL Neutrophils # (1.3-7.7) k/uL Sodium (137-145) mmol/L Chloride (98-107) mmol/L BUN (7-17) mg/dL Creatinine (0.52-1.04) mg/dL Glucose (74-99) mg/dL POC Glucose (mg/dL) 344 H 229 H 236 H (75-99) mg/dL Calcium (8.4-10.2) mg/dL 11/07/21 11/07/21 11/07/21 Range/Units 07:07 09:56 09:56 WBC 13.1 H (3.8-10.6) k/uL RBC 3.63 L (3.80-5.40) m/uL Hgb 11.0 L (11.4-16.0) gm/dL Neutrophils # 11.4 H (1.3-7.7) k/uL Sodium 132 L (137-145) mmol/L Chloride 91 L (98-107) mmol/L BUN 40 H (7-17) mg/dL Creatinine 1.30 H (0.52-1.04) mg/dL Glucose 333 H (74-99) mg/dL POC Glucose (mg/dL) 230 H (75-99) mg/dL Calcium 7.6 L (8.4-10.2) mg/dL Assessment and Plan Assessment: 1 Acute COPD exacerbation with secondary shortness of breath. Chest x-ray is not showing any acute abnormalities. 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 articulation with Eliquis, the patient is known to have previous history of pulmonary embolism, nontolerant to warfarin 4 Rheumatoid arthritis 5 Obstructive sleep apnea nontolerant to CPAP therapy 6 History of skin cancer in the form of squamous cell carcinoma and basal cell carcinoma and melanoma, all resected 7 History of diverticular disease 8 Gastroesophageal reflux disease 9 Remote history of pulmonary embolism, in a postoperative setting 10 Hypertension 11 Hypothyroidism 12 Chronic back pain has been on [place] 7.5 and she'll be given 1 tablet every 24 hours on an as-needed basis for ongoing pain. 13 Coronary artery disease with nonocclusive disease based on a cardiac c atheterization from 2018 with mild disease involving the LAD, preserved LV function 14 Chronic kidney disease, stage III, creatinine stable at 1.3 15 Osteoporosis with multiple compression fracture deformity of the thoracic spine and history of chronic back pain secondary to previous falls 16 Compression fracture of L2 spine 17 UTI secondary to enterococcus fecium , treated, repeat UA and cultures are still pending Plan: The patient was seen and evaluated Currently stable from the pulmonary standpoint She is requesting to be placed in hospice today She is a DO NOT RESUSCITATE/DO NOT INTUBATE CODE STATUS We will follow sign off the case I have personally seen and examined the patient, performed the documentation and the assessment and plan as written. Number of minutes spent on the visit: 10.
[2021-11-07 11:52] LABS: Glucose,Whole Blood 265 mg/dL (75-99)
[2021-11-07] MEDS ORDERED: amLODIPine 10 MG TAB PO STA (15:10)
[2021-11-07 15:17] VITALS: BP 182/79; PULSE 64; RESP 22
--- NOTE | 2021-11-08 09:49 | P.DS ---
Providers Date of admission: 11/03/21 10:41 Expected date of discharge: 11/07/21 Attending physician: Hilario Rodriguez Consults: 11/03/21 10:40 Consult Physician Routine Consulting Provider: Ying Pearson Consult Reason/Comments: COPD Do you want consulting provider notified?: Yes Primary care physician: Ying Pearson Hospital Course: Final diagnosis Worsening shortness of breath secondary to acute COPD exacerbation with possible tracheobronchitis Chronic hypoxic respiratory failure on oxygen 5 L via nasal cannula at home Patient history of PE Obstructive sleep apnea on CPAP at home Recent history of Enterococcus urinary tract infection treated with daptomycin. Chronic kidney disease stage III with baseline creatinine around 1.6. Hypothyroidism Hypertension Non-occlusive coronary artery disease GERD Rheumatoid arthritis Compression fracture of L2 vertebrae. Conservative management per orthopedic surgery Previous history of fall Obesity with BMI 34.5 Osteoporosis with multiple compression fracture deformity of the thoracic spine vertebrae, with back pain secondary to fall 2 weeks prior to admission Chronic back pain on Poplar 7.5 Diabetes type 2 recent onset with A1c 8.4 DVT prophylaxis No code, okay for CPR, no mechanical ventilation Discharge disposition Patient is being discharged in a stable condition with guarded prognosis to [facility] with [facility]. Patient will follow-up with Dr. Pearson in the outpatient setting upon discharge. Total time taken is greater than 35 minutes. Hospital course This is a 81-year-old female who was recently admitted with COPD vascular being she and was being closely monitored. Pulmonary following closely and patient was placed on IV steroids along with continued breathing inhalational treatments and prophylactic antibiotics in the form of Levaquin. Patient maintained on 5 L which is chronic for her in the outpatient setting although was requiring more oxygen and initially on 8 L via nasal cannula. Weaning FiO2 as tolerated patient back to baseline of 5 L. Patient will continue with short prednisone taper to complete the course and antibiotics have been discontinued. Patient met with [facility] as she was already registered with palliative care and patient is agreeable and has signed on to [facility] and will continue at the [facility]. Appropriate medications have been discontinued. Currently no reports of chest pain, shortness of breath, or palpitations. Patient is afebrile. No reports of nausea or vomiting and patient is tolerating diet. Patient will be discharged home to [facility] today. Guarded prognosis. Physical exam: Patient is sitting up in the chair comfortably, awake, alert and oriented 3, ill-appearing.. Appears in positive spirits today and states she is feeling better and ready to go home HEENT: Normocephalic. Neck is supple. Pupils reactive. Nostrils clear. Oral cavity is moist. Neck reveals no JVD, carotid bruits, or thyromegaly. CHEST EXAMINATION: Trachea is central. Symmetrical expansion. Bilateral diminished air entry and scattered rhonchi and wheezing. Nonlabored breathing.. CARDIAC: Normal S1, S2 with no gallops. No murmurs ABDOMEN: Soft. Bowel sounds normal. No organomegaly. No abdominal bruits. Extremities: Bilateral 1+ pedal edema. No clubbing or cyanosis Neurologically awake, alert, oriented x3 with well-coordinated movements. No focal deficits noted Skin: No rash or skin lesions. Psychiatric: Cooperative. Non-suicidal Musculoskeletal: No joint swelling or deformity. Normal range of motion. Please refer to medication reconciliation sheet for a list of medications. The impression and plan of care has been dictated by Rekha Finn, Nurse Practitioner as directed. Dr. Hugo MD I have performed a history and examination and MDM of this patient, discussed the same with the dictator, and agree with the dictator's assessment and plan as written ,documented as a scribe. Based on total visit time, I have performed more than 50% of the visit. Patient Condition at Discharge: Stable Plan - Discharge Summary Discharge Rx Participant: No New Discharge Prescriptions: New Ipratropium-Albuterol Nebulize [Duoneb 0.5 mg-3 mg/3 ml Soln] 3 ml INHALATION RT-Q4H PRN ml PRN Reason: Shortness Of Breath Or Wheezing predniSONE 10 mg PO DIRECTED #30 tab Continue Levothyroxine Sodium [Synthroid] 125 mcg PO DAILY@0700 amLODIPine [Norvasc] 10 mg PO DAILY@0700 Sertraline [Zoloft] 50 mg PO HS@1900 Acetaminophen [Tylenol] 500 - 1,000 mg PO Q6H PRN PRN Reason: Fever And/ Or Pain Calcium Carbonate [Tums] 1,000 - 2,000 mg PO DAILY PRN PRN Reason: Gi Upset Spironolactone 25 mg PO DAILY@0700 guaiFENesin [Mucinex] 1,200 mg PO Q12H PRN PRN Reason: Congestion Ondansetron Odt [Zofran ODT] 4 mg PO Q8H PRN PRN Reason: Nausea cloNIDine HCL [Catapres] 0.3 mg PO BID@699,1899 Mirtazapine [Remeron] 15 mg PO HS@190 Docusate [Colace] 400 mg PO HS@190 Multivit-Min/Iron/Folic/Lutein [Centrum Silver Women Tablet] 1 tab PO DAILY@07 SILVER sulfADIAZINE Cream [Silvadene 1% Cream] 1 applic TOPICAL BID@699,1899 Zolpidem Tartrate [Ambien] 5 mg PO HS PRN PRN Reason: Insomnia Guaifenesin/Dextromethorphan [Robitussin Cough-Chest Dm Liq] 20 ml PO DIRECTED PRN PRN Reason: Cough HYDROcodone/APAP 7.5-325MG [Poplar 7.5-325] 1 tab PO Q6H PRN PRN Reason: Pain Lansoprazole [Prevacid] 30 mg PO DAILY@07 Carvedilol [Coreg] 25 mg PO BID@07,1899 Colon Health Probiotic 1 cap PO DAILY@07 Ipratropium-Albuterol Nebulize [Duoneb 0.5 mg-3 mg/3 ml Soln] 3 ml INHALATION RT-QID Budesonide-Formot 160-4.5 Mcg [Symbicort 160-4.5 Mcg Inhaler] 2 puff INHALATION RT-BID 30 Days #8 gm Black Elderberry 2,000 mg PO BID@699,1899 Furosemide [Lasix] 40 mg PO BID@699,1899 Discontinued Simvastatin 40 mg PO HS@190 Apixaban [Eliquis] 5 mg PO BID@07,190 Discharge Medication List Levothyroxine Sodium [Synthroid] 125 mcg PO DAILY@0710/18/20 [History] amLODIPine [Norvasc] 10 mg PO DAILY@69910/18/20 [History] Sertraline [Zoloft] 50 mg PO HS@19006/03/21 [History] cloNIDine HCL [Catapres] 0.3 mg PO BID@07,189906/03/21 [History] Docusate [Colace] 400 mg PO HS@19012/21 [History] Mirtazapine [Remeron] 15 mg PO HS@189906/29/21 [History] Multivit-Min/Iron/Folic/Lutein [Centrum Silver Women Tablet] 1 tab PO DAILY@69907/10/21 [History] SILVER sulfADIAZINE Cream [Silvadene 1% Cream] 1 applic TOPICAL BID@07,189907/27/21 [History] Acetaminophen [Tylenol] 500 - 1,000 mg PO Q6H PRN 08/26/21 [History] Calcium Carbonate [Tums] 1,000 - 2,000 mg PO DAILY PRN 08/26/21 [History] Carvedilol [Coreg] 25 mg PO BID@699,189908/26/21 [History] Guaifenesin/Dextromethorphan [Robitussin Cough-Chest Dm Liq] 20 ml PO DIRECTED PRN 08/26/21 [History] HYDROcodone/APAP 7.5-325MG [Poplar 7.5-325] 1 tab PO Q6H PRN 08/26/21 [History] Lansoprazole [Prevacid] 30 mg PO DAILY@69908/26/21 [History] Spironolactone 25 mg PO DAILY@69908/26/21 [History] Zolpidem Tartrate [Ambien] 5 mg PO HS PRN 08/26/21 [History] Colon Health Probiotic 1 cap PO DAILY@69909/25/21 [History] Ipratropium-Albuterol Nebulize [Duoneb 0.5 mg-3 mg/3 ml Soln] 3 ml INHALATION RT-QID 09/25/21 [History] guaiFENesin [Mucinex] 1,200 mg PO Q12H PRN 09/25/21 [History] Budesonide-Formot 160-4.5 Mcg [Symbicort 160-4.5 Mcg Inhaler] 2 puff INHALATION RT-BID 30 Days #8 gm 09/27/21 [Rx] Ondansetron Odt [Zofran ODT] 4 mg PO Q8H PRN 10/25/21 [History] Black Elderberry 2,000 mg PO BID@07,189911/03/21 [History] Furosemide [Lasix] 40 mg PO BID@0700,1900 11/03/21 [History] Ipratropium-Albuterol Nebulize [Duoneb 0.5 mg-3 mg/3 ml Soln] 3 ml INHALATION RT-Q4H PRN ml 11/07/21 [Rx] predniSONE 10 mg PO DIRECTED #30 tab 11/07/21 [Rx] Follow up Appointment(s)/Referral(s): [facility] [NON-STAFF] - Activity/Diet/Wound Care/Special Instructions: Patient is returning to [facility] with [facility] hospice Activity as tolerated Continue current diet Continue medications as prescribed Discharge Disposition: HOME WITH HOSPICE
== END 2021-11-07 15:18 | disposition hospice, home (50) | DRG 190 ==
LOC: EC 07:56 → 4SSUR 10:41
PROVIDERS: ADMIT Internal Medicine; ATTEND Internal Medicine
PROC: 5A0945A Assistance with Respiratory Ventilation, 24-96 Consecutive Hours, High Flow/Velocity Cannula (ICD-10-PCS; principal; 2021-11-05)
DX: J44.1 Chronic obstructive pulmonary disease with (acute) exacerbation (principal); J96.21 Acute and chronic respiratory failure with hypoxia; E87.1 Hypo-osmolality and hyponatremia; I13.0 Hypertensive heart and chronic kidney disease with heart failure and stage 1 through stage 4 chronic kidney disease, or unspecified chronic kidney disease; N17.9 Acute kidney failure, unspecified; N39.0 Urinary tract infection, site not specified; M48.56XA Collapsed vertebra, not elsewhere classified, lumbar region, initial encounter for fracture; E03.9 Hypothyroidism, unspecified; N18.30 Chronic kidney disease, stage 3 unspecified; E11.22 Type 2 diabetes mellitus with diabetic chronic kidney disease; E66.9 Obesity, unspecified; Z68.34 Body mass index [BMI] 34.0-34.9, adult; E78.5 Hyperlipidemia, unspecified; F03.90 Unspecified dementia, unspecified severity, without behavioral disturbance, psychotic disturbance, mood disturbance, and anxiety; Z66 Do not resuscitate; F41.9 Anxiety disorder, unspecified; G47.33 Obstructive sleep apnea (adult) (pediatric); G89.29 Other chronic pain; I25.10 Atherosclerotic heart disease of native coronary artery without angina pectoris; I50.9 Heart failure, unspecified; K21.9 Gastro-esophageal reflux disease without esophagitis; M06.9 Rheumatoid arthritis, unspecified; M81.0 Age-related osteoporosis without current pathological fracture; Z51.5 Encounter for palliative care; Z82.5 Family history of asthma and other chronic lower respiratory diseases; W19.XXXA Unspecified fall, initial encounter; Z79.01 Long term (current) use of anticoagulants; Z79.4 Long term (current) use of insulin; Z79.51 Long term (current) use of inhaled steroids; Z79.890 Hormone replacement therapy; Z79.891 Long term (current) use of opiate analgesic; Z79.899 Other long term (current) drug therapy; Z80.1 Family history of malignant neoplasm of trachea, bronchus and lung; Z82.49 Family history of ischemic heart disease and other diseases of the circulatory system; J40 Bronchitis, not specified as acute or chronic; Z83.3 Family history of diabetes mellitus; Z85.820 Personal history of malignant melanoma of skin; Z86.711 Personal history of pulmonary embolism; Z87.891 Personal history of nicotine dependence; Z90.710 Acquired absence of both cervix and uterus; Z91.81 History of falling; Z99.81 Dependence on supplemental oxygen; B95.2 Enterococcus as the cause of diseases classified elsewhere; R25.1 Tremor, unspecified
CPT/HCPCS: 36415; 71045; 80048; 80053; 81001; 83036; 83605; 83735; 83880; 84145; 84484; 85025; 85610; 85730; 93005; 94640; 94760; 96374; 96375; 99285